=== PATIENT | female | born 1945 | race Caucasian/White ===

== ENCOUNTER → 2017-04-22 10:20 | Outpatient (CLI) | payer MEDICARE, SELFPAY ==
--- NOTE | 2017-04-22 10:27 | RAD_ITS ---
STUDY: X-RAY - THORACIC SPINE REASON FOR EXAM: Female, 71 years old. Chronic back pain. TECHNIQUE: 3 view(s) of the thoracic spine were obtained. COMPARISON: None. FINDINGS: Normal kyphosis of the thoracic spine. Mild dextroscoliosis. There is demineralization of the thoracic spine with endplate spondylosis. There is multilevel disc space narrowing of the thoracic spine. The soft tissue structures are unremarkable. RAD/Thoracic Spine 3 Views IMPRESSION: Multilevel disc space narrowing and spondylosis. Mild dextroscoliosis. Electronically Signed: Ty Martinez MD at 13:18 EST Tel [phone], Service support ,
== END ==
PROVIDERS: Family Provider Family Medicine; PCP Family Medicine; Visit Provider Anesthesiology Pain Medicine
DX: M54.9 Dorsalgia, unspecified (principal)
CPT/HCPCS: 72072

== ENCOUNTER → 2017-05-28 08:56 | Outpatient (CLI) | payer MEDICARE, OTHER, SELFPAY ==
--- NOTE | 2017-05-28 09:40 | CT_ITS ---
STUDY: CT BRAIN WITHOUT CONTRAST REASON FOR EXAM: Female, 71 years old. Cephalgia RADIATION DOSAGE (If Supplied By Facility): CTDIvol = ( 44.99 ) mGy, DLP = ( 745.49 ) mGycm TECHNIQUE: Transaxial CT imaging of the brain was performed without administration of intravenous contrast material. Individualized dose optimization techniques were used for this CT. COMPARISON: None. FINDINGS: Normal soft tissue structures. Normal calvarium. There is asymmetry of the ventricles consistent with an anatomic variant. There are areas of decreased attenuation within the white matter tracts of the supratentorial brain, consistent with microvascular disease changes. Normal basal ganglia and thalami. Normal brainstem. Normal cerebellum. There is no intracranial hemorrhage. There are no findings of an acute ischemic infarction. Normal visualized paranasal sinuses. CT/Brain/Head without Contrast IMPRESSION: Chronic involutional changes of the brain. Electronically Signed: Slava Armendariz MD at 10:32 EDT Tel , Service support ,
== END ==
PROVIDERS: Family Provider Family Medicine; PCP Family Medicine; Visit Provider Family Medicine
DX: R51 Headache (principal); C80.1 Malignant (primary) neoplasm, unspecified
CPT/HCPCS: 70450

== ENCOUNTER 2017-06-18 17:38 | Inpatient (IN) | payer MEDICARE, OTHER, SELFPAY ==
[2017-06-18 17:45] VITALS: BP 142/81; PULSE 60; RESP 16; TEMP 36.6; O2SAT 98
[2017-06-18 17:46] VITALS: BMI 37.2
[2017-06-18 18:08] VITALS: PULSE 60
[2017-06-18 19:00] VITALS: PULSE 61
[2017-06-18] MEDS: 0.9% Normal Saline 1,000 ML 100 ML IV (19:04)
--- NOTE | 2017-06-18 19:26 | PCM.HP.STD ---
Problem List (1) Breast CA Status: Acute (2) Ischemic cerebrovascular accident (CVA) Status: Acute (3) HTN (hypertension) Status: Chronic (4) Chronic pain syndrome Status: Acute (5) GERD (gastroesophageal reflux disease) Status: Acute (6) Osteoarthritis Status: Acute (7) Obesity Status: Acute (8) Asthma Status: Acute (9) Gout Status: Acute (10) Hyperuricemia Status: Acute (11) Dehydration Status: Acute History of Present Illness Date of Admission: 06/18/17 Chief Complaint: left arm and leg numbness and weakness and L facial droop. The patient is a 71 year old F with a past medical history of hyperuricemia, gout, osteoarthritis, asthma, hypertension, enlarged heart with history of CHF, heart murmur, chronic pain syndrome, GERD, endometriosis (status post KENNETH/BSO), diverticulosis and left breast cancer diagnosed in the fall 2016 (treated with lumpectomy and radiation) who presented to [facility] 06[facility]18[facility]17 c/o left facial droop, slurred speech, numbness and weakness of the left upper extremity and left leg. A CT scan of the brain showed no acute findings. Lab was remarkable for an elevated BUN and creatinine. She was transferred to [facility] for a neurology consult and MRI. She did not receive aspirin in the emergency room and she did tell me that she has not been taking the 81 mg of ASA prescribed to her daily. She has no prior history of a stroke. She tells me that she was diagnosed many years ago with an enlarged heart and congestive heart failure however a stress test done at [facility] in 2014 showed an ejection fraction of 76% with no evidence of ischemia. EKG sent with her from the emergency room shows normal sinus rhythm with a right bundle branch block and possible remote inferior wall myocardial infarction with Q waves in 3 and aVF. There are no suspicious ST or T-wave changes. She was admitted to a monitored bed on PCU with diagnosis of acute ischemic CVA. He is not a candidate for TPA as the symptoms started early this morning. TIA/CVA protocol was initiated. Past Medical History Past Medical History (Chronic Problems): Chronic Problems HTN (hypertension) (Chronic) Allergies ibandronate sodium [From Boniva] Allergy (Verified 03/29/14 13:04) Rash levofloxacin [From Levaquin] Allergy (Verified 03/29/14 13:04) Swelling Penicillins Allergy (Verified 03/29/14 12:48) Rash mannitol [From Reclast] Adverse Reaction (Verified 03/29/14 13:12) Pain in joints water for injection,sterile [From Reclast] Adverse Reaction (Verified 03/29/14 13:12) Pain in joints zoledronic acid [From Reclast] Adverse Reaction (Verified 03/29/14 13:12) Pain in joints LAMBERTO Allergy (Uncoded 12/20/14 15:26) Other ALL LAMBERTO'S NOVACAINE, MARCAINE, BUPIVACAINE Home Medications: Ambulatory Orders Medication Instructions Recorded Carvedilol [Coreg (Beta Philippe)] 12.5 mg PO BID 10/18/13 Cyclobenzaprine [Flexeril] 10 mg PO TID PRN #10 tablet 10/18/13 Furosemide [Lasix] 80 mg PO BID 10/18/13 Gabapentin [Neurontin] 300 mg PO BID 10/18/13 Tramadol HCl 50 mg PO PRN PRN 10/18/13 Albuterol Inhaler [Ventolin Hfa] 1 - 2 puff INHALATION Q4H PRN PRN 03/29/14 Allopurinol [Zyloprim] 300 mg PO DAILY 03/29/14 Potassium Chloride [Klor-Con M10] 10 meq PO DAILY 03/29/14 Zolpidem Tartrate [Ambien] 10 mg PO PRN PRN 03/29/14 Mometasone Furoate [Asmanex 220 220 mcg INHALATION DAILY 12/20/14 mcg Twisthaler] Ranitidine HCl [Zantac 75] 75 mg PO DAILY 12/20/14 Aspirin 325 mg PO BIDCM #60 tablet 12/26/14 Hydrocodone Bitart/Apap 5-325 1 - 2 tablet PO Q4H PRN PRN #100 12/26/14 [[place] 5/325] tablet Surgical History: cholecystectomy, hysterectomy - KENNETH with BSO for endometriosis, total knee arthroplasty - Left [address] 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 Paternal History Items: - - Father had heart disease Sibling History Items: Cancer - She has a brother who is secondary to cancer but she does not know the primary. Review of Systems Constitutional: Denies: Chills, Fever, Weight Change Eyes: Denies: Blurred vision, Redness HEENT: Denies: Difficulty Hearing, Difficulty Swallowing, Head Aches, Sinus Congestion, Sinus Drainage Cardiovascular: Reports: Light Headedness - she gets lightheaded at times when she is standing.. Denies: Chest Pain, Palpitations Respiratory: Denies: Cough, Shortness of Breath, Sputum production Gastrointestinal: Denies: Abdominal Pain, Nausea, Vomiting Genitourinary: Denies: Dysuria Gynecological: Denies: Vaginal discharge Skin: Denies: Jaundice, Rash, Wounds Neurological: Reports: Slurred speech, Focal weakness - Left arm and leg, Numbness - Left arm and leg and left face with facial droop and slurred speech. Denies: Blurred vision, Confusion, Difficulty swallowing, Tremor, Seizures Psychiatric: Denies: Anxiety, Depression, Homicidal Ideations, Suicidal Ideations Endocrine: Denies: Change in Body Habitus Hematologic/ Lymphatic: Denies: Hx of blood clot VTE Information - Inpt Only VTE Present on Admission: No VTE Mechan Device Prophylaxis: SCD's VTE Pharm Prophylaxis ordered?: Yes Patient Problems: Active and Suspected Problems Breast CA (Acute) Ischemic cerebrovascular accident (CVA) (Acute) Chronic pain syndrome (Acute) GERD (gastroesophageal reflux disease) (Acute) Osteoarthritis (Acute) Obesity (Acute) Asthma (Acute) Gout (Acute) Hyperuricemia (Acute) Dehydration (Acute) - Physical Exam General: Alert, Oriented x3, Cooperative, No apparent distress, Well developed, Well nourished HEENT: Atraumatic, PERRLA, EOMI, Normocephalic, - - L facial droop Oral: No Gingival or Mucosal Lesions/ Ulcerations, Dry Mucosa Neck: Supple, No JVD, Negative Carotid Bruits, No Nodes, No Nuchal Rigidity, Trachea Midline Lungs: Clear to auscultation, Normal air movement, No rhonchi, No wheeze, No rales Cardiovascular: Regular rate, Regular Rhythm, Normal S1, Normal S2, Murmur - 1-2/6 at the second RICS with no radiation, No rub noted, No Gallop Abdomen: Bowel Sounds Present, Soft, Non Tender, Non-Distended, Obese Extremities: No clubbing, No cyanosis, No edema, No Calf Tenderness, Peripheral Pulses Normal Skin: No rashes, No breakdown, - - Superficial varicosities lower extremities Musculoskeletal: No Muscle Wasting Neurological: Motor Exam 5/5 strength throughout, - - L facial droop and mild slurred speech...has drift with the LLE. Was able to walk to the BR with a cane with no LOB Psych/Mental Status: Normal Affect, Appropriate Vital Signs Temp Pulse Resp BP Pulse Ox 97.8 F 60 16 142/81 H 98 06/18/17 17:45 06/18/17 18:08 06/18/17 17:45 06/18/17 17:45 06/18/17 17:45 Oxygen Flow Rate (L/min) 2 Oxygen Delivery Method Nasal Cannula Weight: 197 lb 1.492 oz Body Mass Index (BMI) 37.2 Intake and Output for Last 24 Hours 06/16/17 06/17/17 06/18/17 23:59 23:59 23:59 Intake Total 273 / 273 Balance 273 / 273 Assessment/Plan Active and Suspected Problems Breast CA (Acute) Ischemic cerebrovascular accident (CVA) (Acute) Chronic pain syndrome (Acute) GERD (gastroesophageal reflux disease) (Acute) Osteoarthritis (Acute) Obesity (Acute) Asthma (Acute) Gout (Acute) Hyperuricemia (Acute) Dehydration (Acute) Impressions 1. ischemic CVA with LUE and LLE numbness and weakness and with Left facial droop and slurred speech/dysarthria. She was admitted to a monitored bed on PCU and the TIA/CVA protocol was initiated. Echocardiogram has been ordered for the a.m. She has an allergy to contrast dye and gets crushing chest pain. MRI without contrast and MRA of the head and neck without contrast have been ordered. Neurology consult with Dr. Gayle. Aspirin 81 mg p.o. daily. Lipid panel in the a.m. 2. Hypertension 3. Breast cancer with history of left side lumpectomy and radiation in the fall 2017 4. GERD 5. Asthma 6. Obesity 7. Right bundle branch block 8. Hyperuricemia with history of gout 9. Osteoarthritis 10. History of endometriosis-status post KENNETH/BSO 11. History of diverticulosis 12. dehydration with an increased BUN/CREAT ratio and very dry MM Bolus with 500 cc's normal saline and start 100 cc/hr after the bolus. Hold diuretics. PT/ST/OT consults. Passed the bedside swallowing eval so will start a cardiac diet. Permissive HTN - will continue the Coreg to prevent reflex tachycardia Lipid panel in the AM and start Atorvastatin tonight Code Visit Inpatient E&M: 49996 Init Hosp L3
--- NOTE | 2017-06-18 19:32 | HP.PCM_ITS ---
Problem List (1) Breast CA Status: Acute (2) Ischemic cerebrovascular accident (CVA) Status: Acute (3) HTN (hypertension) Status: Chronic (4) Chronic pain syndrome Status: Acute (5) GERD (gastroesophageal reflux disease) Status: Acute (6) Osteoarthritis Status: Acute (7) Obesity Status: Acute (8) Asthma Status: Acute (9) Gout Status: Acute (10) Hyperuricemia Status: Acute (11) Dehydration Status: Acute History of Present Illness Date of Admission: 06/18/17 Chief Complaint: left arm and leg numbness and weakness and L facial droop. The patient is a 71 year old F with a past medical history of hyperuricemia, gout, osteoarthritis, asthma, hypertension, enlarged heart with history of CHF, heart murmur, chronic pain syndrome, GERD, endometriosis (status post KENNETH/BSO), diverticulosis and left breast cancer diagnosed in the fall 2016 (treated with lumpectomy and radiation) who presented to [facility] on 06/18/17 c/o left facial droop, slurred speech, numbness and weakness of the left upper extremity and left leg. A CT scan of the brain showed no acute findings. Lab was remarkable for an elevated BUN and creatinine. She was transferred to [facility] for a neurology consult and MRI. She did not receive aspirin in the emergency room and she did tell me that she has not been taking the 81 mg of ASA prescribed to her daily. She has no prior history of a stroke. She tells me that she was diagnosed many years ago with an enlarged heart and congestive heart failure however a stress test done at [facility] in 2014 showed an ejection fraction of 76% with no evidence of ischemia. EKG sent with her from the emergency room shows normal sinus rhythm with a right bundle branch block and possible remote inferior wall myocardial infarction with Q waves in 3 and aVF. There are no suspicious ST or T-wave changes. She was admitted to a monitored bed on PCU with diagnosis of acute ischemic CVA. He is not a candidate for TPA as the symptoms started early this morning. TIA/CVA protocol was initiated. Past Medical History Past Medical History (Chronic Problems): Chronic Problems HTN (hypertension) (Chronic) Allergies ibandronate sodium [From Boniva] Allergy (Verified 03/29/14 13:04) Rash levofloxacin [From Levaquin] Allergy (Verified 03/29/14 13:04) Swelling Penicillins Allergy (Verified 03/29/14 12:48) Rash mannitol [From Reclast] Adverse Reaction (Verified 03/29/14 13:12) Pain in joints water for injection,sterile [From Reclast] Adverse Reaction (Verified 03/29/14 13:12) Pain in joints zoledronic acid [From Reclast] Adverse Reaction (Verified 03/29/14 13:12) Pain in joints LAMBERTO Allergy (Uncoded 12/20/14 15:26) Other ALL LAMBERTO'S NOVACAINE, MARCAINE, BUPIVACAINE Home Medications: Ambulatory Orders Medication Instructions Recorded Carvedilol [Coreg (Beta Philippe)] 12.5 mg PO BID 10/18/13 Cyclobenzaprine [Flexeril] 10 mg PO TID PRN #10 tablet 10/18/13 Furosemide [Lasix] 80 mg PO BID 10/18/13 Gabapentin [Neurontin] 300 mg PO BID 10/18/13 Tramadol HCl 50 mg PO PRN PRN 10/18/13 Albuterol Inhaler [Ventolin Hfa] 1 - 2 puff INHALATION Q4H PRN PRN 03/29/14 Allopurinol [Zyloprim] 300 mg PO DAILY 03/29/14 Potassium Chloride [Klor-Con M10] 10 meq PO DAILY 03/29/14 Zolpidem Tartrate [Ambien] 10 mg PO PRN PRN 03/29/14 Mometasone Furoate [Asmanex 220 220 mcg INHALATION DAILY 12/20/14 mcg Twisthaler] Ranitidine HCl [Zantac 75] 75 mg PO DAILY 12/20/14 Aspirin 325 mg PO BIDCM #60 tablet 12/26/14 Hydrocodone Bitart/Apap 5-325 1 - 2 tablet PO Q4H PRN PRN #100 12/26/14 [Sargent 5/325] tablet Surgical History: cholecystectomy, hysterectomy - KENNETH with BSO for endometriosis , total knee arthroplasty - Left [address] 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 Paternal History Items: - - Father had heart disease Sibling History Items: Cancer - She has a brother who is secondary to cancer but she does not know the primary. Review of Systems Constitutional: Denies: Chills, Fever, Weight Change Eyes: Denies: Blurred vision, Redness HEENT: Denies: Difficulty Hearing, Difficulty Swallowing, Head Aches, Sinus Congestion, Sinus Drainage Cardiovascular: Reports: Light Headedness - she gets lightheaded at times when she is standing.. Denies: Chest Pain, Palpitations Respiratory: Denies: Cough, Shortness of Breath, Sputum production Gastrointestinal: Denies: Abdominal Pain, Nausea, Vomiting Genitourinary: Denies: Dysuria Gynecological: Denies: Vaginal discharge Skin: Denies: Jaundice, Rash, Wounds Neurological: Reports: Slurred speech, Focal weakness - Left arm and leg, Numbness - Left arm and leg and left face with facial droop and slurred speech. Denies: Blurred vision, Confusion, Difficulty swallowing, Tremor, Seizures Psychiatric: Denies: Anxiety, Depression, Homicidal Ideations, Suicidal Ideations Endocrine: Denies: Change in Body Habitus Hematologic/ Lymphatic: Denies: Hx of blood clot VTE Information - Inpt Only VTE Present on Admission: No VTE Mechan Device Prophylaxis: SCD's VTE Pharm Prophylaxis ordered?: Yes Patient Problems: Active and Suspected Problems Breast CA (Acute) Ischemic cerebrovascular accident (CVA) (Acute) Chronic pain syndrome (Acute) GERD (gastroesophageal reflux disease) (Acute) Osteoarthritis (Acute) Obesity (Acute) Asthma (Acute) Gout (Acute) Hyperuricemia (Acute) Dehydration (Acute) - Physical Exam General: Alert, Oriented x3, Cooperative, No apparent distress, Well developed, Well nourished HEENT: Atraumatic, PERRLA, EOMI, Normocephalic, - - L facial droop Oral: No Gingival or Mucosal Lesions/ Ulcerations, Dry Mucosa Neck: Supple, No JVD, Negative Carotid Bruits, No Nodes, No Nuchal Rigidity, Trachea Midline Lungs: Clear to auscultation, Normal air movement, No rhonchi, No wheeze, No rales Cardiovascular: Regular rate, Regular Rhythm, Normal S1, Normal S2, Murmur - 1-2 /6 at the second RICS with no radiation, No rub noted, No Gallop Abdomen: Bowel Sounds Present, Soft, Non Tender, Non-Distended, Obese Extremities: No clubbing, No cyanosis, No edema, No Calf Tenderness, Peripheral Pulses Normal Skin: No rashes, No breakdown, - - Superficial varicosities lower extremities Musculoskeletal: No Muscle Wasting Neurological: Motor Exam 5/5 strength throughout, - - L facial droop and mild slurred speech...has drift with the LLE. Was able to walk to the BR with a cane with no LOB Psych/Mental Status: Normal Affect, Appropriate Vital Signs Temp Pulse Resp BP Pulse Ox 97.8 F 60 16 142/81 H 98 06/18/17 17:45 06/18/17 18:08 06/18/17 17:45 06/18/17 17:45 06/18/17 17:45 Oxygen Flow Rate (L/min) 2 Oxygen Delivery Method Nasal Cannula Weight: 197 lb 1.492 oz Body Mass Index (BMI) 37.2 Intake and Output for Last 24 Hours 06/16/17 06/17/17 06/18/17 23:59 23:59 23:59 Intake Total 273 / 273 Balance 273 / 273 Assessment/Plan Active and Suspected Problems Breast CA (Acute) Ischemic cerebrovascular accident (CVA) (Acute) Chronic pain syndrome (Acute) GERD (gastroesophageal reflux disease) (Acute) Osteoarthritis (Acute) Obesity (Acute) Asthma (Acute) Gout (Acute) Hyperuricemia (Acute) Dehydration (Acute) Impressions 1. ischemic CVA with LUE and LLE numbness and weakness and with Left facial droop and slurred speech/dysarthria. She was admitted to a monitored bed on PCU and the TIA/CVA protocol was initiated. Echocardiogram has been ordered for the a.m. She has an allergy to contrast dye and gets crushing chest pain. MRI without contrast and MRA of the head and neck without contrast have been ordered. Neurology consult with Dr. Gayle. Aspirin 81 mg p.o. daily. Lipid panel in the a.m. 2. Hypertension 3. Breast cancer with history of left side lumpectomy and radiation in the fall 2017 4. GERD 5. Asthma 6. Obesity 7. Right bundle branch block 8. Hyperuricemia with history of gout 9. Osteoarthritis 10. History of endometriosis-status post KENNETH/BSO 11. History of diverticulosis 12. dehydration with an increased BUN/CREAT ratio and very dry MM Bolus with 500 cc's normal saline and start 100 cc/hr after the bolus. Hold diuretics. PT/ST/OT consults. Passed the bedside swallowing eval so will start a cardiac diet. Permissive HTN - will continue the Coreg to prevent reflex tachycardia Lipid panel in the AM and start Atorvastatin tonight Code Visit Inpatient E&M: 32433 Init Hosp L3
--- NOTE | 2017-06-18 19:47 | NURSING ---
This nurse was unable to complete home medication reconciliation as patients roommate forgot to bring her medication list. Dr. Mullins aware. Patient's roommate will bring medication list on dump mot[employer]. YANNI Santiago aware.
--- NOTE | 2017-06-18 19:53 | ECHOD_ITS ---
Reason For Study: TIA/CVA Procedure This was a 2D Doppler, Color Flow transthoracic echocardiogram. Exam performed portable in patient room. Left Ventricle Normal LV size. Left ventricular systolic function is normal. The estimated ejection fraction is 60 %. Transmitral diastolic flow velocities suggest mild (stage 1) diastolic dysfunction (reversed pattern). No regional wall motion abnormalities noted. Right Ventricle Normal RV size. Normal systolic function. Atria Normal left atrium. Normal right atrium. Bubble contrast study negative for right to left interatrial shunt. Mitral Valve Normal mitral valve. Mild (1+) eccentric mitral valve insufficiency. Tricuspid Valve Normal tricuspid valve. Mild (1+) tricuspid valve insufficiency. Pulmonary artery systolic pressure is 32 mmHg. Aortic Valve Normal aortic valve. Mild (1+) eccentric aortic valve insufficiency. Pulmonic Valve Normal pulmonic valve. Great Vessels Normal aortic root. The pulmonary artery is normal size. Normal inferior vena cava. Pericardium/Pleural No pericardial effusion. Medication Performed a rapid injection of agitated mix of 9 cc saline and 1cc air to assess for atrial septal defect. MMode/2D Measurements & Calculations LVIDd: 4.0 cm IVSd: 1.1 cm Ao root diam: 3.4 cm LVIDs: 2.6 cm LVPWd: 1.2 cm LA dimension: 4.8 cm RVDd: 2.8 cm FS: 33.3 % LAV(MOD-bp): 47.9 ml LAV(MOD-bp) Indexed: 25.5 ml/m2 LA A4 area: 14.8 cm2 RA A4 area: 14.0 cm2 LAV(MOD-sp2): 60.2 ml LAV(MOD-sp4): 36.3 ml Doppler Measurements & Calculations MV E max alonso: 74.1 cm/sec Lat Peak E' Alonso: 6.0 cm/sec Med Peak E' Alonso: 2.9 cm/sec MV A max alonso: 127.9 cm/sec E/E' lat: 12.3 E/E' med: 25.5 MV E/A: 0.58 Ao V2 max: 164.4 cm/sec AI max alonso: 383.5 cm/sec LV V1 max: 123.7 cm/sec Ao max P.8 mmHg AI max P.8 mmHg LV V1 max P.1 mmHg Ao V2 mean: 112.8 cm/sec AI dec slope: 224.4 cm/sec2 Ao mean P.6 mmHg AI P1/2t: 500.6 msec Ao V2 VTI: 37.1 cm PA V2 max: 92.3 cm/sec TR max alonso: 267.1 cm/sec TR max P.6 mmHg Interpretation Summary Normal LV size. Left ventricular systolic function is normal. The estimated ejection fraction is 60 %. Transmitral diastolic flow velocities suggest mild (stage 1) diastolic dysfunction (reversed pattern). Mild (1+) eccentric mitral valve insufficiency. Mild (1+) tricuspid valve insufficiency. Mild (1+) eccentric aortic valve insufficiency. Ordering Physician: Kaylene Mullins Referring Physician: Mirlande Khoury Performed By: Dolores Serrano, WILLIAN, RVT
--- NOTE | 2017-06-18 19:53 | EKG12_ITS ---
Test Reason : ADMIT EKG Blood Pressure : / mmHG Vent. Rate : 061 BPM Atrial Rate : 061 BPM P-R Int : 210 ms QRS Dur : 134 ms QT Int : 460 ms P-R-T Axes : 038 035 019 degrees QTc Int : 463 ms Sinus rhythm with 1st degree A-V block Right bundle branch block Abnormal ECG When compared with ECG of 18-OCT-2013 17:48, Right bundle branch block is now Present Confirmed by ALISON PAULA ([id number]), editor index KAVYA HERRERA ([id number]) on 06/24/2017 3:00:04 PM Referred By: Rede Cummings Confirmed By:ALISON PAULA
--- NOTE | 2017-06-18 20:07 | RAD_ITS ---
STUDY: X-RAY CHEST REASON FOR EXAM: Female, 71 years old. CHF and cough TECHNIQUE: PA and lateral COMPARISON: March 29, 2014 FINDINGS: The lungs are clear and expanded. There is no demonstrated pleural abnormality. Normal size heart. Normal mediastinum and nicole. Normal visualized pulmonary arteries. Normal visualized aortic arch and descending thoracic aorta. Dorsal spine demonstrates scoliosis and degenerative changes.. Normal visualized ribs, clavicles, and shoulders. There is no demonstrated abnormality of the visualized soft tissue structures of the upper abdomen. No significant change since prior study RAD/Chest PA and Lateral IMPRESSION: No acute cardiopulmonary pathology Electronically Signed: Daniel Pedraza MD at 20:54 EDT , Service support ,
[2017-06-18 20:35] VITALS: O2SAT 95
[2017-06-18 21:08] LABS: AST(SGOT) 15 U/L (15-37); Alanine Aminotransfer ALT/SGPT 17 U/L (13-56); Albumin, Serum 3.3 g/dL (3.2-5.0); Alkaline Phosphatase 150 U/L (45-117); Bilirubin, Direct 0.17 mg/dL (0.00-0.30); Globulin 3.4 g/dL (2.2-4.2); Magnesium 2.6 mg/dL (1.6-2.6); Protein, Total 6.7 g/dL (6.4-8.2); Thyroid Stim Hormone (TSH) 1.36 uIU/mL (0.358-3.74)
[2017-06-18] MEDS: Enoxaparin 30 MG/0.3 ML Syringe SC (21:37)
[2017-06-18] MEDS: Carvedilol 12.5 MG Tablet PO (21:38)
[2017-06-18] MEDS: Pantoprazole Sodium 20 MG Tablet PO (21:38)
[2017-06-18] MEDS: Gabapentin 300 MG Capsule PO (21:38)
[2017-06-18] MEDS: Atorvastatin Calcium 80 MG Tablet PO (21:38)
[2017-06-18 21:45] VITALS: BP 144/81; PULSE 64; RESP 16; TEMP 37.1; O2SAT 95
[2017-06-18 23:00] VITALS: PULSE 64
[2017-06-19] VITALS (15 sets, daily range): BP systolic 125–199; BP diastolic 67–96; PULSE 50–80; RESP 16–21; TEMP 36.6–37.1; O2SAT 94–97; BMI 37.2
[2017-06-19] MEDS: 0.9% Normal Saline 1,000 ML 100 ML IV ×2 (01:35→14:13)
[2017-06-19 05:45] LABS: Hemoglobin 12.2 g/dl (12.0-15.0); Mean Corp Hgb Conc 32.1 g/gl (32-36); Mean Corpuscular Hgb 29.7 pg (27.0-32.0); Mean Corpuscular Volume 92.5 fL (81-99); Mean Platelet Vol. 12.2 fl (6.2-12.0); Platelet Count 148 K/mm3 (150-450); RBC Distribution Width CV 14.5 % (11.6-14.6); RBC Distribution Width SD 47.9 fl (35.1-43.9); Red Blood Count 4.11 M/mm3 (4.2-5.4); White Blood Count 8.9 K/mm3 (4.4-11.0)
[2017-06-19 05:52] LABS: Scan Indicated on CBC? Y/N NO
[2017-06-19] MEDS: Budesonide Respules 0.5 MG/2 ML AMPUL.NEB. INHALATION ×2 (07:21→18:50)
[2017-06-19 09:31] LABS: ALB/GLOB Ratio 0.9 RATIO (0.9-2.4); AST(SGOT) 14 U/L (15-37); Alanine Aminotransfer ALT/SGPT 14 U/L (13-56); Albumin, Serum 2.9 g/dL (3.2-5.0); Alkaline Phosphatase 129 U/L (45-117); Anion Gap 8 (5-15); BUN 32 mg/dL (7-18); BUN/Creat Ratio 26.9 RATIO (10-20); Calcium,Total 8.7 mg/dL (8.5-10.1); Chloride 109 mmol/L (98-107); Cholesterol 175 mg/dL (200); Creatinine, Serum 1.19 mg/dL (0.55-1.02); EST Glomerular Filtration Rate 47 mL/min (>60); Est Glom Filt Rate - Afr Amer 57 mL/min (>60); Estimated Creatinine Clearance 31.77 ml/min; Globulin 3.2 g/dL (2.2-4.2); Glucose 109 mg/dL (74-106); High Density Lipoprotein 68 mg/dL; Magnesium 2.6 mg/dL (1.6-2.6); Phosphorus 3.4 mg/dL (2.5-4.9); Potassium 3.5 mmol/L (3.5-5.1); Protein, Total 6.1 g/dL (6.4-8.2); Sodium Level 144 mmol/L (136-145); Triglycerides 94 mg/dL; Very Low Density Lipoprotein 19 mg/dL (5-40)
[2017-06-19] MEDS: Aspirin 81 MG TAB.CHEW PO (11:13)
[2017-06-19] MEDS: Atorvastatin Calcium 80 MG Tablet PO (11:13)
[2017-06-19] MEDS: Pantoprazole Sodium 20 MG Tablet PO ×2 (11:13→21:52)
[2017-06-19] MEDS: Enoxaparin 30 MG/0.3 ML Syringe SC (11:13)
[2017-06-19] MEDS: Carvedilol 12.5 MG Tablet PO ×2 (11:14→21:52)
[2017-06-19] MEDS: Gabapentin 100 MG Capsule PO ×2 (11:14→16:46)
--- NOTE | 2017-06-19 13:44 | CON.PCM_ITS ---
Reason for Consult Date of Consultation: 06/19/17 Reason for Consultation: cva History of Present Illness: The patient is a 71 year old F yesterday am noted dizzyness, left arm weakness and slurred speech. much improved today. not baseline. reportedly mri showed stroke. dosent take asa daily. nonsmoker for many years. reports bp elevated at home lately, associated with significant stress. reports sbp around 148-168. no snoring or eds. The patient is a 71 year old F with a past medical history of hyperuricemia, gout, osteoarthritis, asthma, hypertension, enlarged heart with history of CHF, heart murmur, chronic pain syndrome, GERD, endometriosis (status post KENNETH/BSO), diverticulosis and left breast cancer diagnosed in the fall 2016 (treated with lumpectomy and radiation) who presented to [facility] on 06/18/17 c/o left facial droop, slurred speech, numbness and weakness of the left upper extremity and left leg. A CT scan of the brain showed no acute findings. Lab was remarkable for an elevated BUN and creatinine. She was transferred to [facility] for a neurology consult and MRI. She did not receive aspirin in the emergency room and she did tell me that she has not been taking the 81 mg of ASA prescribed to her daily. She has no prior history of a stroke. She tells me that she was diagnosed many years ago with an enlarged heart and congestive heart failure however a stress test done at [facility] in 2014 showed an ejection fraction of 76% with no evidence of ischemia. EKG sent with her from the emergency room shows normal sinus rhythm with a right bundle branch block and possible remote inferior wall myocardial infarction with Q waves in 3 and aVF. There are no suspicious ST or T-wave changes. She was admitted to a monitored bed on PCU with diagnosis of acute ischemic CVA. He is not a candidate for TPA as the symptoms started early this morning. TIA/CVA protocol was initiated. Past Medical History Past Medical History (Chronic Problems): Chronic Problems HTN (hypertension) (Chronic) Allergies Gadolinium-MRI Contrast Medium [MRI] Allergy (Verified 06/18/17 23:02) Chest tightness ibandronate sodium [From Boniva] Allergy (Verified 03/29/14 13:04) Rash levofloxacin [From Levaquin] Allergy (Verified 03/29/14 13:04) Swelling Penicillins Allergy (Verified 03/29/14 12:48) Rash mannitol [From Reclast] Adverse Reaction (Verified 03/29/14 13:12) Pain in joints water for injection,sterile [From Reclast] Adverse Reaction (Verified 03/29/14 13:12) Pain in joints zoledronic acid [From Reclast] Adverse Reaction (Verified 03/29/14 13:12) Pain in joints LAMBERTO Allergy (Uncoded 12/20/14 15:26) Other ALL LAMBERTO'S NOVACAINE, MARCAINE, BUPIVACAINE Home Medications: Ambulatory Orders Medication Instructions Recorded Carvedilol [Coreg (Beta Philippe)] 12.5 mg PO BID 10/18/13 Furosemide [Lasix] 80 mg PO DAILY 10/18/13 Gabapentin [Neurontin] 300 mg PO QHS 10/18/13 Tramadol HCl 50 mg PO TID PRN PRN 10/18/13 Allopurinol [Zyloprim] 100 mg PO DAILY 03/29/14 Potassium Chloride [Klor-Con M10] 10 meq PO DAILY 03/29/14 Mometasone Furoate [Asmanex 220 2 puff INHALATION DAILY 12/20/14 mcg Twisthaler] Ranitidine HCl [Zantac 75] 75 mg PO DAILY 12/20/14 Acetaminophen 650 mg PO Q4H PRN PRN 06/18/17 Aspirin 81 mg PO DAILY 06/18/17 Cyanocobalamin (Vitamin B-12) 100 mcg PO DAILY 06/18/17 Fluticasone 110 Mcg [Flovent (SP)] 1 puff INHALATION BID 06/18/17 Gabapentin [Neurontin] 100 mg PO BID 06/18/17 Hydrocortisone 2.5% Crm [Hytone] 1 applicatio TOPICAL DAILY PRN 06/18/17 Losartan Potassium 25 mg PO DAILY 06/18/17 Meloxicam 7.5 mg PO BID 06/18/17 Multivitamins,Ther W-Minerals 1 tablet PO DAILY 06/18/17 [Multivitamin With Minerals] Surgical History: cholecystectomy, hysterectomy - KENNETH with BSO for endometriosis , total knee arthroplasty - Left [address] 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 Paternal History Items: - - Father had heart disease Sibling History Items: Cancer - She has a brother who is secondary to cancer but she does not know the primary. Review of Systems Constitutional: Denies: Chills, Fever, Weight Change HEENT: Denies: Head Aches, Sinus Congestion, Sinus Drainage Cardiovascular: Denies: Chest Pain, Palpitations Respiratory: Denies: Cough, Shortness of breath at rest, Sputum production Gastrointestinal: Denies: Abdominal Pain, Nausea, Vomiting Genitourinary: Denies: Dysuria Musculoskeletal: Denies: Joint Pain, Joint Tenderness Skin: Denies: Rash, Wounds Neurological: Denies: Numbness, Tingling, Focal weakness Psychiatric: Denies: Anxiety, Depression, Homicidal Ideations, Suicidal Ideations Hematologic/ Lymphatic: Denies: Easy Bruising, Easy Bleeding Patient Problems: Active and Suspected Problems Breast CA (Acute) Ischemic cerebrovascular accident (CVA) (Acute) Chronic pain syndrome (Acute) GERD (gastroesophageal reflux disease) (Acute) Osteoarthritis (Acute) Obesity (Acute) Asthma (Acute) Gout (Acute) Hyperuricemia (Acute) Dehydration (Acute) - Physical Exam General: Alert, Oriented x3, Cooperative HEENT: Atraumatic, PERRLA, EOMI, Normocephalic Neck: Supple, No JVD, Negative Carotid Bruits Lungs: Clear to auscultation, Normal air movement Cardiovascular: Regular rate, No murmurs Abdomen: Bowel Sounds Present, Soft, Non Tender Extremities: No edema, Capillary Refill Less than 3 Seconds Skin: No rashes, No breakdown Musculoskeletal: No Tenderness to Palpation of Joints or Extremities Neurological: Cranial nerves II-XII grossly intact, - - mild left discoord and left [place]. Psych/Mental Status: Normal Affect, Appropriate Vital Signs Temp Pulse Resp BP Pulse Ox 36.8 C 60 18 137/67 H 94 06/19/17 12:37 06/19/17 12:37 06/19/17 12:37 06/19/17 12:37 06/19/17 12:37 Oxygen Flow Rate (L/min) 2 Oxygen Delivery Method Room Air Weight: 89.4 kg Body Mass Index (BMI) 37.2 Intake and Output for Last 24 Hours 06/17/17 06/18/17 06/19/17 23:59 23:59 23:59 Intake Total 273 / 273 2352 / 2352 Balance 273 / 273 2352 / 2352 Laboratory Tests Past 24 Hrs 06/18/17 06/19/17 06/19/17 20:27 01:00 05:28 WBC 8.9 RBC 4.11 L Hgb 12.2 Hct 38.0 MCV 92.5 MCH 29.7 MCHC 32.1 RDW 14.5 RDW Differential 47.9 H Plt Count 148 L MPV 12.2 H Sodium Potassium Chloride Carbon Dioxide Anion Gap BUN Creatinine Estim Creat Clear Calc Est GFR (MDRD) Af Amer Est GFR (MDRD) Non-Af BUN/Creatinine Ratio Glucose Calcium Phosphorus Magnesium 2.6 Total Bilirubin 0.60 Direct Bilirubin 0.17 AST 15 ALT 17 Alkaline Phosphatase 150 H Troponin I < 0.02 < 0.02 Total Protein 6.7 Albumin 3.3 Globulin 3.4 Albumin/Globulin Ratio Triglycerides Cholesterol LDL Cholesterol VLDL Cholesterol HDL Cholesterol TSH 1.36 06/19/17 06/19/17 06/19/17 05:28 05:28 10:53 WBC RBC Hgb Hct MCV MCH MCHC RDW RDW Differential Plt Count MPV Sodium 144 Potassium 3.5 Chloride 109 H Carbon Dioxide 27.0 Anion Gap 8 BUN 32 H Creatinine 1.19 H Estim Creat Clear Calc 31.77 Est GFR (MDRD) Af Amer 57 L Est GFR (MDRD) Non-Af 47 L BUN/Creatinine Ratio 26.9 H Glucose 109 H Calcium 8.7 Phosphorus 3.4 Magnesium 2.6 Total Bilirubin 0.40 Direct Bilirubin AST 14 L ALT 14 Alkaline Phosphatase 129 H Troponin I < 0.02 < 0.02 Total Protein 6.1 L Albumin 2.9 L Globulin 3.2 Albumin/Globulin Ratio 0.9 Triglycerides 94 Cholesterol 175 LDL Cholesterol 88 VLDL Cholesterol 19 HDL Cholesterol 68 TSH Current Home Med List Medication Instructions Recorded Confirmed Type Carvedilol [Coreg (Beta Philippe)] 12.5 mg PO BID 10/18/13 12/20/14 History Furosemide [Lasix] 80 mg PO DAILY 10/18/13 12/20/14 History Gabapentin [Neurontin] 300 mg PO QHS 10/18/13 12/25/14 History Tramadol HCl 50 mg PO TID PRN PRN 10/18/13 12/20/14 History Allopurinol [Zyloprim] 100 mg PO DAILY 03/29/14 12/20/14 History Potassium Chloride [Klor-Con M10] 10 meq PO DAILY 03/29/14 12/20/14 History Mometasone Furoate [Asmanex 220 2 puff INHALATION DAILY 12/20/14 12/20/14 History mcg Twisthaler] Ranitidine HCl [Zantac 75] 75 mg PO DAILY 12/20/14 12/20/14 History Acetaminophen 650 mg PO Q4H PRN PRN 06/18/17 06/18/17 History Aspirin 81 mg PO DAILY 06/18/17 06/18/17 History Cyanocobalamin (Vitamin B-12) 100 mcg PO DAILY 06/18/17 06/18/17 History Fluticasone 110 Mcg [Flovent (SP)] 1 puff INHALATION BID 06/18/17 06/18/17 History Gabapentin [Neurontin] 100 mg PO BID 06/18/17 06/18/17 History Hydrocortisone 2.5% Crm [Hytone] 1 applicatio TOPICAL DAILY PRN 06/18/17 History Losartan Potassium 25 mg PO DAILY 06/18/17 06/18/17 History Meloxicam 7.5 mg PO BID 06/18/17 06/18/17 History Multivitamins,Ther W-Minerals 1 tablet PO DAILY 06/18/17 06/18/17 History [Multivitamin With Minerals] Current Medications Generic Name Dose Route Start Last Admin Trade Name Freq PRN Reason Stop Dose Admin Acetaminophen 650 mg 06/18/17 19:53 Tylenol PO Q4H PRN PRN pain/fever Allopurinol 100 mg 06/19/17 11:15 Zyloprim PO DAILY ALEXANDER Atorvastatin Calcium 80 mg 06/18/17 22:00 06/19/17 11:13 Lipitor PO 80 mg DAILY ALEXANDER Administration Budesonide 0.5 mg 06/18/17 20:30 06/19/17 07:21 Pulmicort Aerosol INHALATION 0.5 mg Q12H.RT ALEXANDER Administration Carvedilol 12.5 mg 06/18/17 22:00 06/19/17 11:14 Coreg PO 12.5 mg BID ALEXANDER Administration Clopidogrel Bisulfate 75 mg 06/20/17 10:00 Plavix PO DAILY ALEXANDER Cyclobenzaprine HCl 10 mg 06/18/17 19:53 Flexeril PO TID PRN MUSCLE SPASM Enoxaparin Sodium 30 mg 06/19/17 10:00 06/19/17 11:13 Lovenox SC 30 mg DAILY@1000 ALEXANDER Administration Gabapentin 300 mg 06/18/17 22:00 06/18/17 21:38 Neurontin PO 300 mg QHS ALEXANDER Administration Gabapentin 100 mg 06/19/17 08:00 06/19/17 11:14 Neurontin PO 100 mg BIDCM ALEXANDER Administration Sodium Chloride 1,000 mls @ 100 mls/hr 06/18/17 19:12 06/19/17 01:35 IV 100 mls/hr .Q10H ALEXANDER Administration Magnesium Hydroxide 30 ml 06/18/17 19:53 Milk Of Magnesia PO DAILY PRN Constipation Pantoprazole Sodium 20 mg 06/18/17 22:00 06/19/17 11:13 Protonix PO 20 mg BID ALEXANDER Administration Potassium Chloride 10 meq 06/19/17 10:00 06/19/17 11:13 K-Dur PO 10 meq DAILY ALEXANDER Administration Sodium Chloride 5 - 30 ml 06/18/17 19:00 IV UD PRN SALINE FLUSH Tramadol HCl 50 mg 06/18/17 19:53 Ultram PO TID PRN PRN PAIN mri reviewed, acute small right mca distribution infarct in temporal lobe mra no significant stenosis, left affiliate marketing manager stenosis incidental Assessment/Plan Active and Suspected Problems Breast CA (Acute) Ischemic cerebrovascular accident (CVA) (Acute) Chronic pain syndrome (Acute) GERD (gastroesophageal reflux disease) (Acute) Osteoarthritis (Acute) Obesity (Acute) Asthma (Acute) Gout (Acute) Hyperuricemia (Acute) Dehydration (Acute) acute right mca distribution infarct, small, improved sx. affiliate marketing manager stenosis incidental bp control statin echo: nl tele pt/ot/sp dc when ambulating safely with op followup
[2017-06-19] MEDS: Allopurinol 100 MG Tablet PO (16:46)
--- NOTE | 2017-06-19 18:21 | PCM.PROGNOTE ---
Subjective: Patient was seen and examined today, her MRI of the brain revealed a right superior frontal lobe cortical based acute infarction. Neurology saw the patient today and felt the patient was stable for discharge as long as she could walk. Unfortunately physical therapy was not able to fully evaluate the patient today and the patient lives with a friend who will not be at her home this evening to supervise the patient. I feel the patient should be more ambulatory before she is discharged, I placed the patient on Plavix today as she was taken a baby aspirin per day prior to coming into the hospital. - Physical Exam General: Alert, Oriented x3, Cooperative, No apparent distress, Well developed, Well nourished HEENT: Atraumatic, PERRLA, EOMI, Normocephalic Oral: Moist Mucosa Neck: Supple, No JVD, No Nuchal Rigidity, Trachea Midline, Thyroid Normal Size and Texture Lungs: Clear to auscultation, Normal air movement, No rhonchi, No wheeze, No rales Cardiovascular: Regular rate, No murmurs Abdomen: Bowel Sounds Present, Soft, Non Tender, Non-Distended, No hernias noted Extremities: No clubbing, No cyanosis, No edema, Capillary Refill Less than 3 Seconds Skin: No rashes, No breakdown Musculoskeletal: No Muscle Wasting Neurological: Cranial nerves II-XII grossly intact, Neuro grossly intact, Slurred Speech, - - There is left-sided weakness noted on examination Psych/Mental Status: Normal Affect, Appropriate, Alert and oriented to time, place, person, mood and affect Vital Signs Temp Pulse Resp BP Pulse Ox 98.2 F 58 L 18 148/68 H 96 06/19/17 16:30 06/19/17 16:30 06/19/17 16:30 06/19/17 16:30 06/19/17 16:30 Oxygen Flow Rate (L/min) 2 Oxygen Delivery Method Room Air Weight: 89.4 kg Body Mass Index (BMI) 37.2 Intake and Output for Last 24 Hours 06/17/17 06/18/17 06/19/17 23:59 23:59 23:59 Intake Total 273 / 273 2352 / 2352 Balance 273 / 273 2352 / 2352 Laboratory Tests Past 24 Hrs 06/18/17 06/19/17 06/19/17 20:27 01:00 05:28 WBC 8.9 RBC 4.11 L Hgb 12.2 Hct 38.0 MCV 92.5 MCH 29.7 MCHC 32.1 RDW 14.5 RDW Differential 47.9 H Plt Count 148 L MPV 12.2 H Sodium Potassium Chloride Carbon Dioxide Anion Gap BUN Creatinine Estim Creat Clear Calc Est GFR (MDRD) Af Amer Est GFR (MDRD) Non-Af BUN/Creatinine Ratio Glucose Calcium Phosphorus Magnesium 2.6 Total Bilirubin 0.60 Direct Bilirubin 0.17 AST 15 ALT 17 Alkaline Phosphatase 150 H Troponin I < 0.02 < 0.02 Total Protein 6.7 Albumin 3.3 Globulin 3.4 Albumin/Globulin Ratio Triglycerides Cholesterol LDL Cholesterol VLDL Cholesterol HDL Cholesterol TSH 1.36 06/19/17 06/19/17 06/19/17 05:28 05:28 10:53 WBC RBC Hgb Hct MCV MCH MCHC RDW RDW Differential Plt Count MPV Sodium 144 Potassium 3.5 Chloride 109 H Carbon Dioxide 27.0 Anion Gap 8 BUN 32 H Creatinine 1.19 H Estim Creat Clear Calc 31.77 Est GFR (MDRD) Af Amer 57 L Est GFR (MDRD) Non-Af 47 L BUN/Creatinine Ratio 26.9 H Glucose 109 H Calcium 8.7 Phosphorus 3.4 Magnesium 2.6 Total Bilirubin 0.40 Direct Bilirubin AST 14 L ALT 14 Alkaline Phosphatase 129 H Troponin I < 0.02 < 0.02 Total Protein 6.1 L Albumin 2.9 L Globulin 3.2 Albumin/Globulin Ratio 0.9 Triglycerides 94 Cholesterol 175 LDL Cholesterol 88 VLDL Cholesterol 19 HDL Cholesterol 68 TSH Medical Necessity - Tobacco Use Smoking Status: Never smoker Tobacco Use: Non-smoker Assessment/Plan #1 acute right frontal lobe ischemic stroke - patient was placed on Plavix, she will be maintained on a statin, continue PT and OT #2 hypertension continue present medications #3 osteoarthritis Code Visit Inpatient E&M: 16498 Subs Hosp L2
--- NOTE | 2017-06-19 19:53 | MRI_ITS ---
STUDY: MRI BRAIN WITHOUT CONTRAST REASON FOR EXAM: Female, 71 years old. Left-sided facial droop and left-sided and numbness TECHNIQUE: Standardized multiplanar fat and water weighted pulse sequences were obtained. COMPARISON: May 28, 2017 CT examination of the head FINDINGS: Acute cortical-based infarct in the right superior frontal lobe noted. No significant shift of midline structures. No associated hemorrhage. Bilateral basal ganglia mineralization. The basal cisterns are patent. The ventricular system appears unremarkable. Mild cerebral fine loss within closure changes. Chronic bilateral cerebellar small infarcts also noted. Few scattered foci T2/FLAIR hyperintense signal likely related with mild chronic small vessel disease in the periventricular and subcortical white matter IMPRESSION:Acute cortical-based infarct in the right superior frontal lobe noted. No significant shift of midline structures. No associated hemorrhage. Small bilateral cerebellar chronic infarcts. N.B. : The above information has been verbally conveyed by Jacobo Darby to Reed Sim , Referring Physician, on 06/19/2017 11:45:17 (ET). Electronically Signed: Jacobo Darby, at 11:12 EDT Tel , Service support , N.B. : The above information has been verbally conveyed by Jacobo Darby to Reed Sim , Referring Physician, on 06/19/2017 11:45:17 (ET). MRI/Brain without Contrast
--- NOTE | 2017-06-19 19:53 | MRI_ITS ---
STUDY: MRA OF THE HEAD WITHOUT CONTRAST REASON FOR EXAM: Female, 71 years old. Left facial droop and left hand numbness. Symptoms started yesterday morning. TECHNIQUE: 3-D [id number] (TOF) imaging was performed with MIPs. The study was performed unenhanced. COMPARISON: None. FINDINGS: Normal bilateral petrous carotid arteries. Normal right cavernous carotid artery with a normal supraclinoid bifurcation. Normal left cavernous carotid artery with a normal supraclinoid bifurcation. Normal right A1 segments of the anterior cerebral artery. Normal left A1 segments of the anterior cerebral artery. Normal intact anterior communicating artery (ACOM). Normal bilateral A2 segments of the anterior cerebral arteries. Normal right M1 and M2 segments of the middle cerebral arteries, with a normal M1 bifurcation. Normal left M1 and M2 segments of the middle cerebral arteries, with a normal M1 bifurcation. Normal right posterior communicating artery (PCOM). Normal left posterior communicating artery (PCOM). Normal bilateral vertebral arteries. Normal basilar artery with a normal basilar bifurcation. The visualized bilateral superior cerebellar (SCA) arteries are normal. Appears to be focal area of stenosis involving the right P1 segment. This appears to be hemodynamically significant. The left P1 segment is within normal limits. There are fewer visible left-sided P2 segments than they are on the right suggesting potential hemodynamically significant stenoses. The right-sided P2 segments are within normal limits. There is no demonstrated aneurysm of the [place] of [place]. There are mild involutional changes of the brain consistent with patient's age. MRI/MRA Head ONLY without Contrast IMPRESSION: 1. Focal area of stenosis involving the right P1 segment. 2. Apparent decreased flow within the left P2 segments possibly also related to stenosis and vasculopathy. Electronically Signed: Olga Baugh MD at 10:25 EDT , Service support ,
--- NOTE | 2017-06-19 19:53 | MRI_ITS ---
STUDY: MRA NECK WITHOUT CONTRAST REASON FOR EXAM: Female, 71 years old. Left-sided facial droop and left hand numbness with slurred speech TECHNIQUE: Source images were obtained, MIPs were performed. The study was performed unenhanced. COMPARISON: None. FINDINGS: RIGHT CAROTID ARTERIES: The origin of the great vessels are not well assessed on this exam. The visualized segments of the common carotid arteries are patent. Internal carotid arteries are not well assessed on this examination with extensive motion and lack of intravenous contrast. The visualized segments of the vertebral arteries are patent. The origin of the vertebral arteries are not included on this exam. IMPRESSION: Limited MR angiogram of the neck. Please consider MR angiogram with IV contrast or CT angiogram of the neck for better assessment Electronically Signed: Jacobo Daryb, at 12:37 EDT Tel , Service support , MRI/MRA Neck without Contrast
[2017-06-19] MEDS: Gabapentin 300 MG Capsule PO (21:52)
[2017-06-19] MEDS: traMADol 50 MG Tablet PO (21:52)
[2017-06-20] VITALS (10 sets, daily range): BP systolic 156–184; BP diastolic 86–97; PULSE 50–75; RESP 16–18; TEMP 36.4–36.6; O2SAT 95–97; BMI 37.2
[2017-06-20] MEDS: 0.9% Normal Saline 1,000 ML 100 ML IV (00:16)
[2017-06-20] MEDS: Budesonide Respules 0.5 MG/2 ML AMPUL.NEB. INHALATION (07:32)
[2017-06-20] MEDS: Clopidogrel Bisulfate 75 MG Tablet PO (08:23)
[2017-06-20] MEDS: Allopurinol 100 MG Tablet PO (08:23)
[2017-06-20] MEDS: Atorvastatin Calcium 80 MG Tablet PO (08:23)
[2017-06-20] MEDS: Gabapentin 100 MG Capsule PO (08:23)
[2017-06-20] MEDS: Carvedilol 12.5 MG Tablet PO (08:23)
[2017-06-20] MEDS: Pantoprazole Sodium 20 MG Tablet PO (08:23)
[2017-06-20] MEDS: Enoxaparin 30 MG/0.3 ML Syringe SC (08:24)
--- NOTE | 2017-06-20 11:51 | PCM.DC ---
- Discharge Diagnoses Current Active Problems: Current Active and Chronic Problems Breast CA (Acute) Ischemic cerebrovascular accident (CVA) (Acute) HTN (hypertension) (Chronic) Chronic pain syndrome (Acute) GERD (gastroesophageal reflux disease) (Acute) Osteoarthritis (Acute) Obesity (Acute) Asthma (Acute) Gout (Acute) Hyperuricemia (Acute) Dehydration (Acute) You will use the following diet at home:: No restrictions Your food should be the consistency of: Regular Your liquids should be the consistency of: Regular/Thin Discharge Activity: Return to Normal Activity Weight Bearing Status: Weight bearing as tolerated Allergies/Adverse Reactions: Allergies Gadolinium-MRI Contrast Medium [MRI] Allergy (Verified 06/18/17 23:02) Chest tightness ibandronate sodium [From Boniva] Allergy (Verified 03/29/14 13:04) Rash levofloxacin [From Levaquin] Allergy (Verified 03/29/14 13:04) Swelling Penicillins Allergy (Verified 03/29/14 12:48) Rash mannitol [From Reclast] Adverse Reaction (Verified 03/29/14 13:12) Pain in joints water for injection,sterile [From Reclast] Adverse Reaction (Verified 03/29/14 13:12) Pain in joints zoledronic acid [From Reclast] Adverse Reaction (Verified 03/29/14 13:12) Pain in joints LAMBERTO Allergy (Uncoded 12/20/14 15:26) Other ALL LAMBERTO'S NOVACAINE, MARCAINE, BUPIVACAINE Medications to take at Discharge Carvedilol [Coreg (Beta Philippe)] 12.5 mg PO BID 10/18/13 Gabapentin [Neurontin] 300 mg PO QHS 10/18/13 Tramadol HCl 50 mg PO TID PRN PRN 10/18/13 Allopurinol [Zyloprim] 100 mg PO DAILY 03/29/14 Potassium Chloride [Klor-Con M10] 10 meq PO DAILY 03/29/14 Mometasone Furoate [Asmanex 220 mcg Twisthaler] 2 puff INHALATION DAILY 12/20/14 Ranitidine HCl [Zantac 75] 75 mg PO DAILY 12/20/14 Acetaminophen 650 mg PO Q4H PRN PRN 06/18/17 Cyanocobalamin (Vitamin B-12) 100 mcg PO DAILY 06/18/17 Gabapentin [Neurontin] 100 mg PO BID 06/18/17 Hydrocortisone 2.5% Crm [Hytone] 1 applicatio TOPICAL DAILY PRN 06/18/17 Multivitamins,Ther W-Minerals [Multivitamin With Minerals] 1 tablet PO DAILY 06/18/17 Atorvastatin Calcium [Lipitor] 80 mg PO DAILY #30 tablet 06/20/17 Clopidogrel Bisulfate [Plavix] 75 mg PO DAILY #30 tablet 06/20/17 Valsartan/Hydrochlorothiazide [Diovan Hct 160-12.5 mg Tab] 1 each PO DAILY #30 tablet 06/20/17 The following prescriptions were given: Atorvastatin Calcium [Lipitor] 80 mg PO DAILY #30 tablet Clopidogrel Bisulfate [Plavix] 75 mg PO DAILY #30 tablet Valsartan/Hydrochlorothiazide [Diovan Hct 160-12.5 mg Tab] 1 each PO DAILY #30 tablet Primary Care Physician: Mirlande Khoury MD [Primary Care Provider] - Please follow up with your Primary Care Physician in: this week-call office to set up physical therapy and speech therapy Please Follow Up With: Greg Gayle MD When: in 3 weeks [phone]
--- NOTE | 2017-06-20 11:55 | DCINST_ITS ---
- Discharge Diagnoses Current Active Problems: Current Active and Chronic Problems Breast CA (Acute) Ischemic cerebrovascular accident (CVA) (Acute) HTN (hypertension) (Chronic) Chronic pain syndrome (Acute) GERD (gastroesophageal reflux disease) (Acute) Osteoarthritis (Acute) Obesity (Acute) Asthma (Acute) Gout (Acute) Hyperuricemia (Acute) Dehydration (Acute) You will use the following diet at home:: No restrictions Your food should be the consistency of: Regular Your liquids should be the consistency of: Regular/Thin Discharge Activity: Return to Normal Activity Weight Bearing Status: Weight bearing as tolerated Allergies/Adverse Reactions: Allergies Gadolinium-MRI Contrast Medium [MRI] Allergy (Verified 06/18/17 23:02) Chest tightness ibandronate sodium [From Boniva] Allergy (Verified 03/29/14 13:04) Rash levofloxacin [From Levaquin] Allergy (Verified 03/29/14 13:04) Swelling Penicillins Allergy (Verified 03/29/14 12:48) Rash mannitol [From Reclast] Adverse Reaction (Verified 03/29/14 13:12) Pain in joints water for injection,sterile [From Reclast] Adverse Reaction (Verified 03/29/14 13:12) Pain in joints zoledronic acid [From Reclast] Adverse Reaction (Verified 03/29/14 13:12) Pain in joints LAMBERTO Allergy (Uncoded 12/20/14 15:26) Other ALL LAMBERTO'S NOVACAINE, MARCAINE, BUPIVACAINE Medications to take at Discharge Carvedilol [Coreg (Beta Philippe)] 12.5 mg PO BID 10/18/13 Gabapentin [Neurontin] 300 mg PO QHS 10/18/13 Tramadol HCl 50 mg PO TID PRN PRN 10/18/13 Allopurinol [Zyloprim] 100 mg PO DAILY 03/29/14 Potassium Chloride [Klor-Con M10] 10 meq PO DAILY 03/29/14 Mometasone Furoate [Asmanex 220 mcg Twisthaler] 2 puff INHALATION DAILY Ranitidine HCl [Zantac 75] 75 mg PO DAILY 12/20/14 Acetaminophen 650 mg PO Q4H PRN PRN 06/18/17 Cyanocobalamin (Vitamin B-12) 100 mcg PO DAILY 06/18/17 Gabapentin [Neurontin] 100 mg PO BID 06/18/17 Hydrocortisone 2.5% Crm [Hytone] 1 applicatio TOPICAL DAILY PRN 06/18/17 Multivitamins,Ther W-Minerals [Multivitamin With Minerals] 1 tablet PO DAILY Atorvastatin Calcium [Lipitor] 80 mg PO DAILY #30 tablet 06/20/17 Clopidogrel Bisulfate [Plavix] 75 mg PO DAILY #30 tablet 06/20/17 Valsartan/Hydrochlorothiazide [Diovan Hct 160-12.5 mg Tab] 1 each PO DAILY #30 tablet 06/20/17 The following prescriptions were given: Atorvastatin Calcium [Lipitor] 80 mg PO DAILY #30 tablet Clopidogrel Bisulfate [Plavix] 75 mg PO DAILY #30 tablet Valsartan/Hydrochlorothiazide [Diovan Hct 160-12.5 mg Tab] 1 each PO DAILY #30 tablet Primary Care Physician: Mirlande Khoury MD [Primary Care Provider] - Please follow up with your Primary Care Physician in: this week-call office to set up physical therapy and speech therapy Please Follow Up With: Greg Gayle MD When: in 3 weeks [phone]
[2017-06-20] MEDS: hydroCHLOROthiazide 25 MG Tablet 12.5 MG PO (12:01)
--- NOTE | 2017-06-20 21:11 | PCM.DC.SUM ---
Discharge Date and Diagnosis Date of Admission: 06/18/17 Date of Discharge: 06/20/17 - Primary Discharge Diagnosis #1 acute ischemic right frontal lobe stroke-right MCA distribution #2 hypertension #3 osteoarthritis - Secondary Discharge Diagnosis Chronic Problems HTN (hypertension) (Chronic) Hospital Course and Treatment Operations: None Procedures: 2-D Echocardiogram Summary of Care Provided: The patient is a 71 year old F was directly admitted to [facility] on PCU due to complaints of left-sided weakness and slurred speech, she was evaluated at the emergency room at [facility] that day with these complaints and CAT scan did not show any evidence of acute stroke. Patient was directly admitted to PCU, she was maintained on aspirin, statin, and diagnostic testing was performed and she was evaluated by PT OT and neurology. MRI of the brain showed an acute right frontal lobe ischemic stroke in the right MCA distribution, patient was also seen by speech therapy due to dysarthria. Patient did well during her hospital stay, she was able to be discharged home without the need for long-term placement. Patient's blood pressure meds were adjusted at the time of discharge, she was to follow-up with her PCP to arrange for speech and physical therapy and follow-up with neurology as an outpatient. On 06/20/17, patient was seen and examined and felt to be in stable condition for discharge home Discharge Activity: Return to Normal Activity Weight Bearing Status: Weight bearing as tolerated Home Medications: Medications to take at Discharge Carvedilol [Coreg (Beta Philippe)] 12.5 mg PO BID 10/18/13 Gabapentin [Neurontin] 300 mg PO QHS 10/18/13 Tramadol HCl 50 mg PO TID PRN PRN 10/18/13 Allopurinol [Zyloprim] 100 mg PO DAILY 03/29/14 Potassium Chloride [Klor-Con M10] 10 meq PO DAILY 03/29/14 Mometasone Furoate [Asmanex 220 mcg Twisthaler] 2 puff INHALATION DAILY 12/20/14 Ranitidine HCl [Zantac 75] 75 mg PO DAILY 12/20/14 Acetaminophen 650 mg PO Q4H PRN PRN 06/18/17 Cyanocobalamin (Vitamin B-12) 100 mcg PO DAILY 06/18/17 Gabapentin [Neurontin] 100 mg PO BID 06/18/17 Hydrocortisone 2.5% Crm [Hytone] 1 applicatio TOPICAL DAILY PRN 06/18/17 Multivitamins,Ther W-Minerals [Multivitamin With Minerals] 1 tablet PO DAILY 06/18/17 Atorvastatin Calcium [Lipitor] 80 mg PO DAILY #30 tab 06/20/17 Clopidogrel Bisulfate [Plavix] 75 mg PO DAILY #30 tab 06/20/17 Valsartan/Hydrochlorothiazide [Diovan Hct 160-12.5 mg Tab] 1 ea PO DAILY #30 tab 06/20/17 Following Prescrptions Were Given to Patient: Atorvastatin Calcium [Lipitor] 80 mg PO DAILY #30 tab Clopidogrel Bisulfate [Plavix] 75 mg PO DAILY #30 tab Valsartan/Hydrochlorothiazide [Diovan Hct 160-12.5 mg Tab] 1 ea PO DAILY #30 tab Primary Care Physician: Mirlande Khoury MD [Primary Care Provider] - Please follow up with your Primary Care Physician in: this week-call office to set up physical therapy and speech therapy Please Follow Up With: Greg Gayel MD When: in 3 weeks [phone] Disposition: Home Minutes spent on discharge:: 35 Patient Condition:: Stable Medical Necessity - Tobacco Use Smoking Status: Never smoker Tobacco Use: Non-smoker Meaningful Use Info Meaningful Use Diagnoses (Choose all that apply): Ischemic CVA - CVA Therapy Assessed for PT,OT and/or ST?: Yes - Ischemic Stroke Antithrombotic order at d/c?: Yes Dx of Atrial fib/flutter?: No Anticoagulant at discharge?: No Reason anticoagulant not ordered: Treatment not Indicated Statins at discharge?: Yes Primary Dx Acute Ischemic CVA?: Yes IV tPA ordered during stay?: No Reason IV t-PA not ordered: Treatment not Indicated Code Visit Inpatient E&M: 55017 Disch Hosp
--- NOTE | 2017-06-20 21:16 | DS.PCM_ITS ---
Discharge Date and Diagnosis Date of Admission: 06/18/17 Date of Discharge: 06/20/17 - Primary Discharge Diagnosis #1 acute ischemic right frontal lobe stroke-right MCA distribution #2 hypertension #3 osteoarthritis - Secondary Discharge Diagnosis Chronic Problems HTN (hypertension) (Chronic) Hospital Course and Treatment Operations: None Procedures: 2-D Echocardiogram Summary of Care Provided: The patient is a 71 year old F was directly admitted to [facility] on PCU due to complaints of left-sided weakness and slurred speech, she was evaluated at the emergency room at [facility] that day with these complaints and CAT scan did not show any evidence of acute stroke. Patient was directly admitted to PCU, she was maintained on aspirin, statin, and diagnostic testing was performed and she was evaluated by PT OT and neurology. MRI of the brain showed an acute right frontal lobe ischemic stroke in the right MCA distribution, patient was also seen by speech therapy due to dysarthria. Patient did well during her hospital stay, she was able to be discharged home without the need for fci placement. Patient's blood pressure meds were adjusted at the time of discharge, she was to follow-up with her PCP to arrange for speech and physical therapy and follow-up with neurology as an outpatient. On 06/20/17, patient was seen and examined and felt to be in stable condition for discharge home Discharge Activity: Return to Normal Activity Weight Bearing Status: Weight bearing as tolerated Home Medications: Medications to take at Discharge Carvedilol [Coreg (Beta Philippe)] 12.5 mg PO BID 10/18/13 Gabapentin [Neurontin] 300 mg PO QHS 10/18/13 Tramadol HCl 50 mg PO TID PRN PRN 10/18/13 Allopurinol [Zyloprim] 100 mg PO DAILY 03/29/14 Potassium Chloride [Klor-Con M10] 10 meq PO DAILY 03/29/14 Mometasone Furoate [Asmanex 220 mcg Twisthaler] 2 puff INHALATION DAILY Ranitidine HCl [Zantac 75] 75 mg PO DAILY 12/20/14 Acetaminophen 650 mg PO Q4H PRN PRN 06/18/17 Cyanocobalamin (Vitamin B-12) 100 mcg PO DAILY 06/18/17 Gabapentin [Neurontin] 100 mg PO BID 06/18/17 Hydrocortisone 2.5% Crm [Hytone] 1 applicatio TOPICAL DAILY PRN 06/18/17 Multivitamins,Ther W-Minerals [Multivitamin With Minerals] 1 tablet PO DAILY Atorvastatin Calcium [Lipitor] 80 mg PO DAILY #30 tab 06/20/17 Clopidogrel Bisulfate [Plavix] 75 mg PO DAILY #30 tab 06/20/17 Valsartan/Hydrochlorothiazide [Diovan Hct 160-12.5 mg Tab] 1 ea PO DAILY #30 tab 06/20/17 Following Prescrptions Were Given to Patient: Atorvastatin Calcium [Lipitor] 80 mg PO DAILY #30 tab Clopidogrel Bisulfate [Plavix] 75 mg PO DAILY #30 tab Valsartan/Hydrochlorothiazide [Diovan Hct 160-12.5 mg Tab] 1 ea PO DAILY #30 tab Primary Care Physician: Mirlande Khoury MD [Primary Care Provider] - Please follow up with your Primary Care Physician in: this week-call office to set up physical therapy and speech therapy Please Follow Up With: Greg Gayle MD When: in 3 weeks [phone] Disposition: Home Minutes spent on discharge:: 35 Patient Condition:: Stable Medical Necessity - Tobacco Use Smoking Status: Never smoker Tobacco Use: Non-smoker Meaningful Use Info Meaningful Use Diagnoses (Choose all that apply): Ischemic CVA - CVA Therapy Assessed for PT,OT and/or ST?: Yes - Ischemic Stroke Antithrombotic order at d/c?: Yes Dx of Atrial fib/flutter?: No Anticoagulant at discharge?: No Reason anticoagulant not ordered: Treatment not Indicated Statins at discharge?: Yes Primary Dx Acute Ischemic CVA?: Yes IV tPA ordered during stay?: No Reason IV t-PA not ordered: Treatment not Indicated Code Visit Inpatient E&M: 46373 Disch Hosp
== END 2017-06-20 14:36 | disposition home or self-care (01) | DRG 65 ==
PROVIDERS: Internal Medicine; Admitting Provider Internal Medicine; Family Provider Family Medicine; PCP Family Medicine; Visit Provider Internal Medicine
DX: I63.511 Cerebral infarction due to unspecified occlusion or stenosis of right middle cerebral artery (principal); G81.94 Hemiplegia, unspecified affecting left nondominant side; R47.81 Slurred speech; I11.0 Hypertensive heart disease with heart failure; I50.9 Heart failure, unspecified; M19.90 Unspecified osteoarthritis, unspecified site; R47.1 Dysarthria and anarthria; M10.9 Gout, unspecified; K21.9 Gastro-esophageal reflux disease without esophagitis; J45.909 Unspecified asthma, uncomplicated; G89.4 Chronic pain syndrome; Z85.3 Personal history of malignant neoplasm of breast; Z92.3 Personal history of irradiation; R29.810 Facial weakness; E66.9 Obesity, unspecified; Z68.37 Body mass index [BMI] 37.0-37.9, adult; Z71.3 Dietary counseling and surveillance; Z87.891 Personal history of nicotine dependence; E86.0 Dehydration; M51.16 Intervertebral disc disorders with radiculopathy, lumbar region
CPT/HCPCS: 36415; 70544; 70547; 70551; 71046; 80053; 80061; 80076; 83735; 84100; 84443; 84484; 85027; 92507; 92523; 93005; 93306; 94640; 97113; 97161; 97166; J7030; J7040; A4216

== ENCOUNTER 2017-06-28 10:00 | Outpatient (RCR) | payer MEDICARE, OTHER, SELFPAY ==
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
--- NOTE | 2017-06-28 13:13 | HP.PTDCSUM_ITS ---
HP - PT D/C Summary It has been my pleasure to treat CIARA HODGES under orders from Daniel Guzman MD, for the diagnosis of LUMBAR DDD for a total of 5 visit(s). Discharge Date: Please see the following information for a summary of their discharge status. - Subjective Subjective: PATIENT ARRIVED LATE. PATIENT REPORTS SHE DID HAVE A STROKE AND IS IN THE PROCESS OF GETTING PT AND SPEECH THERAPY SET UP FOR THAT. SHE REPORTS THE WATER PT WAS REALLY HEALPING HER BACK BEFORE SHE HAD THE STROKE AND IT IS STILL BETTER. STATES SHE KNOWS HER POOL ROUTINE AND PLANS TO START IT ON HER OWN SOON POSSIBLE. SHE IS PLANNING TO GET A MEMBERSHIP HERE AT [id number]. PATIENT REPORTS HER BACK AND RIGHT LE SX'S COME AND GO AND THE RIGHT LE SX'S ARE MORE LOCALIZED TO THE RIGHT KNEE NOW NOT THE WHOLE LEG. - Pain Lower back Pain Intensity (Out of 10): 0 - Overall Improvement % Improvement: 75 - Objective Objective/Function: INDEP GAIT INTO PT WITH CANE. SHE DOES ADMIT THAT SHE DOESN 'T USE THE CANE ALL THE TIME. PATIENT HAS DECREASED CADANCE, AND FAIR DYNAMIC BALANCE WITH THE CANE. POOR DYNAMIC BALANCE WITHOUT CANE. HER STATIC STANDING BALANCE IS FAIR MINUS. SHE IS UNABLE TO SLS ON EITHER LEG WITHOUT UE ASSIST AND APPEARS TO STILL BE A FALL RISK. RECOMMENDED USE OF CANE AT ALL TIMES FOR SAFETY AGAIN. Motor deficit: AUGUSTO LE WEAKNESS: LE STRENGTH IS GROSSLY TO 4- TO 4/5 WITH MMT'ING TODAY. SHE REPORTS THE STROKE DID NOT EFFECT HER LEGS (BUT IT DID EFFECT HER LUE AND SPEECH). Sensory deficit: A SMALL AREA LEFT DISTAL KNEE. ROM deficit: WFL. Dural Signs: NEGATIVE AUGUSTO LE'S. Lumbar mvmt loss: flex - NIL. ext - MOD. R SG - MIN. L SG - MOD. Core strength: POOR BUT PATIENT IS TOLERATING PRE IN THE POOL AND IS INDEP WITH A POOL PROGRAM. LUMBAR OSWESTRY HAS IMPROVED FROM 28 TO 18. - Goals Goal 1:: DECREASE C/O BACK AND AUGUSTO LE SX'S. Goal Progress: Goal Met Goal 2:: IMPROVE PERSONAL CARE, LIFITNG, WALKING, SITTING, STANDING, SLEEP, SOCIAL LIFE, TRAVEL AND HOMEMAKING FUNCTION Goal Progress: Goal Met Goal 3:: INSTRUCT IN PROPHYLAXIS Goal Progress: Goal Met Goal 4:: INDEP AND SAFE GAIT ON ALL SURFACES WITH LEAST ASSISTIVE DEVICE - Plan Plan: D/C TO [facility] POOL PROGRAM. PATIENT IS AGREEABLE. - D/C Information If there are questions or concerns regarding this patient's physical therapy, please feel free to call me at [phone]. Thank you for the referral of this patient. Sincerely, Pooja Yoon
== END 2017-06-28 19:00 | disposition home or self-care (01) ==
LOC: PT 10:00
PROVIDERS: Family Provider Family Medicine; PCP Family Medicine; Visit Provider Anesthesiology Pain Medicine
DX: M51.36 Other intervertebral disc degeneration, lumbar region (principal); M54.16 Radiculopathy, lumbar region
CPT/HCPCS: 97113; 97162; 97530; G8978

== ENCOUNTER 2017-09-03 10:30 | Outpatient (RCR) | payer MEDICARE, OTHER, SELFPAY ==
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
--- NOTE | 2017-07-19 15:18 | HP.SP.AD_ITS ---
History - History Date of Eval: 07/19/17 Medical Diagnosis (from RX): CVA Previous speech therapy: Yes Results: Inpatient x1 session. 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 Right Hearing Abillity: Normal Left Hearing Abillity: Normal Patients Living Arrangements: Friend Patient Allergies - Allergies Allergies Gadolinium-MRI Contrast Medium [MRI] Allergy (Verified 06/18/17 23:02) Chest tightness ibandronate sodium [From Boniva] Allergy (Verified 03/29/14 13:04) Rash levofloxacin [From Levaquin] Allergy (Verified 03/29/14 13:04) Swelling Penicillins Allergy (Verified 03/29/14 12:48) Rash mannitol [From Reclast] Adverse Reaction (Verified 03/29/14 13:12) Pain in joints water for injection,sterile [From Reclast] Adverse Reaction (Verified 03/29/14 13:12) Pain in joints zoledronic acid [From Reclast] Adverse Reaction (Verified 03/29/14 13:12) Pain in joints LAMBERTO Allergy (Uncoded 12/20/14 15:26) Other ALL LAMBERTO'S NOVACAINE, MARCAINE, BUPIVACAINE Subjective Oral Motor - Subjective Patient Reports: Slurred Speech Dentures ill fitting: No - Comments Comments: Patient stated that it is more difficult in the am to be understood. Objective Oral Motor - Oral Status Dentition: Upper Dentures - Labial Impairment: Mild Observation at Rest: Left Droop Closure: WNL Pucker: WNL Retraction: Mild Involuntary Movement noted: No - Lingual Impairment: WNL Protrusion: WNL Retraction: WNL Lateralization: WNL Involuntary Movement: No - Jaw Impairment: WNL Opening: WNL Closing: WNL - Respiratory Status Respiratory Status: Room Air CLQT - CLQT CLQT Administered: Yes CLQT: Cognitive Linguistic Quick Test (CLQT) is a criterion - referenced assessment designed for adults between the ages of 18 and 89 with known or suspected neurological dysfuntions. The CLQT is to assess strength and weaknesses in five cognitive domains. Severity ratings are within normal limits , mild, moderate, severe deficits. The subtests are as follows: Date: 07/19/17 - Memory Memory: WNL - CLQT Comments Comments Patient reported that she has not missed any appointments or medications. She reported that she feels her memory is age related as she noted some mild deficits prior to CVA. Scoring was within normal limits. Objective Dysarthira/Motor - Speech Intelligibility Phonemes: WNL Single Words: WNL Phrases: WNL Sentences: WNL Conversation: WFL - Volume Volume: WNL - Consistency w/Multiple Repetitions Phrases: WNL - Observation Observation of Apraxia of Speech: No Oral Groping for Placement: No Inconsistent Errors: No - Awareness/Strategy Use Uses strategies effectively and consistently to improve intelligibility or listener's understanding of message: Yes Plan - Plan Plan: No therapy necessary at this time. - Recommendations Treatment Warranted: No Education - Patient has Indicated that the Following Identified Educational Needs: None The Patient has indicated that they have no educational or learning abilities that may effect their care.: Yes - Patient Instruction Patient Education: Diagnosis, Home Exercise Program Person Taught: Patient Response to teaching: Verbalize understanding
--- NOTE | 2017-09-03 11:29 | HP.PTREVAL ---
Mirlande Khoury, It has been my pleasure to treat CIARA HODGES over the last 18 visits for ISCHEMIC STROKE OF FRONTAL LOBE, SLURRED SPEECH AND CHF.. Please see the progress note below for an update on the physical therapy plan of care! Subjective: PATIENT REPORTS HER BALANCE IS GETTING MUCH BETTER. REPORTS SHE IS ONLY USING THE CANE 10 TO 20% OF THE TIME NOW. SHE REPORTS THAT OVER THE PAST MONTH HER PAIN HAS CONTINUED TO IMPROVE IN HER FOOT AND LOWER BACK. PATIENT REPORTS THE CANE HELPS HER KNEE AND FOOT PAIN AND HELPS HER WHEN SHE IS WOBBLY LIKE IN THE MORNINGS BUT SHE DOESN'T USE IT MORE BECAUSE SHE DOESN'T WANT TO DEPEND ON IT. PATIENT REPORTS HER GOAL IS TO CONTINUE WATER EX INDEP'LY HERE AT [facility] WHEN WE RECOMMEND IT. EXCITED TO REPORT THAT SHE CAN NOW WALK ACROSS THE POOL WITHOUT HANGING ON TO THE SIDE. Objective/Function: PATIENT HAS PATIENT IS MAKING SLOW PROGRESS IN TERMS OF BECOMING MORE INDEP WITH PROPER POSTURE CONTROL WITH EX IN THE WATER. NO SIGNIFICANT CHANGE IN LUMBAR OSWESTRY SCORE SINCE LAST RE-CHECK. SHE IS STILL TOLERATING PRE IN THE WATER. UPON EXAM TODAY: PATIENT AMBULATES INDEP'LY INTO PT WITH SLOW CADANCE WITHOUT ANY ASSISTIVE DEVICES AND NO LOSS OF BALANCE. DECREASED CADANCE, AND FAIR DYNAMIC BALANCE WITHOUT AD. NO SOB NOTED AFTER GAIT X APPROX 300 FEET IN TO PT TODAY. HER STATIC STANDING BALANCE IS FAIR PLUS. SHE IS UNABLE TO SLS ON EITHER LEG WITHOUT UE ASSIST FOR MORE THAN A FEW SECONDS AND WEIGHT BEARING ON RIGHT LE DID NOT INCREASE FOOT PAIN TODAY. Motor deficit: AUGUSTO LE STRENGTH HAS IMPROVED: LEFT HIP 4/5, KNEE EXT 5/5, KNEE FLEX 5/5, ANKLE DORSIFLEXION 5/5. RIGHT HIP 4-/5, KNEE EXT 4/5, KNEE FLEX 4/4, ANKLE DORSIFLEX 5/5. Sensory deficit: AUGUSTO LE LIGHT TOUCH SENSATION IS INTACT AND SYMMETRICAL WITH TESTING TODAY. ROM deficit: WFL. Dural Signs: NEGATIVE AUGUSTO LE'S. TRANSFER SIT TO STAND: INDEP WITHOUT UE ASSIST BUT STILL DIFFICULT AND NO LOSS OF BALANCE. Lumbar mvmt loss: flex - NIL. ext - MOD. R SG - MIN. L SG - MOD. PATIENT DENIES INCREASED PAIN WITH LUMBAR ROM TESTING TODAY. *RECOMMENDED USE OF CANE AT ALL TIMES TO PATIENT AGAIN FOR SAFETY* Plan Plan: TREATMENT WILL CONTINUE/PLAN OF CARE TO CONTINUE THIS TREATMENT IS MEDICALLY NECESSARY BECAUSE PATIENT HAS LBP, DECREASED LUMBAR ROM, DECREASED CORE STRENGTH, AND DECREASED BALANCE THAT IS CONTINUING TO IMPROVE WITH PHYSICAL THERAPY. SHE ALSO STILL HAS DECREASED STANDING AND WALKING FUNCTION BUT SHE IS MAKING SLOW PROGRESS TOWARD ALL PT GOALS. RECOMMEND CONTINUED AQUATIC THERAPY DECREASING TO ONCE A WEEK WHILE PATIENT STARTS INDEP EX 2X'S A MONTH WITH MEMBERSHIP TO CONTINUE TO CUE FOR POSTURE CORRECTION AND PROGRSS THER EX TOLERATED. PATIENT IS AGREEABLE WITH THIS POC. Goals Goal 1:: INDEP AND SAFE GAIT ON ALL SURFACES WITH LEAST ASSISTIVE DEVICE Goal Time Frame: 4-6 Weeks Goal Progress: Progressing Goal 2:: DECREASE C/O LOW BACK AND RIGHT LE SX'S. Goal Time Frame: 4-6 Weeks Goal Progress: Progressing Goal 3:: RETURN TO PRIOR LEVEL OF FUNCTION BEFORE THE STROKE Goal Time Frame: 4-6 Weeks Goal 4:: INDEP WATER EX PROGRAM. Goal Time Frame: 4-6 Weeks Goal Progress: Progressing Anticipated Interventions Patient/Client Instruction: Educate patient on: Condition, Plan of Care, Risk Factors, Benefits of Fitness Program For the Purpose of:: To improve self management Therapeutic Exercise to Include: Strength training, Endurance training, Balance training, Body mechanics, Postural training, Flexibilty training, Gait and locomotor training, In an aquatic setting, Dynamic Lumbar Stabilization For the Purpose of:: To improve ability of physical actions for home/community/work/leisure, To improve gait and locomotor functions Please do not hesitate to contact me at [phone] by phone or if you have questions or concerns regarding this new plan of care! Sincerely, Pooja Yoon
--- NOTE | 2017-12-02 13:20 | HP.PTDCNRP_ITS ---
HP - Discharge Summary (1) - Patient Information CIARA HODGES was seen in my office for initial evaluation on 07/08/17. The following Plan of Care was established for this patient: Initial Frequency: 2-3x /Week Initial Duration: 4-6 Weeks - Anticipated Interventions Patient/Client Instruction: Educate patient on: Condition, Plan of Care, Risk Factors, Benefits of Fitness Program For the Purpose of:: To improve self management Therapeutic Exercise to Include: Strength training, Endurance training, Balance training, Body mechanics, Postural training, Flexibilty training, Gait and l ocomotor training, In an aquatic setting, Dynamic Lumbar Stabilization For the Purpose of:: To improve ability of physical actions for home/community/work/leisure, To improve gait and locomotor functions This patient was last seen in our office 09/03/17. Pertinent comments regarding their Physical therapy will appear below: This patient has not returned to Physical Therapy and is appropriate to return to MD for further follow-up as needed. At this point I will be discontinuing this patient from physical therapy. I would be happy to see this patient again in the future if found appropriate by the physician. Thank you! Pooja Yoon
== END 2017-09-03 19:00 | disposition home or self-care (01) ==
LOC: PT 10:30
PROVIDERS: Family Provider Family Medicine; PCP Family Medicine; Visit Provider Family Medicine
DX: I50.9 Heart failure, unspecified (principal); R29.898 Other symptoms and signs involving the musculoskeletal system; R47.81 Slurred speech; Z86.73 Personal history of transient ischemic attack (TIA), and cerebral infarction without residual deficits
CPT/HCPCS: 92522; 97113; 97162; 97164

== ENCOUNTER → 2018-01-18 11:27 | Outpatient (CLI) | payer MEDICARE, OTHER, SELFPAY ==
[2018-01-18 13:11] LABS: BNP,B-Type NATRIURETIC PEPTIDE 63.6 pg/mL (0-100)
[2018-01-18 13:19] LABS: AST(SGOT) 22 U/L (15-37); Alanine Aminotransfer ALT/SGPT 24 U/L (13-56); Alkaline Phosphatase 190 U/L (45-117); Anion Gap 8 (5-15); BUN 16 mg/dL (7-18); BUN/Creat Ratio 19.3 RATIO (10-20); Bilirubin, Direct 0.13 mg/dL (0.00-0.30); Calcium,Total 9.2 mg/dL (8.5-10.1); Chloride 107 mmol/L (98-107); Cholesterol 108 mg/dL (200); Creatinine, Serum 0.83 mg/dL (0.55-1.02); EST Glomerular Filtration Rate 71 mL/min (>60); Est Glom Filt Rate - Afr Amer 86 mL/min (>60); Globulin 3.6 g/dL (2.2-4.2); Glucose 92 mg/dL (74-106); High Density Lipoprotein 55 mg/dL; Potassium 4.1 mmol/L (3.5-5.1); Protein, Total 6.6 g/dL (6.4-8.2); Sodium Level 142 mmol/L (136-145); Triglycerides 87 mg/dL; Very Low Density Lipoprotein 17 mg/dL (5-40)
== END ==
PROVIDERS: Family Provider Family Medicine; PCP Family Medicine; Referring Provider Nurse Practitioner Family; Visit Provider Nurse Practitioner Family
DX: I11.0 Hypertensive heart disease with heart failure (principal); I50.32 Chronic diastolic (congestive) heart failure; R06.09 Other forms of dyspnea; E78.00 Pure hypercholesterolemia, unspecified; R07.9 Chest pain, unspecified
CPT/HCPCS: 36415; 80048; 80061; 80076; 83880

== ENCOUNTER → 2018-01-31 06:38 | Outpatient (CLI) | payer MEDICARE, OTHER, SELFPAY ==
--- NOTE | 2018-01-31 14:54 | STRESSREP_ITS ---
Stress Test Report Pharmacologic myocardial perfusion stress test. 72-year-old lady with a history of heart failure and right bundle branch block. Stress protocol: Resting EKG demonstrates normal sinus rhythm with rate of 58 bpm right bundle branch block is noted resting blood pressure 130/82 mmHg. 0.4 mg of regadenoson was infused per usual protocol followed by rapid intravenous saline flush injection continuous EKG monitoring was performed. The maximum heart rate attained was 80 bpm which was 54% of maximum predicted heart rate. At rest there were no ST or T wave changes noted suggest abnormal flow reserve at peak infusion no ST or T wave changes were noted to suggest abnormal flow reserve. The resting blood pressure 130/82 with a final blood pressure 118/64. Myocardial perfusion protocol. 11.9 mCi of technetium 99m sestamibi was injected at rest. 0.4 mg of regadenoson was infused per usual protocol. At peak infusion 34.6 mCi of techn etium 99m sestamibi was injected stress images were obtained stress and rest images were reconstructed and compared in the short axis vertical long and horizontal long axis. Gated images were also obtained. Perfusion SPECT analysis: Review of the stress images demonstrate normal uptake of tracer noted in all areas of the myocardium. The resting images similarly demonstrate normal uptake of tracer noted in all areas of the myocardium. No reversibility is noted to suggest ischemia. Gated SPECT analysis: The gated ejection fraction is noted to be 76%. Conclusion: Normal pharmacologic myocardial perfusion stress test.
== END ==
PROVIDERS: Family Provider Family Medicine; PCP Family Medicine; Referring Provider Nurse Practitioner Family; Visit Provider Nurse Practitioner Family
DX: R06.09 Other forms of dyspnea (principal); I11.0 Hypertensive heart disease with heart failure; I50.32 Chronic diastolic (congestive) heart failure; E78.00 Pure hypercholesterolemia, unspecified; R07.9 Chest pain, unspecified
CPT/HCPCS: 78452; 93017; A9500; A4216; J2785

== ENCOUNTER 2018-03-07 07:25 | Observation (INO) | payer MEDICARE, OTHER, SELFPAY ==
[2018-01-18 10:31] VITALS: BMI 36.2
[2018-02-22 11:19] VITALS: PULSE 60; RESP 16; TEMP 36.7; O2SAT 96; BMI 35.3
--- NOTE | 2018-02-22 11:51 | SDCEKG_ITS ---
Test Reason : Blood Pressure : / mmHG Vent. Rate : 055 BPM Atrial Rate : 055 BPM P-R Int : 232 ms QRS Dur : 128 ms QT Int : 458 ms P-R-T Axes : 047 037 016 degrees QTc Int : 438 ms Sinus bradycardia with 1st degree A-V block Right bundle branch block Abnormal ECG Confirmed by ENA MORRISON, CHRIS ([id number]), clinical editor KAVYA HERRERA ([id number]) on 02/25/2018 1:40:15 PM Referred By: Bryce Pierson Confirmed By:CHRIS SUTHERLAND MD
[2018-02-22 13:08] LABS: Absolute Lymphocyte Count 1.28 X10^3/ul (0.83-4.51); Absolute Neutrophil Count 3.7 X10^3/uL (2.0-7.7); Basophil# 0.05 X10^3/uL; Basophil% 0.8 % (0-1); Eosinophil# 0.71 X10^3/uL; Eosinophils% 11.2 % (0-5); Hematocrit 40.8 % (37-47); Hemoglobin 13.1 g/dl (12.0-15.0); Lymphocyte # 1.28 X10^3/ul (4.0); Lymphocyte % 20.2 % (19-41); Mean Corp Hgb Conc 32.1 g/gl (32-36); Mean Corpuscular Hgb 29.5 pg (27.0-32.0); Mean Corpuscular Volume 91.9 fL (81-99); Mean Platelet Vol. 12.5 fl (6.2-12.0); Monocyte# 0.63 X10^3/uL; Neutrophil # 3.65 X10^3/uL (2.7-7.7); Neutrophil % 57.6 % (47-70); POSITIVE COUNT NO; POSITIVE DIFFERENTIAL NO; POSITIVE MORPHOLOGY NO; Platelet Count 191 K/mm3 (150-450); RBC Distribution Width CV 14.2 % (11.6-14.6); RBC Distribution Width SD 46.3 fl (35.1-43.9); Red Blood Count 4.44 M/mm3 (4.2-5.4); White Blood Count 6.3 K/mm3 (4.4-11.0)
[2018-02-22 13:46] LABS: Anion Gap 8 (5-15); BUN 17 mg/dL (7-18); BUN/Creat Ratio 18.1 RATIO (10-20); Calcium,Total 9.5 mg/dL (8.5-10.1); Chloride 105 mmol/L (98-107); Creatinine, Serum 0.94 mg/dL (0.55-1.02); EST Glomerular Filtration Rate 62 mL/min (>60); Est Glom Filt Rate - Afr Amer 75 mL/min (>60); Estimated Creatinine Clearance 41.53 ml/min; Glucose 85 mg/dL (74-106); Potassium 3.6 mmol/L (3.5-5.1); Sodium Level 144 mmol/L (136-145)
--- NOTE | 2018-03-04 13:43 | CASEMGMT ---
Attempted to contact patient to discuss discharge needs after upcoming surgery, no answer on cell phone. Voicemail left with call back information. Zaida Miller LPN Clinical Support
[2018-03-07] VITALS (12 sets, daily range): BP systolic 97–154; BP diastolic 61–80; PULSE 54–66; RESP 16–18; TEMP 35.9–36.7; O2SAT 86–99; BMI 35.3
[2018-03-07] MEDS: oxyCODONE HCl Cr 10 MG Tablet PO (06:05)
[2018-03-07] MEDS: Acetaminophen 500 MG Tablet 1000 MG PO ×3 (06:05→23:13)
[2018-03-07] MEDS: Lactated Ringers 1,000 ML 999 ML IV (06:41)
--- NOTE | 2018-03-07 07:15 | KNEE_PTH ---
PATIENT: CIARA HODGES I LOC: MS3 U#:[id number] AGE/SX: 72/F ROOM: MS305 RE03/07/[address]: Dr. Bryce Pierson DO : 1945 BED: 1 DIS: 03/08/2018 SPEC #: [id number] RECD: 03/07/18 10:30 STATUS: REZA RELynn #: [id number] ABELARDO: 03/07/18 07:[address]: Bryce Pierson DEPT: SURGICAL PATHOLOGY RECD BY: Joseluis Blanco ENTERED: 03/07/18 11:57 SP TYPE: TOTAL KNEE OTHR DR: Zaida Berger, CALIBRATION TESTER-C Tissues: Knee, NOS Procedures: Decalcification bone/plaque Surgery Specimen Level IV HEADER OPERATION: Total knee replacement PRE-OP DIAGNOSIS: Osteoarthritis right knee TISSUE SUBMITTED: Right knee bone and tissue MICROSCOPIC DIAGNOSIS Bone and soft tissue, right knee, total knee replacement: Pieces of bone with degenerative osteoarthritic changes. Fragments of fibroadipose and fibroconnective tissue. JACKELYN:damaris 03/11/18 MICROSCOPIC DESCRIPTION Slides are reviewed. GROSS DESCRIPTION Received is one container designated right knee bone and tissue. The specimen consists of multiple fragments of reese-yellow bone measuring in aggregate 16 x 11 x 1.5 cm. Also in the specimen container are multiple fragments of yellow-white soft tissue measuring in aggregate 2 x 1.5 x 0.6 cm. A number of bony fragments contain articular surfaces consistent with tibial plateau and femoral condyle and displaying prominent osteophyte formation, eburnation, and bone erosion. Burring Wheel Operator sections are submitted in two cassettes as follows: 1 - soft tissue, 2 - bone after decalcification. / AM:damaris 03/07/18 TC:5 [facility]: [id number], [id number]
--- NOTE | 2018-03-07 08:29 | PCM.IMDPSTOP ---
Immediate Post-Op Note Date of Procedure: 03/07/18 Primary Surgeon/Physician: Bryce Pierson DO retail coverage merchandiser: Arnie Tolentino Pre-Operative Diagnosis: OA right knee Post-Operative Diagnosis: same Surgery/Procedure Performed:: Right TKR Description of Surgical Findings:: see op note Estimated Blood Loss: 50 cc Specimen's removed: bone ASA Class: ASA2 Mod Systematic Disease - Admit VTE Documentation VTE Present on Admission: No VTE Mechan Device Prophylaxis: SCD's, Thigh High CORY Hose VTE Pharm Prophylaxis ordered?: Yes
--- NOTE | 2018-03-07 08:32 | OP.PN_ITS ---
Immediate Post-Op Note Date of Procedure: 03/07/18 Primary Surgeon/Physician: Bryce Pierson DO freight handler: Arnie Tolentino Pre-Operative Diagnosis: OA right knee Post-Operative Diagnosis: same Surgery/Procedure Performed:: Right TKR Description of Surgical Findings:: see op note Estimated Blood Loss: 50 cc Specimen's removed: bone ASA Class: ASA2 Mod Systematic Disease - Admit VTE Documentation VTE Present on Admission: No VTE Mechan Device Prophylaxis: SCD's, Thigh High CORY Hose VTE Pharm Prophylaxis ordered?: Yes
--- NOTE | 2018-03-07 08:47 | PCM.OP.BLANK ---
Operative Report Date of Procedure: 03/07/18 Primary Surgeon/Physician: Bryce Pierson rn outpatient surgery: Hitesh Tolentino PA-C rn outpatient surgery: Pre-Operative Diagnosis: OA right knee Post-Operative Diagnosis: same Surgery/Procedure Performed: Right TKR Specimen's Removed: bone Type of Anesthesia: general after failed spinal ASA Class: 2 Implants: [Js Triathlon size 4 PS femur, size 4 tibia, 11 mm polyethylene, 32 mm patella (all components cemented) ] Indications: Patient has severe end-stage osteoarthritis diagnosed via x-rays in the knee. They have failed all forms of conservative measures including activity modification, injections, anti-inflammatories, use of assistive device. The patient has pain that affects on a daily basis and prevents him from doing things that they enjoyed. They have elected to undergo the above procedure. The risks of the procedure were discussed at length and their questions were answered. Procedure Description: The patient was greeted in the preoperative area. The [right knee ] knee was then marked with a surgical marker. Patient was then taken to or Suite 2. They were administered a dose of antibiotics as well as tranexamic acid. Once adequate anesthesia was obtained and airway was secured to placed in supine position on the operating room table. A well-padded tourniquet was placed on the affected extremity. Leg was then prepped and draped in the usual sterile fashion from the knee down. Ioban was used on the skin. Surgical timeout was then performed and confirmed with all present. Six-inch Esmarch was used to examine the limb and tourniquet was then inflated to 250 mmHg. A longitudinal incision was then planned and carried out in the anterior aspect of the knee. The dissection was then carried the length of the incision the extensor mechanism was identified. Standard medial parapatellar arthrotomy was then performed revealing severe eburnation of bone and periarticular osteophytes. There is complete loss of cartilage especially in the medial compartment with varus alignment. Anterior fat pad was removed for visualization purposes and the anterior medial aspect of the tibia was skeletonized for exposure to the knee. The knee was then flexed the patella was inverted. Opening reamer was then used in the femur approximately 1 cm anterior to the attachment of the PCL. The intramedullary valgus wand was then placed in the femur set at 5? of valgus. The distal femoral cutting jig was then applied to the femur with anticipated resection of approximately 8 mm. This was then made with a oscillating saw. The sizing guide was then placed referencing off the posterior condyles and also reference off the epicondylar axis. This was measured and the appropriate size 4-in-1 cutting jig was then applied to the distal femur. Anterior posterior cuts were made followed by the anterior and posterior chamfer cuts. These bony pieces and fragments were removed and placed on the back table. Posterior retractor was then utilized and the tibia was subluxed anteriorly. Intramedullary tibial alignment jig was then applied to the tibia referencing off the medial one third of the tibial tubercle the anterior tibial spine the middle aspect of the tibiotalar joint. Also reference off patient's soboba slope. The tibial cutting jig was then pinned with anticipated resection of 2 mm off of the deficient medial tibial condyle. This cut was made with the oscillating saw. Once this was complete a laminar library circulation clerk was utilized in both medial lateral meniscus were removed and a posterior capsular osteophytes were also removed. Posterior capsule release was performed in the posterior capsule as well as the geniculate arteries are treated with the aqua Angelina. The tibia was incised and the appropriate sized tibial tray was then pinned. The femoral box cutting jig was then applied to the femur and the box was prepared removing a portion of the intercondylar notch. The femoral trial was then placed and the knee was trialed. Full flexion-extension were easily achieved. The knee seemed to balance quite nicely. Any remaining osteophytes were removed at this time. Once this was complete the patella was everted and the Mily patella reaming device was then utilized the patella was then placed in the appropriate jig and reamer was then used to remove approximately 9 mm of the undersurface of the patella. A soft tissue remaining was in the way was removed and patella trial was then placed listed maintain excellent tracking using the no thumbs technique. The tibial tray at this point was punched to accommodate the fins of the final implant. At this point cement was mixed on the back table. The trial components were removed and the knee was copiously irrigated. Did use a cocktail of injection for postoperative pain control. The final components were then cemented in the standard fashion and excess cement was removed with cement removal tools and patellar clamp is placed in the patella. As the cement had cured in full extension tourniquet was deflated and hemostasis was perfect with Bovie cautery as well as the aqua Manus. Needle is once again trialed with different size polyethylenes to ensure the full range of motion was achieved as well as excellent balancing ligamentously was achieved. At this point the knee was copiously irrigated. Final implant was then inserted locking mechanism was engaged and confirmed to be locked. The arthrotomy was then closed with #1 Vicryl aggravate type fashion interrupted. Subcutaneous tissue was closed with 0 Vicryl and surgical stella were placed in the skin. A occlusive silver impregnated dressing was then applied followed by well-padded sterile dressing secured with an Rj wrap. The patient was taken to the PACU in stable condition. No complications known at this time. Postoperatively we will maintain standard total knee postoperative protocol. The use of the physician funeral assistant was integral during this procedure. They assisted with positioning placement of the tourniquet retracting closure and placement of the dressing. The procedure would have been much more difficult without their expertise and assistance
--- NOTE | 2018-03-07 08:50 | OP.PCM_ITS ---
Operative Report Date of Procedure: 03/07/18 Primary Surgeon/Physician: Bryce Pierson lightning rod erector: Hitesh Tolentino PA-C lightning rod erector: Pre-Operative Diagnosis: OA right knee Post-Operative Diagnosis: same Surgery/Procedure Performed: Right TKR Specimen's Removed: bone Type of Anesthesia: general after failed spinal ASA Class: 2 Implants: [Js Triathlon size 4 PS femur, size 4 tibia, 11 mm polyethylene, 32 mm patella (all components cemented) ] Indications: Patient has severe end-stage osteoarthritis diagnosed via x-rays in the knee. They have failed all forms of conservative measures including activity modification, injections, anti-inflammatories, use of assistive device. The patient has pain that affects on a daily basis and prevents him from doing things that they enjoyed. They have elected to undergo the above procedure. The risks of the procedure were discussed at length and their questions were answered. Procedure Description: The patient was greeted in the preoperative area. The [right knee ] knee was then marked with a surgical marker. Patient was then taken to or Suite 2. They were administered a dose of antibiotics as well as tranexamic acid. Once adequate anesthesia was obtained and airway was secured to placed in supine position on the operating room table. A well-padded tourniquet was placed on the affected extremity. Leg was then prepped and draped in the usual sterile fashion from the knee down. Ioban was used on the skin. Surgical timeout was then performed and confirmed with all present. Six- inch Esmarch was used to examine the limb and tourniquet was then inflated to 250 mmHg. A longitudinal incision was then planned and carried out in the anterior aspect of the knee. The dissection was then carried the length of the incision the extensor mechanism was identified. Standard medial parapatellar arthrotomy was then performed revealing severe eburnation of bone and periarticular osteophytes. There is complete loss of cartilage especially in the medial compartment with varus alignment. Anterior fat pad was removed for visualization purposes and the anterior medial aspect of the tibia was skeletonized for exposure to the knee. The knee was then flexed the patella was inverted. Opening reamer was then used in the femur approximately 1 cm anterior to the attachment of the PCL. The intramedullary valgus wand was then placed in the femur set at 5? of valgus. The distal femoral cutting jig was then applied to the femur with anticipated resection of approximately 8 mm. This was then made with a oscillating saw. The sizing guide was then placed referencing off the posterior condyles and also reference off the epicondylar axis. This was measured and the appropriate size 4-in-1 cutting jig was then applied to the distal femur. Anterior posterior cuts were made followed by the anterior and posterior chamfer cuts. These bony pieces and fragments were removed and placed on the back table. Posterior retractor was then utilized and the tibia was subluxed anteriorly. Intramedullary tibial alignment jig was then applied to the tibia referencing off the medial one third of the tibial tubercle the anterior tibial spine the middle aspect of the tibiotalar joint. Also reference off patient's lumbee slope. The tibial cutting jig was then pinned with anticipated resection of 2 mm off of the deficient medial tibial condyle. This cut was made with the oscillating saw. Once this was complete a laminar car carder was utilized in both medial lateral meniscus were removed and a posterior capsular osteophytes were also removed. Posterior capsule release was performed in the posterior capsule as well as the geniculate arteries are treated with the aqua Angelina. The tibia was incised and the appropriate sized tibial tray was then pinned. The femoral box cutting jig was then applied to the femur and the box was prepared removing a portion of the intercondylar notch. The femoral trial was then placed and the knee was trialed. Full flexion-extension were easily achieved. The knee seemed to balance quite nicely. Any remaining osteophytes were removed at this time. Once this was complete the patella was everted and the Mily patella reaming device was then utilized the patella was then placed in the appropriate jig and reamer was then used to remove approximately 9 mm of the undersurface of the patella. A soft tissue remaining was in the way was removed and patella trial was then placed listed maintain excellent tracking using the no thumbs technique. The tibial tray at this point was punched to accommodate the fins of the final implant. At this point cement was mixed on the back table. The trial components were removed and the knee was copiously irrigated. Did use a cocktail of injection for postoperative pain control. The final components were then cemented in the standard fashion and excess cement was removed with cement removal tools and patellar clamp is placed in the patella. As the cement had cured in full extension tourniquet was deflated and hemostasis was perfect with Bovie cautery as well as the aqua Manus. Needle is once again trialed with different size polyethylenes to ensure the full range of motion was achieved as well as excellent balancing ligamentously was achieved. At this point the knee was copiously irrigated. Final implant was then inserted locking mechanism was engaged and confirmed to be locked. The arthrotomy was then closed with #1 Vicryl aggravate type fashion interrupted. Subcutaneous tissue was closed with 0 Vicryl and surgical stella were placed in the skin. A occlusive silver impregnated dressing was then applied followed by well-padded sterile dressing secured with an Rj wrap. The patient was taken to the PACU in stable condition. No complications known at this time. Postoperatively we will maintain standard total knee postoperative protocol. The use of the physician sales support assistant was integral during this procedure. They assisted with positioning placement of the tourniquet retracting closure and placement of the dressing. The procedure would have been much more difficult without their expertise and assistance
[2018-03-07] MEDS: Ondansetron 4 MG/2 ML Vial IV (13:11)
[2018-03-07] MEDS: Lactated Ringers 1,000 ML 125 ML IV ×2 (13:15→22:45)
[2018-03-07] MEDS: traMADol 50 MG Tablet PO (14:22)
[2018-03-07] MEDS: Gabapentin 100 MG Capsule PO (16:34)
[2018-03-07] MEDS: oxyCODONE 5 MG Tablet PO ×2 (16:36→21:42)
[2018-03-07] MEDS: Budesonide Respules 0.5 MG/2 ML AMPUL.NEB. INHALATION (21:00)
[2018-03-07] MEDS: Losartan Potassium 50 MG Tablet PO (23:14)
[2018-03-07] MEDS: Atorvastatin Calcium 80 MG Tablet PO (23:14)
[2018-03-07] MEDS: Carvedilol 12.5 MG Tablet PO (23:14)
[2018-03-07] MEDS: Senna/Docusate Sodium 1 Tablet 2 TABLET PO (23:15)
[2018-03-07] MEDS: Gabapentin 300 MG Capsule PO (23:18)
[2018-03-08 04:46] VITALS: BP 128/70; PULSE 64; RESP 16; TEMP 37.3; O2SAT 93
[2018-03-08] MEDS: 0.9% NaCl Peripheral Flush Adult/Peds IV (04:51)
[2018-03-08] MEDS: Acetaminophen 500 MG Tablet 1000 MG PO ×2 (05:08→15:10)
[2018-03-08 05:29] LABS: Hematocrit 32.7 % (37-47); Hemoglobin 10.5 g/dl (12.0-15.0); Mean Corp Hgb Conc 32.1 g/gl (32-36); Mean Corpuscular Hgb 30.2 pg (27.0-32.0); Mean Platelet Vol. 12.2 fl (6.2-12.0); Platelet Count 147 K/mm3 (150-450); RBC Distribution Width CV 14.4 % (11.6-14.6); RBC Distribution Width SD 46.8 fl (35.1-43.9); Red Blood Count 3.48 M/mm3 (4.2-5.4)
[2018-03-08] MEDS: oxyCODONE 5 MG Tablet PO ×2 (06:10→12:50)
[2018-03-08 06:27] LABS: Anion Gap 7 (5-15); BUN 17 mg/dL (7-18); BUN/Creat Ratio 19.3 RATIO (10-20); Calcium,Total 9.1 mg/dL (8.5-10.1); Chloride 105 mmol/L (98-107); Creatinine, Serum 0.88 mg/dL (0.55-1.02); EST Glomerular Filtration Rate 66 mL/min (>60); Est Glom Filt Rate - Afr Amer 80 mL/min (>60); Estimated Creatinine Clearance 44.36 ml/min; Glucose 89 mg/dL (74-106); Potassium 4.3 mmol/L (3.5-5.1); Sodium Level 143 mmol/L (136-145)
[2018-03-08 07:00] LABS: Scan Indicated on CBC? Y/N NO
[2018-03-08 07:08] VITALS: PULSE 67; RESP 16; O2SAT 92
[2018-03-08] MEDS: Budesonide Respules 0.5 MG/2 ML AMPUL.NEB. INHALATION (07:08)
[2018-03-08 07:18] VITALS: BP 100/54; PULSE 64; RESP 16; TEMP 37.3; O2SAT 92
[2018-03-08] MEDS: Allopurinol 100 MG Tablet PO (07:37)
[2018-03-08] MEDS: Gabapentin 100 MG Capsule PO (07:37)
[2018-03-08] MEDS: Aspirin 81 MG TAB.CHEW PO (07:37)
[2018-03-08] MEDS: Anastrozole 1 MG Tablet PO (10:32)
[2018-03-08] MEDS: Carvedilol 12.5 MG Tablet PO (10:32)
[2018-03-08] MEDS: Furosemide 40 MG Tablet PO (10:33)
[2018-03-08] MEDS: Clopidogrel Bisulfate 75 MG Tablet PO (10:33)
[2018-03-08] MEDS: Senna/Docusate Sodium 1 Tablet 2 TABLET PO (10:33)
--- NOTE | 2018-03-08 12:09 | PN.ORTHO_ITS ---
Subjective: Patient sitting up in bed. States pain is well managed. Denies chest pain, shortness breath, calf pain, nausea vomiting. No other complaints. Ready for discharge home. Objective: Dressings clean dry intact. Negative signs and symptoms of DVT. Patient's labs and vitals are within normal limits. Patient is afebrile neurovascular is otherwise intact. Patient has no obvious respiratory distress, speaking in full sentences. - Physical Exam General: Alert, Oriented x3, Cooperative HEENT: PERRLA Oral: Moist Mucosa Neurological: Cranial nerves II-XII grossly intact Psych/Mental Status: Normal Affect, Alert and oriented to time, place, person, mood and affect Vital Signs Temp Pulse Resp BP Pulse Ox 99.1 F 64 16 100/54 L 92 03/08/18 07:18 03/08/18 07:18 03/08/18 07:18 03/08/18 07:18 03/08/18 07:18 Oxygen Flow Rate (L/min) 2 Oxygen Delivery Method Room Air Weight: 87.543 kg Body Mass Index (BMI) 35.3 Intake and Output for Last 24 Hours 03/06/18 03/07/18 03/08/18 23:59 23:59 23:59 Intake Total 2953 / 2953 1734 / 1734 Output Total 200 / 200 Balance 2953 / 2953 1534 / 1534 Laboratory Tests Past 24 Hrs 03/08/18 03/08/18 04:55 04:55 WBC 7.0 RBC 3.48 L Hgb 10.5 L Hct 32.7 L MCV 94.0 MCH 30.2 MCHC 32.1 RDW 14.4 RDW Differential 46.8 H Plt Count 147 L MPV 12.2 H Sodium 143 Potassium 4.3 Chloride 105 Carbon Dioxide 31.0 Anion Gap 7 BUN 17 Creatinine 0.88 Estim Creat Clear Calc 44.36 Est GFR (MDRD) Af Amer 80 Est GFR (MDRD) Non-Af 66 BUN/Creatinine Ratio 19.3 Glucose 89 Calcium 9.1 Medical Necessity - Tobacco Use Smoking Status: Former smoker Assessment/Plan All Active Problems (Last Updated 01/18/18 @ 09:54 by LETICIA MorganC) Abnormal electrocardiogram (Acute) Ischemic cerebrovascular accident (CVA) (Acute 06/18/17) Status post right total knee Plan 1. Continue all pain medications as prescribed 2. Continue physical therapy weight-bear as tolerated with walker. 3. Patient will continue with outpatient therapy at [facility] [place] 4. Patient will restart her Plavix as prescribed, aspirin 81 mg 1 p.o. daily for postop DVT prophylaxis 5. Follow-up as scheduled, see pink sheet 6. Discharge home today after p.m. therapy
--- NOTE | 2018-03-08 12:18 | DCINST_ITS ---
Discharge Diet: No Restrictions Discharge Activity: May Not Drive, May Shower, Use Walker May shower in (days): 3 Ice area for (Minutes): 20 - each hour while awake. Weight Bearing Status: Weight bearing as tolerated Elevate: Operative Extremity Additional Activity Instructions:: Wear elastic stockings for 2 weeks after your surgery. Call your doctor if your incision/area has: Continuous Slow Oozing, Sudden Increased Bleeding, Increased Pain/ Swelling, Increased Redness, Foul Smelling Discharge Call your doctor if you observe: Fever of 101 or Higher, Coldness, Increased Pain - in extremity, Numbness or Tingling, Change in Color, Calf discomfort, Uncontrolled pain Change Dressing in (Days):: 0 - and daily as needed. Remove Dressing in (days):: 8 Cleanse incision/area with: Soap & Water Allergies/Adverse Reactions: Allergies Gadolinium-MRI Contrast Medium [MRI] Allergy (Verified 02/22/18 11:08) Chest tightness ibandronate sodium [From Boniva] Allergy (Verified 02/22/18 11:08) Rash levofloxacin [From Levaquin] Allergy (Verified 02/22/18 11:08) Swelling Penicillins Allergy (Verified 02/22/18 11:08) Rash mannitol [From Reclast] Adverse Reaction (Verified 02/22/18 11:08) Pain in joints water for injection,sterile [From Reclast] Adverse Reaction (Verified 02/22/18 11:08) Pain in joints zoledronic acid [From Reclast] Adverse Reaction (Verified 02/22/18 11:08) Pain in joints LAMBERTO Allergy (Uncoded 07/21/17 11:04) Other ALL LAMBERTO'S NOVACAINE, MARCAINE, BUPIVACAINE Medications to take at Discharge Gabapentin [Neurontin] 300 mg PO QHS 10/18/13 Allopurinol [Zyloprim] 100 mg PO DAILY 03/29/14 Mometasone Furoate [Asmanex 220 mcg Twisthaler] 2 puff INHALATION DAILY 12/20/14 Cyanocobalamin (Vitamin B-12) 100 mcg PO DAILY 06/18/17 Gabapentin [Neurontin] 100 mg PO BID 06/18/17 Hydrocortisone 2.5% Crm [Hytone] 1 applicatio TOPICAL DAILY PRN 06/18/17 albuterol sulfate HFA 90 mcg/actuation aerosol inhaler 2 puff INHALATION Q6H PRN 07/21/17 potassium chloride ER 10 mEq tablet,extended release(part/cryst) 10 meq PO DAILY #10 tab 07/22/17 anastrozole 1 mg tablet 1 mg PO DAILY 01/18/18 carvedilol 12.5 mg tablet 12.5 mg PO BID 01/18/18 cholecalciferol (vitamin D3) 2,000 unit tablet 2,000 unit PO DAILY 01/18/18 ranitidine 75 mg tablet 75 mg PO PRN PRN 01/18/18 Atorvastatin Calcium [Lipitor] 80 mg PO DAILY 02/22/18 Clopidogrel Bisulfate [Plavix] 75 mg PO DAILY 02/22/18 Furosemide 40 mg PO QDAY 02/22/18 Losartan Potassium [Cozaar] 50 mg PO QHS 02/22/18 Acetaminophen [Tylenol] 1,000 mg PO Q8 #90 tab 03/08/18 Aspirin [Aspirin, Baby] 81 mg PO DAILY@0800 #30 tab.chew 03/08/18 Oxycodone [Oxyir] 5 - 10 mg PO Q4H PRN PRN 7 Days #90 tab 03/08/18 The following prescriptions were given: Oxycodone [Oxyir] 5 - 10 mg PO Q4H PRN PRN 7 Days #90 tab PRN Reason: Mod-Severe Pain (4-10) Acetaminophen [Tylenol] 1,000 mg PO Q8 #90 tab Aspirin [Aspirin, Baby] 81 mg PO DAILY@0800 #30 tab.chew Primary Care Physician: Zaida Berger NP-C [Primary Care Provider] - Test Results: Test results from this visit will be discussed in further detail at your follow- up appointment, if applicable. Please Follow Up With: Bryce Pierson, When: as scheduled (see pink sheet)
[2018-03-08 14:57] VITALS: BP 120/68; PULSE 63; RESP 16; TEMP 37.1; O2SAT 96
== END 2018-03-08 15:20 | disposition home or self-care (01) ==
LOC: MS3 08:25
PROVIDERS: Admitting Provider Orthopaedic Surgery; Family Provider Nurse Practitioner Primary Care; PCP Nurse Practitioner Primary Care; Referring Provider Orthopaedic Surgery; Visit Provider Orthopaedic Surgery
PROC: (CPT 27447; principal; 2018-03-07 06:50)
DX: M17.11 Unilateral primary osteoarthritis, right knee (principal); Z87.891 Personal history of nicotine dependence; R94.31 Abnormal electrocardiogram [ECG] [EKG]; E78.00 Pure hypercholesterolemia, unspecified; K21.9 Gastro-esophageal reflux disease without esophagitis; Z85.3 Personal history of malignant neoplasm of breast; Z79.899 Other long term (current) drug therapy; I11.0 Hypertensive heart disease with heart failure; I50.9 Heart failure, unspecified; J45.909 Unspecified asthma, uncomplicated; Z86.73 Personal history of transient ischemic attack (TIA), and cerebral infarction without residual deficits
CPT/HCPCS: 27447; 64447; 36415; 80048; 85025; 85027; 87081; 88305; 88311; 93005; 94640; 96361; 96365; 96366; 96375; 97110; 97116; 97162; 97165; 97530; 97535; 99218; C1776; J7120; A4216; G0378; G0379; J2405

== ENCOUNTER → 2018-03-23 15:10 | Outpatient (CLI) | payer MEDICARE, OTHER, SELFPAY ==
--- NOTE | 2018-03-23 15:16 | VDLE_ITS ---
Reason For Study: RLE Pain RIGHT LEFT GSV is normal. CFV is compressible, spontaneous, phasic, CFV is compressible, spontaneous, phasic, competent, and demonstrates normal competent and demonstrates normal augmentation. augmentation. FV is compressible, spontaneous, phasic, competent and demonstrates normal augmentation. POP V is compressible, spontaneous, phasic, competent and demonstrates normal augmentation. T/P Trunk is compressible. PTV is compressible. RT PerV is compressible. Procedure Exam performed in department. A preliminary report was called and/or faxed to [facility]. Interpretation Summary Deep veins of the right lower extremity are patent and compressible segmentally. There is no evidence of right lower extremity deep vein thrombosis. Valvular competence appears intact within the proximal deep venous system on the right . The right greater saphenous vein appears patent and compressible segmentally. Ordering Physician: Bryce Pierson Referring Physician: Zaida Berger Performed By: Jeanette Griffin RVT and Student
--- OUTSIDE RECORDS SUMMARY | 2018-05-28 14:29 | XMS RPT_ITS ---
:1945 Author Organization [place] Support Name Relationship Address Phone R Unavailable Unavailable Unavailable SWIHART, BECKI Unavailable [address] + [place] [address] R Unavailable Unavailable Unavailable SWIHART, BECKI Unavailable [address] + [place] [address] R Unavailable Unavailable Unavailable SWIHART, BECKI Unavailable [address] + [place] [address] R Unavailable Unavailable Unavailable SWIHART, BECKI Unavailable [address] + [place] [address] R Unavailable Unavailable Unavailable SWIHART, BECKI Unavailable [address] + [place] [address] R Unavailable Unavailable Unavailable SWIHART, BECKI Unavailable [address] + [place] [address] R Unavailable Unavailable Unavailable SWIHART, BECKI Unavailable [address] + [place] [address] SWIHART, WILL Unavailable Unavailable + SWIHART, WILL Unavailable Unavailable + SWIHART, WILL Unavailable Unavailable + R Unavailable Unavailable Unavailable SWIHART, BECKI Unavailable [address] + [place] [address] SWIHART, WILL Unavailable Unavailable + R Unavailable Unavailable Unavailable SWIHART, BECKI Unavailable [address] + [place] [address] R Unavailable Unavailable Unavailable SWIHART, BECKI Unavailable [address] + [place] [address] R Unavailable Unavailable Unavailable SWIHART, BECKI Unavailable [address] + [place] [address] R Unavailable Unavailable Unavailable SWIHART, BECKI Unavailable [address] + [place] [address] R Unavailable Unavailable Unavailable SWIHART, BECKI Unavailable [address] + [place] [address] R Unavailable Unavailable Unavailable SWIHART, BECKI Unavailable [address] + [place] [address] R Unavailable Unavailable Unavailable SWIHART, BECKI Unavailable [address] + [place] [address] R Unavailable Unavailable Unavailable SWIHART, BECKI Unavailable [address] + [place] [address] R Unavailable Unavailable Unavailable SWIHART, BECKI Unavailable [address] + [place] [address] SWIHART, WILL Unavailable Unavailable + R Unavailable Unavailable Unavailable SWIHART, BECKI Unavailable [address] + [place] [address] SWIHART, WILL Unavailable Unavailable + SWIHART, WILL Unavailable Unavailable + [employer] Unavailable [address], [address] +[place] [address] SWIHART, BECKI Unavailable [address] + [place] [address] Care Team Providers Name Role Phone LISA COOK, DR. ОЛЬГА Knight Attending Unavailable ADAN, MIRLANDE Primary Care Unavailable ADAN, MIRLANDE Attending Unavailable ADAN, MIRLANDE Primary Care Unavailable SAHRA OROZCO CNP Attending Unavailable ADAN, MIRLANDE Primary Care Unavailable DR. ALBINO KINNEY DO Attending Unavailable ADAN, MIRLANDE Primary Care Unavailable SAHRA OROZCO CNP Attending Unavailable ADAN, MIRLANDE Primary Care Unavailable MEG CHILDRESS, MS. ZAIDA Noe Attending Unavailable ADAN, MIRLANDE Primary Care Unavailable LISA COOK, DR. ОЛЬГА Knight Attending Unavailable ADAN, MIRLANDE Primary Care Unavailable SAHRA OROZCO (MANAGER FILM) Referring Unavailable SAHRA OROZCO (MANAGER FILM) Attending Unavailable SAHRA OROZCO (MANAGER FILM) Referring Unavailable PAM, SAHRA (MANAGER FILM) Attending Unavailable SAHRA OROZCO (MANAGER FILM) Referring Unavailable OROZCO, SAHRA (MANAGER FILM) Attending Unavailable OROZCO, SAHRA (MANAGER FILM) Referring Unavailable PAM, SAHRA (MANAGER FILM) Attending Unavailable SAHRA OROZCO (MANAGER FILM) Referring Unavailable DomenicoicBryce Admitting Unavailable Otiliaapestefani, Bryce Attending Unavailable OtiliaapicBryce Referring Unavailable Zaida Berger DENTAL SURGEON-C Primary Care Unavailable Josr Gomez Attending Unavailable Nilson Serrano Referring Unavailable Josr Gomez Attending Unavailable Bryce Pierson Referring Unavailable Kenna, Bryce Attending Unavailable Zaida Berger DENTAL SURGEON-C Primary Care Unavailable Daniel Guzman Attending Unavailable Daniel Guzman Referring Unavailable Adan, Mirlande Primary Care Unavailable Adan, Mirlande Attending Unavailable Adan, Mirlande Primary Care Unavailable Daniel Guzman Attending Unavailable Daniel Guzman Referring Unavailable Adan, Mirlande Primary Care Unavailable Reed Cummings Admitting Unavailable TereletsReed celestin Attending Unavailable TereletskyReed Referring Unavailable Adan, Mirlande Primary Care Unavailable Greg Gayle Consulting Unavailable TereletskyReed Admitting Unavailable SemenKaylene mckeon Attending Unavailable Tereletsky Reed Referring Unavailable Adan, Mirlande Primary Care Unavailable Kaylene Mullins Consulting Unavailable Kalieletsky, Reed Admitting Unavailable TereletskyReed Attending Unavailable Tereletsky, Reed Referring Unavailable Adan, Mirlande Primary Care Unavailable Greg Gayle Consulting Unavailable TereletskyReed Consulting Unavailable Tereletsky, Reed Admitting Unavailable TereletskyReed Attending Unavailable Tereletsky Reed Referring Unavailable Adan, Mirlande Primary Care Unavailable Greg Gayle Consulting Unavailable TereletskyReed Consulting Unavailable Adan, Mirlande Attending Unavailable Adan, Mirlande Referring Unavailable Adan, Mirlande Primary Care Unavailable Josr Gomez Attending Unavailable Cori Zacarias Attending Unavailable JasonJosr Attending Unavailable Adan, Mirlande Referring Unavailable Adan, Mirlande Primary Care Unavailable Augusto Paula Attending Unavailable TereletskyReed Referring Unavailable Nilson Serrano H Attending Unavailable Nilson Serrano Attending Unavailable Nilson Serrano Referring Unavailable Adan, Mirlande Primary Care Unavailable Nilson Serrano Attending Unavailable Nilson Serrano Referring Unavailable Adan, Mirlande Primary Care Unavailable PROBLEMS PROBLEMS DATE TYPE CONDITION / CODE ATTENDING STATUS SOURCE Unknown G89.18 - Other acute Knapic, Active [place] 9 postprocedural pain / [facility] G89.18(ICD-10) Hospital Repository Unknown R94.31 - Abnormal Jason, Josr Active [place] 9 electrocardiogram [ECG] Community [EKG] / R94.31(ICD-10) Hospital Repository Unknown R00.1 - Bradycardia, Jason, Josr Active [place] 9 unspecified / Community R00.1(ICD-10) Hospital Repository Unknown I45.10 - Unspecified Jason, [place] Active [place] 9 right bundle-branch block Community / I45.10(ICD-10) Hospital Repository Unknown R07.9 - Chest pain, Jason, [place] Active [place] 8 unspecified / Community R07.9(ICD-10) Hospital Repository Unknown I50.32 - Chronic Nilson Serrano Active [place] 8 diastolic (congestive) Community heart failure / Hospital I50.32(ICD-10) Repository Unknown I10 - Essential (primary) Nilson Serrano Active [place] 8 hypertension / Community I10(ICD-10) Hospital Repository Unknown E78.00 - Pure Nilson Serrano Active [place] 8 hypercholesterolemia, Community unspecified / Hospital E78.00(ICD-10) Repository Unknown R06.09 - Other forms of Nilson Serrano Active [place] 8 dyspnea / R06.09(ICD-10) Community Hospital Repository Unknown I50.9 - Heart failure, Adan, Active [place] unspecified / [place] Community I50.9(ICD-10) Hospital Repository Unknown E78.0 - Pure Jason, Josr Active [place] 8 hypercholesterolemia / Community E78.0(ICD-10) Hospital Repository Unknown M51.36 - Other Thomas, Active [place] 8 intervertebral disc [facility] degeneration, lumbar Hospital region / M51.36(ICD-10) Repository Unknown 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, 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 / I63.511(ICD-10) Active Asymptomatic menopausal NA Active [place] 8 state / Z78.0(ICD-10) [facility] [place] Repository Admitting Hyperlipidemia, ADAN, Active [employer] 8 Diagnosis unspecified / M[facility]DE [facility] E78.5(ICD-10) Repository Admitting Essential (primary) ADAN, Active [employer] 8 Diagnosis hypertension / [place] I10(ICD-10) Repository Admitting Chronic gout, ADAN, Active [employer] 8 Diagnosis unspecified, without [place]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[facility] tophus (tophi) / Repository M1A.9XX0(ICD-10) Admitting Vitamin D deficiency, ADAN, Active [employer] 8 Diagnosis unspecified / [facility]DE [facility] E55.9(ICD-10) Repository PROCEDURES PROCEDURES No Procedure Records FoundRESULTS RESULTS VENOUS DUPLEX LOWER Observed: 03/23/2018 Status: F Source: [place] EXTREMITY 4:19 PM [facility] RE[facility] Cardiovascular Services [address] [place] [address] Venous Duplex US, Unilateral 03/23/18 1519 MR#: [id number] Acct: [id number] Name: CIARA SAWYER I Rep #: [id number] : 1945 72 From: Rancho Gil MD Attending Dr: Bryce Pierson DO Status: REG CLI Ordering Dr: Bryce Pierson DO Date: 03/23/18 Location: CVS Sex: F C Admitted: Reason For Study: RLE Pain RIGHT LEFT GSV is normal. CFV is compressible, spontaneous, phasic, CFV is compressible, spontaneous, phasic, competent, and demonstrates normal competent and demonstrates normal augmentation. augmentation. FV is compressible, spontaneous, phasic, competent and demonstrates normal augmentation. POP V is compressible, spontaneous, phasic, competent and demonstrates normal augmentation. T/P Trunk is compressible. PTV is compressible. RT PerV is compressible. Procedure Exam performed in department. A preliminary report was called and/or faxed to [facility]. Interpretation Summary Deep veins of the right lower extremity are patent and compressible segmentally. There is no evidence of right lower extremity deep vein thrombosis. Valvular competence appears intact within the proximal deep venous system on the right . The right greater saphenous vein appears patent and compressible segmentally. Ordering Physician: Bryce Pierson Referring Physician: Zaida Berger Performed By: Jeanette Griffin RVT and Student 03/23/18 1618 Date Rancho Gil MD CC: Zaida RUCKER; Bryce Pierson DO Date Dictated: 03/23/18 1519 Date Transcribed: 03/23/181617 Cell Inspector: Signed DISCHARGE INSTRUCTION Observed: 03/08/2018 Status: F Source: [place] 12:18 PM [facility] Medical Records Department [address] [place] [address] Instructions for Home/Discharge Instructions 03/08/18 1217 MR#: [id number] Acct: [id number] Name: CIARA SAWYER I Rep #: [id number] : 1945 72 From: Arnie Tolentino PA-C PCP: Zaida Almaguer Status: ADM SELENA Discharge Diet: No Restrictions Discharge Activity: May Not Drive, May Shower, Use Walker May shower in (days): 3 Ice area for (Minutes): 20 - each hour while awake. Weight Bearing Status: Weight bearing as tolerated Elevate: Operative Extremity Additional Activity Instructions:: Wear elastic stockings for 2 weeks after your surgery. Call your doctor if your incision/area has: Continuous Slow Oozing, Sudden Increased Bleeding, Increased Pain/ Swelling, Increased Redness, Foul Smelling Discharge Call your doctor if you observe: Fever of 101 or Higher, Coldness, Increased Pain - in extremity, Numbness or Tingling, Change in Color, Calf discomfort, Uncontrolled pain Change Dressing in (Days):: 0 - and daily as needed. Remove Dressing in (days):: 8 Cleanse incision/area with: Soap AND Water Allergies/Adverse Reactions: Allergies Gadolinium-MRI Contrast Medium [MRI] Allergy (Verified 02/22/18 11:08) Chest tightness ibandronate sodium [From Boniva] Allergy (Verified 02/22/18 11:08) Rash levofloxacin [From Levaquin] Allergy (Verified 02/22/18 11:08) Swelling Penicillins Allergy (Verified 02/22/18 11:08) Rash mannitol [From Reclast] Adverse Reaction (Verified 02/22/18 11:08) Pain in joints water for injection,sterile [From Reclast] Adverse Reaction (Verified 02/22/18 11:08) Pain in joints zoledronic acid [From Reclast] Adverse Reaction (Verified 02/22/18 11:08) Pain in joints LAMBERTO Allergy (Uncoded 07/21/17 11:04) Other ALL LAMBERTO'S NOVACAINE, MARCAINE, BUPIVACAINE Medications to take at Discharge Gabapentin [Neurontin] 300 mg PO QHS 10/18/13 Allopurinol [Zyloprim] 100 mg PO DAILY 03/29/14 Mometasone Furoate [Asmanex 220 mcg Twisthaler] 2 puff INHALATION DAILY 12/20/14 Cyanocobalamin (Vitamin B-12) 100 mcg PO DAILY 06/18/17 Gabapentin [Neurontin] 100 mg PO BID 06/18/17 Hydrocortisone 2.5% Crm [Hytone] 1 applicatio TOPICAL DAILY PRN 06/18/17 albuterol sulfate HFA 90 mcg/actuation aerosol inhaler 2 puff INHALATION Q6H PRN 07/21/17 potassium chloride ER 10 mEq tablet,extended release(part/cryst) 10 meq PO DAILY #10 tab 07/22/17 anastrozole 1 mg tablet 1 mg PO DAILY 01/18/18 carvedilol 12.5 mg tablet 12.5 mg PO BID 01/18/18 cholecalciferol (vitamin D3) 2,000 unit tablet 2,000 unit PO DAILY 01/18/18 ranitidine 75 mg tablet 75 mg PO PRN PRN 01/18/18 Atorvastatin Calcium [Lipitor] 80 mg PO DAILY 02/22/18 Clopidogrel Bisulfate [Plavix] 75 mg PO DAILY 02/22/18 Furosemide 40 mg PO QDAY 02/22/18 Losartan Potassium [Cozaar] 50 mg PO QHS 02/22/18 Acetaminophen [Tylenol] 1,000 mg PO Q8 #90 tab 03/08/18 Aspirin [Aspirin, Baby] 81 mg PO DAILY@0800 #30 tab.chew 03/08/18 Oxycodone [Oxyir] 5 - 10 mg PO Q4H PRN PRN 7 Days #90 tab 03/08/18 The following prescriptions were given: Oxycodone [Oxyir] 5 - 10 mg PO Q4H PRN PRN 7 Days #90 tab PRN Reason: Mod-Severe Pain (-12/15) Acetaminophen [Tylenol] 1,000 mg PO Q8 #90 tab Aspirin [Aspirin, Baby] 81 mg PO DAILY@0800 #30 tab.chew Primary Care Physician: Zaida Berger NP-C [Primary Care Provider] - Test Results: Test results from this visit will be discussed in further detail at your follow-up appointment, if applicable. Please Follow Up With: Bryce Pierson DO When: as scheduled (see pink sheet) 03/08/18 1218 <Electronically signed by Arnie Tolentino PA-C> Date Arnie Tolentino PA-C CC: Zaida RUCKER Signed BASIC METABOLIC Collected: 03/08/2018 Status: F Source: [place] PROFILE (BMP) 4:55 AM [facility] REPOSIT[facility] TYPE CODE TESTS RESULT OUT OF RANGE REFERENCE UNITS LAB L501.0100 74-106 mg/dL Normal GLU 89 Result Comment: Please note revised GLUCOSE reference range effective 2017. LAB L501.1000 7-18 mg/dL Normal BUN 17 LAB L501.1100 0.55-1.02 mg/dL Normal CREAT,SERUM 0.88 Result Comment: The validity of the calculated GFR AND GFRAA in patients over 70 years has not been determined. Clinical correlation is essential. LAB L501.1110 >60 mL/min Normal EST GFR 66 Result Comment: Non- GFR Calc LAB L501.1115 >60 mL/min Normal EST GFR - AA 80 Result Comment: GFR Calc LAB L501.1255 ml/min Normal Estimated CRCL 44.36 LAB L501.1300 10-20 RATIO Normal BUN/CRE 19.3 LAB L501.2200 8.5-10 mg/dL Normal .1 CA 9.1 LAB L501.5300 136-14 mmol/L Normal 5 NA 143 LAB L501.5600 3.5-5. mmol/L Normal 1 K 4.3 LAB L501.5900 98-107 mmol/L Normal CL 105 LAB L501.6100 21.0-3 mmol/L Normal 2.0 CO2 31.0 LAB L501.6200 5-15 Normal GAP 7 Performed By: #### L500.2500 #### [facility] [address] [place], [address] CBC-COMPLETE BLOOD CNT Collected: 03/08/2018 Status: F Source: [place] NO DIFF 4:55 AM [facility] TYPE CODE TESTS RESULT OUT OF RANGE REFERENCE UNITS LAB L100.1000 4.4-11.0 K/mm3 Normal WBC 7.0 LAB L100.1200 4.2-5.4 M/mm3 Low RBC 3.48 LAB L100.1300 12.0-15.0 g/dl Low HGB 10.5 LAB L100.1400 37-47 % Low HCT 32.7 LAB L100.1500 81-99 fL Normal MCV 94.0 LAB L100.1600 27.0-32.0 pg Normal MCH 30.2 LAB L100.1700 32-36 g/gl Normal MCHC 32.1 LAB L100.1810 11.6-14.6 % Normal RDW CV 14.4 LAB L100.1820 35.1-43.9 fl High RDW SD 46.8 LAB L100.1900 150-450 K/mm3 Low PLT 147 LAB L100.2000 6.2-12.0 fl High MPV 12.2 Performed By: #### L100.0500 #### [facility] [address] [place], [address] OPERATIVE REPORT Observed: 03/07/2018 Status: F Source: [place] 8:50 AM [facility] Medical Records Department [address] [place] [address] Operative Report 03/07/18 0847 MR#: [id number] Acct: [id number] Name: CIARA SAWYER I Rep #: [id number] : 1945 72 From: Bryce Pierson DO PCP: Zaida Almaguer Status: ADM SELENA Y Location: [place] [address] Operative Report Date of Procedure: 03/07/18 Primary Surgeon/Physician: Bryce Pierson car blocker: Hitesh Tolentino PA-C car blocker: Pre-Operative Diagnosis: OA right knee Post-Operative Diagnosis: same Surgery/Procedure Performed: Right TKR Specimen's Removed: bone Type of Anesthesia: general after failed spinal ASA Class: 2 Implants: [Towner Triathlon size 4 PS femur, size 4 tibia, 11 mm polyethylene, 32 mm patella (all components cemented) ] Indications: Patient has severe end-stage osteoarthritis diagnosed via x-rays in the knee. They have failed all forms of conservative measures including activity modification, injections, anti-inflammatories, use of assistive device. The patient has pain that affects on a daily basis and prevents him from doing things that they enjoyed. They have elected to undergo the above procedure. The risks of the procedure were discussed at length and their questions were answered. Procedure Description: The patient was greeted in the preoperative area. The [right knee ] knee was then marked with a surgical marker. Patient was then taken to or [address]. They were administered a dose of antibiotics as well as tranexamic acid. Once adequate anesthesia was obtained and airway was secured to placed in supine position on the operating room table. A well-padded tourniquet was placed on the affected extremity. Leg was then prepped and draped in the usual sterile fashion from the knee down. Ioban was used on the skin. Surgical timeout was then performed and confirmed with all present. Six-inch Esmarch was used to examine the limb and tourniquet was then inflated to 250 mmHg. A longitudinal incision was then planned and carried out in the anterior aspect of the knee. The dissection was then carried the length of the incision the extensor mechanism was identified. Standard medial parapatellar arthrotomy was then performed revealing severe eburnation of bone and periarticular osteophytes. There is complete loss of cartilage especially in the medial compartment with varus alignment. Anterior fat pad was removed for visualization purposes and the anterior medial aspect of the tibia was skeletonized for exposure to the knee. The knee was then flexed the patella was inverted. Opening reamer was then used in the femur approximately 1 cm anterior to the attachment of the PCL. The intramedullary valgus wand was then placed in the femur set at 5 of valgus. The distal femoral cutting jig was then applied to the femur with anticipated resection of approximately 8 mm. This was then made with a oscillating saw. The sizing guide was then placed referencing off the posterior condyles and also reference off the epicondylar axis. This was measured and the appropriate size 4-in-1 cutting jig was then applied to the distal femur. Anterior posterior cuts were made followed by the anterior and posterior chamfer cuts. These bony pieces and fragments were removed and placed on the back table. Posterior retractor was then utilized and the tibia was subluxed anteriorly. Intramedullary tibial alignment jig was then applied to the tibia referencing off the medial one third of the tibial tubercle the anterior tibial spine the middle aspect of the tibiotalar joint. Also reference off patient's [place] slope. The tibial cutting jig was then pinned with anticipated resection of 2 mm off of the deficient medial tibial condyle. This cut was made with the oscillating saw. Once this was complete a laminar economist research assistant was utilized in both medial lateral meniscus were removed and a posterior capsular osteophytes were also removed. Posterior capsule release was performed in the posterior capsule as well as the geniculate arteries are treated with the aqua Angelina. The tibia was incised and the appropriate sized tibial tray was then pinned. The femoral box cutting jig was then applied to the femur and the box was prepared removing a portion of the intercondylar notch. The femoral trial was then placed and the knee was trialed. Full flexion-extension were easily achieved. The knee seemed to balance quite nicely. Any remaining osteophytes were removed at this time. Once this was complete the patella was everted and the Mily patella reaming device was then utilized the patella was then placed in the appropriate jig and reamer was then used to remove approximately 9 mm of the undersurface of the patella. A soft tissue remaining was in the way was removed and patella trial was then placed listed maintain excellent tracking using the no thumbs technique. The tibial tray at this point was punched to accommodate the fins of the final implant. At this point cement was mixed on the back table. The trial components were removed and the knee was copiously irrigated. Did use a cocktail of injection for postoperative pain control. The final components were then cemented in the standard fashion and excess cement was removed with cement removal tools and patellar clamp is placed in the patella. As the cement had cured in full extension tourniquet was deflated and hemostasis was perfect with Bovie cautery as well as the aqua Manus. Needle is once again trialed with different size polyethylenes to ensure the full range of motion was achieved as well as excellent balancing ligamentously was achieved. At this point the knee was copiously irrigated. Final implant was then inserted locking mechanism was engaged and confirmed to be locked. The arthrotomy was then closed with #1 Vicryl aggravate type fashion interrupted. Subcutaneous tissue was closed with 0 Vicryl and surgical stella were placed in the skin. A occlusive silver impregnated dressing was then applied followed by well-padded sterile dressing secured with an Rj wrap. The patient was taken to the PACU in stable condition. No complications known at this time. Postoperatively we will maintain standard total knee postoperative protocol. The use of the physician insurance claims assistant was integral during this procedure. They assisted with positioning placement of the tourniquet retracting closure and placement of the dressing. The procedure would have been much more difficult without their expertise and assistance 03/07/18 0850 <Electronically signed by Bryce Pierson DO> Date Bryce Pierson DO CC: Zaida RUCKER; Bryce Pierson DO Signed TOTAL KNEE REPLACEMENT Observed: 03/07/2018 Status: F Source: [place] 7:15 AM [facility] Patient: CIARA SAWYER I : 1945 (72/F) Acct Num: [id number] Phys: Bryce Pierson DO Unit Num: [id number] Loc: MS3 [id number] Specimen: [id number] Received: 03/07/18 - 1030 Spec Type: TOTAL KNEE TISSUES 1 TISSUES: Knee, NOS GROSS DESCRIPTION Received is one container designated right knee bone and tissue. The specimen consists of multiple fragments of reese-yellow bone measuring in aggregate 16 x 11 x 1.5 cm. Also in the specimen container are multiple fragments of yellow-white soft tissue measuring in aggregate 2 x 1.5 x 0.6 cm. A number of bony fragments contain articular surfaces consistent with tibial plateau and femoral condyle and displaying prominent osteophyte formation, eburnation, and bone erosion. Fitness Coach sections are submitted in two cassettes as follows: 1 - soft tissue, 2 - bone after decalcification. / AM:damaris 03/07/18 TC:5 CPT: 10378, 05016 HEADER OPERATION: Total knee replacement PRE-OP DIAGNOSIS: Osteoarthritis right knee TISSUE SUBMITTED: Right knee bone and tissue MICROSCOPIC DESCRIPTION Slides are reviewed. MICROSCOPIC DIAGNOSIS Bone and soft tissue, right knee, total knee replacement: Pieces of bone with degenerative osteoarthritic changes. Fragments of fibroadipose and fibroconnective tissue. SJ:damaris 03/11/18 Signed Kt Stovall MD 03/11/18 <signature on file> Performed By: #### PKNEE #### [facility] [address] [place], [address] 12 LEAD ELECTROCARDIOGRAM Observed: 02/25/2018 Status: F Source: [place] 1:40 PM [facility] [facility] [place] [facility] Cardiovascular Services [address] [place] [address] EK - [facility] [place] 02/22/18 1141 MR#: [id number] Acct: [id number] Name: CIARA SAWYER I Rep #: [id number] : 1945 72 From: Josr Gomez MD Attending Dr: Bryce Pierson DO Status: PRE IN Ordering Dr: Bryce Pierson DO Date: 02/22/18 Location: [facility] [place] Sex: F C Admitted: Test Reason : Blood Pressure : / mmHG Vent. Rate : 055 BPM Atrial Rate : 055 BPM P-R Int : 232 ms QRS Dur : 128 ms QT Int : 458 ms P-R-T Axes : 047 037 016 degrees QTc Int : 438 ms Sinus bradycardia with 1st degree A-V block Right bundle branch block Abnormal ECG Confirmed by JOSR GOMEZ MD ([id number]), medical transcription editor KAVYA HERRERA ([id number]) on 02/25/2018 1:40:15 PM Referred By: Bryce Pierson Confirmed By:JOSR GOMEZ MD 02/25/18 1340 Date Josr Gomez MD CC: Zaida Berger DENTAL SURGEON-C; Bryce Pierson DO Date Dictated: 02/22/18 1141 Date Transcribed: 02/22/18 1141 Cell Inspector: Signed CBC W/DIFF, AUTOMATED Collected: 02/22/2018 Status: F Source: [place] 11:50 AM [facility] [place] RE[facility] TYPE CODE TESTS RESULT OUT OF RANGE REFERENCE UNITS LAB L100.1000 4.4-11.0 K/mm3 Normal WBC 6.3 LAB L100.1200 4.2-5.4 M/mm3 Normal RBC 4.44 LAB L100.1300 12.0-15.0 g/dl Normal HGB 13.1 LAB L100.1400 37-47 % Normal HCT 40.8 LAB L100.1500 81-99 fL Normal MCV 91.9 LAB L100.1600 27.0-32.0 pg Normal MCH 29.5 LAB L100.1700 32-36 g/gl Normal MCHC 32.1 LAB L100.1810 11.6-14.6 % Normal RDW CV 14.2 LAB L100.1820 35.1-43.9 fl High RDW SD 46.3 LAB L100.1900 150-450 K/mm3 Normal PLT 191 LAB L100.2000 6.2-12.0 fl High MPV 12.5 LAB L100.2100 47-70 % Normal NEUT% 57.6 LAB L100.2200 19-41 % Normal LY% 20.2 LAB L100.2300 0-10 % Normal MONO% 10.0 LAB L100.2400 0-5 % High EO% 11.2 LAB L100.2500 0-1 % Normal BASO% 0.8 LAB L100.2550 0.0-0.9 % Normal IM GRAN % 0.200 Result Comment: IG% - Immature Granulocytes (promyelocytes, myelocytes and metamyelocytes) > 1% indicates that a LEFT SHIFT is Present. LAB L100.2620 2.0-7.7 X10 3/uL Normal Absolute Neut 3.7 LAB L100.2720 0.83-4.51 X10 3/ul Normal Absolute Lymph 1.28 Performed By: #### L100.0100 #### [facility] Laboratory [address] [place], [address] BASIC METABOLIC Collected: 02/22/2018 Status: F Source: [place] PROFILE (BMP) 11:50 AM [facility] [place] [facility] TYPE CODE TESTS RESULT OUT OF RANGE REFERENCE UNITS LAB L501.0100 74-106 mg/dL Normal GLU 85 Result Comment: Please note revised GLUCOSE reference range effective 2017. LAB L501.1000 7-18 mg/dL Normal BUN 17 LAB L501.1100 0.55-1.02 mg/dL Normal CREAT,SERUM 0.94 Result Comment: The validity of the calculated GFR AND GFRAA in patients over 70 years has not been determined. Clinical correlation is essential. LAB L501.1110 >60 mL/min Normal EST GFR 62 Result Comment: Non- GFR Calc LAB L501.1115 >60 mL/min Normal EST GFR - AA 75 Result Comment: GFR Calc LAB L501.1255 ml/min Normal Estimated CRCL 41.53 LAB L501.1300 10-20 RATIO Normal BUN/CRE 18.1 LAB L501.2200 8.5-10 mg/dL Normal .1 CA 9.5 LAB L501.5300 136-14 mmol/L Normal 5 NA 144 LAB L501.5600 3.5-5. mmol/L Normal 1 K 3.6 LAB L501.5900 98-107 mmol/L Normal CL 105 LAB L501.6100 21.0-3 mmol/L Normal 2.0 CO2 31.0 LAB L501.6200 5-15 Normal GAP 8 Performed By: #### L500.2500 #### [facility] [address] [place], [address] Observed: 02/22/2018 Status: F Source: [place] MRSA/SAID SCREEN 11:50 AM [facility] [place] RE[facility] MRSA/SAID SCRN S. AUREUS S. aureus Negative MRSA MRSA Negative Performed By: #### M100.651 #### [facility] [address] [place], [address] PROGRESS Observed: 02/10/2018 Status: COMPLETED Source: [place] 11:34 AM [facility] REPOSITORY HNO ID: [id number] Author: Sahra Orozco Service: (none) Author Type: Nurse Practitioner Type: Progress Notes Filed: 02/10/2018 12:14 PM Note Text: Chief Complaint Patient presents with: Established Patient HPI: Ciara Sawyer is a 72 year old female who presents here today for follow up breast cancer. Per Dr. Reyes's previous note: H/o HTN and CHF (?etiology) who was found to have an abnormality in the left breast on recent screening mammogram. ?? Patient underwent a bilateral digital screening mammogram in October 2016. There was a 6 mm irregular density noted in the left breast appearing to be indeterminate. ?? Patient underwent a subsequent ultrasound study on 10/20/2016. There was a 6 mm oval mass with an indistinct margin observed in the left breast at 2:00 anterior depth. It was hypoechoic. It correlated with the mammogram findings. ?? The patient was referred to Dr. lara who performed a core needle biopsy on 11/04/2016. ?? The pathology demonstrated an invasive well-differentiated ductal carcinoma. ER/PA were both positive at 90% and 80% respectively. HER-2 was quantified at 2+. ?? Underwent a left-sided lumpectomy with left axillary sentinel lymph node dissection on 12/03/2016. The final pathology demonstrated that within the lumpectomy specimen there was an 8 mm invasive ductal carcinoma. It was grade 1. DCIS was absent. There was a unifocal tumor. Margins were free of carcinoma. All were greater than 1 cm. 3 lymph nodes were retrieved. All were negative for disease. ? ? RADIATION:01/26/17 to 02/16/17 ? ? Current therapy:arimidex Began 2017. ? ? Pt. had a stroke on June 18. ?I have to really think about what I'm thinking before I say it. I have to be careful when I drink liquids. No other effects from stroke. ? Appetite:not great. Energy level:poor-since her stroke in June Denies fevers or recent illness. Resp:denies cough or sob at rest, occ. simons with steps h/o asthma per pt. Cardiac:denies chest pain/palpitations GI:denies abd pain, n/v, moving bowels regularly :denies dysuria/hematuria Extrem:chronic back/R knee/R foot-followed by CPM. Pt. is scheduled to have R total knee on . Endo:denies hot flashes Neuro:denies symptoms of neuropathy Skin:denies rashes/lesions Heme:denies bleeding The ROS is otherwise negative. Past medical history, appointments, medications, allergies reviewed. No changes. EXAM: BP 117/70 Pulse (!) 53 Temp 36.7 ?C (98.1 ?F) (Oral) Wt 88 kg (194 lb) BMI 36.36 kg/m? APPEARANCE Well appearing, alert, in no acute distress, well-hydrated, well nourished. HEART RRR with normal S1 and S2, no murmurs LUNG clear to auscultation BREAST FEMALE no mass/nodule, L scar upper/outer LYMPH NODES No cervical lymphadenopathy, No supraclavicular lymphadenopathy and No axillary lymphadenopathy. ABDOMEN bowel sounds normoactive, soft, non-tender, non-distended, without organomegaly or palpable masses EXTREMITIES No edema NEURO Awake, alert and oriented x 3, Normal gait and No involuntary motions. SKIN Skin color, texture, turgor normal, no suspicious rashes or lesions ASSESSMENT/PLAN: 1. Malignant neoplasm of central portion of left breast in female, estrogen receptor positive (HCC) - ICD9: 174.1, V86.0, ICD10: C50.112, Z17.0 pT1b pN0sln MX ER/PA positive, HER2 negative by FISH invasive ductal carcinoma of the left breast. - No concerning findings on exam. - ?Tolerating arimidex well. Continue. Rx done. - Reviewed L Dx mammogram done in Nov. - B/l dx mammogram due in August. Pt. has this done at [facility]. - ?Follow up in 6 months. - ?Pt. aware to call office with any questions/concerns. ? The patient indicates understanding of these issues and agrees with the plan. Sahra Orozco APRN.CNP CNOVSP Observed: 02/10/2018 Status: COMPLETED Source: [place] 11:00 AM [facility] REPOSITORY Visit (SP) Office (REZA) MANUELEVANCIARA VAZQUEZ I ([id number]) 1945 F Date Time Provider Department 02/10/18 11:00 AM SAHRA OROZCO During your visit today, we recorded the following information about you: Temperature Pulse Blood pressure Weight 98.1 degrees 53/minute 117/70 88 kg Sahra Orozco APRN.CNP 02/10/2018 12:14 PM Signed Chief Complaint Patient presents with: Established Patient HPI: Ciara Jacinto Manueljaye is a 72 year old female who presents here today for follow up breast cancer. Per Dr. Reyes's previous note: H/o HTN and CHF (?etiology) who was found to have an abnormality in the left breast on recent screening mammogram. ?? Patient underwent a bilateral digital screening mammogram in October 2016. There was a 6 mm irregular density noted in the left breast appearing to be indeterminate. ?? Patient underwent a subsequent ultrasound study on 10/20/2016. There was a 6 mm oval mass with an indistinct margin observed in the left breast at 2:00 anterior depth. It was hypoechoic. It correlated with the mammogram findings. ?? The patient was referred to Dr. bort who performed a core needle biopsy on 11/04/2016. ?? The pathology demonstrated an invasive well-differentiated ductal carcinoma. ER/PA were both positive at 90% and 80% respectively. HER- 2 was quantified at 2+. ?? Underwent a left-sided lumpectomy with left axillary sentinel lymph node dissection on 12/03/2016. The final pathology demonstrated that within the lumpectomy specimen there was an 8 mm invasive ductal carcinoma. It was grade 1. DCIS was absent. There was a unifocal tumor. Margins were free of carcinoma. All were greater than 1 cm. 3 lymph nodes were retrieved. All were negative for disease. ? ? RADIATION:01/26/17 to 02/16/17 ? ? Current therapy:arimidex Began 2017. ? ? Pt. had a stroke on June 18. ?I have to really think about what I'm thinking before I say it. I have to be careful when I drink liquids. No other effects from stroke. ? Appetite:not great. Energy level:poor-since her stroke in June Denies fevers or recent illness. Resp:denies cough or sob at rest, occ. simons with steps h/o asthma per pt. Cardiac:denies chest pain/palpitations GI:denies abd pain, n/v, moving bowels regularly :denies dysuria/hematuria Extrem:chronic back/R knee/R foot-followed by CPM. Pt. is scheduled to have R total knee on . Endo:denies hot flashes Neuro:denies symptoms of neuropathy Skin:denies rashes/lesions Heme:denies bleeding The ROS is otherwise negative. Past medical history, appointments, medications, allergies reviewed. No changes. EXAM: BP 117/70 Pulse (!) 53 Temp 36.7 ?C (98.1 ?F) (Oral) Wt 88 kg (194 lb) BMI 36.36 kg/m? APPEARANCE Well appearing, alert, in no acute distress, well- hydrated, well nourished. HEART RRR with normal S1 and S2, no murmurs LUNG clear to auscultation BREAST FEMALE no mass/nodule, L scar upper/outer LYMPH NODES No cervical lymphadenopathy, No supraclavicular lymphadenopathy and No axillary lymphadenopathy. ABDOMEN bowel sounds normoactive, soft, non-tender, non-distended, without organomegaly or palpable masses EXTREMITIES No edema NEURO Awake, alert and oriented x 3, Normal gait and No involuntary motions. SKIN Skin color, texture, turgor normal, no suspicious rashes or lesions ASSESSMENT/PLAN: 1. Malignant neoplasm of central portion of left breast in female, estrogen receptor positive (HCC) - ICD9: 174.1, V86.0, ICD10: C50.112, Z17.0 pT1b pN0sln MX ER/PA positive, HER2 negative by FISH invasive ductal carcinoma of the left breast. - No concerning findings on exam. - ?Tolerating arimidex well. Continue. Rx done. - Reviewed L Dx mammogram done in Nov. - B/l dx mammogram due in August. Pt. has this done at [facility]. - ?Follow up in 6 months. - ?Pt. aware to call office with any questions/concerns. ? The patient indicates understanding of these issues and agrees with the plan. Sahra Orozco APRN.MANAGER FILM Enedina Thornton LPN 02/10/2018 11:41 AM Signed Est patient. Three month office visit. Enedina Thornton LPN Referring Provider: SAHRA OROZCO [[id number]] Allergies As of Date: 02/10/2018 Noted Allergy Reaction BONIVA (IBANDRONATE) 11/25/2016 2 - Rash LAMBERTO-1 05/19/2012 2 - Rash 12 - Shortness of Breath 14 - Other: See Comments Comments: tightness in chest IV CONTRAST DYE (IODINE) 11/25/2016 14 - Other: See Comments Comments: Chest pain LEVAQUIN (LEVOFLOXACIN) 11/25/2016 7 - Swelling PENICILLINS 05/19/2012 2 - Rash RECLAST (ZOLEDRONIC ACID-MANNITOL*11/25/2016 14 - Other: See Comments Comments: Muscle aches Date Reviewed: 02/10/2018 Reviewed by: Sahra Orozco - Fully Assessed Reason for Visit: Established Patient [175] Primary Visit Diagnosis:Malignant neoplasm of central portion of left breast in female, estrogen receptor positive (HCC) [C50.112, Z17.0] Other Visit Diagnosis:Encounter for screening mammogram for high-risk patient [Z12.31] Order(s):anastrozole (ARIMIDEX) 1 mg tabletTake 1 tablet by mouth once daily.Disp: 90 tabletRfl: 3 LOCO DIAGNOSTIC BILAT [6461612] Order #: [id number] FUTURE Follow-up and Disposition History Recorded Prescriptions as of 02/10/2018 Sig: LOSARTAN 50 MG TABLET Take 50 mg by mouth once olga* ANASTROZOLE 1 MG TABLET Take 1 tablet by mouth once d* ATORVASTATIN 80 MG TABLET RANITIDINE 75 MG TABLET DAILY TRAMADOL 50 MG TABLET GABAPENTIN 100 MG CAPSULE Take 100 mg by mouth once mary* CLOPIDOGREL 75 MG TABLET Take 75 mg by mouth once olga* ASMANEX HFA 100 MCG/ACTUATION* Inhale 2 Puffs as instructed * CHOLECALCIFEROL (VITAMIN D3) * Take 1,000 Units by mouth onc* CYANOCOBALAMIN (VIT B-12) 100* Take 100 mcg by mouth once da* HYDROCORTISONE VALERATE 0.2 %* Apply 1 application to affect* ILFNDNQ-CYBNQPLCM-CQIT TABLET Take 1 tablet by mouth once d* GABAPENTIN 300 MG CAPSULE Take 300 mg by mouth daily at* ALLOPURINOL 300 MG TABLET Take 300 mg by mouth once mary* CARVEDILOL 12.5 MG TABLET Take 1 tablet by mouth twice * FUROSEMIDE 40 MG TABLET Take 40 mg by mouth once olga* POTASSIUM CHLORIDE ER 10 MEQ * Take 10 mEq by mouth once mary* NITROGLYCERIN 0.4 MG SUBLINGU* Dissolve 1 tablet under the t* Medication notes this encounter ATORVASTATIN 80 MG TABLET >> Enedina Thornton LPN 02/10/2018 11:32 AM >> ENEDINA THORNTON LPN [facility] Feb 10, 2018 11:32 AM Once a day RANITIDINE 75 MG TABLET >> Enedina Thornton LPN 02/10/2018 11:34 AM >> ENEDINA THORNTON LPN [facility] Feb 10, 2018 11:34 AM As needed TRAMADOL 50 MG TABLET >> Enedina Thornton LPN 02/10/2018 11:34 AM >> ENEDINA THORNTON LPN [facility] Feb 10, 2018 11:34 AM Taking twice a day GABAPENTIN 100 MG CAPSULE >> Enedina Thornton LPN 02/10/2018 11:34 AM >> ENEDINA THORNTON LPN [facility] Feb 10, 2018 11:34 AM Taking twice a day VALSARTAN 160 MG-HYDROCHLOROTHIAZIDE 12.5 MG TABLET >> Enedina Thornton LPN 02/10/2018 11:35 AM >> ENEDINA THORNTON LPN [facility] Feb 10, 2018 11:35 AM discontinued FLOVENT HFA 110 MCG/ACTUATION AEROSOL INHALER >> Enedina Thornton LANNY 02/10/2018 11:33 AM >> ENEDINA THORNTON LPN [facility] Feb 10, 2018 11:33 AM Not taking Problem List As Of Date 02/10/2018 Noted Resolved Edema [R60.9] INVALID FOR* Hypertension [I10] INVALID FOR* Shortness of breath [R06.02] INVALID FOR* Chest pain [R07.9] INVALID FOR* Malignant neoplasm of central portion of left b*INVALID FOR* Visit Notes: >> Enedina Thornton 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 Three month office visit. Enedina Ramona [place] Encounter Status:Closed by SAHRA OROZCO CNP on 02/10/18 STRESS REPORT Observed: 01/31/2018 Status: F Source: [place] 2:54 PM [facility] [place] RE[place] Cardiovascular Services [address] [place] [address] MR#: [id number] Acct: [id number] Name: CIARA SAWYER I Rep #: [id number] : 1945 72 From: Josr Gomez MD Primary Care: Mirlande Arellano MD Status: REG CLI Ordering Dr: Sex: F C Stress Test Report Pharmacologic myocardial perfusion stress test. 72-year-old lady with a history of heart failure and right bundle branch block. Stress protocol: Resting EKG demonstrates normal sinus rhythm with rate of 58 bpm right bundle branch block is noted resting blood pressure 130/82 mmHg. 0.4 mg of regadenoson was infused per usual protocol followed by rapid intravenous saline flush injection continuous EKG monitoring was performed. The maximum heart rate attained was 80 bpm which was 54% of maximum predicted heart rate. At rest there were no ST or T wave changes noted suggest abnormal flow reserve at peak infusion no ST or T wave changes were noted to suggest abnormal flow reserve. The resting blood pressure 130/82 with a final blood pressure 118/64. Myocardial perfusion protocol. 11.9 mCi of technetium 99m sestamibi was injected at rest. 0.4 mg of regadenoson was infused per usual protocol. At peak infusion 34.6 mCi of technetium 99m sestamibi was injected stress images were obtained stress and rest images were reconstructed and compared in the short axis vertical long and horizontal long axis. Gated images were also obtained. Perfusion SPECT analysis: Review of the stress images demonstrate normal uptake of tracer noted in all areas of the myocardium. The resting images similarly demonstrate normal uptake of tracer noted in all areas of the myocardium. No reversibility is noted to suggest ischemia. Gated SPECT analysis: The gated ejection fraction is noted to be 76%. Conclusion: Normal pharmacologic myocardial perfusion stress test. 01/31/181453 <Electronically signed by Josr Gomez MD> Date Josr Gomez MD CC: MAGALIS Serrano; Mirlande Arellano MD Date Dictated: 01/31/181450 Date Transcribed: 01/31/181450 Cell Inspector: CO Signed BNP,B-TYPE NATRIURETIC Collected: 01/18/2018 Status: F Source: [place] 11:32 AM [facility] [place] RE[place] TYPE CODE TESTS RESULT OUT OF RANGE REFERENCE UNITS LAB L503.6620 0-100 pg/mL Normal B-TYPE 63.6 PADMINI PEP Performed By: #### L503.6620 #### [facility] [address] [place], [address] BASIC METABOLIC Collected: 01/18/2018 Status: F Source: [place] PROFILE (BMP) 11:32 AM [facility] [place] RE[facility] TYPE CODE TESTS RESULT OUT OF RANGE REFERENCE UNITS LAB L501.0100 74-106 mg/dL Normal GLU 92 Result Comment: Please note revised GLUCOSE reference range effective 2017. LAB L501.1000 7-18 mg/dL Normal BUN 16 LAB L501.1100 0.55-1.02 mg/dL Normal CREAT,SERUM 0.83 Result Comment: The validity of the calculated GFR AND GFRAA in patients over 70 years has not been determined. Clinical correlation is essential. LAB L501.1110 >60 mL/min Normal EST GFR 71 Result Comment: Non- GFR Calc LAB L501.1115 >60 mL/min Normal EST GFR - AA 86 Result Comment: GFR Calc LAB L501.1300 10-20 RATIO Normal BUN/CRE 19.3 LAB L501.2200 8.5-10.1 mg/dL CA Normal 9.2 LAB L501.5300 136-145 mmol/L NA Normal 142 LAB L501.5600 3.5-5.1 mmol/L K Normal 4.1 LAB L501.5900 98-107 mmol/L CL Normal 107 LAB L501.6100 21.0-32.0 mmol/L Normal CO2 27.0 LAB L501.6200 5-15 Normal GAP 8 Performed By: #### L500.2500, L500.3400, L500.4100 #### [facility] [address] [facility] [place], [place], [id number] LIVER PROFILE Collected: 01/18/2018 Status: F Source: [place] 11:32 AM [facility] [place] RE[facility] TYPE CODE TESTS RESULT OUT OF RANGE REFERENCE UNITS LAB L501.1500 6.4-8.2 g/dL Normal T PROT 6.6 LAB L501.1800 3.2-5.0 g/dL Low ALB 3.0 LAB L501.1950 2.2-4.2 g/dL Normal GLOB 3.6 LAB L501.4100 15-37 U/L Normal AST 22 LAB L501.4305 45-117 U/L High ALK P 190 LAB L501.4405 13-56 U/L Normal ALT 24 LAB L501.4600 0.20-1.00 mg/dL Normal T BILI 0.50 LAB L501.4700 0.00-0.30 mg/dL Normal D BILI 0.13 Performed By: #### L500.2500, L500.3400, L500.4100 #### [facility] [address] [facility] [place], [place], [address] LIPID PROFILE Collected: 01/18/2018 Status: F Source: [place] 11:32 AM [facility] [place] RE[facility] TYPE CODE TESTS RESULT OUT OF RANGE REFERENCE UNITS LAB L501.4900 200 mg/dL Normal CHOL 108 Result Comment: <200 mg/dL Desirable 200-240 mg/dL Borderline >240 mg/dL High Risk LAB L501.5000 mg/dL Normal TRIG 87 Result Comment: The drugs N-Acetylcysteine and Metamizole may falsely depress this assay. Serum Triglycerides Reference Interval Normal <150 mg/dL Borderline high 150 - 199 mg/dL High 200 - 499 mg/dL Very High > or = 500 mg/dL LAB L501.6400 mg/dL Normal HDL 55 Result Comment: The drugs N-Acetylcysteine and Metamizole may falsely depress this assay. Reference Range HDL <40 mg/dL Low HDL Cholesterol HDL >or= 60 mg/dL High HDL Cholesterol LAB L501.6500 0-130 mg/dL Normal LDL 36 LAB L501.6600 5-40 mg/dL Normal VLDL 17 Performed By: #### L500.2500, L500.3400, L500.4100 #### [facility] [address] [place], [place], [id number] FINAL SURGICAL Observed: 12/09/2017 Status: F Source: [facility] PATHOLOGY REPORT 1:50 PM [facility] REPOSITORY . Pathology Reports Accession: Collected Date/Time: Received Date/Time: Pathologist: [id number] 12/09/2017 13:50 EDT 12/10/2017 07:33 EDT MD AUGUSTO ROBLES Final Surgical Pathology Report DIAGNOSIS: TRANSVERSE COLON, POLYPECTOMY -- TUBULAR ADENOMA. COMMENT: [facility] - D# [id number] CLINICAL INFORMATION: Procedure: COLONOSCOPY WITH BIOPSY Preoperative diagnosis: SCREENING Postoperative diagnosis: SCREENING SPECIMEN: A POLYP, COLORECT - BIOPSY POLYP TRANSVERSE COLON GROSS DESCRIPTION: Received in formalin labeled transverse colon polyp biopsy is a 0.5 cm reese glistening soft tissue. TS -1 Dictated by Davina BROOKS ([facility]) MICROSCOPIC DESCRIPTION: Slides reviewed. Electronically Signed by Pathology Report verified by [facility] Electronically signed by AUGUSTO ROBLES MD Sign out Date: 12/13/2017 15:55 Performing Lab: [address] Performed By: #### SPFR #### [place] [address] BD BONE DENSITY DEXA Observed: 11/19/2017 Status: F Source: [facility] AXIAL SKELETON 10:30 AM FOUNDATION REPOSITORY ORIGINAL BONE DENSITOMETRY CLINICAL STATEMENT: OSTEOPENIA COMPARISON: 09/03/2015 T Score Left Femoral Neck: -2.4 BMD (g/cm2) Left Femoral Neck: 0.586 T Score Left Hip: -1.7 BMD (g/cm2) Left Hip: 0.729 T Score Lumbar Spine L1-L4: -1.0 BMD (g/cm2) Lumbar Spine L1-L4: 0.933 CONCLUSION: The patient is considered osteopenic based on the left femoral neck which has a T score of -2.4. BMD Change from previous Hip: 8.2 % BMD Change from previous Lumbar Spine: 14.5 % *By the World Health Organization standards: Osteopenia is present when the bone mineral density is greater than 1 standard deviation (SD) but less than 2.5 SDs below a young normal sex matched populati on. Osteoporosis is present when the bone mineral density is equal to or greater than 2.5 SDs below a young normal sex matched population. Interpreted By: Leladn Clark MD Preliminary Report By: Leland Clark MD Electronically Signed By: Leland Clark MD Dictated Date: 11/19/2017 12:37:09 PM Prelim Date: 11/19/2017 12:37:09 PM Sign Date: 11/19/2017 12:38:32 PM US BREAST LEFT Observed: 11/16/2017 Status: F Source: [facility] [employer] 2:00 PM FOUNDATION REPOSITORY ORIGINAL FROM: [place] [address] PROCEDURE FOR: CIARA SAWYER [address] [place] [address] Home: PID#: [id number] Exam#: [id number] : 1945 Age: 72 TO: SAHRA OROZCO [facility] [address] [place] [address] #[id number] ULTRASOUND OF LEFT BREAST: 11/16/2017 CLINICAL: PALPABLE LUMP LEFT BREAST. Comparison is made to exams dated: 08/19/2017 mammogram and 11/16/2017 mammogram - [facility]. Color flow and real-time ultrasound of the left breast were performed. A postoperative chronic seroma/fat necrosis is seen in the area of palpable abnormality at 1 o'clock. No abnormality is seen at the second site of palpable abnormality at 3'oclock. No significant masses are identified. IMPRESSION: NEGATIVE There is no sonographic evidence of malignancy. Clinical follow up is advised. Return to annual mammogram screening schedule is recommended. I have personally reviewed the images of the examination and agree with the findings and interpretation. DELIA MOLINA M.D., cm,da/:11/16/2017 17:46:49 copy to: MIRLANDE ARELLANO MD, ph: [phone] copy to: ОЛЬГА GONZALEZ MD, [facility], ph: [phone], fax: [phone] Operating Systems Specialist: LIYAH PRADO [facility], [facility] letter sent: Normal BI-RADS 1&2 Ultrasound BI-RADS: 1 Negative MA MAMMOGRAM Observed: 11/16/2017 Status: F Source: [facility] LEFT W/RENATO 1:30 PM FOUNDATION REPOSITORY ORIGINAL FROM: [facility] [address] [place] [address] PROCEDURE FOR: CIARA SAWYER [address] [place] [address] Home: PID#: [id number] Exam#: [id number] : 1945 Age: 72 TO: SAHRA OROZCO [facility] [address] [place] [address] #[id number] LEFT DIGITAL DIAGNOSTIC MAMMOGRAM 3D/2D WITH CAD WITH MEDIOLATERAL MEDIOLATERAL OBLIQUE CRANIOCAUDAL: 11/16/2017 CLINICAL: Pt feeling lumps in left breast x 2-3 weeks, tender when laying on stomach. Comparison is made to exams dated: 08/19/2017 mammogram, 12/03/2016 specimen, 12/03/2016 localization, and 11/04/2016 ultrasound biopsy - [facility]. The tissue of the left breast is predominately fatty. Current study was also evaluated with a Computer Aided Detection (CAD) system. Scattered calcifications are present in the left breast. There is evidence of post surgical and radiation changes associated with the left breast. No significant masses, calcifications, or other findings are seen in the breast. IMPRESSION: INCOMPLETE: NEEDS ADDITIONAL IMAGING EVALUATION There is no mammographic abnormality seen in the left breast to correspond with the reported palpable abnormality; however, further workup with ultrasound is recommended. DELIA FARFAN MD [facility]/:11/16/2017 16:14:50 copy to: MIRLANDE ARELLANO MD, ph: [phone] copy to: ОЛЬГА GONZALEZ MD, [facility], ph: [phone], fax: [phone] Operating Systems Specialist: JOE CABALLERO RT(R), [facility] letter sent: Normal-Needs W/U BI-RADS 0 Mammogram BI-RADS: 0 Indeterminate PROGRESS Observed: 11/11/2017 Status: COMPLETED Source: [place] 10:08 AM [facility] REPOSITORY HNO ID: [id number] Author: Sahra Orozco Service: (none) Author Type: Nurse Practitioner Type: Progress Notes Filed: 11/11/2017 10:44 AM Note Text: Chief Complaint Patient presents with: Established Patient HPI: Ciara Sawyer is a 72 year old female who presents here today for follow up breast cancer. Per Dr. Reyes's previous note: H/o HTN and CHF (?etiology) who was found to have an abnormality in the left breast on recent screening mammogram. ?? Patient underwent a bilateral digital screening mammogram in October 2016. There was a 6 mm irregular density noted in the left breast appearing to be indeterminate. ?? Patient underwent a subsequent ultrasound study on 10/20/2016. There was a 6 mm oval mass with an indistinct margin observed in the left breast at 2:00 anterior depth. It was hypoechoic. It correlated with the mammogram findings. ?? The patient was referred to Dr. lara who performed a core needle biopsy on 11/04/2016. ?? The pathology demonstrated an invasive well-differentiated ductal carcinoma. ER/PA were both positive at 90% and 80% respectively. HER-2 was quantified at 2+. ?? Underwent a left-sided lumpectomy with left axillary sentinel lymph node dissection on 12/03/2016. The final pathology demonstrated that within the lumpectomy specimen there was an 8 mm invasive ductal carcinoma. It was grade 1. DCIS was absent. There was a unifocal tumor. Margins were free of carcinoma. All were greater than 1 cm. 3 lymph nodes were retrieved. All were negative for disease. ? ? RADIATION:01/26/17 to 02/16/17 ? ? Current therapy:arimidex Began 2017. ? ? Pt. had a stroke on June 18. ?I have to really think about what I'm thinking before I say it. I have to be careful when I drink liquids. No other effects from stroke. ? I felt a lump last week on my L side. Appetite:ok. Energy level:I'm still tired-I don't have the stamina that I had before. Denies fevers or recent illness. Resp:denies cough or sob at rest, occ. simons with steps h/o asthma per pt. Cardiac:denies chest pain/palpitations GI:denies abd pain, n/v, moving bowels regularly :denies dysuria/hematuria Extrem:chronic back/R knee/R foot-followed by CPM. Endo:+?hot flashes I just feel warm-at least a couple times per day they do not wake pt. at night. Neuro:denies symptoms of neuropathy Skin:denies rashes/lesions Heme:denies bleeding The ROS is otherwise negative. Past medical history, appointments, medications, allergies reviewed. No changes. EXAM: BP 137/77 Pulse (!) 56 Temp 36.5 ?C (97.7 ?F) (Oral) Wt 88.5 kg (195 lb) BMI 36.54 kg/m? APPEARANCE Well appearing, alert, in no acute distress, well-hydrated, well nourished. HEART RRR with normal S1 and S2, no murmurs LUNG clear to auscultation BREAST FEMALE R no mass/nodule, L scar to upper/outer, firm 2cm round mass under scar laterally LYMPH NODES No cervical lymphadenopathy, No supraclavicular lymphadenopathy and No axillary lymphadenopathy. ABDOMEN bowel sounds normoactive, no bruits, soft, non-tender, non-distended, without organomegaly or palpable masses EXTREMITIES No edema NEURO Awake, alert and oriented x 3, Normal gait and No involuntary motions. SKIN Skin color, texture, turgor normal, no suspicious rashes or lesions ASSESSMENT/PLAN: 1. Malignant neoplasm of central portion of left breast in female, estrogen receptor positive (HCC) - ICD9: 174.1, V86.0, ICD10: C50.112, Z17.0 pT1b pN0sln MX ER/PA positive, HER2 negative by FISH invasive ductal carcinoma of the left breast. - L breast mass near scar. - ?Tolerating arimidex well. Continue. - Reviewed B/l Dx mammogram done in August. - L Dx mammogram/US at [facility] in the next week or so. - ?Follow up in 3 months-pending L dx mammogram. - ?Pt. aware to call office with any questions/concerns. The patient indicates understanding of these issues and agrees with the plan. Sahra Orozco APRN.CNP CNOVSP Observed: 11/11/2017 Status: COMPLETED Source: [place] 10:00 AM [facility] REPOSITORY Visit (SP) Office (REZA) CIARA SAWYER I ([id number]) 1945 F Date Time Provider Department 11/11/17 10:00 AM SAHRA OROZCO (FIOR) REZA During your visit today, we recorded the following information about you: Temperature Pulse Blood pressure Weight 97.7 degrees 56/minute 137/77 88.5 kg Bernice Figueroa, RN, RN 11/11/2017 10:07 AM Signed Pt. reports fatigue since stroke in June 2017. Also reports finding lumps in left breast. Would like Sahra to examine. Sahra Orozco APRN.CNP 11/11/2017 10:44 AM Signed Chief Complaint Patient presents with: Established Patient HPI: Ciara Sawyer is a 72 year old female who presents here today for follow up breast cancer. Per Dr. Reyes's previous note: H/o HTN and CHF (?etiology) who was found to have an abnormality in the left breast on recent screening mammogram. ?? Patient underwent a bilateral digital screening mammogram in October 2016. There was a 6 mm irregular density noted in the left breast appearing to be indeterminate. ?? Patient underwent a subsequent ultrasound study on 10/20/2016. There was a 6 mm oval mass with an indistinct margin observed in the left breast at 2:00 anterior depth. It was hypoechoic. It correlated with the mammogram findings. ?? The patient was referred to Dr. lara who performed a core needle biopsy on 11/04/2016. ?? The pathology demonstrated an invasive well-differentiated ductal carcinoma. ER/PA were both positive at 90% and 80% respectively. HER- 2 was quantified at 2+. ?? Underwent a left-sided lumpectomy with left axillary sentinel lymph node dissection on 12/03/2016. The final pathology demonstrated that within the lumpectomy specimen there was an 8 mm invasive ductal carcinoma. It was grade 1. DCIS was absent. There was a unifocal tumor. Margins were free of carcinoma. All were greater than 1 cm. 3 lymph nodes were retrieved. All were negative for disease. ? ? RADIATION:01/26/17 to 02/16/17 ? ? Current therapy:arimidex Began 2017. ? ? Pt. had a stroke on June 18. ?I have to really think about what I'm thinking before I say it. I have to be careful when I drink liquids. No other effects from stroke. ? I felt a lump last week on my L side. Appetite:ok. Energy level:I'm still tired-I don't have the stamina that I had before. Denies fevers or recent illness. Resp:denies cough or sob at rest, occ. simons with steps h/o asthma per pt. Cardiac:denies chest pain/palpitations GI:denies abd pain, n/v, moving bowels regularly :denies dysuria/hematuria Extrem:chronic back/R knee/R foot-followed by CPM. Endo:+?hot flashes I just feel warm-at least a couple times per day they do not wake pt. at night. Neuro:denies symptoms of neuropathy Skin:denies rashes/lesions Heme:denies bleeding The ROS is otherwise negative. Past medical history, appointments, medications, allergies reviewed. No changes. EXAM: BP 137/77 Pulse (!) 56 Temp 36.5 ?C (97.7 ?F) (Oral) Wt 88.5 kg (195 lb) BMI 36.54 kg/m? APPEARANCE Well appearing, alert, in no acute distress, well- hydrated, well nourished. HEART RRR with normal S1 and S2, no murmurs LUNG clear to auscultation BREAST FEMALE R no mass/nodule, L scar to upper/outer, firm 2cm round mass under scar laterally LYMPH NODES No cervical lymphadenopathy, No supraclavicular lymphadenopathy and No axillary lymphadenopathy. ABDOMEN bowel sounds normoactive, no bruits, soft, non-tender, non-distended, without organomegaly or palpable masses EXTREMITIES No edema NEURO Awake, alert and oriented x 3, Normal gait and No involuntary motions. SKIN Skin color, texture, turgor normal, no suspicious rashes or lesions ASSESSMENT/PLAN: 1. Malignant neoplasm of central portion of left breast in female, estrogen receptor positive (HCC) - ICD9: 174.1, V86.0, ICD10: C50.112, Z17.0 pT1b pN0sln MX ER/PA positive, HER2 negative by FISH invasive ductal carcinoma of the left breast. - L breast mass near scar. - ?Tolerating arimidex well. Continue. - Reviewed B/l Dx mammogram done in August. - L Dx mammogram/US at [facility] in the next week or so. - ?Follow up in 3 months-pending L dx mammogram. - ?Pt. aware to call office with any questions/concerns. The patient indicates understanding of these issues and agrees with the plan. Sahra Orozco APRN.MANAGER FILM Referring Provider: SAHRA OROZCO ([facility]) [[id number]] Allergies As of Date: 11/11/2017 Noted Allergy Reaction BONIVA (IBANDRONATE) 11/25/2016 2 - Rash LAMBERTO-1 05/19/2012 2 - Rash 12 - Shortness of Breath 14 - Other: See Comments Comments: tightness in chest IV CONTRAST DYE (IODINE) 11/25/2016 14 - Other: See Comments Comments: Chest pain LEVAQUIN (LEVOFLOXACIN) 11/25/2016 7 - Swelling PENICILLINS 05/19/2012 2 - Rash RECLAST (ZOLEDRONIC ACID-MANNITOL*11/25/2016 14 - Other: See Comments Comments: Muscle aches Date Reviewed: 11/11/2017 Reviewed by: Sahra Win) Pam - Fully Assessed Reason for Visit: Established Patient [175] Primary Visit Diagnosis:Malignant neoplasm of central portion of left breast in female, estrogen receptor positive (HCC) [C50.112, Z17.0] Other Visit Diagnosis:Lump or mass in breast [N63.0] Order(s):[facility] [[id number]] Order #: [id number] FUTURE BREAST LTD LT [[id number]] Order #: [id number] FUTURE Follow-up and Disposition History Recorded Prescriptions as of 11/11/2017 Sig: ATORVASTATIN 80 MG TABLET RANITIDINE 75 MG TABLET DAILY TRAMADOL 50 MG TABLET VALSARTAN 160 MG-HYDROCHLOROT* DAILY GABAPENTIN 100 MG CAPSULE Take 100 mg by mouth once mary* CLOPIDOGREL 75 MG TABLET Take 75 mg by mouth once olga* FLOVENT HFA 110 MCG/ACTUATION* Inhale 1 Puff as instructed t* ASMANEX HFA 100 MCG/ACTUATION* Inhale 2 Puffs as instructed * CHOLECALCIFEROL (VITAMIN D3) * Take 1,000 Units by mouth onc* CYANOCOBALAMIN (VIT B-12) 100* Take 100 mcg by mouth once da* HYDROCORTISONE VALERATE 0.2 %* Apply 1 application to affect* [id number] TABLET Take 1 tablet by mouth once d* ANASTROZOLE 1 MG TABLET Take 1 tablet by mouth once d* GABAPENTIN 300 MG CAPSULE Take 300 mg by mouth daily at* ALLOPURINOL 300 MG TABLET Take 300 mg by mouth once mary* CARVEDILOL 12.5 MG TABLET Take 1 tablet by mouth twice * FUROSEMIDE 40 MG TABLET Take 40 mg by mouth once olga* POTASSIUM CHLORIDE ER 10 MEQ * Take 10 mEq by mouth once mary* NITROGLYCERIN 0.4 MG SUBLINGU* Dissolve 1 tablet under the t* Problem List As Of Date 11/11/2017 Noted Resolved Edema [R60.9] INVALID FOR* Hypertension [I10] INVALID FOR* Shortness of breath [R06.02] INVALID FOR* Chest pain [R07.9] INVALID FOR* Malignant neoplasm of central portion of left b*INVALID FOR* Visit Notes: >> Bernice Figueroa RN, RN Luzmaria Nov 11, 2017 10:06 AM Status: Signed Pt. reports fatigue since stroke in June 2017. Also reports finding lumps in left breast. Would like Sahra to examine. Encounter Status:Closed by SAHRA OROZCO CNP on 11/11/17 RE-EVALUATION - PT (1) Observed: 09/03/2017 Status: F Source: [place] 11:30 AM [facility] REPOSITORY [facility] [address] [place], [place] [address] Fax REEVALUATION / MEDICARE RECERTIFICATION PHYSICAL THERAPY MR#: [id number] Acct: [id number] Name: CIARA SAWYER I Rep #: [id number] : 1945 72 From: Pooja Yoon PT, Cert. MDT Referring Dr.: Mirlande Arellano MD Status: REG RCR Insurance: MEDICARE PART A B WPS FOR LIFE Mirlande Arellano, It has been my pleasure to treat CIARA SAWYER over the last 18 visits for ISCHEMIC STROKE OF FRONTAL LOBE, SLURRED SPEECH AND CHF.. Please see the progress note below for an update on the physical therapy plan of care! Subjective: PATIENT REPORTS HER BALANCE IS GETTING MUCH BETTER. REPORTS SHE IS ONLY USING THE CANE 10 TO 20% OF THE TIME NOW. SHE REPORTS THAT OVER THE PAST MONTH HER PAIN HAS CONTINUED TO IMPROVE IN HER FOOT AND LOWER BACK. PATIENT REPORTS THE CANE HELPS HER KNEE AND FOOT PAIN AND HELPS HER WHEN SHE IS WOBBLY LIKE IN THE MORNINGS BUT SHE DOESN'T USE IT MORE BECAUSE SHE DOESN'T WANT TO DEPEND ON IT. PATIENT REPORTS HER GOAL IS TO CONTINUE WATER EX INDEP'LY HERE AT [facility] WHEN WE RECOMMEND IT. EXCITED TO REPORT THAT SHE CAN NOW WALK ACROSS THE POOL WITHOUT HANGING ON TO THE SIDE. Objective/Function: PATIENT HAS PATIENT IS MAKING SLOW PROGRESS IN TERMS OF BECOMING MORE INDEP WITH PROPER POSTURE CONTROL WITH EX IN THE WATER. NO SIGNIFICANT CHANGE IN LUMBAR OSWESTRY SCORE SINCE LAST RE-CHECK. SHE IS STILL TOLERATING PRE IN THE WATER. UPON EXAM TODAY: PATIENT AMBULATES INDEP'LY INTO PT WITH SLOW CADANCE WITHOUT ANY ASSISTIVE DEVICES AND NO LOSS OF BALANCE. DECREASED CADANCE, AND FAIR DYNAMIC BALANCE WITHOUT AD. NO SOB NOTED AFTER GAIT X APPROX 300 FEET IN TO PT TODAY. HER STATIC STANDING BALANCE IS FAIR PLUS. SHE IS UNABLE TO SLS ON EITHER LEG WITHOUT UE ASSIST FOR MORE THAN A FEW SECONDS AND WEIGHT BEARING ON RIGHT LE DID NOT INCREASE FOOT PAIN TODAY. Motor deficit: AUGUSTO LE STRENGTH HAS IMPROVED: LEFT HIP 4/5, KNEE EXT 5/5, KNEE FLEX 5/5, ANKLE DORSIFLEXION 5/5. RIGHT HIP 4-/5, KNEE EXT 4/5, KNEE FLEX 4/4, ANKLE DORSIFLEX 5/5. Sensory deficit: AUGUSTO LE LIGHT TOUCH SENSATION IS INTACT AND SYMMETRICAL WITH TESTING TODAY. ROM deficit: WFL. Dural Signs: NEGATIVE AUGUSTO LE'S. TRANSFER SIT TO STAND: INDEP WITHOUT UE ASSIST BUT STILL DIFFICULT AND NO LOSS OF BALANCE. Lumbar mvmt loss: flex - NIL. ext - MOD. R SG - MIN. L SG - MOD. PATIENT DENIES INCREASED PAIN WITH LUMBAR ROM TESTING TODAY. *RECOMMENDED USE OF CANE AT ALL TIMES TO PATIENT AGAIN FOR SAFETY* Plan Plan: TREATMENT WILL CONTINUE/PLAN OF CARE TO CONTINUE THIS TREATMENT IS MEDICALLY NECESSARY BECAUSE PATIENT HAS LBP, DECREASED LUMBAR ROM, DECREASED CORE STRENGTH, AND DECREASED BALANCE THAT IS CONTINUING TO IMPROVE WITH PHYSICAL THERAPY. SHE ALSO STILL HAS DECREASED STANDING AND WALKING FUNCTION BUT SHE IS MAKING SLOW PROGRESS TOWARD ALL PT GOALS. RECOMMEND CONTINUED AQUATIC THERAPY DECREASING TO ONCE A WEEK WHILE PATIENT STARTS INDEP EX 2X'S A MONTH WITH MEMBERSHIP TO CONTINUE TO CUE FOR POSTURE CORRECTION AND PROGRSS THER EX TOLERATED. PATIENT IS AGREEABLE WITH THIS POC. Goals Goal 1:: INDEP AND SAFE GAIT ON ALL SURFACES WITH LEAST ASSISTIVE DEVICE Goal Time Frame: 4-6 Weeks Goal Progress: Progressing Goal 2:: DECREASE C/O LOW BACK AND RIGHT LE SX'S. Goal Time Frame: 4-6 Weeks Goal Progress: Progressing Goal 3:: RETURN TO PRIOR LEVEL OF FUNCTION BEFORE THE STROKE Goal Time Frame: 4-6 Weeks Goal 4:: INDEP WATER EX PROGRAM. Goal Time Frame: 4-6 Weeks Goal Progress: Progressing Anticipated Interventions Patient/Client Instruction: Educate patient on: Condition, Plan of Care, Risk Factors, Benefits of Fitness Program For the Purpose of:: To improve self management Therapeutic Exercise to Include: Strength training, Endurance training, Balance training, Body mechanics, Postural training, Flexibilty training, Gait and locomotor training, In an aquatic setting, Dynamic Lumbar Stabilization For the Purpose of:: To improve ability of physical actions for home/community/work/leisure, To improve gait and locomotor functions Please do not hesitate to contact me at [phone] by phone or if you have questions or concerns regarding this new plan of care! Sincerely, Pooja Yoon <Electronically signed by Pooja Yoon PT, Cert. T> 09/03/17 1130 CC: Mirlande Arellano MD KEV Signed For Medicare only, by signing this I certify the plan of care. Physicians Signature Date MA MAMMOGRAM Observed: 08/19/2017 Status: F Source: [facility]ATER[facility] 10:30 AM FOUNDATION REPOSITORY GALE ORIGINAL FROM: [facility] [address] [place] [id number] PROCEDURE FOR: CIARA SAWYER [address] [place] [address] Home: PID#: [id number] Exam#: [id number] : 1945 Age: 72 TO: SAHRA OROZCO [facility] [address] [place] [address] #[id number] DIGITAL DIAGNOSTIC MAMMOGRAM 3D/2D WITH CAD WITH TANGENTIAL MEDIOLATERAL OBLIQUE CRANIOCAUDAL: 08/19/2017 Comparison is made to exams dated: 10/14/2016 mammogram, 09/19/2013 mammogram, and 12/03/2016 localization - [facility]. The tissue of both breasts is predominately fatty. Current study was also evaluated with a Computer Aided Detection (CAD) system. Prior mass in the left breast has been removed. There are post operative changes and post radiation changes in the left breast. Examination indicates surgical clips in the left breast. No significant masses, calcifications, or other findings are seen in either breast. IMPRESSION: BENIGN There is no mammographic evidence of malignancy. A follow- up mammogram in 12 months is recommended. Arnie Divya Bull M.D. tbp/:08/19/2017 10:53:24 copy to: MIRLANDE ARELLANO MD, ph: [phone] copy to: ОЛЬГА GONZALEZ MD, [facility] SUR[facility]ERY, ph: [phone], fax: [phone] Operating Systems Specialist: JOE CABALLERO RT(R), [facility] letter sent: Normal BI-RADS 1&2 Mammogram BI-RADS: 2 Benign PROGRESS Observed: 08/11/2017 Status: COMPLETED Source: [place] 10:04 AM [facility] [place] REPOSITORY HNO ID: [id number] Author: Sahra Orozco Service: (none) Author Type: Nurse Practitioner Type: Progress Notes Filed: 08/12/2017 8:46 AM Note Text: Chief Complaint Patient presents with: Established Patient HPI: Ciara Sawyer is a 72 year old female who presents here today for follow up breast cancer. Per Dr. Reyes's previous note: H/o HTN and CHF (?etiology) who was found to have an abnormality in the left breast on recent screening mammogram. ?? Patient underwent a bilateral digital screening mammogram in October 2016. There was a 6 mm irregular density noted in the left breast appearing to be indeterminate. ?? Patient underwent a subsequent ultrasound study on 10/20/2016. There was a 6 mm oval mass with an indistinct margin observed in the left breast at 2:00 anterior depth. It was hypoechoic. It correlated with the mammogram findings. ?? The patient was referred to Dr. lara who performed a core needle biopsy on 11/04/2016. ?? The pathology demonstrated an invasive well-differentiated ductal carcinoma. ER/PA were both positive at 90% and 80% respectively. HER-2 was quantified at 2+. ?? Underwent a left-sided lumpectomy with left axillary sentinel lymph node dissection on 12/03/2016. The final pathology demonstrated that within the lumpectomy specimen there was an 8 mm invasive ductal carcinoma. It was grade 1. DCIS was absent. There was a unifocal tumor. Margins were free of carcinoma. All were greater than 1 cm. 3 lymph nodes were retrieved. All were negative for disease. ? ? RADIATION:01/26/17 to 02/16/17 ? ? Current therapy:arimidex Began 2017. ? I had a stroke on June 18. I have to really think about what I'm thinking before I say it. I have to be careful when I drink liquids. No other effects from stroke. ? Appetite:it's not great. Energy level:I'd say it's fair. Denies fevers or recent illness. Resp:denies cough or sob at rest, occ. simons with steps h/o asthma per pt. Cardiac:denies chest pain/palpitations GI:denies abd pain, n/v, I've had diarrhea for the past few days. It occurs at random times-not associated with meals. :denies dysuria/hematuria Extrem:chronic back/R knee/R foot-followed by CPM. Endo:+ hot flashes I will start to feel warm and then I sweat. occurs a couple times per week. Neuro:denies symptoms of neuropathy Skin:denies rashes/lesions Heme:denies bleeding The ROS is otherwise negative. Past medical history, appointments, medications, allergies reviewed. No changes. EXAM: BP 127/80 Pulse 71 Temp 36.2 ?C (97.1 ?F) (Temporal Artery) Wt 91.6 kg (202 lb) BMI 37.86 kg/m? APPEARANCE Well appearing, alert, in no acute distress, well-hydrated, well nourished. HEART RRR with normal S1 and S2, no murmurs LUNG clear to auscultation LYMPH NODES No cervical lymphadenopathy, No supraclavicular lymphadenopathy and No axillary lymphadenopathy. BREAST FEMALE R no mass/nodule, L mild radiation erythema, scar to L upper/outer-slight thickened area laterally-stable ABDOMEN bowel sounds normoactive, no bruits, soft, non-tender, non-distended, without organomegaly or palpable masses EXTREMITIES trace edema BLE NEURO Awake, alert and oriented x 3, Normal gait and No involuntary motions. SKIN Skin color, texture, turgor normal, no suspicious rashes or lesions ASSESSMENT/PLAN: 1. Malignant neoplasm of central portion of left breast in female, estrogen receptor positive (HCC) - ICD9: 174.1, V86.0, ICD10: C50.112, Z17.0 pT1b pN0sln MX ER/PA positive, HER2 negative by FISH invasive ductal carcinoma of the left breast. - No other concerning findings on exam. - Tolerating arimidex well. Continue. - Dx mamm was due in July-at [facility]. Pt. can not remember if she had this done. We have no record of it being done. Will call medical records at [facility]. - Follow up in 3 months-pending mammogram results. - Pt. aware to call office with any questions/concerns. The patient indicates understanding of these issues and agrees with the plan. Sahra Orozco APRN.CNP CNOVSP Observed: 08/11/2017 Status: COMPLETED Source: [place] 10:00 AM [facility] REPOSITORY Visit (SP) Office (REZA) SANDIEDYLANCIARA HERNANDEZ I ([id number]) 1945 F Date Time Provider Department 08/11/17 10:00 AM SAHRA OROZCO (FIOR) REZA During your visit today, we recorded the following information about you: Temperature Pulse Blood pressure Weight 97.1 degrees 71/minute 127/80 91.6 kg Sahra Orozco APRN.CNP 08/12/2017 8:46 AM Signed Chief Complaint Patient presents with: Established Patient HPI: Ciara Jacinto Sandiedylansugar is a 72 year old female who presents here today for follow up breast cancer. Per Dr. Reyes's previous note: H/o HTN and CHF (?etiology) who was found to have an abnormality in the left breast on recent screening mammogram. ?? Patient underwent a bilateral digital screening mammogram in October 2016. There was a 6 mm irregular density noted in the left breast appearing to be indeterminate. ?? Patient underwent a subsequent ultrasound study on 10/20/2016. There was a 6 mm oval mass with an indistinct margin observed in the left breast at 2:00 anterior depth. It was hypoechoic. It correlated with the mammogram findings. ?? The patient was referred to Dr. lara who performed a core needle biopsy on 11/04/2016. ?? The pathology demonstrated an invasive well-differentiated ductal carcinoma. ER/PA were both positive at 90% and 80% respectively. HER- 2 was quantified at 2+. ?? Underwent a left-sided lumpectomy with left axillary sentinel lymph node dissection on 12/03/2016. The final pathology demonstrated that within the lumpectomy specimen there was an 8 mm invasive ductal carcinoma. It was grade 1. DCIS was absent. There was a unifocal tumor. Margins were free of carcinoma. All were greater than 1 cm. 3 lymph nodes were retrieved. All were negative for disease. ? ? RADIATION:01/26/17 to 02/16/17 ? ? Current therapy:arimidex Began 2017. ? I had a stroke on June 18. I have to really think about what I'm thinking before I say it. I have to be careful when I drink liquids. No other effects from stroke. ? Appetite:it's not great. Energy level:I'd say it's fair. Denies fevers or recent illness. Resp:denies cough or sob at rest, occ. simons with steps h/o asthma per pt. Cardiac:denies chest pain/palpitations GI:denies abd pain, n/v, I've had diarrhea for the past few days. It occurs at random times-not associated with meals. :denies dysuria/hematuria Extrem:chronic back/R knee/R foot-followed by CPM. Endo:+ hot flashes I will start to feel warm and then I sweat. occurs a couple times per week. Neuro:denies symptoms of neuropathy Skin:denies rashes/lesions Heme:denies bleeding The ROS is otherwise negative. Past medical history, appointments, medications, allergies reviewed. No changes. EXAM: BP 127/80 Pulse 71 Temp 36.2 ?C (97.1 ?F) (Temporal Artery) Wt 91.6 kg (202 lb) BMI 37.86 kg/m? APPEARANCE Well appearing, alert, in no acute distress, well- hydrated, well nourished. HEART RRR with normal S1 and S2, no murmurs LUNG clear to auscultation LYMPH NODES No cervical lymphadenopathy, No supraclavicular lymphadenopathy and No axillary lymphadenopathy. BREAST FEMALE R no mass/nodule, L mild radiation erythema, scar to L upper/outer-slight thickened area laterally-stable ABDOMEN bowel sounds normoactive, no bruits, soft, non-tender, non-distended, without organomegaly or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 POOR BUT PATIENT IS TOLERATING PRE IN THE POOL AND IS INDEP WITH A POOL PROGRAM. LUMBAR OSWESTRY HAS IMPROVED FROM 28 TO 18. - Goals Goal 1:: DECREASE C/O BACK AND AUGUSTO LE SX'S. Goal Progress: Goal Met Goal 2:: IMPROVE PERSONAL CARE, LIFITNG, WALKING, SITTING, STANDING, SLEEP, SOCIAL LIFE, TRAVEL AND HOMEMAKING FUNCTION Goal Progress: Goal Met Goal 3:: INSTRUCT IN PROPHYLAXIS Goal Progress: Goal Met Goal 4:: INDEP AND SAFE GAIT ON ALL SURFACES WITH LEAST ASSISTIVE DEVICE - Plan Plan: D/C TO INDEP POOL PROGRAM. PATIENT IS AGREEABLE. - D/C Information If there are questions or concerns regarding this patient's physical therapy, please feel free to call me at [phone]. Thank you for the referral of this patient. Sincerely, Pooja Yoon <Electronically signed by Pooja Yoon PT, Cert. MDT> 06/28/17 1313 CC: Daniel Guzman; Mirlande Arellano MD KEV Signed 12 LEAD ELECTROCARDIOGRAM Observed: 06/27/2017 Status: F Source: [place] 8:57 PM [facility] Cardiovascular Services [address] [place] [address] 12 Lead EKG 06/18/17 2157 MR#: [id number] Acct: [id number] Name: CARROLLCIARA I Rep #: [id number] : 1945 71 From: Augusto Paula MD Attending Dr: Reed Cummings DO Status: DIS IN Ordering Dr: sAaf Mullins DO Date: 06/18/17 Location: [facility] Sex: F C Admitted: 06/18/17 Test Reason : ADMIT EKG Blood Pressure : / mmHG Vent. Rate : 061 BPM Atrial Rate : 061 BPM P-R Int : 210 ms QRS Dur : 134 ms QT Int : 460 ms P-R-T Axes : 038 035 019 degrees QTc Int : 463 ms Sinus rhythm with 1st degree A-V block Right bundle branch block Abnormal ECG When compared with ECG of 18-OCT-2013 17:48, Right bundle branch block is now Present Confirmed by AUGUSTO PAULA ([id number]), medical transcription editor KAVYA HERRERA ([id number]) on 06/24/2017 3:00:04 PM Referred By: Reed Cummings Confirmed By:AUGUSTO PAULA 06/24/17 1500 Date Augusto Paula MD CC: Kaylene Mullins; Reed Cummings DO; Mirlande Arellano MD Signed DISCHARGE SUMMARY Observed: 06/20/2017 Status: F Source: [place] 9:16 PM [facility] Medical Records Department [address] [place] [id number] Discharge Summary 06/20/17 211 MR#: [id number] Acct: [id number] Name: CIARA SAWYER I Rep #: [id number] : 1945 71 From: Reed Cummings DO PCP: Mirlande Arellano MD Status: DIS IN Y Location: [place] [address]-1 Discharge Date and Diagnosis Date of Admission: 06/18/17 Date of Discharge: 06/20/17 - Primary Discharge Diagnosis #1 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 Patient was directly admitted to PCU, she was maintained on aspirin, statin, and diagnostic testing was performed and she was evaluated by PT OT and neurology. MRI of the brain showed an acute right frontal lobe ischemic stroke in the right MCA distribution, patient was also seen by speech therapy due to dysarthria. Patient did well during her hospital stay, she was able to be discharged home without the need for chcf placement. Patient's blood pressure meds were adjusted at the time of discharge, she was to follow-up with her PCP to arrange for speech and physical therapy and follow- up with neurology as an outpatient. On 06/20/17, patient was seen and examined and felt to be in stable condition for discharge home Discharge Activity: Return to Normal Activity Weight Bearing Status: Weight bearing as tolerated Home Medications: Medications to take at Discharge Carvedilol [Coreg (Beta Philippe)] 12.5 mg PO BID 10/18/13 Gabapentin [Neurontin] 300 mg PO QHS 10/18/13 Tramadol HCl 50 mg PO TID PRN PRN 10/18/13 Allopurinol [Zyloprim] 100 mg PO DAILY 03/29/14 Potassium Chloride [Klor-Con M10] 10 meq PO DAILY 03/29/14 Mometasone Furoate [Asmanex 220 mcg Twisthaler] 2 puff INHALATION DAILY 12/20/14 Ranitidine HCl [Zantac 75] 75 mg PO DAILY 12/20/14 Acetaminophen 650 mg PO Q4H PRN PRN 06/18/17 Cyanocobalamin (Vitamin B-12) 100 mcg PO DAILY 06/18/17 Gabapentin [Neurontin] 100 mg PO BID 06/18/17 Hydrocortisone 2.5% Crm [Hytone] 1 applicatio TOPICAL DAILY PRN 06/18/17 Multivitamins,Ther W-Minerals [Multivitamin With Minerals] 1 tablet PO DAILY 06/18/17 Atorvastatin Calcium [Lipitor] 80 mg PO DAILY #30 tab 06/20/17 Clopidogrel Bisulfate [Plavix] 75 mg PO DAILY #30 tab 06/20/17 Valsartan/Hydrochlorothiazide [Diovan Hct 160-12.5 mg Tab] 1 ea PO DAILY #30 tab 06/20/17 Following Prescrptions Were Given to Patient: Atorvastatin Calcium [Lipitor] 80 mg PO DAILY #30 tab Clopidogrel Bisulfate [Plavix] 75 mg PO DAILY #30 tab Valsartan/Hydrochlorothiazide [Diovan Hct 160-12.5 mg Tab] 1 ea PO DAILY #30 tab Primary Care Physician: Mirlande Arellano MD [Primary Care Provider] - Please follow up with your Primary Care Physician in: this week-call office to set up physical therapy and speech therapy Please Follow Up With: Greg Gayle MD When: in 3 weeks [phone] Disposition: Home Minutes spent on discharge:: 35 Patient Condition:: Stable Medical Necessity - Tobacco Use Smoking Status: Never smoker Tobacco Use: Non-smoker Meaningful Use Info Meaningful Use Diagnoses (Choose all that apply): Ischemic CVA - CVA Therapy Assessed for PT,OT and/or ST?: Yes - Ischemic Stroke Antithrombotic order at d/c?: Yes Dx of Atrial fib/flutter?: No Anticoagulant at discharge?: No Reason anticoagulant not ordered: Treatment not Indicated Statins at discharge?: Yes Primary Dx Acute Ischemic CVA?: Yes IV tPA ordered during stay?: No Reason IV t-PA not ordered: Treatment not Indicated Code Visit Inpatient E AND M: 05844 Disch Hosp 06/20/172115 <Electronically signed by Reed Cummings DO> Date Reed Cummings DO Cosigner Signature (if applicable): Date CC: Reed Cummings DO; Mirlande Arellano MD Signed DISCHARGE INSTRUCTION Observed: 06/20/2017 Status: F Source: [place] 11:55 AM [facility] Medical Records Department [address] [place] [address] Instructions for Home/Discharge Instructions 06/20/17 1151 MR#: [id number] Acct: [id number] Name: CIARA SAWYER I Rep #: [id number] : 1945 71 From: Reed Cummings DO PCP: Mirlande Arellano MD Status: ADM IN - Discharge Diagnoses Current Active Problems: Current Active and Chronic Problems Breast CA (Acute) Ischemic cerebrovascular accident (CVA) (Acute) HTN (hypertension) (Chronic) Chronic pain syndrome (Acute) GERD (gastroesophageal reflux disease) (Acute) Osteoarthritis (Acute) Obesity (Acute) Asthma (Acute) Gout (Acute) Hyperuricemia (Acute) Dehydration (Acute) You will use the following diet at home:: No restrictions Your food should be the consistency of: Regular Your liquids should be the consistency of: Regular/Thin Discharge Activity: Return to Normal Activity Weight Bearing Status: Weight bearing as tolerated Allergies/Adverse Reactions: Allergies Gadolinium-MRI Contrast Medium [MRI] Allergy (Verified 06/18/17 23:02) Chest tightness ibandronate sodium [From Boniva] Allergy (Verified 03/29/14 13:04) Rash levofloxacin [From Levaquin] Allergy (Verified 03/29/14 13:04) Swelling Penicillins Allergy (Verified 03/29/14 12:48) Rash mannitol [From Reclast] Adverse Reaction (Verified 03/29/14 13:12) Pain in joints water for injection,sterile [From Reclast] Adverse Reaction (Verified 03/29/14 13:12) Pain in joints zoledronic acid [From Reclast] Adverse Reaction (Verified 03/29/14 13:12) Pain in joints LAMBERTO Allergy (Uncoded 12/20/14 15:26) Other ALL LAMBERTO'S NOVACAINE, MARCAINE, BUPIVACAINE Medications to take at Discharge Carvedilol [Coreg (Beta Philippe)] 12.5 mg PO BID 10/18/13 Gabapentin [Neurontin] 300 mg PO QHS 10/18/13 Tramadol HCl 50 mg PO TID PRN PRN 10/18/13 Allopurinol [Zyloprim] 100 mg PO DAILY 03/29/14 Potassium Chloride [Klor-Con M10] 10 meq PO DAILY 03/29/14 Mometasone Furoate [Asmanex 220 mcg Twisthaler] 2 puff INHALATION DAILY 12/20/14 Ranitidine HCl [Zantac 75] 75 mg PO DAILY 12/20/14 Acetaminophen 650 mg PO Q4H PRN PRN 06/18/17 Cyanocobalamin (Vitamin B-12) 100 mcg PO DAILY 06/18/17 Gabapentin [Neurontin] 100 mg PO BID 06/18/17 Hydrocortisone 2.5% Crm [Hytone] 1 applicatio TOPICAL DAILY PRN 06/18/17 Multivitamins,Ther W-Minerals [Multivitamin With Minerals] 1 tablet PO DAILY 06/18/17 Atorvastatin Calcium [Lipitor] 80 mg PO DAILY #30 tablet 06/20/17 Clopidogrel Bisulfate [Plavix] 75 mg PO DAILY #30 tablet 06/20/17 Valsartan/Hydrochlorothiazide [Diovan Hct 160-12.5 mg Tab] 1 each PO DAILY #30 tablet 06/20/17 The following prescriptions were given: Atorvastatin Calcium [Lipitor] 80 mg PO DAILY #30 tablet Clopidogrel Bisulfate [Plavix] 75 mg PO DAILY #30 tablet Valsartan/Hydrochlorothiazide [Diovan Hct 160-12.5 mg Tab] 1 each PO DAILY #30 tablet Primary Care Physician: Mirlande Arellano MD [Primary Care Provider] - Please follow up with your Primary Care Physician in: this week-call office to set up physical therapy and speech therapy Please Follow Up With: Greg Gayle MD When: in 3 weeks [phone] 06/20/17 9366 <Electronically signed by Reed Cummings DO> Date Reed Cummings DO CC: Greg Gayle MD; Mirlande Arellano MD CONSULTATION Observed: 06/19/2017 Status: F Source: [place] 2:22 PM [facility] Medical Records Department [address] [place] [address] Consultation 06/19/17 1334 MR#: [id number] Acct: [id number] Name: CIARA SAWYER I Rep #: [id number] : 1945 71 From: Greg Gayle MD PCP: Mirlande Arellano MD Status: ADM IN Location: [place] [id number] Reason for Consult Date of Consultation: 06/19/17 Reason for Consultation: cva History of Present Illness: The patient is a 71 year old F yesterday am noted dizzyness, left arm weakness and slurred speech. much improved today. not baseline. reportedly mri showed stroke. dosent take asa daily. nonsmoker for many years. reports bp elevated at home lately, associated with significant stress. reports sbp around 148-168. no snoring or eds. The patient is a 71 year old F with a past medical history of hyperuricemia, gout, osteoarthritis, asthma, hypertension, enlarged heart with history of CHF, heart murmur, chronic pain syndrome, GERD, endometriosis (status post KENNETH/BSO), diverticulosis and left breast cancer diagnosed in the fall 2016 (treated with lumpectomy and radiation) who presented to [facility] on 06/18/17 c/o left facial droop, slurred speech, numbness and weakness of the left upper extremity and left leg. A CT scan of the brain showed no acute findings. Lab was remarkable for an elevated BUN and creatinine. She was transferred to [facility] for a neurology consult and MRI. She did not receive aspirin in the emergency room and she did tell me that she has not been taking the 81 mg of ASA prescribed to her daily. She has no prior history of a stroke. She tells me that she was diagnosed many years ago with an enlarged heart and congestive heart failure however a stress test done at [facility] in 2014 showed an ejection fraction of 76% with no evidence of ischemia. EKG sent with her from the emergency room shows normal sinus rhythm with a right bundle branch block and possible remote inferior wall myocardial infarction with Q waves in 3 and aVF. There are no suspicious ST or T-wave changes. She was admitted to a monitored bed on PCU with diagnosis of acute ischemic CVA. He is not a candidate for TPA as the symptoms started early this morning. TIA/CVA protocol was initiated. Past Medical History Past Medical History (Chronic Problems): Chronic Problems HTN (hypertension) (Chronic) Allergies Gadolinium-MRI Contrast Medium [MRI] Allergy (Verified 06/18/17 23:02) Chest tightness ibandronate sodium [From Boniva] Allergy (Verified 03/29/14 13:04) Rash levofloxacin [From Levaquin] Allergy (Verified 03/29/14 13:04) Swelling Penicillins Allergy (Verified 03/29/14 12:48) Rash mannitol [From Reclast] Adverse Reaction (Verified 03/29/14 13:12) Pain in joints water for injection,sterile [From Reclast] Adverse Reaction (Verified 03/29/14 13:12) Pain in joints zoledronic acid [From Reclast] Adverse Reaction (Verified 03/29/14 13:12) Pain in joints LAMBERTO Allergy (Uncoded 12/20/14 15:26) Other ALL LAMBERTO'S NOVACAINE, MARCAINE, BUPIVACAINE Home Medications: Ambulatory Orders Medication Instructions Recorded Carvedilol [Coreg (Beta Philippe)] 12.5 mg PO BID 10/18/13 Furosemide [Lasix] 80 mg PO DAILY 10/18/13 Gabapentin [Neurontin] 300 mg PO QHS 10/18/13 Surgical History: cholecystectomy, hysterectomy - KENNETH with BSO for endometriosis, total knee arthroplasty - Left [address] Pierson, - - Lumpectomy left breast November 2016 Psychiatric History: No pertinent psych hx [employer] History: endometriosis Lives: Spouse/ Significant Other Smoking Status: Never smoker Tobacco Use: Non-smoker Alcohol: None Drugs: None - *Family History Maternal History Items: - - Her mother had cerebrovascular disease and cardiovascular disease. Paternal History Items: - - Father had heart disease Sibling History Items: Cancer - She has a brother who is secondary to cancer but she does not know the primary. Review of Systems Constitutional: Denies: Chills, Fever, Weight Change HEENT: Denies: Head Aches, Sinus Congestion, Sinus Drainage Cardiovascular: Denies: Chest Pain, Palpitations Respiratory: Denies: Cough, Shortness of breath at rest, Sputum production Gastrointestinal: Denies: Abdominal Pain, Nausea, Vomiting Genitourinary: Denies: Dysuria Musculoskeletal: Denies: Joint Pain, Joint Tenderness Skin: Denies: Rash, Wounds Neurological: Denies: Numbness, Tingling, Focal weakness Psychiatric: Denies: Anxiety, Depression, Homicidal Ideations, Suicidal Ideations Hematologic/ Lymphatic: Denies: Easy Bruising, Easy Bleeding Patient Problems: Active and Suspected Problems Breast CA (Acute) Ischemic cerebrovascular accident (CVA) (Acute) Chronic pain syndrome (Acute) GERD (gastroesophageal reflux disease) (Acute) Osteoarthritis (Acute) Obesity (Acute) Asthma (Acute) Gout (Acute) Hyperuricemia (Acute) Dehydration (Acute) - Physical Exam General: Alert, Oriented x3, Cooperative HEENT: Atraumatic, PERRLA, EOMI, Normocephalic Neck: Supple, No JVD, Negative Carotid Bruits Lungs: Clear to auscultation, Normal air movement Cardiovascular: Regular rate, No murmurs Abdomen: Bowel Sounds Present, Soft, Non Tender Extremities: No edema, Capillary Refill Less than 3 Seconds Skin: No rashes, No breakdown Musculoskeletal: No Tenderness to Palpation of Joints or Extremities Neurological: Cranial nerves II-XII grossly intact, - - mild left discoord and left central vii. Psych/Mental Status: Normal Affect, Appropriate Vital Signs Temp Pulse Resp BP Pulse Ox 36.8 C 60 18 137/67 H 94 06/19/17 12:37 06/19/17 12:37 06/19/17 12:37 06/19/17 12:37 06/19/17 12:37 Oxygen Flow Rate (L/min) 2 Oxygen Delivery Method Room Air Weight: 89.4 kg Body Mass Index (BMI) 37.2 Intake and Output for Last 24 Hours Intake Total 273 / 273 2352 / 2352 Balance 273 / 273 2352 / 2352 Laboratory Tests Past 24 Hrs WBC RBC Current Home Med List Medication Instructions Recorded Confirmed Type Carvedilol [Coreg (Beta Philippe)] 12.5 mg PO BID 10/18/13 12/20/14 History Current Medications Generic Name Dose Route Start Last Admin Trade Name Freq PRN Reason Stop Dose Admin Acetaminophen 650 mg 06/18/17 19:53 Tylenol PO mri reviewed, acute small right mca distribution infarct in temporal lobe mra no significant stenosis, left swatch folder stenosis incidental Assessment/Plan Active and Suspected Problems Breast CA (Acute) Ischemic cerebrovascular accident (CVA) (Acute) Chronic pain syndrome (Acute) GERD (gastroesophageal reflux disease) (Acute) Osteoarthritis (Acute) Obesity (Acute) Asthma (Acute) Gout (Acute) Hyperuricemia (Acute) Dehydration (Acute) acute right mca distribution infarct, small, improved sx. swatch folder stenosis incidental bp control statin echo: nl tele pt/ot/sp dc when ambulating safely with op followup 06/19/17 1422 <Electronically signed by Greg aGyle MD> Date Greg Gayle MD [facility]ign Signature (if applicable): Date CC: Reed Cummings DO; Greg Gayle MD; Mirlande Arellano MD Signed ECHOCARDIOGRAM COMPLETE Observed: 06/19/2017 Status: F Source: [place] 12:44 PM [facility] Cardiovascular Services [address] [place] [address] Echo Complete 06/19/17 1054 MR#: [id number] Acct: [id number] Name: CIARA SAWYER I Rep #: [id number] : 1945 71 From: Josr Gomez MD Attending Dr: Reed Cummings DO Status: ADM IN Ordering Dr: Asaf Mullins DO Date: 06/18/17 Location: [facility] Sex: F C Admitted: 06/18/17 Reason For Study: TIA/CVA Procedure This was a 2D Doppler, Color Flow transthoracic echocardiogram. Exam performed portable in patient room. Left Ventricle Normal LV size. Left ventricular systolic function is normal. The estimated ejection fraction is 60 %. Transmitral diastolic flow velocities suggest mild (stage 1) diastolic dysfunction (reversed pattern). No regional wall motion abnormalities noted. Right Ventricle Normal RV size. Normal systolic function. Atria Normal left atrium. Normal right atrium. Bubble contrast study negative for right to left interatrial shunt. Mitral Valve Normal mitral valve. Mild (1+) eccentric mitral valve insufficiency. Tricuspid Valve Normal tricuspid valve. Mild (1+) tricuspid valve insufficiency. Pulmonary artery systolic pressure is 32 mmHg. Aortic Valve Normal aortic valve. Mild (1+) eccentric aortic valve insufficiency. Pulmonic Valve Normal pulmonic valve. Great Vessels Normal aortic root. The pulmonary artery is normal size. Normal inferior vena cava. Pericardium/Pleural No pericardial effusion. Medication Performed a rapid injection of agitated mix of 9 cc saline and 1cc air to assess for atrial septal defect. MMode/2D Measurements AND Calculations LVIDd: 4.0 cm IVSd: 1.1 cm Ao root diam: 3.4 cm LVIDs: 2.6 cm LVPWd: 1.2 cm LA dimension: 4.8 cm RVDd: 2.8 cm FS: 33.3 % LAV(MOD-bp): 47.9 ml LAV(MOD-bp) Indexed: 25.5 ml/m2 LA A4 area: 14.8 cm2 RA A4 area: 14.0 cm2 LAV(MOD-sp2): 60.2 ml LAV(MOD-sp4): 36.3 ml Doppler Measurements AND Calculations MV E max ayanna: 74.1 cm/sec Lat Peak E' Ayanna: 6.0 cm/sec Med Peak E' Ayanna: 2.9 cm/sec MV A max ayanna: 127.9 cm/sec E/E' lat: 12.3 E/E' med: 25.5 MV E/A: 0.58 Ao V2 max: 164.4 cm/sec AI max ayanna: 383.5 cm/sec LV V1 max: 123.7 cm/sec Ao max P.8 mmHg AI max P.8 mmHg LV V1 max P.1 mmHg Ao V2 mean: 112.8 cm/sec AI dec slope: 224.4 cm/sec2 Ao mean P.6 mmHg AI P1/2t: 500.6 msec Ao V2 VTI: 37.1 cm PA V2 max: 92.3 cm/sec TR max ayanna: 267.1 cm/sec TR max P.6 mmHg Interpretation Summary Normal LV size. Left ventricular systolic function is normal. The estimated ejection fraction is 60 %. Transmitral diastolic flow velocities suggest mild (stage 1) diastolic dysfunction (reversed pattern). Mild (1+) eccentric mitral valve insufficiency. Mild (1+) tricuspid valve insufficiency. Mild (1+) eccentric aortic valve insufficiency. Ordering Physician: Kaylene Mullins Referring Physician: Mirlande Arellano Performed By: Dolores Serrano, WILLIAN, RVT 06/19/17 1244 Date Josr Gomez MD CC: Kaylene Mullins; Reed Cummings DO; Mirlande Arellano MD Date Dictated: 06/19/17 1054 Date Transcribed: 06/19/17 1244 Cell Inspector: Signed TROPONIN-I Collected: 06/19/2017 Status: F Source: [place] 10:53 AM [facility] Order Comment: 'TROP' Serial specimen #1, #2, #3, or #4: 4 TYPE CODE TESTS RESULT OUT OF RANGE REFERENCE UNITS LAB L501.4010 <0.06 ng/mL Normal < 0.02 TROPONIN-I Result Comment: TROPONIN-I EXPECTED VALUES <0.05 NEGATIVE 0.06 - 0.59 AT RISK OF MT > OR = 0.60 SUGGEST MT Performed By: #### L501.4010 #### [facility] [address] [place], [place], [address] CBC-COMPLETE BLOOD CNT Collected: 06/19/2017 Status: F Source: [place] NO DIFF 5:28 AM [facility] TYPE CODE TESTS RESULT OUT OF RANGE REFERENCE UNITS LAB L100.1000 4.4-11.0 K/mm3 Normal WBC 8.9 LAB L100.1200 4.2-5.4 M/mm3 Low RBC 4.11 LAB L100.1300 12.0-15.0 g/dl Normal HGB 12.2 LAB L100.1400 37-47 % Normal HCT 38.0 LAB L100.1500 81-99 fL Normal MCV 92.5 LAB L100.1600 27.0-32.0 pg Normal MCH 29.7 LAB L100.1700 32-36 g/gl Normal MCHC 32.1 LAB L100.1810 11.6-14.6 % Normal RDW CV 14.5 LAB L100.1820 35.1-43.9 fl High RDW SD 47.9 LAB L100.1900 150-450 K/mm3 Low PLT 148 LAB L100.2000 6.2-12.0 fl High MPV 12.2 Performed By: #### L100.0500 #### [facility] [address] [place], [place], [address] TROPONIN-I Collected: 06/19/2017 Status: F Source: [place] 5:28 AM [facility] REPOSITORY Order Comment: GAVE TO DAY PHLEB TO DRAW. 'TROP' Serial specimen #1, #2, #3, or #4: 3 TYPE CODE TESTS RESULT OUT OF RANGE REFERENCE UNITS LAB L501.4010 <0.06 ng/mL Normal < 0.02 TROPONIN-I Result Comment: TROPONIN-I EXPECTED VALUES <0.05 NEGATIVE 0.06 - 0.59 AT RISK OF MT > OR = 0.60 SUGGEST MT Performed By: #### L501.4010 #### [facility] [address] [place], [address] COMPREHENSIVE METABOLIC Collected: 06/19/2017 Status: F Source: [place] 5:28 AM [facility] REPOS[facility] Order Comment: GAVE TO DAY PHLEB TO DRAW. TYPE CODE TESTS RESULT OUT OF RANGE REFERENCE UNITS LAB L501.0100 74-106 mg/dL High GLU 109 Result Comment: Fasting Glucose result from 100 to 125 mg/dL suggests IMPAIRED HOMEOSTASIS per A.D.A. criteria. Please note revised GLUCOSE reference range effective 2017. LAB L501.1000 7-18 mg/dL High BUN 32 LAB L501.1100 0.55-1.02 mg/dL High CREAT,SERUM 1.19 Result Comment: The validity of the calculated GFR AND GFRAA in patients over 70 years has not been determined. Clinical correlation is essential. LAB L501.1110 >60 mL/min Low EST GFR 47 Result Comment: Non- GFR Calc LAB L501.1115 >60 mL/min Low EST GFR - AA 57 Result Comment: GFR Calc LAB L501.1255 ml/min Normal Estimated CRCL 31.77 LAB L501.1300 10-20 RATIO High BUN/CRE 26.9 LAB L501.1500 6.4-8. g/dL Low 2 T PROT 6.1 LAB L501.1800 3.2-5. g/dL Low 0 ALB 2.9 LAB L501.1950 2.2-4. g/dL Normal 2 GLOB 3.2 LAB L501.2000 0.9-2. RATIO Normal 4 A/G 0.9 LAB L501.2200 8.5-10 mg/dL Normal .1 CA 8.7 LAB L501.4100 15-37 U/L Low AST 14 LAB L501.4305 45-117 U/L High ALK P 129 LAB L501.4405 13-56 U/L Normal ALT 14 LAB L501.4600 0.20-1 mg/dL Normal .00 T BILI 0.40 LAB L501.5300 136-14 mmol/L Normal 5 NA 144 LAB L501.5600 3.5-5. mmol/L Normal 1 K 3.5 LAB L501.5900 98-107 mmol/L High CL 109 LAB L501.6100 21.0-3 mmol/L Normal 2.0 CO2 27.0 LAB L501.6200 5-15 Normal GAP 8 Performed By: #### L500.4050, L500.4100, L501.2300, L501.5200 #### [facility] [address] [place], [place], [address] LIPID PROFILE Collected: 06/19/2017 Status: F Source: [place] 5:28 AM [facility] REPOS[facility] Order Comment: GAVE TO DAY PHLEB TO DRAW. TYPE CODE TESTS RESULT OUT OF RANGE REFERENCE UNITS LAB L501.4900 200 mg/dL Normal CHOL 175 Result Comment: <200 mg/dL Desirable 200-240 mg/dL Borderline >240 mg/dL High Risk LAB L501.5000 mg/dL Normal TRIG 94 Result Comment: The drugs N-Acetylcysteine and Metamizole may falsely depress this assay. Serum Triglycerides Reference Interval Normal <150 mg/dL Borderline high 150 - 199 mg/dL High 200 - 499 mg/dL Very High > or = 500 mg/dL LAB L501.6400 mg/dL Normal HDL 68 Result Comment: The drugs N-Acetylcysteine and Metamizole may falsely depress this assay. Reference Range HDL <40 mg/dL Low HDL Cholesterol HDL >or= 60 mg/dL High HDL Cholesterol LAB L501.6500 0-130 mg/dL Normal LDL 88 LAB L501.6600 5-40 mg/dL Normal VLDL 19 Performed By: #### L500.4050, L500.4100, L501.2300, L501.5200 #### [facility] [address] [place], [place], [address] PHOSPHORUS Collected: 06/19/2017 Status: F Source: [place] 5:28 AM [facility] Order Comment: GAVE TO DAY PHLEB TO DRAW. TYPE CODE TESTS RESULT OUT OF RANGE REFERENCE UNITS LAB L501.2300 2.5-4.9 mg/dL Normal PHOS 3.4 Performed By: #### L500.4050, L500.4100, L501.2300, L501.5200 #### [facility] [address] [place], [address] MAGNESIUM Collected: 06/19/2017 Status: F Source: [place] 5:28 AM [facility] Order Comment: GAVE TO DAY PHLEB TO DRAW. TYPE CODE TESTS RESULT OUT OF RANGE REFERENCE UNITS LAB L501.5200 1.6-2.6 mg/dL Normal MG 2.6 Performed By: #### L500.4050, L500.4100, L501.2300, L501.5200 #### [facility] [address] [place], [address] TROPONIN-I Collected: 06/19/2017 Status: F Source: [place] 1:00 AM [facility] Order Comment: 'TROP' Serial specimen #1, #2, #3, or #4: 2 TYPE CODE TESTS RESULT OUT OF RANGE REFERENCE UNITS LAB L501.4010 <0.06 ng/mL Normal < 0.02 TROPONIN-I Result Comment: TROPONIN-I EXPECTED VALUES <0.05 NEGATIVE 0.06 - 0.59 AT RISK OF MT > OR = 0.60 SUGGEST MT Performed By: #### L501.4010 #### [facility] [address] [facility] [place], [address] HISTORY AND PHYSICAL Observed: 06/18/2017 Status: F Source: [place] EXAM 10:45 PM [facility] REPOSITORY [facility] Medical Records Department [address] [facility] [address] History and Physical 06/18/171925 MR#: [id number] Acct: [id number] Name: CIARA SAWYER I Rep #: [id number] : 1945 71 From: Asaf Mullins DO PCP: Mirlande Arellano MD Status: ADM IN Location: [place] [address] Problem List (1) Breast CA Status: Acute (2) Ischemic cerebrovascular accident (CVA) Status: Acute (3) HTN (hypertension) Status: Chronic (4) Chronic pain syndrome Status: Acute (5) GERD (gastroesophageal reflux disease) Status: Acute (6) Osteoarthritis Status: Acute (7) Obesity Status: Acute (8) Asthma Status: Acute (9) Gout Status: Acute (10) Hyperuricemia Status: Acute (11) Dehydration Status: Acute History of Present Illness Date of Admission: 06/18/17 Chief Complaint: left arm and leg numbness and weakness and L facial droop. The patient is a 71 year old F with a past medical history of hyperuricemia, gout, osteoarthritis, asthma, hypertension, enlarged heart with history of CHF, heart murmur, chronic pain syndrome, GERD, endometriosis (status post KENNETH/BSO), diverticulosis and left breast cancer diagnosed in the fall 2016 (treated with lumpectomy and radiation) who presented to [facility] on 06/18/17 c/o left facial droop, slurred speech, numbness and weakness of the left upper extremity and left leg. A CT scan of the brain showed no acute findings. Lab was remarkable for an elevated BUN and creatinine. She was transferred to [facility] for a neurology consult and MRI. She did not receive aspirin in the emergency room and she did tell me that she has not been taking the 81 mg of ASA prescribed to her daily. She has no prior history of a stroke. She tells me that she was diagnosed many years ago with an enlarged heart and congestive heart failure however a stress test done at [facility] in 2014 showed an ejection fraction of 76% with no evidence of ischemia. EKG sent with her from the emergency room shows normal sinus rhythm with a right bundle branch block and possible remote inferior wall myocardial infarction with Q waves in 3 and aVF. There are no suspicious ST or T-wave changes. She was admitted to a monitored bed on PCU with diagnosis of acute ischemic CVA. He is not a candidate for TPA as the symptoms started early this morning. TIA/CVA protocol was initiated. Past Medical History Past Medical History (Chronic Problems): Chronic Problems HTN (hypertension) (Chronic) Allergies ibandronate sodium [From Boniva] Allergy (Verified 03/29/14 13:04) Rash levofloxacin [From Levaquin] Allergy (Verified 03/29/14 13:04) Swelling Penicillins Allergy (Verified 03/29/14 12:48) Rash mannitol [From Reclast] Adverse Reaction (Verified 03/29/14 13:12) Pain in joints water for injection,sterile [From Reclast] Adverse Reaction (Verified 03/29/14 13:12) Pain in joints zoledronic acid [From Reclast] Adverse Reaction (Verified 03/29/14 13:12) Pain in joints LAMBERTO Allergy (Uncoded 12/20/14 15:26) Other ALL LAMBERTO'S NOVACAINE, MARCAINE, BUPIVACAINE Home Medications: Ambulatory Orders Medication Instructions Recorded Surgical History: cholecystectomy, hysterectomy - KENNETH with BSO for endometriosis, total knee arthroplasty - Left [address] 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 Paternal History Items: - - Father had heart disease Sibling History Items: Cancer - She has a brother who is secondary to cancer but she does not know the primary. Review of Systems Constitutional: Denies: Chills, Fever, Weight Change Eyes: Denies: Blurred vision, Redness HEENT: Denies: Difficulty Hearing, Difficulty Swallowing, Head Aches, Sinus Congestion, Sinus Drainage Cardiovascular: Reports: Light Headedness - she gets lightheaded at times when she is standing.. Denies: Chest Pain, Palpitations Respiratory: Denies: Cough, Shortness of Breath, Sputum production Gastrointestinal: Denies: Abdominal Pain, Nausea, Vomiting Genitourinary: Denies: Dysuria Gynecological: Denies: Vaginal discharge Skin: Denies: Jaundice, Rash, Wounds Neurological: Reports: Slurred speech, Focal weakness - Left arm and leg, Numbness - Left arm and leg and left face with facial droop and slurred speech. Denies: Blurred vision, Confusion, Difficulty swallowing, Tremor, Seizures Psychiatric: Denies: Anxiety, Depression, Homicidal Ideations, Suicidal Ideations Endocrine: Denies: Change in Body Habitus Hematologic/ Lymphatic: Denies: Hx of blood clot VTE Information - Inpt Only VTE Present on Admission: No VTE Mechan Device Prophylaxis: SCD's VTE Pharm Prophylaxis ordered?: Yes Patient Problems: Active and Suspected Problems Breast CA (Acute) Ischemic cerebrovascular accident (CVA) (Acute) Chronic pain syndrome (Acute) GERD (gastroesophageal reflux disease) (Acute) Osteoarthritis (Acute) Obesity (Acute) Asthma (Acute) Gout (Acute) Hyperuricemia (Acute) Dehydration (Acute) - Physical Exam General: Alert, Oriented x3, Cooperative, No apparent distress, Well developed, Well nourished HEENT: Atraumatic, PERRLA, EOMI, Normocephalic, - - L facial droop Oral: No Gingival or Mucosal Lesions/ Ulcerations, Dry Mucosa Neck: Supple, No JVD, Negative Carotid Bruits, No Nodes, No Nuchal Rigidity, Trachea Midline Lungs: Clear to auscultation, Normal air movement, No rhonchi, No wheeze, No rales Cardiovascular: Regular rate, Regular Rhythm, Normal S1, Normal S2, Murmur - 1-2/6 at the second RICS with no radiation, No rub noted, No Gallop Abdomen: Bowel Sounds Present, Soft, Non Tender, Non-Distended, Obese Extremities: No clubbing, No cyanosis, No edema, No Calf Tenderness, Peripheral Pulses Normal Skin: No rashes, No breakdown, - - Superficial varicosities lower extremities Musculoskeletal: No Muscle Wasting Neurological: Motor Exam 5/5 strength throughout, - - L facial droop and mild slurred speech...has drift with the LLE. Was able to walk to the BR with a cane with no LOB Psych/Mental Status: Normal Affect, Appropriate Vital Signs Temp Pulse Resp BP Pulse Ox 97.8 F 60 16 142/81 H 98 06/18/17 17:45 06/18/17 18:08 06/18/17 17:45 06/18/17 17:45 06/18/17 17:45 Oxygen Flow Rate (L/min) 2 Oxygen Delivery Method Nasal Cannula Weight: 197 lb 1.492 oz Body Mass Index (BMI) 37.2 Intake and Output for Last 24 Hours Intake Total 273 / 273 Balance 273 / 273 Assessment/Plan Active and Suspected Problems Breast CA (Acute) Ischemic cerebrovascular accident (CVA) (Acute) Chronic pain syndrome (Acute) GERD (gastroesophageal reflux disease) (Acute) Osteoarthritis (Acute) Obesity (Acute) Asthma (Acute) Gout (Acute) Hyperuricemia (Acute) Dehydration (Acute) Impressions 1. ischemic CVA with LUE and LLE numbness and weakness and with Left facial droop and slurred speech/dysarthria. She was admitted to a monitored bed on PCU and the TIA/CVA protocol was initiated. Echocardiogram has been ordered for the a.m. She has an allergy to contrast dye and gets crushing chest pain. MRI without contrast and MRA of the head and neck without contrast have been ordered. Neurology consult with Dr. Gayle. Aspirin 81 mg p.o. daily. Lipid panel in the a.m. 2. Hypertension 3. Breast cancer with history of left side lumpectomy and radiation in the fall 2016 4. GERD 5. Asthma 6. Obesity 7. Right bundle branch block 8. Hyperuricemia with history of gout 9. Osteoarthritis 10. History of endometriosis-status post KENNETH/BSO 11. History of diverticulosis 12. dehydration with an increased BUN/CREAT ratio and very dry MM Bolus with 500 cc's normal saline and start 100 cc/hr after the bolus. Hold diuretics. PT/ST/OT consults. Passed the bedside swallowing eval so will start a cardiac diet. Permissive HTN - will continue the Coreg to prevent reflex tachycardia Lipid panel in the AM and start Atorvastatin tonight Code Visit Inpatient E AND M: [id number] Init Hosp L3 06/18/17 9789 <Electronically signed by Asaf Mullins DO> Date M Nikolay Mullins DO Cosigner Signature: Date (if applicable) CC: Kaylene Mullins; Mirlande Arellano MD Signed LIVER PROFILE Collected: 06/18/2017 Status: F Source: [place] 8:27 PM [facility] Order Comment: 'TROP' Serial specimen #1, #2, #3, or #4: 1 TYPE CODE TESTS RESULT OUT OF RANGE REFERENCE UNITS LAB L501.1500 6.4-8.2 g/dL Normal T PROT 6.7 LAB L501.1800 3.2-5.0 g/dL Normal ALB 3.3 LAB L501.1950 2.2-4.2 g/dL Normal GLOB 3.4 LAB L501.4100 15-37 U/L Normal AST 15 LAB L501.4305 45-117 U/L High ALK P 150 LAB L501.4405 13-56 U/L Normal ALT 17 LAB L501.4600 0.20-1.00 mg/dL Normal T BILI 0.60 LAB L501.4700 0.00-0.30 mg/dL Normal D BILI 0.17 Performed By: #### L500.3400, L501.4010, L501.5200, L501.9520 #### [facility] [address] [place], [address] TROPONIN-I Collected: 06/18/2017 Status: F Source: [place] 8:27 PM [facility] Order Comment: 'TROP' Serial specimen #1, #2, #3, or #4: 1 TYPE CODE TESTS RESULT OUT OF RANGE REFERENCE UNITS LAB L501.4010 <0.06 ng/mL Normal < 0.02 TROPONIN-I Result Comment: TROPONIN-I EXPECTED VALUES <0.05 NEGATIVE 0.06 - 0.59 AT RISK OF MT > OR = 0.60 SUGGEST MT Performed By: #### L500.3400, L501.4010, L501.5200, L501.9520 #### [facility] [address] [place], [address] MAGNESIUM Collected: 06/18/2017 Status: F Source: [place] 8:27 PM [facility] Order Comment: 'TROP' Serial specimen #1, #2, #3, or #4: 1 TYPE CODE TESTS RESULT OUT OF RANGE REFERENCE UNITS LAB L501.5200 1.6-2.6 mg/dL Normal MG 2.6 Performed By: #### L500.3400, L501.4010, L501.5200, L501.9520 #### [facility] [address] [place], [address] THYROID STIM HORMONE Collected: 06/18/2017 Status: F Source: [place] (TSH) 8:27 PM [facility] Order Comment: 'TROP' Serial specimen #1, #2, #3, or #4: 1 TYPE CODE TESTS RESULT OUT OF RANGE REFERENCE UNITS LAB L501.9520 0.358-3.74 uIU/mL Normal TSH 1.36 Performed By: #### L500.3400, L501.4010, L501.5200, L501.9520 #### [facility] [address] [place], [place], [address] CHEST PA AND LATERAL Observed: 06/18/2017 Status: F Source: [place] 7:54 PM [facility] REPOSITORY [facility] Imaging Services [address] [place] [address] Chest PA and Lateral MR#: [id number] Acct: [id number] Name: CIARA SAWYER I Rep #: [id number] : 1945 F 71 From: Daniel Pedraza MD PCP: Mirlande Arellano MD Status: ADM IN Study: Chest PA and Lateral Date of Exam: 06/18/17 Exam# [id number] Ordering Dr: Asaf Mullins DO STUDY: X-RAY CHEST REASON FOR EXAM: Female, 71 years old. CHF and cough TECHNIQUE: PA and lateral COMPARISON: March 29, 2014 FINDINGS: The lungs are clear and expanded. There is no demonstrated pleural abnormality. Normal size heart. Normal mediastinum and nicole. Normal visualized pulmonary arteries. Normal visualized aortic arch and descending thoracic aorta. Dorsal spine demonstrates scoliosis and degenerative changes.. Normal visualized ribs, clavicles, and shoulders. There is no demonstrated abnormality of the visualized soft tissue structures of the upper abdomen. No significant change since prior study RAD/Chest PA and Lateral IMPRESSION: No acute cardiopulmonary pathology Electronically Signed: Daniel Pedraza MD at 20:54 EDT , Service support , CC: Kaylene Mullins; Mirlande Arellano MD Cell Inspector: Signed MRA HEAD ONLY WITHOUT Observed: 06/18/2017 Status: F Source: [place] CONTR[place] 7:54 PM [facility] REPOSITORY [facility] Imaging Services [address] [place] [address] MRA Head ONLY without Contrast MR#: [id number] Acct: [id number] Name: MANUELJAYECIARA I Rep #: [id number] : 1945 F 71 From: Olga Herrera MD PCP: Mirlande Arellano MD Status: ADM IN Study: MRA Head ONLY without Contrast Date of Exam: 06/19/17 Exam# [id number] Ordering Dr: Asaf Mullins DO STUDY: MRA OF THE HEAD WITHOUT CONTRAST REASON FOR EXAM: Female, 71 years old. Left facial droop and left hand numbness. Symptoms started yesterday morning. TECHNIQUE: 3-D [id number] (TOF) imaging was performed with MIPs. The study was performed unenhanced. COMPARISON: None. FINDINGS: Normal bilateral petrous carotid arteries. Normal right cavernous carotid artery with a normal supraclinoid bifurcation. Normal left cavernous carotid artery with a normal supraclinoid bifurcation. Normal right A1 segments of the anterior cerebral artery. Normal left A1 segments of the anterior cerebral artery. Normal intact anterior communicating artery (ACOM). Normal bilateral A2 segments of the anterior cerebral arteries. Normal right M1 and M2 segments of the middle cerebral arteries, with a normal M1 bifurcation. Normal left M1 and M2 segments of the middle cerebral arteries, with a normal M1 bifurcation. Normal right posterior communicating artery (PCOM). Normal left posterior communicating artery (PCOM). Normal bilateral vertebral arteries. Normal basilar artery with a normal basilar bifurcation. The visualized bilateral superior cerebellar (SCA) arteries are normal. Appears to be focal area of stenosis involving the right P1 segment. This appears to be hemodynamically significant. The left P1 segment is within normal limits. There are fewer visible left-sided P2 segments than they are on the right suggesting potential hemodynamically significant stenoses. The right-sided P2 segments are within normal limits. There is no demonstrated aneurysm of the [place]. There are mild involutional changes of the brain consistent with patient's age. MRI/MRA Head ONLY without Contrast IMPRESSION: 1. Focal area of stenosis involving the right P1 segment. 2. Apparent decreased flow within the left P2 segments possibly also related to stenosis and vasculopathy. Electronically Signed: Olga Herrera MD at 10:25 EDT , Service support , CC: Kaylene Mullins; Mirlande Arellano MD Cell Inspector: Signed BRAIN WITHOUT Observed: 06/18/2017 Status: F Source: [place] CONTRAST 7:54 PM [facility] REPOSITORY [facility] Imaging Services [address] [place] [address] Brain without Contrast MR#: [id number] Acct: [id number] Name: CIARA SAWYER I Rep #: [id number] : 1945 F 71 From: Jacobo Darby MD PCP: Mirlande Arellano MD Status: ADM IN Study: Brain without Contrast Date of Exam: 06/19/17 Exam# [id number] Ordering Dr: Asaf Mullins DO STUDY: MRI BRAIN WITHOUT CONTRAST REASON FOR EXAM: Female, 71 years old. Left-sided facial droop and left-sided and numbness TECHNIQUE: Standardized multiplanar fat and water weighted pulse sequences were obtained. COMPARISON: May 28, 2017 CT examination of the head FINDINGS: Acute cortical-based infarct in the right superior frontal lobe noted. No significant shift of midline structures. No associated hemorrhage. Bilateral basal ganglia mineralization. The basal cisterns are patent. The ventricular system appears unremarkable. Mild cerebral fine loss within closure changes. Chronic bilateral cerebellar small infarcts also noted. Few scattered foci T2/FLAIR hyperintense signal likely related with mild chronic small vessel disease in the periventricular and subcortical white matter IMPRESSION:Acute cortical-based infarct in the right superior frontal lobe noted. No significant shift of midline structures. No associated hemorrhage. Small bilateral cerebellar chronic infarcts. N.B. : The above information has been verbally conveyed by Jacobo Darby to Reed Sim , Referring Physician, on 06/19/2017 11:45:17 (ET). Electronically Signed: Jacobo Darby, at 11:12 EDT Tel , Service support , N.B. : The above information has been verbally conveyed by Jacobo Darby to Reed Sim , Referring Physician, on 06/19/2017 11:45:17 (ET). MRI/Brain without Contrast CC: Kaylene Mullins; Mirlande Arellano MD Cell Inspector: Signed MRA NECK WITHOUT Observed: 06/18/2017 Status: F Source: [place] CONTRAST 7:54 PM [facility] REPOSITORY [facility] Imaging Services [address] [place] [address] MRA Neck without Contrast MR#: [id number] Acct: [id number] Name: CIARA SAWYER I Rep #: [id number] : 1945 F 71 From: Jacobo Darby MD PCP: Mirlande Arellano MD Status: ADM IN Study: MRA Neck without Contrast Date of Exam: 06/19/17 Exam# [id number] Ordering Dr: Asaf Mullins DO STUDY: MRA NECK WITHOUT CONTRAST REASON FOR EXAM: Female, 71 years old. Left-sided facial droop and left hand numbness with slurred speech TECHNIQUE: Source images were obtained, MIPs were performed. The study was performed unenhanced. COMPARISON: None. FINDINGS: RIGHT CAROTID ARTERIES: The origin of the great vessels are not well assessed on this exam. The visualized segments of the common carotid arteries are patent. Internal carotid arteries are not well assessed on this examination with extensive motion and lack of intravenous contrast. The visualized segments of the vertebral arteries are patent. The origin of the vertebral arteries are not included on this exam. IMPRESSION: Limited MR angiogram of the neck. Please consider MR angiogram with IV contrast or CT angiogram of the neck for better assessment Electronically Signed: Jacobo Darby, at 12:37 EDT Tel , Service support , MRI/MRA Neck without Contrast CC: Kaylene Mullins; Mirlande Arellano MD Cell Inspector: Signed CT HEAD OR BRAIN W/O Observed: 06/18/2017 Status: F Source: [email or web address] CONTRAST 2:43 PM [facility] REPOSITORY ORIGINAL CT Head without contrast Clinical Statement: change in mental status/weakness/aphasia, facial droop Comparison: None This exam was performed according to our departmental dose optimization program, and includes the following measures where applicable: automated exposure control, adjustment of the mAs and/or kVp accord ing to patient size and/or exam, and an iterative reconstruction algorithm. Findings: No acute hemorrhage, infarct, or mass is seen. Mild atrophy and chronic white matter changes are noted. No hydrocephalus is noted. The visualized portions of the paranasal sinuses and mastoids are clear. The calvarium is intact. IMPRESSION: No acute intracranial process. Interpreted By: Devonte Orozco DO Preliminary Report By: Devonte Orozco DO Electronically Signed By: Devonte Orozco DO Dictated Date: 06/18/2017 2:54:25 PM Prelim Date: 06/18/2017 2:54:25 PM Sign Date: 06/18/2017 2:57:00 PM CBC Collected: 06/18/2017 Status: F Source: [place] 2:23 PM [facility] REPOSITORY TYPE CODE TESTS RESULT OUT OF REFERENCE UNITS RANGE LAB WBC(LOINC) 4.60-10.80 10 3/mcL High WBC 11.10 LAB RBCCT(LOINC 4.20-5.40 10 6/mcL ) RBC 4.75 LAB HGB(LOINC) 12.0-16.0 G/dL Hgb 14.1 LAB HCT(LOINC) 37.0-47.0 % Hct 42.5 LAB MCV(LOINC) 80.0-94.0 fL MCV 89.5 LAB MCH(LOINC) 27.0-31.2 pg MCH 29.7 LAB MCHC(LOINC) 33.0-37.0 G/dL MCHC 33.1 LAB RDW(LOINC) 11.5-14.5 % High RDW 15.2 LAB PLT(LOINC) 130-400 10 3/mcL Platelet 199 LAB MPV(LOINC) 7.4-10.4 fL High MPV 11.1 Performed By: #### CBC, ADIFF, ANEU, TROP, GFR, BMP #### [place] [address] [place], [place] [address] .AUTO DIFF Collected: 06/18/2017 Status: F Source: [place] [id number] [place] [address] REPOSITORY TYPE CODE TESTS RESULT OUT OF REFERENCE UNITS RANGE LAB AL(LOINC) 37.0-80.0 % Neutrophil % 78.7 LAB LYM(LOINC) 10.0-50.0 % Low Lymphocyte % 9.0 LAB MON(LOINC) 1.7-13.0 % Monocyte % 7.9 LAB EO(LOINC) 0.0-7.0 % Eosinophil % 3.8 LAB BAS(LOINC) 0.0-2.5 % Basophil % 0.6 LAB ABLYM(LOIN 0.77-3.85 10 3/mcL C) Lymphocyte, 1.00 Absolute LAB BORIS(LOINC 0.15-1.00 10 3/mcL ) Monocyte, 0.90 Absolute LAB AEOS(LOINC 0.00-0.40 10 3/mcL ) Eosinophil, 0.40 Absolute LAB ABAS(LOINC 0.00-0.19 10 3/mcL ) Basophil, 0.10 Absolute Performed By: #### CBC, ADIFF, ANEU, TROP, GFR, BMP #### [address] [address] .NEUABS Collected: 06/18/2017 Status: F Source: [address] REPOSITORY TYPE CODE TESTS RESULT OUT OF REFERENCE UNITS RANGE LAB ANEU(LOINC) 2.85-6.16 10 3/mcL High Neutrophil, 8.70 Absolute Performed By: #### CBC, ADIFF, ANEU, TROP, GFR, BMP #### [address] [address] TROP Collected: 06/18/2017 Status: F Source: [address] REPOSITORY TYPE CODE TESTS RESULT OUT OF REFERENCE UNITS RANGE LAB TROP(LOINC) 0.00-0.30 ng/mL Troponin <0.30 Result Comment: Below measuring range >=0.30 Consistent with cardiac damage, increased clinical risk and possibility of myocardial infarction. Serial measurements, clinical history, appropriate symptoms and/or ECG changes may help assess possibility of MT. *Other non-acute coronary syndrome conditions such as CHF, myocarditis, pulmonary emboli, sepsis and cardiac surgery could result in myocardial damage and increased troponin levels. Performed By: #### CBC, ADIFF, ANEU, TROP, GFR, BMP #### [place] [address] [place], [place] [address] .GFR Collected: 06/18/2017 Status: F Source: [facility] 2:23 PM [facility] REPOSITORY TYPE CODE TESTS RESULT OUT OF REFERENCE UNITS RANGE LAB GFRAA(LOINC ml/min/1.73 ) sqm GFR 50 Senegalese Result Comment: GFR Population mean for , Non- Americans Ages 20-29 = 116 mL/min/1.73 sq.m. Ages 30-39 = 107 mL/min/1.73 sq.m. Ages 40-49 = 99 mL/min/1.73 sq.m. Ages 50-59 = 93 mL/min/1.73 sq.m. Ages 60-69 = 85 mL/min/1.73 sq.m. Ages 70+ = 75 mL/min/1.73 sq.m. Chronic Kidney Disease: Less than 60 mL/min/1.73 square meters End Stage Renal Disease: Less than 15 mL/min/1.73 square meters LAB GFRNO(LOINC) ml/min/1.73sqm GFR Non- 41 Result Comment: GFR Population mean for , Non- Americans Ages 20-29 = 116 mL/min/1.73 sq.m. Ages 30-39 = 107 mL/min/1.73 sq.m. Ages 40-49 = 99 mL/min/1.73 sq.m. Ages 50-59 = 93 mL/min/1.73 sq.m. Ages 60-69 = 85 mL/min/1.73 sq.m. Ages 70+ = 75 mL/min/1.73 sq.m. Chronic Kidney Disease: Less than 60 mL/min/1.73 square meters End Stage Renal Disease: Less than 15 mL/min/1.73 square meters Performed By: #### CBC, ADIFF, ANEU, TROP, GFR, BMP #### Jossy [address] [address] BMP Collected: 06/18/2017 Status: F Source: [facility] 2:23 PM [facility] REPOSITORY TYPE CODE TESTS RESULT OUT OF REFERENCE UNITS RANGE LAB 1547-9 83-110 mg/dL GLUCOSE High 142 LAB NA(LOINC) 136-146 mEq/L Sodium Level 139 LAB K(LOINC) 3.5-5.1 mEq/L Potassium Level 3.9 LAB CL(LOINC) 98-107 mEq/L Chloride 98 LAB CO2(LOINC) 23-31 mEq/L CO2 30 LAB EBAL(LOINC mEq/L ) Electrolyte Balance 11.0 LAB BUN(LOINC) 7.0-18.0 mg/dL BUN High 26.4 LAB CRE(LOINC) 0.6-1.2 mg/dL Creatinine High Lvl (s) 1.3 LAB BC(LOINC) 7-27 ratio BUN/Creatinine 20 Ratio LAB CA(LOINC) 8.4-10.2 mg/dL Calcium Lvl 9.7 Performed By: #### CBC, ADIFF, ANEU, TROP, GFR, BMP #### Jossy [address] [address] PROGRESS Observed: 06/10/2017 Status: COMPLETED Source: [place] 10:37 AM [facility] REPOSITORY O ID: [id number] Author: Sahra Orozco Service: (none) Author Type: Nurse Practitioner Type: Progress Notes Filed: 06/10/2017 1:18 PM Note Text: Chief Complaint Patient presents with: Established Patient HPI: Ciara Swayer is a 71 year old female who presents here today for follow up breast cancer. Per Dr. Reyes's previous note: H/o HTN and CHF (?etiology) who was found to have an abnormality in the left breast on recent screening mammogram. ?? Patient underwent a bilateral digital screening mammogram in October 2016. There was a 6 mm irregular density noted in the left breast appearing to be indeterminate. ?? Patient underwent a subsequent ultrasound study on 10/20/2016. There was a 6 mm oval mass with an indistinct margin observed in the left breast at 2:00 anterior depth. It was hypoechoic. It correlated with the mammogram findings. ?? The patient was referred to Dr. lara who performed a core needle biopsy on 11/04/2016. ?? The pathology demonstrated an invasive well-differentiated ductal carcinoma. ER/PA were both positive at 90% and 80% respectively. HER-2 was quantified at 2+. ?? Underwent a left-sided lumpectomy with left axillary sentinel lymph node dissection on 12/03/2016. The final pathology demonstrated that within the lumpectomy specimen there was an 8 mm invasive ductal carcinoma.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 ding:SK6Psvl Repository : HA815Svw: 1 02/22/2018 [id number] Ambulatory BMSBuilding: [facility] Repository 02/10/2018/02/12/20 [id number] Ambulatory [address] Repository 01/31/2018 [id number] Ambulatory BMSBuilding: [facility] Repository 01/31/2018 [id number] Ambulatory [facility] ding:[facility]S Repository 01/18/2018 [id number] Ambulatory [facility] ding:LAB Repository 01/18/2018/01/19/20 [id number] Ambulatory BMSBuilding: [place] 18 BMS.[facility] Repository 12/09/2017/12/10/19 [id number] Ambulatory BBuilding:MT Jossy 18 [facility] Repository 11/19/2017/11/20/19 [id number] Ambulatory JOSSY Jossy [address] [place] [address] ding:RAD [facility] Repository 11/16/2017/11/17/19 [id number] Ambulatory JOSSY Jossy [address] [place] [address] ding:RAD [facility] Repository 11/11/2017/11/13/19 [id number] Ambulatory [address] Repository 09/03/2017/09/04/19 [id number] Ambulatory [address] ding:PT Repository 08/19/2017/08/20/19 [id number] Ambulatory JOSSY Jossy [address] [place] [address] ding:RAD [facility] Repository 08/11/2017/08/13/19 [id number] Ambulatory [address] Repository 07/21/2017/07/22/19 [id number] Ambulatory BMSBuilding: Mike 18 BMS.[facility] Repository 07/20/2017 [id number] Ambulatory BMSBuilding: [place] BMS.[facility] Repository 06/28/2017/06/29/19 [id number] Ambulatory [address] ding:PT Repository 06/18/2017/06/21/19 [id number] Lindensabi, Inpatient [place] ding:PCURoom Repository : DDC457Qul: 1 06/18/2017 [id number] Kalieletssabi, Ambulatory BMSBuilding: Mike Reed [facility] Repository 06/18/2017 [id number] Tereletsky, Ambulatory BMSBuilding: [place] Reed BMS.[facility] Repository 06/18/2017 [id number] Tereletsky, Ambulatory BMSBuilding: [place] Reed BMS.[facility] Repository 06/18/2017/06/21/19 [id number] Ambulatory BMSBuilding: [place] Repository 06/18/2017/06/21/19 [id number] Ambulatory BMSBuilding: [address] Repository 06/18/2017/06/19/19 [id number] Emergency BBuilding:ER [address] Repository 06/10/2017/06/12/19 [id number] Ambulatory [address] Repository 05/31/2017/06/01/19 [id number] Ambulatory [address] Repository 05/28/2017 [id number] Ambulatory [facility] ding:CT Repository 05/10/2017/05/15/19 [id number] Ambulatory [address] ding:[facility] Repository 05/05/2017 [id number] Ambulatory BBuilding:[facility] Repository 04/22/2017 [id number] Ambulatory [facility] ding:HPRAD Repository PAYERS PAYERS ENCOUNTER GUARANTOR PAYER SUBSCRIBER SOURCE 03/23/2018 CIARA I Primary CIARA I Mike [id number] Insurance:MEDICARE STINCHCOMBDOB: [facility] [id number] Number[place] Repository [address]Hdp: [phone] [id number] [phone] (HP) Date:2018-03-23 03/23/2018 Secondary CIARA I Mike Insurance:WPS STINCHCOMBDOB: [facility] [id number] Hospital Number: Repository [id number] Date:2046-66-04OS [address] [address]GI: 03/23/2018 Tertiary NOT GIVENUNK Mike Insurance:SELF PAY [facility] Number: Effective Repository Date:2018-03-23 03/07/2018 CIARA I Primary CIARA I [place] [id number] Insurance:MEDICARE STINCHCOMBDOB: [facility] [id number] Number: Repository [address]Ond: 330 [id number] [phone] () Date:2017-12-22 03/07/2018 Secondary CIARA I Mike Insurance:WPS STINCHCOMBDOB: [facility] [id number] Hospital Number: Repository [id number] Date:2430-47-27KD [address] [address]LJ: 03/07/2018 Tertiary NOT GIVENUNK Mike Insurance:SELF PAY [facility] Hospital Number: Effective Repository Date:2017-12-22 02/22/2018 CIARA I Primary CIARA I [place] [id number] Insurance:MEDICARE STINCHCOMBDOB: [facility] [id number] Number: Repository [address]Zpd: 330 [id number] [phone] (HP) Date:2017-12-22 02/22/2018 Secondary CIARA I [place] Insurance:WPS STINCHCOMBDOB: [facility] [id number] Hospital Number: Repository [id number] Date:8501-63-98OC [address] [address]GT: 02/22/2018 Tertiary NOT GIVENUNK [place] Insurance:SELF PAY [facility] Number: Effective Repository Date:2018-02-22 01/31/2018 CIARA I Primary CIARA I Mike [id number] Insurance:MEDICARE STINCHCOMBDOB: [facility] [id number] [place] Number: Repository [id number]: 330 [id number] [phone] () Date:2018-01-18 01/31/2018 Secondary CIARA I Mike Insurance:WPS STINCHCOMBDOB: [facility] [id number] Hospital Number: Repository [id number] Date:8610-94-89EB [address], [place] [address]RH: 01/31/2018 Tertiary NOT GIVENUNK [place] Insurance:SELF PAY [facility] Number: Effective Repository Date:2018-01-31 01/31/2018 CIARA I Primary CIARA I Mike [id number] Insurance:MEDICARE STINCHCOMBDOB: [facility] [id number] Number: Repository [address]Jhj: 330 [id number] [phone] () Date:2018-01-18 01/31/2018 Secondary CIARA I Mike Insurance:WPS STINCHCOMBDOB: [facility] [id number] Hospital Number: Repository [id number] Date:9729-51-36IB [address], [place] [address]OS: 01/31/2018 Tertiary NOT GIVENUNK [place] Insurance:SELF PAY [facility] Number: Effective Repository Date:2018-01-18 01/18/2018 CIARA I Primary CIARA I Mike [id number] Insurance:MEDICARE STINCHCOMBDOB: [facility] [id number] Number: Repository [address]Nhi: 330 [id number] [phone] () Date:2018-01-18 01/18/2018 Secondary CIARA I Mike Insurance:WPS STINCHCOMBDOB: [facility] [id number] Hospital Number: Repository [id number] Date:3126-71-37HK [address] [address]WZ: 01/18/2018 Tertiary NOT GIVENUNK Mike Insurance:SELF PAY [facility] Number: Effective Repository Date:2018-01-18 01/18/2018 CIARA I Primary CIARA I [place] [id number] Insurance:MEDICARE STINCHCOMBDOB: [facility] [id number] [place] Number: Repository [address]Fbj: (565) [id number] [phone] () Date:2018-01-03 01/18/2018 Secondary CIARA I Mike Insurance:WPS STINCHCOMBDOB: [facility] [id number] Hospital Number: Repository [id number] Date:8806-85-44XS [address], [place] [address]IV: 01/18/2018 Tertiary NOT GIVENUNK Mike Insurance:SELF PAY [facility] Number: Effective Repository Date:2018-01-12 12/09/2017 CIARA I Primary CIARA I [facility] STINCHCOMBDOB: Insurance:MEDICARE STINCHCOMBDOB: [facility] Number: [id number] Repository [place] [id number] [address] [place], [place] Date:2017-11-29 - [place], [place] [address]Pxe: [phone] 0522-14-08Pwtp 12[address]Rha: () Name:[facility] [phone] Administrators LLCPO ()Tel: 000) [address]Fklucxzvw, 000-0000 ([place]) [place] [address]QM: 12/09/2017 Secondary [facility] Insurance: FOR STINCHCOMBDOB: [facility] Number: [id number] Repository [id number] [address] [place] [address] Date:2017-11-29 - [place], [place] 8820-64-81Spoi [address]Kxp: (330) Name:[phone] [address]MDIANA shay (HP)Tel: [phone]: (WP) [phone] 11/19/2017 [facility] STINCHCOMBDOB: Insurance:MEDICARE STINCHCOMBDOB: [facility] PART BPolicy Number: [id number] [facility] [id number] Date:2017-11-15 [place], [place] [address]Krt: 330 6987-66-07Twgv 115[address]Wpt: (HP) Name:[facility] [phone] Administrators LLCPO (HP)Tel: 000) [address]Mxoiqxdso, 000-0000 (WP) [place] [address]ZA: 11/19/2017 Secondary [facility] Insurance: FOR STINCHCOMBDOB: [facility] Planoy Number: [id number] Repository [id number] [address] [place] [address] Date:2017-11-15 - [place] 3572-02-58Otli [address]Sjg: (330) Name:[phone] 78[address]MadiDIANA rowe (HP)Tel: [phone]: (WP) [phone] 11/16/2017 [facility] STINCHCOMBDOB: Insurance:MEDICARE STINCHCOMBDOB: [facility] PART BPolicy Number: [id number] Repository [place] [id number] [address] [place] [address] Date:2017-11-11 [place], [place] [address]Lzx: [phone] 797[address]Qsp: () Name:[facility] [id number] Administrators LLCPO (HP)Tel: 000) [address]Infovaqcs, 000-0000 ([place]) [place] [address]JI: 11/16/2017 Secondary CIARA I [facility] Insurance: FOR STINCHCOMBDOB: [facility] Number: [id number] Repository [id number] [address] [place] [address] Date:2017-11-11 - [place] 2126-94-80Ptjm [address]Jed: (161) Name:[facility] Angel [phone] [address], [place] ()Tel: [phone]: (WP) [phone] 09/03/2017 CIARA I Primary CIARA I Mike [id number] Insurance:MEDICARE STINCHCOMBDOB: [facility] [id number] Number: Repository [address]Tza: 330 [id number] [phone] () Date:2008-07-06 09/03/2017 Secondary CIARA I [place] Insurance:WPS STINCHCOMBDOB: [facility] [id number] Hospital Number: Repository [id number] Date:8315-93-87SV [address], [place] [address]VM: 09/03/2017 Tertiary NOT GIVENUNK [place] Insurance:SELF PAY [facility] Hospital Number: Effective Repository Date:2017-07-08 08/19/2017 CIARA I Primary CIARA I [facility] STINCHCOMBDOB: Insurance:MEDICARE STINCHCOMBDOB: [facility] PART olicy Number: [id number] Repository [place] [id number] [address] [place] [address] Date:2017-06-10 [place], [place] [address]Epy: [phone] [address]Kxr: Name:[facility] [phone] ()Tel: ([phone]) Kgxhuilscukfri LLCPO () (WP) [address]Syfrmxzwa, 000-0000 () [place] [address]QI: 08/19/2017 Secondary CIARA I [facility] Insurance: FOR STINCHCOMBDOB: [facility] Number: [id number] Repository [id number] [address] [place] [address] Date:2017-06-10 - [place] 3939-98-11Boqe [address]Pik: (889) Name:[facility] [phone] 7890MadiDIANA rowe ()Tel: [phone]: (WP) [phone] 07/21/2017 CIARA I Primary CIARA I [place] [id number] Insurance:MEDICARE STINCHCOMBDOB: [facility] [id number], [place] Number: Repository [address]Pem: 330 [id number] [phone] () Date:2017-07-01 07/21/2017 Secondary CIARA I [place] Insurance:[facility] STINCHCOMBDOB: [facility] [id number] Hospital Number: Repository [id number] Date:7936-58-07IH [address], [place] [address]TW: 07/21/2017 Tertiary NOT GIVENUNK Mike Insurance:SELF PAY [facility] Hospital Number: Effective Repository Date:2017-07-21 07/20/2017 CIARA I Primary CIARA I Mike [id number] Insurance:MEDICARE STINCHCOMBDOB: [facility] [id number], [place] Number: Repository [address]Mvo: 330 [id number] [phone] (HP) Date:2017-07-20 07/20/2017 Secondary CIARA I [place] Insurance:WPS STINCHCOMBDOB: [facility] [id number] Hospital Number: Repository [id number] Date:4093-49-51YI [address] [address]EO: 07/20/2017 Tertiary NOT GIVENUNK Mike Insurance:SELF PAY [facility] Number: Effective Repository Date:2017-07-20 06/28/2017 CIARA I Primary CIARA I [place] [id number] Insurance:MEDICARE STINCHCOMBDOB: [facility] [id number] [facility] [place] Number: Repository [id number]: 330 [id number] [phone] () Date:2008-07-06 06/28/2017 Secondary CIARA I Mike Insurance:WPS STINCHCOMBDOB: [facility] [id number] Hospital Number: Repository [id number] Date:6120-24-81HJ [address] [address]IC: 06/28/2017 Tertiary NOT GIVENUNK Mike Insurance:SELF PAY [facility] Number: Effective Repository Date:2017-06-03 06/18/2017 CIARA I Primary CIARA I [place] [id number] Insurance:MEDICARE STINCHCOMBDOB: [facility] [id number] [place] Number: Repository [address]Dar: 330 [id number] [phone] () Date:2017-06-18 06/18/2017 Secondary CIARA I [place] Insurance:WPS STINCHCOMBDOB: [facility] [id number] Hospital Number: Repository [id number] Date:5965-24-22DK [address], [place] [address]FI: 06/18/2017 Tertiary NOT GIVENUNK Mike Insurance:SELF PAY [facility] Hospital Number: Effective Repository Date:2017-06-18 06/18/2017 CIARA I Primary CIARA I Mike [id number] Insurance:MEDICARE STINCHCOMBDOB: [facility] [id number], [place] Number: Repository [address]Akn: 330 [id number] [phone] () Date:2017-06-18 06/18/2017 Secondary CIARA I [place] Insurance:WPS STINCHCOMBDOB: [facility] [id number] Hospital Number: Repository [id number] Date:6258-68-68VC [address] [address]FQ: 06/18/2017 Tertiary NOT GIVENUNK [place] Insurance:SELF PAY [facility] Hospital Number: Effective Repository Date:2017-06-18 06/18/2017 CIARA I Primary CIARA I Mike [id number] Insurance:MEDICARE STINCHCOMBDOB: [facility] [id number], [place] Number: Repository [address]Wrj: 330 [id number] [phone] () Date:2017-06-18 06/18/2017 Secondary CIARA I Mike Insurance:WPS STINCHCOMBDOB: [facility] [id number] Hospital Number: Repository [id number] Date:4484-25-29YP [address], [place] [address]JH: 06/18/2017 Tertiary NOT GIVENUNK Mike Insurance:SELF PAY [facility] Hospital Number: Effective Repository Date:2017-06-18 06/18/2017 CIARA I Primary CIARA I Mike [id number] Insurance:MEDICARE STINCHCOMBDOB: [facility] [id number] Regional Medical [facility] [place] Number: Repository [address]Ppq: 330 [id number] [phone] (HP) Date:2017-06-18 06/18/2017 Secondary CIARA I [place] Insurance:WPS STINCHCOMBDOB: [facility] [id number] Hospital Number: Repository [id number] Date:7326-65-31CD [address] [address]GP: 06/18/2017 Tertiary NOT GIVENUNK Mike Insurance:SELF PAY [facility] Number: Effective Repository Date:2017-06-18 06/18/2017 CIARA I Primary CIARA I Mike [id number] Insurance:MEDICARE STINCHCOMBDOB: [facility] [id number] Regional Medical [facility] [place] Number: Repository [address]Wgl: 330 [id number] [phone] (HP) Date:2017-06-18 06/18/2017 Secondary CIARA I Mike Insurance:WPS STINCHCOMBDOB: [facility] [id number] Hospital Number: Repository [id number] Date:2813-82-13GP [address] [address]HG: 06/18/2017 Tertiary NOT GIVENUNK [place] Insurance:SELF PAY [facility] Number: Effective Repository Date:2017-06-18 06/18/2017 CIARA I Primary CIARA I Mike [id number] Insurance:MEDICARE STINCHCOMBDOB: [facility] [id number], [place] Number: Repository [address]Dnf: 330 [id number] [phone] (HP) Date:2017-06-18 06/18/2017 Secondary CIARA I [place] Insurance:WPS STINCHCOMBDOB: [facility] [id number] Number: Repository [id number] Date:[id number] [address]HM: 06/18/2017 Tertiary NOT GIVENUNK [place] Insurance:SELF PAY [facility] Number: Effective Repository Date:2017-06-18 06/18/2017 CIARA I Primary [facility] STINCHCOMBDOB: Insurance:MEDICARE STINCHCOMBDOB: [facility] [place] PART olicy Number: [id number] Repository [place] [id number] [address] [place] [address] Date:2017-06-18 - [place], [place] [address]Zmf: [phone] [id number]: Name:[facility] [id number] ()Tel: ([phone] Administrators LLCPO () (WP) [address]Znllsqmjn, 000-0000 () [place] [address]UC: 06/18/2017 Secondary [facility] Insurance: FOR STINCHCOMBDOB: [facility] Number: [id number] Repository [id number] [address] [place] [address] Date:2017-06-18 - [place], [place] [id number] [phone]: ([phone] Name:[facility] [phone] [facility] [place] ()Tel: [phone]: [phone] 05/28/2017 CIARA I Primary CIRAA I [place] [id number] Insurance:MEDICARE STINCHCOMBDOB: [facility] [id number] Number: Repository [id number]: [phone] [id number] [phone] (HP) Date:2017-05-28 05/28/2017 Secondary CIARA I [place] Insurance:WPS STINCHCOMBDOB: [facility] [id number] Hospital Number: Repository [id number] Date:1058-05-08[address] [address]QZ: 05/28/2017 Tertiary NOT GIVENUNK [place] Insurance:SELF PAY [facility] Number: Effective Repository Date:2017-05-28 05/10/2017 [facility] STINCHCOMBDOB: Insurance:MEDICARE STINCHCOMBDOB: [facility] PART BPolicy Number: [id number] Repository [place] [id number] [address] [place], [place] Date:2017-05-10 - [place], [place] [address]Eyr: [phone] [phone]: Name:[facility] [id number] ()Tel: [phone]) Administrators LLCPO () (WP) [address] [address]Xzjwuacgi, 000-0000 (WP) [place] [address]HN: 05/10/2017 Secondary [facility] Insurance: FOR STINCHCOMBDOB: [facility] Number: [id number] Repository [id number] [address] [place] Date:2017-05-10 - [place], [place] [id number] [address]Cog: ([phone] Name:[facility] [phone] 78[address] ()Tel: [phone]: [phone] 05/05/2017 [facility] STINCHCOMBDOB: Insurance:MEDICARE STINCHCOMBDOB: [facility] PART BPolicy Number: [id number] Repository [place] [id number] [address] [place], [place] Date:2017-05-05 - [place], [place] [address]Eny: [phone]: Name:[facility] [phone] (HP)Tel: [phone]) Administrators LLCPO (HP) (WP) [address] [address]Bbceuwdjx, 000-0000 (WP) [place] [address]CD: 05/05/2017 Secondary CIARA I [facility] Insurance: FOR STINCHCOMBDOB: [facility] Number: [id number] Repository [id number] [address] [place] [address] Date:2017-05-05 - [place], [place] [id number] [phone]: ([phone]) Name:[facility] Box [phone] 7890[facility] hospitalDIANA rowe (HP)Tel: [phone]: [phone] 04/22/2017 Ciara Primary Ciara [place] [id number] Insurance:MEDICARE [place] IDOB: [facility] PART A [place]olic [id number] Number: Repository [id number]: [phone] [id number] [phone] () Date:2017-04-22 04/22/2017 Secondary NOT GIVENUNK Mike Insurance:SELF PAY [facility] Number: Effective Repository Date:2017-04-22
== END ==
PROVIDERS: Family Provider Nurse Practitioner Primary Care; PCP Nurse Practitioner Primary Care; Visit Provider Orthopaedic Surgery
DX: M79.661 Pain in right lower leg (principal)
CPT/HCPCS: 93971

== ENCOUNTER 2018-08-05 11:00 | Outpatient (RCR) | payer MEDICARE, OTHER, SELFPAY ==
--- NOTE | 2018-07-13 18:03 | HP.PTEVAL ---
Patient's Visit Information CIARA [place]ES is a 72 year old F referred to Physical Therapy by CHAIM Cotter with a diagnosis of LUMBAR DDD. Date of Evaluation: 07/13/18 Physical Therapist: Pooja Yoon PT, Cert MDT - Visit Plan Frequency: 2-3x /Week Duration: 2-4 Weeks Plan: AQUATIC THERAPY FOR PAIN RELEIF, POSTURE CORRECTION/STRENGTHENING, INSTRUCTION IN APPROPRIATE BODY MECHANICS AND ACTIVITY MODIFICATIONS. DLS STARTING WITH A NEUTRAL SPINE PROGRESSING ROM TOLERATED. AUGUSTO LE ROM, STRETCHING AND STRENGTHENING. HEP INSTRUCTION. - Subjective Findings: Work/Leisure: RETIRED. Present symptoms: I HAVE PAIN ALL OVER BUT MY LOWER BACK AND MY FEET ARE THE WORST. Present since: CHRONIC FOR YEARS. Pain Scale: WORST 8/10, LEAST 2/10. Currently: 05/15. Commenced as a result of: ARTHRITS. Symptoms at onset: BACK. Worse: BEING OFF MOBIC (TAKEN OFF BY SURGEON ASSISTANT SINCE STROKE ABOUT 2 YEARS AGO). WALKING, STANDING. STANDING IN KITCHEN TO COOK. Better: SITTING, HOT SHOWERS, LYING DOWN. Disturbed sleep: YES. Previous history/Previous treatment: AQUATIC THERAPY, RAY'S WITH LAST ONE BEING ABOUT 6 MONTHS AGO - LAST ONE DIDN'T HELP VERY MUCH. NO BACK SURGERY. NO CHIROPRACTOR. Coughing/sneezing/straining: NEGATIVE. Gait: VERY PAINFUL. SLOW. DISTANCE LIMITED. NORMALLY DOESN'T WALK OUTSIDE HOME WITHOUT CANE BUT FORGOT IT TODAY. ANKLES GIVE WAY RIGHT > LEFT. Difficulty initiating urinatin: NO. Accidents: NO. Unexplained weight loss: NO. Imaging: NONE RECENT. PMH: STROKE ABOUT 1 YEAR AGO. AUGUSTO TKR'S - RIGHT KNEE ABOUT 3 MONTHS AGO AND LEFT KNEE 2 YEARS AGO. PATIENT REPORTS HER BLOOD PRESSURE HAS BEEN UNDER CONTROL LATELY. - Objective Sitting/Standing Posture: POOR. AUGUSTO GENU VALGUS. MILD INCREASED TRUNK FLEXION. Lordosis: REDUCED. Lateral shift: NO. Relevant shift: N/A. Active Correction of posture: NE. Other Observations: INDEP GAIT INTO PT WITHOUT ASSISTIVE DEVICE. DECREASED CADANCE, DECREASED AUGUSTO STRIDE LENGTH AND LIMPING ON RIGHT LE. PATIENT LURCHES FROM SIDE TO SIDE AND HAS DIFFICULTY MAKING IT 300 FEET BACK TO A TREATMENT ROOM. SHE IS UNABLE TO SLS ON EITHER LEG FOR MORE THAN A SECOND OR TWO WITHOUT UE ASSIST. THIS PT RECOMMENDS USE OF AD AT ALL TIMES FOR SAFEY. Motor deficit: AUGUSTO LE WEAKNESS. AUGUSTO LE STRENGTH IS GROSSLY 4-/5 WITH MMT'ING. Sensory deficit: DECREASED LIGHT TOUCH RIGHT LATERAL KNEE. ROM deficit: WFL WITH FULL AUGUSTO KNEE EXT AND FLEX TO 122 DEG RIGHT AND 126 DEG LEFT. Reflexes: NT. Dural Signs: NEGATIVE AUGUSTO LE'S. Lumbar mvmt loss: flex - NIL. ext - MOD. R SG - MIN. L SG - MOD. Core strength: POOR. Palpation: MILD TENDERNESS WITH PALPATION OF LOWER LUMBAR SPINE. - Goals Goal 1:: DECREASE C/O BACK AND AUGUSTO LE SX'S. Goal Time Frame: 4-6 Weeks Goal 2:: IMPROVE STANDING, WALKING AND ADL FUNCTION Goal Time Frame: 4-6 Weeks Goal 3:: INDEP WATER EX PROGRAM Goal Time Frame: 4-6 Weeks - Rehabilitation Potential Rehabilitation Potential: Questionable - Anticipated Interventions Patient/Client Instruction: Educate patient on: Condition, Plan of Care, Risk Factors, Benefits of Fitness Program For the Purpose of:: To improve self management Therapeutic Exercise to Include: Strength training, Body mechanics, Postural training, Flexibilty training, In an aquatic setting, Dynamic Lumbar Stabilization For the Purpose of:: To decrease pain, To increase ROM, To improve muscle performance and motor function, To increase tolerance to activity/condition/position, To improve ability of physical actions for home/community/work/leisure, To improve gait and locomotor functions Thank you for the opportunity to evaluate your patient. For Medicare and Medicare HMO plans, please review the plan of care and approve it. It will need to be FAXED BACK to us at [phone] for Medicare purposes. For Medicare only, by signing this I certify the plan of care. Please let me know if there are questions or concerns regarding this plan of care. Physician Signature: Date:
--- NOTE | 2018-08-05 11:32 | HP.PTDCSUM_ITS ---
HP - PT D/C Summary It has been my pleasure to treat CIARA [place]ES under orders from Tammy Torres, MAGALIS-C, for the diagnosis of LUMBAR DDD for a total of 6 visit(s). Discharge Date: 08/05/18 Please see the following information for a summary of their discharge status. - Subjective Subjective: PATIENT REPORTS SHE IS GLAD SHE DID THE WATER THERAPY AGAIN. STILL INTENDS TO JOIN MEMBERSHIP TO CONTINUE THE WATER EX'S ON HER OWN. SHE REPORTS HER POSTURE IS STONGER NOW AND SHE CAN WALK BETTER WITHOUT HER CANE NOW. GERIATRIC CARE MANAGER IS THE MOST DIFFICULT. USING CANE WHEN SHE GOES OUT. SHE REPORTS THE CANE ACTUALLY HELPS HER BACK MORE THAN HER FEET AND LEGS AND HER BACK IS WHAT GIVES HER THE MOST TROUBLE. STATES BACK SURGERY HAS BEEN RECOMMENDED BUT SHE IS RELUCTANT. I DON'T FEEL ANY PAIN WHEN I AM IN THAT WATER. - Pain bilat lumbar Pain Intensity (Out of 10): 4 BLAT feet Pain Intensity (Out of 10): 3 - Overall Improvement % Improvement: 30 - Objective Objective/Function: PATIENT HAS RESPONDED WELL TO AQUATIC THERAPY AGAIN BUT UPON EXAM TODAY THERE ARE SIMILAR FINDINGS TO INITIAL EVAL. LUMBAR OSWESTRY IS ALSO SIMILAR TO EVAL. PATIENT IS A GOOD CANDIDATE TO CONTINUE INDEP WATER EX AT THIS POINT. SHE BROUGHT HER CANE TODAY AND DEFINATELY WALKS BETTER WITH HER CANE VS WITHOUT AND THIS PT STILL RECOMMENDS CANE AT ALL TIMES FOR SAFETY. PATIENT IS AGREEABLE. - Goals Goal 1:: DECREASE C/O BACK AND AUGUSTO LE SX'S. Goal Progress: Progressing Goal 2:: IMPROVE STANDING, WALKING AND ADL FUNCTION Goal Progress: Progressing Goal 3:: INDEP WATER EX PROGRAM Goal Progress: Progressing - Plan Plan: D/C TO INDEP WATER EX PROGRAM. - D/C Information If there are questions or concerns regarding this patient's physical therapy, please feel free to call me at [phone]. Thank you for the referral of this patient. Sincerely, Pooja Yoon, PT, Cert MDT
== END 2018-08-05 19:00 | disposition home or self-care (01) ==
LOC: PT 11:00
PROVIDERS: Family Provider Nurse Practitioner Primary Care; PCP Nurse Practitioner Primary Care; Referring Provider Nurse Practitioner Family; Visit Provider Nurse Practitioner Family
DX: M51.36 Other intervertebral disc degeneration, lumbar region (principal)
CPT/HCPCS: 97113; 97162; 97530

== ENCOUNTER → 2018-08-23 | Outpatient (CLI) | payer MEDICARE, OTHER, SELFPAY ==
[2018-08-23 13:01] VITALS: BMI 36.8
[2018-08-23 15:21] LABS: Hematocrit 39.8 % (37-47); Hemoglobin 12.6 g/dl (12.0-15.0); Mean Corp Hgb Conc 31.7 g/gl (32-36); Mean Corpuscular Hgb 29.6 pg (27.0-32.0); Mean Corpuscular Volume 93.4 fL (81-99); Mean Platelet Vol. 12.3 fl (6.2-12.0); Platelet Count 178 K/mm3 (150-450); RBC Distribution Width CV 14.3 % (11.6-14.6); RBC Distribution Width SD 48.3 fl (35.1-43.9); Red Blood Count 4.26 M/mm3 (4.2-5.4); White Blood Count 7.2 K/mm3 (4.4-11.0)
[2018-08-23 15:31] LABS: Scan Indicated on CBC? Y/N NO
[2018-08-23 15:49] LABS: Anion Gap 5 (5-15); BUN 19 mg/dL (7-18); Calcium,Total 9.6 mg/dL (8.5-10.1); Chloride 105 mmol/L (98-107); Creatinine, Serum 0.91 mg/dL (0.55-1.02); EST Glomerular Filtration Rate 64 mL/min (>60); Est Glom Filt Rate - Afr Amer 78 mL/min (>60); Glucose 85 mg/dL (74-106); Potassium 4.4 mmol/L (3.5-5.1); Sodium Level 143 mmol/L (136-145)
== END | disposition home or self-care (01) ==
LOC: LAB 15:03
PROVIDERS: Family Provider Nurse Practitioner Primary Care; PCP Nurse Practitioner Primary Care; Referring Provider Internal Medicine Cardiovascular Disease; Visit Provider Internal Medicine Cardiovascular Disease
DX: R06.02 Shortness of breath (principal)
CPT/HCPCS: 36415; 80048; 85027

== ENCOUNTER 2019-02-06 13:30 | Outpatient (RCR) | payer MEDICARE, OTHER, SELFPAY ==
[2018-08-23 13:01] VITALS: BMI 36.8
--- NOTE | 2018-12-05 15:17 | HP.PTEVAL ---
Patient's Visit Information CIARA [place]ES is a 73 year old F referred to Physical Therapy by CHAIM Cotter with a diagnosis of LUMBAR DDD AND RADICULOPATHY. Date of Evaluation: 12/05/18 Physical Therapist: Pooja Yoon PT, Cert MDT - Visit Plan Frequency: 2-3x /Week Duration: 4-6 Weeks Plan: AQUATIC THERAPY AND LAND THER EX FOR PAIN RELEIF, POSTURE CORRECTION/STRENGTHENING, INSTRUCTION IN APPROPRIATE BODY MECHANICS AND ACTIVITY MODIFICATIONS. DLS STARTING WITH A NEUTRAL SPINE PROGRESSING ROM TOLERATED. AUGUSTO LE ROM, STRETCHING AND STRENGTHENING. HEP INSTRUCTION. WILL NEED TO FOCUS ON HOME EX PROGRAM DUE TO THE FACT THAT PATIENT IS NOT GOING TO HAVE ACCESS TO A POOL POST THERAPY. - Subjective Findings: Work/Leisure: RETIRED. Present symptoms: I HAVE PAIN ALL OVER BUT MY LOWER BACK AND MY FEET ARE THE WORST. SHE REPORTS SHE HAS A LOT OF WEAKNESS IN HER LEGS TOO. Present since: CHRONIC FOR YEARS. Pain Scale: WORST 8/10, LEAST 2/10. Currently: 2/10. Commenced as a result of: ARTHRITS. Symptoms at onset: BACK. Worse: WALKING, STANDING. STANDING IN KITCHEN TO COOK. Better: SITTING, HOT SHOWERS, LYING DOWN. Disturbed sleep: YES. Previous history/Previous treatment: AQUATIC THERAPY, RAY'S WITH LAST ONE BEING ABOUT ONE MONTHS AGO - PATIENT REPORTS IT HELPED BUT IT IS ALREADY STARTING TO WEAR OFF. NO BACK SURGERY. NO CHIROPRACTOR. Coughing/sneezing/straining: NEGATIVE. Gait: VERY PAINFUL. SLOW. DISTANCE LIMITED. NORMALLY DOESN'T WALK OUTSIDE HOME WITHOUT CANE BUT FORGOT IT TODAY. ANKLES GIVE WAY RIGHT > LEFT. Difficulty initiating urinatin: NO. Accidents: NO. Unexplained weight loss: NO. Imaging: NONE RECENT. PMH: STROKE JUNE 2017. AUGUSTO TKR'S - RIGHT KNEE ABOUT 6 MONTHS AGO AND LEFT KNEE 2.5 YEARS AGO. PATIENT REPORTS HER BLOOD PRESSURE HAS BEEN UNDER CONTROL OFF AND ON - PRETTY MUCH UNDER CONTROL. OTHER: PATIENT REPORTS HER LEGS ARE REALLY WEAK AND SHE THINKS IT IS COMING FROM HER BACK AND CLAUDIA MILLER TOLD HER SHE NEEDS TO GET BACK TO THERAPY. PATIENT REPORTS SHE DOES NOT HAVE THE MONEY TO GET A MEMBERSHIP ANYWHERE TO CONTINUE ON HER OWN. - Objective Sitting/Standing Posture: POOR. AUGUSTO GENU VALGUS. MILD INCREASED TRUNK FLEXION. Lordosis: REDUCED. Lateral shift: NO. Relevant shift: N/A. Active Correction of posture: NE. Other Observations: INDEP GAIT INTO PT WITHOUT ASSISTIVE DEVICE. DECREASED CADANCE, DECREASED AUGUSTO STRIDE LENGTH AND LIMPING ON RIGHT LE. PATIENT LURCHES FROM SIDE TO SIDE AND HAS DIFFICULTY MAKING IT 300 FEET BACK TO A TREATMENT ROOM. SHE IS UNABLE TO SLS ON EITHER LEG FOR MORE THAN A SECOND OR TWO WITHOUT UE ASSIST. THIS PT RECOMMENDS USE OF AD AT ALL TIMES FOR SAFEY. Motor deficit: AUGUSTO LE WEAKNESS. AUGUSTO LE STRENGTH IS GROSSLY 4-/5 WITH MMT'ING. Sensory deficit: DECREASED LIGHT TOUCH AUGUSTO LATERAL KNEES. ROM deficit: WFL WITH FULL AUGUSTO KNEE EXT AND FLEX TO 124 DEG RIGHT AND 128 DEG LEFT. Reflexes: NT. Dural Signs: NEGATIVE AUGUSTO LE'S. Lumbar mvmt loss: flex - NIL. ext - MOD. R SG - MIN. L SG - MOD. Core strength: POOR. Palpation: MILD TENDERNESS WITH PALPATION OF LOWER LUMBAR SPINE. - Goals Goal 1:: DECREASE C/O BACK AND LEG SYMPTOMS Goal Time Frame: 4-6 Weeks Goal 2:: IMPROVE LIFTING, WALKING, SITTING, STANDING, SLEEP, SOCIAL LIFE, TRAVEL AND HOMEMAKING FUNCTION. Goal Time Frame: 4-6 Weeks Goal 3:: INSTRUCT IN PROPHYLAXIS Goal Time Frame: 4-6 Weeks - Rehabilitation Potential Rehabilitation Potential: Fair - Anticipated Interventions Patient/Client Instruction: Educate patient on: Condition, Plan of Care, Risk Factors, Benefits of Fitness Program For the Purpose of:: To improve self management Therapeutic Exercise to Include: Strength training, Body mechanics, Postural training, Flexibilty training, In an aquatic setting, Dynamic Lumbar Stabilization For the Purpose of:: To decrease pain, To increase ROM, To improve muscle performance and motor function, To increase tolerance to activity/condition/position, To improve ability of physical actions for home/community/work/leisure, To improve gait and locomotor functions Thank you for the opportunity to evaluate your patient. For Medicare and Medicare HMO plans, please review the plan of care and approve it. It will need to be FAXED BACK to us at [phone] for Medicare purposes. For Medicare only, by signing this I certify the plan of care. Please let me know if there are questions or concerns regarding this plan of care. Physician Signature: Date:
--- NOTE | 2019-01-06 13:30 | HP.PTDCSUM ---
HP - PT D/C Summary It has been my pleasure to treat CIARA [place]ES under orders from Tammy Torres, MAGALIS-C, for the diagnosis of LUMBAR DDD AND RADICULOPATHY for a total of 7 visit(s). Discharge Date: Please see the following information for a summary of their discharge status. - Subjective Subjective: PATIENT REPORTS HAVING BRONCHITIS WAS REALLY HARD ON HER THIS TIME. FOLLOW UP WITH PAIN MGMT R/S'D FOR Jan DUE TO ILLNESS. PATIENT REPORTS SHE TWISTED HER LEFT KNEE IN THE NIGHT 2 DAYS AGO AND IT IS STILL SORE ON THE OUTSIDE BUT MUCH BETTER THAN IT WAS. PATIENT REPORTS SHE WAS STARTING TO HAVE MORE STAMINA AND WAS ABLE TO STAY WITH THINGS LIKE WASHING DISHES AND COOKING UNTIL SHE GOT SICK WITH BRONCHITIS. - Pain LB Pain Intensity (Out of 10): 0 neck Pain Intensity (Out of 10): 2 bilat hips Pain Intensity (Out of 10): 0 - Overall Improvement % Improvement: 50 - Objective Objective/Function: INDEP GAIT INTO PT WITHOUT ASSISTIVE DEVICE. DECREASED CADANCE, DECREASED AUGUSTO STRIDE LENGTH AND LIMPING ON RIGHT LE. PATIENT LURCHES FROM SIDE TO SIDE AND HAS DIFFICULTY MAKING IT 300 FEET BACK TO A TREATMENT ROOM. SHE IS UNABLE TO SLS ON EITHER LEG FOR MORE THAN A SECOND OR TWO WITHOUT UE ASSIST. THIS PT RECOMMENDS USE OF AD AT ALL TIMES FOR SAFEY. Motor deficit: AUGUSTO LE WEAKNESS. AUGUSTO LE STRENGTH IS GROSSLY 4-/5 WITH MMT'ING. Sensory deficit: DECREASED LIGHT TOUCH AUGUSTO LATERAL KNEES. ROM deficit: WFL WITH FULL AUGUSTO KNEE EXT AND FLEX TO 124 DEG RIGHT AND 128 DEG LEFT. Reflexes: NT. Dural Signs: NEGATIVE AUGUSTO LE'S. Lumbar mvmt loss: flex - NIL. ext - MOD. R SG - MIN. L SG - MOD. Core strength: POOR. Palpation: MILD TENDERNESS WITH PALPATION OF LOWER LUMBAR SPINE. - Goals Goal 1:: DECREASE C/O BACK AND LEG SYMPTOMS Goal Progress: Progressing Goal 2:: IMPROVE LIFTING, WALKING, SITTING, STANDING, SLEEP, SOCIAL LIFE, TRAVEL AND HOMEMAKING FUNCTION. Goal Progress: Progressing Goal 3:: INSTRUCT IN PROPHYLAXIS Goal Progress: Progressing - Plan Plan: CONTINUE AQUATIC THERAPY AND LAND THER EX FOR PAIN RELEIF, POSTURE CORRECTION/STRENGTHENING, INSTRUCTION IN APPROPRIATE BODY MECHANICS AND ACTIVITY MODIFICATIONS. DLS. AUGUSTO LE ROM, STRETCHING AND STRENGTHENING. HEP INSTRUCTION. CONTINUE TO FOCUS ON HOME EX PROGRAM DUE TO THE FACT THAT PATIENT IS NOT GOING TO HAVE ACCESS TO A POOL POST THERAPY - D/C Information If there are questions or concerns regarding this patient's physical therapy, please feel free to call me at [phone]. Thank you for the referral of this patient. Sincerely, Pooja Yoon, PT, Cert MDT
--- NOTE | 2019-02-06 14:00 | HP.PTDCSUM ---
HP - PT D/C Summary It has been my pleasure to treat CIARA [place]GES under orders from Tammy Torres, MAGALIS-C, for the diagnosis of LUMBAR DDD AND RADICULOPATHY for a total of 16 visit(s). Discharge Date: 02/06/19 Please see the following information for a summary of their discharge status. - Subjective Subjective: PATIENT REPORTS SHE IS DOING HER HEP AND SHE LIKES IT. STATES SHE USES HER WRITTEN INSTRUCTIONS AND THE EX'S ARE HELPFUL. STATES SHE DOENS'T REALLY USE THE CANE MUCH IN THE HOUSE ANYMORE BUT SHE TAKES WHEN SHE LEAVES THE HOUSE JUST A PRECAUTION. PATIENT REPORTS SHE WOULD LIKE TO TRY TO JUST CONTINUE WITH HER HEP AT THIS POINT BUT SHE LOVES THE WATER. - Pain LB Pain Intensity (Out of 10): 4 neck Pain Intensity (Out of 10): 0 bilat hips Pain Intensity (Out of 10): 0 R ankle Pain Intensity (Out of 10): 2 - Overall Improvement % Improvement: 75 - Objective Objective/Function: INDEP GAIT INTO PT WITH STRAIGHT CANE. DECREASED CADANCE, DECREASED AUGUSTO STRIDE LENGTH. PATIENT LURCHES FROM SIDE TO SIDE BUT ABLE TO MAKE IT APPROX 300 FEET BACK TO THE TREATMENT ROOM WITHOUT DIFFICULTY TODAY. SHE IS STILL UNABLE TO SLS ON EITHER LEG FOR MORE THAN A SECOND OR TWO WITHOUT UE ASSIST. THIS PT RECOMMENDS USE OF AD AT ALL TIMES FOR SAFEY. Motor deficit: AUGUSTO LE WEAKNESS. AUGUSTO LE STRENGTH HAS IMPROVED THOUGH AND GROSSLY 4/5 WITH MMT'ING. Sensory deficit: AUGUSTO LE LIGHT TOUCH IS INTACT AND SYMMETRICAL WITH TESTING TODAY. THE NUMBNESS NEAR HER KNEES IS GONE. Reflexes: NT. Dural Signs: NEGATIVE AUGUSTO LE'S. Lumbar mvmt loss: flex - NIL. ext - MOD. R SG - MIN. L SG - MOD. Core strength: POOR. Palpation: LOW BACK IS NOT TENDER TODAY. - Goals Goal 1:: DECREASE C/O BACK AND LEG SYMPTOMS Goal Progress: Goal Met Goal 2:: IMPROVE LIFTING, WALKING, SITTING, STANDING, SLEEP, SOCIAL LIFE, TRAVEL AND HOMEMAKING FUNCTION. Goal Progress: Goal Met Goal 3:: INSTRUCT IN PROPHYLAXIS Goal Progress: Goal Met - Plan Plan: D/C TO HEP. PATIENT IS AGREEABLE. - D/C Information If there are questions or concerns regarding this patient's physical therapy, please feel free to call me at [phone]. Thank you for the referral of this patient. Sincerely, Pooja Yoon PT, Cert MDT
== END 2019-02-06 19:00 | disposition home or self-care (01) ==
LOC: PT 13:30
PROVIDERS: Family Provider Nurse Practitioner Primary Care; PCP Nurse Practitioner Primary Care; Referring Provider Nurse Practitioner Family; Visit Provider Nurse Practitioner Family
DX: M51.37 Other intervertebral disc degeneration, lumbosacral region (principal)
CPT/HCPCS: 97110; 97113; 97162; 97530

== ENCOUNTER → 2020-05-08 14:02 | Outpatient (CLI) | payer MEDICARE, OTHER, SELFPAY ==
[2020-05-08 13:05] VITALS: BMI 40.0
--- NOTE | 2020-05-08 14:15 | RAD_ITS ---
STUDY: X-RAY CHEST REASON FOR EXAM: Female, 74 years old. CADET TECHNIQUE: PA and lateral views of the chest. COMPARISON: 06/18/17. FINDINGS: Cardiac silhouette unremarkable. Pulmonary vascularity unremarkable. Aorta unremarkable. No focal airspace opacities. No pleural effusions. 2 small left upper lobe granulomas. Upper abdomen unremarkable. Osseous structures intact. No pneumothorax. Left axillary clips. RAD/Chest PA and Lateral IMPRESSION: No acute cardiopulmonary process identified. Electronically Signed: Zaire Han MD at 17:15 EST Tel , Service support ,
[2020-05-08 15:37] LABS: Absolute Lymphocyte Count 1.76 X10^3/uL (0.83-4.51); Absolute Neutrophil Count 4.9 X10^3/uL (2.0-7.7); Basophil# 0.05 X10^3/uL; Basophil% 0.7 % (0-1); Eosinophil# 0.28 X10^3/uL; Eosinophils% 3.7 % (0-5); Hematocrit 40.5 % (37-47); Lymphocyte # 1.76 X10^3/ul (4.0); Lymphocyte % 23.1 % (19-41); Mean Corp Hgb Conc 32.1 g/dL (32-36); Mean Corpuscular Hgb 29.7 pg (27.0-32.0); Mean Corpuscular Volume 92.5 fL (81-99); Monocyte# 0.65 X10^3/uL; Monocyte% 8.5 % (0-10); NRBC Flagged by Analyzer 0 % (0-5); Neutrophil # 4.85 X10^3/uL (2.7-7.7); Neutrophil % 63.7 % (47-70); Platelet Count 171 K/mm3 (150-450); RBC Distribution Width CV 12.8 % (11.6-14.6); RBC Distribution Width SD 43.5 fl (35.1-43.9); Red Blood Count 4.38 M/mm3 (4.2-5.4); White Blood Count 7.6 K/mm3 (4.4-11.0)
[2020-05-08 16:06] LABS: ALB/GLOB Ratio 0.9 RATIO (0.9-2.4); AST(SGOT) 14 U/L (15-37); Alanine Aminotransfer ALT/SGPT 15 U/L (13-56); Albumin, Serum 3.3 g/dL (3.2-5.0); Alkaline Phosphatase 149 U/L (45-117); Anion Gap 5 (5-15); BUN 21 mg/dL (7-18); BUN/Creat Ratio 19.3 RATIO (10-20); Calcium,Total 9.2 mg/dL (8.5-10.1); Chloride 107 mmol/L (98-107); Creatinine, Serum 1.09 mg/dL (0.55-1.02); EST Glomerular Filtration Rate 52 mL/min (>60); Est Glom Filt Rate - Afr Amer 63 mL/min (>60); Globulin 3.5 g/dL (2.2-4.2); Glucose 94 mg/dL (74-106); Protein, Total 6.8 g/dL (6.4-8.2); Sodium Level 141 mmol/L (136-145); Thyroid Stim Hormone (TSH) 2.24 uIU/mL (0.358-3.74)
== END ==
PROVIDERS: PCP Student in an Organized Health Care Education/Training Program; Referring Provider Physician Assistant Medical; Visit Provider Physician Assistant Medical
DX: I11.0 Hypertensive heart disease with heart failure (principal); I50.32 Chronic diastolic (congestive) heart failure; E78.00 Pure hypercholesterolemia, unspecified; R06.00 Dyspnea, unspecified
CPT/HCPCS: 36415; 71046; 80053; 83880; 84443; 85025

== ENCOUNTER → 2020-05-17 06:28 | Outpatient (CLI) | payer MEDICARE, OTHER, SELFPAY ==
[2020-05-08 13:05] VITALS: BMI 40.0
--- NOTE | 2020-05-17 06:31 | ECHOD_ITS ---
Reason For Study: DYSPNEA/SOB Procedure This was a 2D Doppler, Color Flow transthoracic echocardiogram. Exam performed in department. Left Ventricle Normal LV size. Mid cavitary false tendon noted. Left ventricular systolic function is normal. The estimated ejection fraction is 65 %. Stage 1 diastolic dysfunction. No regional wall motion abnormalities noted. Right Ventricle Normal RV size. Normal systolic function. Atria Normal left atrium. Normal right atrium. Mitral Valve Normal mitral valve. Tricuspid Valve Normal tricuspid valve. Mild (1+) tricuspid valve insufficiency. Pulmonary artery systolic pressure is 34 mmHg. Aortic Valve Normal aortic valve. Trisinus/trileaflet aortic valve. Pulmonic Valve Normal pulmonic valve. Great Vessels Normal aortic root. The pulmonary artery is normal size. Normal inferior vena cava. Pericardium/Pleural No pericardial effusion. MMode/2D Measurements & Calculations LVIDd: 4.2 cm IVSd: 1.0 cm LVOT diam: 2.0 cm LVIDs: 3.0 cm LVPWd: 1.0 cm LVOT area: 3.0 cm2 RVDd: 3.2 cm FS: 28.9 % Ao root diam: 3.1 cm LAV(MOD-bp): 50.7 ml LA A4 area: 16.8 cm2 LAV(MOD-bp) Indexed: 26.2 ml/m2 LAV(MOD-sp2): 61.2 ml LAV(MOD-sp4): 41.9 ml LA dimension(2D): 3.6 cm RA A4 area: 12.6 cm2 Time Measurements MV dec time: 0.34 sec Doppler Measurements & Calculations MV E max alonso: 115.0 cm/sec Lat Peak E' Alonso: 5.9 cm/sec Med Peak E' Alonso: 7.0 cm/sec MV A max alonso: 151.1 cm/sec E/E' lat: 19.6 E/E' med: 16.5 MV E/A: 0.76 Ao V2 max: 206.0 cm/sec LV V1 max: 147.1 cm/sec SV(LVOT): 101.9 ml Ao max P.0 mmHg LV V1 max P.7 mmHg Ao V2 mean: 137.1 cm/sec LV V1 mean P.4 mmHg Ao mean P.4 mmHg LV V1 mean: 98.6 cm/sec Ao V2 VTI: 47.0 cm LV V1 VTI: 33.6 cm DAVID(I,D): 2.2 cm2 DAVID(V,D): 2.2 cm2 PA V2 max: 92.7 cm/sec TR max alonso: 275.3 cm/sec TR max P.3 mmHg Interpretation Summary Normal LV size. Left ventricular systolic function is normal. The estimated ejection fraction is 65 %. Stage 1 diastolic dysfunction. Structurally normal valves. Ordering Physician: Dian Jones Referring Physician: Frank Moore Performed By: Claudia Carlin, WILLIAN, RVT
--- NOTE | 2020-05-17 11:38 | STRESSREP ---
Stress Test Report Pharmacologic myocardial perfusion stress test. 74-year-old lady with a history of chest pain. Stress protocol: Resting KG demonstrates sinus bradycardia with a right bundle branch block and a rate of 56 bpm is noted. Resting blood pressure is 118/68 mmHg. 0.4 mg of regadenoson was infused per usual protocol followed by rapid intravenous saline flush injection continuous EKG monitoring was performed. At rest there were no ST or T wave changes noted to suggest abnormal flow reserve at peak infusion nonspecific ST-T wave changes were noted with no meet the criteria for ischemia. The resting blood pressure is 118/68 with a final blood pressure 114/64. Myocardial perfusion protocol. 14.1 mCi of technetium 99m sestamibi was injected at rest. 0.4 mg of regadenoson was infused per usual protocol peak infusion 44.4 mCi of technetium 99m sestamibi was injected stress images were obtained stress and rest images were reconstructed and compared in the short axis vertical and horizontal long axis. Gated images were also obtained Perfusion SPECT analysis: Review of the stress images demonstrate normal uptake of tracer noted in all areas of myocardium the resting images similar demonstrate normal uptake of tracer noted in all areas of the myocardium. No reversibility is noted suggest ischemia no previous infarct is noted. Gated SPECT analysis: The gated ejection fraction is 88%. Conclusion: Normal pharmacologic myocardial perfusion stress test. Preserved ejection fraction.
== END ==
PROVIDERS: PCP Student in an Organized Health Care Education/Training Program; Referring Provider Physician Assistant Medical; Visit Provider Physician Assistant Medical
DX: I50.32 Chronic diastolic (congestive) heart failure (principal); R06.00 Dyspnea, unspecified
CPT/HCPCS: 78452; 93017; 93306; A9500; A4216; J2785

== ENCOUNTER 2020-10-29 12:00 | Outpatient (RCR) | payer MEDICARE, OTHER, SELFPAY ==
[2020-05-08 13:05] VITALS: BMI 40.0
--- NOTE | 2020-09-13 11:28 | HP.PTEVAL ---
Patient's Visit Information CIARA HODGES is a 75 year old F referred to Physical Therapy by Dr. Hunter Morales DO with a diagnosis of LEG WEAKNESS. Date of Evaluation: 09/13/20 Physical Therapist: Pooja Yoon PT, Cert MDT - Visit Plan Frequency: 2-3x /Week Duration: 4-6 Weeks Plan: AQUATIC THERAPY FOR PAIN RELEIF, POSTURE CORRECTION/STRENGTHENING, INSTRUCTION IN APPROPRIATE BODY MECHANICS AND ACTIVITY MODIFICATIONS. DLS STARTING WITH A NEUTRAL SPINE PROGRESSING ROM TOLERATED. AUGUSTO LE ROM, STRETCHING AND STRENGTHENING. HEP INSTRUCTION. - Subjective Work/Leisure: RETIRED. Present symptoms: LOW BACK PAIN AND AUGUSTO LEG PAIN. PATIENT REPORTS HER BACK GIVES HER FITS. STATES SHE IS ON [facility] MEDIC[facility] AND HER FOOT PAIN IS BETTER. SHE REPORTS SHE HAS A LOT OF WEAKNESS IN HER LEGS. Present since: CHRONIC FOR YEARS. PATIENT REPORTS INCREASED AUGUSTO LE WEAKNESS. STATES SHE WAS VERY SEDENTARY DURING THE PANDEMIC AND DIDN'T EVEN GO TO THE GROCERY STORE. ONLY OCCASSIONALLY GOES TO THE STORE NOW STATING SHE GETS SO TIRED SHE CAN BARELY GET THROUGH. Pain Scale: WORST 6/10, LEAST 2/10. Currently: 3/10. Commenced as a result of: ARTHRITS. Symptoms at onset: BACK. Worse: WALKING, STANDING. STANDING IN KITCHEN TO COOK, GROCERY SHOPPING, ANY ACTIVITY. VERY HARD TO PREPARE FOOD BECAUSE CAUSES A LOT OF BACK PAIN. Better: SITTING, HOT SHOWERS, LYING DOWN, TRAMADOL. Disturbed sleep: YES. Previous history/Previous treatment: AQUATIC THERAPY, RAY'S WITH LAST ONE BEING OVER A YEAR AGO. HAVING ANOTHER RAY THIS MONTH WITH DR. CHEEMA. NO BACK SURGERY. NO CHIROPRACTOR. Coughing/sneezing/straining: NEGATIVE. Gait: VERY PAINFUL. SLOW. DISTANCE LIMITED. NORMALLY DOESN'T WALK OUTSIDE HOME WITHOUT CANE AND USES HER CANE ALMOST CONSTANTLY IN THE HOUSE NOW TOO. ONE STEP INTO HOUSE AND THAT STEP IS A CHALLENGE. PATIENT REPORTS SHE HAS NOT BEEN HAVING EPISODES OF HER ANKLES GIVING AWAY LIKE BEFORE. Difficulty initiating urinatin: NO. Accidents: NO. Unexplained weight loss: NO. Imaging: NONE RECENT. PMH: STROKE JUNE 2017. [place] TKR'S - RIGHT KNEE ABOUT 6 MONTHS AGO AND LEFT KNEE 2.5 YEARS AGO. PATIENT C/O INCREASED L KNEE PAIN RECENTLY AND SWELLING. STATES SHE TWISTED HER KNEE IN THE SHOWER AND FELT SOMETHING POP SEVERAL MONTHS AGO AND ALEJANDRA'T PENDING WITH DR. GUSTAFSON. PATIENT REPORTS HER BLOOD PRESSURE HAS BEEN UNDER CONTROL FOR A COUPLE WEEKS NOW. OTHER: PATIENT REPORTS HER LEGS ARE REALLY WEAK AND SHE THINKS IT IS COMING FROM HER BACK AND HER DR. HUNTER MORALES TOLD HER SHE NEEDS TO GET BACK TO THERAPY. PATIENT REPORTS SHE THINKS THERE IS A POSSABILITY SHE WILL BE ABLE TO GET A MEMBERSHIP TO CONTINUE WATER EX POST THERAPY. PATIENT REPORTS THAT SHE ENJOYED DOING SOME GARDENING LAST YEAR BUT THIS YEAR SHE DOESN'T HAVE THE STRENGTH TO HELP WITH IT. - Objective Sitting/Standing Posture: POOR. AUGUSTO GENU VALGUS. MILD INCREASED TRUNK FLEXION. Active Correction of posture: WORSE. Other Observations: INDEP GAIT INTO PT WITH STRAIGHT CANE. DECREASED CADANCE, DECREASED AUGUSTO STRIDE LENGTH AND LIMPING ON RIGHT LE. PATIENT LURCHES FROM SIDE TO SIDE AND HAS DIFFICULTY MAKING IT 300 FEET BACK TO A TREATMENT ROOM. PATIENT IS VERY UE DEPENDENT TO TRANSFER FROM SIT TO STAND AND REVERSE. SHE IS UNABLE TO SLS ON EITHER LEG FOR MORE THAN A SECOND OR TWO WITHOUT UE ASSIST. THIS PT RECOMMENDS USE OF AD AT ALL TIMES FOR SAFEY. Motor deficit: AUGUSTO LE WEAKNESS. AUGUSTO LE STRENGTH IS GROSSLY 4-/5 WITH MMT'ING. Sensory deficit: DECREASED LIGHT TOUCH AUGUSTO LATERAL KNEES. ROM deficit: WFL WITH FULL AUGUSTO KNEE EXT AND FLEX TO 120 DEG RIGHT AND 116 DEG LEFT. Reflexes: NT. Dural Signs: NEGATIVE AUGUSTO LE'S. Lumbar mvmt loss: flex - NIL. ext - MOD. R SG - MOD. L SG - BRENDA. Core strength: POOR. Palpation: MILD TENDERNESS WITH PALPATION OF LOWER LUMBAR SPINE. - Goals Goal 1:: DECREASE C/O LOW BACK AND LEG PAIN Goal Time Frame: 4-6 Weeks Goal 2:: IMPROVE STANDING AND WALKING FUNCTION Goal Time Frame: 4-6 Weeks Goal 3:: INSTRUCT IN PROPHYLAXIS Goal Time Frame: 4-6 Weeks - Anticipated Interventions Patient/Client Instruction: Educate patient on: Condition, Plan of Care, Risk Factors For the Purpose of:: To improve self management Therapeutic Exercise to Include: Strength training, Body mechanics, Postural training, Flexibilty training, Gait and locomotor training, Neuromotor development, In an aquatic setting, Dynamic Lumbar Stabilization For the Purpose of:: To decrease pain, To improve muscle performance and motor function, To increase tolerance to activity/condition/position, To improve ability of physical actions for home/community/work/leisure, To improve gait and locomotor functions Thank you for the opportunity to evaluate your patient. For Medicare and Medicare HMO plans, please review the plan of care and approve it. It will need to be FAXED BACK to us at [phone] for Medicare purposes. For Medicare only, by signing this I certify the plan of care. Please let me know if there are questions or concerns regarding this plan of care. Physician Signature: Date:
--- NOTE | 2020-10-29 12:33 | HP.PTDCSUM_ITS ---
It has been my pleasure to treat CIARA HODGES referred by Dr. Frank Moore DO, with the diagnosis of LEG WEAKNESS for a total of 10 visit(s). Discharge Date: 10/29/20 Please see the following information for a summary of their discharge status. Subjective: PATIENT REPORTS SHE FEELS STRONGER. STATES SHE AND HER HAVE BEEN WORKING ON THE HOUSE - CUTTING ON CONCRETE BOARD AND PUTTING [place] UP - HELPS . PATIENT REPORTS SHE WALKS WITHOUT HER CANE MOST OF THE TIME NOW. PATIENT REPORTS SHE TALKED TO HER SON ABOUT EITHER GETTING A MEMBERSHIP HERE OR AT THE [facility] TO CONTINUE INDEP WATER EX. Lumbar Spine Pain Intensity (Out of 10): 2 % Improvement: 50 Objective/Function: PATIENT WAS SEEN TODAY FOR RE-ASSESSMENT OF PROGRESS TOWARD THE SET PT GOALS AND THE NEED FOR FURTHER PHYSICAL THERAPY VS READINESS FOR DISCHARGE. PATIENT REPORTS FEELING STRONGER AND ENJOYS AQUATI THERAPY BUT STILL HAS GREAT weakness and DIFFICULTY WITH ABILITY to recruit abdominals. Often over-correcting into excessive LB ext instead of neutral spine. Poor awareness. Often arrives late or exactly on time with an unwillingness to arrive early to warm-up/complete several tasks I before/after Rx, despite encouragement. UPON EXAM TODAY: PATIENT DESIREE'S IMPROVED BALANCE AND CADANCE WITH GAIT AND NOT CANE DEPENDENT NOW. ABLE TO EASILY MAKE IT BACK TO TREATMENT ROOM X 300 FEET TODAY WITHOUT COMPLAINT. SHE IS ALSO NOW ABLE TO TRANSFER FROM SIT TO STAND WITHOUT UE ASSIT. SHE IS STILL ONLY ABLE TO SLS ON EA LE X 2-3 SEC AND HER CORE STRENGTH IS POOR. AUGUSTO LE STRENGTH IS GROSSLY 4/5 EXCEPT HIPS 4-/5. EDUCATED PATIENT ABOUT CONTINUED FALL RISK AND NEED FOR CANE AT ALL TIMES. Goal 1:: DECREASE C/O LOW BACK AND LEG PAIN Goal 2:: IMPROVE STANDING AND WALKING FUNCTION Goal 3:: INSTRUCT IN PROPHYLAXIS Plan: D/C TO INDEP EX PATIENT IS WILLING/ABLE. PATIENT AGREEABLE. If there are questions or concerns regarding this patient's physical therapy, please feel free to call me at [phone]. Thank you for the referral of this patient. Sincerely, Pooja Yoon, PT, Cert MDT Balance/Gait/Functional tests - Balance/Special Test Scores Lower Extremity Functional Score: 50
== END 2020-10-29 14:19 | disposition home or self-care (01) ==
LOC: PT 12:00
PROVIDERS: PCP Student in an Organized Health Care Education/Training Program; Referring Provider Student in an Organized Health Care Education/Training Program; Visit Provider Student in an Organized Health Care Education/Training Program
DX: R29.898 Other symptoms and signs involving the musculoskeletal system (principal)
CPT/HCPCS: 97112; 97113; 97162; 97164

== ENCOUNTER 2021-09-17 10:30 | Outpatient (RCR) | payer MEDICARE, OTHER, SELFPAY ==
--- NOTE | 2021-08-19 13:05 | HP.PTEVAL ---
Patient's Visit Information CIARA HODGES is a 76 year old F referred to Physical Therapy by Dr. Frank Moore DO with a diagnosis of LE weakness. Date of Evaluation: 08/19/21 Physical Therapist: Leobardo Hadley, PT, ATC - Visit Plan Frequency: 2x /Week Duration: 4-6 Weeks Plan: B LE strengthening, balance, core strengthening, nustep, and HEP. - Subjective Pt reports she has noticed her LE's becoming progressively weaker over the past year. Pt reports she has not fallen yet, but notes her legs feel so weak at times that it feels like they might give out. Pt reports she has B TKA performed in 2014 and 2018, which may be some of the cause. Pt reports good sensation in her feet, and no tingling or numbness in her legs. Pt reports she only has one step into her house, but notes she has difficulty with negotiating that secondary to weakness. Pt reports she has used a cane for the last 3 years secondary to weakness and unsteadiness. Pt reports she would like to be able to get off the floor Independently. Pt reports she likes to go on short walks but is limited secondary to LE weakness. Pt reports she is not in any pain at this time. - Objective Neuro: B LE sensation is WNL to light touch. B patellar reflex= 1/3. ROM: B LE's are WFL when compared bilaterally. MMT: B LE's are grossly 4-/5 throughout. Gait: Pt is able to ambulate 440 feet with CGAx1 until needing to sit secondary to weakness. Transfers: Pt is I with sit to stand but requires multiple attempts while performing that task. stairs: Pt is able to negotiate 10 stairs with 2 handrails reciprocally - Balance/Special Test Scores Lower Extremity Functional Score: 39 - Goals Goal 1:: Increase B LE strength x 1 grade to aid with stair negotiation Goal Time Frame: 4-6 Weeks Goal 2:: Pt will be able to ambulate greater than 600 feet to aid with community ambulation Goal Time Frame: 4-6 Weeks Goal 3:: I with HEP Goal Time Frame: 4-6 Weeks - Rehabilitation Potential Physical Therapy Diagnosis: Pt has B LE weakness, difficulty with stair negotiation, and difficulty with prolonged ambulation secondary to debilitation Rehabilitation Potential: Good - Anticipated Interventions Patient/Client Instruction: Educate patient on: Condition, Plan of Care For the Purpose of:: To improve self management Therapeutic Exercise to Include: Strength training, Endurance training, Balance training, Flexibilty training, Gait and locomotor training, Dynamic Lumbar Stabilization For the Purpose of:: To increase ROM, To improve muscle performance and motor function Thank you for the opportunity to evaluate your patient. For Medicare and Medicare HMO plans, please review the plan of care and approve it. It will need to be FAXED BACK to us at [phone] for Medicare purposes. For Medicare only, by signing this I certify the plan of care. Please let me know if there are questions or concerns regarding this plan of care. Physician Signature: Date:
--- NOTE | 2021-09-17 12:02 | HP.PTDCSUM ---
It has been my pleasure to treat CIARA HODGES referred by Dr. Frank Moore DO, with the diagnosis of LE weakness for a total of 8 visit(s). Discharge Date: Please see the following information for a summary of their discharge status. Subjective: Pt reports she feels much improved. No pain today % Improvement: 80 Objective/Function: R LE strength is 5/5 throughout. L LE strength is 4+/5 throughout. Pt is I with HEP. Pt is able to ambulate 340 feet must stop secondary to knee pain. Pt has made significant gains at this time and is I enogh to continue at home Goal 1:: Increase B LE strength x 1 grade to aid with stair negotiation Goal Progress: Goal Met Goal 2:: Pt will be able to ambulate greater than 600 feet to aid with community ambulation Goal 3:: I with HEP Goal Progress: Goal Met Plan: Discharge to [facility] If there are questions or concerns regarding this patient's physical therapy, please feel free to call me at [phone]. Thank you for the referral of this patient. Sincerely, Leobardo Hadley, PT, ATC Balance/Gait/Functional tests - Balance/Special Test Scores Lower Extremity Functional Score: 39
== END 2021-09-17 12:08 | disposition home or self-care (01) ==
LOC: PT 10:30
PROVIDERS: PCP Student in an Organized Health Care Education/Training Program; Referring Provider Student in an Organized Health Care Education/Training Program; Visit Provider Student in an Organized Health Care Education/Training Program
DX: M62.81 Muscle weakness (generalized) (principal)
CPT/HCPCS: 97110; 97161; 97164

== ENCOUNTER → 2022-04-06 | Outpatient (CLI) | payer MEDICARE, OTHER, SELFPAY | END | disposition home or self-care (01) | PROVIDERS: PCP Student in an Organized Health Care Education/Training Program; Referring Provider Otolaryngology; Visit Provider Otolaryngology | DX: B37.9 Candidiasis, unspecified (principal) | CPT/HCPCS: 87070 ==

== ENCOUNTER → 2022-06-22 | Outpatient (CLI) | payer MEDICARE, OTHER, SELFPAY | END | disposition home or self-care (01) | LOC: PSN 12:29 | PROVIDERS: PCP Student in an Organized Health Care Education/Training Program; Referring Provider Physician Assistant Medical; Visit Provider Physician Assistant Medical | DX: R00.2 Palpitations (principal) | CPT/HCPCS: 93225; 93226 ==

== ENCOUNTER 2022-07-26 18:11 | Observation (INO) | payer MEDICARE, OTHER, SELFPAY ==
[2022-07-26] VITALS (9 sets, daily range): BP systolic 140–162; BP diastolic 60–73; PULSE 60–68; RESP 14–22; TEMP 36.4–36.6; O2SAT 94–98; BMI 38.0; BMI 37.5
--- NOTE | 2022-07-26 18:20 | ED.RN ---
DISCUSSED W/ DR RAO, NO STROKE ACTIVATION.
--- NOTE | 2022-07-26 18:44 | CT_ITS ---
We are attempting to reach an attending provider to discuss findings. An addendum with communication details will be sent when the communication is complete. STUDY: CTA HEAD AND NECK WITH CONTRAST REASON FOR EXAM: Female, 77 years old. Neuro deficit, acute, stroke suspected RADIATION DOSAGE (If Supplied By Facility): CTDIvol = ( 32.77 ) mGy, DLP = ( 1585.95 ) mGycm TECHNIQUE: CT angiography was performed with a multi-detector CT scanner. Data acquisition was obtained from the skull base through the vertex following intravenous administration of IV 100mL Isovue-370. MIP images were reconstructed from the axial data set. Post-processing of the angiographic images was performed, with multiplanar reformation and 3D reconstruction. Individualized dose optimization techniques were used for this CT. COMPARISON: No relevant priors. FINDINGS: Normal bilateral petrous carotid arteries. There is calcified plaque formation of the right cavernous carotid artery, with a mild stenosis (less than 50%). There is calcified plaque formation of the left cavernous carotid artery, with a mild stenosis (less than 50%). Normal right A1 segments of the anterior cerebral artery. Normal left A1 segments of the anterior cerebral artery. Normal intact anterior communicating artery (ACOM). Normal bilateral A2 segments of the anterior cerebral arteries. Normal right M1 and M2 segments of the middle cerebral arteries, with a normal M1 bifurcation. Normal left M1 and M2 segments of the middle cerebral arteries, with a normal M1 bifurcation. Normal right posterior communicating artery (PCOM). Normal left posterior communicating artery (PCOM). Normal bilateral vertebral arteries. Normal basilar artery with a normal basilar bifurcation. The visualized bilateral superior cerebellar (SCA) arteries are normal. Normal bilateral P1, P2 and visualized P3 segments of the posterior cerebral arteries. There is no demonstrated aneurysm of the [place] of [place]. There is no demonstrated acute abnormality of the visualized brain. AORTIC ARCH: Normal visualized aortic arch. Normal origins of the brachiocephalic, left common carotid, and left subclavian arteries. RIGHT CAROTID ARTERIES: There is marked atherosclerotic tortuous elongation of the right common carotid artery. Normal right common carotid bulb. Normal origin of the right internal carotid (ICA) artery without a hemodynamically significant stenosis. There is marked atherosclerotic tortuous elongation of the cervical portion of the right internal carotid artery. Normal origin of the right external carotid artery (ECA). LEFT CAROTID ARTERIES: There is marked atherosclerotic tortuous elongation of the left common carotid artery. Normal left common carotid bulb. Normal origin of the left internal carotid (ICA) artery without a hemodynamically significant stenosis. There is marked atherosclerotic tortuous elongation of the cervical portion of the left internal carotid artery. Normal origin of the left external carotid artery (ECA). VERTEBRAL ARTERIES: Normal bilateral vertebral arteries. CT/STROKE CTA Head AND Neck W/Con IMPRESSION: No acute abnormalities. Calcified plaque in both cavernous carotid arteries with mild bilateral stenosis. Markedly tortuous carotid arteries with no focal stenoses. No large vessel occlusions. Electronically Signed: Tino Mcclellan MD at 19:38 EDT ,
--- NOTE | 2022-07-26 18:44 | EKG12_ITS ---
Test Reason : DYSRHYTHMIA Blood Pressure : / mmHG Vent. Rate : 063 BPM Atrial Rate : 063 BPM P-R Int : 252 ms QRS Dur : 132 ms QT Int : 460 ms P-R-T Axes : 045 040 009 degrees QTc Int : 470 ms Sinus rhythm with 1st degree A-V block Right bundle branch block Abnormal ECG Confirmed by ENA MORRISON, CHRIS ([id number]), desk editor JESÚS GUIDRY ([id number]) on 07/27/2022 10:19:17 AM Referred By: ELEANOR Confirmed By:CHRIS SUTHERLAND MD
--- NOTE | 2022-07-26 18:47 | EDS_ITS ---
HPI <CHAIM Stauffer - Last Filed: 07/26/22 20:18> History of Present Illness Chief Complaint: Neuro S/Sx Narrative Narrative: Patient is a 77-year-old female with history of hypertension, history of CVA in June 23, hypertension, who presents to the emergency department for numbness and tingling to the left side of her mouth, possible facial droop, per her she had difficulty getting words out today that started around 4 PM today. Patient was then anxious, came to the emergency department. Second however she still has some numbness and tingling to the left side of her mouth. Patient states she does have some residual left-sided weakness from her stroke in 2018. She has not had any recent stroke or TIA since June 2017. She denies any nausea or vomiting. She denies any other symptoms at this time. Patient is also complaining of bilateral leg swelling for the last 5 days. PFS <CHAIM Stauffer - Last Filed: 07/26/22 20:18> [facility] Medical History Abnormal electrocardiogram Asthma Breast cancer (2017) Chronic diastolic (congestive) heart failure Chronic pain syndrome Diverticulosis Essential (primary) hypertension GERD (gastroesophageal reflux disease) Gout Ischemic cerebrovascular accident (CVA) (06/18/17) Obesity Osteoarthritis Pure hypercholesterolemia Right bundle branch block Home Medications gabapentin 300 mg capsule 300 mg PO QHS pain manangement 10/18/13 [History Last Taken 03/07/18 04:00] hydrocortisone 2.5 % topical cream 1 applicatio topical DAILY PRN Itching 06/18/17 [History Last Taken Unknown] albuterol sulfate 90 mcg/actuation aerosol inhaler (Ventolin HFA) 2 puff inhalation Q6H PRN Asthma 07/21/17 [History Last Taken Unknown] anastrozole 1 mg tablet 1 mg PO DAILY BREAST CA 01/18/18 [History Last Taken 03/07/18 04:00] carvedilol 12.5 mg tablet 12.5 mg PO BID BP 01/18/18 [History Last Taken 03/07/18 04:00] allopurinol 300 mg tablet 300 mg PO DAILY gout 08/23/18 [History Last Taken Unknown] gabapentin 100 mg capsule 100 mg PO DAILY pain management 08/23/18 [History Last Taken Unknown] amlodipine 5 mg tablet 5 mg PO DAILY #90 tabs 02/29/20 [Rx Last Taken Unknown] cholecalciferol (vitamin D3) 25 mcg (1,000 unit) tablet 1,000 unit PO DAILY 05/08/20 [History Last Taken Unknown] cyanocobalamin (vitamin B-12) 100 mcg tablet (Vitamin B-12) 100 mcg PO DAILY 05/08/20 [History Last Taken Unknown] diclofenac sodium 1 % topical gel 2 g topical 4X/DAY PRN 05/08/20 [History Last Taken Unknown] mometasone 100 mcg/actuation HFA aerosol inhaler (Asmanex HFA) 2 puff inhalation DAILY 05/08/20 [History Last Taken Unknown] tramadol 50 mg tablet 50 mg PO Q8H PRN 05/08/20 [History Last Taken Unknown] furosemide 40 mg tablet 40 mg PO QDAY DIURETIC #90 tabs 09/17/20 [Rx Last Taken Unknown] nitroglycerin 0.4 mg sublingual tablet 0.4 mg sublingual Q5-15M PRN chest pain #25 tabs 03/28/21 [Rx Last Taken Unknown] losartan 100 mg tablet 100 mg PO DAILY #90 tabs 11/14/21 [Rx Last Taken Unknown] omeprazole 40 mg capsule,delayed release 40 mg PO DAILY 11/14/21 [History Last Taken Unknown] oxybutynin chloride 5 mg tablet tablet PO 11/14/21 [History Last Taken Unknown] Allergy/AdvReac Type Severity Reaction Status Date / Time bupivacaine Allergy NEEDS Verified 07/26/22 18:14 FOLLOW-UP Gadolinium-MRI Contrast Allergy Chest Verified 07/26/22 18:14 Medium tightness [MRI] ibandronate sodium Allergy Rash Verified 07/26/22 18:14 [From Boniva] levofloxacin [From Levaquin] Allergy Swelling Verified 07/26/22 18:14 lidocaine Allergy NEEDS Verified 07/26/22 18:14 FOLLOW-UP Penicillins Allergy Rash Verified 07/26/22 18:14 procaine [From Novocain] Allergy NEEDS Verified 07/26/22 18:14 FOLLOW-UP mannitol [From Reclast] AdvReac Pain in Verified 07/26/22 18:14 joints water for injection,sterile AdvReac Pain in Verified 07/26/22 18:14 [From Reclast] joints zoledronic acid AdvReac Pain in Verified 07/26/22 18:14 [From Reclast] joints Family History Mother CVA (cerebral vascular accident) Heart disease Father Heart disease Brother Cancer Other Breast cancer Surgical History History of arthroplasty of left knee History of lumpectomy of left breast (11/2016) History of total abdominal hysterectomy History of total right knee replacement Hx of cholecystectomy Social History Smoking Status: Never smoker how long ago did patient quit smokin years ago second hand exposure: Yes alcohol intake: never substance use type: does not use caffeine: Yes Type: coffee Number of servings: 3 ROS <CHAIM Stauffer - Last Filed: 07/26/22 20:18> ROS ED ROS Narrative Constitutional: Negative for fever, chills, weight loss, weakness Eyes: Negative for vision loss, vision change, double vision ENT: Negative for any sore throat, ear pain, congestion Cardiovascular: Negative for any chest pain, tightness, palpitations Respiratory: Negative for any cough, sputum production, hemoptysis, dyspnea, dyspnea on exertion, orthopnea Gastrointestinal: Negative for any abdominal pain, nausea, vomiting, diarrhea, constipation, blood in stool, blood in vomit : Negative for any urinary frequency, dysuria, retention, blood in urine Muscle skeletal: Negative for any muscle joint pain, stiffness, myalgias, arthralgias, neck pain, back pain Neurological: Negative for any headache, syncope, dizziness. Positive for numbness and tingling in the left side of the mouth, positive for difficulty speaking Skin: Negative for any rashes, lumps, itching, abrasions, lacerations Psychiatric: Negative for any depression, anxiety, stress, suicidal ideation, homicidal ideation Hematologic: Negative for any easy bruising, excessive bruising, easy bleeding Allergies: Negative for any eczema, hives, rash EXAM <CHAIM Stauffer - Last Filed: 07/26/22 20:18> Physical Exam Narrative Exam Narrative: Vital signs reviewed. Patient is alert and orient x4. Patient is in no distress. Patient is having no difficulty walking, patient speaking complete and clear sentences. HEET: Head normocephalic atraumatic, TMs clear bilaterally. Posterior pharynx is clear, moist mucous membranes. Nares clear bilaterally. Patient has no faci al droop. Slight numbness and tingling Neck: Supple with no lymphadenopathy or tenderness. No signs of meningismus, negative jolt sign. Cardiac: Regular rate and rhythm no murmurs gallops or rubs, equal peripheral pulses bilaterally. Respiratory: Lungs clear to auscultation bilaterally. No chest tenderness. Abdomen: Soft, nontender, nondistended. No abdominal bruit or pulsatile masses. No hepatosplenomegaly Extremities: No peripheral edema, no signs of gross trauma or deformity. Active full range of motion of all extremities. Neuro: Cranial nerves II through XII intact, no focal neurological deficits. Patient's NIH stroke scale was 1 for the sensation difference to the left side of her mouth. There is no facial droop. Patient has no expressive aphasia. Patient is acting appropriate states she does feel better than what she did at 4 PM. Patient does have slight weakness to her left leg however this is chronic secondary to her previous stroke in 2018. Skin: Clean dry and intact with no rash, purpura, petechiae, vesicles or pustules. Backs/flank: No CVA tenderness, no midline spinal tenderness, no deformity. Psych: Normal mood and affect. No SI, HI or acute psychosis. Const Vital Signs: 07/26/22 18:14 07/26/22 18:53 07/26/22 18:44 Temperature 97.5 F L Temperature Source Temporal Pulse Rate 68 68 Respiratory Rate 14 14 Blood Pressure 162/73 H Blood Pressure Mean 102 Pulse Ox 97 94 95 Oxygen Delivery Method Room Air Room Air Room Air 07/26/22 19:14 07/26/22 19:29 07/26/22 20:00 Temperature Temperature Source Pulse Rate 68 66 66 Respiratory Rate 16 16 16 Blood Pressure 144/64 H 143/62 H 140/60 H Blood Pressure Mean 90 89 86 Pulse Ox 97 98 98 Oxygen Delivery Method Room Air Room Air Room Air 07/26/22 20:18 Temperature 97.7 F L Temperature Source Oral Pulse Rate 63 Respiratory Rate 22 H Blood Pressure 141/69 H Blood Pressure Mean 93 Pulse Ox 98 Oxygen Delivery Method Room Air <Dr. Michael Mosqueda DO - Last Filed: 07/26/22 21:28> Physical Exam Const Vital Signs: 07/26/22 18:14 07/26/22 18:53 07/26/22 18:44 Temperature 97.5 F L Temperature Source Temporal Pulse Rate 68 68 Respiratory Rate 14 14 Blood Pressure 162/73 H Blood Pressure Mean 102 Pulse Ox 97 94 95 Oxygen Delivery Method Room Air Room Air Room Air 07/26/22 19:14 07/26/22 19:29 07/26/22 20:00 Temperature Temperature Source Pulse Rate 68 66 66 Respiratory Rate 16 16 16 Blood Pressure 144/64 H 143/62 H 140/60 H Blood Pressure Mean 90 89 86 Pulse Ox 97 98 98 Oxygen Delivery Method Room Air Room Air Room Air 07/26/22 20:18 Temperature 97.7 F L Temperature Source Oral Pulse Rate 63 Respiratory Rate 22 H Blood Pressure 141/69 H Blood Pressure Mean 93 Pulse Ox 98 Oxygen Delivery Method Room Air MDM <CHAIM Stauffer - Last Filed: 07/26/22 20:18> [facility] Lab Data Labs: Laboratory Results - last 24 hr 07/26/22 07/26/22 07/26/22 18:47 18:47 18:47 WBC 7.4 RBC 4.02 L Hgb 12.1 Hct 37.8 MCV 94.0 MCH 30.1 MCHC 32.0 RDW Std Deviation 47.2 H RDW Coeff of [place] 13.7 Plt Count 179 MPV 12.6 H Immature Gran % (Auto) 0.300 Neut % (Auto) 61.8 Lymph % (Auto) 25.1 [place] % (Auto) 7.6 Eos % (Auto) 4.3 Baso % (Auto) 0.9 Absolute Neuts (auto) 4.6 Absolute Lymphs (auto) 1.86 Nucleated RBC % 0 PT 12.1 INR 0.9 APTT 28.3 Sodium 144 Potassium 3.6 Chloride 109 H Carbon Dioxide 30.0 Anion Gap 5 BUN 14 Creatinine 0.88 Estim Creat Clear Calc 41.00 Est GFR (MDRD) Af Amer 79 Est GFR (MDRD) Non-Af 65 BUN/Creatinine Ratio 15.8 Glucose 125 H Calcium 8.9 Magnesium Troponin I High Sens 10 B-Natriuretic Peptide 07/26/22 07/26/22 18:47 18:47 WBC RBC Hgb Hct MCV MCH MCHC RDW Std Deviation RDW Coeff of [place] Plt Count MPV Immature Gran % (Auto) Neut % (Auto) Lymph % (Auto) [place] % (Auto) Eos % (Auto) Baso % (Auto) Absolute Neuts (auto) Absolute Lymphs (auto) Nucleated RBC % PT INR APTT Sodium Potassium Chloride Carbon Dioxide Anion Gap BUN Creatinine Estim Creat Clear Calc Est GFR (MDRD) Af Amer Est GFR (MDRD) Non-Af BUN/Creatinine Ratio Glucose Calcium Magnesium 2.1 Troponin I High Sens B-Natriuretic Peptide 221.3 H Radiography Diagnostic Testing: Clinical Impression(s) from Imaging Studies Head/Neck CTA 07/26/22 18:44 IMPRESSION: No acute abnormalities. Calcified plaque in both cavernous carotid arteries with mild bilateral stenosis. Markedly tortuous carotid arteries with no focal stenoses. No large vessel occlusions. Electronically Signed: Tino Mcclellan MD at 19:38 EDT Reading Location ID and State: [facility] / [place] , Service support , ADDENDUM: 07/26/221946 IMPRESSION: No acute abnormalities. Calcified plaque in both cavernous carotid arteries with mild bilateral stenosis. Markedly tortuous carotid arteries with no focal stenoses. No large vessel occlusions. N.B. : The above Results were Read Back by Tino Mcclellan MD to MD Panda, and understanding confirmed on 07/26/2022 19:40:53 (ET). Electronically Signed: Tino Mcclellan MD at 19:38 EDT Reading Location ID and State: [facility] / [place] , Service support , Chest X-Ray 07/26/22 19:15 IMPRESSION: Normal x-ray examination of the chest. Electronically Signed: Tino Mcclellan MD at 19:52 EDT Reading Location ID and State: [facility] / [place] , Service support , Treatment and Re-Evaluation :: Patient appears well, patient appears nontoxic, vital signs are stable. Patient presents to the emergency department for left-sided facial numbness as well as difficulty speaking that started at 4 PM today. Upon arrival, patient had less numbness and tingling, however her speech fully resolved. Patient NIH score was 1. Patient did receive a stroke work-up, patient is not a tPA candidate. Patient's laboratory studies show a normal CBC, chemistries were unremarkable. Patient's proBNP was elevated at 221.3, patient could have some fluid overload causing her legs to be edematous, there is no pitting edema. Patient is also on Norvasc which is a possibility of bilateral lower extremity swelling. Patient received a CTA of the head and neck concerning for any new stroke. Patient CTA of the head and neck shows no acute abnormalities, calcified plaque in both her venous carotid arteries with mild bilateral stenosis. Markedly tortuous carotid arteries with no focal stenosis. No large vessel occlusion. Patient's chest x- ray showed no acute process. Secondary to the patient's history of CVA in 2018, symptoms that not 100% resolved, the history of the slurred speech that has re solved, patient be diagnosed with a CVA/TIA work-up patient will need to be admitted to hospital for further work-up. <Dr. Michael oMsqueda, DO - Last Filed: 07/26/22 21:28> [facility] Narrative Medical decision making narrative: Patient appears well, patient appears nontoxic, vital signs are stable. Patient presents to the emergency department for left-sided facial numbness as well as difficulty speaking that started at 4 PM today. Upon arrival, patient had less numbness and tingling, however her speech fully resolved. Patient NIH score was 1. Patient did receive a stroke work-up, patient is not a tPA candidate. Patient's laboratory studies show a normal CBC, chemistries were unremarkable. Patient's proBNP was elevated at 221.3, patient could have some fluid overload causing her legs to be edematous, there is no pitting edema. Patient is also on Norvasc which is a possibility of bilateral lower extremity swelling. Patient received a CTA of the head and neck concerning for any new stroke. Patient CTA of the head and neck shows no acute abnormalities, calcified plaque in both her venous carotid arteries with mild bilateral stenosis. Markedly tortuous carotid arteries with no focal stenosis. No large vessel occlusion. Patient's chest x- ray showed no acute process. Secondary to the patient's history of CVA in 2018, symptoms that not 100% resolved, the history of the slurred speech that has resolved, patient be diagnosed with a CVA/TIA work-up patient will need to be admitted to hospital for further work-up. This patient was seen with a PA/[employer]IST Individually assessed they patient including history and physical. I have reviewed everything on the chart that is available and agree with the documentation provided by the PA/FORE[employer] BIOLOGY SPECIALIST including discussion about the assessment, treatment plan, discussion, and return precautions. Patient presenting with symptoms of TIA. She tells me that her symptoms are completely resolved at this point. Stroke work-up ultimately negative in the ER. Patient discussed with hospitalist for admission. Lab Data Labs: Laboratory Results - last 24 hr 07/26/22 07/26/22 07/26/22 18:47 18:47 18:47 WBC 7.4 RBC 4.02 L Hgb 12.1 Hct 37.8 MCV 94.0 MCH 30.1 MCHC 32.0 RDW Std Deviation 47.2 H RDW Coeff of [place] 13.7 Plt Count 179 MPV 12.6 H Immature Gran % (Auto) 0.300 Neut % (Auto) 61.8 Lymph % (Auto) 25.1 [place] % (Auto) 7.6 Eos % (Auto) 4.3 Baso % (Auto) 0.9 Absolute Neuts (auto) 4.6 Absolute Lymphs (auto) 1.86 Nucleated RBC % 0 PT 12.1 INR 0.9 APTT 28.3 Sodium 144 Potassium 3.6 Chloride 109 H Carbon Dioxide 30.0 Anion Gap 5 BUN 14 Creatinine 0.88 Estim Creat Clear Calc 41.00 Est GFR (MDRD) Af Amer 79 Est GFR (MDRD) Non-Af 65 BUN/Creatinine Ratio 15.8 Glucose 125 H Calcium 8.9 Magnesium Troponin I High Sens 10 B-Natriuretic Peptide 07/26/22 07/26/22 18:47 18:47 WBC RBC Hgb Hct MCV MCH MCHC RDW Std Deviation RDW Coeff of [place] Plt Count MPV Immature Gran % (Auto) Neut % (Auto) Lymph % (Auto) [place] % (Auto) Eos % (Auto) Baso % (Auto) Absolute Neuts (auto) Absolute Lymphs (auto) Nucleated RBC % PT INR APTT Sodium Potassium Chloride Carbon Dioxide Anion Gap BUN Creatinine Estim Creat Clear Calc Est GFR (MDRD) Af Amer Est GFR (MDRD) Non-Af BUN/Creatinine Ratio Glucose Calcium Magnesium 2.1 Troponin I High Sens B-Natriuretic Peptide 221.3 H Radiography Diagnostic Testing: Clinical Impression(s) from Imaging Studies Head/Neck CTA 07/26/22 18:44 IMPRESSION: No acute abnormalities. Calcified plaque in both cavernous carotid arteries with mild bilateral stenosis. Markedly tortuous carotid arteries with no focal stenoses. No large vessel occlusions. Electronically Signed: Tino Mcclellan MD at 19:38 EDT Reading Location ID and State: [facility] / [place] , Service support , ADDENDUM: 07/26/22 194 IMPRESSION: No acute abnormalities. Calcified plaque in both cavernous carotid arteries with mild bilateral stenosis. Markedly tortuous carotid arteries with no focal stenoses. No large vessel occlusions. N.B. : The above Results were Read Back by Tino Mcclellan MD to MD Panda, and understanding confirmed on 07/26/2022 19:40:53 (ET). Electronically Signed: Tino Mcclellan MD at 19:38 EDT , Chest X-Ray 07/26/22 19:15 IMPRESSION: Normal x-ray examination of the chest. Electronically Signed: Tino Mcclellan MD at 19:52 EDT , Discharge Plan Dx/Rx/DC Orders Clinical Impression: Brain TIA, History of stroke with current residual effects Disposition Disposition: Acute Care Hospital [facility] Discharge Date/Time: 07/26/22 21:20
[2022-07-26 19:06] LABS: Absolute Lymphocyte Count 1.86 X10^3/uL (0.83-4.51); Absolute Neutrophil Count 4.6 X10^3/uL (2.0-7.7); Basophil# 0.07 X10^3/uL; Basophil% 0.9 % (0-1); Eosinophil# 0.32 X10^3/uL; Eosinophils% 4.3 % (0-5); Hematocrit 37.8 % (37-47); Hemoglobin 12.1 g/dL (12.0-15.0); Lymphocyte # 1.86 X10^3/ul (0.83-4.51); Lymphocyte % 25.1 % (19-41); Mean Corpuscular Hgb 30.1 pg (27.0-32.0); Mean Platelet Vol. 12.6 fl (6.2-12.0); Monocyte# 0.56 X10^3/uL; Monocyte% 7.6 % (0-10); NRBC Flagged by Analyzer 0 % (0-5); Neutrophil # 4.57 X10^3/uL (2.7-7.7); Neutrophil % 61.8 % (47-70); Platelet Count 179 K/mm3 (150-450); RBC Distribution Width CV 13.7 % (11.6-14.6); RBC Distribution Width SD 47.2 fl (35.1-43.9); Red Blood Count 4.02 M/mm3 (4.2-5.4); White Blood Count 7.4 K/mm3 (4.4-11.0)
[2022-07-26 19:13] LABS: International Normalized Ratio 0.9; Partial Thromboplast Time 28.3 Seconds (24.1-36.2); Prothrombin Time (Protime)PT. 12.1 SECONDS (11.7-14.9)
--- NOTE | 2022-07-26 19:15 | RAD_ITS ---
STUDY: X-RAY CHEST REASON FOR EXAM: Female, 77 years old. Neuro deficit, acute, stroke suspected TECHNIQUE: Single AP portable view of the chest. COMPARISON: 05/08/2020. FINDINGS: The lungs are clear and expanded. There is no demonstrated pleural abnormality. Normal size heart. Normal mediastinum and nicole. Normal visualized pulmonary arteries. There is atherosclerotic tortuosity of the aortic arch and descending thoracic aorta. Normal visualized thoracic spine. Normal visualized ribs, clavicles, and shoulders. There is no demonstrated abnormality of the visualized soft tissue structures of the upper abdomen. RAD/Chest 1 View IMPRESSION: Normal x-ray examination of the chest. Electronically Signed: Tino Mcclellan MD at 19:52 EDT ,
[2022-07-26 19:21] LABS: Anion Gap 5 (5-15); BUN 14 mg/dL (7-18); BUN/Creat Ratio 15.8 RATIO (10-20); Calcium,Total 8.9 mg/dL (8.5-10.1); Chloride 109 mmol/L (98-107); Creatinine, Serum 0.88 mg/dL (0.55-1.02); EST Glomerular Filtration Rate 65 mL/min (>60); Est Glom Filt Rate - Afr Amer 79 mL/min (>60); Glucose 125 mg/dL (74-106); Potassium 3.6 mmol/L (3.5-5.1); Sodium Level 144 mmol/L (136-145); Troponin-I HS 10 pg/mL (3.0-54.0)
[2022-07-26 19:33] LABS: BNP,B-Type NATRIURETIC PEPTIDE 221.3 pg/mL (0-100)
--- NOTE | 2022-07-26 20:01 | PCM.HP.STD ---
HPI - General General Date of Admission: 07/26/22 Date of Service: 07/26/22 Chief Complaint: L sided facial paresthesias, ? droop, possible expressive aphasia. HPI Narrative The patient is a 77 y/o F w/ PMHx: Asthma, Hx Breast CA (unclear type), Chronic Diastolic CHF, HTN, HLD, Chronic pain syndrome, GERD, Obesity, Gout, Hx CVA recently 06/2017 (Chronic L sided deficits), Cardiac tachyarrhythmia of unclear type status post RFA but patient is unable to give any further details who presents to the [facility] ED on 07/26/22 with history of onset paresthesias to the left side of the mouth as well as possible facial droop and reportedly per difficulty getting her words out starting approximately 4 PM on day of presentation causing her to become very anxious and present to the ED for evaluation with ongoing mild paresthesias to the left side of the mouth and residual left-sided weakness which is from her prior stroke unchanged in addition to a vague complaint of lower extremity mild swelling over the last 5 days. In the ED NIHSS 1 for facial paresthesias otherwise sxs improved/resolved and upon hospitalist evaluation she notes complete resolution of paresthesias to the face. Work-up in the ED included T97.5, heart rate 68, BP initially 162/73 with most recent repeat 143/62, respiratory rate 14, 97% on room air, CBC with WC 7.4, hemoglobin 12.1, platelet 179 without marked shift, unremarkable coags, BMP with chloride 109, glucose 125, troponin 10, BNP 221.3, chest x-ray with no acute cardiopulmonary findings, CTA head and neck with no acute abnormalities with calcified plaque in both Carotid arteries and mild bilateral stenosis, markedly tortuous carotid arteries with no focal stenosis or any large vessel occlusions, EKG SR with 1AVB without acute evidence of ischemia. [facility] Medical History Abnormal electrocardiogram Asthma Breast cancer (2017) Chronic diastolic (congestive) heart failure Chronic pain syndrome Diverticulosis Essential (primary) hypertension GERD (gastroesophageal reflux disease) Gout Ischemic cerebrovascular accident (CVA) (06/18/17) Obesity Osteoarthritis Pure hypercholesterolemia Right bundle branch block Home Medications gabapentin 300 mg capsule 300 mg PO QHS pain manangement 10/18/13 [History Last Taken 03/07/18 04:00] hydrocortisone 2.5 % topical cream 1 applicatio topical DAILY PRN Itching 06/18/17 [History Last Taken Unknown] albuterol sulfate 90 mcg/actuation aerosol inhaler (Ventolin HFA) 2 puff inhalation Q6H PRN Asthma 07/21/17 [History Last Taken Unknown] carvedilol 12.5 mg tablet 12.5 mg PO BID BP 01/18/18 [History Last Taken 03/07/18 04:00] allopurinol 300 mg tablet 300 mg PO DAILY gout 08/23/18 [History Last Taken Unknown] gabapentin 100 mg capsule 100 mg PO DAILY pain management 08/23/18 [History Last Taken Unknown] amlodipine 5 mg tablet 5 mg PO DAILY #90 tabs 02/29/20 [Rx Last Taken Unknown] cholecalciferol (vitamin D3) 25 mcg (1,000 unit) tablet 1,000 unit PO DAILY 05/08/20 [History Last Taken Unknown] cyanocobalamin (vitamin B-12) 100 mcg tablet (Vitamin B-12) 100 mcg PO DAILY 05/08/20 [History Last Taken Unknown] diclofenac sodium 1 % topical gel 2 g topical 4X/DAY PRN LE pain 05/08/20 [History Last Taken Unknown] mometasone 100 mcg/actuation HFA aerosol inhaler (Asmanex HFA) 2 puff inhalation DAILY PRN SOB 05/08/20 [History Last Taken Unknown] tramadol 50 mg tablet 50 mg PO Q8H PRN chronic pain 05/08/20 [History Last Taken Unknown] furosemide 40 mg tablet 40 mg PO QDAY DIURETIC #90 tabs 09/17/20 [Rx Last Taken Unknown] nitroglycerin 0.4 mg sublingual tablet 0.4 mg sublingual Q5-15M PRN chest pain #25 tabs 03/28/21 [Rx Last Taken Unknown] losartan 100 mg tablet 100 mg PO DAILY #90 tabs 11/14/21 [Rx Last Taken Unknown] omeprazole 40 mg capsule,delayed release 40 mg PO DAILY gerd 11/14/21 [History Last Taken Unknown] oxybutynin chloride 5 mg tablet 1 - 2 tablet PO DAILY bladder spasms 11/14/21 [History Last Taken Unknown] melatonin 10 mg tablet 10 mg PO QHS 07/26/22 [History Last Taken Unknown] Allergy/AdvReac Type Severity Reaction Status Date / Time bupivacaine Allergy NEEDS Verified 07/26/22 18:14 FOLLOW-UP Gadolinium-MRI Contrast Allergy Chest Verified 07/26/22 18:14 Medium tightness [MRI] ibandronate sodium Allergy Rash Verified 07/26/22 18:14 [From Boniva] levofloxacin [From Levaquin] Allergy Swelling Verified 07/26/22 18:14 lidocaine Allergy NEEDS Verified 07/26/22 18:14 FOLLOW-UP Penicillins Allergy Rash Verified 07/26/22 18:14 procaine [From Novocain] Allergy NEEDS Verified 07/26/22 18:14 FOLLOW-UP mannitol [From Reclast] AdvReac Pain in Verified 07/26/22 18:14 joints water for injection,sterile AdvReac Pain in Verified 07/26/22 18:14 [From Reclast] joints zoledronic acid AdvReac Pain in Verified 07/26/22 18:14 [From Reclast] joints Family History Mother CVA (cerebral vascular accident) Heart disease Father Heart disease Brother Cancer Other Breast cancer Surgical History History of arthroplasty of left knee History of lumpectomy of left breast (11/2016) History of total abdominal hysterectomy History of total right knee replacement Hx of cholecystectomy Social History Smoking Status: Never smoker how long ago did patient quit smokin years ago second hand exposure: Yes alcohol intake: never substance use type: does not use caffeine: Yes Type: coffee Number of servings: 3 ROS ROS Narrative Admission Review of Systems: CONSTITUTIONAL: No weight loss, fever, chills, + weakness or fatigue. HEENT: Eyes: No visual loss, blurred vision, double vision or yellow sclerae. Ears, Nose, Throat: No hearing loss, sneezing, congestion, runny nose or sore throat. SKIN: No rash or itching, lesions, wounds. CARDIOVASCULAR: No chest pain, chest pressure or chest discomfort, palpitations, edema, orthopnea, syncopal events. RESPIRATORY: No shortness of breath, cough or sputum, wheezing, hemoptysis. GASTROINTESTINAL: No anorexia, nausea, vomiting or diarrhea, abdominal pain, melena, BRBPR. GENITOURINARY: No dysuria, frequency, urgency or retention. NEUROLOGICAL: + Chronic mild left-sided weakness, new onset transient expressive aphasia as well as left-sided facial paresthesias. No headache, dizziness, syncope, paralysis, ataxia, change in bowel or bladder control, seizure. MUSCULOSKELETAL: + muscle, back pain, joint pain or stiffness. HEMATOLOGIC: No anemia, bleeding or bruising. LYMPHATICS: No enlarged nodes. No history of splenectomy. PSYCHIATRIC: No history of depression or anxiety. ENDOCRINOLOGIC: No reports of sweating, cold or heat intolerance. No polyuria or polydipsia. ALLERGIES: + history of asthma, rhinitis. Vital Signs Vital Signs Vital Signs: 07/26/22 18:14 07/26/22 18:53 07/26/22 18:44 Temperature 97.5 F L Temperature Source Temporal Pulse Rate 68 68 Respiratory Rate 14 14 Blood Pressure 162/73 H Blood Pressure Mean 102 Pulse Ox 97 94 95 Oxygen Delivery Method Room Air Room Air Room Air 07/26/22 19:14 07/26/22 19:29 Temperature Temperature Source Pulse Rate 68 66 Respiratory Rate 16 16 Blood Pressure 144/64 H 143/62 H Blood Pressure Mean 90 89 Pulse Ox 97 98 Oxygen Delivery Method Room Air Room Air Weight Weight: 207 lb 11.195 oz Body Mass Index (BMI) 38.0 Physical Exam Narrative Physical Examination: General: Awake, alert, oriented x 3 and cooperative, seated upright in the ED bed, fatigued, denies any further neurological symptoms, completely resolved and back to baseline. Skin: Normal color, normal turgor, no icterus, no cyanosis. HEENT: AT/NC, EOMI, PERRLA, mildly dry MM, no carotid bruits or JVD noted. Lungs: Mildly diminished, good bases, appropriate effort, no rales, ronchi or wheezing. Heart: Currently regular rate and rhythm; no gallop, rub audible. Abdomen: Soft, obese, NTTP, ND, mildly hyperactive BS, no HSM. Extremities: No cyanosis, no clubbing, peripheral ankle nonpitting edema present which she notes is chronic. Neurological: Patient awake, alert, oriented as noted, cognitive function intact; pupils equally reactive to light and accommodation, cranial nerves grossly normal, sensation is returned to normal, moving all 4 extremities, patient with chronic very mild left-sided weakness which is unchanged, otherwise finger-nose/ynll-sa-rsta unremarkable, Babinski equivocal, strength at baseline with mild left-sided weakness which is stable. Psychiatric: Affect appears mildly fatigued otherwise normal, no acute evidence of depressive or anxiety feelings. Results Lab / Micro Data Result Diagrams: 07/26/22 18:47 07/26/22 18:47 Labs: Laboratory Results - last 24 hr 07/26/22 18:47: WBC 7.4, RBC 4.02 L, Hgb 12.1, Hct 37.8, MCV 94.0, MCH 30.1, MCHC 32.0, RDW Std Deviation 47.2 H, RDW Coeff of [place] 13.7, Plt Count 179, MPV 12.6 H, Immature Gran % (Auto) 0.300, Neut % (Auto) 61.8, Lymph % (Auto) 25.1, [place] % (Auto) 7.6, Eos % (Auto) 4.3, Baso % (Auto) 0.9, Absolute Neuts (auto) 4.6, Absolute Lymphs (auto) 1.86, Nucleated RBC % 0 07/26/22 18:47: PT 12.1, INR 0.9, APTT 28.3 07/26/22 18:47: Sodium 144, Potassium 3.6, Chloride 109 H, Carbon Dioxide 30.0, Anion Gap 5, BUN 14, Creatinine 0.88, Estim Creat Clear Calc 41.00, Est GFR (MDRD) Af Amer 79, Est GFR (MDRD) Non-Af 65, BUN/Creatinine Ratio 15.8, Glucose 125 H, Calcium 8.9, Troponin I High Sens 10 07/26/22 18:47: B-Natriuretic Peptide 221.3 H Radiology Impression Head/Neck CTA 07/26/22 18:44 IMPRESSION: No acute abnormalities. Calcified plaque in both cavernous carotid arteries with mild bilateral stenosis. Markedly tortuous carotid arteries with no focal stenoses. No large vessel occlusions. Electronically Signed: Tino Mcclellan MD at 19:38 EDT , ADDENDUM: 07/26/221946 IMPRESSION: No acute abnormalities. Calcified plaque in both cavernous carotid arteries with mild bilateral stenosis. Markedly tortuous carotid arteries with no focal stenoses. No large vessel occlusions. N.B. : The above Results were Read Back by Tino Mcclellan MD to MD Panda, and understanding confirmed on 07/26/2022 19:40:53 (ET). Electronically Signed: Tino Mcclellan MD at 19:38 EDT , Chest X-Ray 07/26/22 19:15 IMPRESSION: Normal x-ray examination of the chest. Electronically Signed: Tino Mcclellan MD at 19:52 EDT , Assessment & Plan Assessment/Plan (1) Brain TIA: PLAN: Plan The patient is a 77 y/o F w/ PMHx: Asthma, Hx Breast CA (unclear type), Chronic Diastolic CHF, HTN, HLD, Chronic pain syndrome, GERD, Obesity, Gout, Hx CVA recently 06/2017 (Chronic L sided deficits), Cardiac tachyarrhythmia of unclear type status post RFA but patient is unable to give any further details who presents to the [facility] ED on 07/26/22 with history of onset paresthesias to the left side of the mouth as well as possible facial droop and reportedly per difficulty getting her words out starting approximately 4 PM on day of presentation causing her to become very anxious and present to the ED for evaluation with ongoing mild paresthesias to the left side of the mouth and residual left-sided weakness which is from her prior stroke unchanged in addition to a vague complaint of lower extremity mild swelling over the last 5 days. #1. Left-sided facial paresthesias and questionable expressive aphasia, transient concerning for TIA/CVA complicated by prior stroke with mild left-sided weakness which is stable: Will admit to PCU, will obtain MRI Brain, although patient has had ECHO unclear if assessment PFO thus will request the patient's had this recently if not may need to perform, PT/OT/Speech/Nutrition evaluation per protocol. Will allow permissive HTN with parent agents per stroke protocol, maintain on asa and add plavix especially given prior CVA to be cautious, at least moderate dose statin w/ AM FLP, fall precautions. Mag, TSH, FLP, HgbA1c requested. Maintain on fall and aspiration precautions. Once work-up obtained low threshold to obtain Neurology consultation. #2. Chronic diastolic CHF: 05/17/2020 echocardiogram with LV systolic function normal, normal LV size, EF 65%, stage I diastolic dysfunction noted, structurally normal valves and no obvious evidence that it was performed with agitation or contrast, will maintain on aspirin, adding moderate dose statin as noted, temporally holding hypertensive regimen for permissive hypertension, judicious hydration if necessary given history. #3. Hypertension: Given presentation as noted #1 we will maintain permissive hypertension with parent agents per stroke protocol. #4. Hyperlipidemia: Per most recent list patient is not on statin therapy, no specific allergy listed, will maintain on moderate dose, FLP in AM. #5. History of breast cancer, left-sided, unclear type: Status post left-sided lumpectomy, previously was on anastrozole but is no longer taking, encourage continued outpatient follow-up with oncology, considered in remission. #6. Chronic asthma: We will temporarily hold home inhalers and transition to ATC budesonide therapy, PRN albuterol, HOB, IS parameters. #7. Chronic pain syndrome, neuropathy: We will continue patient home gabapentin regimen, maintain on fall precautions, PT/OT as well as case management consulted as noted above. #8. Obesity: Weight loss and lifestyle changes encouraged. #9. Gout: We will continue patient on allopurinol regimen. #10. Former tobacco usage: Encourage continued tobacco cessation #11. Cardiac tachyarrhythmia, unclear specific type: Patient does report status post RFA previously and reports it was because her heart rate was elevated but cannot give any other information aside this and denies having been anticoagulated. #12. GERD: We will continue patient on PPI. #13. DVT prophylaxis: Lovenox. #14. CODE status: Patient HCPOA and living will or not in place. Patient does note that her significant would be her decision-maker if she is unable. Discussed CODE status at length including difference between FULL code, DNR-CCA and DNR-CC status. Following discussions about the differences in these status, requested Full Code status. Advanced Care Planning Face to Face Time: 16 minutes. Admission Evaluation Time spent evaluating chart, patient history, patient evaluation, care planning and discussion with specialists: 75 minutes. Charges/Coding Visit Charges Inpatient E&M: 25298 Init Hosp L3 Procedures Hospitalists Procedures: 45204 Advncd Care Plan 30 Min
[2022-07-26 21:17] LABS: Magnesium 2.1 mg/dL (1.6-2.6)
--- NOTE | 2022-07-26 21:35 | ECHOD_ITS ---
Version 2 Reason For Study: TIA/CVA Procedure This was a 2D Doppler, Color Flow transthoracic echocardiogram. Myocardial strain analysis was performed in this exam to aid in the assessment of cardiac function. Exam performed portable in patient room. Left Ventricle Normal LV size. Left ventricular systolic function is normal. The estimated ejection fraction is 60 %. Stage 1 diastolic dysfunction. No regional wall motion abnormalities noted. Right Ventricle Normal RV size. The right ventricle is normal in size, function, and thickness. Atria Normal left atrium. Normal right atrium. Hypermobile atrial septum. Mitral Valve Normal mitral valve. Mild (1+) eccentric mitral valve insufficiency. Tricuspid Valve Normal tricuspid valve. Mild tricuspid valve insufficiency. Pulmonary artery systolic pressure is 36 mmHg. Aortic Valve Trisinus/trileaflet aortic valve. Mild (1+) aortic valve insufficiency. Pulmonic Valve Normal pulmonic valve. Trivial pulmonic valve insufficiency. Great Vessels Normal aortic root. The pulmonary artery is normal size. Normal inferior vena cava. Pericardium/Pleural No pericardial effusion. MMode/2D Measurements & Calculations LVIDd: 4.5 cm IVSd: 1.1 cm Ao root diam: 3.5 cm LVIDs: 3.1 cm LVPWd: 0.76 cm RVDd: 2.9 cm FS: 31.8 % LAV(MOD-bp): 42.4 ml LVAd ap4: 21.3 cm2 SV(MOD-sp4): 34.9 ml LAV(MOD-bp) Indexed: 21.9 ml/m2 LVLd ap4: 7.2 cm LAV(MOD-sp2): 48.4 ml EDV(MOD-sp4): 52.2 ml LAV(MOD-sp4): 37.7 ml EDV(sp4-el): 53.5 ml LVAs ap4: 10.8 cm2 LVLs ap4: 5.8 cm ESV(MOD-sp4): 17.2 ml ESV(sp4-el): 17.1 ml EF(MOD-sp4): 67.0 % EF(sp4-el): 68.1 % SV(sp4-el): 36.4 ml LA A4 area: 16.5 cm2 LA dimension(2D): 4.0 cm RA A4 area: 13.3 cm2 Time Measurements MV dec time: 0.34 sec Doppler Measurements & Calculations MV E max alonso: 123.6 cm/sec Lat Peak E' Alonso: 7.9 cm/sec Med Peak E' Alonso: 5.7 cm/sec MV A max alonso: 145.6 cm/sec E/E' lat: 15.7 E/E' med: 21.7 MV E/A: 0.85 MV V2 max: 158.0 cm/sec Ao V2 max: 174.6 cm/sec MV max P.0 mmHg MV dec slope: 365.2 cm/sec2 Ao max P.2 mmHg MV V2 mean: 94.3 cm/sec Ao V2 mean: 111.6 cm/sec MV mean P.0 mmHg Ao mean P.9 mmHg MV V2 VTI: 54.0 cm Ao V2 VTI: 42.6 cm AV (velocity ratio): 0.84 LV V1 max: 149.4 cm/sec PA V2 max: 86.7 cm/sec TR max alonso: 284.6 cm/sec LV V1 max P.9 mmHg TR max P.4 mmHg LV V1 mean P.5 mmHg LV V1 mean: 97.9 cm/sec LV V1 VTI: 35.8 cm ECHO/Echo Complete Interpretation Summary Normal LV size. Left ventricular systolic function is normal. The estimated ejection fraction is 60 %. Stage 1 diastolic dysfunction. Pulmonary artery systolic pressure is 36 mmHg. Hypermobile atrial septum. The global longitudinal strain is normal. The global longitudinal strain = -21. 5 % (normal). Ordering Physician: Elaine Wakefield Referring Physician: Frank Moore Performed By: Dolores Serrano, WILLIAN, RVT
[2022-07-26] MEDS: 0.9% Normal Saline 1,000 ML 75 ML IV (22:30)
[2022-07-26] MEDS: Gabapentin 300 MG Capsule PO (22:30)
[2022-07-26] MEDS: Atorvastatin Calcium 20 MG Tablet PO (22:30)
[2022-07-26] MEDS: MELATONIN 10 MG TABLET PO (22:35)
[2022-07-27 01:02] VITALS: BP 119/59; PULSE 61; RESP 18; TEMP 36.6; O2SAT 95
[2022-07-27] MEDS: Acetaminophen 325 MG Tablet 650 MG PO (01:24)
[2022-07-27 05:01] VITALS: BP 123/55; PULSE 63; RESP 18; TEMP 36.4; O2SAT 95
[2022-07-27 06:24] LABS: Absolute Lymphocyte Count 2.06 X10^3/uL (0.83-4.51); Absolute Neutrophil Count 3.6 X10^3/uL (2.0-7.7); Basophil# 0.03 X10^3/uL; Basophil% 0.5 % (0-1); Eosinophil# 0.32 X10^3/uL; Eosinophils% 4.9 % (0-5); Hematocrit 33.3 % (37-47); Hemoglobin 10.9 g/dL (12.0-15.0); Lymphocyte # 2.06 X10^3/ul (0.83-4.51); Lymphocyte % 31.5 % (19-41); Mean Corp Hgb Conc 32.7 g/dL (32-36); Mean Corpuscular Hgb 30.9 pg (27.0-32.0); Mean Corpuscular Volume 94.3 fL (81-99); Mean Platelet Vol. 12.3 fl (6.2-12.0); Monocyte% 7.6 % (0-10); NRBC Flagged by Analyzer 0 % (0-5); Neutrophil # 3.62 X10^3/uL (2.7-7.7); Neutrophil % 55.2 % (47-70); Platelet Count 153 K/mm3 (150-450); RBC Distribution Width CV 13.9 % (11.6-14.6); RBC Distribution Width SD 47.2 fl (35.1-43.9); Red Blood Count 3.53 M/mm3 (4.2-5.4); White Blood Count 6.6 K/mm3 (4.4-11.0)
[2022-07-27 06:51] VITALS: BMI 37.8
[2022-07-27 07:09] LABS: ALB/GLOB Ratio 0.9 RATIO (0.9-2.4); AST(SGOT) 17 U/L (15-37); Alanine Aminotransfer ALT/SGPT 11 U/L (13-56); Albumin, Serum 2.5 g/dL (3.2-5.0); Alkaline Phosphatase 85 U/L (45-117); Anion Gap 5 (5-15); BUN 11 mg/dL (7-18); BUN/Creat Ratio 16.6 RATIO (10-20); Calcium,Total 8.1 mg/dL (8.5-10.1); Chloride 111 mmol/L (98-107); Cholesterol 139 mg/dL (200); Creatinine, Serum 0.66 mg/dL (0.55-1.02); EST Glomerular Filtration Rate 91 mL/min (>60); Est Glom Filt Rate - Afr Amer 110 mL/min (>60); Estimated Creatinine Clearance 36.08 ml/min; Globulin 2.7 g/dL (2.2-4.2); Glucose 99 mg/dL (74-106); High Density Lipoprotein 48 mg/dL; Potassium 3.1 mmol/L (3.5-5.1); Protein, Total 5.2 g/dL (6.4-8.2); Sodium Level 145 mmol/L (136-145); Thyroid Stim Hormone (TSH) 3.73 uIU/mL (0.358-3.74); Triglycerides 81 mg/dL; Very Low Density Lipoprotein 16 mg/dL (5-40)
[2022-07-27] MEDS: Budesonide Respules 0.5 MG/2 ML AMPUL.NEB. INHALATION (07:25)
[2022-07-27 07:29] VITALS: PULSE 51; RESP 16; O2SAT 97
--- NOTE | 2022-07-27 07:41 | PN.HOSP_ITS ---
Reason for Visit Reason for Visit: Diagnoses Transient cerebral ischemic attack, unspecified (07/26/22) Subjective Subjective Feeling better. No further expressive aphasia. Objective Data Objective Data Vital Signs: Vital Signs Temp Pulse Resp BP Pulse Ox O2 Del Method 36.4 C L 51 L 16 123/55 H 97 Room Air 07/27/22 05:01 07/27/22 07:29 07/27/22 07:29 07/27/22 05:01 07/27/22 07:29 07/27/22 07:29 Oxygen Delivery Method Room Air Weight: 93.8 kg Body Mass Index (BMI) 37.8 Intake & Output: Intake and Output for Last 24 Hours 07/25/22 07/26/22 07/27/22 23:59 23:59 23:59 Intake Total 240 / 240 Balance 240 / 240 Lab / Micro Data Result Diagrams: 07/27/22 05:50 07/27/22 05:50 Labs: Laboratory Results - last 24 hr 07/26/22 18:47: WBC 7.4, RBC 4.02 L, Hgb 12.1, Hct 37.8, MCV 94.0, MCH 30.1, MCHC 32.0, RDW Std Deviation 47.2 H, RDW Coeff of [place] 13.7, Plt Count 179, MPV 12.6 H, Immature Gran % (Auto) 0.300, Neut % (Auto) 61.8, Lymph % (Auto) 25.1, [place] % (Auto) 7.6, Eos % (Auto) 4.3, Baso % (Auto) 0.9, Absolute Neuts (auto) 4.6, Absolute Lymphs (auto) 1.86, Nucleated RBC % 0 07/26/22 18:47: PT 12.1, INR 0.9, APTT 28.3 07/26/22 18:47: Sodium 144, Potassium 3.6, Chloride 109 H, Carbon Dioxide 30.0, Anion Gap 5, BUN 14, Creatinine 0.88, Estim Creat Clear Calc 41.00, Est GFR (MDRD) Af Amer 79, Est GFR (MDRD) Non-Af 65, BUN/Creatinine Ratio 15.8, Glucose 125 H, Calcium 8.9, Troponin I High Sens 10 07/26/22 18:47: B-Natriuretic Peptide 221.3 H 07/26/22 18:47: Magnesium 2.1 07/27/22 05:50: WBC 6.6, RBC 3.53 L, Hgb 10.9 L, Hct 33.3 L, MCV 94.3, MCH 30.9, MCHC 32.7, RDW Std Deviation 47.2 H, RDW Coeff of [place] 13.9, Plt Count 153, MPV 12.3 H, Immature Gran % (Auto) 0.300, Neut % (Auto) 55.2, Lymph % (Auto) 31.5, [place] % (Auto) 7.6, Eos % (Auto) 4.9, Baso % (Auto) 0.5, Absolute Neuts (auto) 3.6, Absolute Lymphs (auto) 2.06, Nucleated RBC % 0 07/27/22 05:50: Sodium 145, Potassium 3.1 L, Chloride 111 H, Carbon Dioxide 29.0, Anion Gap 5, BUN 11, Creatinine 0.66, Estim Creat Clear Calc 36.08, Est GF R (MDRD) Af Amer 110, Est GFR (MDRD) Non-Af 91, BUN/Creatinine Ratio 16.6, Glucose 99, Calcium 8.1 L, Total Bilirubin 0.40, AST 17, ALT 11 L, Alkaline Corey sphatase 85, Total Protein 5.2 L, Albumin 2.5 L, Globulin 2.7, Albumin/Globulin Ratio 0.9, Triglycerides 81, Cholesterol 139, LDL Cholesterol 75, VLDL Cho lesterol 16, HDL Cholesterol 48, TSH 3.73 Radiography Diagnostic Testing: Radiology Impression Head/Neck CTA 07/26/22 18:44 IMPRESSION: No acute abnormalities. Calcified plaque in both cavernous carotid arteries with mild bilateral stenosis. Markedly tortuous carotid arteries with no focal stenoses. No large vessel occlusions. Electronically Signed: Tino Mcclellan MD at 19:38 EDT , ADDENDUM: 07/26/221946 IMPRESSION: No acute abnormalities. Calcified plaque in both cavernous carotid arteries with mild bilateral stenosis. Markedly tortuous carotid arteries with no focal stenoses. No large vessel occlusions. N.B. : The above Results were Read Back by Tino Mcclellan MD to MD Panda, and understanding confirmed on 07/26/2022 19:40:53 (ET). Electronically Signed: Tino Mcclellan MD at 19:38 EDT , Chest X-Ray 07/26/22 19:15 IMPRESSION: Normal x-ray examination of the chest. Electronically Signed: Tino Mcclellan MD at 19:52 EDT , Physical Exam Const alert and no apparent distress HEENT head/scalp atraumatic Resp normal respiratory effort, no retractions, no use of accessory muscles and clear to auscultation bilaterally Cardio regular rate, regular rhythm, S1 normal heart sound and S2 normal heart sound GI normal to inspection, nondistended, normoactive bowel sounds, soft to palpation, non-tender and non-distended Extremity normal to inspection Assessment & Plan Assessment/Plan (1) Brain TIA: PLAN: Left-sided facial paresthesias and questionable expressive aphasia, transient concerning for TIA/CVA complicated by prior stroke with mild left- sided weakness which is stable: This could be anxiety or panic attack. Patient states that things have been stressful at home for the past few months but she stated that when this episode happened she was in a state where she was not feeling anxious. CTA head and neck negative. MRI of the brain was negative Consult SOC teleneurology. Continue asa and add plavix PLAN: Plan Chronic conditions: * Chronic diastolic CHF: 05/17/2020 echocardiogram with LV systolic function normal, normal LV size, EF 65%, stage I diastolic dysfunction noted, structurally normal valves and no obvious evidence that it was performed with agitation or contrast, will maintain on aspirin, adding moderate dose statin as noted, temporally holding hypertensive regimen for permissive hypertension, judicious hydration if necessary given history. * Hypertension: Given presentation as noted #1 we will maintain permissive hypertension with parent agents per stroke protocol. * Hyperlipidemia: Per most recent list patient is not on statin therapy, no specific allergy listed, will maintain on moderate dose, FLP in AM. * History of breast cancer, left-sided, unclear type: Status post left-sided lumpectomy, previously was on anastrozole but is no longer taking, encourage continued outpatient follow-up with oncology, considered in remission. * Chronic asthma: We will temporarily hold home inhalers and transition to ATC budesonide therapy, PRN albuterol, HOB, IS parameters. * Chronic pain syndrome, neuropathy: We will continue patient home gabapentin regimen, maintain on fall precautions, PT/OT as well as case management consulted as noted above. * Obesity: Weight loss and lifestyle changes encouraged. * Gout: We will continue patient on allopurinol regimen. * Former tobacco usage: Encourage continued tobacco cessation * Cardiac tachyarrhythmia, unclear specific type: Patient does report status post RFA previously and reports it was because her heart rate was elevated but cannot give any other information aside this and denies having been anticoagulated. * GERD: We will continue patient on PPI. DVT prophylaxis: Lovenox. CODE status: full Charges/Coding Visit Charges Inpatient E&M: 08335 Subs Hosp L2
[2022-07-27] MEDS: Aspirin 81 MG TAB.CHEW PO (08:23)
[2022-07-27 08:49] LABS: Hemoglobin A1c 5.4 % (3.8-5.6)
--- NOTE | 2022-07-27 09:00 | MRI_ITS ---
HISTORY: CVA. TECHNIQUE: Multiplanar and multisequence MR images of the brain were obtained without contrast. 284 images. COMPARISON: CT prior day. MR 06/19/2017 FINDINGS: BRAIN PARENCHYMA: Mild periventricular white matter changes.. No abnormal focus of restricted diffusion. No acute intracranial hemorrhage identified. CSF SPACES: Generalized volume loss. No significant midline shift or other mass effect.No extra-axial fluid collection. VASCULAR SYSTEM: Major intracranial flow voids are maintained. PARANASAL SINUSES AND MASTOID AIR CELLS: No significant air fluid levels. ORBITS: Bilateral lens resections. MRI/Brain without Contrast IMPRESSION: No evidence for acute infarct. Mild chronic involutional and white matter changes. Electronically Signed: Kaylene Yost MD at 11:32 EDT ,
[2022-07-27 10:00] VITALS: BP 106/41; PULSE 58; RESP 16; TEMP 36.9; O2SAT 97
[2022-07-27] MEDS: Oxybutynin 5 MG Tablet PO (10:14)
[2022-07-27] MEDS: Pantoprazole Sodium 40 MG Tablet PO (10:14)
[2022-07-27] MEDS: Clopidogrel Bisulfate 75 MG Tablet PO (10:14)
[2022-07-27] MEDS: Enoxaparin 40 MG/0.4 ML Syringe SC (10:14)
--- NOTE | 2022-07-27 11:29 | CASEMGMT ---
Social Work Pt completed PHQ-9 w/SW as she may have had a stroke, just had MRI. Pt scored a 1 for feeling more tired recently. Pt explains that her home was just renovated, though it is done now. She states her fiance's sister and her disabled son are staying w/them at present, and this is causing some stress. Pt states she has 3 disabled children herself, but it's just a lot to have them there. She explains the son just talks non stop and it's a lot. She explains her other sister in law is looking for a place for them to stay, so it is a temporary situation. SW offered support to pt. Pt denies any depressive symptoms at this time. SW remains available should pt need additional support or for any other social service needs. GILL Cruz
[2022-07-27] MEDS: Gabapentin 100 MG Capsule PO (11:34)
[2022-07-27 15:00] VITALS: BP 137/75; PULSE 58; RESP 18; TEMP 36.7; O2SAT 97
--- NOTE | 2022-07-27 16:14 | CASEMGMT ---
RN TORIN NOTE: Intro role of CM to patient and MALONEY form explained re: Observation status for treatment of TIA.? Explained hospitalization will be paid per her insurance policy for Outpatient billing?and condition will continue to be evaluated for Inpt necessity. Also let pt know that [facility] sends paper in the billing packet with their phone number if questions arise. Discussed Pharmacy section of MALNOEY form and self administered medication guideline.? Pt verbalizes understanding and does not have further questions. ?Form signed, copy made and placed in chart, and original given to pt. Lauro NELSON RN CM
[2022-07-27 16:19] VITALS: BMI 37.8
--- NOTE | 2022-07-27 16:36 | PCM.DC ---
Discharge Instructions Diet Discharge Diet: Low fat / Low cholesterol Activity Discharge Activity: Return to Normal Activity Dressing / Incision Call your doctor if you observe: - (difficulty speaking. unilateral weakness. ) Follow Up Care Test Results: Test results from this visit will be discussed in further detail at your follow-up appointment, if applicable. Discharge Plan Admission Admit Date/Time: 07/26/22 20:50 Primary Reason for Your Visit: TIA Attending Provider: Keven Willingham Primary Care Provider: Frank Moore Consulting Providers: Elaine Wakefield Instructions Additional Instructions / Restrictions: You had what is described as a transient ischemic attack (also known as a mini stroke). We will continue with aspirin and Plavix for 3 weeks and then after 3 weeks to continue with Plavix. He also be on cholesterol medication, atorvastatin. He should also follow-up with neurology. Discharge Orders/Prescriptions Prescriptions: New atorvastatin 20 mg Tablet 20 mg PO QHS Qty: 30 0RF aspirin 81 mg Tablet,Chewable 81 mg PO BREAKFAST Qty: 21 0RF clopidogrel 75 mg Tablet 75 mg PO DAILY Qty: 30 0RF Continued albuterol sulfate [Ventolin HFA] 90 mcg/actuation HFA aerosol inhaler 2 puff INHALATION Q6H PRN (Reason: Asthma) carvedilol 12.5 mg tablet 12.5 mg PO BID diclofenac sodium 1 % gel 2 g TOPICAL 4X/DAY PRN (Reason: LE pain) tramadol 50 mg tablet 50 mg PO Q8H PRN (Reason: chronic pain) furosemide 40 mg tablet 40 mg PO QDAY Qty: 90 3RF Asmanex HFA 100 mcg/actuation HFA aerosol inhaler 2 puff INHALATION DAILY PRN (Reason: SOB) cyanocobalamin (vitamin B-12) [Vitamin B-12] 100 mcg tablet 100 mcg PO DAILY cholecalciferol (vitamin D3) 25 mcg (1,000 unit) tablet 1,000 unit PO DAILY omeprazole 40 mg capsule,delayed release(DR/EC) 40 mg PO DAILY oxybutynin chloride 5 mg tablet 1 - 2 tablet PO DAILY losartan 100 mg tablet 100 mg PO DAILY Qty: 90 3RF gabapentin 300 MG capsule 300 mg PO QHS Label Comments: nerve pain allopurinol 300 mg tablet 300 mg PO DAILY Label Comments: gout hydrocortisone 1 APPLIC cream 1 applicatio TOPICAL DAILY PRN (Reason: Itching) gabapentin 100 mg capsule 100 mg PO DAILY melatonin 10 mg Tablet 10 mg PO QHS amlodipine 5 mg tablet 5 mg PO DAILY Qty: 90 3RF nitroglycerin 0.4 mg tablet, sublingual 0.4 mg SUBLINGUAL Q5-15M PRN (Reason: chest pain) Qty: 25 3RF Rx Instructions: do not exceed 3 doses per episode Referrals / Follow Up: [facility] [Provider Group] - Within 1 Month Frank Moore DO [Primary Care Provider] - Within 2 Weeks Disposition Disposition (needs filled in before D/C Order can be placed): Home, Self Care
--- NOTE | 2022-07-27 16:42 | PCM.DC.SUM ---
Providers Date of Admission: 07/26/22 Primary Care Physician: Dr. Frank Moore DO Reason For Visit: TIA, Diagnosis Discharge Diagnosis (1) Brain TIA: Status: Acute Code(s): G45.9 - Transient cerebral ischemic attack, unspecified Plan: Left-sided facial paresthesias and questionable expressive aphasia, transient concerning for TIA/CVA complicated by prior stroke with mild left-sided weakness which is stable: This could be anxiety or panic attack. Patient states that things have been stressful at home for the past few months but she stated that when this episode happened she was in a state where she was not feeling anxious. CTA head and neck negative. MRI of the brain was negative Consult [facility] teleneurology. Discussed with SOC, recommends 3 weeks of aspirin and clopidogrel and then to drop the aspirin and continue with clopidogrel. Continue with atorvastatin. Continue asa and add plavix Plan Chronic conditions: Chronic diastolic CHF: 05/17/2020 echocardiogram with LV systolic function normal, normal LV size, EF 65%, stage I diastolic dysfunction noted, structurally normal valves and no obvious evidence that it was performed with agitation or contrast, will maintain on aspirin, adding moderate dose statin as noted, temporally holding hypertensive regimen for permissive hypertension, judicious hydration if necessary given history. Hypertension: Given presentation as noted #1 we will maintain permissive hypertension with parent agents per stroke protocol. Hyperlipidemia: Per most recent list patient is not on statin therapy, no specific allergy listed, will maintain on moderate dose, FLP in AM. History of breast cancer, left-sided, unclear type: Status post left-sided lumpectomy, previously was on anastrozole but is no longer taking, encourage continued outpatient follow-up with oncology, considered in remission. Chronic asthma: We will temporarily hold home inhalers and transition to ATC budesonide therapy, PRN albuterol, HOB, IS parameters. Chronic pain syndrome, neuropathy: We will continue patient home gabapentin regimen, maintain on fall precautions, PT/OT as well as case management consulted as noted above. Obesity: Weight loss and lifestyle changes encouraged. Gout: We will continue patient on allopurinol regimen. Former tobacco usage: Encourage continued tobacco cessation Cardiac tachyarrhythmia, unclear specific type: Patient does report status post RFA previously and reports it was because her heart rate was elevated but cannot give any other information aside this and denies having been anticoagulated. GERD: We will continue patient on PPI. DVT prophylaxis: Lovenox. CODE status: full Medications at Discharge Home Medications gabapentin 300 mg capsule 300 mg PO QHS pain manangement 10/18/13 hydrocortisone 2.5 % topical cream 1 applicatio topical DAILY PRN Itching 06/18/17 albuterol sulfate 90 mcg/actuation aerosol inhaler (Ventolin HFA) 2 puff inhalation Q6H PRN Asthma 07/21/17 carvedilol 12.5 mg tablet 12.5 mg PO BID BP 01/18/18 allopurinol 300 mg tablet 300 mg PO DAILY gout 08/23/18 gabapentin 100 mg capsule 100 mg PO DAILY pain management 08/23/18 amlodipine 5 mg tablet 5 mg PO DAILY #90 tabs 02/29/20 cholecalciferol (vitamin D3) 25 mcg (1,000 unit) tablet 1,000 unit PO DAILY 05/08/20 cyanocobalamin (vitamin B-12) 100 mcg tablet (Vitamin B-12) 100 mcg PO DAILY 05/08/20 diclofenac sodium 1 % topical gel 2 g topical 4X/DAY PRN LE pain 05/08/20 mometasone 100 mcg/actuation HFA aerosol inhaler (Asmanex HFA) 2 puff inhalation DAILY PRN SOB 05/08/20 tramadol 50 mg tablet 50 mg PO Q8H PRN chronic pain 05/08/20 furosemide 40 mg tablet 40 mg PO QDAY DIURETIC #90 tabs 09/17/20 nitroglycerin 0.4 mg sublingual tablet 0.4 mg sublingual Q5-15M PRN chest pain #25 tabs 03/28/21 losartan 100 mg tablet 100 mg PO DAILY #90 tabs 11/14/21 omeprazole 40 mg capsule,delayed release 40 mg PO DAILY gerd 11/14/21 oxybutynin chloride 5 mg tablet 1 - 2 tablet PO DAILY bladder spasms 11/14/21 melatonin 10 mg tablet 10 mg PO QHS 07/26/22 aspirin 81 mg chewable tablet 81 mg PO BREAKFAST #21 tabs 07/27/22 atorvastatin 20 mg tablet 20 mg PO QHS #30 tabs 07/27/22 clopidogrel 75 mg tablet 75 mg PO DAILY #30 tabs 07/27/22 Hospital Course Operations None Procedures 2-D Echocardiogram Summary of Care Provided Minutes Spent on Discharge: 32 Weight / BMI Weight Weight: 93.8 kg Body Mass Index (BMI) 37.8 ABG / Lab / Microbiology Data Result Diagrams: 07/27/22 05:50 07/27/22 05:50 Laboratory: Laboratory Results - last 24 hr 07/26/22 18:47: WBC 7.4, RBC 4.02 L, Hgb 12.1, Hct 37.8, MCV 94.0, MCH 30.1, MCHC 32.0, RDW Std Deviation 47.2 H, RDW Coeff of [place] 13.7, Plt Count 179, MPV 12.6 H, Immature Gran % (Auto) 0.300, Neut % (Auto) 61.8, Lymph % (Auto) 25.1, Toombs % (Auto) 7.6, Eos % (Auto) 4.3, Baso % (Auto) 0.9, Absolute Neuts (auto) 4.6, Absolute Lymphs (auto) 1.86, Nucleated RBC % 0 07/26/22 18:47: PT 12.1, INR 0.9, APTT 28.3 07/26/22 18:47: Sodium 144, Potassium 3.6, Chloride 109 H, Carbon Dioxide 30.0, Anion Gap 5, BUN 14, Creatinine 0.88, Estim Creat Clear Calc 41.00, Est GFR (MDRD) Af Amer 79, Est GFR (MDRD) Non-Af 65, BUN/Creatinine Ratio 15.8, Glucose 125 H, Calcium 8.9, Troponin I High Sens 10 07/26/22 18:47: B-Natriuretic Peptide 221.3 H 07/26/22 18:47: Magnesium 2.1 07/27/22 05:50: WBC 6.6, RBC 3.53 L, Hgb 10.9 L, Hct 33.3 L, MCV 94.3, MCH 30.9, MCHC 32.7, RDW Std Deviation 47.2 H, RDW Coeff of [place] 13.9, Plt Count 153, MPV 12.3 H, Immature Gran % (Auto) 0.300, Neut % (Auto) 55.2, Lymph % (Auto) 31.5, Toombs % (Auto) 7.6, Eos % (Auto) 4.9, Baso % (Auto) 0.5, Absolute Neuts (auto) 3.6, Absolute Lymphs (auto) 2.06, Nucleated RBC % 0 07/27/22 05:50: Sodium 145, Potassium 3.1 L, Chloride 111 H, Carbon Dioxide 29.0, Anion Gap 5, BUN 11, Creatinine 0.66, Estim Creat Clear Calc 36.08, Est GFR (MDRD) Af Amer 110, Est GFR (MDRD) Non-Af 91, BUN/Creatinine Ratio 16.6, Glucose 99, Calcium 8.1 L, Total Bilirubin 0.40, AST 17, ALT 11 L, Alkaline Phosphatase 85, Total Protein 5.2 L, Albumin 2.5 L, Globulin 2.7, Albumin/Globulin Ratio 0.9, Triglycerides 81, Cholesterol 139, LDL Cholesterol 75, VLDL Cholesterol 16, HDL Cholesterol 48, TSH 3.73 07/27/22 05:50: Hemoglobin A1c 5.4 Radiography Diagnostic Testing: Radiology Impression Head/Neck CTA 07/26/22 18:44 IMPRESSION: No acute abnormalities. Calcified plaque in both cavernous carotid arteries with mild bilateral stenosis. Markedly tortuous carotid arteries with no focal stenoses. No large vessel occlusions. Electronically Signed: Tino Mcclellan MD at 19:38 EDT Reading Location ID and State: [facility] / [place] , Service support , ADDENDUM: 07/26/221946 IMPRESSION: No acute abnormalities. Calcified plaque in both cavernous carotid arteries with mild bilateral stenosis. Markedly tortuous carotid arteries with no focal stenoses. No large vessel occlusions. N.B. : The above Results were Read Back by Tino Mcclellan MD to MD Panda, and understanding confirmed on 07/26/2022 19:40:53 (ET). Electronically Signed: Tino Mcclellan MD at 19:38 EDT Reading Location ID and State: [facility] / [place] , Service support , Chest X-Ray 07/26/22 19:15 IMPRESSION: Normal x-ray examination of the chest. Electronically Signed: Tino Mcclellan MD at 19:52 EDT Reading Location ID and State: [facility] / [place] , Service support , Echocardiogram 07/26/22 21:35 Interpretation Summary Normal LV size. Left ventricular systolic function is normal. The estimated ejection fraction is 60 %. Stage 1 diastolic dysfunction. Pulmonary artery systolic pressure is 36 mmHg. Hypermobile atrial septum. The global longitudinal strain is normal. The global longitudinal strain = -21.5 % (normal). Ordering Physician: Elaine Wakefield Referring Physician: Frank Moore Performed By: Dolores Serrano, RDCS, RVT Brain MRI 07/27/22 09:00 IMPRESSION: No evidence for acute infarct. Mild chronic involutional and white matter changes. Electronically Signed: Kaylene Yost MD at 11:32 EDT Reading Location ID and State: [facility] / [place] Tel , Service support , D/C Instructions Discharge Diet: Low fat / Low cholesterol Call your doctor if you observe: - (difficulty speaking. unilateral weakness. ) Meaningful Use Info Meaningful Use Diagnoses (Choose all that apply): Ischemic CVA CVA Therapy Assessed for PT,OT and/or ST?: Yes Ischemic Stroke Antithrombotic order at d/c?: Yes Dx of Atrial fib/flutter?: No Statins at discharge?: Yes Primary Dx Acute Ischemic CVA?: Yes Discharge Plan Admission Admit Date/Time: 07/26/22 20:50 Primary Reason for Your Visit: TIA Attending Provider: Keven Willingham Primary Care Provider: Frank Moore Consulting Providers: Elaine Wakefield Instructions Additional Instructions / Restrictions: You had what is described as a transient ischemic attack (also known as a mini stroke). We will continue with aspirin and Plavix for 3 weeks and then after 3 weeks to continue with Plavix. He also be on cholesterol medication, atorvastatin. He should also follow-up with neurology. Discharge Orders/Prescriptions Prescriptions: New atorvastatin 20 mg Tablet 20 mg PO QHS Qty: 30 0RF aspirin 81 mg Tablet,Chewable 81 mg PO BREAKFAST Qty: 21 0RF clopidogrel 75 mg Tablet 75 mg PO DAILY Qty: 30 0RF Continued albuterol sulfate [Ventolin HFA] 90 mcg/actuation HFA aerosol inhaler 2 puff INHALATION Q6H PRN (Reason: Asthma) carvedilol 12.5 mg tablet 12.5 mg PO BID diclofenac sodium 1 % gel 2 g TOPICAL 4X/DAY PRN (Reason: LE pain) tramadol 50 mg tablet 50 mg PO Q8H PRN (Reason: chronic pain) furosemide 40 mg tablet 40 mg PO QDAY Qty: 90 3RF Asmanex HFA 100 mcg/actuation HFA aerosol inhaler 2 puff INHALATION DAILY PRN (Reason: SOB) cyanocobalamin (vitamin B-12) [Vitamin B-12] 100 mcg tablet 100 mcg PO DAILY cholecalciferol (vitamin D3) 25 mcg (1,000 unit) tablet 1,000 unit PO DAILY omeprazole 40 mg capsule,delayed release(DR/EC) 40 mg PO DAILY oxybutynin chloride 5 mg tablet 1 - 2 tablet PO DAILY losartan 100 mg tablet 100 mg PO DAILY Qty: 90 3RF gabapentin 300 MG capsule 300 mg PO QHS Label Comments: nerve pain allopurinol 300 mg tablet 300 mg PO DAILY Label Comments: gout hydrocortisone 1 APPLIC cream 1 applicatio TOPICAL DAILY PRN (Reason: Itching) gabapentin 100 mg capsule 100 mg PO DAILY melatonin 10 mg Tablet 10 mg PO QHS amlodipine 5 mg tablet 5 mg PO DAILY Qty: 90 3RF nitroglycerin 0.4 mg tablet, sublingual 0.4 mg SUBLINGUAL Q5-15M PRN (Reason: chest pain) Qty: 25 3RF Rx Instructions: do not exceed 3 doses per episode Referrals / Follow Up: [facility] [Provider Group] - Within 1 Month Frank Moore DO [Primary Care Provider] - Within 2 Weeks Disposition Disposition (needs filled in before D/C Order can be placed): Home, Self Care Charges/Coding Visit Charges Inpatient E&M: 67301 Disch Hosp >30min
== END 2022-07-27 16:41 | disposition home or self-care (01) ==
LOC: ED 20:18 → PCU 21:07
PROVIDERS: Nurse Practitioner; Admitting Provider Family Medicine; Emergency Provider Student in an Organized Health Care Education/Training Program; PCP Student in an Organized Health Care Education/Training Program
DX: G45.9 Transient cerebral ischemic attack, unspecified (principal); I69.354 Hemiplegia and hemiparesis following cerebral infarction affecting left non-dominant side; J44.9 Chronic obstructive pulmonary disease, unspecified; I11.0 Hypertensive heart disease with heart failure; I50.32 Chronic diastolic (congestive) heart failure; Z79.51 Long term (current) use of inhaled steroids; G89.4 Chronic pain syndrome; R47.9 Unspecified speech disturbances; Z79.899 Other long term (current) drug therapy; E78.00 Pure hypercholesterolemia, unspecified; M10.9 Gout, unspecified; K21.9 Gastro-esophageal reflux disease without esophagitis; R20.2 Paresthesia of skin
CPT/HCPCS: 36415; 70496; 70498; 70551; 71045; 80048; 80053; 80061; 83036; 83735; 83880; 84443; 84484; 85025; 85610; 85730; 93005; 93306; 94640; 94668; 94762; 96360; 96361; 96372; 97161; 97166; 97802; 99221; 99285; J7030; Q9967; A4216; G0378

== ENCOUNTER 2023-11-01 13:30 | Outpatient (RCR) | payer MEDICARE, OTHER, SELFPAY ==
--- NOTE | 2023-10-01 13:01 | HP.PTEVAL_ITS ---
Patient's Visit Information Visit Information Visit Information: CIARA HODGES is a 78 year old F referred to Physical Therapy by Dr. Frank Moore DO with a diagnosis of WEAKNESS. Date of Evaluation: 10/01/23 Physical Therapist: Carlos Benito PT, Cert MDT, OCS Visit Plan Frequency: 2x /Week Duration: 4 Weeks Plan: PT INTERVENTIONS PROGRESSIVE BALANCE TRAINING ,STRENGTHENING BLE QUADS/HAMS/HIP ,FUNCTIONAL STRENGTHENING AND ENDURANCE PROGRAM Subjective Subjective: This 78 y/o female presents to physical therapy with weakness. Patient has been developed weakness past year. Patient had TIA last year July 2023. Patient seen DR sully CAMPOS . Patient has more weakness left side > right thus uses cane outside. Patient has no recent falls. Patient has lumbar pain. Medication tramadol pain. Patient lives with friend. Patient lives in 1 story home with 1 step. Walk-in shower bars. Patient I with dressing and bathing. Patient is able to cook and cleaning. Patient condition affects QOL and function. Patient goals to get stronger . SOCIAL: single VOCATION: retired Pain Bilateral Back: Pain Intensity (Out of 10): 3 Pain Intensity Range: 10 Objective Objective: POSTURE: mild forward posture ,hips/knees flexed ,trunk flexed GAIT: reciprocal pattern 2 point gait with forward posture NEURO: denies paresthesia/tingling BALANCE: fair + with cane MMT: ( peak force) quads right 24.1,left 20.9 ,hamstrings right 17.9 ,right 14.1. hip flexion right 24.1 .leeft 20.1 STAIRS: one step at time with rails Balance/Special Test Scores Functional Gait Assessment Score: 15 % Disability: 50.0000 CATSIB Score (Max score 120 seconds): 70 Lower Extremity Functional Score: 30 Goals Goal 1:: Patient to be I with HEP Goal Time Frame: 4-6 Weeks Goal 2:: Patient to improve LFES score by 5-10 points to improve gait Goal Time Frame: 4-6 Weeks Goal 3:: Patient to improve peak force quads/hams/hip by 5-10# to improve funct ion and gait Goal Time Frame: 4-6 Weeks Goal 4:: Patient to improve CATSIBE by 5-10 points to improve balance Goal Time Frame: 4-6 Weeks Goal 5:: Patient to improve functional gait assessment score by 5 points to improve gait and decrease risk of falls Goal Time Frame: 4-6 Weeks Goal 6:: Patient to demonstrate 50% improvement with increase function and gait Goal Time Frame: 4-6 Weeks Rehabilitation Potential Physical Therapy Diagnosis: This patient has generalized weakness with decrease gait ,balance deficits thus benefit from skilled PT to address these impairments Rehabilitation Potential: Good Anticipated Interventions Patient/Client Instruction: Educate patient on: Condition and Plan of Care For the Purpose of:: To decrease pain, To improve muscle performance and motor function, To improve ability to perform ADL's, To increase tolerance to activity/condition/position, To improve ability of physical actions for home/community/work/leisure, To improve gait and locomotor functions, To decrease soft tissue restriction, To improve endurance and To improve balance Therapeutic Exercise to Include: Strength training, Endurance training, Balance training and Gait and locomotor training Comment: BLE For the Purpose of:: To improve muscle performance and motor function, To improve ability to perform ADL's, To increase tolerance to activity/condition/position, To improve ability of physical actions for home/community/work/leisure, To improve gait and locomotor functions, To increase flexibility/ROM, To improve endurance and To improve balance Text: Thank you for the opportunity to evaluate your patient. For Medicare and Medicare HMO plans, please review the plan of care and approve it. It will need to be FAXED BACK to us at [phone] for Medicare purposes. For Medicare only, by signing this I certify the plan of care. Please let me know if there are questions or concerns regarding this plan of care. Physician Miley moss: Date:
--- NOTE | 2023-11-01 13:45 | HP.PTDCSUM ---
Discharge Summary D/C summary: It has been my pleasure to treat CIARA HODGES referred by Dr. Frank Moore DO, with the diagnosis of WEAKNESS for a total of 10 visit(s). Discharge Date: Please see the following information for a summary of their discharge status. Subjective Subjective: Patient will try to do own Patient reports balance is better Strength has improved but uses cane Plan to see pain management Pain Bilateral Back: Pain Intensity (Out of 10): 2 L foot: Pain Intensity (Out of 10): 3 Overall Improvement % Improvement: 25 Objective Objective/Function: POSTURE: mild forward posture ,hips/knees flexed ,trunk flexed GAIT: reciprocal pattern 2 point gait with forward posture NEURO: denies paresthesia/tingling BALANCE: good- with cane MMT: ( peak force) quads right 24.1,left 20.9 ,hamstrings right 17.9 ,right 14.1. hip flexion right 24.1 .left 20.1 STAIRS: one step at time with rails Goals Goal 1:: Patient to be I with HEP Goal Progress: Goal Met Goal 2:: Patient to improve LFES score by 5-10 points to improve gait Goal Progress: Progressing Goal 3:: Patient to improve peak force quads/hams/hip by 5-10# to improve function and gait Goal Progress: Progressing Goal 4:: Patient to improve CATSIBE by 5-10 points to improve balance Goal Progress: Goal Met Goal 5:: Patient to improve functional gait assessment score by 5 points to improve gait and decrease risk of falls Goal Progress: Goal Met Goal 6:: Patient to demonstrate 50% improvement with increase function and gait Goal Progress: Progressing Plan Plan: PT INTERVENTIONS PROGRESSIVE BALANCE TRAINING ,STRENGTHENING BLE QUADS/HAMS/HIP ,FUNCTIONAL STRENGTHENING AND ENDURANCE PROGRAM D/C Information d/c sentence: If there are questions or concerns regarding this patient's physical therapy, please feel free to call me at [phone]. Thank you for the referral of this patient. Sincerely, Carlos Benito, PT, Cert MDT, OCS Balance/Gait/Functional tests Balance/Special Test Scores Functional Gait Assessment Score: 21 % Disability: 30.0000 CATSIB Score (Max score 120 seconds): 90 Lower Extremity Functional Score: 41 Improvement % Improvement: 25
== END 2023-11-01 19:00 | disposition home or self-care (01) ==
LOC: PT 13:30
PROVIDERS: PCP Student in an Organized Health Care Education/Training Program; Referring Provider Student in an Organized Health Care Education/Training Program; Visit Provider Student in an Organized Health Care Education/Training Program
DX: R53.1 Weakness (principal)
CPT/HCPCS: 97110; 97162; 97530

== ENCOUNTER → 2023-12-06 | Outpatient (CLI) | payer MEDICARE, OTHER, SELFPAY ==
[2023-12-06 11:24] LABS: EXAGEN MAILED SPECIMEN
[2023-12-06 12:14] LABS: Absolute Lymphocyte Count 1.81 X10^3/uL (0.83-4.51); Absolute Neutrophil Count 5.2 X10^3/uL (2.0-7.7); Basophil# 0.05 X10^3/uL; Basophil% 0.6 % (0-1); Eosinophil# 0.31 X10^3/uL; Eosinophils% 3.9 % (0-5); Hematocrit 41.6 % (37-47); Hemoglobin 13.3 g/dL (12.0-15.0); Lymphocyte # 1.81 X10^3/ul (0.83-4.51); Lymphocyte % 22.6 % (19-41); Mean Corpuscular Hgb 29.6 pg (27.0-32.0); Mean Corpuscular Volume 92.7 fL (81-99); Mean Platelet Vol. 12.6 fl (6.2-12.0); Monocyte# 0.61 X10^3/uL; Monocyte% 7.6 % (0-10); NRBC Flagged by Analyzer 0 % (0-5); Neutrophil # 5.21 X10^3/uL (2.7-7.7); Neutrophil % 65.1 % (47-70); Platelet Count 184 K/mm3 (150-450); Red Blood Count 4.49 M/mm3 (4.2-5.4)
[2023-12-06 12:18] LABS: Erythrocyte Sedimentation Rate 15 mm/hr (0-30)
[2023-12-06 12:52] LABS: Color, Urine Yellow (Yellow); Glucose, Dipstick Normal (Normal); Ketone-Dipstick Negative (Negative); Leukocyte Esterase-Dipstick 25 /ul (Negative); Nitrite-Dipstick Negative (Negative); Occult Blood-Urine Negative /ul (Negative); Protein-Dipstick 15 mg/dl (Negative); Urine Bilirubin Dipstick Negative (Negative); Urine Clarity Clear (Clear); Urine Urobilinogen 1 mg/dl (Normal)
[2023-12-06 13:06] LABS: ALB/GLOB Ratio 0.8 RATIO (0.9-2.4); AST(SGOT) 15 U/L (15-37); Alanine Aminotransfer ALT/SGPT 14 U/L (13-56); Albumin, Serum 3.1 g/dL (3.2-5.0); Alkaline Phosphatase 111 U/L (45-117); Anion Gap 4 (5-15); BUN 13 mg/dL (7-18); BUN/Creat Ratio 14.4 RATIO (10-20); CRP 7.35 mg/L (0.0-3.0); Calcium,Total 9.2 mg/dL (8.5-10.1); Chloride 104 mmol/L (98-107); EST Glomerular Filtration Rate 64 mL/min (>60); Est Glom Filt Rate - Afr Amer 77 mL/min (>60); Globulin 3.7 g/dL (2.2-4.2); Glucose 115 mg/dL (74-106); Potassium 3.4 mmol/L (3.5-5.1); Protein, Total 6.8 g/dL (6.4-8.2); Sodium Level 140 mmol/L (136-145); Uric Acid 3.6 mg/dL (2.6-6.0)
[2023-12-06 13:17] LABS: Protein:Creat Ratio 73 mg/g CRE (0-200)
[2023-12-06 13:27] LABS: Hepatitis B Surface Antibody Non-Reactive; Hepatitis B Surface Antigen Non-Reactive (Nonreactive); Hepatitis C Antibody Non-Reactive (Nonreactive)
== END | disposition home or self-care (01) ==
PROVIDERS: PCP Student in an Organized Health Care Education/Training Program; Referring Provider Internal Medicine Rheumatology; Visit Provider Internal Medicine Rheumatology
DX: M06.4 Inflammatory polyarthropathy (principal); R76.8 Other specified abnormal immunological findings in serum; M79.7 Fibromyalgia; M19.041 Primary osteoarthritis, right hand; M47.897 Other spondylosis, lumbosacral region; M17.0 Bilateral primary osteoarthritis of knee
CPT/HCPCS: 36415; 80053; 81002; 82570; 84156; 84550; 85025; 85652; 86140; 86706; 86803; 87340

== ENCOUNTER → 2024-02-08 | Outpatient (CLI) | payer MEDICARE, OTHER, SELFPAY ==
[2024-02-08 15:31] LABS: Absolute Lymphocyte Count 2.33 X10^3/uL (0.83-4.51); Basophil# 0.05 X10^3/uL; Basophil% 0.3 % (0-1); Eosinophil# 0.07 X10^3/uL; Eosinophils% 0.4 % (0-5); Hemoglobin 13.3 g/dL (12.0-15.0); Lymphocyte # 2.33 X10^3/ul (0.83-4.51); Mean Corp Hgb Conc 32.4 g/dL (32-36); Mean Corpuscular Volume 92.6 fL (81-99); Mean Platelet Vol. 12.9 fl (6.2-12.0); Monocyte# 1.05 X10^3/uL; Monocyte% 6.7 % (0-10); NRBC Flagged by Analyzer 0 % (0-5); Neutrophil # 11.99 X10^3/uL (2.7-7.7); Platelet Count 213 K/mm3 (150-450); RBC Distribution Width CV 14.3 % (11.6-14.6); Red Blood Count 4.43 M/mm3 (4.2-5.4); White Blood Count 15.6 K/mm3 (4.4-11.0)
[2024-02-08 16:00] LABS: ALB/GLOB Ratio 0.9 RATIO (0.9-2.4); AST(SGOT) 13 U/L (15-37); Alanine Aminotransfer ALT/SGPT 18 U/L (13-56); Alkaline Phosphatase 119 U/L (45-117); Anion Gap 7 (5-15); BUN 16 mg/dL (7-18); BUN/Creat Ratio 19.7 RATIO (10-20); Calcium,Total 9.2 mg/dL (8.5-10.1); Chloride 104 mmol/L (98-107); Creatinine, Serum 0.81 mg/dL (0.55-1.02); EST Glomerular Filtration Rate 72 mL/min (>60); Est Glom Filt Rate - Afr Amer 87 mL/min (>60); Globulin 3.5 g/dL (2.2-4.2); Glucose 67 mg/dL (74-106); Potassium 3.5 mmol/L (3.5-5.1); Protein, Total 6.5 g/dL (6.4-8.2); Sodium Level 139 mmol/L (136-145); Thyroid Stim Hormone (TSH) 0.087 uIU/mL (0.358-3.740)
== END | disposition home or self-care (01) ==
LOC: MTLAB 13:22
PROVIDERS: PCP Student in an Organized Health Care Education/Training Program; Referring Provider Internal Medicine Rheumatology; Visit Provider Internal Medicine Rheumatology
DX: M06.4 Inflammatory polyarthropathy (principal); R76.8 Other specified abnormal immunological findings in serum; M79.7 Fibromyalgia; Z87.39 Personal history of other diseases of the musculoskeletal system and connective tissue; Z79.899 Other long term (current) drug therapy
CPT/HCPCS: 36415; 80053; 84443; 85025

== ENCOUNTER 2024-02-23 10:30 | Outpatient (RCR) | payer MEDICARE, OTHER, SELFPAY ==
--- NOTE | 2024-01-26 11:40 | HP.PTEVAL_ITS ---
Patient's Visit Information Visit Information Visit Information: CIARA HODGES is a 78 year old F referred to Physical Therapy by Dr. Frank Moore DO with a diagnosis of Leg weakness. Date of Evaluation: 01/26/24 Physical Therapist: Keven Antunez, ALEJANDROT, OCS, CSCS Visit Plan Frequency: 2x /Week Duration: 4-6 Weeks Plan: 2x/week for 4-6 weeks: reviewed squats and hip abduction standing the first day and recommend progress to 3 sets Please teach core strength mat to I, then HS and gastroc stretch to HEP, then standing LE, core, back and postural strength to HEP. Ensure challenge and I. Subjective Subjective: Normal f/u with doctor and told her about stumbling and sent for balance. Has OA everywhere and painful all over, uses some creams voltarin and started to see Manuel who put her on an M medication that she will start today. She stumbled 2 weeks ago going out front door where there is one step. Uses cane to get around just lost her balance and twisted L knee but did not fall to the ground. No other incidence like that. No falls lately in over a year. Feels like balance is OK. Uses fecane due to weakness sin legs. Used to work out at to get stronger for a month or two with a friend. Hasn't felt like doing that lately but did feel stronger. Does not need cane in the house. Has walker that she does not use. sleep is OK lalit w[place]ell. Employed: none Lives with friend: one story house with one step with hold. Basic aDLs dress self , bathroom self, shower with walk in shower with chair that she does not use. Spends day cleaning cooking. Watches TV. Pain Back and body: Pain Intensity (Out of 10): 0 Pain Intensity Range: 0 and 5 Objective Objective: Walks back to PT with cane in R UE mod I but slow and labored trasntiions and unstable pelvis. Sit to stand with UE I, stand to sit , I, bed I. LB AROM mod deficits all directions with pain with ext and flexion. LE AROM is WFL b ut hip extension 5 degrees B and weak. knees and ankles WFL. Has tightness in gastroc and HS at -30 90/90 test. Quads also tight at 90 flexion with hips in neutral. strength core 3, hip abd and ext and flexion 3/5, knee flex and ext 3+, and ankles 4-. reflexes 2/3 patella and achilles Sensation LE WNL to gross light touch B coordination to reciprocal toe adn heel tap is poor. balance is fair but hard time moving due to weakness and pain in joints and LB. Uses back and gluts to exit chair vs quads. Balance/Special Test Scores Functional Gait Assessment Score: 20 % Disability: 33.3400 CATSIB Score (Max score 120 seconds): 120 Lower Extremity Functional Score: 30 TUG Test Time Seconds: 13 30 Second Chair Rise Test Seconds: 10 Goals Goal 1:: I appropriate HEP for LE flex, core and postural adn LE strength via HEP Goal Time Frame: 4-6 Weeks Goal 2:: 12 on 30 SSTS and 22 on FGa to limit fall r isk Goal Time Frame: 4-6 Weeks Goal 3:: Pt feel 50% better in overall pain and mobility Goal Time Frame: 4-6 Weeks Goal 4:: LEFS score 45 Goal Time Frame: 4-6 Weeks Rehabilitation Potential Physical Therapy Diagnosis: leg weakness and tightness effecting safe function Rehabilitation Potential: Fair Anticipated Interventions Patient/Client Instruction: Educate patient on: Condition and Plan of Care For the Purpose of:: To decrease pain, To increase ROM, To improve nutrient delivery to tissue, To improve muscle performance and motor function and To increase tolerance to activity/condition/position Therapeutic Exercise to Include: Strength training, Balance training, Flexibilty training, Gait and locomotor training and Active ROM For the Purpose of:: To decrease pain, To increase ROM, To improve nutrient delivery to tissue, To improve muscle performance and motor function, To increase tolerance to activity/condition/position, To improve ability of physical actions for home/community/work/leisure, To improve gait and locomotor functions and To improve safety Text: Thank you for the opportunity to evaluate your patient. For Medicare and Medicare HMO plans, please review the plan of care and approve it. It will need to be FAXED BACK to us at [phone] for Medicare purposes. For Medicare only, by signing this I certify the plan of care. Please let me know if there are questions or concerns regarding this plan of care. Physician Signature: Dat e:
--- NOTE | 2024-02-23 11:15 | HP.PTDCSUM ---
Discharge Summary D/C summary: It has been my pleasure to treat CIARA HODGES referred by Dr. Frank Moore DO, with the diagnosis of Leg weakness for a total of 6 visit(s). Discharge Date: 02/23/24 Please see the following information for a summary of their discharge status. Subjective Subjective: Pain much better. Can get around house without cane at times. Legs slowly getting stronger. Doing exercises at home and they challenge her alittle bit. To doctor in March. Pain Back and body: Pain Intensity (Out of 10): 3 Overall Improvement % Improvement: 75 Objective Objective/Function: +2 on 30 SSTS +3 FGA +12 LEFS Walking without aD in clinic I, steps with either one rail. Walking slow but steady . Goals Goal 1:: I appropriate HEP for LE flex, core and postural adn LE strength via HEP Goal Progress: Goal Met Goal 2:: 12 on 30 SSTS and 22 on FGa to limit fall r isk Goal Progress: Goal Met Goal 3:: Pt feel 50% better in overall pain and mobility Goal Progress: 75% Goal 4:: LEFS score 45 Goal Progress: Progressing Plan Plan: d/c to HEP D/C Information d/c sentence: If there are questions or concerns regarding this patient's physical therapy, please feel free to call me at [phone]. Thank you for the referral of this patient. Sincerely, Keven Antunez, DPT, OCS, CSCS Balance/Gait/Functional tests Balance/Special Test Scores Functional Gait Assessment Score: 23 % Disability: 23.3400 CATSIB Score (Max score 120 seconds): 120 Lower Extremity Functional Score: 42 TUG Test Time Seconds: 13 Tug Test: <20 sec.=mostly independent 30 Second Chair Rise Test Seconds: 12 Improvement % Improvement: 75
== END 2024-02-23 19:00 | disposition home or self-care (01) ==
LOC: PT 10:30
PROVIDERS: PCP Student in an Organized Health Care Education/Training Program; Visit Provider Student in an Organized Health Care Education/Training Program
DX: R29.898 Other symptoms and signs involving the musculoskeletal system (principal); Z91.81 History of falling
CPT/HCPCS: 97110; 97161

== ENCOUNTER → 2024-04-14 | Outpatient (CLI) | payer MEDICARE, OTHER, SELFPAY ==
[2024-04-14 17:55] LABS: Absolute Lymphocyte Count 1.88 X10^3/uL (0.83-4.51); Absolute Neutrophil Count 5.3 X10^3/uL (2.0-7.7); Basophil# 0.07 X10^3/uL; Basophil% 0.9 % (0-1); Eosinophil# 0.39 X10^3/uL; Eosinophils% 4.8 % (0-5); Hematocrit 38.9 % (37-47); Hemoglobin 12.7 g/dL (12.0-15.0); Lymphocyte # 1.88 X10^3/ul (0.83-4.51); Lymphocyte % 23.3 % (19-41); Mean Corp Hgb Conc 32.6 g/dL (32-36); Mean Corpuscular Volume 94.9 fL (81-99); Mean Platelet Vol. 13.2 fl (6.2-12.0); Monocyte# 0.39 X10^3/uL; Monocyte% 4.8 % (0-10); NRBC Flagged by Analyzer 0 % (0-5); Neutrophil % 65.8 % (47-70); Platelet Count 165 K/mm3 (150-450); RBC Distribution Width CV 14.5 % (11.6-14.6); RBC Distribution Width SD 50.1 fl (35.1-43.9); White Blood Count 8.1 K/mm3 (4.4-11.0)
[2024-04-14 18:12] LABS: ALB/GLOB Ratio 0.9 RATIO (0.9-2.4); AST(SGOT) 20 U/L (15-37); Alanine Aminotransfer ALT/SGPT 17 U/L (13-56); Alkaline Phosphatase 106 U/L (45-117); Anion Gap 7 (5-15); BUN 14 mg/dL (7-18); BUN/Creat Ratio 19.7 RATIO (10-20); Calcium,Total 8.8 mg/dL (8.5-10.1); Chloride 103 mmol/L (98-107); Creatinine, Serum 0.71 mg/dL (0.55-1.02); EST Glomerular Filtration Rate 84 mL/min (>60); Est Glom Filt Rate - Afr Amer 101 mL/min (>60); Globulin 3.5 g/dL (2.2-4.2); Glucose 95 mg/dL (74-106); Potassium 3.2 mmol/L (3.5-5.1); Protein, Total 6.5 g/dL (6.4-8.2); Sodium Level 140 mmol/L (136-145)
== END | disposition home or self-care (01) ==
LOC: MTLAB 15:39
PROVIDERS: PCP Student in an Organized Health Care Education/Training Program; Referring Provider Internal Medicine Rheumatology; Visit Provider Internal Medicine Rheumatology
DX: M06.4 Inflammatory polyarthropathy (principal); R76.8 Other specified abnormal immunological findings in serum; M79.7 Fibromyalgia; M19.041 Primary osteoarthritis, right hand; Z79.899 Other long term (current) drug therapy
CPT/HCPCS: 36415; 80053; 85025

== ENCOUNTER → 2024-06-06 | Outpatient (CLI) | payer MEDICARE, OTHER, SELFPAY ==
[2024-06-06 12:23] LABS: Absolute Lymphocyte Count 1.73 X10^3/uL (0.83-4.51); Absolute Neutrophil Count 6.6 X10^3/uL (2.0-7.7); Basophil# 0.09 X10^3/uL; Basophil% 0.9 % (0-1); Eosinophils% 5.1 % (0-5); Lymphocyte # 1.73 X10^3/ul (0.83-4.51); Lymphocyte % 17.5 % (19-41); Mean Corp Hgb Conc 33.3 g/dL (32-36); Mean Corpuscular Hgb 31.9 pg (27.0-32.0); Mean Corpuscular Volume 95.8 fL (81-99); Mean Platelet Vol. 12.2 fl (6.2-12.0); Monocyte# 0.89 X10^3/uL; NRBC Flagged by Analyzer 0 % (0-5); Neutrophil # 6.64 X10^3/uL (2.7-7.7); Neutrophil % 67.2 % (47-70); Platelet Count 213 K/mm3 (150-450); RBC Distribution Width CV 14.1 % (11.6-14.6); Red Blood Count 4.07 M/mm3 (4.2-5.4); White Blood Count 9.9 K/mm3 (4.4-11.0)
[2024-06-06 13:01] LABS: ALB/GLOB Ratio 1.4 RATIO (0.9-2.4); AST(SGOT) 15 U/L (<=31); Alanine Aminotransfer ALT/SGPT 9 U/L (<=34); Albumin, Serum 3.6 g/dL (3.4-4.8); Alkaline Phosphatase 98 U/L (35-104); Anion Gap 12 (5-15); BUN 16 mg/dL (4-19); BUN/Creat Ratio 17.9 RATIO (10-20); Carbon Dioxide 25.6 mmol/L (21.0-32.0); Chloride 102 mmol/L (98-108); Creatinine, Serum 0.92 mg/dL (0.70-1.20); EST Glomerular Filtration Rate 63 (>60); Globulin 2.5 g/dL (2.2-4.2); Glucose 111 mg/dL (70-99); Potassium 4.2 mmol/L (3.3-5.1); Protein, Total 6.1 g/dL (5.9-8.4); Sodium Level 140 mmol/L (133-145); Total Bilirubin 0.62 mg/dL (0.00-1.30)
== END | disposition home or self-care (01) ==
LOC: MTLAB 10:21
PROVIDERS: PCP Student in an Organized Health Care Education/Training Program; Referring Provider Internal Medicine Rheumatology; Visit Provider Internal Medicine Rheumatology
DX: M06.4 Inflammatory polyarthropathy (principal); R76.8 Other specified abnormal immunological findings in serum; M79.7 Fibromyalgia; M19.041 Primary osteoarthritis, right hand; Z79.899 Other long term (current) drug therapy
CPT/HCPCS: 36415; 80053; 85025

== ENCOUNTER 2024-07-04 16:17 | Emergency (ER) | payer MEDICARE, OTHER, SELFPAY ==
--- NOTE | 2024-07-04 16:18 | RAD_ITS ---
PROCEDURE: CHEST 1 VIEW (PORTABLE) 07/04/2024 REASON FOR EXAM: CHEST PAIN TECHNIQUE: Frontal view of the chest. COMPARISON: 07/26/2022 FINDINGS: Hardware: Status post left axillary lymph node dissection. Heart: The heart size is normal. Lungs: The lungs are clear. Bones: The bones are unremarkable. Other: Tortuous ectatic aorta. RAD/Chest 1 View (Portable) IMPRESSION: No Acute Findings. Reading Location: [id number]
--- NOTE | 2024-07-04 16:18 | EKG12_ITS ---
Test Reason : CP Blood Pressure : */* mmHG Vent. Rate : 52 BPM Atrial Rate : 52 BPM P-R Int : 270 ms QRS Dur : 132 ms QT Int : 488 ms P-R-T Axes : 59 40 34 degrees QTcB Int : 453 ms Sinus bradycardia with 1st degree A-V block Right bundle branch block Abnormal ECG Confirmed by ENA MORRISON, CHRIS ([id number]), newspaper or periodical editor JESÚS GUIDRY ([id number]) on 07/05/2024 1:33:23 PM Referred By: Confirmed By: CHRIS SUTHERLAND MD
[2024-07-04 16:19] VITALS: BP 179/90; PULSE 57; RESP 18; TEMP 36.8; O2SAT 95
[2024-07-04 16:41] LABS: Absolute Lymphocyte Count 1.41 X10^3/uL (0.83-4.51); Absolute Neutrophil Count 2.9 X10^3/uL (2.0-7.7); Basophil# 0.05 X10^3/uL; Basophil% 0.9 % (0-1); Eosinophil# 0.27 X10^3/uL; Eosinophils% 4.9 % (0-5); Hematocrit 34.7 % (37-47); Hemoglobin 11.7 g/dL (12.0-15.0); Lymphocyte # 1.41 X10^3/ul (0.83-4.51); Lymphocyte % 25.6 % (19-41); Mean Corp Hgb Conc 33.7 g/dL (32-36); Mean Corpuscular Hgb 31.9 pg (27.0-32.0); Mean Corpuscular Volume 94.6 fL (81-99); Mean Platelet Vol. 11.5 fl (6.2-12.0); Monocyte# 0.82 X10^3/uL; Monocyte% 14.9 % (0-10); NRBC Flagged by Analyzer 0 % (0-5); Neutrophil # 2.94 X10^3/uL (2.7-7.7); Neutrophil % 53.3 % (47-70); Platelet Count 164 K/mm3 (150-450); RBC Distribution Width CV 14.1 % (11.6-14.6); RBC Distribution Width SD 47.5 fl (35.1-43.9); Red Blood Count 3.67 M/mm3 (4.2-5.4); White Blood Count 5.5 K/mm3 (4.4-11.0)
[2024-07-04 16:48] LABS: International Normalized Ratio 0.9; Prothrombin Time (Protime)PT. 12.4 SECONDS (11.7-14.9)
[2024-07-04 17:04] LABS: Anion Gap 9 (5-15); BUN 15 mg/dL (4-19); BUN/Creat Ratio 16.8 RATIO (10-20); Calcium,Total 9.2 mg/dL (7.6-11.0); Carbon Dioxide 27.6 mmol/L (21.0-32.0); Chloride 103 mmol/L (98-108); Creatinine, Serum 0.88 mg/dL (0.70-1.20); EST Glomerular Filtration Rate 66 (>60); Glucose 104 mg/dL (70-99); Potassium 3.4 mmol/L (3.3-5.1); Sodium Level 140 mmol/L (133-145); Troponin T High Sensitivity 19 ng/L (<=14)
--- NOTE | 2024-07-04 17:16 | ED.VIS.CHEST ---
HPI History of Present Illness Chief Complaint: Chest Pain Informant: patient Onset/Context/Timing Onset: Days (5) Activity at onset: sudden and - (Fall) Timing: Continuous Quality: Positive for Dull Location: Substernal Worsened By: Movement of Arm Relieved By: Nothing Associated Symptoms: Positive for Dyspnea and Cough; Negative for Nausea, Vomiting, Diaphoresis, Fever, Lightheadedness, Acid Reflux or Palpitations Narrative Narrative: Patient presents with chest pain that began after a fall 5 days ago. Patient states her pain is constant. Patient states it is dull. Patient states it is over the substernal area. Patient states it is worse when she moves her arms. Patient denies any nausea or vomiting. Patient admits to some shortness of breath and cough. Patient denies any sputum production. Patient denies any fevers or chills. Patient denies any nausea or vomiting. Patient denies any lightheadedness or dizziness. Patient denies any head injury or loss of consciousness when she fell. CVD Risk Factors: Positive for Hypertension and Hypercholesterolemia; Negative for Diabetes, Family History 1' </=55 or Smoking PE Risk Factors: Positive for Cancer; Negative for Recent Travel/Surgery, Recent Immobilization, Prior DVT or PE or OCP + Smoking + >/=35 PFSH PFSH Medical History History of stroke with current residual effects Brain TIA Essential (primary) hypertension Obesity Pure hypercholesterolemia Chronic diastolic (congestive) heart failure Diverticulosis Abnormal electrocardiogram Right bundle branch block Gout Asthma Osteoarthritis GERD (gastroesophageal reflux disease) Chronic pain syndrome Breast cancer (2017) Ischemic cerebrovascular accident (CVA) (06/18/17) Home Medications ?Medication ?Instructions ?Recorded ?Last Taken ?Type gabapentin 300 mg capsule 300 mg PO QHS pain manangement 10/18/13 03/07/18 04:00 History hydrocortisone 2.5 % topical cream 1 applicatio topical DAILY PRN 06/18/17 Unknown History Itching albuterol sulfate 90 mcg/actuation 2 puff inhalation Q6H PRN Asthma 07/21/17 Unknown History aerosol inhaler (Ventolin HFA) carvedilol 12.5 mg tablet 12.5 mg PO BID BP 01/18/18 03/07/18 04:00 History allopurinol 300 mg tablet 300 mg PO DAILY gout 08/23/18 Unknown History gabapentin 100 mg capsule 100 mg PO DAILY pain management 08/23/18 Unknown History amlodipine 5 mg tablet 5 mg PO DAILY #90 tabs 02/29/20 Unknown Rx cholecalciferol (vitamin D3) 25 1,000 unit PO DAILY 05/08/20 Unknown History mcg (1,000 unit) tablet cyanocobalamin (vitamin B-12) 100 100 mcg PO DAILY 05/08/20 Unknown History mcg tablet (Vitamin B-12) diclofenac sodium 1 % topical gel 2 g topical 4X/DAY PRN LE pain 05/08/20 Unknown History mometasone 100 mcg/actuation HFA 2 puff inhalation DAILY PRN SOB 05/08/20 Unknown History aerosol inhaler (Asmanex HFA) furosemide 40 mg tablet 40 mg PO QDAY DIURETIC #90 tabs 09/17/20 Unknown Rx nitroglycerin 0.4 mg sublingual 0.4 mg sublingual Q5-15M PRN chest 03/28/21 Unknown Rx tablet pain #25 tabs losartan 100 mg tablet 100 mg PO DAILY #90 tabs 11/14/21 Unknown Rx omeprazole 40 mg capsule,delayed 40 mg PO DAILY gerd 11/14/21 Unknown History release oxybutynin chloride 5 mg tablet 1 - 2 tablet PO DAILY bladder 11/14/21 Unknown History spasms atorvastatin 20 mg tablet 20 mg PO QHS #30 tabs 07/27/22 Unknown Rx melatonin 10 mg tablet 5 mg PO QHS 12/01/22 Unknown History sertraline 25 mg tablet 25 mg PO DAILY 12/01/22 Unknown History clopidogrel 75 mg tablet 75 mg PO DAILY #90 tabs 06/14/23 Unknown Rx tramadol 50 mg tablet 50 mg PO Q8H PRN chronic pain #12 07/04/24 Unknown Rx tabs Allergy/AdvReac Type Severity Reaction Status Date / Time bupivacaine Allergy NEEDS Verified 07/04/24 16:21 FOLLOW-UP Gadolinium-MRI Contrast Allergy Chest Verified 07/04/24 16:21 Medium (MRI) tightness ibandronate sodium (From Allergy Rash Verified 07/04/24 16:21 Boniva) levofloxacin (From Levaquin) Allergy Swelling Verified 07/04/24 16:21 lidocaine Allergy NEEDS Verified 07/04/24 16:21 FOLLOW-UP Penicillins Allergy Rash Verified 07/04/24 16:21 procaine (From Novocain) Allergy NEEDS Verified 07/04/24 16:21 FOLLOW-UP mannitol (From Reclast) AdvReac Pain in Verified 07/04/24 16:21 joints water for injection,sterile AdvReac Pain in Verified 07/04/24 16:21 (From Reclast) joints zoledronic acid (From AdvReac Pain in Verified 07/04/24 16:21 Reclast) joints Family History Mother CVA (cerebral vascular accident) Heart disease Father Heart disease Brother Cancer Other Breast cancer Surgical History History of total right knee replacement History of arthroplasty of left knee Hx of cholecystectomy History of lumpectomy of left breast (11/2016) History of total abdominal hysterectomy Social History Smoking Status: Never smoker how long ago did patient quit smokin years ago second hand exposure: Yes alcohol intake: never substance use type: does not use caffeine: Yes Type: coffee Number of servings: 3 ROS ROS ED Constitutional Constitutional ED: Reports sweats; Denies chills or fever(s) Eyes Eyes: Denies blurry vision or change in vision ENT ENT ED: Reports sore throat; Denies rhinorrhea Cardiovascular Cardiovascular: Reports chest pain; Denies palpitations Respiratory/Chest Respiratory/Chest: Reports cough; Denies dyspnea Gastrointestinal Gastrointestinal: Denies nausea or vomiting Genitourinary Genitourinary ED: Denies dysuria or hematuria Musculoskeletal Musculoskeletal: Reports back pain; Denies neck pain Integumentary Denies abscess or rash Neurologic Neurologic: Denies headache(s) or weakness Allergic/Immunologic Allergic/Immunologic ED: Denies mouth swelling or urticaria EXAM Physical Exam Const Vital Signs: 07/04/24 16:19 07/04/24 17:14 Temperature 98.2 F Temperature Source Oral Pulse Rate 57 L Respiratory Rate 18 Blood Pressure 179/90 H Blood Pressure Mean 119 Pulse Ox 95 Oxygen Delivery Method Room Air Room Air Positive well nourished and well developed Constitutional Narrative: BMI is 37.0 General Appearance ED: well developed and NAD HEENT Reports moist mucous membranes normocephalic and atraumatic Neck supple and no JVD Chest Wall Chest: tenderness sternum Resp normal respiratory effort and clear to auscultation bilaterally Cardio regular rate and regular rhythm GI soft to palpation, non-tender and non-distended Extremity normal to inspection General Extremety ED: Yes edema; Negative for tenderness General Extremity: edema Neuro oriented x3, CN's II-XII intact bilaterally and no sensory deficits noted Sensorium / Orientation: awake and alert Motor Exam: strength 5/5 throughout Psych mental status grossly normal Heart Score History: Slightly/Non-Suspicious ECG: Normal Age: >/= 65 years Risk Factors: 1 or 2 Risk Factors Troponin: >1 - <3 Normal Limit Score: 4 MDM MDM MDM Narrative Medical decision making narrative: Differential diagnosis includes chest contusion, pneumonia, pneumothorax, cardiac dysrhythmia, cardiac ischemia, and electrolyte abnormality. EKG will be obtained to assess for cardiac dysrhythmia and cardiac ischemia. Chest x-ray will be obtained to assess for pneumonia and pneumothorax. CBC will be obtained to assess for leukocytosis and anemia. Basic metabolic profile will be obtained to assess for electrolyte abnormality and renal function. PT with INR will be obtained to assess for coagulopathy. High-sensitivity troponin will be obtained to assess for cardiac ischemia. 2-hour repeat high-sensitivity troponin will be obtained to assess for ongoing cardiac ischemia. Lab Data Attestation: I reviewed the patient's lab results. Lab results narrative: CBC was reviewed. There is a mild anemia with a hemoglobin of 11.7 and hematocrit 34.7. PT with INR was reviewed and was within normal limits. Basic metabolic profile was reviewed and was within normal limits. Initial high-sensitivity troponin was slightly elevated at 19. 2-hour repeat high-sensitivity troponin was 15. Labs: Laboratory Results - last 24 hr 07/04/24 16:27 WBC 5.5 RBC 3.67 L Hgb 11.7 L Hct 34.7 L MCV 94.6 MCH 31.9 MCHC 33.7 RDW Std Deviation 47.5 H RDW Coeff of [place] 14.1 Plt Count 164 MPV 11.5 Immature Gran % (Auto) 0.400 Neut % (Auto) 53.3 Lymph % (Auto) 25.6 [place] % (Auto) 14.9 H Eos % (Auto) 4.9 Baso % (Auto) 0.9 Absolute Neuts (auto) 2.9 Absolute Lymphs (auto) 1.41 Nucleated RBC % 0 PT 12.4 INR 0.9 Sodium 140 Potassium 3.4 Chloride 103 Carbon Dioxide 27.6 Anion Gap 9 BUN 15 Creatinine 0.88 Est GFR (MDRD) Non-Af 66 BUN/Creatinine Ratio 16.8 Glucose 104 H Calcium 9.2 Troponin T High Sens 19 H Radiography Chest X-Ray - ED: 1 View, Read by ED Physician, Read by Radiologist and No Acute Disease EKG Initial EKG: Attestation: I personally reviewed and interpreted this EKG as follows: Interpretation: No Acute Injury Pattern, Sinus Bradycardia (52), RBBB and AV Block (First-degree) Comments: EKG was obtained. On my independent interpretation, shows sinus bradycardia with a first-degree AV block with a rate of 52. NC interval was 270 ms. QRS interval is 132 ms. QTc interval is 453 ms. [place] was normal at 40. There are no acute ST or T wave changes. There is a right bundle branch block pattern noted. Prior EKG tracings: available for review Prior: Unchanged (07/26/2022) Treatment and Re-Evaluation :: Patient was given aspirin. Patient was advised of the findings. Patient was advised that this is most likely musculoskeletal pain. Patient was given prescription for tramadol. Patient was given a dose here. Patient was instructed to use ice to her chest. Patient was instructed to follow-up with her primary care physician in 5 to 7 days. Patient understood and was agreeable with the plan. All questions were answered. Discharge Plan Triage Chief Complaint: Chest Pain ED Provider: Keven Orourke Dx/Rx/DC Orders Clinical Impression: Chest pain, Essential (primary) hypertension Instructions: ED Chest Pain, Uncertain Cause, ED Chest Wall Contusion Prescriptions: Continued tramadol 50 mg tablet 50 mg PO Q8H PRN (Reason: chronic pain) Qty: 12 0RF No Action albuterol sulfate [Ventolin HFA] 90 mcg/actuation HFA aerosol inhaler 2 puff INHALATION Q6H PRN (Reason: Asthma) carvedilol 12.5 mg tablet 12.5 mg PO BID diclofenac sodium 1 % gel 2 g TOPICAL 4X/DAY PRN (Reason: LE pain) furosemide 40 mg tablet 40 mg PO QDAY Qty: 90 3RF Asmanex HFA 100 mcg/actuation HFA aerosol inhaler 2 puff INHALATION DAILY PRN (Reason: SOB) cyanocobalamin (vitamin B-12) [Vitamin B-12] 100 mcg tablet 100 mcg PO DAILY cholecalciferol (vitamin D3) 25 mcg (1,000 unit) tablet 1,000 unit PO DAILY omeprazole 40 mg capsule,delayed release(DR/EC) 40 mg PO DAILY oxybutynin chloride 5 mg tablet 1 - 2 tablet PO DAILY losartan 100 mg tablet 100 mg PO DAILY Qty: 90 3RF sertraline 25 mg tablet 25 mg PO DAILY gabapentin 300 MG capsule 300 mg PO QHS Patient Comments: nerve pain allopurinol 300 mg tablet 300 mg PO DAILY Patient Comments: gout hydrocortisone 1 APPLIC cream 1 applicatio TOPICAL DAILY PRN (Reason: Itching) gabapentin 100 mg capsule 100 mg PO DAILY atorvastatin 20 mg Tablet 20 mg PO QHS Qty: 30 0RF melatonin 10 mg tablet 5 mg PO QHS amlodipine 5 mg tablet 5 mg PO DAILY Qty: 90 3RF nitroglycerin 0.4 mg tablet, sublingual 0.4 mg SUBLINGUAL Q5-15M PRN (Reason: chest pain) Qty: 25 3RF Rx Instructions: do not exceed 3 doses per episode clopidogrel 75 mg tablet 75 mg PO DAILY Qty: 90 3RF Primary Care Provider: Frank Moore Referrals: Frank Moore DO [Primary Care Provider] - 5-7 Days Print Language: Icelandic Disposition Disposition: Home, Self Care
[2024-07-04 17:17] VITALS: BP 173/69; PULSE 58; RESP 14; O2SAT 94
[2024-07-04 17:20] VITALS: BMI 36.9
[2024-07-04 18:00] VITALS: BP 180/67; PULSE 60; RESP 16; O2SAT 98
[2024-07-04 19:00] VITALS: BP 174/75; PULSE 60; RESP 17; O2SAT 94
[2024-07-04 19:23] LABS: Troponin T High Sens 2 HR 15 ng/L (<=14)
[2024-07-04 20:00] VITALS: BP 166/72; PULSE 61; RESP 15; O2SAT 92
[2024-07-04] MEDS: traMADol 50 MG Tablet PO (20:49)
[2024-07-04] MEDS: Aspirin 81 MG TAB.CHEW 324 MG PO (20:49)
[2024-07-04 20:56] VITALS: BP 166/72; PULSE 61; RESP 15; TEMP 36.8; O2SAT 92
== END 2024-07-04 20:56 | disposition home or self-care (01) ==
PROVIDERS: Emergency Provider Emergency Medicine; PCP Student in an Organized Health Care Education/Training Program; Visit Provider Emergency Medicine
DX: R07.9 Chest pain, unspecified (principal); I11.0 Hypertensive heart disease with heart failure; I50.32 Chronic diastolic (congestive) heart failure; E78.00 Pure hypercholesterolemia, unspecified; G89.4 Chronic pain syndrome; Z79.02 Long term (current) use of antithrombotics/antiplatelets; Z79.899 Other long term (current) drug therapy; Z86.73 Personal history of transient ischemic attack (TIA), and cerebral infarction without residual deficits
CPT/HCPCS: 71045; 80048; 84484; 85025; 85610; 93005; 99283; A4216

== ENCOUNTER → 2024-09-05 | Outpatient (CLI) | payer MEDICARE, OTHER, SELFPAY ==
[2024-09-05 11:05] LABS: AST(SGOT) 40 U/L (<=31); Alanine Aminotransfer ALT/SGPT 42 U/L (<=34); Albumin, Serum 3.4 g/dL (3.4-4.8); Alkaline Phosphatase 89 U/L (35-104); Anion Gap 9 (5-15); BUN 12 mg/dL (4-19); BUN/Creat Ratio 14.0 RATIO (10-20); Calcium,Total 8.9 mg/dL (7.6-11.0); Carbon Dioxide 24.9 mmol/L (21.0-32.0); Chloride 105 mmol/L (98-108); Globulin 2.4 g/dL (2.2-4.2); Glucose 152 mg/dL (70-99); Potassium 3.8 mmol/L (3.3-5.1)
[2024-09-05 11:12] LABS: Hematocrit 35.1 % (37-47); Hemoglobin 11.6 g/dL (12.0-15.0); Immature Granulocytes Count 0.020 X10^3/uL (0.0-0.0); Mean Corp Hgb Conc 33.0 g/dL (32-36); Mean Corpuscular Volume 96.4 fL (81-99); Mean Platelet Vol. 12.6 fl (6.2-12.0); NRBC Flagged by Analyzer 0 % (0-5); Platelet Count 194 K/mm3 (150-450); RBC Distribution Width CV 13.5 % (11.6-14.6); RBC Distribution Width SD 47.1 fl (35.1-43.9); Red Blood Count 3.64 M/mm3 (4.2-5.4); White Blood Count 6.1 K/mm3 (4.4-11.0)
== END | disposition home or self-care (01) ==
LOC: MTLAB 09:01
PROVIDERS: PCP Student in an Organized Health Care Education/Training Program; Referring Provider Internal Medicine Rheumatology; Visit Provider Internal Medicine Rheumatology
DX: M06.4 Inflammatory polyarthropathy (principal); R76.8 Other specified abnormal immunological findings in serum; N18.9 Chronic kidney disease, unspecified; Z87.39 Personal history of other diseases of the musculoskeletal system and connective tissue; Z79.899 Other long term (current) drug therapy
CPT/HCPCS: 36415; 80053; 85025

== ENCOUNTER → 2024-09-14 | Outpatient (CLI) | payer MEDICARE, OTHER, SELFPAY ==
--- NOTE | 2024-09-14 10:49 | US_ITS ---
PROCEDURE: ABDOMEN LIMITED 09/14/2024 REASON FOR EXAM: ELEVATED LIVER ENZYMES COMPARISON: None FINDINGS: Liver: Diffusely echogenic suggesting fatty infiltration. The liver is not enlarged. It measures 13.7 cm. Gallbladder: Surgically absent. Common bile duct: Dilated measuring up to 9 mm . Pancreas: Normal Other: Visualized portions of the right kidney are unremarkable. No right upper quadrant ascites. US/Abdomen Limited IMPRESSION: Fatty infiltration of the liver. Status post cholecystectomy. Reading Location: [place] [id number]
== END | disposition home or self-care (01) ==
LOC: US 10:48
PROVIDERS: PCP Student in an Organized Health Care Education/Training Program; Referring Provider Internal Medicine Rheumatology; Visit Provider Internal Medicine Rheumatology
DX: R74.8 Abnormal levels of other serum enzymes (principal); M06.4 Inflammatory polyarthropathy; R76.8 Other specified abnormal immunological findings in serum; M79.7 Fibromyalgia; M19.041 Primary osteoarthritis, right hand; Z79.899 Other long term (current) drug therapy
CPT/HCPCS: 76705

== ENCOUNTER → 2024-10-13 | Outpatient (CLI) | payer MEDICARE, OTHER, SELFPAY ==
--- OUTSIDE RECORDS SUMMARY | 2024-10-13 16:41 | XMS RPT_ITS | CCD ---
Author Organization [facility] ion Partnership [facility] Care Team Providers Care Core Sucker Name Role Phone CARMEN PATINO, DR MARIE Primary Care Physician [phone] Cody MORRISON MD, [place] Unavailable [phone] Frank Morales DO Primary Care Provider [phone] Cody MORRISON MD, Daesung Unavailable [phone] Frank Morales DO Primary Care Provider [phone] Cody MORRISON, Daesung Unavailable CARMEN PATINO, DR MARIE Attending Unavailable ROMAR DO, DR MARIE Primary Care Unavailable ROMAR DO, DR MARIE Attending Unavailable ROMAR DO, DR MARIE Primary Care Unavailable ROMAR DO, DR MARIE Attending Unavailable ROMAR DO, DR MARIE Primary Care Unavailable ROMAR DO, DR MARIE Attending Unavailable ROMAR DO, DR MARIE Primary Care Unavailable ROMAR DO, DR MARIE Attending Unavailable ROMAR DO, DR MARIE Primary Care Unavailable ROMAR DO, DR MARIE Attending Unavailable ROMAR DO, DR MARIE Primary Care Unavailable ROMAR DO, DR MARIE Attending Unavailable ROMAR DO, DR MARIE Primary Care Unavailable [facility] Attending Unavailabl e ROMAR DO, DR MARIE Primary Care Unavailable ROMAR DO, DR MARIE Attending Unavailable ROMAR DO, DR MARIE Primary Care Unavailable ROMAR DO, DR MARIE Attending Unavailable ROMAR DO, DR MARIE Primary Care Unavailable ROMAR DO, DR MARIE Attending Unavailable ROMAR DO, DR MARIE Primary Care Unavailable Romar DO, Dr. Marie Primary Care Provider [phone] Carmen PATINO, Dr. Marie Attending Provider [phone] Manuel MORRISON, Dr. Wolf Attending Provider Manuel MORRISON, Dr. Wolf Referring Provider Romar DO, Frank Primary Care Provider [phone] SAHRA OROZCO Attending Unavailable OROZCO, SAHRA Referring Unavailable ROMAR, FRANK Primary Care Unavailable OROZCO, SAHRA Referring Unavailable ROMAR, FRANK Primary Care Unavailable Romar DO, Dr. Marie Primary Care Provider [phone] Manuel MORRISON, Dr. Wolf Attending Provider Manuel MORRISON, Dr. Wolf Referring Provider Haven PATINO, Dr. Baca Attending Provider Haven PATINO, Dr. Baca Emergency Provider Jason MORRISON, Dr. Ovalles Attending Provider Josr Gomez Attending Unavailable Romar, Frank Primary Care Unavailable Vellanki, Maryann Attending Unavailable Romar, Frank Primary Care Unavailable Vellanki, Maryann Referring Unavailable Romar, Frank Primary Care Unavailable Vellanki, Maryann Attending Unavailable Vellanki, Maryann Referring Unavailable Vellanki, Maryann Referring Unavailable Romar, Frank Primary Care Unavailable Vellanki, Maryann Attending Unavailable Romar, Frank Primary Care Unavailable Romar, Frank Attending Unavailable Romar, Frank Referring Unavailable Romar, Frank Primary Care Unavailable Vellanki, Maryann Attending Unavailable Vellanki, Maryann Referring Unavailable Vellanki, Maryann Referring Unavailable Vellanki, Maryann Attending Unavailable Romar, Frank Primary Care Unavailable Romar, Frank Primary Care Unavailable Romar, Frank Attending Unavailable Romar, Frank Primary Care Unavailable SchwigerKeven Attending Unavailable Vellanki, Maryann Attending Unavailable Romar, Frank Primary Care Unavailable Vellanki, Maryann Referring Unavailable ROMAR DO, DR MARIE Attending Unavailable ROMAR DO, DR MARIE Primary Care Unavailable ROMAR DO, DR MARIE Primary Care Unavailable ROMAR DO, DR MARIE Attending Unavailable ROMAR DO, DR MARIE Primary Care Unavailable ROMAR DO, DR MARIE Attending Unavailable ROMAR DO, DR MARIE Primary Care Unavailable ROMAR DO, DR MARIE Attending Unavailable ROMAR DO, DR MARIE Primary Care Unavailable ROMAR DO, DR MARIE Attending Unavailable ROMAR DO, DR MARIE Primary Care Unavailable TINO DO, BIBI Attending Unavailable ROMAR DO, DR MARIE Primary Care Unavailable ROMAR DO, DR MARIE Attending Unavailable ROMAR DO, DR MARIE Attending Unavailable ROMAR DO, DR MARIE Primary Care Unavailable ROMAR DO, DR MARIE Primary Care Unavailable ROMAR DO, DR MARIE Attending Unavailable Allergies Allergy Classification Reported Allergen(s) Allergy Type Date of Onset Reaction(s) Facility (20 sources) Bupivacaine; Translations: [bupivacaine] Drug Allergy 3 NEEDS FOLLOW-UP [facility] Comment on above: rash (20 sources) Ibandronate; Translations: [ibandronate] Drug Allergy 7 [facility] Comment on above: flushed (20 sources) levoFLOXacin; Translations: [levofloxacin] Drug Allergy 7 Swelling [facility] Comment on above: edema (20 sources) Lidocaine; Translations: [lidocaine] Drug Allergy 3 Pruritic disorders (disorder) [facility] (20 sources) Penicillin; Translations: [penicillin] Drug Allergy [facility] Comment on above: rash (20 sources) zoledronic acid; Translations: [zoledronic acid] Drug Allergy 1 Pain in joints [facility] (15 sources) Contrast dye 6; Translations: [iodinated radiocontrast agents] Drug allergy [facility] Comment on above: chest pain (4 sources) Contrast dye 4; Translations: [iodinated radiocontrast agents] Drug allergy [facility] Comment on above: chest pain (20 sources) Ibandronate Drug Allergy 7 Rash [facility] (6 sources) Mannitol Drug Allergy [address] [facility] (20 sources) Penicillins; Translations: [PENICILLINS] Allergy to substance 3 Rash [facility] (7 sources) Gadolinium-MRI Contrast Medium; Translations: [Gadolinium-MRI Contrast Medium] Allergy to substance [address] [facility] (7 sources) water for injection,sterile ; Translations: [water for injection,sterile ] Propensity to adverse reactions [address] [facility] (2 sources) TIBURCIO Allergy to substance [address] [facility] (15 sources) Iodine; Translations: [IODINE] Drug Allergy 7 Other: See Comments [facility] (15 sources) zoledronic acid; Translations: [ZOLEDRONIC TOHZ-[id number]-DLF ER] Drug Allergy 7 Other: See Comments [facility] (15 sources) Tiburcio-1; Translations: [TIBURCIO-1] Drug Allergy 3 Rash, Shortness of Breath, Other: See Comments [facility] (4 sources) Procaine Drug Allergy [address]UP [facility] (1 source) Contrast dye 3; Translations: [iodinated radiocontrast agents] Drug allergy [facility] Comment on above: chest pain (1 source) Bupivacaine Drug Allergy 5 [facility] Repository (1 source) Ibadronate Drug Allergy 5 [facility] Repository (1 source) levoFLOXacin Drug Allergy 5 [facility] Repository (1 source) Lidocaine Drug Allergy 5 [facility] Repository (1 source) Mannitol Drug Allergy [address] [facility] Repository (1 source) Procaine Drug Allergy [address] [facility] Repository (1 source) zoledronic acid Drug Allergy 5 [facility] Repository Medications Current Medications Medication Drug Class(es) Dates Sig (Normalized) Sig (Original) allopurinol 300 mg oral tablet (20 sources) Xanthine Oxidase Inhibitor Start: 10-28-2016 End: 02-03-2025 allopurinol 300 mg oral tablet Dose : 300 mg = 1 tab(s), Oral, qPM, Take with food, # 100 tab(s), 1 Refill(s), Pharmacy: [facility], Gout, 158.2, cm, 07/18/24 12:44:00 EDT, Height, kg, 07/18/24 12:44:00 EDT, Dosing Weight Start Date: 07/18/24 Stop Date: 02/03/25 Status: Ordered Medication Dispense Status: Completed Quantity: 100.0 Unit: tab(s) Total Allowed Fills: 2 Fills Dispensed: 0 Indications: Gout, unspecified; Start: 03-29-2014 End: 08-23-2018 Allopurinol 300 MG tablet Discontinued 100 mg PO DAILY March 29, 2014 1:00am August 23, 2018 2:34pm gout Start: 03-29-2014 End: 08-23-2018 take 100 mg by mouth once daily Allopurinol Discontinued 100 MG PO DAILY March 29, 2014 1:00am August 23, 2018 2:34pm Comment on above: Take 300 mg by mouth once daily. amLODIPine 5 mg oral tablet (17 sources) Dihydropyridine Calcium Channel Philippe Start: 02-29-20 End: 05-23-19 take 1 tablet by mouth once daily Amlodipine 5 mg tablet Active 5 mg PO DAILY 90 February 29, 2020 1:00am atorvastatin 20 mg oral tablet (20 sources) HMG-CoA Reductase Inhibitor Start: 07-28-19 End: 04-16-19 atorvastatin 20 mg oral tablet Dose : 20 mg = 1 tab(s), Oral, qPM, # 100 tab(s), 1 Refill(s), Pharmacy: [facility], Hyperlipidemia, 158.2, cm, 09/28/24 10:31:00 EDT, Height, kg, 09/28/24 10:31:00 EDT, Dosing Weight Start Date: 09/28/24 Stop Date: 04/16/25 Status: Ordered Medication Dispense Status: Completed Quantity: 100.0 Unit: tab(s) Total Allowed Fills: 2 Fills Dispensed: 0 Indications: Hyperlipidemia, unspecified; Start: 06-20-2017 End: 05-08-2020 take 1 tablet by mouth once daily Atorvastatin 80 mg tablet Discontinued 80 mg PO DAILY 90 June 28, 2018 8:41am May 08, 2020 2:18pm CHOLESTEROL azelastine hydrochloride 0.206 mg/actuat metered dose nasal spray (3 sources) Histamine-1 Receptor Antagonist Start: 09-21-2023 End: 03-19-2024 azelastine 205.5 mcg/inh (0.15%) nasal spray 411 mcg Dose = 2 spray(s), Nasal, qDay, PRN as needed for allergy symptoms, # 1 EA, 5 Refill(s), Pharmacy: [facility], 158.5, cm, 09/21/23 11:04:00 EDT, Height, kg, 09/21/23 11:04:00 EDT, Dosing Weight Start Date: 09/21/23 Stop Date: 03/19/24 Status: Ordered Azithromycin 5 Day Dose Pack 250 mg oral tablet (1 source) Start: 01-16-2021 End: 01-21-2021 Azithromycin 5 Day Dose Pack 250 mg oral tablet Take two (2) tablets day 1-then one (1) tablet, Oral, Daily, as directed on package labeling, X 5 day(s), # 6 tab(s), 0 Refill(s), 01/21/21 12:12:00 EST, Pharmacy: [facility], 157.5, cm, 01/16/21 11:28:00 EST, Height, 94.3, kg, ... Start Date: 01/16/21 Stop Date: 01/21/21 Status: Ordered benzonatate 100 mg oral capsule (4 sources) Non-narcotic Antitussive Start: 03-20-2021 take 1 capsule by mouth three times daily as needed benzonatate 100 mg oral capsule TAKE 1 CAPSULE BY MOUTH THREE TIMES DAILY NEEDED do not crush or chew Start Date: 03/20/21 Status: Ordered Start: 01-16-2021 End: 01-23-2021 Tessalon Perles 100 mg oral capsule Dose : 100 mg = 1 cap(s), Oral, TID, PRN Cough, do not crush or chew, X 7 day(s), # 21 cap(s), 0 Refill(s), 01/23/21 12:14:00 EST, Pharmacy: [facility], 157.5, cm, 01/16/21 11:28:00 EST, Height, kg, 01/16/21 11:28:00 EST, Dosing Weight Start Date: 01/16/21 Stop Date: 01/23/21 Status: Ordered calcium carbonate 1500 mg or al tablet (12 sources) Start: 09-21-2023 End: 04-08-2024 calcium (as carbonate) 600 m g oral tablet Dose : 1,200 mg = 2 tab(s), Oral, BID, # 400 tab(s), 1 Refill(s), Pharmacy: [facility], 158.5, cm, 09/21/23 11:04:00 EDT, Height, kg, 09/21/23 11:04:00 EDT, Dosing Weight Start Date: 09/21/23 Stop Date: 04/08/24 Status: Ordered Start: 01-16-2022 End: 04-16-2022 calcium (as carbonate) 600 m g oral tablet Dose : 1,200 mg = 2 tab(s), Oral, BID, # 360 tab(s), 0 Refill(s), Pharmacy: [facility], 157.5, cm, 01/16/22 9:49:00 EST, Height Start Date: 01/16/22 Stop Date: 04/16/22 Status: Ordered Calcium, Magnesium and Zinc oral tablet (5 sources) Start: 08-27-2020 take 1 tablet by mouth once daily Calcium, Magnesium and Zinc oral tablet Dose = 1 tab(s), Oral, qDay Start Date: 08/27/20 Status: Ordered carvedilol 6.25 mg oral tablet (20 sources) alpha-Adrenergic Philippe, beta-Adrenergic Philippe Start: 09-28-2024 End: 12-27-2024 carvedilol 6.25 mg oral tablet Dose : 6.25 mg = 1 tab(s), Oral, BID, # 180 tab(s), 0 Refill(s), Pharmacy: [facility], 158.2, cm, 09/28/24 10:31:00 EDT, Height, kg, 09/28/24 10:31:00 EDT, Dosing Weight Start Date: 09/28/24 Stop Date: 12/27/24 Status: Ordered Medication Dispense Status: Completed Quantity: 180.0 Unit: tab(s) Total Allowed Fills: 1 Fills Dispensed: 0 Start: 10-18-2013 End: 07-21-2017 take 2 tablets by mouth twice daily Carvedilol 6.25 MG tablet Discontinued 12.5 mg PO TWICE A DAY October 18, 2013 12:00am July 21, 2017 11:40am blood pressure Start: 10-18-2013 End: 07-21-2017 take 12.5 mg by mouth twice daily Carvedilol Discontinued 12.5 MG PO TWICE A DAY October 18, 2013 12:00am July 21, 2017 11:40am Start: 06-21-2012 End: 10-16-2024 take 1 tablet by mouth twice daily Carvedilol 12.5 mg tablet Active 12.5 mg PO TWICE A DAY January 18, 2018 1:00am BP Comment on above: Take 1 tablet by karla th twice daily with meals. cholecalciferol 0.025 mg oral tablet (20 sources) Vitamin D Start: 05-09-19 take 1 tablet by mouth once daily Cholecalciferol (Vitamin D3) 25 mcg (1,000 unit) tablet Active 1000 U PO DAILY May 08, 2020 1:00am Start: 01-18-2018 End: 05-08-2020 take 1 tablet by mouth once daily Cholecalciferol (Vitamin D3) 2,000 unit tablet Discontinued 2000 U PO DAILY January 18, 2018 1:00am May 08, 2020 2:21pm SUPPLEMENT Comment on above: Take 1,000 Units by mouth once daily. ciclopirox 80 mg/ml topical solution (3 sources) Start: 10-09-2021 End: 04-24-2024 ciclopirox 8% topical solution Apply 1 lux, Topical, Daily, apply to affected toenails and surrounding area once daily, remove with alcohol every 7 days prior to reapplication, Apply to: toenails, X 48 week(s), # 6.6 mL, 1 Refill(s), Pharmacy: [facility] - [id number], 15... Start Date: 06/22/22 Stop Date: 04/24/24 Status: Ordered clopidogrel 75 mg oral tablet (20 sources) [id number] Platelet Inhibitor Start: 07-27-2022 End: 01-14-2025 clopidogrel 75 mg oral tablet Dose : 75 mg = 1 tab(s), Oral, qDay, # 90 tab(s), 1 Refill(s), Pharmacy: [facility], CVA (cerebrovascular accident), 158.2, cm, 07/18/24 12:44:00 EDT, Height, kg, 07/18/24 12:44:00 EDT, Dosing Weight Start Date: 07/18/24 Stop Date: 01/14/25 Status: Ordered Medication Dispense Status: Completed Quantity: 90.0 Unit: tab(s) Total Allowed Fills: 2 Fills Dispensed: 0 Indications: Cerebral infarction, unspecified; Start: 06-20-2017 End: 06-01-2022 take 1 tablet by mouth once daily Clopidogrel 75 mg tablet Discontinued 75 mg PO DAILY 90 3 June 28, 2018 8:40am May 08, 2020 2:45pm BLOOD THINNER Comment on above: Take 75 mg by mouth once daily. diclofenac sodium 0.01 mg/mg topical gel (20 sources) Nonsteroidal Anti-inflammatory Drug Start: apply 2 g topically four times daily as needed for pain Diclofenac Sodium 1 % gel Active 2 g TOPICAL 4 TIMES DAILY as needed for LE pain May 08, 2020 2:18pm Start: 05-08-2020 apply 2 g topically four times daily Diclofenac Sodium Active 2 GM TOPICAL 4 TIMES DAILY May 08, 2020 2:18pm Start: 02-09-2019 apply 2 doses topica lly once daily diclofenac 1% topical gel 2 = gram(s), Topical, Daily, # 100 gram(s), 0 Refill(s), Gel Start Date: 02/09/19 Status: Ordered Medication Dispense Status: Completed Quantity: 100.0 Unit: g Total Allowed Fills: 1 Fills Dispensed: 0 Start: 02-09-2019 diclofenac 1% topical gel 2 = gram(s), Topical, Daily, # 100 gram(s), 0 Refill(s), Gel Start Date: 02/09/19 Status: Ordered Start: 08-23-2018 End: 05-08-2020 apply 2 g topically once Diclofenac Sodium 1 % gel Discontinued 2 g TOPICAL ONCE August 23, 2018 12:00am May 08, 2020 2:23pm Start: 08-23-2018 End: 05-08-2020 apply 2 g topically once Diclofenac Sodium Discontinu ed 2 GM TOPICAL ONCE August 23, 2018 12:00am May 08, 2020 2:23pm Comment on above: Apply 2 g to affecte d area four times daily as needed. DME [facility] (8 sources) Start: 06-09-2024 DME [facility] See Instructions, Incentive spirometer, Dx: J44.9, B33.8, # 1 EA, 0 Refill(s), Chronic obstructive pulmonary disease (COPD) RSV infection, 89.5 Start Date: 06/09/24 Status: Ordered Medication Dispense Status: Completed Quantity: 1.0 Unit: EA Total Allowed Fills: 1 Fills Dispensed: 0 Indications: Other specified viral diseases; Chronic obstructive pulmonary disease, unspecified; Start: 06-09-2024 DME MISCellane ous See Instructions, Incentive spirometer, Dx: J44.9, B33.8, # 1 EA, 0 Refill(s), Chronic obstructive pulmonary disease (COPD) RSV infection, 89.5 Start Date: 06/09/24 Status: Ordered Quantity: 1.0 Unit: EA Repeat number: 1 Indications: Other specified viral diseases; Chronic obstructive pulmonary disease, unspecified; Start: 06-09-2024 DME MISCellane ous See Instructions, Spacer chamber, Dx: J44.9, # 1 EA, 0 Refill(s), Chronic obstructive lung disease, 89.5 Start Date: 06/09/24 Status: Ordered Medication Dispense Status: Completed Quantity: 1.0 Unit: EA Total Allowed Fills: 1 Fills Dispensed: 0 Indications: Chronic obstructive pulmonary disease, unspecified; Start: 06-09-2024 DME MISCellane ous See Instructions, Spacer chamber, Dx: J44.9, # 1 EA, 0 Refill(s), Chronic obstructive lung disease, 89.5 Start Date: 06/09/24 Status: Ordered Quantity: 1.0 Unit: EA Repeat number: 1 Indications: Chronic obstructive pulmonary disease, unspecified; Start: 07-10-2021 DME [facility]IS[facility]ane ous See Instructions, Bilateral knee high compression hose medium 20-30 Dx: R60.9, # 1 EA, 0 Refill(s), Pharmacy: [facility], Peripheral edema, 157.5, cm, 07/10/21 13:42:00 EDT, Height, 93.7 Start Date: 07/10/21 Status: Ordered fluticasone propionate 0.05 mg/actuat metered dose nasal spray (20 sources) Corticosteroid Start: 07-18-2024 take 1 dose nasal route twice daily as needed for congestion fluticasone 50 mcg/inh NASAL spray Dose = 1 spray(s), Nostril, each, BID, PRN Nasal congestion, in each nostril, # 1 EA, 5 Refill(s), Pharmacy: [facility], Seasonal allergies, 158.2, cm, 07/18/24 12:44:00 EDT, Height, kg, 07/18/24 12:44:00 EDT, Dosing Weight Start Date: 07/18/24 Status: Ordered Medication Dispense Status: Completed Quantity: 1.0 Unit: EA Total Allowed Fills: 6 Fills Dispensed: 0 Indications: Other seasonal allergic rhinitis; Start: 06-22-2022 take 1 dose nasal ro [place] twice daily as needed for congestion fluticasone 50 mcg/inh NASAL spray Dose = 1 spray(s), Nostril, each, BID, PRN Nasal congestion, in each nostril, # 1 EA, 5 Refill(s), Pharmacy: [facility] [id number], 158, cm, 06/12/22 10:35:00 EDT, Height, kg, 06/12/22 10:35:00 EDT, Dosing Weight Start Date: 06/22/22 Status: Ordered Start: 10-09-2021 take 1 dose nasal ro [place] twice daily as needed for congestion fluticasone 50 mcg/inh NASAL spray Dose = 1 spray(s), Nostril, each, BID, PRN Nasal congestion, in each nostril, # 1 EA, 5 Refill(s), Pharmacy: [facility], 157.5, cm, 10/09/21 13:32:00 EDT, Height, kg, 10/09/21 13:32:00 EDT, Dosing Weight Start Date: 10/09/21 Status: Ordered Start: 10-22-2020 take 1 dose nasal ro [place] twice daily as needed for congestion fluticasone 50 mcg/inh NASAL spray Dose = 1 spray(s), Nostril, each, BID, PRN Nasal congestion, in each nostril, # 1 EA, 1 Refill(s), Pharmacy: [facility], 158, cm, 10/22/20 11:25:00 EDT, Height, kg, 10/22/20 11:25:00 EDT, Dosing Weight Start Date: 10/22/20 Status: Ordered Start: 06-18-2017 End: 06-20-2017 Fluticasone Propionate (Flov ent (Sp)) 1 INHALER inhaler Discontinued 1 NMA INHALATION TWICE A DAY June 18, 2017 12:00am June 20, 2017 11:45am asthma management Start: 06-18-2017 End: 06-20-2017 Fluticasone Propionate (Flov ent (Sp)) 1 INHALER inhaler Discontinued 1 PUFF INHALATION TWICE A DAY June 18, 2017 12:00am June 20, 2017 11:45am fluticasone 50 mcg/inh NASAL spray (3 sources) Start: 10-22-2020 take 1 dose nasal route twice daily as needed for congestion fluticasone 50 mcg/inh NASAL spray Dose = 1 spray(s), Nostril, each, BID, PRN Nasal congestion, in each nostril, # 1 EA, 1 Refill(s), Pharmacy: [facility], 158, cm, 10/22/20 11:25:00 EDT, Height, kg, 10/22/20 11:25:00 EDT, Dosing Weight Start Date: 10/22/20 Status: Ordered folic acid 1 mg oral tablet (5 sources) Start: 01-18-2024 folic acid 1 m g oral tablet Dose : 2 mg = 2 tab(s), Oral, qDay, # 30 tab(s), 0 Refill(s) Start Date: 01/18/24 Status: Ordered Medication Dispense Status: Completed Quantity: 30.0 Unit: tab(s) Total Allowed Fills: 1 Fills Dispensed: 0 furosemide 40 mg oral tablet (20 sources) Loop Diuretic Start: 07-21-2017 End: 03-27-2025 furosemide 40 mg oral tablet Dose : 40 mg = 1 tab(s), Oral, qDay, # 90 tab(s), 1 Refill(s), Pharmacy: [facility], Congestive heart failure (CHF), 158.2, cm, 09/28/24 10:31:00 EDT, Height, kg, 09/28/24 10:31:00 EDT, Dosing Weight Start Date: 09/28/24 Stop Date: 03/27/25 Status: Ordered Medication Dispense Status: Completed Quantity: 90.0 Unit: tab(s) Total Allowed Fills: 2 Fills Dispensed: 0 Indications: Heart failure, unspecified; Start: 10-18-2013 End: 06-20-2017 take 1 tablet by mouth once daily Furosemide 40 MG tablet Discontinued 80 mg PO DAILY October 18, 2013 12:00am June 20, 2017 11:46am water pill Start: 10-18-2013 End: 06-20-2017 take 2 tablets by mouth once daily Furosemide 40 MG tablet Discontinued 80 mg PO DAILY October 18, 2013 12:00am June 20, 2017 11:46am Start: 10-18-2013 End: 06-20-2017 take 80 mg by mouth once daily Furosemide Discontinued 80 MG PO DAILY October 18, 2013 12:00am June 20, 2017 11:46am furosemide 40 mg tablet Take 20 mg by mouth once daily. Active Comment on above: Take 20 mg by mouth once daily. guaiFENesin 1200 mg oral tablet (1 source) Start: End: take 1 tablet by mouth once daily guaiFENesin 1200 mg oral tablet, extended release Dose : 1,200 mg = 1 tab(s), Oral, q12h, PRN Cough and congestion, not to exceed 2.4 grams/day. Take with plenty of water. Do not take any other mucinex or guaifenesin containing products while on this medication., X 14 day(s), # 28 tab(s), 0 Refill(s)... Start Date: 01/16/21 Stop Date: 01/30/21 Status: Ordered hydrocortisone 25 mg/ml topical cream (20 sources) Corticosteroid Start: 018 Hydrocortisone 1 APPLIC cream Active 1 APPLICATIO TOPICAL DAILY as needed for Itching June 18, 2017 12:00am Start: 06-18-2017 Hydrocortisone Active 1 APPLICATIO TOPICAL DAILY June 18, 2017 12:00am hydrocortisone v alerate (WESTCORT) 0.2 % cream Apply 1 application to affected area once daily as needed. Active Comment on above: Apply 1 application to affected area once daily as needed. losartan potassium 25 mg oral tablet (20 sources) Angiotensin 2 Receptor Philippe Start: 07-18-2024 End: 02-03-2025 losartan 25 mg oral tablet Dose : 25 mg = 1 tab(s), Oral, qPM, # 100 tab(s), 1 Refill(s), Pharmacy: [facility], Hypertension, 158.2, cm, 07/18/24 12:44:00 EDT, Height, kg, 07/18/24 12:44:00 EDT, Dosing Weight Start Date: 07/18/24 Stop Date: 02/03/25 Status: Ordered Medication Dispense Status: Completed Quantity: 100.0 Unit: tab(s) Total Allowed Fills: 2 Fills Dispensed: 0 Indications: Essential (primary) hypertension; Start: 09-21-2023 End: 04-08-2024 losartan 25 mg oral tablet D ose : 25 mg = 1 tab(s), Oral, qPM, # 100 tab(s), 1 Refill(s), Pharmacy: [facility], 158.5, cm, 09/21/23 11:04:00 EDT, Height, kg, 09/21/23 11:04:00 EDT, Dosing Weight Start Date: 09/21/23 Stop Date: 04/08/24 Status: Ordered Start: 08-14-2022 End: 05-23-2023 losartan 25 mg oral tablet D ose : 25 mg = 1 tab(s), Oral, qPM, # 90 tab(s), 1 Refill(s), Pharmacy: [facility], 158.5, cm, 11/24/22 10:15:00 EDT, Height, kg, 11/24/22 10:15:00 EDT, Dosing Weight Start Date: 11/24/22 Stop Date: 05/23/23 Status: Ordered Start: 03-06-2021 End: 09-02-2021 losartan 25 mg oral tablet D ose : 25 mg = 1 tab(s), Oral, qDay, # 90 tab(s), 1 Refill(s), Pharmacy: [facility], 157.8, cm, 03/06/21 13:03:00 EST, Height, kg, 03/06/21 13:03:00 EST, Dosing Weight Start Date: 03/06/21 Stop Date: 09/02/21 Status: Ordered Start: 09-19-2019 End: 11-14-2021 take 1 tablet by mouth once daily Losartan 100 mg tablet Discontinued 100 mg PO DAILY 90 3 March 06, 2020 10:53am November 14, 2021 11:54am Start: 09-27-2017 End: 10-23-2019 take 1 tablet by mouth at bedtime Losartan 50 mg tablet Discontinued 50 mg PO AT BEDTIME 90 August 24, 2019 8:02am September 19, 2019 1:17pm BP Start: 06-18-2017 End: 06-20-2017 take 1 tablet by mouth once daily Losartan 25 MG tablet Discontinued 25 mg PO DAILY June 18, 2017 12:00am June 20, 2017 11:46am blood pressure Comment on above: Take 100 mg by mouth once daily. melatonin 3 mg oral tablet (20 sources) Start: 06-09-2024 End: 12-26-2024 melatonin 3 mg oral tablet Dose : 3 mg = 1 tab(s), Oral, qHS, PRN as needed for insomnia, take 1 hour prior to desired bedtime, # 100 tab(s), 1 Refill(s), Pharmacy: [facility], 158.2, cm, 06/09/24 11:14:00 EDT, Height, kg, 06/09/24 11:14:00 EDT, Dosing Weight Start Date: 06/09/24 Stop Date: 12/26/24 Status: Ordered Medication Dispense Status: Completed Quantity: 100.0 Unit: tab(s) Total Allowed Fills: 2 Fills Dispensed: 0 Start: 12-01-2022 take 5 mg by mouth at bedtime Melatonin 10 mg tablet Active 5 mg PO AT BEDTIME December 01, 2022 3:28pm Start: 07-26-2022 End: 12-01-2022 take 1 tablet by mouth at bedtime Melatonin 10 mg Tablet Discontinued 10 mg PO AT BEDTIME July 26, 2022 12:00am December 01, 2022 3:28pm Start: 03-06-2021 End: 04-08-2024 take 1 tablet by mouth once daily at bedtime melatonin 3 mg tablet Take 3 mg by mouth daily at bedtime. 03/06/2021 Active Start: 08-27-2020 End: 11-25-2020 melatonin 3 mg oral tablet D ose : 3 mg = 1 tab(s), Oral, qHS, PRN as needed for insomnia, take 1 hour prior to desired bedtime, # 90 tab(s), 0 Refill(s), Pharmacy: [facility], 150.7, cm, 08/27/20 11:15:00 EDT, Height, kg, 08/27/20 11:15:00 EDT, Dosing Weight Start Date: 08/27/20 Stop Date: 11/25/20 Status: Ordered Comment on above: 3 mg daily at bedtim e. Take 3 mg by mouth d aily at bedtime. methotrexate 2.5 mg oral tablet (5 sources) Folate Analog Metabolic Inhibitor Start: take 7 tablets by mouth every week methotrexate 2.5 mg oral tablet Take 7 Tablet(s) Oral once a week Start Date: 04/18/24 Status: Ordered Medication Dispense Status: Completed Total Allowed Fills: 1 Fills Dispensed: 0 Start: 01-18-2024 methotrexate 2 .5 mg oral tablet Dose : 10 mg = 4 tab(s), Oral, qWeek, rheum, # 24 tab(s), 0 Refill(s) Start Date: 01/18/24 Status: Ordered 120 actuat mometasone furoate 0.1 mg/actuat metered dose inhaler (20 sources) Corticosteroid Start: 05-08-2020 Mometasone (As manex Hfa) 100 mcg/actuation HFA aerosol inhaler Active 2 NMA INHALATION DAILY as needed for SOB May 08, 2020 1:00am Start: 05-08-2020 take 1 puff(s) by in halation once daily Mometasone (Asmanex Hfa) 100 mcg/actuation HFA aerosol inhaler Active 2 PUFF INHALATION DAILY May 08, 2020 1:00am Start: 05-30-2017 End: 06-25-2023 take 2 puff(s) by inhalation once daily ASMANEX HFA 100 mcg/actuation HFAA Inhale 2 Puffs as instructed once daily. 0 05/30/2017 06/25/2023 Discontinued Start: 12-20-2014 End: 09-19-2019 Mometasone 220 MCG inhaler Discontinued 2 NMA INHALATION DAILY December 20, 2014 12:00am September 19, 2019 1:18pm asthma Start: 12-20-2014 End: 09-19-2019 take 1 puff(s) by inhalation once daily Mometasone Discontinued 2 PUFF INHALATION DAILY December 20, 2014 12:00am September 19, 2019 1:18pm Comment on above: Inhale 2 Puffs as in structed once daily. Multivitamin preparation (3 sources) Start: take 1 tablet by mouth once daily Multivitamin Dose = 1 tab(s), Oral, Daily, 0 Refill(s) Start Date: 06/09/24 Status: Ordered Medication Dispense Status: Completed Total Allowed Fills: 1 Fills Dispensed: 0 Start: 06-09-2024 take 1 tablet by karla th once daily Multivitamin Dose = 1 tab(s), Oral, Daily, 0 Refill(s) Start Date: 06/09/24 Status: Ordered Repeat number: 1 mupirocin 0.02 mg/mg topical ointment (4 sources) RNA Synthetase Inhibitor Antibacterial Start: 02-17-2021 End: 02-17-2022 mupirocin 2% topical ointment Apply 1 lux, Topical, TID, # 22 gram(s), 0 Refill(s), Pharmacy: [facility], Ointment, 158.7, cm, 02/17/21 10:49:00 EST, Height, 95.5, kg, 02/17/21 10:49:00 EST, Dosing Weight Start Date: 02/17/21 Stop Date: 02/17/22 Status: Ordered Start: 02-17-2021 End: 02-17-2022 mupirocin 2% topical ointmen t Apply 1 lux, Topical, TID, # 22 gram(s), 0 Refill(s), Pharmacy: [facility], Ointment, 158.7, cm, 02/17/21 10:49:00 EST, Height, 95.5, kg, 02/17/21 10:49:00 EST, Dosing Weight Start Date: 02/17/21 Stop Date: 02/17/22 Status: Ordered nitroglycerin 0.4 mg sublingual tablet (20 sources) Nitrate Vasodilator Start: 08-14-2022 nitroglyce rin 0.4 mg sublingual tablet 0.4 mg Dose = 1 tab(s), Sublingual, q5min, PRN as needed for chest pain, not to exceed 3 doses/15 min--if pain persists, seek medical attention, # 25 tab(s), 0 Refill(s) Start Date: 08/14/22 Status: Ordered Medication Dispense Status: Completed Quantity: 25.0 Unit: tab(s) Total Allowed Fills: 1 Fills Dispensed: 0 Start: 05-08-2020 End: 03-28-2021 Nitroglycerin 0.4 mg tablet, sublingual Active 0.4 mg SL every 5 to 15 minutes as needed for chest pain 30 05March 28, 2021 4:16pm do not exceed 3 doses per episode Start: 05-08-2020 End: 03-28-2021 Nitroglycerin Active 0.4 MG SL every 5 to 15 minutes March 28, 2021 4:16pm do not exceed 3 doses per episode Start: 05-19-2012 nitroglycerin sublingual 0.4 mg SL tablet Dissolve 1 tablet under the tongue as needed. FOR CHEST PAIN. IF NO RELIEF CALL 911 1 Bottle of 25 0 05/19/2012 Active Comment on above: Dissolve 1 tablet un thea the tongue as needed. FOR CHEST PAIN. IF NO RELIEF CALL 911 nitroglycerin 0.4 mg sublingual tablet (2 sources) Start: 05-08-19 nitroglycerin 0.4 mg sublingual tablet 0.4 mg Dose = 1 tab(s), Sublingual, q5min, PRN as needed for chest pain, # 100 tab(s), 0 Refill(s) Start Date: 05/07/20 Status: Ordered nystatin 100,000 units/g topical powder (3 sources) Start: 08-28-19 nystatin 100,000 units/g topical powder Apply 1 lux, Topical, TID, apply to the affected area 2 to 3 times daily until healing is complete., # 60 gram(s), 0 Refill(s), Powder, 96.5 Start Date: 08/27/20 Status: Ordered omeprazole 40 mg delayed release oral capsule (20 sources) Proton Pump Inhibitor Start: 10-10-19 End: 05-23-19 take 1 capsule by mouth once daily Omeprazole 40 mg capsule,delayed release(DR/EC) Active 40 mg PO DAILY November 14, 2021 12:00am gerd Comment on above: 40 mg once daily. Take 40 mg by mouth once daily. oxybutynin chloride 5 mg oral tablet (20 sources) Cholinergic Muscarinic Antagonist Start: 07-19-19 End: 01-15-20 oxybutynin 5 mg oral tablet Dose : 5 mg = 1 tab(s), Oral, qDay, # 90 tab(s), 1 Refill(s), Pharmacy: [facility], Urge incontinence of urine Stress incontinence, 158.2, cm, 07/18/24 12:44:00 EDT, Height, kg, 07/18/24 12:44:00 EDT, Dosing Weight Start Date: 07/18/24 Stop Date: 01/14/25 Status: Ordered Medication Dispense Status: Completed Quantity: 90.0 Unit: tab(s) Total Allowed Fills: 2 Fills Dispensed: 0 Indications: Urge incontinence; Stress incontinence (female) (male); Start: 11-14-2021 Oxybutynin Chl oride 5 mg tablet Active 1 - 2 NMA PO DAILY November 14, 2021 12:00am bladder spasms Start: 11-14-2021 Oxybutynin Chl oride Active TAB PO November 14, 2021 12:00am Start: 11-14-2021 Oxybutynin Chl oride Active TAB PO November 13, 2021 11:00pm Start: 12-11-2020 End: 07-16-2024 take 1 tablet by mouth twice daily oxybutynin (DITROPAN) 5 mg tablet Take 5 mg by mouth twice daily. 12/11/2020 Active Comment on above: Take 5 mg by mouth t wice daily. pantoprazole 40 mg delayed release oral tablet (6 sources) Proton Pump Inhibitor Start: 07-18-2024 End: 10-26-2024 pantoprazole 40 mg oral enteric coated tablet Dose : 40 mg = 1 tab(s), Oral, qDayAC, # 100 tab(s), 0 Refill(s), Pharmacy: [facility], GERD (gastroesophageal reflux disease), 158.2, cm, 07/18/24 12:44:00 EDT, Height, kg, 07/18/24 12:44:00 EDT, Dosing Weight Start Date: 07/18/24 Stop Date: 10/26/24 Status: Ordered Medication Dispense Status: Completed Quantity: 100.0 Unit: tab(s) Total Allowed Fills: 1 Fills Dispensed: 0 Indications: Gastro-esophageal reflux disease without esophagitis; Start: 09-22-2023 End: 04-09-2024 pantoprazole 40 mg oral ente joceline coated tablet Dose : 40 mg = 1 tab(s), Oral, qDayAC, # 100 tab(s), 1 Refill(s), Pharmacy: [facility], 158.5, cm, 09/21/23 11:04:00 EDT, Height, kg, 09/21/23 11:04:00 EDT, Dosing Weight Start Date: 09/22/23 Stop Date: 04/09/24 Status: Ordered predniSONE 10 mg oral tablet (8 sources) Start: 01-18-2024 predniSONE 10 mg oral tablet Dose : 10 mg = 1 tab(s), Oral, qDay, # 10 tab(s), 0 Refill(s) Start Date: 01/18/24 Status: Ordered Medication Dispense Status: Completed Quantity: 10.0 Unit: tab(s) Total Allowed Fills: 1 Fills Dispensed: 0 Start: 07-10-2021 End: 07-18-2021 prednisone 10mg tab (TAPER) Taper 40-30-20-10 x 2 days each dose, Oral, qDay, Take with food/meal. Do not take any NSAIDs while on this medication., # 20 tab(s), 0 Refill(s), Pharmacy: [facility], 157.5, cm, 07/10/21 13:42:00 EDT, Height Start Date: 07/10/21 Stop Date: 07/18/21 Status: Ordered Start: 01-16-2021 End: 01-24-2021 prednisone 10mg tab (TAPER) Taper 40-30-20-10 x 2 days each dose, Oral, qDay, Take with food/meal. Do not take NSAIDs while on this medication., # 20 tab(s), 0 Refill(s), Pharmacy: [facility], 157.5, cm, 01/16/21 11:28:00 EST, Height, kg, 01/16/21 11:28:00 EST, D... Start Date: 01/16/21 Stop Date: 01/24/21 Status: Ordered Start: 01-16-2021 take 1 tablet by karla th once daily predniSONE 50 mg oral tablet Take 1 tablet by mouth once daily for 5 days. Start Date: 01/16/21 Status: Ordered sertraline 50 mg oral tablet (17 sources) Serotonin Reuptake Inhibitor Start: 07-18-2024 End: 04-16-2025 sertraline 50 mg oral tablet Dose : 50 mg = 1 tab(s), Oral, qDay, # 100 tab(s), 1 Refill(s), Pharmacy: [facility], Anxiety, 158.2, cm, 09/28/24 10:31:00 EDT, Height, kg, 09/28/24 10:31:00 EDT, Dosing Weight Start Date: 09/28/24 Stop Date: 04/16/25 Status: Ordered Medication Dispense Status: Completed Quantity: 100.0 Unit: tab(s) Total Allowed Fills: 2 Fills Dispensed: 0 Indications: Anxiety disorder, unspecified; Start: 09-21-2023 End: 04-08-2024 sertraline 50 mg oral tablet Dose : 50 mg = 1 tab(s), Oral, qDay, # 100 tab(s), 1 Refill(s), Pharmacy: [facility], 158.5, cm, 09/21/23 11:04:00 EDT, Height, kg, 09/21/23 11:04:00 EDT, Dosing Weight Start Date: 09/21/23 Stop Date: 04/08/24 Status: Ordered Start: 04-23-2023 End: 07-22-2023 sertraline 50 mg oral tablet Dose : 50 mg = 1 tab(s), Oral, qDay, # 90 tab(s), 0 Refill(s), Pharmacy: [facility], 158.5, cm, 04/23/23 11:46:00 EST, Height, kg, 04/23/23 11:46:00 EST, Dosing Weight Start Date: 04/23/23 Stop Date: 07/22/23 Status: Ordered Start: 11-24-2022 End: 05-23-2023 take 1 tablet by mouth once daily Sertraline 25 mg tablet Active 25 mg PO DAILY December 01, 2022 12:00am Start: 08-14-2022 End: 10-13-2022 sertraline 25 mg oral tablet Dose : 25 mg = 1 tab(s), Oral, qDay, # 60 tab(s), 0 Refill(s), Pharmacy: [facility], 157.5, cm, 08/14/22 10:37:00 EDT, Height Start Date: 08/14/22 Stop Date: 10/13/22 Status: Ordered sulfamethoxazole 800 mg / trimethoprim 160 mg oral tablet (2 sources) Dihydrofolate Reductase Inhibitor Antibacterial, Sulfonamide Antimicrobial Start: 01-11-2023 End: 01-18-2023 take 1 tablet by mouth twice daily Bactrim DS 800 mg-160 mg oral tablet Dose = 1 tab(s), Oral, BID, X 7 day(s), # 14 tab(s), 0 Refill(s), Pharmacy: [facility], 158.5, cm, 01/11/23 14:07:00 EST, Height, 92.9, kg, 01/11/23 14:07:00 EST, Dosing Weight Start Date: 01/11/23 Stop Date: 01/18/23 Status: Ordered Start: 04-29-2021 End: 05-09-2021 take 1 tablet by mouth every twelve hours sulfamethoxazole-trimethoprim 800 mg-160 mg oral tablet Dose = 1 tab(s), Oral, q12h, drink plenty of fluids, X 10 day(s), # 20 tab(s), 0 Refill(s), Pharmacy: [facility], 157.5, cm, 04/29/21 14:39:00 EST, Height, 93.8, kg, 04/29/21 14:39:00 EST, Dosing Weight Start Date: 04/29/21 Stop Date: 05/09/21 Status: Ordered traMADol hydrochloride 50 mg oral tablet (20 sources) Opioid Agonist Start: 05-08-2020 End: 07-04-2024 take 1 tablet by mouth every eight hours as needed for pain Tramadol 50 mg tablet Active 50 mg PO Q8H as needed for chronic pain 12 0 July 04, 2024 8:21pm Start: 12-29-2018 take 1 tablet by karla th three times daily as needed for pain traMADol 50 mg oral tablet TAKE 1 TABLET BY MOUTH THREE TIMES DAILY NEEDED FOR PAIN Start Date: 12/29/18 Status: Ordered Start: 08-23-2018 End: 05-08-2020 take 1 tablet by mouth twice daily as needed for pain traMADol 50 mg oral tablet TAKE 1 TABLET BY MOUTH TWICE DAILY NEEDED FOR PAIN Start Date: 12/29/18 Status: Ordered Medication Dispense Status: Completed Total Allowed Fills: 1 Fills Dispensed: 0 Start: 08-23-2018 End: 01-31-2019 Tramadol 50 mg tablet Discon tinued PO 75 0 August 23, 2018 12:00am January 31, 2019 3:40pm Start: 10-05-2017 End: 01-31-2019 take 1 tablet by mouth every eight hours as needed traMADol (ULTRAM) 50 mg tablet Take 50 mg by mouth every 8 hours as needed. 0 10/05/2017 Active Start: 10-18-2013 End: 03-08-2018 take 1 tablet by mouth three times daily as needed for pain Tramadol 50 MG tablet Discontinued 50 mg PO 3 TIMES DAILY NEEDED as needed for Pain October 18, 2013 12:00am March 08, 2018 1:13pm Comment on above: Take 50 mg by mouth every 8 hours as needed. triamcinolone acetonide 1 mg/ml topical cream (2 sources) Corticosteroid Start: 07-10-2021 triamcinolone 0.1% topical cream Apply 1 lux, Topical, BID, # 80 gram(s), 0 Refill(s), Cream, 95.1 Start Date: 07/10/21 Status: Ordered vitamin B12 (20 sources) Vitamin B12 Start: 08-14-2022 Vitamin B12 0 Refill(s) Start Date: 08/14/22 Status: Ordered Medication Dispense Status: Completed Total Allowed Fills: 1 Fills Dispensed: 0 Start: 08-14-2022 Vitamin B12 0 Refill(s) Start Date: 08/14/22 Status: Ordered Repeat number: 1 Start: 08-14-2022 Vitamin B12 0 Refill(s) Start Date: 08/14/22 Status: Ordered Start: 05-08-2020 take 1 tablet by karla th once daily Cyanocobalamin (Vitamin B-12) (Vitamin B-12) 100 mcg tablet Active 100 ug PO DAILY May 08, 2020 1:00am Start: 12-29-2018 Vitamin B12 0 Refill(s) Start Date: 12/29/18 Status: Ordered Start: 06-18-2017 End: 05-08-2020 take 1 tablet by mouth once daily Cyanocobalamin (Vitamin B-12) 100 MCG tablet Discontinued 100 ug PO DAILY June 18, 2017 12:00am May 08, 2020 2:21pm supplement Start: 06-18-2017 End: 05-08-2020 take 1 tablet by mouth once daily Cyanocobalamin (Vitamin B-12) 100 MCG tablet Discontinued 100 ug PO DAILY June 18, 2017 12:00am May 08, 2020 2:21pm Start: 06-18-2017 End: 05-08-2020 take 100 ug by mouth once daily Cyanocobalamin (Vitamin B-12) Discontinued 100 MCG PO DAILY June 17, 2017 11:00pm May 08, 2020 1:21pm Start: 06-18-2017 End: 05-08-2020 take 100 ug by mouth once daily Cyanocobalamin (Vitamin B-12) Discontinued 100 MCG PO DAILY June 18, 2017 12:00am May 08, 2020 2:21pm Comment on above: Take 100 mcg by mout h once daily. Vitamin D3 125 mcg (5000 intl units) oral capsule (19 sources) Start: 07-18-2024 End: 02-03-2025 take 1 capsule by mouth once, then take 1 capsule by mouth once daily at mealtime Vitamin D3 125 mcg (5000 intl units) oral capsule Dose : 125 mcg = 1 cap(s), Oral, qDay, with food, # 100 cap(s), 1 Refill(s), Pharmacy: [facility], Vitamin D deficiency, 158.2, cm, 07/18/24 12:44:00 EDT, Height, kg, 07/18/24 12:44:00 EDT, Dosing Weight Start Date: 07/18/24 Stop Date: 02/03/25 Status: Ordered Medication Dispense Status: Completed Quantity: 100.0 Unit: cap(s) Total Allowed Fills: 2 Fills Dispensed: 0 Indications: Vitamin D deficiency, unspecified; Start: 07-18-2024 End: 02-03-2025 take 1 capsule by mouth once, then take 1 capsule by mouth once daily at mealtime Vitamin D3 125 mcg (5000 intl units) oral capsule Dose : 125 mcg = 1 cap(s), Oral, qDay, with food, # 100 cap(s), 1 Refill(s), Pharmacy: [facility], Vitamin D deficiency, 158.2, cm, 07/18/24 12:44:00 EDT, Height, kg, 07/18/24 12:44:00 EDT, Dosing Weight Start Date: 07/18/24 Stop Date: 02/03/25 Status: Ordered Quantity: 100.0 Unit: cap(s) Repeat number: 2 Indications: Vitamin D deficiency, unspecified; Start: 01-18-2024 End: 08-05-2024 Vitamin D3 125 mcg (5000 int l units) oral capsule Dose : 125 mcg = 1 cap(s), Oral, qDay, with food, # 100 cap(s), 1 Refill(s), Pharmacy: [facility], 158.5, cm, 01/18/24 13:21:00 EST, Height, kg, 01/18/24 13:13:00 EST, Dosing Weight Start Date: 01/18/24 Stop Date: 08/05/24 Status: Ordered Start: 09-21-2023 End: 04-08-2024 Vitamin D3 125 mcg (5000 int l units) oral capsule Dose : 125 mcg = 1 cap(s), Oral, qDay, with food, # 100 cap(s), 1 Refill(s), Pharmacy: [facility], 158.5, cm, 09/21/23 11:04:00 EDT, Height, kg, 09/21/23 11:04:00 EDT, Dosing Weight Start Date: 09/21/23 Stop Date: 04/08/24 Status: Ordered Start: 11-24-2022 End: 05-23-2023 Vitamin D3 125 mcg (5000 int l units) oral capsule Dose : 125 mcg = 1 cap(s), Oral, qDay, with food, # 90 cap(s), 1 Refill(s), Pharmacy: [facility], 158.5, cm, 11/24/22 10:15:00 EDT, Height, kg, 11/24/22 10:15:00 EDT, Dosing Weight Start Date: 11/24/22 Stop Date: 05/23/23 Status: Ordered Start: 06-15-2022 End: 12-12-2022 Vitamin D3 125 mcg (5000 int l units) oral capsule Dose : 125 mcg = 1 cap(s), Oral, qDay, with food, # 90 cap(s), 1 Refill(s), Pharmacy: [place] [facility] [address], 158, cm, 06/12/22 10:35:00 EDT, Height, kg, 06/12/22 10:35:00 EDT, Dosing Weight Start Date: 06/15/22 Stop Date: 12/12/22 Status: Ordered Start: 12-25-2021 End: 06-23-2022 Vitamin D3 125 mcg (5000 int l units) oral capsule Dose : 125 mcg = 1 cap(s), Oral, qDay, with food, # 90 cap(s), 1 Refill(s), Pharmacy: [facility], 157.5, cm, 10/09/21 13:32:00 EDT, Height, kg, 10/09/21 13:32:00 EDT, Dosing Weight Start Date: 12/25/21 Stop Date: 06/23/22 Status: Ordered Start: 07-10-2021 End: 01-06-2022 Vitamin D3 125 mcg (5000 int l units) oral capsule Dose : 125 mcg = 1 cap(s), Oral, qDay, with food, # 90 cap(s), 1 Refill(s), Pharmacy: [facility], 157.5, cm, 07/10/21 13:42:00 EDT, Height, kg, 07/10/21 13:42:00 EDT, Dosing Weight Start Date: 07/10/21 Stop Date: 01/06/22 Status: Ordered Start: 03-06-2021 End: 09-02-2021 Vitamin D3 125 mcg (5000 int l units) oral capsule Dose : 125 mcg = 1 cap(s), Oral, qDay, with food, # 90 cap(s), 1 Refill(s), Pharmacy: [facility], 157.8, cm, 03/06/21 13:03:00 EST, Height, kg, 03/06/21 13:03:00 EST, Dosing Weight Start Date: 03/06/21 Stop Date: 09/02/21 Status: Ordered Start: 10-22-2020 End: 01-20-2021 Vitamin D3 125 mcg (5000 int l units) oral capsule Dose : 125 mcg = 1 cap(s), Oral, qDay, with food, # 90 cap(s), 0 Refill(s), Pharmacy: [facility], 158, cm, 10/22/20 11:25:00 EDT, Height, kg, 10/22/20 11:25:00 EDT, Dosing Weight Start Date: 10/22/20 Stop Date: 01/20/21 Status: Ordered Completed/Discontinued Medications Medication Drug Class(es) Dates Sig (Normalized) Sig (Original) acetaminophen 500 mg oral tablet (12 sources) Start: 03-08-2018 End: 11-14-2021 take 2 tablets by mouth every eight hours Acetaminophen 500 MG tablet Discontinued 1000 mg PO EVERY 8 HOURS 90 0 March 08, 2018 1:00am November 14, 2021 11:50am Start: 03-08-2018 End: 11-14-2021 take 1000 mg by mouth every eight hours Acetaminophen Discontinued 1000 MG PO EVERY 8 HOURS 90 March 08, 2018 1:00am November 14, 2021 11:50am Start: 06-18-2017 End: 03-08-2018 take 2 tablets by mouth every four hours as needed for pain Acetaminophen 325 MG tablet Discontinued 650 mg PO EVERY 4 HOURS NEEDED as needed for Pain June 18, 2017 12:00am March 08, 2018 1:13pm Start: 06-18-2017 End: 03-08-2018 take 650 mg by mouth every four hours as needed Acetaminophen Discontinued 650 MG PO EVERY 4 HOURS NEEDED June 18, 2017 12:00am March 08, 2018 1:13pm Albuterol (20 sources) beta2-Adrenergic Agonist Start: 11-24-2022 End: 05-23-2023 take 2 puff(s) by inhalation every four hours as needed for wheezing Ventolin HFA MDI (90 mcg/inh) inhalation aerosol 2 puff(s), Inhalation, q4h, PRN Shortness of breath or wheezing, use with spacer chamber, # 1 EA, 5 Refill(s), Pharmacy: [facility], Asthma Bronchitis, 158.5, cm, 11/24/22 10:15:00 EDT, Height, kg, 11/24/22 10:15:00 EDT, Dosing Weight Start Date: 11/24/22 Stop Date: 05/23/23 Status: Ordered Medication Dispense Status: Completed Quantity: 1.0 Unit: EA Total Allowed Fills: 6 Fills Dispensed: 0 Indications: Unspecified asthma, uncomplicated; Bronchitis, not specified as acute or chronic; Start: 11-24-2022 End: 05-23-2023 take 2 puff(s) by inhalation every four hours as needed for wheezing Ventolin HFA MDI (90 mcg/inh) inhalation aerosol 2 puff(s), Inhalation, q4h, PRN Shortness of breath or wheezing, use with spacer chamber, # 1 EA, 5 Refill(s), Pharmacy: [facility], Asthma Bronchitis, 158.5, cm, 11/24/22 10:15:00 EDT, Height, kg, 11/24/22 10:15:00 EDT, Dosing Weight Start Date: 11/24/22 Stop Date: 05/23/23 Status: Ordered Quantity: 1.0 Unit: EA Repeat number: 6 Indications: Unspecified asthma, uncomplicated; Bronchitis, not specified as acute or chronic; Start: 11-24-2022 End: 05-23-2023 take 2 puff(s) by inhalation every four hours as needed for wheezing Ventolin HFA MDI (90 mcg/inh) inhalation aerosol 2 puff(s), Inhalation, q4h, PRN Shortness of breath or wheezing, use with spacer chamber, # 1 EA, 5 Refill(s), Pharmacy: [facility], Asthma Bronchitis, 158.5, cm, 11/24/22 10:15:00 EDT, Height, kg, 11/24/22 10:15:00 EDT, Dosing Weight Start Date: 11/24/22 Stop Date: 05/23/23 Status: Ordered Start: 06-22-2022 End: 12-19-2022 take 2 puff(s) by inhalation every four hours as needed for wheezing Ventolin HFA MDI (90 mcg/inh) inhalation aerosol 2 puff(s), Inhalation, q4h, PRN PRN Shortness of breath or wheezing, use with spacer chamber, # 1 EA, 5 Refill(s), Pharmacy: [place] [id number], Asthma Bronchitis, 158, cm, 06/12/22 10:35:00 EDT, Height, kg, 06/12/22 10:35:00 EDT, Do... Start Date: 06/22/22 Stop Date: 12/19/22 Status: Ordered Start: 01-11-2021 take 2-4 puff(s) by inhalation every two hours as needed for wheezing albuterol HFA (PROVENTIL HFA, VENTOLIN HFA) 90 mcg/actuation inhaler Inhale 2-4 Puffs as instructed every 2 hours as needed for wheezing/shortness of breath. 8 g 01/11/2021 Active Start: 12-29-2018 take 2 puff(s) by in halation four times daily as needed for wheezing Ventolin HFA MDI (90 mcg/inh) inhalation aerosol 2 puff(s), Inhalation, QID, PRN as needed for wheezing, # 8 gram(s), 0 Refill(s), Pharmacy: [facility], Asthma Bronchitis Start Date: 12/29/18 Status: Ordered Start: 07-21-2017 Albuterol Sulf ate (Ventolin Hfa) 90 mcg/actuation HFA aerosol inhaler Active 2 NMA INHALATION EVERY 6 HOURS as needed for Asthma July 21, 2017 12:00am Start: 07-21-2017 take 1 puff(s) by in halation every six hours Albuterol Sulfate (Ventolin Hfa) 90 mcg/actuation HFA aerosol inhaler Active 2 PUFF INHALATION EVERY 6 HOURS July 21, 2017 12:00am End: 11-26-2021 take 2 puff(s) by inhalation every six hours as needed albuterol HFA (PROVENTIL HFA, VENTOLIN HFA) 90 mcg/actuation inhaler Inhale 2 Puffs as instructed every 6 hours as needed. 0 11/26/2021 Discontinued Comment on above: Inhale 2-4 Puffs as instructed every 2 hours as needed for wheezing/shortness of breath. Inhale 2 Puffs as in structed every 6 hours as needed. anastrozole 1 mg oral tablet (15 sources) Aromatase Inhibitor Start: 018 End: take 1 tablet by mouth once daily anastrozole (ARIMIDEX) 1 mg tablet Take 1 tablet by mouth once daily. 90 tablet 3 04/21/2021 06/01/2022 Discontinued Comment on above: Take 1 tablet by karla th once daily. aspirin 81 mg chewable tablet (19 sources) Platelet Aggregation Inhibitor, Nonsteroidal Anti-inflammatory Drug Start: End: take 1 tablet by mouth at breakfast Aspirin 81 mg Tablet,Chewable Discontinued 81 mg PO WITH BREAKFAST July 27, 2022 12:00am August 16, 2022 12:00am August 17, 2022 12:04am Start: 03-08-2018 End: 08-23-2018 take 1 tablet by mouth once daily Aspirin 81 MG tablet,chewable Discontinued 81 mg PO DAILY@0800 30 0 March 08, 2018 1:00am August 23, 2018 2:33pm Start: 06-18-2017 End: 06-20-2017 take 1 tablet by mouth once daily Aspirin 81 MG Tab.Chew Discontinued 81 mg PO DAILY June 18, 2017 12:00am June 20, 2017 11:44am [email or web address] End: 06-25-2023 take 1 tablet by mouth once daily aspirin, enteric coated (ASPIRIN, ENTERIC COATED) 81 mg EC tablet Take 81 mg by mouth once daily. 0 06/25/2023 Discontinued Comment on above: Take 81 mg by mouth once daily. Calcium-Magnesium- Zinc tab (7 sources) End: 06-01-2022 take 1 tablet by mouth once daily Ktvvcbl-Ivkmwauep-Gdpf tab Take 1 tablet by mouth once daily. 0 06/01/2022 Discontinued take 1 tablet by mouth once olga y Ceohpkc-Isvkynapv-Rvgx tab Take 1 tablet by mouth once daily. 0 Active Comment on above: Take 1 tablet by karla th once daily. 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 Start Date: 08/09/24 Stop Date: 08/04/25 Status: Ordered Medication Dispense Status: Completed Quantity: 1.0 Unit: mL Total Allowed Fills: 2 Fills Dispensed: 0 Indications: Age-related osteoporosis without current pathological fracture; Start: 01-16-2022 Prolia 60 mg/m L subcutaneous solution Dose : 60 mg = 1 mL, Subcutaneous, q6mo, # 1 mL, 1 Refill(s) Start Date: 01/16/22 Status: Ordered gabapentin 300 mg oral capsule (20 sources) Anti-epileptic Agent Start: 08-23-2018 gabapenti n 100 mg oral capsule Dose : 100 mg = 1 cap(s), Oral, qAM, 0 Refill(s) Start Date: 12/29/18 Status: Ordered Medication Dispense Status: Completed Total Allowed Fills: 1 Fills Dispensed: 0 Start: 06-18-2017 End: 08-23-2018 take 1 capsule by mouth twice daily Gabapentin 100 MG capsule Discontinued 100 mg PO TWICE A DAY June 18, 2017 12:00am August 23, 2018 2:34pm pain management Start: 10-18-2013 gabapentin 300 mg oral capsule Dose : 300 mg = 1 cap(s), Oral, qHS, 0 Refill(s), 97.9 Start Date: 03/20/21 Status: Ordered Medication Dispense Status: Completed Total Allowed Fills: 1 Fills Dispensed: 0 Comment on above: Take 300 mg by mouth daily at bedtime. Take 100 mg by mouth once daily. hydroCHLOROthiazide 12.5 mg / valsartan 160 mg oral tablet (6 sources) Thiazide Diuretic, Angiotensin 2 Receptor Philippe Start: 06-20-2017 End: 07-21-2017 Valsartan-Hydrochlorot hiazide 1 EACH tablet Discontinued 1 NMA PO DAILY 30 0 June 20, 2017 12:00am July 21, 2017 11:41am Start: 06-20-2017 End: 07-21-2017 Valsartan-Hydrochlorothiazid e Discontinued 1 EACH PO DAILY June 20, 2017 12:00am July 21, 2017 11:41am meloxicam 7.5 mg oral tablet (18 sources) Nonsteroidal Anti-inflammatory Drug Start: 01-31-2019 End: 09-19-2019 take 1 tablet by mouth twice daily Meloxicam (Mobic) 7.5 mg tablet Discontinued 7.5 mg PO TWICE A DAY January 31, 2019 1:00am September 19, 2019 1:18pm Start: 06-18-2017 End: 06-20-2017 take 1 tablet by mouth twice daily Meloxicam 7.5 MG tablet Discontinued 7.5 mg PO TWICE A DAY June 18, 2017 12:00am June 20, 2017 11:46am arthritis Start: 10-18-2013 End: 12-26-2014 take 1 tablet by mouth twice daily Meloxicam 7.5 MG tablet Discontinued 7.5 mg PO TWICE A DAY October 18, 2013 12:00am December 26, 2014 12:28pm Multivitamin,Ga-Shhg-Hlsttrd s (3 sources) Start: 06-18-2017 End: 01-18-2018 take 1 tablet by mouth once daily Multivitamin,Sj-Xkdo-Sujeulva Discontinued 1 TABLET PO DAILY June 17, 2017 11:00pm January 18, 2018 10:46am Start: 06-18-2017 End: 01-18-2018 take 1 tablet by mouth once daily Multivitamin,La-Jmll-Xnxgikup Discontinu ed 1 TABLET PO DAILY June 18, 2017 12:00am January 18, 2018 11:46am Multivitamin,Qu-Rxsv-Bcxjxvv s 1 TABLET tablet (3 sources) Start: 06-18-2017 End: 01-18-2018 take 1 tablet by mouth once daily Multivitamin,Ff-Zxva-Fjncmxeo 1 TABLET tablet Discontinued 1 {tbl} PO DAILY June 18, 2017 12:00am January 18, 2018 11:46am supplement Start: 06-18-2017 End: 01-18-2018 take 1 tablet by mouth once daily Multivitamin,Mv-Jvld-Alqijpjl 1 TABLET t ablet Discontinued 1 {tbl} PO DAILY June 18, 2017 12:00am January 18, 2018 11:46am nystatin 100 unt/mg topical powder (16 sources) Polyene Antifungal Start: 07-18-2024 End: 09-16-2024 nystatin 100,000 units/g topical powder Apply 1 lux, Topical, TID, PRN Rash, apply to the affected area 2 to 3 times daily until healing is complete., # 60 gram(s), 1 Refill(s), Pharmacy: [id number], Powder, 158.2, cm, 07/18/24 12:44:00 EDT, Height, 93.7, kg, 07/18/24 12:44:00 EDT, Dosing Weight Start Date: 07/18/24 Stop Date: 09/16/24 Status: Ordered Medication Dispense Status: Completed Quantity: 60.0 Unit: g Total Allowed Fills: 2 Fills Dispensed: 0 Start: 06-12-2022 End: 08-11-2022 nystatin 100,000 units/g top ical powder Apply 1 lux, Topical, TID, PRN Rash, apply to the affected area 2 to 3 times daily until healing is complete., # 60 gram(s), 1 Refill(s), Pharmacy: [id number], Powder, 158, cm, 06/12/22 10:35:00 EDT, Height, 93.2, kg, 06/12/22 10:35:00 EDT, Dosing Weight Start Date: 06/12/22 Stop Date: 08/11/22 Status: Ordered Start: 08-27-2020 nystatin 100,0 00 units/g topical powder Apply 1 lux, Topical, TID, apply to the affected area 2 to 3 times daily until healing is complete., # 60 gram(s), 0 Refill(s), Powder, 96.5 Start Date: 08/27/20 Status: Ordered oxyCODONE hydrochloride 5 mg oral tablet (6 sources) Opioid Agonist Start: 03-08-2018 End: 03-15-2018 take 5-10 mg by mouth every four hours as needed for pain Oxycodone 5 MG tablet Discontinued 5 - 10 mg PO EVERY 4 HOURS NEEDED as needed for Mod-Severe Pain (4-10/10) 90 7 0 March 08, 2018 1:00am March 14, 2018 1:00am March 15, 2018 1:12am Acute postoperative pain of right knee Other acute postprocedural pain microencapsulated potassium chloride 10 meq extended release oral tablet (12 sources) Start: 07-22-2017 End: 05-08-2020 take 1 tablet by mouth once daily Potassium Chloride 10 mEq tablet,ER particles/crystals Discontinued 10 meq PO DAILY 10 July 22, 2017 4:29pm May 08, 2020 2:22pm supplement Pt awaiting mail order rx, she is out of pills Start: 03-29-2014 End: 07-22-2017 take 1 tablet by mouth once daily Potassium Chloride 10 MEQ tablet,ER particles/crystals Discontinued 10 meq PO DAILY March 29, 2014 1:00am July 22, 2017 4:30pm supplement raNITIdine 75 mg oral tablet (12 sources) Histamine-2 Receptor Antagonist Start: 12-20-2014 End: 01-31-2019 Ranitidine Hcl 75 mg tablet Discontinued 75 mg PO NEEDED as needed for stomach acid January 18, 2018 11:45am January 31, 2019 3:44pm 60 actuat tiotropium 0.0025 mg/actuat inhalation spray (9 sources) Anticholinergic Start: 06-23-2024 End: 09-21-2024 take 2 puff(s) by inhalation once daily Spiriva Respimat 60 ACT 2.5 mcg/inh inhalation aerosol 2 puff(s), Inhalation, qDay, # 1 EA, 2 Refill(s), Pharmacy: [facility], 158.2, cm, 06/09/24 11:14:00 EDT, Height, kg, 06/09/24 11:14:00 EDT, Dosing Weight Start Date: 06/23/24 Stop Date: 09/21/24 Status: Ordered Medication Dispense Status: Completed Quantity: 1.0 Unit: EA Total Allowed Fills: 3 Fills Dispensed: 0 Start: 03-12-2023 End: 06-10-2023 take 2 puff(s) by inhalation once daily Spiriva Respimat 60 ACT 2.5 mcg/inh inhalation aerosol 2 puff(s), Inhalation, qDay, # 1 EA, 2 Refill(s), Pharmacy: [facility], 158.5, cm, 03/12/23 11:12:00 EST, Height, kg, 03/12/23 11:04:00 EST, Dosing Weight Start Date: 03/12/23 Stop Date: 06/10/23 Status: Ordered valsartan 160 mg oral tablet (18 sources) Angiotensin 2 Receptor Philippe Start: 07-21-2017 End: 09-27-2017 Valsartan 160 mg tablet Discontinued 160 mg PO daily 30 11 September 27, 2017 12:10pm September 27, 2017 2:17pm Pt changed to plain Valsartan when Lasix added in July 2017 Problems Active Problems Problem Classification Problem Date Documented Da te Episodic/Chronic Abdominal pain (20 sources) Suprapubic pain 11-21-2020 Episodic Acquired foot deformities (5 sources) Hammer toe 01-19-2024 Chronic Acute cerebrovascular disease (20 sources) Cerebrovascular accident; Translations: [Ischemic stroke] Onset: 8 03-14-2019 Chronic Comment on above: Right MCA Anxiety disorders (15 sources) Anxiety; Translations: [Anxiety disorder, unspecified] Onset: 3 11-25-2022 Chronic Asthma (6 sources) Asthma; Translations: [Unspecified asthma, uncomplicated] 03-07-2018 Chronic Cancer of breast (20 sources) Infiltrating duct carcinoma of breast; Translations: [Malignant tumor of breast ] Onset: 7 03-14-2019 Chronic Cancer of breast (4 sources) History of malignant neoplasm of breast; Translations: [Personal history of malignant neoplasm of breast] Onset: 5 06-25-2023 Episodic Cardiac dysrhythmias (2 sources) Bradycardia, unspecified; Translations: [Bradycardia, unspecified] Onset: 5 Episodic Chronic kidney disease (20 sources) Chronic kidney disease stage 3A 04-27-2019 Chronic Chronic kidney disease (2 sources) Chronic kidney disease; Translations: [Chronic kidney disease, stage 3a] Onset: 5 Chronic obstructive pulmonary disease and bronchiectasis (9 sources) Mild chronic obstructive pulmonary disease 03-15-2023 Chronic Conditions associated with dizziness or vertigo (16 sources) Dizziness 10-09-2021 Episodic Conduction disorders (20 sources) First degree atrioventricular block; Translations: [Right bundle branch block] 01-19-2019 Chronic Congestive heart failure; nonhypertensive (20 sources) Congestive heart failure; Translations: [Diastolic dysfunction] 03-14-2019 Chronic Comment on above: Stage I per cardiolo gy records Deficiency and other anemia (2 sources) Anemia; Translations: [Anemia, unspecified] Episodic Deficiency and other anemia (4 sources) Anemia, unspecified; Translations: [Anemia, unspecified] Onset: 3 Episodic Diabetes mellitus without complication (2 sources) Hyperglycemia, unspecified; Translations: [Hyperglycemia, unspecified] Onset: 5 Episodic Diseases of mouth; excluding dental (15 sources) Black hairy tongue 03-13-2022 Episodic Disorders of lipid metabolism (20 sources) Mixed hyperlipidemia; Translations: [Pure hypercholesterolemia] Onset: 3 10-22-2020 Chronic Comment on above: 08/26 ascvd risk 27.0 % ascvd adjusted risk 18.1% 01/24 E Codes: Fall (9 sources) Fall in home 04-23-2023 Esophageal disorders (20 sources) Gastroesophageal reflux disease; Translations: [Gastro-esophageal reflux disease without esophagitis] Onset: 3 11-30-2016 Chronic Essential hypertension (20 sources) Hypertensive disorder; Translations: [Essential hypertension] Onset: 3 04-11-2019 Chronic Fluid and electrolyte disorders (9 sources) Dehydration; Translations: [Dehydration] Onset: 3 03-07-2018 Episodic Genitourinary symptoms and ill-defined conditions (20 sources) Female stress incontinence 04-27-2019 Chronic Genitourinary symptoms and ill-defined conditions (18 sources) Urgent desire to urinate 03-23-2021 Episodic Gout and other crystal arthropathies (20 sources) Gout; Translations: [Gout, unspecified] Onset: 5 04-27-2019 Chronic Heart valve disorders (20 sources) Aortic valve regurgitation; Translations: [Mitral valve regurgitation] 02-01-2019 Chronic Comment on above: Mild per 06/23 echoca rdiogram Immunizations and screening for infectious disease (15 sources) Anti-nuclear factor positive; Translations: [Other specified abnormal immunological findings in serum] Onset: 3 11-25-2022 Episodic Inflammation; infection of eye (except that caused by tuberculosis or sexually transmitteddisease) (19 sources) Hordeolum 02-19-2021 Episodic Late effects of cerebrovascular disease (3 sources) Sequela of cerebrovascular accident; Translations: [Unspecified sequelae of cerebral infarction] 08-04-2022 Chronic Lymphadenitis (3 sources) Cervical lymphadenopathy 06-09-2024 Episodic Malaise and fatigue (20 sources) Fatigue; Translations: [Asthenia] Onset: 4 08-27-2020 Episodic Mycoses (20 sources) Candidiasis; Translations: [Tinea corporis] 08-27-2020 Episodic Nonmalignant breast conditions (3 sources) Breast lump; Translations: [Unspecified lump in unspecified breast] Episodic Nonspecific chest pain (20 sources) Chest pain; Translations: [Chest pain, unspecified] Onset: 3 03-20-2019 Episodic Nutritional deficiencies (20 sources) Vitamin D deficiency; Translations: [Vitamin D deficiency, unspecified] Onset: 5 04-27-2019 Chronic Occlusion or stenosis of precerebral arteries (14 sources) Bilateral stenosis of carotid arteries; Translations: [Occlusion and stenosis of unspecified carotid artery] Onset: 3 12-23-2022 Chronic Osteoarthritis (20 sources) Osteoarthritis; Translations: [Unspecified osteoarthritis, unspecified site] 11-30-2016 Chronic Osteoporosis (20 sources) Osteoporosis 01-26-2022 Chronic Other aftercare (1 source) Encounter for follow-up examination after completed treatment for malignant neoplasm; Translations: [Encounter for follow-up surveillance of breast cancer] Onset: 5 Episodic Other and unspecified benign neoplasm (20 sources) Benign neoplasm of transverse colon 01-20-2019 Episodic Other and unspecified benign neoplasm (17 sources) Melanocytic nevus 05-19-2021 Episodic Other bone disease and musculoskeletal deformities (4 sources) Osteopenia 01-12-2019 Episodic Other circulatory disease (20 sources) Wheeze - rhonchi 01-16-2021 Episodic Other connective tissue disease (20 sources) Muscle weakness of limb 08-27-2020 Episodic Other connective tissue disease (5 sources) Calcaneal spur 01-19-2024 Episodic Other diseases of kidney and ureters (20 sources) Cyst of kidney 04-27-2019 Episodic Other ear and sense organ disorders (17 sources) Impacted cerumen 05-07-2020 Episodic Other endocrine disorders (19 sources) Hyperparathyroidism; Translations: [Hyperparathyroidism, unspecified] 03-10-2021 Chronic Other endocrine disorders (2 sources) Endocrine disorder, unspecified; Translations: [Endocrine disorder, unspecified] Onset: 5 Episodic Other gastrointestinal disorders (20 sources) Abdominal mass 11-21-2020 Episodic Other hereditary and degenerative nervous system conditions (20 sources) Restless legs 06-18-2017 Chronic Other inflammatory condition of skin (15 sources) Intertrigo 06-15-2022 Episodic Other liver diseases (2 sources) Steatosis of liver 09-28-2024 Chronic Other liver diseases (1 source) Abnormal levels of other serum enzymes; Translations: [Abnormal levels of other serum enzymes] Onset: Episodic Other lower respiratory disease (20 sources) Dyspnea on exertion 05-07-2020 Episodic Other lower respiratory disease (13 sources) Chronic cough 11-24-2022 Episodic Other nervous system disorders (6 sources) Chronic pain syndrome; Translations: [Chronic pain syndrome] 03-07-2018 Chronic Other non-traumatic joint disorders (20 sources) Knee pain 08-27-2020 Episodic Other nutritional; endocrine; and metabolic disorders (20 sources) Hypoalbuminemia 10-22-2020 Chronic Other nutritional; endocrine; and metabolic disorders (18 sources) Hyperphosphatemia 03-07-2021 Chronic Other nutritional; endocrine; and metabolic disorders (1 source) Other disorders of phosphorus metabolism; Translations: [Other disorders of phosphorus metabolism] Chronic Other nutritional; endocrine; and metabolic disorders (6 sources) Hyperuricemia; Translations: [Hyperuricemia without signs of inflammatory arthritis and tophaceous disease] 03-07-2018 Episodic Other screening for suspected conditions (not mental disorders or infectious disease) (20 sources) ECG: sinus bradycardia; Translations: [Electrocardiogram abnormal] Onset: 5 01-19-2019 Episodic Other skin disorders (20 sources) Foot callus 05-07-2020 Episodic Other skin disorders (20 sources) Skin lesion 08-10-2019 Episodic Other skin disorders (7 sources) Mass of upper limb 09-21-2023 Episodic Other skin disorders (6 sources) Lesion of skin of face 01-18-2024 Episodic Other upper respiratory disease (20 sources) Lesion of nose 10-22-2020 Episodic Other upper respiratory disease (20 sources) Nasal congestion 02-09-2019 Episodic Other upper respiratory disease (2 sources) Nasal sinus problem 10-22-2020 Episodic Other upper respiratory infections (20 sources) Posterior rhinorrhea 05-07-2020 Episodic Peripheral and visceral atherosclerosis (20 sources) Arteriosclerotic vascular disease; Translations: [Peripheral vascular disease] 01-12-2019 Chronic Residual codes; unclassified (20 sources) Difficulty sleeping 08-27-2020 Episodic Residual codes; unclassified (20 sources) Insomnia 01-12-2019 Episodic Residual codes; unclassified (20 sources) Memory impairment 01-12-2019 Episodic Residual codes; unclassified (20 sources) Peripheral edema 03-14-2019 Episodic Residual codes; unclassified (20 sources) Postmenopausal state 05-07-2020 Episodic Residual codes; unclassified (19 sources) Noncompliance with treatment 03-06-2021 Episodic Residual codes; unclassified (15 sources) Noncompliance with medication regimen 03-16-2022 Episodic Residual codes; unclassified (7 sources) Not for resuscitation 09-21-2023 Episodic Rheumatoid arthritis and related disease (1 source) Inflammatory polyarthropathy; Translations: [Inflammatory polyarthropathy] Onset: 5 Chronic Skin and subcutaneous tissue infections (1 source) Abscess of abdominal wall 04-29-2021 Episodic Spondylosis; intervertebral disc disorders; other back problems (20 sources) Chronic low back pain 01-12-2019 Episodic Transient cerebral ischemia (20 sources) Transient cerebral ischemia; Translations: [Transient cerebral ischemic attack, unspecified] Onset: 3 Chronic Unclassified (20 sources) Seborrheic keratosis 08-10-2019 Unclassified (1 source) Cough, unspecified; Translations: [Cough, unspecified] Onset: 5 Viral infection (20 sources) Herpes labialis 04-11-2019 Episodic Past or Other Problems Problem Classification Problem Date Documented Da te Episodic/Chronic Other lower respiratory disease (14 sources) Dyspnea; Translations: [Shortness of breath] Onset: 05-19-2012 05-19-2012 Episodic Other non-traumatic joint disorders (2 sources) Pain in unspecified joint; Translations: [Pain in unspecified joint] Onset: 11-24-2022 Episodic Residual codes; unclassified (15 sources) Edema; Translations: [Edema, unspecified] Onset: 05-19-2012 05-19-2012 Episodic Unclassified (1 source) Cough, unspecified; Translations: [Cough, unspecified] Onset: 05-20-2024 Urinary tract infections (2 sources) Urinary tract infection, site not specified; Translations: [Urinary tract infection, site not specified] Onset: 01-11-2023 Episodic Results Test Name Value Interpretation Reference Range Facility A1Con 10-06-2024 Glucose [Mass/Vol] 120 mg/dL Normal [facility] Comment on above: Result Comment: Patito mated Average Glucose calculated by equation ((28.7xA1C)-46.7) Estimated average glucose (eAG) is a calculated value from Hemoglobin A1C and is medical device sales representative of the average blood glucose level in the last 2-3 month period. Normal range: less than 114 mg/dL Performed By: #### U JOCELINE, VIDH, A1C, FERR, LIPID, FES #### [place] [address] #### B12, PTH, FOL #### [place] [address] HbA1c (Bld) [Mass fraction] 5.8 % Normal 4.3-6.4 [facility] Comment on above: Performed By: #### U JOCELINE, VIDH, A1C, FERR, LIPID, FES #### [place] [address] #### B12, PTH, FOL #### [place] [address] B12on 10-06-2024 Cobalamin (Vitamin B12) [Mass/Vol] 1191 pg/mL High 211-911 [facility] Comment on above: Performed By: #### U JOCELINE, VIDH, A1C, FERR, LIPID, FES ####[place] [address]#### B12, PTH, FOL ####[address] [address] [place] 10-06-2024 Ferritin [Mass/Vol] 144.0 ng/mL Normal 8.0-252.0 [facility] Comment on above: Performed By: #### U JOCELINE, VIDH, A1C, FERR, LIPID, FES #### [place] [address] #### B12, PTH, FOL #### [place] [address] FESon 10-06-2024 Iron [Mass/Vol] 52 ug/dL Normal 50-170 [facility] Comment on above: Performed By: #### U JOCELINE, VIDH, A1C, FERR, LIPID, FES #### [address] [address] #### B12, PTH, FOL #### [place] [address] Iron Sat 19 % Normal [facility] Comment on above: Performed By: #### U JOCELINE, VIDH, A1C, FERR, LIPID, FES #### [address] [address] #### B12, PTH, FOL #### [place] [address] TIBC 272 mcg/dL Normal 250-450 [facility] Comment on above: Performed By: #### U JOCELINE, VIDH, A1C, FERR, LIPID, FES #### [place] [address] #### B12, PTH, FOL #### [place] [address] FOLon 10-06-2024 Folate 12.10 ng/mL Normal 5.38-24.00 [facility] Comment on above: Performed By: #### U JOCELINE, VIDH, A1C, FERR, LIPID, FES #### [place] [address] #### B12, PTH, FOL #### [place] [address] LABORATORYOrdered By: SYSTEM SYSTEM on 10-06-2024 25-hydroxyvitamin D3 [Mass/Vol] 68.9 ng/mL Invalid Interpretation Code AO ADM SS Comment on above: Interpretive Data: I nterpretive Values Based on Total 25(OH) Vitamin D: Deficient <20 ng/mL Insufficient 20 - <30 ng/mL Sufficient 30-100 ng/mL Cobalamin (Vitamin B12) [Mass/Vol] 1191 pg/mL High 211 - 911 pg/mL AH ADM SS Ferritin [Mass/Vol] 144.0 ng/mL Normal 8.0 - 25 2.0 ng/mL AO ADM SS Folate [Mass/Vol] 12.10 ng/mL Normal 5.38 - 24. 00 ng/mL AH ADM SS Glucose [Mass/Vol] 120 mg/dL Invalid Interpretation Code AO Chemistry S Comment on above: Interpretive Data: E stimated average glucose (eAG) is a calculated value from Hemoglobin A1C and is medical device sales representative of the average blood glucose level in the last 2-3 month period. Normal range: less than 114 mg/dL HbA1c (Bld) [Mass fraction] 5.8 % Normal 4.3 - 6.4 % AO ADM SS Iron [Mass/Vol] 52 ug/dL Normal 50 - 170 mcg/dL AO ADM SS Iron binding capacity [Mass/Vol] 272 mcg/dL Normal 250 - 450 mcg/dL AO ADM SS Iron Sat 19 % Invalid Interpretation Code AO ADM SS Parathyrin.intact [Mass/Vol] 284.3 pg/mL High 18.5 - 88.0 pg/mL AH ADM SS Uric Acid Lvl 7.3 mg/dL High 2.6 - 6.2 mg/dL AO ADM SS LABORATORYOrdered By: Michael Jiménez on 10-06-2024 Cholesterol [Mass/Vol] 180 mg/dL Normal 0 - 200 mg/dL AO ADM Comment on above: Interpretive Data: C holesterol Reference Interval: Less than 200 Desirable 200-239 Borderline high risk 240 and above High risk Cholesterol in HDL [Mass/Vol] 64 mg/dL High 40 - 60 mg/dL AO ADM SS Cholesterol in LDL [Mass/Vol] 94 mg/dL Normal 0 - 130 mg/dL AO ADM SS Triglyceride [Mass/Vol] 108 mg/dL Normal 0 - 150 mg/dL AO ADM SS Comment on above: Interpretive Data: T riglyceride Reference Interval: Less than 150 Normal 150-199 Borderline high risk 200-499 High risk 500 or higher Very high risk LIPIDon 10-06-2024 Cholesterol [Mass/Vol] 180 mg/dL Normal 0-200 [facility] Comment on above: Result Comment: Chol esterol Reference Interval: Less than 200 Desirable 200-239 Borderline high risk 240 and above High risk Performed By: #### U JOCELINE, VIDH, A1C, FERR, LIPID, FES #### [facility] [address] [place] [address] #### B12, PTH, FOL #### [address] [address] Cholesterol in HDL [Mass/Vol] 64 mg/dL High 40-60 [facility] Comment on above: Performed By: #### U JOCELINE, VIDH, A1C, FERR, LIPID, FES #### [address] [address] #### B12, PTH, FOL #### [place] [address] Cholesterol in LDL [Mass/Vol] 94 mg/dL Normal 0-130 [facility] Comment on above: Performed By: #### U JOCELINE, VIDH, A1C, FERR, LIPID, FES #### [place] [address] #### B12, PTH, FOL #### [place] [address] Triglyceride [Mass/Vol] 108 mg/dL Normal 0-150 [facility] Comment on above: Result Comment: Trig lyceride Reference Interval: Less than 150 Normal 150-199 Borderline high risk 200-499 High risk 500 or higher Very high risk Performed By: #### U JOCELINE, VIDH, A1C, FERR, LIPID, FES #### [address] [address] #### B12, PTH, FOL #### [address] [address] PTHon 10-06-2024 PTH, Intact 284.3 pg/mL High 18.5-88.0 [facility] Comment on above: Performed By: #### U JOCELINE, VIDH, A1C, FERR, LIPID, FES #### [address] [address] #### B12, PTH, FOL #### [place] [address] URICon 10-06-2024 Uric Acid Lvl 7.3 mg/dL High 2.6-6.2 [facility] Comment on above: Performed By: #### U JOCELINE, VIDH, A1C, FERR, LIPID, FES #### [address] [place] [address] #### B12, PTH, FOL #### [place] [id number] VIDHon 10-06-2024 Vit. D 25-Hydroxy 68.9 ng/mL Normal [facility] Comment on above: Result Comment: Inte rpretive Values Based on Total 25(OH) Vitamin D: Deficient <20 ng/mL Insufficient 20 - <30 ng/mL Sufficient 30-100 ng/mL Performed By: #### U JOCELINE, VIDH, A1C, FERR, LIPID, FES #### [address] [address] #### B12, PTH, FOL #### [place] [address] LABORATORYOrdered By: Amelia Gillis on 09-28-2024 Albumin DL <= 20 mg/L (U) [Mass/Vol] 7.9 mg/L Invalid Interpretation Code AO ADM SS Albumin/Creatinine DL <= 20 mg/L (U) [Mass ratio] 4 mg/G Normal 0 - 30 mg/G AO Chemistry S Creatinine (U) [Mass/Vol] 201.9 mg/dL Invalid Interpretation Code AO ADM SS MALBRon 09-28-2024 U Creatinine 201.9 mg/dL Normal [facility] Comment on above: Performed By: #### M ALBR ####[facility] [place], [place] [address] U Microalb 7.9 mg/L Normal [facility] Comment on above: Performed By: #### M ALBR ####[address] [place], [place] [address] U Ratio Alb/Cre 4 mg/G Normal 0-30 [facility] Comment on above: Performed By: #### M ALBR ####[address] [place], [place] [address] Abdomen Limitedon 09-14-2024 Abdomen Limited [facility] [address] [place] [id number] Abdomen Limited MR#: [id number] Acct: [id number] Name: CIARA SAWYER #: [id number] : 1945 F 79 From: Ty velarde MD PCP: Dr. Frank Morales DO Status: REG CLI Study: Abdomen Limited Date of Exam: 09/14/24 Exam# [id number] Ordering Dr: Maryann Jackson MD PROCEDURE: ABDOMEN LIMITED 09/14/2024 REASON FOR EXAM: ELEVATED LIVER ENZYMES COMPARISON: None FINDINGS: Liver: Diffusely echogenic suggesting fatty infiltration. The liver is not enlarged. It measures 13.7 cm. Gallbladder: Surgically absent. Common bile duct: Dilated measuring up to 9 mm . Pancreas: Normal Other: Visualized portions of the right kidney are unremarkable. No right upper quadrant ascites. US/Abdomen Limited IMPRESSION: Fatty infiltration of the liver. Status post cholecystectomy. Reading Location: [place] [address] CC: Dr. Frank Morales DO; Dr. Maryann Jackson MD Supervisor Fabrication Department: Signed Normal [facility] Absolute lymphocyte countOrd ered By: Maryann Jackson on 09-05-2024 Lymphocytes Auto (Unsp spec) [#/Vol] 1.59 10*3/uL 0.83-4.51 [facility] Absolute neutrophil countOrd ered By: Maryann Jackson on 09-05-2024 Neutrophils (Bld) [#/Vol] 4.0 10*3/uL 2.0-7.7 [facility] Anion gap in Serum or Plasma Ordered By: Maryann Jackson on 09-05-2024 Anion gap [Moles/Vol] 9 mmol/L 5-15 [facility] Automated lymphocyte count a s percentage of total leukocytesOrdered By: Maryann Jackson on 09-05-2024 Lymphocytes/100 WBC Auto (Unsp spec) 26.2 % 19-41 [facility] BUN/creatinine ratioOrdered By: Maryann Jackson on 09-05-2024 Urea nitrogen/Creatinine [Mass ratio] 14.0 mg/mg 10-20 [facility] Basophil percentageOrdered B y: Maryann Jackson on 09-05-2024 Basophils/100 WBC (Bld) 0.7 % 0-1 [facility] Bilirubin, totalOrdered By: Maryann Jackson on 09-05-2024 Bilirubin [Mass/Vol] 0.73 mg/dL 0.00-1.30 [facility] CBC W/Diff, Automatedon - Absolute Lymph 1.59 X10 3/uL Normal 0.83-4.51 [facility] Comment on above: Performed By: #### L 100.0100, L500.4050 #### [facility] Laboratory [address] [place], [address] Absolute Neut 4.0 X10 3/uL Normal 2.0-7.7 [facility] Comment on above: Performed By: #### L 100.0100, L500.4050 #### [facility] [address] [place], [address] Basophils/100 WBC (Bld) 0.7 % Normal 0-1 [facility] Comment on above: Performed By: #### L 100.0100, L500.4050 #### [facility] [address] [place], [address] Eosinophils/100 WBC (Bld) 3.5 % Normal 0-5 [facility] Comment on above: Performed By: #### L 100.0100, L500.4050 #### [facility] [address] [place], [address] Erythrocyte distribution width (RBC) [Ratio] 13.5 % Normal 11.6-14.6 [facility] Comment on above: Performed By: #### L 100.0100, L500.4050 #### [facility] [address] [place], [address] Hematocrit (Bld) [Volume fraction] 35.1 % Low 37-47 [facility] Comment on above: Performed By: #### L 100.0100, L500.4050 #### [facility] [address] [place], [address] Hemoglobin (Bld) [Mass/Vol] 11.6 g/dL Low 12.0-15.0 [facility] Comment on above: Performed By: #### L 100.0100, L500.4050 #### [facility] [address] [place], [address] IG% 0.300 Normal 0.0-0.9 [facility] Comment on above: Result Comment: IG% - Immature Granulocytes (promyelocytes, myelocytes and metamyelocytes) > 1% indicates that a LEFT SHIFT is Present. Performed By: #### L 100.0100, L500.4050 #### [facility] [address] [place], [address] Lymphocytes/100 WBC (Bld) 26.2 % Normal 19-41 [facility] Comment on above: Performed By: #### L 100.0100, L500.4050 #### [facility] [address] [place], [address] MCH (RBC) [Entitic mass] 31.9 pg Normal 27.0-32.0 [facility] Comment on above: Performed By: #### L 100.0100, L500.4050 #### [facility] [address] [place], [address] MCHC (RBC) [Mass/Vol] 33.0 g/dL Normal 32-36 [facility] Comment on above: Performed By: #### L 100.0100, L500.4050 #### [facility] [address] [place], [address] MCV (RBC) [Entitic vol] 96.4 fL Normal 81-99 [facility] Comment on above: Performed By: #### L 100.0100, L500.4050 #### [facility] [address] [place], [address] Monocytes/100 WBC (Bld) 4.0 % Normal 0-10 [facility] Comment on above: Performed By: #### L 100.0100, L500.4050 #### [facility] [address] [place], [address] Neutrophils/100 WBC (Bld) 65.3 % Normal 47-70 [facility] Comment on above: Performed By: #### L 100.0100, L500.4050 #### [facility] [address] [place], [address] Nucleated RBC (Bld) [#/Vol] 0 10*3/uL Normal 0-5 [facility] Comment on above: Performed By: #### L 100.0100, L500.4050 #### [facility] [address] [place], [address] Platelet mean volume (Bld) [Entitic vol] 12.6 fL High 6.2-12.0 [facility] Comment on above: Performed By: #### L 100.0100, L500.4050 #### [facility] [address] [place], [address] Platelets (Bld) [#/Vol] 194 10*3/uL Normal 150-450 [facility] Comment on above: Performed By: #### L 100.0100, L500.4050 #### [facility] [address] [place], [address] RBC (Bld) [#/Vol] 3.64 10*6/uL Low 4.2-5.4 [facility] Comment on above: Performed By: #### L 100.0100, L500.4050 #### [facility] [address] [place], [address] RDW SD 47.1 fl High 35.1-43.9 [facility] Comment on above: Performed By: #### L 100.0100, L500.4050 #### [facility] [address] [place], [address] WBC (Bld) [#/Vol] 6.1 10*3/uL Normal 4.4-11.0 [facility] Comment on above: Performed By: #### L 100.0100, L500.4050 #### [facility] [address] [place], [address] Carbon dioxide, total [Moles /volume] in Central venous bloodOrdered By: Maryann Jackson on 09-05-2024 CO2 [Moles/Vol] 24.9 mmol/L 21.0-32.0 [facility] Chloride assayOrdered By: Ant Jackson on 09-05-2024 Chloride [Moles/Vol] 105 mmol/L 98-108 [facility] Comprehensive Metabolic Prof ilon 09-05-2024 Albumin [Mass/Vol] 3.4 g/dL Normal 3.4-4.8 [facility] Comment on above: Performed By: #### L 100.0100, L500.4050 #### [facility] [address] [place], [address] Albumin/Globulin [Mass ratio] 1.4 {ratio} Normal 0.9-2.4 [facility] Comment on above: Performed By: #### L 100.0100, L500.4050 #### [facility] [address] [place], [address] ALK PHOS 89 U/L Normal 35-104 [facility] Comment on above: Performed By: #### L 100.0100, L500.4050 #### [facility] [address] [place], [address] ALT [Catalytic activity/Vol] 42 U/L High <=34 [facility] Comment on above: Performed By: #### L 100.0100, L500.4050 #### [facility] [address] [place], [address] AST [Catalytic activity/Vol] 40 U/L High <=31 [facility] Comment on above: Performed By: #### L 100.0100, L500.4050 #### [facility] [address] [place], [address] Bilirubin [Mass/Vol] 0.73 mg/dL Normal 0.00-1.30 [facility] Comment on above: Performed By: #### L 100.0100, L500.4050 #### [facility] [address] [place], [address] BUN/CRE 14.0 RATIO Normal 10-20 [facility] Comment on above: Performed By: #### L 100.0100, L500.4050 #### [facility] [address] [place], [address] Calcium [Mass/Vol] 8.9 mg/dL Normal 7.6-11.0 [facility] Comment on above: Performed By: #### L 100.0100, L500.4050 #### [facility] [address] [place], [address] Chloride [Moles/Vol] 105 mmol/L Normal 98-108 [facility] Comment on above: Performed By: #### L 100.0100, L500.4050 #### [facility] [address] [place], [address] CO2 [Moles/Vol] 24.9 mmol/L Normal 21.0-32.0 [facility] Comment on above: Performed By: #### L 100.0100, L500.4050 #### [facility] [address] [place], [address] Creatinine [Mass/Vol] 0.85 mg/dL Normal 0.70-1.20 [facility] Comment on above: Performed By: #### L 100.0100, L500.4050 #### [facility] [address] [place], [address] GAP 9 Normal 5-15 [facility] Comment on above: Performed By: #### L 100.0100, L500.4050 #### [facility] [address] [place], [address] GFR/1.73 sq M.predicted among non-blacks MDRD (S/P/Bld) [Vol rate/Area] 69 mL/min/{1.73_m2} Normal >60 [facility] Comment on above: Result Comment: mL/m in/1.73m2 CKD-EPI Creatinine Equation (2020) Performed By: #### L 100.0100, L500.4050 #### [facility] [address] [place], [address] Globulin (S) [Mass/Vol] 2.4 g/dL Normal 2.2-4.2 [facility] Comment on above: Performed By: #### L 100.0100, L500.4050 #### [facility] [address] [place], [address] Glucose [Mass/Vol] 152 mg/dL High 70-99 [facility] Comment on above: Performed By: #### L 100.0100, L500.4050 #### [facility] [address] [place], [address] Potassium [Moles/Vol] 3.8 mmol/L Normal 3.3-5.1 [facility] Comment on above: Performed By: #### L 100.0100, L500.4050 #### [facility] [address] [place], [address] Sodium [Moles/Vol] 139 mmol/L Normal 133-145 [facility] Comment on above: Performed By: #### L 100.0100, L500.4050 #### [facility] [address] [place], [address] T PROT 5.8 g/dL Low 5.9-8.4 [facility] Comment on above: Performed By: #### L 100.0100, L500.4050 #### [facility] [address] [place], [address] Urea nitrogen [Mass/Vol] 12 mg/dL Normal 4-19 [facility] Comment on above: Performed By: #### L 100.0100, L500.4050 #### [facility] [address] [place], [address] Eosinophil percentageOrdered By: Maryann Jackson on 09-05-2024 Eosinophils/100 WBC (Bld) 3.5 % 0-5 [facility] Erythrocyte distribution wid th ratioOrdered By: Maryann Jackson on 09-05-2024 Erythrocyte distribution width (RBC) [Ratio] 13.5 % 11.6-14.6 [facility] Erythrocyte distribution wid th standard deviationOrdered By: Maryann Jackson on 09-05-2024 Erythrocyte distribution width (RBC) [Ratio] 47.1 fl High 35.1-43.9 [facility] Glomerular filtration rate ( GFR) estimation/1.73 sq m using serum, plasma, or whole bOrdered By: Maryann Jackson on 09-05-2024 GFR/1.73 sq M.predicted among non-blacks MDRD (S/P/Bld) [Vol rate/Area] 69 mL/min/{1.73_m2} >60 [facility] Comment on above: mL/min/1.73m2 CKD-EP I Creatinine Equation (2020) Hematocrit Auto (Bld) [Volum e fraction]Ordered By: Maryann Jackson on 09-05-2024 Hematocrit (Bld) [Volume fraction] 35.1 % Low 37-47 [facility] Hemoglobin measurementOrdere d By: Maryann Jackson on 09-05-2024 Hemoglobin (Bld) [Mass/Vol] 11.6 g/dL Low 12.0-15.0 [facility] Immature granulocytes/100 WB C Auto (Bld)Ordered By: Maryann Jackson on 09-05-2024 Immature granulocytes/100 WBC (Bld) 0.300 % 0.0-0.9 [facility] Comment on above: IG% - Immature Granu locytes (promyelocytes, myelocytes and metamyelocytes) > 1% indicates that a LEFT SHIFT is Present. Laboratory - Chemistry and C hemistry - challengeOrdered By: Maryann Jackson on 09-05-2024 AST [Catalytic activity/Vol] 40 U/L High <32 [facility] MCV (mean corpuscular volume ) determinationOrdered By: Maryann Jackson on 09-05-2024 MCV (RBC) [Entitic vol] 96.4 fL 81-99 [facility] Mean corpuscular hemoglobin (MCH) determinationOrdered By: Maryann Jackson on 09-05-2024 MCH (RBC) [Entitic mass] 31.9 pg 27.0-32.0 [facility] Mean corpuscular hemoglobin concentration (MCHC) determinationOrdered By: Maryann Jackson on 09-05-2024 MCHC (RBC) [Mass/Vol] 33.0 g/dL 32-36 [facility] Mean platelet volume determi nationOrdered By: Maryann Jackson on 09-05-2024 Platelet mean volume (Bld) [Entitic vol] 12.6 fL High 6.2-12.0 [facility] Monocyte percentageOrdered B y: Maryann Jackson on 09-05-2024 Monocytes/100 WBC (Bld) 4.0 % 0-10 [facility] Neutrophil percentageOrdered By: Maryann Jackson on 09-05-2024 Neutrophils/100 WBC (Bld) 65.3 % 47-70 [facility] Nucleated red blood cell per centageOrdered By: Maryann Jackson on 09-05-2024 Nucleated RBC/100 WBC (Bld) [Ratio] 0 % 0-5 [facility] Platelet countOrdered By: Ant Jackson on 09-05-2024 Platelets (Bld) [#/Vol] 194 10*3/uL 150-450 [facility] Potassium measurement (mass/ volume)Ordered By: Maryann Jackson on 09-05-2024 Potassium (Unsp spec) [Mass/Vol] 3.8 mmol/L 3.3-5.1 [facility] RBC Auto (Bld) [#/Vol]Ordere d By: Maryann Jackson on 09-05-2024 RBC (Bld) [#/Vol] 3.64 10*6/uL Low 4.2-5.4 [facility] Serum creatinine measurement (mass/volume)Ordered By: Maryann Jackson on 09-05-2024 Creatinine [Mass/Vol] 0.85 mg/dL 0.70-1.20 [facility] Serum globulin measurementOr dered By: Maryann Jackson on 09-05-2024 Globulin (S) [Mass/Vol] 2.4 g/dL 2.2-4.2 [facility] Serum glucose measurement (m ass/volume)Ordered By: Maryann Jackson on 09-05-2024 Glucose [Mass/Vol] 152 mg/dL High 70-99 [facility] Serum or plasma alanine chandler otransferase (ALT) measurementOrdered By: Maryann Jackson on 09-05-2024 ALT [Catalytic activity/Vol] 42 U/L High <35 [facility] Serum or plasma albumin kezia urement (mass/volume)Ordered By: Maryann Jackson on 09-05-2024 Albumin [Mass/Vol] 3.4 g/dL 3.4-4.8 [facility] Serum or plasma albumin/glob ulin mass ratioOrdered By: Maryann Jackson on 09-05-2024 Albumin/Globulin [Mass ratio] 1.4 {ratio} 0.9-2.4 [facility] Serum or plasma alkaline cory sphatase measurementOrdered By: Maryann Jackson on 09-05-2024 ALP [Catalytic activity/Vol] 89 U/L 35-104 [facility] Serum or plasma calcium kezia urement (mass/volume)Ordered By: Maryann Jackson on 09-05-2024 Calcium [Mass/Vol] 8.9 mg/dL 7.6-11.0 [facility] Serum or plasma urea nitroge n measurement (mass/volume)Ordered By: Maryann Jackson on 09-05-2024 Urea nitrogen [Mass/Vol] 12 mg/dL 4-19 [facility] Sodium levelOrdered By: Leilani livingston Manuel on 09-05-2024 Sodium [Moles/Vol] 139 mmol/L 133-145 [facility] Total proteinOrdered By: Pratima dickens Manuel on 09-05-2024 Protein [Mass/Vol] 5.8 g/dL Low 5.9-8.4 [facility] White blood cell (WBC) count Ordered By: Maryann Manuel on 09-05-2024 WBC (Bld) [#/Vol] 6.1 10*3/uL 4.4-11.0 [facility] Thoracic Spine Min 4 Viewson 07-27-2024 Thoracic Spine Min 4 Views [facility] [address] [place], [place] [id number] Thoracic Spine Min 4 Views MR#: [id number] Acct: [id number] Name: CIARA SAWYER I Rep #: [id number] : 1945 F 79 From: Bibi Jeong MD PCP: Dr. Frank Morales DO Status: DEP AMB Study: Thoracic Spine Min 4 Views Date of Exam: 07/27 Exam# [id number] Ordering Dr: Daniel Guzman MD PROCEDURE: THORACIC SPINE MIN 4 VIEWS 07/27/2024 REASON FOR EXAM: CHRONIC PAIN, NKI TECHNIQUE: Five views of the thoracic spine, AP, bilateral oblique, lateral and swimmer's COMPARISON: None available FINDINGS: 12 rib-bearing thoracic vertebral body types identified. Mild S shaped thoracolumbar scoliosis. No evidence of fracture or malalignment. Multilevel thoracic spondylosis/discogenic change. Note of C5-6 and C6-7 spondylosis/discogenic change. L1-2 and L2-3 spondylosis/discogenic changes. RAD/Thoracic Spine Min 4 Views IMPRESSION: No fracture or malalignment identified. Scoliosis and multilevel spondylosis/discogenic change as above. Reading Location: [id number] CC: Dr. Daniel Guzman MD; Dr. Frank Morales DO Supervisor Fabrication Department: Signed [facility] CNOVSPon 07-25-2024 CNOVSP Visit (SP) Office (ERZA) CIARA SAWYER I ([id number]) 1945 F Date Time Provider Department 07/25/24 11:00 AM SAHRA OROZCO During your visit today, we recorded the following information about you: Temperature Pulse Blood pressure Weight 97.6 degrees 65/minute 154/75 90.1 kg Sahra Orozco APRN.[employer] 07/26/2024 10:22 AM Signed Chief Complaint Patient presents with: Established Patient HPI: Ciara Sawyer is a 79 year old female who presents here today for follow up breast cancer. Per Dr. Reyes's previous note: H/o HTN and CHF (?etiology) who was found to have an abnormality in the left breast on recent screening mammogram. Patient underwent a bilateral digital screening mammogram in October 2016. There was a 6 mm irregular density noted in the left breast appearing to be indeterminate. Patient underwent a subsequent ultrasound study on 10/20/2016. There was a 6 mm oval mass with an indistinct margin observed in the left breast at 2:00 anterior depth. It was hypoechoic. It correlated with the mammogram findings. The patient was referred to Dr. Farrar who performed a core needle biopsy on 11/04/2016. The pathology demonstrated an invasive well-differentiated ductal carcinoma. ER/CO were both positive at 90% and 80% respectively. HER-2 was quantified at 2+. Underwent a left-sided lumpectomy with left axillary sentinel lymph node dissection on 12/03/2016. The final pathology demonstrated that within the lumpectomy specimen there was an 8 mm invasive ductal carcinoma. It was grade 1. DCIS was absent. There was a unifocal tumor. Margins were free of carcinoma. All were greater than 1 cm. 3 lymph nodes were retrieved. All were negative for disease. RADIATION:01/26/17 to 02/16/17 Current therapy:arimidex Began 2017. Pt. had a stroke on June 18. I have to really think about what I'm thinking before I say it. I have to be careful when I drink liquids. No other effects from stroke. Pt. fell in the back yard a few weeks ago. She was seen in the ED. She is still having pain from the fall. She was also seen by PCP last week for f/u fall. Appetite:It's off and on. Wt. down 6# over past year. Energy level:Fair. Denies fevers. Had RSV this past winter. Resp:denies cough or sob at rest, occ. simons with steps/long distances h/o asthma, h/o seasonal allergies Cardiac:denies chest pain/palpitations-foll owed by cardiology GI:denies abd pain, n/v, moving bowels regularly :denies dysuria/hematuria Extrem:chronic low back pain/L knee/feet followed by CPM, body aches s/p fall Endo:denies hot flashes Neuro:neuropathy to feet Skin:denies rashes/lesions Heme:denies bleeding The ROS is otherwise negative. Past medical history, appointments, medications, allergies reviewed. No changes. EXAM: BP 154/75 Pulse 65 Temp 36.4 ?C (97.6 ?F) (Oral) Wt 90.1 kg (198 lb 10.2 oz) SpO2 94% BMI 37.23 kg/m? APPEARANCE Well appearing, alert, in no acute distress, well-hydrated, well nourished. HEART RRR with normal S1 and S2, no murmurs LUNG clear to auscultation BREAST FEMALE no mass/nodule b/l, scar to L upper/outer/radiation changes LYMPH NODES No cervical lymphadenopathy, No supraclavicular lymphadenopathy, and No axillary lymphadenopathy. ABDOMEN bowel sounds normoactive, soft, non-tender EXTREMITIES No edema NEURO Awake, alert and oriented x 3, Normal gait, and No involuntary motions. SKIN Skin color, texture, turgor normal, no suspicious rashes or lesions RADIOLOGY: Mammogram 07/14/24: IMPRESSION: There is no mammographic evidence of malignancy. Routine screening mammogram is recommended. Annual mammogram will be due in 1 year. BI-RADS Category 2: Benign ASSESSMENT/PLAN: 1. Encounter for follow-up surveillance of breast cancer - ICD9: V67.9, V10.3, ICD10: Z08, Z85.3 pT1b pN0sln MX ER/CO positive, HER2 negative by FISH invasive ductal carcinoma of the left breast. - No concerning findings on exam. - Tolerated arimidex well. - Reviewed mammogram with pt. - Pt. completed 5 years of AI therapy. - Continue follow up with PCP for routine care. - Mammogram due July 2025. - Follow up after above. - Pt. aware to call office with any questions/concerns. The patient indicates understanding of these issues and agrees with the plan. All documentation from previous visit of 06/25/23-Dr. Reyes/myself was copied and pasted, documentation has been reviewed and edited as necessary for today's visit. Sahra Orozco APRN.TOBACCO FARMWORKER Referring Provider: SAHRA OROZCO [[id number]] Allergies As of Date: 07/25/2024 Noted Allergy Reaction BONIVA (IBANDRONATE) 11/25/2016 2 - Rash TIBURCIO-1 05/19/2012 2 - Rash 12 - Shortness of Breath 14 - Other: See Comments Comments: tightness in chest IV CONTRAST DYE (IODINE) 11/25/2016 14 - Other: See Comments Comments (more content not included)... Normal [facility] LOCO SCREENING W TOMOon 07-14 LOCO SCREENING W RENATO * * *Final Report* * * DATE OF EXAM: Jul 14 2024 10:09AM [facility] 0582 - LOCO SCREENING W RENATO / PROCEDURE REASON: multiple diagnoses * * * * Physician Interpretation * * * * RESULT: [facility] [place] [address] [place] [id number] #[id number] - LOCO SCREENING W RENATO HISTORY: 79 year-old patient seen for screening. Patient is asymptomatic. The patient has the following personal history of breast cancer: breast cancer in the left breast at age 71. The patient has a family history of breast cancer. COMPARISON STUDIES: The present examination has been compared to prior imaging studies dated 04/14/2021 (mammogram), 12/24/2021 (mammogram), 05/28/2022 (mammogram) and 06/23/2023 (mammogram). MAMMOGRAM TECHNIQUE: The study was acquired using full field digital technology and interpreted from soft copy. Digital Breast Tomosynthesis (DBT) images were obtained and used to assist in the interpretation of this examination. MAMMOGRAM FINDINGS: There are scattered areas of fibroglandular density. There are no significant interval changes. The patient is status post left lumpectomy with post operative changes. No suspicious masses, calcifications or other abnormalities are seen in either breast. IMPRESSION: There is no mammographic evidence of malignancy. Routine screening mammogram is recommended. Annual mammogram will be due in 1 year. BI-RADS Category 2: Benign RISK: Due to the reported patient's history, the patient's estimated lifetime risk of developing breast cancer cannot be assessed at this time. We encourage all patients to talk with their providers about their risk assessment, further recommendations for managing breast health, and appropriate supplemental screening options if the patient has dense breast tissue. Interpreting Radiologist: Manisha Eason M.D. Electronically signed on: 07/16/2024 Supervisor Fabrication Department: BONNIE Transcribe Date/Time: Jul 14 2024 9:53A Dictated by: MANISHA EASON MD This examination was interpreted and the report reviewed and electronically signed by: MANISHA EASON MD on Jul 16 2024 4:22PM EST [id number] Normal [facility] 12 Lead EKGon 07-04-2024 12 Lead EKG [facility] [address] [place] [address] 12 Lead EKG 07/04/24 1634 MR#: [id number] Acct: [id number] Name: CIARA SAWYER I Rep #: [id number] : 1945 78 From: Josr oGmez MD Attending Dr: Status: DEP ER Ordering Dr: Keven Orourke DO Date: 07/04/24 Location: ED Sex: F C Admitted: Test Reason : CP Blood Pressure : */* mmHG Vent. Rate : 52 BPM Atrial Rate : 52 BPM P-R Int : 270 ms QRS Dur : 132 ms QT Int : 488 ms P-R-T Axes : 59 40 34 degrees QTcB Int : 453 ms Sinus bradycardia with 1st degree A-V block Right bundle branch block Abnormal ECG Confirmed by JOSR GOMEZ MD ([id number]), makeup editor JESÚS GUIDRY ([id number]) on 07/05/2024 1:33:23 PM Referred By: Confirmed By: JOSR GOMEZ MD 07/05/24 1333 Date Josr Gomez MD CC: Dr. Keven Orourke, DO; Dr. Frank Morales DO Signed Normal [facility] Absolute lymphocyte countOrd ered By: ED PROVIDER on 07-04-2024 Lymphocytes Auto (Unsp spec) [#/Vol] 1.41 10*3/uL 0.83-4.51 [facility] Absolute neutrophil countOrd ered By: ED PROVIDER on 07-04-2024 Neutrophils (Bld) [#/Vol] 2.9 10*3/uL 2.0-7.7 [facility] Anion gap in Serum or Plasma Ordered By: ED PROVIDER on 07-04-2024 Anion gap [Moles/Vol] 9 mmol/L 5-15 [facility] Automated lymphocyte count a s percentage of total leukocytesOrdered By: ED PROVIDER on 07-04-2024 Lymphocytes/100 WBC Auto (Unsp spec) 25.6 % - [facility] BUN/creatinine ratioOrdered By: ED PROVIDER on 07-04-2024 Urea nitrogen/Creatinine [Mass ratio] 16.8 mg/mg - [facility] Basic Metabolic Profile (BMP )on 07-04-2024 BUN/CRE 16.8 RATIO Normal 12-25 [facility] Comment on above: Performed By: #### L 100.0100, L300.3900, L501.4021, L500.2500 #### [facility] Laboratory [address] [place], [place], [id number] Calcium [Mass/Vol] 9.2 mg/dL Normal 7.6-11.0 [facility] Comment on above: Performed By: #### L 100.0100, L300.3900, L501.4021, L500.2500 #### [facility] [address] [place], [address] Chloride [Moles/Vol] 103 mmol/L Normal 98-108 [facility] Comment on above: Performed By: #### L 100.0100, L300.3900, L501.4021, L500.2500 #### [facility] [address] [place], [address] CO2 [Moles/Vol] 27.6 mmol/L Normal 21.0-32.0 [facility] Comment on above: Performed By: #### L 100.0100, L300.3900, L501.4021, L500.2500 #### [facility] [address] [place], [address] Creatinine [Mass/Vol] 0.88 mg/dL Normal 0.70-1.20 [facility] Comment on above: Performed By: #### L 100.0100, L300.3900, L501.4021, L500.2500 #### [facility] [address] [place], [address] GAP 9 Normal 5-15 [facility] Comment on above: Performed By: #### L 100.0100, L300.3900, L501.4021, L500.2500 #### [facility] [address] [place], [address] GFR/1.73 sq M.predicted among non-blacks MDRD (S/P/Bld) [Vol rate/Area] 66 mL/min/{1.73_m2} Normal >60 [facility] Comment on above: Result Comment: mL/m in/1.73m2 CKD-EPI Creatinine Equation (2020) Performed By: #### L 100.0100, L300.3900, L501.4021, L500.2500 #### [facility] [address] [place], [address] Glucose [Mass/Vol] 104 mg/dL High 70-99 [facility] Comment on above: Performed By: #### L 100.0100, L300.3900, L501.4021, L500.2500 #### [facility] [address] [place], [address] Potassium [Moles/Vol] 3.4 mmol/L Normal 3.3-5.1 [facility] Comment on above: Performed By: #### L 100.0100, L300.3900, L501.4021, L500.2500 #### [facility] [address] [place], [address] Sodium [Moles/Vol] 140 mmol/L Normal 133-145 [facility] Comment on above: Performed By: #### L 100.0100, L300.3900, L501.4021, L500.2500 #### [facility] [address] [place], [address] Urea nitrogen [Mass/Vol] 15 mg/dL Normal 4-19 [facility] Comment on above: Performed By: #### L 100.0100, L300.3900, L501.4021, L500.2500 #### [facility] [address] [place], [address] Basophil percentageOrdered B y: ED PROVIDER on 07-04-2024 Basophils/100 WBC (Bld) 0.9 % 0-1 [facility] CBC W/Diff, Automatedon 06-07 Absolute Lymph 1.41 X10 3/uL Normal 0.83-4.51 [facility] Comment on above: Performed By: #### L 100.0100, L300.3900, L501.4021, L500.2500 #### [facility] [address] [place], [address] Absolute Neut 2.9 X10 3/uL Normal 2.0-7.7 [facility] Comment on above: Performed By: #### L 100.0100, L300.3900, L501.4021, L500.2500 #### [facility] [address] [place], [address] Basophils/100 WBC (Bld) 0.9 % Normal 0-1 [facility] Comment on above: Performed By: #### L 100.0100, L300.3900, L501.4021, L500.2500 #### [facility] [address] [place], [address] Eosinophils/100 WBC (Bld) 4.9 % Normal 0-5 [facility] Comment on above: Performed By: #### L 100.0100, L300.3900, L501.4021, L500.2500 #### [facility] [address] [place], [address] Erythrocyte distribution width (RBC) [Ratio] 14.1 % Normal 11.6-14.6 [facility] Comment on above: Performed By: #### L 100.0100, L300.3900, L501.4021, L500.2500 #### [facility] [address] [place], [address] Hematocrit (Bld) [Volume fraction] 34.7 % Low 37-47 [facility] Comment on above: Performed By: #### L 100.0100, L300.3900, L501.4021, L500.2500 #### [facility] [address] [place], [address] Hemoglobin (Bld) [Mass/Vol] 11.7 g/dL Low 12.0-15.0 [facility] Comment on above: Performed By: #### L 100.0100, L300.3900, L501.4021, L500.2500 #### [facility] [address] [place], [address] IG% 0.400 Normal 0.0-0.9 [facility] Comment on above: Result Comment: IG% - Immature Granulocytes (promyelocytes, myelocytes and metamyelocytes) > 1% indicates that a LEFT SHIFT is Present. Performed By: #### L 100.0100, L300.3900, L501.4021, L500.2500 #### [facility] [address] [place], [address] Lymphocytes/100 WBC (Bld) 25.6 % Normal 19-41 [facility] Comment on above: Performed By: #### L 100.0100, L300.3900, L501.4021, L500.2500 #### [facility] [address] [place], [address] MCH (RBC) [Entitic mass] 31.9 pg Normal 27.0-32.0 [facility] Comment on above: Performed By: #### L 100.0100, L300.3900, L501.4021, L500.2500 #### [facility] [address] [place], [address] MCHC (RBC) [Mass/Vol] 33.7 g/dL Normal 32-36 [facility] Comment on above: Performed By: #### L 100.0100, L300.3900, L501.4021, L500.2500 #### [facility] [address] [place], [address] MCV (RBC) [Entitic vol] 94.6 fL Normal 81-99 [facility] Comment on above: Performed By: #### L 100.0100, L300.3900, L501.4021, L500.2500 #### [facility] [address] [place], [address] Monocytes/100 WBC (Bld) 14.9 % High 0-10 [facility] Comment on above: Performed By: #### L 100.0100, L300.3900, L501.4021, L500.2500 #### [facility] [address] [place], [address] Neutrophils/100 WBC (Bld) 53.3 % Normal 47-70 [facility] Comment on above: Performed By: #### L 100.0100, L300.3900, L501.4021, L500.2500 #### [facility] [address] [place], [address] Nucleated RBC (Bld) [#/Vol] 0 10*3/uL Normal 0-5 [facility] Comment on above: Performed By: #### L 100.0100, L300.3900, L501.4021, L500.2500 #### [facility] [address] [place], [address] Platelet mean volume (Bld) [Entitic vol] 11.5 fL Normal 6.2-12.0 [facility] Comment on above: Performed By: #### L 100.0100, L300.3900, L501.4021, L500.2500 #### [facility] [address] [place], [address] Platelets (Bld) [#/Vol] 164 10*3/uL Normal 150-450 [facility] Comment on above: Performed By: #### L 100.0100, L300.3900, L501.4021, L500.2500 #### [facility] [address] [place], [address] RBC (Bld) [#/Vol] 3.67 10*6/uL Low 4.2-5.4 [facility] Comment on above: Performed By: #### L 100.0100, L300.3900, L501.4021, L500.2500 #### [facility] [address] [place], [address] RDW SD 47.5 fl High 35.1-43.9 [facility] Comment on above: Performed By: #### L 100.0100, L300.3900, L501.4021, L500.2500 #### [facility] [address] [place], [address] WBC (Bld) [#/Vol] 5.5 10*3/uL Normal 4.4-11.0 [facility] Comment on above: Performed By: #### L 100.0100, L300.3900, L501.4021, L500.2500 #### [facility] [address] [place], [address] Carbon dioxide, total [Moles /volume] in Central venous bloodOrdered By: ED PROVIDER on 07-04-2024 CO2 [Moles/Vol] 27.6 mmol/L 21.0-32.0 [facility] Chest 1 View (Portable)on Chest 1 View (Portable) [facility] Imaging Services [address] [place] [address] Chest 1 View (Portable) MR#: [id number] Acct: [id number] Name: CIARA SAWYER I Rep #: [id number] : 1945 F 78 From: Joseluis Buckner MD PCP: Dr. Frank Morales DO Status: REG ER Study: Chest 1 View (Portable) Date of Exam: 07/04/24 Exam# [id number] Ordering Dr: Keven Orourke DO PROCEDURE: CHEST 1 VIEW (PORTABLE) 07/04/2024 REASON FOR EXAM: CHEST PAIN TECHNIQUE: Frontal view of the chest. COMPARISON: 07/26/2022 FINDINGS: Hardware: Status post left axillary lymph node dissection. Heart: The heart size is normal. Lungs: The lungs are clear. Bones: The bones are unremarkable. Other: Tortuous ectatic aorta. RAD/Chest 1 View (Portable) IMPRESSION: No Acute Findings. Reading Location: [id number] CC: Dr. Keven Orourke DO; Dr. Frank Morales DO Supervisor Fabrication Department: Signed Normal [facility] Chloride assayOrdered By: ED PROVIDER on 07-04-2024 Chloride [Moles/Vol] 103 mmol/L 98-108 [facility] Emergency Department Summary on 07-04-2024 Emergency Department Summary [facility] Medical Records Department [address] [place] [address] Emergency Department Summary 07/04/24 MR#: [id number] Acct: [id number] Name: CIARA SAWYER I Rep #: [id number] : 1945 78 From: Keven Orourke DO PCP: Dr. Frank Morales DO Status:DEP ER Location: ED HPI History of Present Illness Chief Complaint: Chest Pain Informant: patient Onset/Context/Timing Onset: Days (5) Activity at onset: sudden and - (Fall) Timing: Continuous Quality: Positive for Dull Location: Substernal Worsened By: Movement of Arm Relieved By: Nothing Associated Symptoms: Positive for Dyspnea and Cough; Negative for Nausea, Vomiting, Diaphoresis, Fever, Lightheadedness, Acid Reflux or Palpitations Narrative Narrative: Patient presents with chest pain that began after a fall 5 days ago. Patient states her pain is constant. Patient states it is dull. Patient states it is over the substernal area. Patient states it is worse when she moves her arms. Patient denies any nausea or vomiting. Patient admits to some shortness of breath and cough. Patient denies any sputum production. Patient denies any fevers or chills. Patient denies any nausea or vomiting. Patient denies any lightheadedness or dizziness. Patient denies any head injury or loss of consciousness when she fell. CVD Risk Factors: Positive for Hypertension and Hypercholesterolemia; Negative for Diabetes, Family History 1' PE Risk Factors: Positive for Cancer; Negative for Recent Travel/Surgery, Recent Immobilization, Prior DVT or PE or OCP + Smoking + >/=35 PFSH PFSH Medical History History of stroke with current residual effects Brain TIA Essential (primary) hypertension Obesity Pure hypercholesterolemia Chronic diastolic (congestive) heart failure Diverticulosis Abnormal electrocardiogram Right bundle branch block Gout Asthma Osteoarthritis GERD (gastroesophageal reflux disease) Chronic pain syndrome Breast cancer (2017) Ischemic cerebrovascular accident (CVA) (06/18/17) Home Medications ???Medication ???Instructions ???Recorded ???Last Taken ???Type gabapentin 300 mg capsule 300 mg PO QHS pain manangement 03/07/18 04:00 History hydrocortisone 2.5 % topical cream 1 applicatio topical DAILY PRN 0 06/18/17 Unknown History Itching albuterol sulfate 90 mcg/actuation 2 puff inhalation Q6H PRN Asthma 07/21/17 Unknown History aerosol inhaler (Ventolin HFA) carvedilol 12.5 mg tablet 12.5 mg PO BID BP 01/18/18 8 04:00 History allopurinol 300 mg tablet 300 mg PO DAILY gout 08/23/18 Unkn own History gabapentin 100 mg capsule 100 mg PO DAILY pain management Unknown History amlodipine 5 mg tablet 5 mg PO DAILY #90 tabs 02/29/20 Un known Rx cholecalciferol (vitamin D3) 25 1,000 unit PO DAILY 05/08/20 Unkno wn History mcg (1,000 unit) tablet cyanocobalamin (vitamin B-12) 100 100 mcg PO DAILY 05/08/20 Unknown History mcg tablet (Vitamin B-12) diclofenac sodium 1 % topical gel 2 g topical 4X/DAY PRN LE pain Unknown History mometasone 100 mcg/actuation HFA 2 puff inhalation DAILY PRN SOB Unknown History aerosol inhaler (Asmanex HFA) furosemide 40 mg tablet 40 mg PO QDAY DIURETIC #90 tabs Unknown Rx nitroglycerin 0.4 mg sublingual 0.4 mg sublingual Q5-15M PRN chest 03/28/21 Unknown Rx tablet pain #25 tabs losartan 100 mg tablet 100 mg PO DAILY #90 tabs 11/14/21 Unknown Rx omeprazole 40 mg capsule,delayed 40 mg PO DAILY gerd 11/14/21 Unkno wn History release oxybutynin chloride 5 mg tablet 1 - 2 tablet PO DAILY bladder 11/27 Unknown History spasms atorvastatin 20 mg tablet 20 mg PO QHS #30 tabs 07/27/22 Unk nown Rx melatonin 10 mg tablet 5 mg PO QHS 12/01/22 Unknown Histo ry sertraline 25 mg tablet 25 mg PO DAILY 12/01/22 Unknown Hi story clopidogrel 75 mg tablet 75 mg PO DAILY #90 tabs 06/14/23 U nknown Rx tramadol 50 mg tablet 50 mg PO Q8H PRN chronic pain #12 07/04/24 Unknown Rx tabs Allergy/AdvReac Type Severity Reaction Status Date / Time bupivacaine Allergy NEEDS Verified 07/04/24 16:21 FOLLOW-UP Gadolinium-MRI Contrast Allergy Chest Verified 07/04/24 16:21 Medium (MRI) tightness ibandronate sodium (From Allergy Rash Verified 07/04/24 16:21 Boniva) levofloxacin (From Levaquin) Allergy Swelling Verified 07/04/24 16:21 lidocaine Allergy NEEDS Verified 07/04/24 16:21 FOLLOW-UP Penicillins Allergy Rash Verified 07/04/24 16:21 procaine (From Novocain) Allergy NEEDS Verified 07/04/24 16:21 FOLLOW-UP mannitol (From Reclast) AdvReac Pain in Verified 07/04/24 16:21 joints water for injection,sterile AdvReac Pain in Verified 07/04/24 16:21 (From Reclast) joints zo (more content not included)... Normal [facility] Eosinophil percentageOrdered By: ED PROVIDER on 07-04-2024 Eosinophils/100 WBC (Bld) 4.9 % 0-5 [facility] Erythrocyte distribution wid th ratioOrdered By: ED PROVIDER on 07-04-2024 Erythrocyte distribution width (RBC) [Ratio] 14.1 % 11.6-14.6 [facility] Erythrocyte distribution wid th standard deviationOrdered By: ED PROVIDER on 07-04-2024 Erythrocyte distribution width (RBC) [Ratio] 47.5 fl High 35.1-43.9 [facility] Glomerular filtration rate ( GFR) estimation/1.73 sq m using serum, plasma, or whole bOrdered By: ED PROVIDER on 07-04-2024 GFR/1.73 sq M.predicted among non-blacks MDRD (S/P/Bld) [Vol rate/Area] 66 mL/min/{1.73_m2} >60 [facility] Comment on above: mL/min/1.73m2 CKD-EP I Creatinine Equation (2020) Hematocrit Auto (Bld) [Volum e fraction]Ordered By: ED PROVIDER on 07-04-2024 Hematocrit (Bld) [Volume fraction] 34.7 % Low 37-47 [facility] Hemoglobin measurementOrdere d By: ED PROVIDER on 07-04-2024 Hemoglobin (Bld) [Mass/Vol] 11.7 g/dL Low 12.0-15.0 [facility] Immature granulocytes/100 WB C Auto (Bld)Ordered By: ED PROVIDER on 07-04-2024 Immature granulocytes/100 WBC (Bld) 0.400 % 0.0-0.9 [facility] Comment on above: IG% - Immature Granu locytes (promyelocytes, myelocytes and metamyelocytes) > 1% indicates that a LEFT SHIFT is Present. International normalized rat io (INR) calculationOrdered By: ED PROVIDER on 07-04-2024 INR Coag (Bld) [Relative time] 0.9 {INR} [facility] L499.0042on 07-04-2024 Trop T High Sen 15 ng/L High <=14 [facility] Comment on above: Performed By: #### L 499.0042 #### [facility] [address] [place], [address] L499.0043on 07-04-2024 Trop T High Sen Normal <=14 [facility] Comment on above: Result Comment: PT D ISCHARGED Performed By: #### L 499.0043 #### [facility] [address] [place], [address] L501.4021on 07-04-2024 Trop T High Sen 19 ng/L High <=14 [facility] Comment on above: Performed By: #### L 100.0100, L300.3900, L501.4021, L500.2500 #### [facility] [address] [place], [address] MCV (mean corpuscular volume ) determinationOrdered By: ED PROVIDER on 07-04-2024 MCV (RBC) [Entitic vol] 94.6 fL 81-99 [facility] Mean corpuscular hemoglobin (MCH) determinationOrdered By: ED PROVIDER on 07-04-2024 MCH (RBC) [Entitic mass] 31.9 pg 27.0-32.0 [facility] Mean corpuscular hemoglobin concentration (MCHC) determinationOrdered By: ED PROVIDER on 07-04-2024 MCHC (RBC) [Mass/Vol] 33.7 g/dL 32-36 [facility] Mean platelet volume determi nationOrdered By: ED PROVIDER on 07-04-2024 Platelet mean volume (Bld) [Entitic vol] 11.5 fL 6.2-12.0 [facility] Monocyte percentageOrdered B y: ED PROVIDER on 07-04-2024 Monocytes/100 WBC (Bld) 14.9 % High 0-10 [facility] Neutrophil percentageOrdered By: ED PROVIDER on 07-04-2024 Neutrophils/100 WBC (Bld) 53.3 % 47-70 [facility] Nucleated red blood cell per centageOrdered By: ED PROVIDER on 07-04-2024 Nucleated RBC/100 WBC (Bld) [Ratio] 0 % 0-5 [facility] Platelet countOrdered By: ED PROVIDER on 07-04-2024 Platelets (Bld) [#/Vol] 164 10*3/uL 150-450 [facility] Potassium measurement (mass/ volume)Ordered By: ED PROVIDER on 07-04-2024 Potassium (Unsp spec) [Mass/Vol] 3.4 mmol/L 3.3-5.1 [facility] Prothrombin Time w/INRon INR Coag (PPP) [Relative time] 0.9 {INR} Normal [facility] Comment on above: Performed By: #### L 100.0100, L300.3900, L501.4021, L500.2500 #### [facility] [address] [place], [place], [id number] PT Coag (PPP) [Time] 12.4 s Normal 11.7-14.9 [facility] Comment on above: Performed By: #### L 100.0100, L300.3900, L501.4021, L500.2500 #### [facility] [address] [place], [address] Prothrombin timeOrdered By: ED PROVIDER on 07-04-2024 PT Coag (PPP) [Time] 12.4 s 11.7-14.9 [facility] RBC Auto (Bld) [#/Vol]Ordere d By: ED PROVIDER on 07-04-2024 RBC (Bld) [#/Vol] 3.67 10*6/uL Low 4.2-5.4 [facility] Serum creatinine measurement (mass/volume)Ordered By: ED PROVIDER on 07-04-2024 Creatinine [Mass/Vol] 0.88 mg/dL 0.70-1.20 [facility] Serum glucose measurement (m ass/volume)Ordered By: ED PROVIDER on 07-04-2024 Glucose [Mass/Vol] 104 mg/dL High 70-99 [facility] Serum or plasma calcium kezia urement (mass/volume)Ordered By: ED PROVIDER on 07-04-2024 Calcium [Mass/Vol] 9.2 mg/dL 7.6-11.0 [facility] Serum or plasma urea nitroge n measurement (mass/volume)Ordered By: ED PROVIDER on 07-04-2024 Urea nitrogen [Mass/Vol] 15 mg/dL 4-19 [facility] Sodium levelOrdered By: MAC NGO on 07-04-2024 Sodium [Moles/Vol] 140 mmol/L 133-145 [facility] Troponin T.cardiac [Mass/vol ume] in Serum or Plasma by High sensitivity methodOrdered By: Keven Orourke on 07-04-2024 Troponin T.cardiac High sensitivity method [Mass/Vol] 15 ng/L High <14 [facility] Troponin T.cardiac [Mass/vol ume] in Serum or Plasma by High sensitivity methodOrdered By: ED PROVIDER on 07-04-2024 Troponin T.cardiac High sensitivity method [Mass/Vol] 19 ng/L High <14 [facility] White blood cell (WBC) count Ordered By: ED PROVIDER on 07-04-2024 WBC (Bld) [#/Vol] 5.5 10*3/uL 4.4-11.0 [facility] Absolute lymphocyte countOrd ered By: Maryann Jackson on 06-06-2024 Lymphocytes Auto (Unsp spec) [#/Vol] 1.73 10*3/uL 0.83-4.51 [facility] Absolute neutrophil countOrd ered By: Maryann Jackson on 06-06-2024 Neutrophils (Bld) [#/Vol] 6.6 10*3/uL 2.0-7.7 [facility] Anion gap in Serum or Plasma Ordered By: Maryann Jackson on 06-06-2024 Anion gap [Moles/Vol] 12 mmol/L 5-15 [facility] Automated lymphocyte count a s percentage of total leukocytesOrdered By: Maryannmaninder Jackson on 06-06-2024 Lymphocytes/100 WBC Auto (Unsp spec) 17.5 % Low 19-41 [facility] BUN/creatinine ratioOrdered By: [facility] Manuel on 06-06-2024 Urea nitrogen/Creatinine [Mass ratio] 17.9 mg/mg 10-20 [facility] Basophil percentageOrdered B y: Maryann Jackson on 06-06-2024 Basophils/100 WBC (Bld) 0.9 % 0-1 [facility] Bilirubin, totalOrdered By: Maryannmaninder Jackson on 06-06-2024 Bilirubin [Mass/Vol] 0.62 mg/dL 0.00-1.30 [facility] CBC W/Diff, Automatedon - Absolute Lymph 1.73 X10 3/uL Normal 0.83-4.51 [facility] Comment on above: Performed By: #### L 100.0100, L300.3900, L501.4021, L500.2500 #### [facility] Laboratory [address] [place], [address] Absolute Neut 6.6 X10 3/uL Normal 2.0-7.7 [facility] Comment on above: Performed By: #### L 100.0100, L300.3900, L501.4021, L500.2500 #### [facility] [address] [place], [address] Basophils/100 WBC (Bld) 0.9 % Normal 0-1 [facility] Comment on above: Performed By: #### L 100.0100, L300.3900, L501.4021, L500.2500 #### [facility] [address] [place], [address] Eosinophils/100 WBC (Bld) 5.1 % High 0-5 [facility] Comment on above: Performed By: #### L 100.0100, L300.3900, L501.4021, L500.2500 #### [facility] [address] [place], [address] Erythrocyte distribution width (RBC) [Ratio] 14.1 % Normal 11.6-14.6 [facility] Comment on above: Performed By: #### L 100.0100, L300.3900, L501.4021, L500.2500 #### [facility] [address] [place], [address] Hematocrit (Bld) [Volume fraction] 39.0 % Normal 37-47 [facility] Comment on above: Performed By: #### L 100.0100, L300.3900, L501.4021, L500.2500 #### [facility] [address] [place], [address] Hemoglobin (Bld) [Mass/Vol] 13.0 g/dL Normal 12.0-15.0 [facility] Comment on above: Performed By: #### L 100.0100, L300.3900, L501.4021, L500.2500 #### [facility] [address] [place], [address] IG% 0.300 Normal 0.0-0.9 [facility] Comment on above: Result Comment: IG% - Immature Granulocytes (promyelocytes, myelocytes and metamyelocytes) > 1% indicates that a LEFT SHIFT is Present. Performed By: #### L 100.0100, L300.3900, L501.4021, L500.2500 #### [facility] [address] [place], [address] Lymphocytes/100 WBC (Bld) 17.5 % Low 19-41 [facility] Comment on above: Performed By: #### L 100.0100, L300.3900, L501.4021, L500.2500 #### [facility] [address] [place], [address] MCH (RBC) [Entitic mass] 31.9 pg Normal 27.0-32.0 [facility] Comment on above: Performed By: #### L 100.0100, L300.3900, L501.4021, L500.2500 #### [facility] [address] [place], [address] MCHC (RBC) [Mass/Vol] 33.3 g/dL Normal 32-36 [facility] Comment on above: Performed By: #### L 100.0100, L300.3900, L501.4021, L500.2500 #### [facility] [address] [place], [address] MCV (RBC) [Entitic vol] 95.8 fL Normal 81-99 [facility] Comment on above: Performed By: #### L 100.0100, L300.3900, L501.4021, L500.2500 #### [facility] [address] [place], [address] Monocytes/100 WBC (Bld) 9.0 % Normal 0-10 [facility] Comment on above: Performed By: #### L 100.0100, L300.3900, L501.4021, L500.2500 #### [facility] [address] [place], [address] Neutrophils/100 WBC (Bld) 67.2 % Normal 47-70 [facility] Comment on above: Performed By: #### L 100.0100, L300.3900, L501.4021, L500.2500 #### [facility] [address] [place], [address] Nucleated RBC (Bld) [#/Vol] 0 10*3/uL Normal 0-5 [facility] Comment on above: Performed By: #### L 100.0100, L300.3900, L501.4021, L500.2500 #### [facility] [address] [place], [address] Platelet mean volume (Bld) [Entitic vol] 12.2 fL High 6.2-12.0 [facility] Comment on above: Performed By: #### L 100.0100, L300.3900, L501.4021, L500.2500 #### [facility] [address] [place], [address] Platelets (Bld) [#/Vol] 213 10*3/uL Normal 150-450 [facility] Comment on above: Performed By: #### L 100.0100, L300.3900, L501.4021, L500.2500 #### [facility] [address] [place], [address] RBC (Bld) [#/Vol] 4.07 10*6/uL Low 4.2-5.4 [facility] Comment on above: Performed By: #### L 100.0100, L300.3900, L501.4021, L500.2500 #### [facility] [address] [place], [address] RDW SD 48.0 fl High 35.1-43.9 [facility] Comment on above: Performed By: #### L 100.0100, L300.3900, L501.4021, L500.2500 #### [facility] [address] [place], [address] WBC (Bld) [#/Vol] 9.9 10*3/uL Normal 4.4-11.0 [facility] Comment on above: Performed By: #### L 100.0100, L300.3900, L501.4021, L500.2500 #### [facility] [address] [place], [address] Carbon dioxide, total [Moles /volume] in Central venous bloodOrdered By: Maryann Jackson on 06-06-2024 CO2 [Moles/Vol] 25.6 mmol/L 21.0-32.0 [facility] Chloride assayOrdered By: Ant Jackson on 06-06-2024 Chloride [Moles/Vol] 102 mmol/L 98-108 [facility] Comprehensive Metabolic Prof ilon 06-06-2024 Albumin [Mass/Vol] 3.6 g/dL Normal 3.4-4.8 [facility] Comment on above: Performed By: #### L 100.0100, L300.3900, L501.4021, L500.2500 #### [facility] [address] [place], [address] Albumin/Globulin [Mass ratio] 1.4 {ratio} Normal 0.9-2.4 [facility] Comment on above: Performed By: #### L 100.0100, L300.3900, L501.4021, L500.2500 #### [facility] [address] [place], [address] ALK PHOS 98 U/L Normal 35-104 [facility] Comment on above: Performed By: #### L 100.0100, L300.3900, L501.4021, L500.2500 #### [facility] [address] [place], [address] ALT [Catalytic activity/Vol] 9 U/L Normal <=34 [facility] Comment on above: Performed By: #### L 100.0100, L300.3900, L501.4021, L500.2500 #### [facility] [address] [place], [address] AST [Catalytic activity/Vol] 15 U/L Normal <=31 [facility] Comment on above: Performed By: #### L 100.0100, L300.3900, L501.4021, L500.2500 #### [facility] [address] [place], [address] Bilirubin [Mass/Vol] 0.62 mg/dL Normal 0.00-1.30 [facility] Comment on above: Performed By: #### L 100.0100, L300.3900, L501.4021, L500.2500 #### [facility] [address] [place], [address] BUN/CRE 17.9 RATIO Normal 10-20 [facility] Comment on above: Performed By: #### L 100.0100, L300.3900, L501.4021, L500.2500 #### [facility] [address] [place], [address] Calcium [Mass/Vol] 9.0 mg/dL Normal 7.6-11.0 [facility] Comment on above: Performed By: #### L 100.0100, L300.3900, L501.4021, L500.2500 #### [facility] [address] [place], [address] Chloride [Moles/Vol] 102 mmol/L Normal 98-108 [facility] Comment on above: Performed By: #### L 100.0100, L300.3900, L501.4021, L500.2500 #### [facility] [address] [place], [address] CO2 [Moles/Vol] 25.6 mmol/L Normal 21.0-32.0 [facility] Comment on above: Performed By: #### L 100.0100, L300.3900, L501.4021, L500.2500 #### [facility] [address] [place], [address] Creatinine [Mass/Vol] 0.92 mg/dL Normal 0.70-1.20 [facility] Comment on above: Performed By: #### L 100.0100, L300.3900, L501.4021, L500.2500 #### [facility] [address] [place], [address] GAP 12 Normal 5-15 [facility] Comment on above: Performed By: #### L 100.0100, L300.3900, L501.4021, L500.2500 #### [facility] [address] [place], [address] GFR/1.73 sq M.predicted among non-blacks MDRD (S/P/Bld) [Vol rate/Area] 63 mL/min/{1.73_m2} Normal >60 [facility] Comment on above: Result Comment: mL/m in/1.73m2 CKD-EPI Creatinine Equation (2020) Performed By: #### L 100.0100, L300.3900, L501.4021, L500.2500 #### [facility] [address] [place], [address] Globulin (S) [Mass/Vol] 2.5 g/dL Normal 2.2-4.2 [facility] Comment on above: Performed By: #### L 100.0100, L300.3900, L501.4021, L500.2500 #### [facility] [address] [place], [address] Glucose [Mass/Vol] 111 mg/dL High 70-99 [facility] Comment on above: Performed By: #### L 100.0100, L300.3900, L501.4021, L500.2500 #### [facility] [address] [place], [address] Potassium [Moles/Vol] 4.2 mmol/L Normal 3.3-5.1 [facility] Comment on above: Performed By: #### L 100.0100, L300.3900, L501.4021, L500.2500 #### [facility] [address] [place], [address] Sodium [Moles/Vol] 140 mmol/L Normal 133-145 [facility] Comment on above: Performed By: #### L 100.0100, L300.3900, L501.4021, L500.2500 #### [facility] [address] [place], [address] T PROT 6.1 g/dL Normal 5.9-8.4 [facility] Comment on above: Performed By: #### L 100.0100, L300.3900, L501.4021, L500.2500 #### [facility] [address] [place], [address] Urea nitrogen [Mass/Vol] 16 mg/dL Normal 4-19 [facility] Comment on above: Performed By: #### L 100.0100, L300.3900, L501.4021, L500.2500 #### [facility] [address] [place], [address] Eosinophil percentageOrdered By: Maryann Jackson on 06-06-2024 Eosinophils/100 WBC (Bld) 5.1 % High 0-5 [facility] Erythrocyte distribution wid th (RBC) [Ratio]Ordered By: Maryann Jackson on 06-06-2024 Erythrocyte distribution width (RBC) [Entitic vol] 48.0 fL High 35.1-43.9 [facility] Erythrocyte distribution wid th ratioOrdered By: Maryann Jackson on 06-06-2024 Erythrocyte distribution width (RBC) [Ratio] 14.1 % 11.6-14.6 [facility] Erythrocyte distribution wid th standard deviationOrdered By: Maryann Jackson on 06-06-2024 Erythrocyte distribution width (RBC) [Ratio] 48.0 fl High 35.1-43.9 [facility] GFR/1.73 sq M.predicted ricky g non-blacks MDRD (S/P/Bld) [Vol rate/Area]Ordered By: Maryann Jackson on 06-06-2024 Estimated GFR (MDRD) Non-Af Amer [address] [facility] Comment on above: mL/min/1.73m2 CKD-EP I Creatinine Equation (2020) Glomerular filtration rate ( GFR) estimation/1.73 sq m using serum, plasma, or whole bOrdered By: Maryann Jackson on 06-06-2024 GFR/1.73 sq M.predicted among non-blacks MDRD (S/P/Bld) [Vol rate/Area] 63 mL/min/{1.73_m2} >60 [facility] Comment on above: mL/min/1.73m2 CKD-EP I Creatinine Equation (2020) Hematocrit Auto (Bld) [Volum e fraction]Ordered By: Maryann Jackson on 06-06-2024 Hematocrit (Bld) [Volume fraction] 39.0 % 37-47 [facility] Hemoglobin measurementOrdere d By: Maryann Jackson on 06-06-2024 Hemoglobin (Bld) [Mass/Vol] 13.0 g/dL 12.0-15.0 [facility] Immature granulocytes/100 WB C Auto (Bld)Ordered By: Maryann Jackson on 06-06-2024 Immature granulocytes/100 WBC (Bld) 0.300 % 0.0-0.9 [facility] Comment on above: IG% - Immature Granu locytes (promyelocytes, myelocytes and metamyelocytes) > 1% indicates that a LEFT SHIFT is Present. Laboratory - Chemistry and C hemistry - challengeOrdered By: Maryann Jackson on 06-06-2024 AST [Catalytic activity/Vol] 15 U/L <32 [facility] Lymphocytes Auto (Unsp spec) [#/Vol]Ordered By: Maryann Jackson on 06-06-2024 Lymphocytes (Bld) [#/Vol] 1.73 10*3/uL 0.83-4.51 [facility] Lymphocytes/100 WBC Auto (Un sp spec)Ordered By: Maryann Jackson on 06-06-2024 Lymphocytes/100 WBC (Bld) 17.5 % Low 19-41 [facility] MCV (mean corpuscular volume ) determinationOrdered By: Maryann Jackson on 06-06-2024 MCV (RBC) [Entitic vol] 95.8 fL 81-99 [facility] Mean corpuscular hemoglobin (MCH) determinationOrdered By: Maryann Jackson on 06-06-2024 MCH (RBC) [Entitic mass] 31.9 pg 27.0-32.0 [facility] Mean corpuscular hemoglobin concentration (MCHC) determinationOrdered By: Maryann Jackson on 06-06-2024 MCHC (RBC) [Mass/Vol] 33.3 g/dL 32-36 [facility] Mean platelet volume determi nationOrdered By: Maryann Jackson on 06-06-2024 Platelet mean volume (Bld) [Entitic vol] 12.2 fL High 6.2-12.0 [facility] Monocyte percentageOrdered B y: Maryann Jackson on 06-06-2024 Monocytes/100 WBC (Bld) 9.0 % 0-10 [facility] Neutrophil percentageOrdered By: Maryann Jackson on 06-06-2024 Neutrophils/100 WBC (Bld) 67.2 % 47-70 [facility] Nucleated red blood cell per centageOrdered By: Maryann Jackson on 06-06-2024 Nucleated RBC/100 WBC (Bld) [Ratio] 0 % 0-5 [facility] Platelet countOrdered By: Ant Jackson on 06-06-2024 Platelets (Bld) [#/Vol] 213 10*3/uL 150-450 [facility] Potassium (Unsp spec) [Mass/ Vol]Ordered By: Maryann Jackson on 06-06-2024 Potassium [Moles/Vol] 4.2 mmol/L 3.3-5.1 [facility] Potassium measurement (mass/ volume)Ordered By: Maryann Jackson on 06-06-2024 Potassium (Unsp spec) [Mass/Vol] 4.2 mmol/L 3.3-5.1 [facility] RBC Auto (Bld) [#/Vol]Ordere d By: Maryann Jackson on 06-06-2024 RBC (Bld) [#/Vol] 4.07 10*6/uL Low 4.2-5.4 [facility] Serum creatinine measurement (mass/volume)Ordered By: Maryann Jackson on 06-06-2024 Creatinine [Mass/Vol] 0.92 mg/dL 0.70-1.20 [facility] Serum globulin measurementOr dered By: Maryann Jackson on 06-06-2024 Globulin (S) [Mass/Vol] 2.5 g/dL 2.2-4.2 [facility] Serum glucose measurement (m ass/volume)Ordered By: Maryann Jackson on 06-06-2024 Glucose [Mass/Vol] 111 mg/dL High 70-99 [facility] Serum or plasma alanine chandler otransferase (ALT) measurementOrdered By: Maryann Jackson on 06-06-2024 ALT [Catalytic activity/Vol] 9 U/L <35 [facility] Serum or plasma albumin kezia urement (mass/volume)Ordered By: Maryann Jackson on 06-06-2024 Albumin [Mass/Vol] 3.6 g/dL 3.4-4.8 [facility] Serum or plasma albumin/glob ulin mass ratioOrdered By: Maryann Jackson on 06-06-2024 Albumin/Globulin [Mass ratio] 1.4 {ratio} 0.9-2.4 [facility] Serum or plasma alkaline cory sphatase measurementOrdered By: Maryann Jackson on 06-06-2024 ALP [Catalytic activity/Vol] 98 U/L 35-104 [facility] Serum or plasma calcium kezia urement (mass/volume)Ordered By: Maryann Jackson on 06-06-2024 Calcium [Mass/Vol] 9.0 mg/dL 7.6-11.0 [facility] Serum or plasma urea nitroge n measurement (mass/volume)Ordered By: Maryann Jackson on 06-06-2024 Urea nitrogen [Mass/Vol] 16 mg/dL 4-19 [facility] Sodium levelOrdered By: Leilani Jackson on 06-06-2024 Sodium [Moles/Vol] 140 mmol/L 133-145 [facility] Total proteinOrdered By: Pratima Jackson on 06-06-2024 Protein [Mass/Vol] 6.1 g/dL 5.9-8.4 [facility] White blood cell (WBC) count Ordered By: Maryann Jackson on 06-06-2024 WBC (Bld) [#/Vol] 9.9 10*3/uL 4.4-11.0 [facility] CVFLURVon 05-20-2024 FLU A PCR Negative Normal Negative [facility] Comment on above: Performed By: #### C VFLURV ####[place] [address] [place] [address] FLU B PCR Negative Normal Negative [facility] Comment on above: Performed By: #### C VFLURV ####[place] [address] [place] [address] RSV PCR Positive Abnormal Negative [facility] Comment on above: Performed By: #### C VFLURV ####[place] [address] [place] [address] SARS-CoV-2 (COVID-19) RNA HARPER+probe Ql (Unsp spec) Negative Normal Negative [facility] Comment on above: Result Comment: Resu lts from the Xpert Xpress CoV-2/Flu/RSV plus test should be correlated with the clinical history, epidemiological data, and other data available to the clinical evaluating the patient. Performance of the Xpert Xpress CoV-2/Flu/RSV plus test has only been established in nasopharyngeal swab specimen. Erroneous test results might occur from improper specimen collection, failure to follow the recommended sample collection, handling and storage procedures, technical error, or sample mix-up. False negative results may occur if a virus is present at a level below the analytical limit of detection. Viral nucleic acid may persist in vivo, independent of virus viability. Detection of analyte target(s) does not imply that the corresponding virus(es) are infectious or are the causative agents for clinical symptoms. Recent patient exposure to FluMist or other live attenuated influenza vaccines may cause inaccurate positive results. Performed By: #### C VFLURV ####[facility] [place], [place] [address] .GFRon 04-21-2024 Estimated Glomerular Filtration Rate 77 ml/min/1.73sqm Normal [facility] Comment on above: Result Comment: Stages of Chronic Kidney Disease (CKD) Stage Description eGFR(ml/min/1.73 sq.m.) CKD 1 Normal kidney function or >=90 normal kindney function with possible kidney damage (ex. Proteinuria) CKD 2 Kidney damage with mild loss 60-89 of kidney function CKD 3a Mild to moderate loss of kidney 45-59 function CKD 3b Moderate to severe loss of 30-44 of kindey function CKD 4 Severe loss of kidney function 15-29 CKD 5 Kidney failure <15 Note: (go live 2024) the eGFR calculation was updated to the 2020 CKD-EPI creatinine equation without a race factor to calculate the eGFR results. Performed By: #### Massimo BALBUENA, BMP ####[address] [place], [place] [address] BMPon 04-21-2024 BUN/Creatinine Ratio 19 ratio Normal 7-27 [facility] Comment on above: Performed By: #### Massimo BALBUENA, BMP ####[address] [place], [place] [address] Calcium [Mass/Vol] 9.2 mg/dL Normal 8.4-10.2 [facility] Comment on above: Performed By: #### Massimo BALBUENA, BMP ####[address] [place], [place] [address] Chloride [Moles/Vol] 105 mmol/L Normal 98-107 [facility] Comment on above: Performed By: #### G , BMP ####[address] [place], [place] [address] CO2 [Moles/Vol] 33 mmol/L High 23-31 [facility] Comment on above: Performed By: #### Massimo BALBUENA, BMP ####[address] [place], [place] [address] Creatinine [Mass/Vol] 0.78 mg/dL Normal 0.55-1.02 [facility] Comment on above: Result Comment: Test ing performed on Siemens Dimension EXL analyzer using a modified kinetic Nikos technique. Performed By: #### G , BMP ####[address] [place], [place] [address] Electrolyte Balance 4.0 mEq/L Normal 4.0-15.0 [facility] Comment on above: Performed By: #### G , BMP ####[address] [place], [place] [address] Glucose [Mass/Vol] 102 mg/dL Normal 83-110 [facility] Comment on above: Performed By: #### G , BMP ####[address] [place], [place] [address] Potassium [Moles/Vol] 4.0 mmol/L Normal 3.5-5.1 [facility] Comment on above: Performed By: #### Massimo BALBUENA, BMP ####[id number] [place], [place] [address] Sodium [Moles/Vol] 142 mmol/L Normal 136-145 [facility] Comment on above: Performed By: #### Massmio BALBUENA, BMP ####[address] [place], [place] [address] Urea nitrogen [Mass/Vol] 15 mg/dL Normal 7-18 [facility] Comment on above: Performed By: #### Massimo BALBUENA, BMP ####[address] [place], [place] [address] LABORATORYOrdered By: SYSTEM SYSTEM on 04-21-2024 Calcium [Mass/Vol] 9.2 mg/dL Normal 8.4 - 10. 2 mg/dL AO ADM SS Chloride [Moles/Vol] 105 mmol/L Normal 98 - 10 7 mmol/L AO ADM SS CO2 [Moles/Vol] 33 mmol/L High 23 - 31 mmol/L AO ADM SS Creatinine [Mass/Vol] 0.78 mg/dL Normal 0.55 - 1.02 mg/dL AO ADM SS Comment on above: Interpretive Data: T esting performed on Siemens Dimension EXL analyzer using a modified kinetic Nikos technique. Electrolyte Balance 4.0 mEq/L Normal 4.0 - 15 .0 mEq/L AO ADM SS Estimated Glomerular Filtration Rate 77 ml/min/1.73sqm Invalid Interpretation Code AO Chemistry S Comment on above: Interpretive Data: Stages of Chronic Kidney Disease (CKD) Stage Description eGFR(ml/min/1.73 sq.m.) CKD 1 Normal kidney function or >=90 normal kindney function with possible kidney damage (ex. Proteinuria) CKD 2 Kidney damage with mild loss 60-89 of kidney function CKD 3a Mild to moderate loss of kidney 45-59 function CKD 3b Moderate to severe loss of 30-44 of kindey function CKD 4 Severe loss of kidney function 15-29 CKD 5 Kidney failure <15 Note: (go live 2024) the eGFR calculation was updated to the 2020 CKD-EPI creatinine equation without a race factor to calculate the eGFR results. Glucose [Mass/Vol] 102 mg/dL Normal 83 - 110 mg/dL AO ADM SS Potassium [Moles/Vol] 4.0 mmol/L Normal 3.5 - 5.1 mmol/L AO ADM SS Sodium [Moles/Vol] 142 mmol/L Normal 136 - 145 mmol/L AO ADM SS Urea nitrogen [Mass/Vol] 15 mg/dL Normal 7 - 18 mg/dL AO ADM SS Urea nitrogen/Creatinine [Mass ratio] 19 ratio Normal 7 - 27 ratio AO ADM SS Absolute neutrophil countOrd ered By: Maryann Jackson on 04-14-2024 Neutrophils (Bld) [#/Vol] 5.3 10*3/uL 2.0-7.7 [facility] Albumin to globulin ratioOrd ered By: Maryann Jackson on 04-14-2024 Albumin/Globulin [Mass ratio] 0.9 {ratio} 0.9-2.4 [facility] Basophil percentageOrdered B y: Maryann Jackson on 04-14-2024 Basophils/100 WBC (Bld) 0.9 % 0-1 [facility] Bilirubin, totalOrdered By: Maryann Jackson on 04-14-2024 Bilirubin [Mass/Vol] 0.50 mg/dL 0.20-1.00 [facility] Comment on above: For patients on eltr ombopag therapy, use of Dimension [place] TBIL is not recommended. Blood urea nitrogen (BUN)/cr eatinine ratioOrdered By: Maryann Jackson on 04-14-2024 Urea nitrogen/Creatinine [Mass ratio] 19.7 mg/mg 10-20 [facility] CBC W/Diff, Automatedon 02-0 Absolute Lymph 1.88 X10 3/uL Normal 0.83-4.51 [facility] Comment on above: Performed By: #### L 100.0100, L500.4050 #### [facility] [address] [place], [address] Absolute Neut 5.3 X10 3/uL Normal 2.0-7.7 [facility] Comment on above: Performed By: #### L 100.0100, L500.4050 #### [facility] [address] [place], [address] Basophils/100 WBC (Bld) 0.9 % Normal 0-1 [facility] Comment on above: Performed By: #### L 100.0100, L500.4050 #### [facility] [address] [place], [address] Eosinophils/100 WBC (Bld) 4.8 % Normal 0-5 [facility] Comment on above: Performed By: #### L 100.0100, L500.4050 #### [facility] [address] [place], [address] Erythrocyte distribution width (RBC) [Ratio] 14.5 % Normal 11.6-14.6 [facility] Comment on above: Performed By: #### L 100.0100, L500.4050 #### [facility] [address] [place], [address] Hematocrit (Bld) [Volume fraction] 38.9 % Normal 37-47 [facility] Comment on above: Performed By: #### L 100.0100, L500.4050 #### [facility] [address] [place], [address] Hemoglobin (Bld) [Mass/Vol] 12.7 g/dL Normal 12.0-15.0 [facility] Comment on above: Performed By: #### L 100.0100, L500.4050 #### [facility] [address] [place], [address] IG% 0.400 Normal 0.0-0.9 [facility] Comment on above: Result Comment: IG% - Immature Granulocytes (promyelocytes, myelocytes and metamyelocytes) > 1% indicates that a LEFT SHIFT is Present. Performed By: #### L 100.0100, L500.4050 #### [facility] [address] [place], [address] Lymphocytes/100 WBC (Bld) 23.3 % Normal 19-41 [facility] Comment on above: Performed By: #### L 100.0100, L500.4050 #### [facility] [address] [place], [address] MCH (RBC) [Entitic mass] 31.0 pg Normal 27.0-32.0 [facility] Comment on above: Performed By: #### L 100.0100, L500.4050 #### [facility] [address] [place], [address] MCHC (RBC) [Mass/Vol] 32.6 g/dL Normal 32-36 [facility] Comment on above: Performed By: #### L 100.0100, L500.4050 #### [facility] [address] [place], [address] MCV (RBC) [Entitic vol] 94.9 fL Normal 81-99 [facility] Comment on above: Performed By: #### L 100.0100, L500.4050 #### [facility] [address] [place], [address] Monocytes/100 WBC (Bld) 4.8 % Normal 0-10 [facility] Comment on above: Performed By: #### L 100.0100, L500.4050 #### [facility] [address] [place], [address] Neutrophils/100 WBC (Bld) 65.8 % Normal 47-70 [facility] Comment on above: Performed By: #### L 100.0100, L500.4050 #### [facility] [address] [place], [address] Nucleated RBC (Bld) [#/Vol] 0 10*3/uL Normal 0-5 [facility] Comment on above: Performed By: #### L 100.0100, L500.4050 #### [facility] [address] [place], [address] Platelet mean volume (Bld) [Entitic vol] 13.2 fL High 6.2-12.0 [facility] Comment on above: Performed By: #### L 100.0100, L500.4050 #### [facility] [address] [place], [address] Platelets (Bld) [#/Vol] 165 10*3/uL Normal 150-450 [facility] Comment on above: Performed By: #### L 100.0100, L500.4050 #### [facility] [address] [place], [address] RBC (Bld) [#/Vol] 4.10 10*6/uL Low 4.2-5.4 [facility] Comment on above: Performed By: #### L 100.0100, L500.4050 #### [facility] [address] [place], [address] RDW SD 50.1 fl High 35.1-43.9 [facility] Comment on above: Performed By: #### L 100.0100, L500.4050 #### [facility] [address] [place], [address] WBC (Bld) [#/Vol] 8.1 10*3/uL Normal 4.4-11.0 [facility] Comment on above: Performed By: #### L 100.0100, L500.4050 #### [facility] [address] [place], [address] Carbon dioxide measurementOr dered By: Maryann Jackson on 04-14-2024 CO2 [Moles/Vol] 29.0 mmol/L 21.0-32.0 [facility] Chloride measurementOrdered By: Maryann Jackson on 04-14-2024 Chloride [Moles/Vol] 103 mmol/L 98-107 [facility] Comprehensive Metabolic Prof ilon 04-14-2024 Albumin [Mass/Vol] 3.0 g/dL Low 3.2-5.0 [facility] Comment on above: Performed By: #### L 100.0100, L500.4050 #### [facility] [address] [place], [address] Albumin/Globulin [Mass ratio] 0.9 {ratio} Normal 0.9-2.4 [facility] Comment on above: Performed By: #### L 100.0100, L500.4050 #### [facility] [address] [place], [address] ALK P 106 U/L Normal 45-117 [facility] Comment on above: Performed By: #### L 100.0100, L500.4050 #### [facility] [address] [place], [address] ALT [Catalytic activity/Vol] 17 U/L Normal 13-56 [facility] Comment on above: Performed By: #### L 100.0100, L500.4050 #### [facility] [address] [place], [address] AST [Catalytic activity/Vol] 20 U/L Normal 15-37 [facility] Comment on above: Performed By: #### L 100.0100, L500.4050 #### [facility] [address] [place], [address] Bilirubin [Mass/Vol] 0.50 mg/dL Normal 0.20-1.00 [facility] Comment on above: Result Comment: For patients on eltrombopag therapy, use of Dimension [place] TBIL is not recommended. Performed By: #### L 100.0100, L500.4050 #### [facility] [address] [place], [address] BUN/CRE 19.7 RATIO Normal 10-20 [facility] Comment on above: Performed By: #### L 100.0100, L500.4050 #### [facility] [address] [place], [address] CA,Total 8.8 mg/dL Normal 8.5-10.1 [facility] Comment on above: Performed By: #### L 100.0100, L500.4050 #### [facility] [address] [place], [address] Chloride [Moles/Vol] 103 mmol/L Normal 98-107 [facility] Comment on above: Performed By: #### L 100.0100, L500.4050 #### [facility] [address] [place], [address] CO2 [Moles/Vol] 29.0 mmol/L Normal 21.0-32.0 [facility] Comment on above: Performed By: #### L 100.0100, L500.4050 #### [facility] [address] [place], [address] Creatinine [Mass/Vol] 0.71 mg/dL Normal 0.55-1.02 [facility] Comment on above: Result Comment: The validity of the calculated GFR GFRAA in patients over 70 years has not been determined. Clinical correlation is essential. Performed By: #### L 100.0100, L500.4050 #### [facility] [address] [place], [address] EST GFR - AA 101 mL/min Normal >60 [facility] Comment on above: Result Comment: Afri can Nigerian GFR Calc Performed By: #### L 100.0100, L500.4050 #### [facility] [address] [place], [address] GAP 7 Normal 5-15 [facility] Comment on above: Performed By: #### L 100.0100, L500.4050 #### [facility] [address] [place], [address] GFR/1.73 sq M.predicted among non-blacks MDRD (S/P/Bld) [Vol rate/Area] 84 mL/min/{1.73_m2} Normal >60 [facility] Comment on above: Result Comment: Non- GFR Calc Performed By: #### L 100.0100, L500.4050 #### [facility] [address] [place], [address] Globulin (S) [Mass/Vol] 3.5 g/dL Normal 2.2-4.2 [facility] Comment on above: Performed By: #### L 100.0100, L500.4050 #### [facility] [address] [place], [address] Glucose [Mass/Vol] 95 mg/dL Normal 74-106 [facility] Comment on above: Performed By: #### L 100.0100, L500.4050 #### [facility] [address] [place], [address] Potassium [Moles/Vol] 3.2 mmol/L Low 3.5-5.1 [facility] Comment on above: Performed By: #### L 100.0100, L500.4050 #### [facility] [address] [place], [address] Sodium [Moles/Vol] 140 mmol/L Normal 136-145 [facility] Comment on above: Performed By: #### L 100.0100, L500.4050 #### [facility] [address] [place], [address] T PROT 6.5 g/dL Normal 6.4-8.2 [facility] Comment on above: Performed By: #### L 100.0100, L500.4050 #### [facility] [address] [place], [address] Urea nitrogen [Mass/Vol] 14 mg/dL Normal 7-18 [facility] Comment on above: Performed By: #### L 100.0100, L500.4050 #### [facility] [address] [place], [address] Eosinophil percentageOrdered By: Maryann Jackson on 04-14-2024 Eosinophils/100 WBC (Bld) 4.8 % 0-5 [facility] Erythrocyte distribution wid th (RBC) [Ratio]Ordered By: Maryann Jackson on 04-14-2024 Erythrocyte distribution width (RBC) [Entitic vol] 50.1 fL High 35.1-43.9 [facility] Erythrocyte distribution wid th ratioOrdered By: Maryann Jackson on 04-14-2024 Erythrocyte distribution width (RBC) [Ratio] 14.5 % 11.6-14.6 [facility] Estimated glomerular filtrat ion rate (GFR) AmericanOrdered By: Maryann Jackson on 04-14-2024 Estimated GFR (MDRD) Amer 101 mL/min >60 [facility] Comment on above: GFR Calc Glomerular filtration rate ( GFR) estimationOrdered By: Maryann Jackson on 04-14-2024 Estimated GFR (MDRD) Non-Af Amer 84 mL/min >60 [facility] Comment on above: Non- GFR Calc Glucose measurementOrdered B y: Maryann Jackson on 04-14-2024 Glucose [Mass/Vol] 95 mg/dL 74-106 [facility] Hematocrit Auto (Bld) [Volum e fraction]Ordered By: Maryann Jackson on 04-14-2024 Hematocrit (Bld) [Volume fraction] 38.9 % 37-47 [facility] Hemoglobin measurementOrdere d By: Maryann Jackson on 04-14-2024 Hemoglobin (Bld) [Mass/Vol] 12.7 g/dL 12.0-15.0 [facility] Immature granulocytes/100 WB C Auto (Bld)Ordered By: Maryann Jackson on 04-14-2024 Immature granulocytes/100 WBC (Bld) 0.400 % 0.0-0.9 [facility] Comment on above: IG% - Immature Granu locytes (promyelocytes, myelocytes and metamyelocytes) > 1% indicates that a LEFT SHIFT is Present. Laboratory - Chemistry and C hemistry - challengeOrdered By: Maryann Jackson on 04-14-2024 AST [Catalytic activity/Vol] 20 U/L 15-37 [facility] Lymphocytes Auto (Unsp spec) [#/Vol]Ordered By: Maryann Jackson on 04-14-2024 Lymphocytes (Bld) [#/Vol] 1.88 10*3/uL 0.83-4.51 [facility] Lymphocytes/100 WBC Auto (Un sp spec)Ordered By: Maryann Jackson on 04-14-2024 Lymphocytes/100 WBC (Bld) 23.3 % 19-41 [facility] MCV (mean corpuscular volume ) determinationOrdered By: Maryann Jackson on 04-14-2024 MCV (RBC) [Entitic vol] 94.9 fL 81-99 [facility] Mean corpuscular hemoglobin (MCH) determinationOrdered By: Maryann Jackson on 04-14-2024 MCH (RBC) [Entitic mass] 31.0 pg 27.0-32.0 [facility] Mean corpuscular hemoglobin concentration (MCHC) determinationOrdered By: Maryann Jackson on 04-14-2024 MCHC (RBC) [Mass/Vol] 32.6 g/dL 32-36 [facility] Mean platelet volume determi nationOrdered By: Maryann Jackson on 04-14-2024 Platelet mean volume (Bld) [Entitic vol] 13.2 fL High 6.2-12.0 [facility] Monocyte percentageOrdered B y: Maryann Jackson on 04-14-2024 Monocytes/100 WBC (Bld) 4.8 % 0-10 [facility] Neutrophil percentageOrdered By: Maryann Jackson on 04-14-2024 Neutrophils/100 WBC (Bld) 65.8 % 47-70 [facility] Nucleated red blood cell per centageOrdered By: Maryann Jackson on 04-14-2024 Nucleated RBC/100 WBC (Bld) [Ratio] 0 % 0-5 [facility] Platelet countOrdered By: Ant Jackson on 04-14-2024 Platelets (Bld) [#/Vol] 165 10*3/uL 150-450 [facility] Potassium measurementOrdered By: Maryann Jackson on 04-14-2024 Potassium [Moles/Vol] 3.2 mmol/L Low 3.5-5.1 [facility] RBC Auto (Bld) [#/Vol]Ordere d By: Maryann Jackson on 04-14-2024 RBC (Bld) [#/Vol] 4.10 10*6/uL Low 4.2-5.4 [facility] Serum anion gap measurementO rdered By: Maryann Jackson on 04-14-2024 Anion gap [Moles/Vol] 7 mmol/L 5-15 [facility] Serum globulin measurementOr dered By: Maryann Jackson on 04-14-2024 Globulin (S) [Mass/Vol] 3.5 g/dL 2.2-4.2 [facility] Serum or plasma alanine chandler otransferase (ALT) measurementOrdered By: Maryann Jackson on 04-14-2024 ALT [Catalytic activity/Vol] 17 U/L 13-56 [facility] Serum or plasma albumin kezia urement (mass/volume)Ordered By: Maryann Jackson on 04-14-2024 Albumin [Mass/Vol] 3.0 g/dL Low 3.2-5.0 [facility] Serum or plasma alkaline cory sphatase measurementOrdered By: Maryann Jackson on 04-14-2024 ALP [Catalytic activity/Vol] 106 U/L 45-117 [facility] Serum or plasma calcium kezia urement (mass/volume)Ordered By: Maryann Jackson on 04-14-2024 Calcium [Mass/Vol] 8.8 mg/dL 8.5-10.1 [facility] Serum or plasma creatinine m easurement (mass/volume)Ordered By: Maryann Jackson on 04-14-2024 Creatinine [Mass/Vol] 0.71 mg/dL 0.55-1.02 [facility] Comment on above: The validity of the calculated GFR & GFRAA in patients over 70 years has not been determined. Clinical correlation is essential. Serum or plasma urea nitroge n measurement (mass/volume)Ordered By: Maryann Jackson on 04-14-2024 Urea nitrogen [Mass/Vol] 14 mg/dL 7-18 [facility] Sodium levelOrdered By: Leilani Jackson on 04-14-2024 Sodium [Moles/Vol] 140 mmol/L 136-145 [facility] Total proteinOrdered By: Pratima Jackson on 04-14-2024 Protein [Mass/Vol] 6.5 g/dL 6.4-8.2 [facility] White blood cell (WBC) count Ordered By: Maryann Jackson on 04-14-2024 WBC (Bld) [#/Vol] 8.1 10*3/uL 4.4-11.0 [facility] PT D/C Summary (1)on 02-22- 024 PT D/C Summary (1) [facility] Physical Therapy [address] [place] [address] / REHABILITATION SERVICES DISCHARGE SUMMARY MR#: [id number] Acct: [id number] Name: CIARA SAWYER I Rep #: [id number] : 1945 78 From: Keven Antunez DPT, OCS, CSCS Referring Dr.: Dr. Frank Morales, DO Status: REG R CR Insurance: MEDICARE PART A B [employer] LIFE Discharge Summary D/C summary: It has been my pleasure to treat CIARA SAWYER referred by Dr. Frank Morales DO, with the diagnosis of Leg weakness for a total of 6 visit(s). Discharge Date: 02/23/24 Please see the following information for a summary of their discharge status. Subjective Subjective: Pain much better. Can get around house without cane at times. Legs slowly getting stronger. Doing exercises at home and they challenge her alittle bit. To doctor in March. Pain Back and body: Pain Intensity (Out of 10): 3 Overall Improvement % Improvement: 75 Objective Objective/Function: +2 on 30 SSTS +3 FGA +12 LEFS Walking without aD in clinic I, steps with either one rail. Walking slow but steady . Goals Goal 1:: I appropriate HEP for LE flex, core and postural adn LE strength via HEP Goal Progress: Goal Met Goal 2:: 12 on 30 SSTS and 22 on FGa to limit fall r isk Goal Progress: Goal Met Goal 3:: Pt feel 50% better in overall pain and mobility Goal Progress: 75% Goal 4:: LEFS score 45 Goal Progress: Progressing Plan Plan: d/c to HEP D/C Information d/c sentence: If there are questions or concerns regarding this patient's physical therapy, please feel free to call me at [phone]. Thank you for the referral of this patient. Sincerely, Keven Antunez, DPT, OCS, CSCS Balance/Gait/Functiona l tests Balance/Special Test Scores Functional Gait Assessment Score: 23 % Disability: 23.3400 CATSIB Score (Max score 120 seconds): 120 Lower Extremity Functional Score: 42 TUG Test Time Seconds: 13 Tug Test: <20 sec.=mostly independent 30 Second Chair Rise Test Seconds: 12 Improvement % Improvement: 75 02/23/24 1115 CC: Dr. Frank Morales DO EBG Signed Normal [facility] CBC W/Diff, Automatedon 12-0 Absolute Lymph 2.33 X10 3/uL Normal 0.83-4.51 [facility] Comment on above: Performed By: #### L 100.0100, L300.3900, L501.4021, L500.2500 #### [facility] [address] [place], [address] Absolute Neut 12.0 X10 3/uL High 2.0-7.7 [facility] Comment on above: Performed By: #### L 100.0100, L300.3900, L501.4021, L500.2500 #### [facility] [address] [place], [address] Basophils/100 WBC (Bld) 0.3 % Normal 0-1 [facility] Comment on above: Performed By: #### L 100.0100, L300.3900, L501.4021, L500.2500 #### [facility] [address] [place], [address] Eosinophils/100 WBC (Bld) 0.4 % Normal 0-5 [facility] Comment on above: Performed By: #### L 100.0100, L300.3900, L501.4021, L500.2500 #### [facility] [address] [place], [address] Erythrocyte distribution width (RBC) [Ratio] 14.3 % Normal 11.6-14.6 [facility] Comment on above: Performed By: #### L 100.0100, L300.3900, L501.4021, L500.2500 #### [facility] [address] [place], [address] Hematocrit (Bld) [Volume fraction] 41.0 % Normal 37-47 [facility] Comment on above: Performed By: #### L 100.0100, L300.3900, L501.4021, L500.2500 #### [facility] [address] [place], [address] Hemoglobin (Bld) [Mass/Vol] 13.3 g/dL Normal 12.0-15.0 [facility] Comment on above: Performed By: #### L 100.0100, L300.3900, L501.4021, L500.2500 #### [facility] [address] [place], [address] IG% 0.600 Normal 0.0-0.9 [facility] Comment on above: Result Comment: IG% - Immature Granulocytes (promyelocytes, myelocytes and metamyelocytes) > 1% indicates that a LEFT SHIFT is Present. Performed By: #### L 100.0100, L300.3900, L501.4021, L500.2500 #### [facility] [address] [place], [address] Lymphocytes/100 WBC (Bld) 15.0 % Low 19-41 [facility] Comment on above: Performed By: #### L 100.0100, L300.3900, L501.4021, L500.2500 #### [facility] [address] [place], [address] MCH (RBC) [Entitic mass] 30.0 pg Normal 27.0-32.0 [facility] Comment on above: Performed By: #### L 100.0100, L300.3900, L501.4021, L500.2500 #### [facility] [address] [place], [address] MCHC (RBC) [Mass/Vol] 32.4 g/dL Normal 32-36 [facility] Comment on above: Performed By: #### L 100.0100, L300.3900, L501.4021, L500.2500 #### [facility] [address] [place], [address] MCV (RBC) [Entitic vol] 92.6 fL Normal 81-99 [facility] Comment on above: Performed By: #### L 100.0100, L300.3900, L501.4021, L500.2500 #### [facility] [address] [place], [address] Monocytes/100 WBC (Bld) 6.7 % Normal 0-10 [facility] Comment on above: Performed By: #### L 100.0100, L300.3900, L501.4021, L500.2500 #### [facility] [address] [place], [address] Neutrophils/100 WBC (Bld) 77.0 % High 47-70 [facility] Comment on above: Performed By: #### L 100.0100, L300.3900, L501.4021, L500.2500 #### [facility] [address] [place], [address] Nucleated RBC (Bld) [#/Vol] 0 10*3/uL Normal 0-5 [facility] Comment on above: Performed By: #### L 100.0100, L300.3900, L501.4021, L500.2500 #### [facility] [address] [place], [address] Platelet mean volume (Bld) [Entitic vol] 12.9 fL High 6.2-12.0 [facility] Comment on above: Performed By: #### L 100.0100, L300.3900, L501.4021, L500.2500 #### [facility] [address] [place], [address] Platelets (Bld) [#/Vol] 213 10*3/uL Normal 150-450 [facility] Comment on above: Performed By: #### L 100.0100, L300.3900, L501.4021, L500.2500 #### [facility] [address] [place], [address] RBC (Bld) [#/Vol] 4.43 10*6/uL Normal 4.2-5.4 [facility] Comment on above: Performed By: #### L 100.0100, L300.3900, L501.4021, L500.2500 #### [facility] [address] [place], [address] RDW SD 48.0 fl High 35.1-43.9 [facility] Comment on above: Performed By: #### L 100.0100, L300.3900, L501.4021, L500.2500 #### [facility] [address] [place], [address] WBC (Bld) [#/Vol] 15.6 10*3/uL High 4.4-11.0 [facility] Comment on above: Performed By: #### L 100.0100, L300.3900, L501.4021, L500.2500 #### [facility] [address] [place], [address] Comprehensive Metabolic Prof ilon 02-08-2024 Albumin [Mass/Vol] 3.0 g/dL Low 3.2-5.0 [facility] Comment on above: Performed By: #### L 100.0100, L300.3900, L501.4021, L500.2500 #### [facility] [address] [place], [address] Albumin/Globulin [Mass ratio] 0.9 {ratio} Normal 0.9-2.4 [facility] Comment on above: Performed By: #### L 100.0100, L300.3900, L501.4021, L500.2500 #### [facility] [address] [place], [address] ALK P 119 U/L High 45-117 [facility] Comment on above: Performed By: #### L 100.0100, L300.3900, L501.4021, L500.2500 #### [facility] [address] [place], [address] ALT [Catalytic activity/Vol] 18 U/L Normal 13-56 [facility] Comment on above: Performed By: #### L 100.0100, L300.3900, L501.4021, L500.2500 #### [facility] [address] [place], [address] AST [Catalytic activity/Vol] 13 U/L Low 15-37 [facility] Comment on above: Performed By: #### L 100.0100, L300.3900, L501.4021, L500.2500 #### [facility] [address] [place], [address] Bilirubin [Mass/Vol] 0.60 mg/dL Normal 0.20-1.00 [facility] Comment on above: Result Comment: For patients on eltrombopag therapy, use of Dimension [place] TBIL is not recommended. Performed By: #### L 100.0100, L300.3900, L501.4021, L500.2500 #### [facility] [address] [place], [address] BUN/CRE 19.7 RATIO Normal 10-20 [facility] Comment on above: Performed By: #### L 100.0100, L300.3900, L501.4021, L500.2500 #### [facility] [address] [place], [address] CA,Total 9.2 mg/dL Normal 8.5-10.1 [facility] Comment on above: Performed By: #### L 100.0100, L300.3900, L501.4021, L500.2500 #### [facility] [address] [place], [address] Chloride [Moles/Vol] 104 mmol/L Normal 98-107 [facility] Comment on above: Performed By: #### L 100.0100, L300.3900, L501.4021, L500.2500 #### [facility] [address] [place], [address] CO2 [Moles/Vol] 28.0 mmol/L Normal 21.0-32.0 [facility] Comment on above: Performed By: #### L 100.0100, L300.3900, L501.4021, L500.2500 #### [facility] [address] [place], [address] Creatinine [Mass/Vol] 0.81 mg/dL Normal 0.55-1.02 [facility] Comment on above: Result Comment: The validity of the calculated GFR GFRAA in patients over 70 years has not been determined. Clinical correlation is essential. Performed By: #### L 100.0100, L300.3900, L501.4021, L500.2500 #### [facility] [address] [place], [address] EST GFR - AA 87 mL/min Normal >60 [facility] Comment on above: Result Comment: Afri can Nigerian GFR Calc Performed By: #### L 100.0100, L300.3900, L501.4021, L500.2500 #### [facility] [address] [place], [address] GAP 7 Normal 5-15 [facility] Comment on above: Performed By: #### L 100.0100, L300.3900, L501.4021, L500.2500 #### [facility] [address] [place], [address] GFR/1.73 sq M.predicted among non-blacks MDRD (S/P/Bld) [Vol rate/Area] 72 mL/min/{1.73_m2} Normal >60 [facility] Comment on above: Result Comment: Non- GFR Calc Performed By: #### L 100.0100, L300.3900, L501.4021, L500.2500 #### [facility] [address] [place], [address] Globulin (S) [Mass/Vol] 3.5 g/dL Normal 2.2-4.2 [facility] Comment on above: Performed By: #### L 100.0100, L300.3900, L501.4021, L500.2500 #### [facility] [address] [place], [address] Glucose [Mass/Vol] 67 mg/dL Low 74-106 [facility] Comment on above: Performed By: #### L 100.0100, L300.3900, L501.4021, L500.2500 #### [facility] [address] [place], [address] Potassium [Moles/Vol] 3.5 mmol/L Normal 3.5-5.1 [facility] Comment on above: Performed By: #### L 100.0100, L300.3900, L501.4021, L500.2500 #### [facility] [address] [place], [address] Sodium [Moles/Vol] 139 mmol/L Normal 136-145 [facility] Comment on above: Performed By: #### L 100.0100, L300.3900, L501.4021, L500.2500 #### [facility] [address] [place], [address] T PROT 6.5 g/dL Normal 6.4-8.2 [facility] Comment on above: Performed By: #### L 100.0100, L300.3900, L501.4021, L500.2500 #### [facility] [address] [place], [address] Urea nitrogen [Mass/Vol] 16 mg/dL Normal 7-18 [facility] Comment on above: Performed By: #### L 100.0100, L300.3900, L501.4021, L500.2500 #### [facility] [address] [place], [address] Thyroid Stim Hormone (TSH)on 02-08-2024 TSH 0.087 uIU/mL Low 0.358-3.740 [facility] Comment on above: Performed By: #### L 100.0100, L300.3900, L501.4021, L500.2500 #### [facility] [address] [place], [place], [address] Inital Evaluation (1) - PTon 01-26-2024 Inital Evaluation (1) - PT [facility] [address] [place] [address] / REHABILITATION SERVICES INITIAL EVALUATION MR#: [id number] Acct: [id number] Name: CIARA SAWYER I Rep #: [id number] : 1945 78 From: Keven Antunez DPT, OCS, CSCS Referring Dr.: Dr. Frank Morales DO Status: REG R CR Insurance: MEDICARE PART A B WPS FOR LIFE Patient's Visit Information Visit Information Visit Information: CIARA SAWYER is a 78 year old F referred to Physical Therapy by Dr. Frank Morales DO with a diagnosis of Leg weakness. Date of Evaluation: 01/26/24 Physical Therapist: Keven Antunez DPT, OCS, CSCS Visit Plan Frequency: 2x /Week Duration: 4-6 Weeks Plan: 2x/week for 4-6 weeks: reviewed squats and hip abduction standing the first day and recommend progress to 3 sets Please teach core strength mat to I, then HS and gastroc stretch to HEP, then standing LE, core, back and postural strength to HEP. Ensure challenge and I. Subjective Subjective: Normal f/u with doctor and told her about stumbling and sent for balance. Has OA everywhere and painful all over, uses some creams voltarin and started to see Manuel who put her on an M medication that she will start today. She stumbled 2 weeks ago going out front door where there is one step. Uses cane to get around just lost her balance and twisted L knee but did not fall to the ground. No other incidence like that. No falls lately in over a year. Feels like balance is OK. Uses fecane due to weakness sin legs. Used to work out at to get stronger for a month or two with a friend. Hasn't felt like doing that lately but did feel stronger. Does not need cane in the house. Has walker that she does not use. sleep is OK iwth nadira. Employed: none Lives with friend: one story house with one step with hold. Basic aDLs dress self , bathroom self, shower with walk in shower with chair that she does not use. Spends day cleaning cooking. Watches TV. Pain Back and body: Pain Intensity (Out of 10): 0 Pain Intensity Range: 0 and 5 Objective Objective: Walks back to PT with cane in R UE mod I but slow and labored trasntiions and unstable pelvis. Sit to stand with UE I, stand to sit , I, bed I. LB AROM mod deficits all directions with pain with ext and flexion. LE AROM is WFL b ut hip extension 5 degrees B and weak. knees and ankles WFL. Has tightness in gastroc and HS at -30 90/90 test. Quads also tight at 90 flexion with hips in neutral. strength core 3, hip abd and ext and flexion 3/5, knee flex and ext 3+, and ankles 4-. reflexes 2/3 patella and achilles Sensation LE WNL to gross light touch B coordination to reciprocal toe adn heel tap is poor. balance is fair but hard time moving due to weakness and pain in joints and LB. Uses back and gluts to exit chair vs quads. Balance/Special Test Scores Functional Gait Assessment Score: 20 % Disability: 33.3400 CATSIB Score (Max score 120 seconds): 120 Lower Extremity Functional Score: 30 TUG Test Time Seconds: 13 30 Second Chair Rise Test Seconds: 10 Goals Goal 1:: I appropriate HEP for LE flex, core and postural adn LE strength via HEP Goal Time Frame: 4-6 Weeks Goal 2:: 12 on 30 SSTS and 22 on FGa to limit fall r isk Goal Time Frame: 4-6 Weeks Goal 3:: Pt feel 50% better in overall pain and mobility Goal Time Frame: 4-6 Weeks Goal 4:: LEFS score 45 Goal Time Frame: 4-6 Weeks Rehabilitation Potential Physical Therapy Diagnosis: leg weakness and tightness effecting safe function Rehabilitation Potential: Fair Anticipated Interventions Patient/Client Instruction: Educate patient on: Condition and Plan of Care For the Purpose of:: To decrease pain, To increase ROM, To improve nutrient delivery to tissue, To improve muscle performance and motor function and To increase tolerance to activity/condition/pos ition Therapeutic Exercise to Include: Strength training, Balance training, Flexibilty training, Gait and locomotor training and Active ROM For the Purpose of:: To decrease pain, To increase ROM, To improve nutrient delivery to tissue, To improve muscle performance and motor function, To increase tolerance to activity/condition/pos ition, To improve ability of physical actions for home/community/work/le isure, To improve gait and locomotor functions and To improve safety Text: Thank you for the opportunity to evaluate your patient. For Medicare and Medicare HMO plans, please review the plan of care and approve it. It will need to be FAXED BACK to us at [phone] for Medicare purposes. For Medicare only, by signing this I certify the plan of care. Please let me know if there are questions or concerns regarding this plan of care. Physician Signature: Date:__ 01/26/24 1140 (more content not included)... Normal [facility] XR FOOT MINIMUM 3 VIEWS [facility] 01-19-2024 XR FOOT MINIMUM 3 VIEWS RIGHT ORIGINAL EXAMINATION: THREE XRAY VIEWS OF THE RIGHT FOOT 01/18/2024 2:56 pm COMPARISON: None. HISTORY: ORDERING SYSTEM PROVIDED HISTORY: Reason for Exam: right foot pain after fall FINDINGS: There is no acute fracture or dislocation. There is hammertoe deformity of the 2nd through 5th digit, small with resulting osseous overlap limiting evaluation of the middle and distal phalanges. Alignment is anatomic. There is mild 1st metatarsophalangeal joint space narrowing. bones are diffusely demineralized there is a moderately sized calcaneal spur.. No focal soft tissue abnormality. IMPRESSION: 1. No acute fracture or dislocation. 2. Osteopenia. Interpreted by: Shanae Wall Preliminary Report By: Shanae Wall Electronically signed By Shanae Wall Dictated Date: 01/19/2024 6:56:17 AM Prelim Date: 01/19/2024 6:58:01 AM Sign Date: 01/19/2024 6:58:01 AM Ordering Provider: FRANK Salazar [facility] XR KNEE THREE VIEWS RIGHTon 01-19-2024 XR KNEE THREE VIEWS RIGHT ORIGINAL EXAMINATION: THREE XRAY VIEWS OF THE RIGHT KNEE 01/18/2024 2:54 pm COMPARISON: March 12, 2023 HISTORY: ORDERING SYSTEM PROVIDED HISTORY: Reason for Exam: right knee pain after fall FINDINGS: Patient is status post cemented right total knee arthroplasty. Alignment is unchanged. There is no acute periprosthetic fracture. No periprosthetic lucency to suggest hardware loosening or micro motion. Bones are well mineralized. IMPRESSION: 1. Status post right total knee arthroplasty, with maintained alignment. 2. No acute periprosthetic fracture. Interpreted by: Shanae Wall Preliminary Report By: Shanae Wall Electronically signed By Shanae Wall Dictated Date: 01/19/2024 6:54:04 AM Prelim Date: 01/19/2024 6:55:01 AM Sign Date: 01/19/2024 6:55:01 AM Ordering Provider: FRANK Salazar [facility] CBC W/Diff, Automatedon 09-3 0-2023 Absolute Lymph 1.81 X10 3/uL Normal 0.83-4.51 [facility] Comment on above: Performed By: #### L 100.0100, L300.3900, L501.4021, L500.2500 #### [facility] [address] [place], [address] Absolute Neut 5.2 X10 3/uL Normal 2.0-7.7 [facility] Comment on above: Performed By: #### L 100.0100, L300.3900, L501.4021, L500.2500 #### [facility] [address] [place], [address] Basophils/100 WBC (Bld) 0.6 % Normal 0-1 [facility] Comment on above: Performed By: #### L 100.0100, L300.3900, L501.4021, L500.2500 #### [facility] [address] [place], [address] Eosinophils/100 WBC (Bld) 3.9 % Normal 0-5 [facility] Comment on above: Performed By: #### L 100.0100, L300.3900, L501.4021, L500.2500 #### [facility] [address] [place], [address] Erythrocyte distribution width (RBC) [Ratio] 13.0 % Normal 11.6-14.6 [facility] Comment on above: Performed By: #### L 100.0100, L300.3900, L501.4021, L500.2500 #### [facility] [address] [place], [address] Hematocrit (Bld) [Volume fraction] 41.6 % Normal 37-47 [facility] Comment on above: Performed By: #### L 100.0100, L300.3900, L501.4021, L500.2500 #### [facility] [address] [place], [address] Hemoglobin (Bld) [Mass/Vol] 13.3 g/dL Normal 12.0-15.0 [facility] Comment on above: Performed By: #### L 100.0100, L300.3900, L501.4021, L500.2500 #### [facility] [address] [place], [address] IG% 0.200 Normal 0.0-0.9 [facility] Comment on above: Result Comment: IG% - Immature Granulocytes (promyelocytes, myelocytes and metamyelocytes) > 1% indicates that a LEFT SHIFT is Present. Performed By: #### L 100.0100, L300.3900, L501.4021, L500.2500 #### [facility] [address] [place], [address] Lymphocytes/100 WBC (Bld) 22.6 % Normal 19-41 [facility] Comment on above: Performed By: #### L 100.0100, L300.3900, L501.4021, L500.2500 #### [facility] [address] [place], [address] MCH (RBC) [Entitic mass] 29.6 pg Normal 27.0-32.0 [facility] Comment on above: Performed By: #### L 100.0100, L300.3900, L501.4021, L500.2500 #### [facility] [address] [place], [address] MCHC (RBC) [Mass/Vol] 32.0 g/dL Normal 32-36 [facility] Comment on above: Performed By: #### L 100.0100, L300.3900, L501.4021, L500.2500 #### [facility] [address] [place], [address] MCV (RBC) [Entitic vol] 92.7 fL Normal 81-99 [facility] Comment on above: Performed By: #### L 100.0100, L300.3900, L501.4021, L500.2500 #### [facility] [address] [place], [address] Monocytes/100 WBC (Bld) 7.6 % Normal 0-10 [facility] Comment on above: Performed By: #### L 100.0100, L300.3900, L501.4021, L500.2500 #### [facility] [address] [place], [address] Neutrophils/100 WBC (Bld) 65.1 % Normal 47-70 [facility] Comment on above: Performed By: #### L 100.0100, L300.3900, L501.4021, L500.2500 #### [facility] [address] [place], [address] Nucleated RBC (Bld) [#/Vol] 0 10*3/uL Normal 0-5 [facility] Comment on above: Performed By: #### L 100.0100, L300.3900, L501.4021, L500.2500 #### [facility] [address] [place], [address] Platelet mean volume (Bld) [Entitic vol] 12.6 fL High 6.2-12.0 [facility] Comment on above: Performed By: #### L 100.0100, L300.3900, L501.4021, L500.2500 #### [facility] [address] [place], [address] Platelets (Bld) [#/Vol] 184 10*3/uL Normal 150-450 [facility] Comment on above: Performed By: #### L 100.0100, L300.3900, L501.4021, L500.2500 #### [facility] [address] [place], [address] RBC (Bld) [#/Vol] 4.49 10*6/uL Normal 4.2-5.4 [facility] Comment on above: Performed By: #### L 100.0100, L300.3900, L501.4021, L500.2500 #### [facility] [address] [place], [address] RDW SD 44.0 fl High 35.1-43.9 [facility] Comment on above: Performed By: #### L 100.0100, L300.3900, L501.4021, L500.2500 #### [facility] [address] [place], [address] WBC (Bld) [#/Vol] 8.0 10*3/uL Normal 4.4-11.0 [facility] Comment on above: Performed By: #### L 100.0100, L300.3900, L501.4021, L500.2500 #### [facility] [address] [place], [address] CRPon 12-06-2023 C-REACTIVE PROT 7.35 mg/L High 0.0-3.0 [facility] Comment on above: Result Comment: C-Re active Protein (CRP) provides useful information for the diagnosis, therapy and monitoring of inflammatory processes and associated diseases. For the evaluation of Relative Risk for Cardiovascular Disease, a High Sensitivity CRP (HSCRP) should be ordered. Performed By: #### L 100.0100, L300.3900, L501.4021, L500.2500 #### [facility] [address] [place], [address] Comprehensive Metabolic Prof ilon 12-06-2023 Albumin [Mass/Vol] 3.1 g/dL Low 3.2-5.0 [facility] Comment on above: Performed By: #### L 100.0100, L300.3900, L501.4021, L500.2500 #### [facility] [address] [place], [address] Albumin/Globulin [Mass ratio] 0.8 {ratio} Low 0.9-2.4 [facility] Comment on above: Performed By: #### L 100.0100, L300.3900, L501.4021, L500.2500 #### [facility] [address] [place], [address] ALK P 111 U/L Normal 45-117 [facility] Comment on above: Performed By: #### L 100.0100, L300.3900, L501.4021, L500.2500 #### [facility] [address] [place], [address] ALT [Catalytic activity/Vol] 14 U/L Normal 13-56 [facility] Comment on above: Performed By: #### L 100.0100, L300.3900, L501.4021, L500.2500 #### [facility] [address] [place], [address] AST [Catalytic activity/Vol] 15 U/L Normal 15-37 [facility] Comment on above: Performed By: #### L 100.0100, L300.3900, L501.4021, L500.2500 #### [facility] [address] [place], [address] Bilirubin [Mass/Vol] 0.50 mg/dL Normal 0.20-1.00 [facility] Comment on above: Result Comment: For patients on eltrombopag therapy, use of Dimension [place] TBIL is not recommended. Performed By: #### L 100.0100, L300.3900, L501.4021, L500.2500 #### [facility] [address] [place], [address] BUN/CRE 14.4 RATIO Normal 10-20 [facility] Comment on above: Performed By: #### L 100.0100, L300.3900, L501.4021, L500.2500 #### [facility] [address] [place], [address] CA,Total 9.2 mg/dL Normal 8.5-10.1 [facility] Comment on above: Performed By: #### L 100.0100, L300.3900, L501.4021, L500.2500 #### [facility] [address] [place], [address] Chloride [Moles/Vol] 104 mmol/L Normal 98-107 [facility] Comment on above: Performed By: #### L 100.0100, L300.3900, L501.4021, L500.2500 #### [facility] [address] [place], [address] CO2 [Moles/Vol] 31.0 mmol/L Normal 21.0-32.0 [facility] Comment on above: Performed By: #### L 100.0100, L300.3900, L501.4021, L500.2500 #### [facility] [address] [place], [address] Creatinine [Mass/Vol] 0.90 mg/dL Normal 0.55-1.02 [facility] Comment on above: Result Comment: The validity of the calculated GFR GFRAA in patients over 70 years has not been determined. Clinical correlation is essential. Performed By: #### L 100.0100, L300.3900, L501.4021, L500.2500 #### [facility] [address] [place], [address] EST GFR - AA 77 mL/min Normal >60 [facility] Comment on above: Result Comment: Afri can Nigerian GFR Calc Performed By: #### L 100.0100, L300.3900, L501.4021, L500.2500 #### [facility] [address] [place], [address] GAP 4 Low 5-15 [facility] Comment on above: Performed By: #### L 100.0100, L300.3900, L501.4021, L500.2500 #### [facility] [address] [place], [address] GFR/1.73 sq M.predicted among non-blacks MDRD (S/P/Bld) [Vol rate/Area] 64 mL/min/{1.73_m2} Normal >60 [facility] Comment on above: Result Comment: Non- GFR Calc Performed By: #### L 100.0100, L300.3900, L501.4021, L500.2500 #### [facility] [address] [place], [address] Globulin (S) [Mass/Vol] 3.7 g/dL Normal 2.2-4.2 [facility] Comment on above: Performed By: #### L 100.0100, L300.3900, L501.4021, L500.2500 #### [facility] [address] [place], [address] Glucose [Mass/Vol] 115 mg/dL High 74-106 [facility] Comment on above: Result Comment: Fast ing Glucose result from 100 to 125 mg/dL suggests IMPAIRED HOMEOSTASIS per A.D.A. criteria. Performed By: #### L 100.0100, L300.3900, L501.4021, L500.2500 #### [facility] [address] [place], [address] Potassium [Moles/Vol] 3.4 mmol/L Low 3.5-5.1 [facility] Comment on above: Performed By: #### L 100.0100, L300.3900, L501.4021, L500.2500 #### [facility] [address] [place], [address] Sodium [Moles/Vol] 140 mmol/L Normal 136-145 [facility] Comment on above: Performed By: #### L 100.0100, L300.3900, L501.4021, L500.2500 #### [facility] [address] [place], [address] T PROT 6.8 g/dL Normal 6.4-8.2 [facility] Comment on above: Performed By: #### L 100.0100, L300.3900, L501.4021, L500.2500 #### [facility] [address] [place], [address] Urea nitrogen [Mass/Vol] 13 mg/dL Normal 7-18 [facility] Comment on above: Performed By: #### L 100.0100, L300.3900, L501.4021, L500.2500 #### [facility] [address] [place], [address] EXAGENon 12-06-2023 EXAGEN MAILED SPECIMEN Normal [facility] Comment on above: Performed By: #### L 100.0100, L300.3900, L501.4021, L500.2500 #### [facility] [address] [place], [address] Erythrocyte Sed Rateon 12-05 SED RATE 15 mm/hr Normal 0-30 [facility] Comment on above: Performed By: #### L 100.0100, L300.3900, L501.4021, L500.2500 #### [facility] [address] [facility] [address] Hepatitis B Surface Antibody on 12-06-2023 HEP B Surf Ab Non-Reactive Normal [facility] Comment on above: Result Comment: Non Reactive: Inconsistent with immunity less than <10 mIU/mL Reactive: Consistent with immunity greater than or equal to 10 mIU/mL Performed By: #### L 100.0100, L300.3900, L501.4021, L500.2500 #### [facility] [address] [facility] [address] Hepatitis B Surface Antigeno n 12-06-2023 HEP B Surf Ag Non-Reactive Normal Nonreactive [facility] Comment on above: Performed By: #### L 100.0100, L300.3900, L501.4021, L500.2500 #### [facility] [address] [place], [address] Hepatitis C Antibodyon 12-05 Hepatitis C AB Non-Reactive Normal Nonreactive [facility] Comment on above: Result Comment: Non Reactive: < 0.8 Equivocal: >/= 0.8 to < 1.0 Reactive: >/= 1.0 The [facility] requires that a reactive/equivocal HCV antibody result be sent out for confirmation. HCV Quant by PCR testing. Performed By: #### L 100.0100, L300.3900, L501.4021, L500.2500 #### [facility] [address] [place], [address] Protein+Creatinine Ratio,Uri neon 12-06-2023 PROT:CRE RATIO 73 mg/g CRE Normal 0-200 [facility] Comment on above: Performed By: #### L 100.0100, L300.3900, L501.4021, L500.2500 #### [facility] [address] [place], [address] Protein (U) [Mass/Vol] 15.0 mg/dL High <11.9 [facility] Comment on above: Performed By: #### L 100.0100, L300.3900, L501.4021, L500.2500 #### [facility] [address] [place], [address] UR CREAT 206.00 mg/dL Normal NO RANGE EST. [facility] Comment on above: Performed By: #### L 100.0100, L300.3900, L501.4021, L500.2500 #### [facility] [address] [place], [address] Uric Acidon 12-06-2023 URIC 3.6 mg/dL Normal 2.6-6.0 [facility] Comment on above: Result Comment: The drugs N-Acetylcysteine and Metamizole may falsely depress this assay. Performed By: #### L 100.0100, L300.3900, L501.4021, L500.2500 #### [facility] [address] [place], [address] Urinalysis, Routine (Dipstic k)on 12-06-2023 BILIRUBIN URINE Negative Normal Negative [facility] Comment on above: Order Comment: CLEAN CATCH Performed By: #### L 100.0100, L300.3900, L501.4021, L500.2500 #### [facility] [address] [place], [address] Clarity (U) Clear Normal Clear [facility] Comment on above: Order Comment: CLEAN CATCH Performed By: #### L 100.0100, L300.3900, L501.4021, L500.2500 #### [facility] [address] [place], [address] Color (U) Yellow Normal Yellow [facility] Comment on above: Order Comment: CLEAN CATCH Performed By: #### L 100.0100, L300.3900, L501.4021, L500.2500 #### [facility] [address] [place], [address] GLUCOSE, UR Normal Normal Normal [facility] Comment on above: Order Comment: CLEAN CATCH Performed By: #### L 100.0100, L300.3900, L501.4021, L500.2500 #### [facility] [address] [place], [address] KETONE UR Negative Normal Negative [facility] Comment on above: Order Comment: CLEAN CATCH Performed By: #### L 100.0100, L300.3900, L501.4021, L500.2500 #### [facility] [address] [place], [address] LEUK ESTERASE 25 /ul Abnormal Negative [facility] Comment on above: Order Comment: CLEAN CATCH Performed By: #### L 100.0100, L300.3900, L501.4021, L500.2500 #### [facility] [address] [place], [address] Nitrite Ql (U) Negative Normal Negative [facility] Comment on above: Order Comment: CLEAN CATCH Performed By: #### L 100.0100, L300.3900, L501.4021, L500.2500 #### [facility] [address] [place], [address] OCCULT BLOOD-UR Negative Normal Negative [facility] Comment on above: Order Comment: CLEAN CATCH Performed By: #### L 100.0100, L300.3900, L501.4021, L500.2500 #### [facility] [address] [place], [address] pH UR 5.0 Normal 5.0 - 8.0 [facility] Comment on above: Order Comment: CLEAN CATCH Performed By: #### L 100.0100, L300.3900, L501.4021, L500.2500 #### [facility] [address] [place], [address] PROT DIPSTX 15 mg/dl Abnormal Negative [facility] Comment on above: Order Comment: CLEAN CATCH Performed By: #### L 100.0100, L300.3900, L501.4021, L500.2500 #### [facility] [address] [place], [address] SP.GR. DIPSTX 1.020 Normal 1.002-1.030 [facility] Comment on above: Order Comment: CLEAN CATCH Performed By: #### L 100.0100, L300.3900, L501.4021, L500.2500 #### [facility] [address] [place], [address] UROBILI 1 mg/dl Abnormal Normal [facility] Comment on above: Order Comment: CLEAN CATCH Performed By: #### L 100.0100, L300.3900, L501.4021, L500.2500 #### [facility] [address] [place], [address] PT D/C Summary (1)on 024 PT D/C Summary (1) [facility] Physical Therapy [address] [place] [address] / REHABILITATION SERVICES DISCHARGE SUMMARY MR#: [id number] Acct: [id number] Name: CIARA SAWYER I Rep #: [id number] : 1945 78 From: Carlos Benito PT, Cert. MD Hassan, OCS Referring Dr.: Dr. Frank Morales DO Status: REG R CR Insurance: MEDICARE PART A B WPS FOR LIFE Discharge Summary D/C summary: It has been my pleasure to treat CIARA SAWYER referred by Dr. Frank Morales DO, with the diagnosis of WEAKNESS for a total of 10 visit(s). Discharge Date: Please see the following information for a summary of their discharge status. Subjective Subjective: Patient will try to do own Patient reports balance is better Strength has improved but uses cane Plan to see pain management Pain Bilateral Back: Pain Intensity (Out of 10): 2 L foot: Pain Intensity (Out of 10): 3 Overall Improvement % Improvement: 25 Objective Objective/Function: POSTURE: mild forward posture ,hips/knees flexed ,trunk flexed GAIT: reciprocal pattern 2 point gait with forward posture NEURO: denies paresthesia/tingling BALANCE: good- with cane MMT: ( peak force) quads right 24.1,left 20.9 ,hamstrings right 17.9 ,right 14.1. hip flexion right 24.1 .left 20.1 STAIRS: one step at time with rails Goals Goal 1:: Patient to be I with HEP Goal Progress: Goal Met Goal 2:: Patient to improve LFES score by 5-10 points to improve gait Goal Progress: Progressing Goal 3:: Patient to improve peak force quads/hams/hip by 5-10# to improve function and gait Goal Progress: Progressing Goal 4:: Patient to improve CATSIBE by 5-10 points to improve balance Goal Progress: Goal Met Goal 5:: Patient to improve functional gait assessment score by 5 points to improve gait and decrease risk of falls Goal Progress: Goal Met Goal 6:: Patient to demonstrate 50% improvement with increase function and gait Goal Progress: Progressing Plan Plan: PT INTERVENTIONS PROGRESSIVE BALANCE TRAINING ,STRENGTHENING BLE QUADS/HAMS/HIP ,FUNCTIONAL STRENGTHENING AND ENDURANCE PROGRAM D/C Information d/c sentence: If there are questions or concerns regarding this patient's physical therapy, please feel free to call me at [phone]. Thank you for the referral of this patient. Sincerely, Carlos Benito, PT, Cert MDT, OCS Balance/Gait/Functiona l tests Balance/Special Test Scores Functional Gait Assessment Score: 21 % Disability: 30.0000 CATSIB Score (Max score 120 seconds): 90 Lower Extremity Functional Score: 41 Improvement % Improvement: 25 11/01/23 1347 CC: Dr. Frank Morales DO JLA Signed Normal [facility] BD BONE DENSITY DEXA AXIAL S [place] 10-29-2023 BD BONE DENSITY DEXA AXIAL [place] ORIGINAL EXAMINATION: BONE DENSITOMETRY 10/29/2023 1:41 pm TECHNIQUE: A bone density dual x-ray absorptiometry (DEXA) scan was performed of the axial (e.g. hips, spine) and/or appendicular (e.g. radius) skeleton as appropriate. COMPARISON: 10/28/2021. HISTORY: ORDERING SYSTEM PROVIDED HISTORY: Reason for Exam: Osteoporosis Screening FINDINGS: T Score Left Femoral Neck: -3.0 Left Femoral Neck: 0.518 (g/cm2) T Score Left Hip: -2.0 Left Hip: 0.698 (g/cm2) T Score Lumbar Spine: -1.3 Lumbar Spine: 0.906 (g/cmd2) BMD Change from previous Hip: 8.2% BMD Change from previous Lumbar Spine: 8.6% IMPRESSION: Osteoporosis by WHO criteria. World Health Organization criteria: (Comparing with young normal sex matched population) - Normal: T-score at or above -1 SD (standard deviation) - Osteopenia: T-score between -1 and -2.5 SD - Osteoporosis: T-score at or below -2.5 SD The NOF recommends that FDA-approved medical therapies be considered in post-menopausal women and men age >/= 50 years with a: * Hip or vertebral fracture, or * T-score of /= 20% for major osteoporotic fractures or * >/= 3% for hip fractures All treatment decisions require clinical judgement and consideration of individual patient factors, including patient preferences, comorbidities, previous drug use, risk factors not captured in the FRAX registered model (e.g., frailty, falls, vitamin D deficiency, increased bone turnover, interval significant decline in bone density) and possible under- or over-estimation of fracture risk by FRAX. Interpreted by: Umair Phan DO Preliminary Report By: Umair Phan DO Electronically signed By Umair Phan DO Dictated Date: 10/29/2023 2:29:14 PM Prelim Date: 10/29/2023 2:30:05 PM Sign Date: 10/29/2023 2:30:05 PM Ordering Provider: FRANK Salazar [facility] ([place]) US SOFT TISSUE MASS OF RT AR M OR [place] 10-07-2023 US SOFT TISSUE MASS OF RT ARM OR [place] ORIGINAL EXAMINATION: SOFT TISSUE ULTRASOUND OF THE RIGHT EXTREMITY 10/07/2023 3:07 pm COMPARISON: None. HISTORY: ORDERING SYSTEM PROVIDED HISTORY: Reason for Exam: right upper lateral arm mid firm soft tissue mass Firm upper lateral arm mass, reported decrease in size IMPRESSION: Please note the interpreting diagnostic radiologist was not present at time of scanning. Diagnostic ultrasound evaluation of the right upper lateral arm demonstrates an isoechoic/slightly echogenic subcutaneous mass measuring 1.7 x 0.9 x 1.0 cm. There is no significant vascularity on Doppler interrogation. Findings are most favored to reflect a lipomatous lesion. Interpreted by: Carlota Hernández Preliminary Report By: Carlota Hernández Electronically signed By Carlota Hernández Dictated Date: 10/07/2023 3:13:44 PM Prelim Date: 10/07/2023 3:15:29 PM Sign Date: 10/07/2023 3:15:29 PM Ordering Provider: FRANK Salazar [facility] ([place]) Inital Evaluation (1) - PTon 10-01-2023 Inital Evaluation (1) - PT [facility] Physical Therapy [facility] [place] [address] / REHABILITATION SERVICES INITIAL EVALUATION MR#: [id number] Acct: [id number] Name: CIARA SAWYER I Rep #: [id number] : 1945 78 From: Carlos Benito PT, Cert. T, OCS Referring Dr.: Dr. Frank Morales DO Status: REG R CR Insurance: MEDICARE PART A B WPS FOR LIFE Patient's Visit Information Visit Information Visit Information: CIARA SAWYER is a 78 year old F referred to Physical Therapy by Dr. Frank Morales DO with a diagnosis of WEAKNESS. Date of Evaluation: 10/01/23 Physical Therapist: Carlos Benito PT, Cert MDT, OCS Visit Plan Frequency: 2x /Week Duration: 4 Weeks Plan: PT INTERVENTIONS PROGRESSIVE BALANCE TRAINING ,STRENGTHENING BLE QUADS/HAMS/HIP ,FUNCTIONAL STRENGTHENING AND ENDURANCE PROGRAM Subjective Subjective: This 78 y/o female presents to physical therapy with weakness. Patient has been developed weakness past year. Patient had TIA last year July 2023. Patient seen DR sully CAMPOS . Patient has more weakness left side > right thus uses cane outside. Patient has no recent falls. Patient has lumbar pain. Medication tramadol pain. Patient lives with friend. Patient lives in 1 story home with 1 step. Walk-in shower bars. Patient I with dressing and bathing. Patient is able to cook and cleaning. Patient condition affects QOL and function. Patient goals to get stronger . SOCIAL: single VOCATION: retired Pain Bilateral Back: Pain Intensity (Out of 10): 3 Pain Intensity Range: 10 Objective Objective: POSTURE: mild forward posture ,hips/knees flexed ,trunk flexed GAIT: reciprocal pattern 2 point gait with forward posture NEURO: denies paresthesia/tingling BALANCE: fair + with cane MMT: ( peak force) quads right 24.1,left 20.9 ,hamstrings right 17.9 ,right 14.1. hip flexion right 24.1 .leeft 20.1 STAIRS: one step at time with rails Balance/Special Test Scores Functional Gait Assessment Score: 15 % Disability: 50.0000 CATSIB Score (Max score 120 seconds): 70 Lower Extremity Functional Score: 30 Goals Goal 1:: Patient to be I with HEP Goal Time Frame: 4-6 Weeks Goal 2:: Patient to improve LFES score by 5-10 points to improve gait Goal Time Frame: 4-6 Weeks Goal 3:: Patient to improve peak force quads/hams/hip by 5-10# to improve function and gait Goal Time Frame: 4-6 Weeks Goal 4:: Patient to improve CATSIBE by 5-10 points to improve balance Goal Time Frame: 4-6 Weeks Goal 5:: Patient to improve functional gait assessment score by 5 points to improve gait and decrease risk of falls Goal Time Frame: 4-6 Weeks Goal 6:: Patient to demonstrate 50% improvement with increase function and gait Goal Time Frame: 4-6 Weeks Rehabilitation Potential Physical Therapy Diagnosis: This patient has generalized weakness with decrease gait ,balance deficits thus benefit from skilled PT to address these impairments Rehabilitation Potential: Good Anticipated Interventions Patient/Client Instruction: Educate patient on: Condition and Plan of Care For the Purpose of:: To decrease pain, To improve muscle performance and motor function, To improve ability to perform ADL's, To increase tolerance to activity/condition/pos ition, To improve ability of physical actions for home/community/work/le isure, To improve gait and locomotor functions, To decrease soft tissue restriction, To improve endurance and To improve balance Therapeutic Exercise to Include: Strength training, Endurance training, Balance training and Gait and locomotor training Comment: BLE For the Purpose of:: To improve muscle performance and motor function, To improve ability to perform ADL's, To increase tolerance to activity/condition/pos ition, To improve ability of physical actions for home/community/work/le isure, To improve gait and locomotor functions, To increase flexibility/ROM, To improve endurance and To improve balance Text: Thank you for the opportunity to evaluate your patient. For Medicare and Medicare HMO plans, please review the plan of care and approve it. It will need to be FAXED BACK to us at [phone] for Medicare purposes. For Medicare only, by signing this I certify the plan of care. Please let me know if there are questions or concerns regarding this plan of care. Physician Signature: Date:__ 10/01/23 1404 CC: Dr. Frank Morales DO MOISES Signed Normal [facility] .Auto Diffon 04-23-2023 Basophil, Absolute 0.0 10 3/mcL Normal 0.0-0.2 [facility] ([place]) Comment on above: Performed By: #### V IDH, ANEU, CBC, URIC, ADIFF, CMP, GFR #### [address] [address] #### PTH #### [address] [address] Basophils/100 WBC (Bld) 0.6 % Normal 0.0-2.5 [facility] ([place]) Comment on above: Performed By: #### V IDH, ANEU, CBC, URIC, ADIFF, CMP, GFR #### [address] [address] #### PTH #### [address] [address] Eosinophil, Absolute 0.2 10 3/mcL Normal 0.0-0.4 [facility] ([place]) Comment on above: Performed By: #### V IDH, ANEU, CBC, URIC, ADIFF, CMP, GFR #### [address] [address] #### PTH #### [address] [address] Eosinophils/100 WBC (Bld) 2.9 % Normal 0.0-7.0 [facility] ([place]) Comment on above: Performed By: #### V IDH, ANEU, CBC, URIC, ADIFF, CMP, GFR #### [address] [address] #### PTH #### [address] [address] Lymphocyte, Absolute 1.8 10 3/mcL Normal 0.8-3.9 [facility] ([place]) Comment on above: Performed By: #### V IDH, ANEU, CBC, URIC, ADIFF, CMP, GFR #### [address] [address] #### PTH #### [address] [address] Lymphocytes/100 WBC (Bld) 24.2 % Normal 10.0-50.0 [facility] ([place]) Comment on above: Performed By: #### V IDH, ANEU, CBC, URIC, ADIFF, CMP, GFR #### [address] [address] #### PTH #### [address] [address] Monocyte, Absolute 0.5 10 3/mcL Normal 0.2-1.0 [facility] ([place]) Comment on above: Performed By: #### V IDH, ANEU, CBC, URIC, ADIFF, CMP, GFR #### [address] [address] #### PTH #### [address] [address] Monocytes/100 WBC (Bld) 6.3 % Normal 1.7-13.0 [facility] ([place]) Comment on above: Performed By: #### V IDH, ANEU, CBC, URIC, ADIFF, CMP, GFR #### [address] [address] #### PTH #### [address] [address] Neutrophils/100 WBC (Bld) 66.0 % Normal 37.0-80.0 [facility] ([place]) Comment on above: Performed By: #### V IDH, ANEU, CBC, URIC, ADIFF, CMP, GFR #### [address] [address] #### PTH #### [address] [address] .GFRon 04-23-2023 GFR 80 ml/min/1.73sqm Normal [facility] ([place]) Comment on above: Result Comment: GFR Population mean for , [...] 15 mL/min/1.73 square meters Performed By: #### V IDH, ANEU, CBC, URIC, ADIFF, CMP, GFR ####[address] [address]#### PTH ####[place] [id number] [place] [address] GFR Non- 66 ml/min/1.73sqm Normal [facility] ([place]) Comment on above: Result Comment: GFR Population mean for , [...] 15 mL/min/1.73 square meters Performed By: #### V IDH, ANEU, CBC, URIC, ADIFF, CMP, GFR ####[address] [address]#### PTH ####[address] [address] .NEUABSon 04-23-2023 Neutrophil, Absolute 4.9 10 3/mcL Normal 2.9-6.2 [facility] ([place]) Comment on above: Performed By: #### V IDH, ANEU, CBC, URIC, ADIFF, CMP, GFR #### [address] [address] #### PTH #### [place] [id number] [place] [address] CBCon 04-23-2023 Erythrocyte distribution width (RBC) [Ratio] 13.7 % Normal 11.5-14.5 [facility] ([place]) Comment on above: Performed By: #### V IDH, ANEU, CBC, URIC, ADIFF, CMP, GFR #### [place] [address] #### PTH #### [place] [address] Hematocrit (Bld) [Volume fraction] 38.5 % Normal 37.0-47.0 [facility] ([place]) Comment on above: Performed By: #### V IDH, ANEU, CBC, URIC, ADIFF, CMP, GFR #### [place] [address] #### PTH #### [place] [address] Hgb 13.0 G/dL Normal 12.0-16.0 [facility] ([place]) Comment on above: Performed By: #### V IDH, ANEU, CBC, URIC, ADIFF, CMP, GFR #### [place] [address] #### PTH #### [place] [address] MCH (RBC) [Entitic mass] 30.8 pg Normal 27.0-31.2 [facility] ([place]) Comment on above: Performed By: #### V IDH, ANEU, CBC, URIC, ADIFF, CMP, GFR #### [place] [address] #### PTH #### [place] [address] MCHC 33.7 G/dL Normal 33.0-37.0 [facility] ([place]) Comment on above: Performed By: #### V IDH, ANEU, CBC, URIC, ADIFF, CMP, GFR #### [place] [address] #### PTH #### [place] [address] MCV (RBC) [Entitic vol] 91.3 fL Normal 80.0-94.0 [facility] ([place]) Comment on above: Performed By: #### V IDH, ANEU, CBC, URIC, ADIFF, CMP, GFR #### [place] [address] #### PTH #### [place] [address] Platelet 165 10 3/mcL Normal 130-400 [facility] ([place]) Comment on above: Performed By: #### V IDH, ANEU, CBC, URIC, ADIFF, CMP, GFR #### [place] [address] #### PTH #### [place] [address] Platelet mean volume (Bld) [Entitic vol] 10.9 fL High 7.4-10.4 [facility] ([place]) Comment on above: Performed By: #### V IDH, ANEU, CBC, URIC, ADIFF, CMP, GFR #### [place] [address] #### PTH #### [place] [address] RBC 4.21 10 6/mcL Normal 4.20-5.40 [facility] ([place]) Comment on above: Performed By: #### V IDH, ANEU, CBC, URIC, ADIFF, CMP, GFR #### [place] [address] #### PTH #### [place] [address] WBC 7.4 10 3/mcL Normal 4.6-10.8 [facility] ([place]) Comment on above: Performed By: #### V IDH, ANEU, CBC, URIC, ADIFF, CMP, GFR #### [place] [address] #### PTH #### [place] [address] CMPon 04-23-2023 Albumin Level 3.2 G/dL Low 3.4-4.8 [facility] ([place]) Comment on above: Performed By: #### V IDH, ANEU, CBC, URIC, ADIFF, CMP, GFR ####[place] [address]#### PTH ####[place] [address] Albumin/Globulin [Mass ratio] 1.0 {ratio} Low 1.1-2.5 [facility] ([place]) Comment on above: Performed By: #### V IDH, ANEU, CBC, URIC, ADIFF, CMP, GFR ####[place] [address]#### PTH ####[place] [address] ALP [Catalytic activity/Vol] 113 U/L Normal 40-135 [facility] ([place]) Comment on above: Performed By: #### V IDH, ANEU, CBC, URIC, ADIFF, CMP, GFR ####[place] [address]#### PTH ####[place] [address] ALT [Catalytic activity/Vol] 15 U/L Normal 14-59 [facility] ([place]) Comment on above: Performed By: #### V IDH, ANEU, CBC, URIC, ADIFF, CMP, GFR ####[place] [address]#### PTH ####[place] [address] AST [Catalytic activity/Vol] 10 U/L Normal 10-40 [facility] ([place]) Comment on above: Performed By: #### V IDH, ANEU, CBC, URIC, ADIFF, CMP, GFR ####[place] [address]#### PTH ####[place] [address] Bili Total 0.6 mg/dL Normal 0.2-1.0 [facility] ([place]) Comment on above: Result Comment: Use of this assay is not recommended for patients undergoing treatment with eltrombopag due to the potential for falsely elevated results. Performed By: #### V IDH, ANEU, CBC, URIC, ADIFF, CMP, GFR ####[place] [address]#### PTH ####[address] [address] BUN/Creatinine Ratio 13 ratio Normal 7-27 [facility] ([place]) Comment on above: Performed By: #### V IDH, ANEU, CBC, URIC, ADIFF, CMP, GFR ####[address] [address]#### PTH ####[place] [address] Calcium [Mass/Vol] 8.6 mg/dL Normal 8.4-10.2 [facility] ([place]) Comment on above: Performed By: #### V IDH, ANEU, CBC, URIC, ADIFF, CMP, GFR ####[place] [address]#### PTH ####[place] [address] Chloride [Moles/Vol] 106 mmol/L Normal 98-107 [facility] ([place]) Comment on above: Performed By: #### V IDH, ANEU, CBC, URIC, ADIFF, CMP, GFR ####[place] [address]#### PTH ####[place] [address] CO2 [Moles/Vol] 30 mmol/L Normal 23-31 [facility] ([place]) Comment on above: Performed By: #### V IDH, ANEU, CBC, URIC, ADIFF, CMP, GFR ####[place] [address]#### PTH ####[place] [address] Creatinine [Mass/Vol] 0.83 mg/dL Normal 0.55-1.02 [facility] ([place]) Comment on above: Performed By: #### V IDH, ANEU, CBC, URIC, ADIFF, CMP, GFR ####[place] [address]#### PTH ####[place] [address] Electrolyte Balance 6.0 mEq/L Normal 4.0-15.0 [facility] ([place]) Comment on above: Performed By: #### V IDH, ANEU, CBC, URIC, ADIFF, CMP, GFR ####[address] [address]#### PTH ####[address] [address] Globulin 3.1 G/dL Normal [facility] ([place]) Comment on above: Performed By: #### V IDH, ANEU, CBC, URIC, ADIFF, CMP, GFR ####[address] [address]#### PTH ####[address] [address] Glucose [Mass/Vol] 98 mg/dL Normal 83-110 [facility] ([place]) Comment on above: Performed By: #### V IDH, ANEU, CBC, URIC, ADIFF, CMP, GFR ####[place] [address]#### PTH ####[address] [address] Potassium [Moles/Vol] 4.2 mmol/L Normal 3.5-5.1 [facility] ([place]) Comment on above: Performed By: #### V IDH, ANEU, CBC, URIC, ADIFF, CMP, GFR ####[place] [address]#### PTH ####[address] [address] Sodium [Moles/Vol] 142 mmol/L Normal 136-145 [facility] ([place]) Comment on above: Performed By: #### V IDH, ANEU, CBC, URIC, ADIFF, CMP, GFR ####[address] [address]#### PTH ####[address] [address] Total Protein 6.3 G/dL Low 6.4-8.2 [facility] ([place]) Comment on above: Performed By: #### V IDH, ANEU, CBC, URIC, ADIFF, CMP, GFR ####[address] [place], [place] [address]#### PTH ####[address] [address] Urea nitrogen [Mass/Vol] 11 mg/dL Normal 7-18 [facility] ([place]) Comment on above: Performed By: #### V IDH, ANEU, CBC, URIC, ADIFF, CMP, GFR ####[address] [place], [place] [address]#### PTH ####[place] [address] LABORATORYOrdered By: SYSTEM SYSTEM on 04-23-2023 25-hydroxyvitamin D3 [Mass/Vol] 67.2 ng/mL Invalid Interpretation Code AO ADM SS Comment on above: Interpretive Data: I nterpretive Values Based on Total 25(OH) Vitamin D: Deficient <20 ng/mL Insufficient 20 - <30 ng/mL Sufficient 30-100 ng/mL Albumin BCP dye [Mass/Vol] 3.2 G/dL Low 3.4 - 4.8 G/dL AO ADM SS Albumin/Globulin [Mass ratio] 1.0 {ratio} Low 1.1 - 2.5 ratio AO ADM SS ALP [Catalytic activity/Vol] 113 U/L Normal 40 - 135 U/L AO ADM SS ALT With P-5'-P [Catalytic activity/Vol] 15 U/L Normal 14 - 59 U/L AO ADM SS AST With P-5'-P [Catalytic activity/Vol] 10 U/L Normal 10 - 40 U/L AO ADM SS Basophil, Absolute 0.0 103/mcL Normal 0.0 - 0.2 10^3/mcL AO Workflow SS Basophils/100 WBC (Bld) 0.6 % Normal 0.0 - 2.5 % AO Workflow SS Bilirubin [Mass/Vol] 0.6 mg/dL Normal 0.2 - 1 .0 mg/dL AO ADM SS Comment on above: Interpretive Data: U se of this assay is not recommended for patients undergoing treatment with eltrombopag due to the potential for falsely elevated results. Calcium [Mass/Vol] 8.6 mg/dL Normal 8.4 - 10. 2 mg/dL AO ADM SS Chloride [Moles/Vol] 106 mmol/L Normal 98 - 10 7 mmol/L AO ADM SS CO2 [Moles/Vol] 30 mmol/L Normal 23 - 31 mmol/L AO ADM SS Creatinine [Mass/Vol] 0.83 mg/dL Normal 0.55 - 1.02 mg/dL AO ADM SS Electrolyte Balance 6.0 mEq/L Normal 4.0 - 15 .0 mEq/L AO ADM SS Eosinophil, Absolute 0.2 103/mcL Normal 0.0 - 0 .4 10^3/mcL AO Workflow SS Eosinophils/100 WBC (Bld) 2.9 % Normal 0.0 - 7.0 % AO Workflow SS Erythrocyte distribution width (RBC) [Ratio] 13.7 % Normal 11.5 - 14.5 % AO Workflow SS GFR/1.73 sq M.predicted among blacks MDRD (S/P/Bld) [Vol rate/Area] 80 ml/min/1.73sqm Invalid Interpretation Code AO Chemistry S Comment on above: Interpretive Data: GFR Population mean for , Non- Americans Ages 20-29 = 116 mL/min/1.73 sq.m. Ages 30-39 = 107 mL/min/1.73 sq.m. Ages 40-49 = 99 mL/min/1.73 sq.m. Ages 50-59 = 93 mL/min/1.73 sq.m. Ages 60-69 = 85 mL/min/1.73 sq.m. Ages 70+ = 75 mL/min/1.73 sq.m. Chronic Kidney Disease: Less than 60 mL/min/1.73 square meters End Stage Renal Disease: Less than 15 mL/min/1.73 square meters GFR/1.73 sq M.predicted among non-blacks MDRD (S/P/Bld) [Vol rate/Area] 66 ml/min/1.73sqm Invalid Interpretation Code AO Chemistry S Comment on above: Interpretive Data: GFR Population mean for , Non- Americans Ages 20-29 = 116 mL/min/1.73 sq.m. Ages 30-39 = 107 mL/min/1.73 sq.m. Ages 40-49 = 99 mL/min/1.73 sq.m. Ages 50-59 = 93 mL/min/1.73 sq.m. Ages 60-69 = 85 mL/min/1.73 sq.m. Ages 70+ = 75 mL/min/1.73 sq.m. Chronic Kidney Disease: Less than 60 mL/min/1.73 square meters End Stage Renal Disease: Less than 15 mL/min/1.73 square meters Globulin 3.1 G/dL Invalid Interpretation Code AO ADM SS Glucose [Mass/Vol] 98 mg/dL Normal 83 - 110 mg/dL AO ADM SS Hematocrit (Bld) [Volume fraction] 38.5 % Normal 37.0 - 47.0 % AO Workflow SS Hemoglobin (Bld) [Mass/Vol] 13.0 G/dL Normal 12.0 - 16.0 G/dL AO Workflow SS Lymphocyte, Absolute 1.8 103/mcL Normal 0.8 - 3 .9 10^3/mcL AO Workflow SS Lymphocytes/100 WBC (Bld) 24.2 % Normal 10.0 - 50.0 % AO Workflow SS MCH (RBC) [Entitic mass] 30.8 pg Normal 27.0 - 31.2 pg AO Workflow SS MCHC 33.7 G/dL Normal 33.0 - 37.0 G/dL AO Workflow SS MCV (RBC) [Entitic vol] 91.3 fL Normal 80.0 - 94.0 fL AO Workflow SS Monocyte, Absolute 0.5 103/mcL Normal 0.2 - 1.0 10^3/mcL AO Workflow SS Monocytes/100 WBC (Bld) 6.3 % Normal 1.7 - 13.0 % AO Workflow SS Neutrophil, Absolute 4.9 103/mcL Normal 2.9 - 6 .2 10^3/mcL AO Workflow SS Neutrophils/100 WBC (Bld) 66.0 % Normal 37.0 - 80.0 % AO Workflow SS Parathyrin.intact [Mass/Vol] 339.3 pg/mL High 18.5 - 88.0 pg/mL AH ADM SS Platelet mean volume (Bld) [Entitic vol] 10.9 fL High 7.4 - 10.4 fL AO Workflow SS Platelets (Bld) [#/Vol] 165 103/mcL Normal 130 - 400 10^3/mcL AO Workflow SS Potassium [Moles/Vol] 4.2 mmol/L Normal 3.5 - 5.1 mmol/L AO ADM SS Protein [Mass/Vol] 6.3 G/dL Low 6.4 - 8.2 G/dL AO ADM SS RBC (Bld) [#/Vol] 4.21 106/mcL Normal 4.20 - 5.4 0 10^6/mcL AO Workflow SS Sodium [Moles/Vol] 142 mmol/L Normal 136 - 145 mmol/L AO ADM SS Urea nitrogen [Mass/Vol] 11 mg/dL Normal 7 - 18 mg/dL AO ADM SS Urea nitrogen/Creatinine [Mass ratio] 13 ratio Normal 7 - 27 ratio AO ADM SS Uric Acid Lvl 4.1 mg/dL Normal 2.6 - 6.2 mg/dL AO ADM SS WBC (Bld) [#/Vol] 7.4 103/mcL Normal 4.6 - 10.8 10^3/mcL AO Workflow SS PTHon 04-23-2023 PTH, Intact 339.3 pg/mL High 18.5-88.0 [facility] ([place]) Comment on above: Performed By: #### V IDH, ANEU, CBC, URIC, ADIFF, CMP, GFR ####[place] [address]#### PTH ####[place] [address] URICon 04-23-2023 Uric Acid Lvl 4.1 mg/dL Normal 2.6-6.2 [facility] ([place]) Comment on above: Performed By: #### V IDH, ANEU, CBC, URIC, ADIFF, CMP, GFR ####[place] [address]#### PTH ####[place] [address] VIDHon 04-23-2023 Vit. D 25-Hydroxy 67.2 ng/mL Normal [facility] ([place]) Comment on above: Result Comment: Inte rpretive Values Based on Total 25(OH) Vitamin D: Deficient <20 ng/mL Insufficient 20 - <30 ng/mL Sufficient 30-100 ng/mL Performed By: #### V IDH, ANEU, CBC, URIC, ADIFF, CMP, GFR ####[place] [address]#### PTH ####[place] [id number] [place] [address] XR RIBS 2 VIEWS LEFTon 03-14 XR RIBS 2 VIEWS LEFT ORIGINAL EXAMINATION: XRAY VIEWS OF THE LEFT RIBS 03/12/2023 12:54 pm COMPARISON: None. HISTORY: ORDERING SYSTEM PROVIDED HISTORY: Reason for Exam: left anterolateral rib pain 7-10 after fall FINDINGS: No displaced left-sided rib fractures are identified. No focal areas of pleural thickening are seen. No pneumothorax is identified. IMPRESSION: 1. No displaced left-sided rib fracture or evidence of pneumothorax. Interpreted by: Oscar Topete MD Preliminary Report By: Oscar Topete MD Electronically signed By Oscar Topete MD Dictated Date: 03/14/2023 9:24:40 AM Prelim Date: 03/14/2023 9:25:37 AM Sign Date: 03/14/2023 9:25:37 AM Ordering Provider: FRANK Salazar [facility] ([place]) XR KNEE THREE VIEWS LEFTon 0 03-13-2023 XR KNEE THREE VIEWS LEFT ORIGINAL EXAMINATION: THREE XRAY VIEWS OF THE LEFT KNEE; THREE XRAY VIEWS OF THE RIGHT KNEE03/12/2023 12:54 pm KNEE 3 VIEWS LEFT; KNEE 3 VIEWS RIGHT XR COMPARISON: Left knee 03/06/2021 HISTORY: ORDERING SYSTEM PROVIDED HISTORY: Reason for Exam: right knee pain and ecchymosis after fall, s/p replacement, FINDINGS: No acute fracture, dislocation, lytic process or periosteal reaction is seen in the visualized bones and joints. No erosive type of arthritis. No periarticular soft tissue calcification. Right knee: There is a total knee prosthesis that shows satisfactory alignment with no suspicious periprosthetic lucency or fracture. No significant joint effusion. Left knee: There is a total knee prosthesis with satisfactory alignment. No suspicious periprosthetic lucency or fracture. No significant joint effusion. IMPRESSION: No acute skeletal abnormality is seen.. No periprosthetic fracture in either knee. Bilateral knee prostheses seem to be intact and uncomplicated. Interpreted by: Silvestre Parada MD Preliminary Report By: Silvestre Parada MD Electronically signed By Silvestre Parada MD Dictated Date: 03/13/2023 12:31:01 PM Prelim Date: 03/13/2023 12:32:58 PM Sign Date: 03/13/2023 12:32:58 PM Ordering Provider: FRANK Salazar [facility] ([place]) XR KNEE THREE VIEWS RIGHTon 03-13-2023 XR KNEE THREE VIEWS RIGHT ORIGINAL EXAMINATION: THREE XRAY VIEWS OF THE LEFT KNEE; THREE XRAY VIEWS OF THE RIGHT KNEE03/12/2023 12:54 pm KNEE 3 VIEWS LEFT; KNEE 3 VIEWS RIGHT XR COMPARISON: Left knee 03/06/2021 HISTORY: ORDERING SYSTEM PROVIDED HISTORY: Reason for Exam: right knee pain and ecchymosis after fall, s/p replacement, FINDINGS: No acute fracture, dislocation, lytic process or periosteal reaction is seen in the visualized bones and joints. No erosive type of arthritis. No periarticular soft tissue calcification. Right knee: There is a total knee prosthesis that shows satisfactory alignment with no suspicious periprosthetic lucency or fracture. No significant joint effusion. Left knee: There is a total knee prosthesis with satisfactory alignment. No suspicious periprosthetic lucency or fracture. No significant joint effusion. IMPRESSION: No acute skeletal abnormality is seen.. No periprosthetic fracture in either knee. Bilateral knee prostheses seem to be intact and uncomplicated. Interpreted by: Silvestre Parada MD Preliminary Report By: Silvestre Parada MD Electronically signed By Silvestre Parada MD Dictated Date: 03/13/2023 12:31:01 PM Prelim Date: 03/13/2023 12:32:58 PM Sign Date: 03/13/2023 12:32:58 PM Ordering Provider: FRANK Salazar [facility] ([place]) CIPROFLOXACIN:SUSC:PT:ISOLAT E:ORDQN:MICon 01-11-2023 Ciprofloxacin MOHINI [Susc] 50,000 - 100,000 cfu/ml Escherichia coli [facility] Work Phone: Ciprofloxacin MOHINI [Susc]on 03-13-2022 Escherichia coli Escherichia coli [facility] Work Phone: ANAIFSon 11-26-2022 Antinuclear Ab Screen Negative Normal Negative [facility] ([place]) Comment on above: Result Comment: Anti -nuclear antibody test is used as an aid in diagnosis of systemic autoimmune diseases. Where positive and clinically warranted, follow-up using disease-specific testing is recommended. Low positive titers are not uncommon with advanced age, certain chronic infections, and malignancies among others. Test methodology: Indirect fluorescence immunoassay (IFA) using HEp-2 cells. Performed By: [facility] [address] [place] [address] Time Piece Repairer: Chava Salinas III, M.D. CLIA#: [id number] Performed By: #### A NAIFS #### [address] [address] .GFRon 11-24-2022 GFR Non- 63 ml/min/1.73sqm Normal [facility] ([place]) Comment on above: Result Comment: GFR Population mean for , [...] 15 mL/min/1.73 square meters Performed By: #### G FR, CMP, LIPID, HFP #### [address] [address] GFR 76 ml/min/1.73sqm Normal [facility] ([place]) Comment on above: Result Comment: GFR Population mean for , [...] 15 mL/min/1.73 square meters Performed By: #### G FR, CMP, LIPID, HFP #### [address] [address] CMPon 11-24-2022 BUN/Creatinine Ratio 20 ratio Normal 7-27 [facility] ([place]) Comment on above: Performed By: #### G FR, CMP, LIPID, HFP #### [address] [address] Calcium [Mass/Vol] 8.9 mg/dL Normal 8.4-10.2 [facility] ([place]) Comment on above: Performed By: #### G FR, CMP, LIPID, HFP #### [place] [id number] Chloride [Moles/Vol] 104 mmol/L Normal 98-107 [facility] ([place]) Comment on above: Performed By: #### G FR, CMP, LIPID, HFP #### [address] [address] CO2 [Moles/Vol] 30 mmol/L Normal 23-31 [facility] ([place]) Comment on above: Performed By: #### G FR, CMP, LIPID, HFP #### [address] [address] Creatinine [Mass/Vol] 0.87 mg/dL Normal 0.55-1.02 [facility] ([place]) Comment on above: Performed By: #### G FR, CMP, LIPID, HFP #### [address] [address] Electrolyte Balance 10.0 mEq/L Normal 4.0-15.0 [facility] ([place]) Comment on above: Performed By: #### G FR, CMP, LIPID, HFP #### [address] [address] Glucose [Mass/Vol] 106 mg/dL Normal 83-110 [facility] ([place]) Comment on above: Performed By: #### G FR, CMP, LIPID, HFP #### [address] [address] Potassium [Moles/Vol] 4.4 mmol/L Normal 3.5-5.1 [facility] ([place]) Comment on above: Performed By: #### G FR, CMP, LIPID, HFP #### [address] [address] Sodium [Moles/Vol] 144 mmol/L Normal 136-145 [facility] ([place]) Comment on above: Performed By: #### G FR, CMP, LIPID, HFP #### [address] [address] Urea nitrogen [Mass/Vol] 17 mg/dL Normal 7-18 [facility] ([place]) Comment on above: Performed By: #### G FR, CMP, LIPID, HFP #### [address] [address] HFPon 11-24-2022 Bili Indirect 0.4 mg/dL Normal [facility] ([place]) Comment on above: Performed By: #### G FR, CMP, LIPID, HFP #### [address] [address] Albumin Level 3.3 G/dL Low 3.4-4.8 [facility] ([place]) Comment on above: Performed By: #### G FR, CMP, LIPID, HFP #### [address] [address] Albumin/Globulin [Mass ratio] 1.0 {ratio} Low 1.1-2.5 [facility] ([place]) Comment on above: Performed By: #### G FR, CMP, LIPID, HFP #### [address] [address] ALP [Catalytic activity/Vol] 109 U/L Normal 40-135 [facility] ([place]) Comment on above: Performed By: #### G FR, CMP, LIPID, HFP #### [address] [address] ALT [Catalytic activity/Vol] 18 U/L Normal 14-59 [facility] ([place]) Comment on above: Performed By: #### G FR, CMP, LIPID, HFP #### [address] [address] AST [Catalytic activity/Vol] 15 U/L Normal 10-40 [facility] ([place]) Comment on above: Performed By: #### G FR, CMP, LIPID, HFP #### [address] [address] Bili Direct 0.1 mg/dL Normal 0.0-0.2 [facility] ([place]) Comment on above: Result Comment: Use of this assay is not recommended for patients undergoing treatment with eltrombopag due to the potential for falsely elevated results. Performed By: #### G FR, CMP, LIPID, HFP #### [place] [address] Bili Total 0.5 mg/dL Normal 0.2-1.0 [facility] ([place]) Comment on above: Result Comment: Use of this assay is not recommended for patients undergoing treatment with eltrombopag due to the potential for falsely elevated results. Performed By: #### G FR, CMP, LIPID, HFP #### [address] [address] Globulin 3.2 G/dL Normal [facility] ([place]) Comment on above: Performed By: #### G FR, CMP, LIPID, HFP #### [place] [id number] Total Protein 6.5 G/dL Normal 6.4-8.2 [facility] ([place]) Comment on above: Performed By: #### G FR, CMP, LIPID, HFP #### [address] [address] LABORATORYOrdered By: SYSTEM SYSTEM on 11-24-2022 Bilirubin.direct [Mass/Vol] 0.1 mg/dL Invalid Interpretation Code 0.0 - 0.2 mg/dL AO ADM SS Comment on above: Interpretive Data: U se of this assay is not recommended for patients undergoing treatment with eltrombopag due to the potential for falsely elevated results. Bilirubin.direct [Mass/Vol] 0.4 mg/dL Invalid Interpretation Code AO Chemistry S Calcium [Mass/Vol] 8.9 mg/dL Invalid Interpretation Code 8.4 - 10.2 mg/dL AO ADM SS Chloride [Moles/Vol] 104 mmol/L Invalid Interpretation Code 98 - 107 mmol/L AO ADM SS CO2 [Moles/Vol] 30 mmol/L Invalid Interpretation Code 23 - 31 mmol/L AO ADM SS Creatinine [Mass/Vol] 0.87 mg/dL Invalid Interpretation Code 0.55 - 1.02 mg/dL AO ADM SS Electrolyte Balance 10.0 mEq/L Invalid Interpretation Code 4.0 - 15.0 mEq/L AO ADM SS GFR/1.73 sq M.predicted among blacks MDRD (S/P/Bld) [Vol rate/Area] 76 ml/min/1.73sqm Invalid Interpretation Code AO Chemistry S Comment on above: Interpretive Data: GFR Population mean for , Non- Americans Ages 20-29 = 116 mL/min/1.73 sq.m. Ages 30-39 = 107 mL/min/1.73 sq.m. Ages 40-49 = 99 mL/min/1.73 sq.m. Ages 50-59 = 93 mL/min/1.73 sq.m. Ages 60-69 = 85 mL/min/1.73 sq.m. Ages 70+ = 75 mL/min/1.73 sq.m. Chronic Kidney Disease: Less than 60 mL/min/1.73 square meters End Stage Renal Disease: Less than 15 mL/min/1.73 square meters GFR/1.73 sq M.predicted among non-blacks MDRD (S/P/Bld) [Vol rate/Area] 63 ml/min/1.73sqm Invalid Interpretation Code AO Chemistry S Comment on above: Interpretive Data: GFR Population mean for , Non- Americans Ages 20-29 = 116 mL/min/1.73 sq.m. Ages 30-39 = 107 mL/min/1.73 sq.m. Ages 40-49 = 99 mL/min/1.73 sq.m. Ages 50-59 = 93 mL/min/1.73 sq.m. Ages 60-69 = 85 mL/min/1.73 sq.m. Ages 70+ = 75 mL/min/1.73 sq.m. Chronic Kidney Disease: Less than 60 mL/min/1.73 square meters End Stage Renal Disease: Less than 15 mL/min/1.73 square meters Glucose [Mass/Vol] 106 mg/dL Invalid Interpretation Code 83 - 110 mg/dL AO ADM SS Potassium [Moles/Vol] 4.4 mmol/L Invalid Interpretation Code 3.5 - 5.1 mmol/L AO ADM SS Sodium [Moles/Vol] 144 mmol/L Invalid Interpretation Code 136 - 145 mmol/L AO ADM SS Urea nitrogen [Mass/Vol] 17 mg/dL Invalid Interpretation Code 7 - 18 mg/dL AO ADM SS Urea nitrogen/Creatinine [Mass ratio] 20 ratio Invalid Interpretation Code 7 - 27 ratio AO ADM SS LABORATORYOrdered By: Amelia Gillis on 11-24-2022 Cholesterol [Mass/Vol] 148 mg/dL Invalid Interpretation Code 0 - 200 mg/dL AO ADM SS Comment on above: Interpretive Data: C holesterol Reference Interval: Less than 200 Desirable 200-239 Borderline high risk 240 and above High risk Cholesterol in HDL [Mass/Vol] 59 mg/dL Invalid Interpretation Code 40 - 60 mg/dL AO ADM SS Cholesterol in LDL [Mass/Vol] 76 mg/dL Invalid Interpretation Code 0 - 130 mg/dL AO ADM SS Triglyceride [Mass/Vol] 66 mg/dL Invalid Interpretation Code 0 - 150 mg/dL AO ADM SS Comment on above: Interpretive Data: T riglyceride Reference Interval: Less than 150 Normal 150-199 Borderline high risk 200-499 High risk 500 or higher Very high risk LABORATORYOrdered By: RUBÉN FERNÁNDEZ CONTRIBUTOR_SYSTEM on 11-24-2022 Antinuclear Ab Screen Negative Invalid Interpretation Code Sendouts SS Comment on above: Result Comment: Anti -nuclear antibody test is used as an aid in diagnosis of systemic autoimmune diseases. Where positive and clinically warranted, follow-up using disease-specific testing is recommended. Low positive titers are not uncommon with advanced age, certain chronic infections, and malignancies among others. Test methodology: Indirect fluorescence immunoassay (IFA) using HEp-2 cells. Performed By: [facility] [address] [place] [address] Time Piece Repairer: Chava Salinas III, M.D. CLIA#: [id number] LIPIDon 11-24-2022 Cholesterol [Mass/Vol] 148 mg/dL Normal 0-200 [facility] ([place]) Comment on above: Result Comment: Chol esterol Reference Interval: Less than 200 Desirable 200-239 Borderline high risk 240 and above High risk Performed By: #### G FR, CMP, LIPID, HFP #### [place] [id number] [place], [place] [address] Cholesterol in HDL [Mass/Vol] 59 mg/dL Normal 40-60 [facility] ([place]) Comment on above: Performed By: #### G FR, CMP, LIPID, HFP #### [place] [address] [place], [place] [address] Cholesterol in LDL [Mass/Vol] 76 mg/dL Normal 0-130 [facility] ([place]) Comment on above: Performed By: #### G FR, CMP, LIPID, HFP #### [place] [address] [place], [place] [address] Triglyceride [Mass/Vol] 66 mg/dL Normal 0-150 [facility] ([place]) Comment on above: Result Comment: Trig lyceride Reference Interval: Less than 150 Normal 150-199 Borderline high risk 200-499 High risk 500 or higher Very high risk Performed By: #### G FR, CMP, LIPID, HFP #### [place] [address] [place], [place] [address] Laboratory - Chemistry and C hemistry - challengeOrdered By: SYSTEM SYSTEM on 11-24-2022 Albumin BCP dye [Mass/Vol] 3.3 G/dL Invalid Interpretation Code 3.4 - 4.8 G/dL AO ADM SS Albumin/Globulin [Mass ratio] 1.0 {ratio} Invalid Interpretation Code 1.1 - 2.5 ratio AO ADM SS ALP [Catalytic activity/Vol] 109 U/L Invalid Interpretation Code 40 - 135 U/L AO ADM SS ALT With P-5'-P [Catalytic activity/Vol] 18 U/L Invalid Interpretation Code 14 - 59 U/L AO ADM SS AST With P-5'-P [Catalytic activity/Vol] 15 U/L Invalid Interpretation Code 10 - 40 U/L AO ADM SS Bilirubin [Mass/Vol] 0.5 mg/dL Invalid Interpretation Code 0.2 - 1.0 mg/dL AO ADM SS Comment on above: Interpretive Data: U se of this assay is not recommended for patients undergoing treatment with eltrombopag due to the potential for falsely elevated results. Protein [Mass/Vol] 6.5 G/dL Invalid Interpretation Code 6.4 - 8.2 G/dL AO ADM SS No Panel InformationOrdered By: SYSTEM SYSTEM on 11-24-2022 Globulin 3.2 G/dL Invalid Interpretation Code AO ADM SS LABORATORYOrdered By: Janene Barrera on 08-17-2022 Calcium (U) [Mass/Vol] 8.8 mg/dL Invalid Interpretation Code Chemistry S LABORATORYOrdered By: SYSTEM SYSTEM on 08-17-2022 Creatinine (U) [Mass/Vol] 46.9 mg/dL Invalid Interpretation Code 28.0 - 117.0 mg/dL AO ADM SS LABORATORYOrdered By: SYSTEM SYSTEM on 08-14-2022 Potassium [Moles/Vol] 4.1 mmol/L Invalid Interpretation Code 3.5 - 5.1 mmol/L AO ADM SS LABORATORYOrdered By: Parminder Rendon on 08-14-2022 Basophil, Absolute 0.1 103/mcL Invalid Interpretation Code 0.0 - 0.2 10^3/mcL AO Workflow SS Basophils/100 WBC (Bld) 1.0 % Invalid Interpretation Code 0.0 - 2.5 % AO Workflow SS Eosinophil, Absolute 0.5 103/mcL Invalid Interpretation Code 0.0 - 0.4 10^3/mcL AO Workflow SS Eosinophils/100 WBC (Bld) 5.8 % Invalid Interpretation Code 0.0 - 7.0 % AO Workflow SS Erythrocyte distribution width (RBC) [Ratio] 14.3 % Invalid Interpretation Code 11.5 - 14.5 % AO Workflow SS Hematocrit (Bld) [Volume fraction] 39.8 % Invalid Interpretation Code 37.0 - 47.0 % AO Workflow SS Hemoglobin (Bld) [Mass/Vol] 12.9 G/dL Invalid Interpretation Code 12.0 - 16.0 G/dL AO Workflow SS Lymphocyte, Absolute 2.0 103/mcL Invalid Interpretation Code 0.8 - 3.9 10^3/mcL AO Workflow SS Lymphocytes/100 WBC (Bld) 23.1 % Invalid Interpretation Code 10.0 - 50.0 % AO Workflow SS MCH (RBC) [Entitic mass] 29.9 pg Invalid Interpretation Code 27.0 - 31.2 pg AO Workflow SS MCHC 32.4 G/dL Invalid Interpretation Code 33.0 - 37.0 G/dL AO Workflow SS MCV (RBC) [Entitic vol] 92.2 fL Invalid Interpretation Code 80.0 - 94.0 fL AO Workflow SS Monocyte, Absolute 0.5 103/mcL Invalid Interpretation Code 0.2 - 1.0 10^3/mcL AO Workflow SS Monocytes/100 WBC (Bld) 5.9 % Invalid Interpretation Code 1.7 - 13.0 % AO Workflow SS Neutrophil, Absolute 5.5 103/mcL Invalid Interpretation Code 2.9 - 6.2 10^3/mcL AO Workflow SS Neutrophils/100 WBC (Bld) 64.2 % Invalid Interpretation Code 37.0 - 80.0 % AO Workflow SS Platelet mean volume (Bld) [Entitic vol] 11.1 fL Invalid Interpretation Code 7.4 - 10.4 fL AO Workflow SS Platelets (Bld) [#/Vol] 186 103/mcL Invalid Interpretation Code 130 - 400 10^3/mcL AO Workflow SS RBC (Bld) [#/Vol] 4.31 106/mcL Invalid Interpretation Code 4.20 - 5.40 10^6/mcL AO Workflow SS WBC (Bld) [#/Vol] 8.5 103/mcL Invalid Interpretation Code 4.6 - 10.8 10^3/mcL AO Workflow SS LOCO SCREENINGon 05-28-2022 [facility] Throat specimen bacteria rolf ntification by cultureOrdered By: Dr. Riojas on 04-13-2022 Bacteria identified Cx Nom (Throat) [facility] LABORATORYOrdered By: Cheikh Hammonds on 01-27-2022 Albumin BCP dye [Mass/Vol] 3.2 G/dL Invalid Interpretation Code 3.4 - 4.8 G/dL AO ADM SS Albumin/Globulin [Mass ratio] 1.1 {ratio} Invalid Interpretation Code 1.1 - 2.5 ratio AO ADM SS ALP [Catalytic activity/Vol] 148 U/L Invalid Interpretation Code 40 - 135 U/L AO ADM SS ALT With P-5'-P [Catalytic activity/Vol] 15 U/L Invalid Interpretation Code 14 - 59 U/L AO ADM SS AST With P-5'-P [Catalytic activity/Vol] 17 U/L Invalid Interpretation Code 10 - 40 U/L AO ADM SS Bilirubin [Mass/Vol] 0.6 mg/dL Invalid Interpretation Code 0.2 - 1.0 mg/dL AO ADM SS Calcium [Mass/Vol] 9.4 mg/dL Invalid Interpretation Code 8.4 - 10.2 mg/dL AO ADM SS Chloride [Moles/Vol] 105 mmol/L Invalid Interpretation Code 98 - 107 mmol/L AO ADM SS Cholesterol [Mass/Vol] 200 mg/dL Invalid Interpretation Code 0 - 200 mg/dL AO ADM SS Cholesterol in HDL [Mass/Vol] 57 mg/dL Invalid Interpretation Code 40 - 60 mg/dL AO ADM SS Cholesterol in LDL [Mass/Vol] 117 mg/dL Invalid Interpretation Code 0 - 130 mg/dL AO ADM SS CO2 [Moles/Vol] 34 mmol/L Invalid Interpretation Code 23 - 31 mmol/L AO ADM SS Creatinine [Mass/Vol] 0.93 mg/dL Invalid Interpretation Code 0.55 - 1.02 mg/dL AO ADM SS CRP [Mass/Vol] 0.6 mg/dL Invalid Interpretation Code 0.0 - 0.9 mg/dL AO ADM SS Electrolyte Balance 6.0 mEq/L Invalid Interpretation Code 4.0 - 15.0 mEq/L AO ADM SS Globulin 2.9 G/dL Invalid Interpretation Code AO ADM SS Glucose [Mass/Vol] 105 mg/dL Invalid Interpretation Code 83 - 110 mg/dL AO ADM SS Natriuretic peptide.B prohormone N-Terminal [Mass/Vol] 578 pg/mL Invalid Interpretation Code 0 - 450 pg/mL AO ADM SS Phosphate [Mass/Vol] 3.7 mg/dL Invalid Interpretation Code 2.3 - 4.1 mg/dL AO ADM SS Potassium [Moles/Vol] 4.0 mmol/L Invalid Interpretation Code 3.5 - 5.1 mmol/L AO ADM SS Protein [Mass/Vol] 6.1 G/dL Invalid Interpretation Code 6.4 - 8.2 G/dL AO ADM SS Sodium [Moles/Vol] 145 mmol/L Invalid Interpretation Code 136 - 145 mmol/L AO ADM SS Triglyceride [Mass/Vol] 132 mg/dL Invalid Interpretation Code 0 - 150 mg/dL AO ADM SS Urea nitrogen [Mass/Vol] 13 mg/dL Invalid Interpretation Code 7 - 18 mg/dL AO ADM SS Urea nitrogen/Creatinine [Mass ratio] 14 ratio Invalid Interpretation Code 7 - 27 ratio AO ADM SS Uric Acid Lvl 4.0 mg/dL Invalid Interpretation Code 2.6 - 6.2 mg/dL AO ADM SS Vit. D 25-Hydroxy 49.9 ng/mL Invalid Interpretation Code AO ADM SS LABORATORYOrdered By: Yolanda Nascimento on 01-27-2022 Basophil, Absolute 0.1 103/mcL Invalid Interpretation Code 0.0 - 0.2 10^3/mcL AO Workflow SS Basophils/100 WBC (Bld) 1.0 % Invalid Interpretation Code 0.0 - 2.5 % AO Workflow SS Eosinophil, Absolute 0.2 103/mcL Invalid Interpretation Code 0.0 - 0.4 10^3/mcL AO Workflow SS Eosinophils/100 WBC (Bld) 3.6 % Invalid Interpretation Code 0.0 - 7.0 % AO Workflow SS Erythrocyte distribution width (RBC) [Ratio] 14.4 % Invalid Interpretation Code 11.5 - 14.5 % AO Workflow SS ESR 15 minute reading (Bld) [Velocity] 24 mm/hr Invalid Interpretation Code 0 - 30 mm/hr AO Man Heme SS Hematocrit (Bld) [Volume fraction] 38.9 % Invalid Interpretation Code 37.0 - 47.0 % AO Workflow SS Hemoglobin (Bld) [Mass/Vol] 13.1 G/dL Invalid Interpretation Code 12.0 - 16.0 G/dL AO Workflow SS Lymphocyte, Absolute 1.5 103/mcL Invalid Interpretation Code 0.8 - 3.9 10^3/mcL AO Workflow SS Lymphocytes/100 WBC (Bld) 23.5 % Invalid Interpretation Code 10.0 - 50.0 % AO Workflow SS MCH (RBC) [Entitic mass] 30.1 pg Invalid Interpretation Code 27.0 - 31.2 pg AO Workflow SS MCHC 33.8 G/dL Invalid Interpretation Code 33.0 - 37.0 G/dL AO Workflow SS MCV (RBC) [Entitic vol] 89.2 fL Invalid Interpretation Code 80.0 - 94.0 fL AO Workflow SS Monocyte, Absolute 0.4 103/mcL Invalid Interpretation Code 0.2 - 1.0 10^3/mcL AO Workflow SS Monocytes/100 WBC (Bld) 7.0 % Invalid Interpretation Code 1.7 - 13.0 % AO Workflow SS Neutrophil, Absolute 4.2 103/mcL Invalid Interpretation Code 2.9 - 6.2 10^3/mcL AO Workflow SS Neutrophils/100 WBC (Bld) 64.9 % Invalid Interpretation Code 37.0 - 80.0 % AO Workflow SS Platelet mean volume (Bld) [Entitic vol] 10.4 fL Invalid Interpretation Code 7.4 - 10.4 fL AO Workflow SS Platelets (Bld) [#/Vol] 172 103/mcL Invalid Interpretation Code 130 - 400 10^3/mcL AO Workflow SS RBC (Bld) [#/Vol] 4.37 106/mcL Invalid Interpretation Code 4.20 - 5.40 10^6/mcL AO Workflow SS WBC (Bld) [#/Vol] 6.4 103/mcL Invalid Interpretation Code 4.6 - 10.8 10^3/mcL AO Workflow SS LABORATORYOrdered By: SYSTEM SYSTEM on 01-27-2022 GFR 71 ml/min/1.73sqm Invalid Interpretation Code AO Chemistry S GFR Non- 58 ml/min/1.73sqm Invalid Interpretation Code AO Chemistry S Parathyrin.intact [Mass/Vol] 120.0 pg/mL Invalid Interpretation Code 18.5 - 88.0 pg/mL AH ADM SS LOCO DIAG W RENATO LTon 022 [facility] US BREAST LTD LTon 2 [facility] No Panel Informationon 04-29 Culture Wound Aerobe Few normal skin bonilla ra present. Sensitivity testing not indicated. [facility] Work Phone: GS 2+ Polymorphonuclear cells 3+ Gram Negative Rods 2+ Gram Positive Cocci [facility] Work Phone: LABORATORYOrdered By: Blanca Colin on 03-06-2021 Albumin BCP dye [Mass/Vol] 3.4 G/dL Invalid Interpretation Code 3.4 - 4.8 G/dL AO ADM SS Albumin/Globulin [Mass ratio] 1.1 {ratio} Invalid Interpretation Code 1.1 - 2.5 ratio AO ADM SS ALP [Catalytic activity/Vol] 131 U/L Invalid Interpretation Code 40 - 135 U/L AO ADM SS ALT With P-5'-P [Catalytic activity/Vol] 20 U/L Invalid Interpretation Code 14 - 59 U/L AO ADM SS AST With P-5'-P [Catalytic activity/Vol] 19 U/L Invalid Interpretation Code 10 - 40 U/L AO ADM SS Bilirubin [Mass/Vol] 0.6 mg/dL Invalid Interpretation Code 0.2 - 1.0 mg/dL AO ADM SS Calcium [Mass/Vol] 9.2 mg/dL Invalid Interpretation Code 8.4 - 10.2 mg/dL AO ADM SS Chloride [Moles/Vol] 104 mmol/L Invalid Interpretation Code 98 - 107 mmol/L AO ADM SS CO2 [Moles/Vol] 28 mmol/L Invalid Interpretation Code 23 - 31 mmol/L AO ADM SS Creatinine [Mass/Vol] 0.83 mg/dL Invalid Interpretation Code 0.55 - 1.02 mg/dL AO ADM SS Electrolyte Balance 10.0 mEq/L Invalid Interpretation Code AO ADM SS Globulin 3.0 G/dL Invalid Interpretation Code AO ADM SS Glucose [Mass/Vol] 88 mg/dL Invalid Interpretation Code 83 - 110 mg/dL AO ADM SS Natriuretic peptide.B prohormone N-Terminal [Mass/Vol] 812 pg/mL Invalid Interpretation Code 0 - 450 pg/mL AO ADM SS Phosphate [Mass/Vol] 4.2 mg/dL Invalid Interpretation Code 2.3 - 4.1 mg/dL AO ADM SS Potassium [Moles/Vol] 4.6 mmol/L Invalid Interpretation Code 3.5 - 5.1 mmol/L AO ADM SS Protein [Mass/Vol] 6.4 G/dL Invalid Interpretation Code 6.4 - 8.2 G/dL AO ADM SS Sodium [Moles/Vol] 142 mmol/L Invalid Interpretation Code 136 - 145 mmol/L AO ADM SS Urea nitrogen [Mass/Vol] 14 mg/dL Invalid Interpretation Code 7 - 18 mg/dL AO ADM SS Urea nitrogen/Creatinine [Mass ratio] 17 ratio Invalid Interpretation Code 7 - 27 ratio AO ADM SS Vit. D 25-Hydroxy 38.5 ng/mL Invalid Interpretation Code AO ADM SS LABORATORYOrdered By: Shanae Block on 03-06-2021 Basophil, Absolute 0.10 103/mcL Invalid Interpretation Code 0.00 - 0.19 10^3/mcL AO Auto Heme SS Basophils/100 WBC (Bld) 1.2 % Invalid Interpretation Code 0.0 - 2.5 % AO Auto Heme SS Eosinophil, Absolute 0.30 103/mcL Invalid Interpretation Code 0.00 - 0.40 10^3/mcL AO Auto Heme SS Eosinophils/100 WBC (Bld) 4.2 % Invalid Interpretation Code 0.0 - 7.0 % AO Auto Heme SS Erythrocyte distribution width (RBC) [Ratio] 14.5 % Invalid Interpretation Code 11.5 - 14.5 % AO Auto Heme SS Hematocrit (Bld) [Volume fraction] 39.4 % Invalid Interpretation Code 37.0 - 47.0 % AO Auto Heme SS Hemoglobin (Bld) [Mass/Vol] 12.9 G/dL Invalid Interpretation Code 12.0 - 16.0 G/dL AO Auto Heme SS Lymphocyte, Absolute 1.60 103/mcL Invalid Interpretation Code 0.77 - 3.85 10^3/mcL AO Auto Heme SS Lymphocytes/100 WBC (Bld) 25.4 % Invalid Interpretation Code 10.0 - 50.0 % AO Auto Heme SS MCH (RBC) [Entitic mass] 29.5 pg Invalid Interpretation Code 27.0 - 31.2 pg AO Auto Heme SS MCHC (RBC) [Mass/Vol] 32.7 G/dL Invalid Interpretation Code 33.0 - 37.0 G/dL AO Auto Heme SS MCV (RBC) [Entitic vol] 90.1 fL Invalid Interpretation Code 80.0 - 94.0 fL AO Auto Heme SS Monocyte, Absolute 0.40 103/mcL Invalid Interpretation Code 0.15 - 1.00 10^3/mcL AO Auto Heme SS Monocytes/100 WBC (Bld) 7.1 % Invalid Interpretation Code 1.7 - 13.0 % AO Auto Heme SS Neutrophil, Absolute 3.90 103/mcL Invalid Interpretation Code 2.85 - 6.16 10^3/mcL AO Auto Heme SS Neutrophils/100 WBC (Bld) 62.1 % Invalid Interpretation Code 37.0 - 80.0 % AO Auto Heme SS Platelet mean volume (Bld) [Entitic vol] 11.3 fL Invalid Interpretation Code 7.4 - 10.4 fL AO Auto Heme SS Platelets (Bld) [#/Vol] 194 103/mcL Invalid Interpretation Code 130 - 400 10^3/mcL AO Auto Heme SS RBC (Bld) [#/Vol] 4.38 106/mcL Invalid Interpretation Code 4.20 - 5.40 10^6/mcL AO Auto Heme SS WBC (Bld) [#/Vol] 6.20 103/mcL Invalid Interpretation Code 4.60 - 10.80 10^3/mcL AO Auto Heme SS LABORATORYOrdered By: SYSTEM SYSTEM on 03-06-2021 GFR 81 ml/min/1.73sqm Invalid Interpretation Code AO Chemistry S GFR Non- 67 ml/min/1.73sqm Invalid Interpretation Code AO Chemistry S Vital Signs Date Time Vital Sign Value Performing Clinician Facility 07-04-2024 20:56-0400 Body temperature 98.2 [degF] Dr. Frank Morales DO Work Phone: [facility] 07-04-2024 20:56-0400 Diastolic blood pressure 72 mm[Hg] Dr. Frank Morales DO Work Phone: [facility] 07-04-2024 20:56-0400 Heart rate 61 /min Dr. Frank Morales DO Work Phone: [facility] 07-04-2024 20:56-0400 Respiratory rate 15 /min Dr. Frank Morales DO Work Phone: [facility] 07-04-2024 20:56-0400 SaO2% (BldA) [Mass fraction] 92 % Dr. Frank Morales DO Work Phone: [facility] 07-04-2024 20:56-0400 Systolic blood pressure 166 mm[Hg] Dr. Frank Morales DO Work Phone: [facility] 07-04-2024 17:20-0400 Body mass index (BMI) [Ratio] 36.9 kg/m2 Dr. Frank Morales DO Work Phone: [facility] 07-04-2024 17:20-0400 Body weight 91.[address] Frank Morales DO Work Phone: [facility] 07-04-2024 16:19-0400 Body height 157.[address] Frank Morales DO Work Phone: [facility] 02-21-2024 12:33-0500 Body temperature 97.52 [degF] DR FRANK MORALES DO [facility] 02-21-2024 12:33-0500 Diastolic Blood Pressure Non-Invasive 96 mm[Hg] DR FRANK MORALES DO [facility] 02-21-2024 12:33-0500 Heart rate 54 /min DR FRANK MORALES DO [facility] 02-21-2024 12:33-0500 Respiratory rate 16 /min DR FRANK MORALES DO [facility] 02-21-2024 12:33-0500 Systolic Blood Pressure Non-Invasive 169 mm[Hg] DR FRANK MORALES DO [facility] 08-19-2023 12:01-0400 Blood Pressure Cuff Size DR FRANK MORALES DO [facility] 08-19-2023 12:01-[address] FRANK MORALES DO [facility] 08-19-2023 12:01-[address] FRANK MORALES DO [facility] 08-19-2023 12:01-0400 Body temperature 97.7 [degF] DR FRANK MORALES DO [facility] 08-19-2023 12:01-0400 Heart rate 52 /min DR FRANK MORALES DO [facility] 08-19-2023 12:01-0400 Reason For Taking VItal Signs DR FRANK MORALES DO [facility] 06-25-2023 09:39-0400 Body temperature 97.39 [degF] Sahra Orozco [employer] Work Phone: [facility] 06-25-2023 09:39-0400 Body weight 93.35 kg Sahra Orozco SAFETY NET MAKER.[employer] Work Phone: [facility] 06-25-2023 09:39-0400 Diastolic blood pressure 74 mm[Hg] Sahra Orozco SAFETY NET MAKER.[employer] Work Phone: [facility] 06-25-2023 09:39-0400 Heart rate 56 /min Sahra Okeefeenter SAFETY NET MAKER.[employer]ARMWORKER Work Phone: [facility] 06-25-2023 09:39-0400 SaO2% (BldA) [Mass fraction] 96 % Sahra Okeefeenter SAFETY NET MAKER.[employer] F[employer]WORK[employer] Work Phone: [facility] 06-25-2023 09:39-0400 Systolic blood pressure 139 mm[Hg] Sahra Okeefeenter SAFETY NET MAKER.[employer]WORK[employer] Work Phone: [facility] 02-16-2023 10:54-[address] FRANK MORALES DO [facility] 02-16-2023 10:54-[address] FRANK MORALES DO [facility] 02-16-2023 10:54-0500 Body temperature 97.88 [degF] DR FRANK MORALES DO [facility] 02-16-2023 10:54-0500 Diastolic Blood Pressure Non-Invasive 90 mm[Hg] DR FRANK MORALES DO [facility] 02-16-2023 10:54-0500 Heart rate 69 /min DR FRANK MORALES DO [facility] 02-16-2023 10:54-0500 Reason For Taking VItal Signs DR FRANK MORALES DO [facility] 02-16-2023 10:54-0500 Respiratory rate 18 /min DR FRANK MORALES DO [facility] 02-16-2023 10:54-0500 Systolic Blood Pressure Non-Invasive 137 mm[Hg] DR FRANK MORALES DO [facility] 06-01-2022 13:46-0400 Body height 155.6 cm Sahra Okeefeenter SAFETY NET MAKER.[employer]WORK[employer] Work Phone: [facility] 06-01-2022 13:46-0400 Body temperature 97 [degF] Leonardo Orozco SAFETY NET MAKER.[employer]WORK[employer] Work Phone: [facility] 06-01-2022 13:46-0400 Body weight 94.58 kg Sahra Orozco SAFETY NET MAKER.[employer] Work Phone: [facility] 06-01-2022 13:46-0400 Diastolic blood pressure 62 mm[Hg] Leonardo Orozco SAFETY NET MAKER.[employer] Work Phone: [facility] 06-01-2022 13:46-0400 Heart rate 54 /min Sahra Orozco SAFETY NET MAKER.[employer] Work Phone: [facility] 06-01-2022 13:46-0400 Systolic blood pressure 100 mm[Hg] Sahra Orozco SAFETY NET MAKER.[employer]WORK[employer] Work Phone: [facility] 11-26-2021 10:57-0400 Body height 157.5 cm Leonardo Orozco SAFETY NET MAKER.[employer] F[employer]WORK[employer] Work Phone: [facility] 11-26-2021 10:57-0400 Body temperature 97.81 [degF] Sahra Orozco SAFETY NET MAKER.[employer] Work Phone: [facility] 11-26-2021 10:57-0400 Body weight 92.76 kg Sahra Orozco SAFETY NET MAKER.[employer] Work Phone: [facility] 11-26-2021 10:57-0400 Diastolic blood pressure 80 mm[Hg] Sahra Orozco SAFETY NET MAKER.[employer] Work Phone: [facility] 11-26-2021 10:57-0400 Heart rate 48 /min Sahra Orozco SAFETY NET MAKER.[employer] Work Phone: [facility] 11-26-2021 10:57-0400 SaO2% (BldA) [Mass fraction] 96 % Leonardo Orozco SAFETY NET MAKER.[employer] Work Phone: [facility] 11-26-2021 10:57-0400 Systolic blood pressure 172 mm[Hg] Leonardo Orozco SAFETY [employer] MAKER.[employer] Work Phone: [facility] Encounters Encounter Date Encounter Type Care Provider Facility Start: 10-09-[address] FRANK Mcfadden ty:[facility] Start: 10-06-2024 End: 10-10-[address] FRANK MORALES DO Facility:[facility] Start: 10-06-2024 End: 10-10-[address] FRANK MORALES DO [facility] Start: 09-29-[address] FRANK Mcfadden ty:[facility] Start: 09-28-2024 End: 10-02-[address] FRANK MORALES DO Facility:[facility] Start: 09-28-2024 End: 10-02-[address] FRANK MORALES DO [facility] Start: 09-14-2024 End: 09-14-[address] Frank Morales DO Work Phone: -Ultrasound [facility] Start: 09-14-2024 End: 09-14-[address] Maryann Jackson MD -Ultrasound [facility] Work Phone: Start: 09-14-2024 End: 09-14-20[facility] Start: 09-05-2024 End: 09-05-[address] Frank Morales DO Work Phone: -Laboratory [place] Start: 09-05-2024 End: 09-05-[address] Maryann Jackson MD -Labor[facility] [place] Work Phone: Start: 09-05-2024 End: 09-05-2024 [facility] Start: 08-23-2024 End: 08-23-[address] FRANK MORALES DO Facility:[facility] Start: 08-23-2024 End: 08-23-[address] FRANK MORALES DO [facility] Start: 07-27-2024 End: 07-27-[address] Josr Gomez MD -[facility] Start: 07-27-2024 End: 07-27-2024 ambulatory Josr Gomez Facility:[facility] Start: 07-25-2024 End: 07-25-2024 ambulatory SAHRAELIECER OKEEFEOROZCO Facility:[facility] Start: 07-19-2024 End: 07-21-2024 Follow-up encounter Sahra Orozco [employer] Work Phone: Hematology/Oncology Start: 07-14-2024 ambulatory SAHRA OROZCO Facilit y:[facility] Start: 07-14-2024 End: 07-14-2024 Subsequent hospital visit by physician [facility] Comment on above: Personal history of breast cancer [Z85.3] Start: 07-04-2024 End: 07-04-2024 Emergency department patient visit Dr. Keven Orourke DO -Emergency Department Work Phone: Start: 06-06-2024 End: 06-06-[address] Frank Morales DO Work Phone: [facility] Work Phone: Start: 06-06-2024 End: 06-06-[address] Maryann Jackson MD -Laboratory, [place] Work Phone: Start: 06-06-2024 End: 06-06-2024 ambulatory Frank Morales Facility:[facility] Start: 05-20-2024 End: 05-24-[address] FRANK MORALES DO Facility:[facility] Start: 04-21-2024 End: 04-21-[address] FRANK MOARLES DO Facility:[facility] Start: 04-21-2024 End: 04-21-[address] FRANK MORALES DO [facility] Start: 04-14-2024 End: 04-14-[address] Maryann Jackson MD -Laboratory, [place] Work Phone: Start: 04-14-2024 End: 04-14-2024 ambulatory Frank Morales Facility:[facility] Start: 02-23-2024 End: 02-23-2024 ambulatory Frank Morales Facility:[facility] Start: 02-23-2024 End: 02-23-[address] Frank Morales DO -Physical Therapy Work Phone: Start: 02-21-2024 End: 02-21-[address] FRANK MORALES DO Facility:[facility] Start: 02-21-2024 End: 02-21-[address] FRANK MORALES DO [facility] Start: 02-08-2024 End: 02-08-2024 [facility] Start: 01-18-2024 End: 01-18-[address] FRANK MORALES DO Facility:[facility] Start: 01-18-2024 End: 01-18-[address] FRANK MORALES DO [facility] Start: 12-06-2023 End: 12-06-2023 [facility] Start: 11-01-2023 End: 11-01-2023 ambulatory Frank Morales Facility:[facility] Start: 10-29-2023 End: 10-29-[address] FRANK MORALES DO Facility:[facility] Start: 10-29-2023 End: 10-29-[address] FRANK MORALES DO [facility] Start: 10-07-2023 End: 10-07-[address] FRANK MORALES DO Facility:[facility] Start: 08-19-2023 End: 08-19-[address] FRANK MORALES DO Facility:[facility] Start: 08-19-2023 End: 08-19-[address] FRANK MORALES DO [facility] Start: 06-25-2023 End: 06-25-2023 ambulatory Sahra Orozco APRN.[employer] Work Phone: Hematology/Oncology Comment on above: Personal history of breast cancer (Primary Dx); Encounter for screening mammogram for high-risk patient Start: 06-25-2023 End: 06-25-2023 Patient encounter procedure Sahra Orozco APRN.[employer]WORK[employer] Work Phone: [facility] Start: 06-24-2023 Documentation procedure Mammog rayna Coordinator [facility] Start: 06-24-2023 Letter encounter Mammography Coordinator [facility] Department Start: 06-24-2023 Telephone encounter Sahra gonzáles APRN.[employer]WORK[employer] Work Phone: Hematology/Oncology Start: 06-23-2023 End: 06-23-2023 Subsequent hospital visit by physician Screen Mammo [facility] Mammogram Comment on above: Malignant neoplasm o f central portion of left breast in female, estrogen receptor positive (HCC) [C50.112, Z17.0] Start: 04-27-2023 End: 05-18-[address] FRANK MORALES DO Facility:[facility] Start: 04-23-2023 End: 04-23-[address] FRANK MORALES DO Facility:[facility] Start: 04-23-2023 End: 04-23-[address] FRANK MORALES DO [facility] Start: 03-12-2023 End: 03-12-[address] FRANK MORALES DO Facility:[facility] Start: 03-12-2023 End: 03-12-[address] FRANK MORALES DO [facility] Start: 02-16-2023 End: 02-16-[address] FRANK MORALES DO Facility:[facility] Start: 02-16-2023 End: 02-16-[address] FRANK MORALES DO [facility] Start: 01-11-2023 End: 01-15-2023 [facility]-[employer] Facility:[facility] Start: 01-11-2023 End: 01-15-[address] [facility] SAFETY NET MAKER-[employer] FARMWORKER [facility] Start: 12-21-2022 End: 12-21-[address] FRANK MORALES DO Facility:[facility] Start: 11-24-2022 End: 11-28-[address] FRANK MORALES DO Facility:[facility] Start: 11-24-2022 End: 11-28-[address] FRANK MORALES DO [facility] Start: 08-17-2022 End: 08-21-2022 Outreach Lab MITCH VALERA MD [facility] Start: 08-14-2022 End: 08-14-[address] FRANK MORALES DO [facility] Start: 06-22-2022 End: 06-22-[address] [facility] Work Phone: Start: 06-22-2022 End: 06-22-[address] [facility]/Neurology Start: 06-01-2022 End: 06-01-2022 ambulatory Sahra Orozco SAFETY NET MAKER.[employer] Work Phone: Hematology/Oncology Comment on above: Malignant neoplasm o f central portion of left breast in female, estrogen receptor positive (HCC) (Primary Dx); Encounter for screening mammogram for high-risk patient Start: 06-01-2022 End: 06-01-2022 Patient encounter procedure Sahra Orozco APRN.[employer] Work Phone: [facility] Start: 05-29-2022 Documentation procedure Mammog rayna Coordinator [facility] Start: 05-29-2022 Letter encounter Mammography Coordinator [place] [facility] Department Start: 05-29-2022 Telephone encounter Sahra gonzáles SAFETY NET MAKER.TOBACCO FARMWORKER Work Phone: Hematology/Oncology Comment on above: Results Start: 05-28-2022 End: 05-28-2022 Subsequent hospital visit by physician Screen Mammo [facility]ly [facility] Wstr Mammogram Start: 04-06-2022 End: 04-06-[address] [facility] Work Phone: Start: 04-06-2022 End: 04-06-[address] [facility]-Laboratory, Specimen Start: 01-27-2022 End: 01-27-[address] FRANK MORALES DO [facility] Start: 01-27-2022 End: 01-27-2022 Well adult monitoring check done DR FRANK MORALES DO [facility] Start: 12-25-2021 Telephone encounter Sahra gonzáles SAFETY NET MAKER.TOBACCO FARMWORKER Work Phone: Hematology/Oncology Comment on above: Results Start: 12-24-2021 End: 12-24-2021 Subsequent hospital visit by physician Us [facility]ly [facility] Wstr Mob 1 Work Phone: Radiology Comment on above: Malignant neoplasm o f central portion of left breast in female, estrogen receptor positive (HCC) [C50.112, Z17.0] Start: 11-26-2021 End: 11-26-2021 ambulatory Sahra Orozco SAFETY NET MAKER.TOBACCO FARMWORKER Work Phone: Hematology/Oncology Comment on above: Malignant neoplasm o f central portion of left breast in female, estrogen receptor positive (HCC) (Primary Dx); Encounter for screening mammogram for high-risk patient; Breast nodule Start: 11-26-2021 End: 11-26-2021 Patient encounter procedure Sahra Orozco SAFETY NET MAKER.TOBACCO FARMWORKER Work Phone: [facility] Start: 09-17-2021 End: 09-17-[address] [facility]-Physical Therapy Start: 08-14-2021 End: 08-14-[address] FRANK MORALES DO [facility] Start: 04-29-2021 End: 05-03-[address] FRANK MORALES DO [facility] Start: 03-06-2021 End: 03-06-[address] FRANK MORALES DO [facility] Start: 01-17-2021 End: 01-17-[address] FRANK MORALES DO [facility] Procedures Date Procedure Procedure Detail Performing Clinician Start: 09-14-[address] Frank Morales DO Work Phone: Start: 07-27-2024 X-ray of thoracic sp ine, four or more views Dr. Frank Morales DO Work Phone: Start: 07-04-2024 Plain chest X-ray Dr. Jim Morales DO Work Phone: Start: 05-28-2022 Screening mammograph y bi 2-view breast inc cad Sahra Orozco SAFETY NET MAKER.TOBACCO FARMWORKER Work Phone: Start: 12-24-2021 Us breast uni real t tomas with image limited Sahra Orozco SAFETY NET MAKER.TOBACCO FARMWORKER Work Phone: Start: 12-24-2021 LOCO DIAG W RENATO LT Fritz Orozco SAFETY NET MAKER.TOBACCO FARMWORKER Work Phone: Start: 08-24-2019 Adult depression scr eening assessment Sahra Orozco SAFETY NET MAKER.TOBACCO FARMWORKER Work Phone: Start: 12-09-[address] FRANK WALTER DO Arthroplasty of knee DR FRANK MORALES DO Comment on above: Bilateral knee repla cement LEFT Bacteria identification test Biopsy of breast DR FRANK LINO DO Comment on above: left lumpectomy - maligna nt Cataract (morphologi c abnormality) DR FRANK MORALES DO Cholecystectomy DR FRANK Lockhart DO Colonoscopy DR FRANK MORALES D O Hysterectomy DR FRANK Benitez O Comment on above: at age 35, complete hyst d/t tumor the size of a grapefruit Plan of Treatment Date Care Activity Detail Author Start: 03-12-2033 Urine microalbumin profile DTaP,Tdap,Td Vaccine (2 - Td or Tdap) [facility] Start: 07-25-2024 End: 07-25-2024 ambulatory 07/25/2024 11:00 AM EDT Visit (SP) Office Hematology/Oncology [address] [place], [place] [id number] Sahra Orozco, SAFETY NET MAKER.TOBACCO FARMWORKER [address] [place], [place] [id number] OV/no show 07/21 ov* Hematology/Oncology Comment on above: OV/no show 07/21 ov* Start: 07-21-2024 End: 07-21-2024 ambulatory 07/21/2024 10:00 AM EDT Visit (SP) Office Hematology/Oncology [address] [place], [place] [id number] Sahra Orozco, MARIANA.TOBACCO FARMWORKER [address] [place], [place] [id number] OV/MAMM 07/14* Hematology/Oncology Comment on above: OV/MAMM 07/14* Start: 07-04-2024 [facility] Start: 07-04-2024 End: 07-04-2024 [facility] Start: 03-08-2024 Advance Directive Discussion Advance Directive Discussion [facility] Start: 11-07-2023 Covid-19 Vaccine ( season) Covid-19 Vaccine () [facility] Start: 06-02-2023 BP CONTROLLED (<130/80) BP CONTROLLE D (<130/80) [facility] Start: 03-08-2023 Advance Directive Discussion Advance Directive Discussion [facility] Start: 03-08-2023 Behavioral Health Screening Behavioral Health Screening [facility] Start: 11-06-2022 Covid-19 Vaccine () Covid-19 Vaccine () [facility] Start: 11-06-2022 Influenza vaccination Influenza Vacc ine (#1) [facility] Start: 03-08-2022 ADVANCE DIRECTIVE DISCUSSION ADVANCE DIRECTIVE DISCUSSION [facility] Start: 03-08-2022 DEPRESSION ASSESSMENT DEPRESSION ASS ESSMENT [facility] Start: 12-30-2021 COVID-19 VACCINE (5 - Booster for Pfizer series) COVID-19 VACCINE (5 - Booster for Pfizer series) [facility] Start: 11-06-2021 Influenza vaccination INFLUENZA (#1) [facility] Start: 06-20-2021 COVID-19 VACCINE (4 - Booster for Pfizer series) COVID-19 VACCINE (4 - Booster for Pfizer series) [facility] Start: 03-08-2021 ADVANCE DIRECTIVE DISCUSSION ADVANCE DIRECTIVE DISCUSSION [facility] Start: 03-08-2021 DEPRESSION ASSESSMENT DEPRESSION ASS ESSMENT [facility] Start: 08-23-2020 Adult depression screening assessment DEPRESSION SCREENING [facility] Start: 07-14-2018 RSV Vaccine (1 - 1-d ose 75+ series) RSV Vaccine (1 - 1-dose 75+ series) [facility] Start: 01-12-2011 DIABETES SCREEN [facility] SCREEN [facility] Start: 01-12-2011 Diabetes Screening Diabetes Screenin g [facility] Start: 05-03-2010 Shingrix Vaccine (2 of 3) Shingrix Vaccine (2 of 3) [facility] Start: 07-14-2008 Pneumococcal Vaccine : 65+ (1 - PCV) Pneumococcal Vaccine: 65+ (1 - PCV) [facility] Start: 07-14-2008 PNEUMOCOCCAL: 65+ (1 - PCV) PNEUMOCOCCAL: 65+ (1 - PCV) [facility] Start: 2003 RSV Vaccine (1 - 1-d ose 60+ series) RSV Vaccine (1 - 1-dose 60+ series) [facility] Start: 07-14-1993 SHINGRIX VACCINE (1 of 2) SHINGRIX VACCINE (1 of 2) [facility] Start: 07-14-1962 Urine microalbumin profile [facility] Start: 07-14-1961 ANNUAL PCP TEAM GAS STATION SUPERVISOR ANAMIKA DISEASE VISIT ANNUAL PCP TEAM CHRONIC DISEASE VISIT [facility] Start: 07-14-1961 Anxiety Screening Anxiety Screening [facility] Start: 07-14-1961 BP CONTROLLED (<130/80) BP CONTROLLE D (<130/80) [facility] Start: 07-14-1961 Depression Screening Depression Scre ening [facility] Start: 07-14-1961 HEPATITIS C SCREENING HEPATITIS C SC REENING [facility] End: 07-24-2024 DBT Breast - bilateral screening LOCO SCREENING W RENATO Radiology Routine Personal history of breast cancer Encounter for screening mammogram for high-risk patient 1 Occurrences starting 06/25/2023 until 07/24/2024 [facility] Work Phone: Comment on above: 1 Occurrences starti ng 06/25/2023 until 07/24/2024 DBT Breast - bilater al screening LOCO SCREENING W RENATO Radiology Routine Personal history of breast cancer Encounter for screening mammogram for high-risk patient 07/14/2024 10:09 AM EDT [facility] Work Phone: End: 12-26-2022 Diagnostic mammography computer-aided detcj uni LOCO DIAGNOSTIC LT Radiology Routine Malignant neoplasm of central portion of left breast in female, estrogen receptor positive (HCC) Breast nodule 1 Occurrences starting 11/26/2021 until 12/26/2022 [facility] Work Phone: Comment on above: 1 Occurrences starti ng 11/26/2021 until 12/26/2022 End: 07-01-2023 LOCO SCREENING LOCO SCREENING Radiology Routine Malignant neoplasm of central portion of left breast in female, estrogen receptor positive (HCC) Encounter for screening mammogram for high-risk patient 1 Occurrences starting 06/01/2022 until 07/01/2023 [facility] Work Phone: Comment on above: 1 Occurrences starti ng 06/01/2022 until 07/01/2023 End: 12-26-2022 LOCO SCREENING W RENATO LOCO SCREENING W RENATO Radiology Routine Malignant neoplasm of central portion of left breast in female, estrogen receptor positive (HCC) Encounter for screening mammogram for high-risk patient 1 Occurrences starting 11/26/2021 until 12/26/2022 [facility] Work Phone: Comment on above: 1 Occurrences starti ng 11/26/2021 until 12/26/2022 MG Breast Screening LOCO SCREENIN G Radiology Routine Malignant neoplasm of central portion of left breast in female, estrogen receptor positive (HCC) Encounter for screening mammogram for high-risk patient 06/23/2023 11:43 AM EDT [facility] Work Phone: Patient Education ED Chest Pain, Uncertain Cause ED Chest Wall Contusion [facility] Work Phone: End: 12-26-2022 Us breast uni real time with image limited US BREAST LTD LT Radiology Routine Malignant neoplasm of central portion of left breast in female, estrogen receptor positive (HCC) Breast nodule 1 Occurrences starting 11/26/2021 until 12/26/2022 [facility] Work Phone: Comment on above: 1 Occurrences starti ng 11/26/2021 until 12/26/2022 [facility] Immunizations Immunization Date Immunization Notes Care Provider [facility] 01-18-2024 influenza, high dose seasonal, preservative-free; Translations: [Fluad PF Prefilled Syringe ] DR FRANK MORALES DO [facility] 09-21-2023 Pneumococcal conjuga te PCV20, polysaccharide [id number] conjugate, adjuvant, PF; Translations: [Prevnar 20] DR FRANK MORALES DO [facility] 03-12-2023 influenza, high dose seasonal, preservative-free; Translations: [Fluad Quadrivalent PF ] DR FRANK MORALES DO [facility] 03-12-2023 tetanus toxoid, redu samantha diphtheria toxoid, and acellular pertussis vaccine, adsorbed; Translations: [Boostrix (Tdap)] DR FRANK MORALES DO [facility] 03-13-2022 influenza, injectabl e, quadrivalent, contains preservative; Translations: [Fluarix PF Quadrivalent ] DR FRANK MORALES DO [facility] Comment on above: Result Comment: Flua d not available, Patient did not want to go to local pharmacy per recomendation. 03-13-2022 influenza virus vacc ine, unspecified formulation Screen [facility] 11-04-2021 SARS-CoV-2 mRNA (tozinameran) vaccine DR FRANK MORALES DO [facility] 02-19-2021 SARS-CoV-2 mRNA (tozinameran) vaccine DR FRANK MORALES DO [facility] 05-22-2020 SARS-CoV-2 mRNA (tozinameran) vaccine DR FRANK MORALES DO [facility] 04-22-2020 SARS-CoV-2 mRNA (tozinameran) vaccine DR FRANK MORALES DO [facility] Comment on above: Result Comment: 2020: [id number] 01-12-2019 influenza, injectabl e, quadrivalent, preservative free; Translations: [Fluarix PF Quadrivalent ] DR FRANK MORALES DO [facility] Comment on above: Early/Late Reason: N ew Med Order 09-04-2018 influenza virus vacc ine, unspecified formulation DR FRANK MORALES DO [facility] 11-17-2016 influenza virus vacc ine, unspecified formulation DR FRANK MORALES DO [facility] 09-29-2016 pneumococcal conjuga te vaccine, [address] FRANK MORALES DO [facility] 09-15-2013 pneumococcal polysaccharide vaccine, [address] FRANK MORALES DO [facility] 01-16-2013 influenza virus vacc ine, unspecified formulation DR FRANK MORALES DO [facility] 03-08-2010 zoster vaccine, live DR FRANK MORALES DO [facility] Payers Date Payer Category Payer Private Health Insurance [id number] 2024 [employer] ( and others) [id number] 2023 Self-pay [id number] 2023 [employer] ( and others) [id number] 2022 Medicare [id number] 2022 Government (not [facility] or Medicaid) [facility] [id number] 2022 [facility] ( and others) [id number] 2016 Unknown [id number]. 1.13.159. 2.7.3.760520.315 2008 Medicare [id number]. 1.13.159. 2.7.3.606059.315 2008 Medicare [id number] 1945 Unknown [id number] 2.840.1.902548.3.579. 2 1943 Unknown [id number] .840.1.284443.3.579. 2 1943 Unknown [id number] 840.1.951642.3.579. 2 1943 Unknown [id number] .840.1.217438.3.579. 2 1943 Unknown [id number] 2.840.1.713476.3.579. 2 1943 Unknown [id number] .840.1.946268.3.579. 2 1943 Unknown [id number] 2.840.1.838817.3.579. 2 1943 Unknown [id number] 2.16.840.1.934136.3.579. 2. 1943 Unknown [id number] 2.16.840.1.163337.3.579. 2. 1943 Unknown [id number] 2.16.840.1.375732.3.579. 2. 1943 Unknown [id number] 2.16.840.1.229004.3.579. 2. 1943 Unknown [id number] 2.16.840.1.246519.3.579. 2. 1943 Unknown [id number] 2.16.840.1.718776.3.579. 2. 1943 Unknown [id number] 2.16.840.1.085889.3.579. 2. 1945 Unknown [id number] 2.16.840.1.114812.3.579. 2. 1945 Unknown [id number] 2.16.840.1.081486.3.579. 2. 1943 Unknown [id number] 2.16.840.1.875689.3.579. 2. 1945 Unknown [id number] 2.16.840.1.541803.3.579. 2. 1945 Unknown [id number] 2.16.840.1.195131.3.579. 2.627 Unknown [id number] 2.16.840.1.361496.3.579. 2.462 Unknown [id number] 2.16.840.1.360863.3.579. 2.462 Unknown [id number] 2.16.840.1.791910.3.579. 2.462 Unknown [id number] 2.16.840.1.607721.3.579. 2.462 Unknown [id number] 2.16.840.1.051602.3.579. 2.462 Unknown [id number] 2.16.840.1.979137.3.579. 2.462 Unknown [id number] 2.16.840.1.303843.3.579. 2.462 Unknown [id number] 2.16.840.1.440515.3.579. 2.462 Unknown [id number] 2.16.840.1.961646.3.579. 2.462 Unknown [id number] 2.16.840.1.735055.3.579. 2.462 Social History Date Type Detail Facility Start: 12-29-2018 End: 01-16-2022 Ex-smoker (finding) [facility] Comment on above: tobacco/smoke exposu re: frequent Start: 1945 Sex Assigned At Female A [facility] Start: 09-17-2021 End: 11-14-2021 Tobacco smoking status NHIS Unknown if ever smoked [facility] Start: 06-19-2017 None [facility] Start: 06-19-2017 Spouse/ Signif icant Other [facility] Start: 06-20-2017 Non-smoker [facility] Start: 11-25-1961 End: 11-26-1967 History of tobacco use Current smoker [facility] Start: 11-25-1961 End: 11-26-1967 History of tobacco use Cigarette Smoker [facility] Start: 11-25-2016 Tobacco use and exposure Smokeless tobacco non-user [facility] Start: 11-26-2021 End: 06-25-2023 Alcohol intake Current non-drinker of alcohol (finding) [facility] Start: 11-25-2016 Tobacco Comment Pt smoked one pack a week. [facility] Start: 1945 Sex Assigned At Not on file [facility] [place] Start: 12-14-2021 End: 12-24-2021 Exposure to SARS-CoV-2 (event) Not sure [facility] Start: 11-26-2021 End: 06-25-2023 History of Social function [facility] Start: 11-26-2021 End: 06-25-2023 Tobacco use panel [facility] Adult Depression Screening Assessment 0 [facility] Sexual Orientation Pastor Morales Start: 05-03-2019 End: 06-12-2024 Sex Female (finding) [facility] Start: 12-01-2022 End: 07-04-2024 Tobacco smoking status NHIS Never smoked tobacco (finding) [facility] Medical Equipment Procedure Code Equipment Code Equipment Origin al Text Equipment Identifier Dates Total replacement of knee joint DOUGH,CEMENT 6191-1-010 FDA Start: 03-07-2018 Total replacement of knee joint DOUGH,CEMENT 6191-1-010 FDA Start: 03-07-2018 Total replacement of knee joint TRIATHLON PATELLA FDA Start: 03-07-2018 Total replacement of knee joint TRIATHLON POST STAB FEM COMP FDA Start: 03-07-2018 Total replacement of knee joint TRIATHLON TIBIAL BASEPLATE FDA Start: 03-07-2018 Total replacement of knee joint TRIATHLON X3 TIBIAL INSERT-PS FDA Start: 03-07-2018 Total replacement of knee joint DOUGH,CEMENT 6191-1-010 FDA Start: 03-07-2018 Total replacement of knee joint DOUGH,CEMENT 6191-1-010 FDA Start: 03-07-2018 Total replacement of knee joint TRIATHLON PATELLA FDA Start: 03-07-2018 Total replacement of knee joint TRIATHLON POST STAB FEM COMP FDA Start: 03-07-2018 Total replacement of knee joint TRIATHLON TIBIAL BASEPLATE FDA Start: 03-07-2018 Total replacement of knee joint TRIATHLON X3 TIBIAL INSERT-PS FDA Start: 03-07-2018 Total replacement of knee joint DOUGH,CEMENT 6191-1-010 FDA Start: 03-07-2018 Total replacement of knee joint DOUGH,CEMENT 6191-1-010 FDA Start: 03-07-2018 Total replacement of knee joint TRIATHLON PATELLA FDA Start: 03-07-2018 Total replacement of knee joint TRIATHLON POST STAB FEM COMP FDA Start: 03-07-2018 Total replacement of knee joint TRIATHLON TIBIAL BASEPLATE FDA Start: 03-07-2018 Total replacement of knee joint TRIATHLON X3 TIBIAL INSERT-PS FDA Start: 03-07-2018 Total replacement of knee joint DOUGH,CEMENT 6191-1-010 FDA Start: 03-07-2018 Total replacement of knee joint DOUGH,CEMENT 6191-1-010 FDA Start: 03-07-2018 Total replacement of knee joint TRIATHLON PATELLA FDA Start: 03-07-2018 Total replacement of knee joint TRIATHLON POST STAB FEM COMP FDA Start: 03-07-2018 Total replacement of knee joint TRIATHLON TIBIAL BASEPLATE FDA Start: 03-07-2018 Total replacement of knee joint TRIATHLON X3 TIBIAL INSERT-PS FDA Start: 03-07-2018 Total replacement of knee joint DOUGH,CEMENT 6191-1-010 FDA Start: 03-07-2018 Total replacement of knee joint DOUGH,CEMENT 6191-1-010 FDA Start: 03-07-2018 Total replacement of knee joint TRIATHLON PATELLA FDA Start: 03-07-2018 Total replacement of knee joint TRIATHLON POST STAB FEM COMP FDA Start: 03-07-2018 Total replacement of knee joint TRIATHLON TIBIAL BASEPLATE FDA Start: 03-07-2018 Total replacement of knee joint TRIATHLON X3 TIBIAL INSERT-PS FDA Start: 03-07-2018 Total replacement of knee joint DOUGH,CEMENT 6191-1-010 FDA Start: 03-07-2018 Total replacement of knee joint DOUGH,CEMENT 6191-1-010 FDA Start: 03-07-2018 Total replacement of knee joint TRIATHLON PATELLA FDA Start: 03-07-2018 Total replacement of knee joint TRIATHLON POST STAB FEM COMP FDA Start: 03-07-2018 Total replacement of knee joint TRIATHLON TIBIAL BASEPLATE FDA Start: 03-07-2018 Total replacement of knee joint TRIATHLON X3 TIBIAL INSERT-PS FDA Start: 03-07-2018 Mental Status Date Assessment Result Facility 07-04-2024 Cognitive function Awake;Alert;A ppropriate;Follo ws Commands [facility] Work Phone: 02-16-2023 Mental Status Orientation Oriented x 4 [facility] Clinical Notes 11-26-2021 to 09-14-2024 Telephone Encounter - Tawanna Vega - 07/21/2024 10:47 AM EDTTelephone Encounter - Tawanna Vega - 07/21/2024 10:47 AM EDTTelephone Encounter - Sahra Orozco APRN.CNP - 07/19/2024 11:11 AM EDT Note Date & Type Note Facility 09-14-2024 Radiology Diagnostic study note [facility] Imaging Services [address] [place], [place] [address] Abdomen Limited MR#: [id number] Acct: [id number] Name: CIARA SAWYER I Rep #: [id number] : 1945 F 79 From: Trey Martinez MD PCP: Dr. Frank Morales DO Status: REG CLI Study:Abdomen Limited Date of Exam: 09/05 Exam# [id number] Ordering Dr: Maryann Jackson MD PROCEDURE: ABDOMEN LIMITED 09/14/2024 REASON FOR EXAM: ELEVATED LIVER ENZYMES COMPARISON: None FINDINGS: Liver: Diffusely echogenic suggesting fatty infiltration. The liver is not enlarged. It measures 13.7 cm. Gallbladder: Surgically absent. Common bile duct: Dilated measuring up to 9 mm . Pancreas: Normal Other: Visualized portions of the right kidney are unremarkable. No right upperquadrant ascites. US/Abdomen Limited IMPRESSION: Fatty infiltration of the liver. Status post cholecystectomy. Reading Location: [place] [address] CC: Dr. Frank Morales DO; Dr. Maryann Jackson MD ~ Supervisor Fabrication Department: Signed [facility] 08-23-2024 Nurse Progress note patient tolerated prolia injection without signs or symptoms of a reaction Digitally Signed by Flaquita Pink RN on 08/23/2024 01:17 PM [facility] 07-25-2024 Note HNO ID: [id number] Author: SAHRA OROZCO APRN.CNP Service: ? Author Type: Nurse Practitioner Type: Progress Notes Filed: 07/26/2024 10:22 Note Text: Chief Complaint Patient presents with: Established Patient HPI: Ciara Sawyer is a 79 year old female who presents here today for follow up breast cancer. Per Dr. Reyes's previous note: H/o HTN and CHF (?etiology) who was found to have an abnormality in the left breast on recent screening mammogram. Patient underwent a bilateral digital screening mammogram in October 2016. There was a 6 mm irregular density noted in the left breast appearing to be indeterminate. Patient underwent a subsequent ultrasound study on 10/20/2016. There was a 6 mm oval mass with an indistinct margin observed in the left breast at 2:00 anterior depth. It was hypoechoic. It correlated with the mammogram findings. The patient was referred to Dr. Farrar who performed a core needle biopsy on 11/04/2016. The pathology demonstrated an invasive well-differentiated ductal carcinoma. ER/CO were both positive at 90% and 80% respectively. HER-2 was quantified at 2+. Underwent a left-sided lumpectomy with left axillary sentinel lymph node dissection on 12/03/2016. The final pathology demonstrated that within the lumpectomy specimen there was an 8 mm invasive ductal carcinoma. It was grade 1. DCIS was absent. There was a unifocal tumor. Margins were free of carcinoma. All were greater than 1 cm. 3 lymph nodes were retrieved. All were negative for disease. RADIATION:01/26/17 to 02/16/17 Current therapy:arimidex Began 2017. Pt. had a stroke on June 18. I have to really think about what I'm thinking before I say it. I have to be careful when I drink liquids. No other effects from stroke. Pt. fell in the back yard a few weeks ago. She was seen in the ED. She is still having pain from the fall. She was also seen by PCP last week for f/u fall. Appetite:It's off and on. Wt. down 6# over past year. Energy level:Fair. Denies fevers. Had RSV this past winter. Resp:denies cough or sob at rest, occ. 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 Past medical history, appointments, medications, allergies reviewed. No changes. EXAM: BP 154/75 Pulse 65 Temp 36.4 ?C (97.6 ?F) (Oral) Wt 90.1 kg (198 lb 10.2 oz) SpO2 94% BMI 37.23 kg/m? APPEARANCE Well appearing, alert, in no acute distress, well-hydrated, well nourished. HEART RRR with normal S1 and S2, no murmurs LUNG clear to auscultation BREAST FEMALE no mass/nodule b/l, scar to L upper/outer/radiation changes LYMPH NODES No cervical lymphadenopathy, No supraclavicular lymphadenopathy, and No axillary lymphadenopathy. ABDOMEN bowel sounds normoactive, soft, non-tender EXTREMITIES No edema NEURO Awake, alert and oriented x 3, Normal gait, and No involuntary motions. SKIN Skin color, texture, turgor normal, no suspicious rashes or lesions RADIOLOGY: Mammogram 07/14/24: IMPRESSION: There is no mammographic evidence of malignancy. Routine screening mammogram is recommended. Annual mammogram will be due in 1 year. BI-RADS Category 2: Benign ASSESSMENT/PLAN: 1. Encounter for follow-up surveillance of breast cancer - ICD9: V67.9, V10.3, ICD10: Z08, Z85.3 pT1b pN0sln MX ER/CO positive, HER2 negative by FISH invasive ductal carcinoma of the left breast. - No concerning findings on exam. - Tolerated arimidex well. - Reviewed mammogram with pt. - Pt. completed 5 years of AI therapy. - Continue follow up with PCP for routine care. - Mammogram due July 2025. - Follow up after above. - Pt. aware to call office with any questions/concerns. The patient indicates understanding of these issues and agrees with the plan. All documentation from previous visit of 06/25/23-Dr. Reyes/myself was copied and pasted, documentation has been reviewed and edited as necessary for today's visit. Sahra Orozco APRN.[facility] 07-21-2024 Telephone encounter Note Spoke with patient and scheduled no show 07/21 ov Tawanna Vega [facility] 07-21-2024 Miscellaneous Notes Spoke with patient and scheduled no show 07/21 ov Tawanna Vega Please inform pt. that mammogram looks good. Follow up as scheduled. Sahra Orozco APRN.CNP documented in this encounter [facility] 07-19-2024 Telephone encounter Note Please inform pt. that mammogram looks good. Follow up as scheduled. Sahra Orozco APRN.CNP [facility] Work Phone: 07-14-2024 History of Present illness Narrative Radiology Service Progress Note PATIENT NAME: Ciara Sawyer DATE OF SERVICE: July 14, 2024 TIME: 10:12 AM PATIENT IDENTITY VERIFICATION COMPLETED USING TWO (2) IDENTIFIERS: Name and Date of confirmed by patient verbally. FALL SCREENING: Has the patient had 2 falls in the last year or 1 fall with injury or currently using an Ambulatory Assistive Device (Walker, Cane, Wheelchair, Crutches, etc.)? Yes, Patient High Risk for Falls What interventions were put in place to prevent falls during this visit? Instructed Patient to Call for Help if Needed, Offered Assistance with Transfers/Clothing, and Increased Observations by Caregivers PATIENT GENDER DATA: Assigned female at . status: : No status: NO. PATIENT RELEVANT IMPLANT DATA REVIEWED: Yes PATIENT PRESENTS WITH AN IMPLANTABLE OR ATTACHED LEATHER SCRUBBER: No RADIOLOGY DEPARTMENT: Mammography PERIPHERAL IV DATA: Not applicable SIGNED BY: RT Tyree(R) July 14, 2024 10:12 AM documented in this encounter [facility] 07-14-2024 Note HNO ID: [id number] Author: EMMA BERGERON RT(Richy) Service: Radiology Author Type: Instrument Designer Type: Progress Notes Filed: 07/14/2024 10:12 Note Text: Radiology Service Progress Note PATIENT NAME: Ciara Sawyer DATE OF SERVICE: July 14, 2024 TIME: 10:12 AM PATIENT IDENTITY VERIFICATION COMPLETED USING TWO (2) IDENTIFIERS: Name and Date of confirmed by patient verbally. FALL SCREENING: Has the patient had 2 falls in the last year or 1 fall with injury or currently using an Ambulatory Assistive Device (Walker, Cane, Wheelchair, Crutches, etc.)? Yes, Patient High Risk for Falls What interventions were put in place to prevent falls during this visit? Instructed Patient to Call for Help if Needed, Offered Assistance with Transfers/Clothing, and Increased Observations by Caregivers PATIENT GENDER DATA: Assigned female at . status: : No status: NO. PATIENT RELEVANT IMPLANT DATA REVIEWED: Yes PATIENT PRESENTS WITH AN IMPLANTABLE OR ATTACHED LEATHER SCRUBBER: No RADIOLOGY DEPARTMENT: Mammography PERIPHERAL IV DATA: Not applicable SIGNED BY: RT Tyree(Richy) July 14, 2024 10:[address] [facility] 02-21-2024 Nurse Progress note Patient tolerated injection without incident. Patient left the unit without incident. Digitally Signed by Emma Denton RN on 02/21/2024 12:47 PM [facility] 10-29-2023 Note ORIGINAL EXAMINATION: BONE DENSITOMETRY 10/29/2023 1:41 pm TECHNIQUE: A bone density dual x-ray absorptiometry (DEXA) scan was performed of the axial (e.g. hips, spine) and/or appendicular (e.g. radius) skeleton as appropriate. COMPARISON: 10/28/2021. HISTORY: ORDERING SYSTEM PROVIDED HISTORY: Reason for Exam: Osteoporosis Screening FINDINGS: T Score Left Femoral Neck: -3.0 Left Femoral Neck: 0.518 (g/cm2) T Score Left Hip: -2.0 Left Hip: 0.698 (g/cm2) T Score Lumbar Spine: -1.3 Lumbar Spine: 0.906 (g/cmd2) BMD Change from previous Hip: 8.2% BMD Change from previous Lumbar Spine: 8.6% IMPRESSION: Osteoporosis by WHO criteria. World Health Organization criteria: (Comparing with young normal sex matched population) - Normal: T-score at or above -1 SD (standard deviation) - Osteopenia: T-score between -1 and -2.5 SD - Osteoporosis: T-score at or below -2.5 SD The NOF recommends that FDA-approved medical therapies be considered in post-menopausal women and men age >/= 50 years with a: * Hip or vertebral fracture, or * T-score of /= 20% for major osteoporotic fractures or * >/= 3% for hip fractures All treatment decisions require clinical judgement and consideration of individual patient factors, including patient preferences, comorbidities, previous drug use, risk factors not captured in the FRAX registered model (e.g., frailty, falls, vitamin D deficiency, increased bone turnover, interval significant decline in bone density) and possible under- or over-estimation of fracture risk by FRAX. Interpreted by: Umair Phan DO Preliminary Report By: Umair Phan DO Electronically signed By Umair Phan DO Dictated Date: 10/29/2023 2:29:14 PM Prelim Date: 10/29/2023 2:30:05 PM Sign Date: 10/29/2023 2:30:05 PM Ordering Provider: FRANK MORALES [facility] 07-31-2023 Evaluation + Plan note Future Scheduled TestsCalcium Level Ionized 07/31/23Phosphorus Level 07/31/23Thyroid Stimulating Hormone 07/31/23Complete Blood Count 01/18/24Lipid Profile 01/18/24epatitis C Antibody IgG 01/18/24PTH, Intact 07/31/23PTH, Intact 01/18/24Vitamin D Level 07/31/23Complete Metabolic Panel 07/31/23Complete Metabolic Panel 01/18/24N-Terminal proBNP 01/18/24 [facility] 07-31-2023 Evaluation + Plan note Future Scheduled TestsCalcium Level Ionized 07/31/23Phosphorus Level 07/31/23Thyroid Stimulating Hormone 07/31/23Uric Acid 06/09/24Complete Blood Count 01/18/24Lipid Profile 06/09/24Lipid Profile 01/18/24epatitis C Antibody IgG 01/18/24PTH, Intact 07/31/23PTH, Intact 06/09/24PTH, Intact 01/18/24Vitamin D Level 07/31/23Vitamin D Level 06/09/24Complete Metabolic Panel 07/31/23Complete Metabolic Panel 01/18/24N-Terminal proBNP 01/18/24 [facility] 06-25-2023 History of Present illness Narrative Chief Complaint Patient presents with: Established Patient HPI: Ciara Sawyer is a 77 year old female who presents here today for follow up breast cancer. Per Dr. Reyes's previous note: H/o HTN and CHF (?etiology) who was found to have an abnormality in the left breast on recent screening mammogram. Patient underwent a bilateral digital screening mammogram in October 2016. There was a 6 mm irregular density noted in the left breast appearing to be indeterminate. Patient underwent a subsequent ultrasound study on 10/20/2016. There was a 6 mm oval mass with an indistinct margin observed in the left breast at 2:00 anterior depth. It was hypoechoic. It correlated with the mammogram findings. The patient was referred to Dr. Farrar who performed a core needle biopsy on 11/04/2016. The pathology demonstrated an invasive well-differentiated ductal carcinoma. ER/CO were both positive at 90% and 80% respectively. HER-2 was quantified at 2+. Underwent a left-sided lumpectomy with left axillary sentinel lymph node dissection on 12/03/2016. The final pathology demonstrated that within the lumpectomy specimen there was an 8 mm invasive ductal carcinoma. It was grade 1. DCIS was absent. There was a unifocal tumor. Margins were free of carcinoma. All were greater than 1 cm. 3 lymph nodes were retrieved. All were negative for disease. RADIATION:01/26/17 to 02/16/17 Current therapy:arimidex Began 2017. Pt. had a stroke on June 18. I have to really think about what I'm thinking before I say it. I have to be careful when I drink liquids. No other effects from stroke. No new concerns today. Appetite:It's ok. Wt. up. Energy level:Low. The same. I'm stressed to the limit. My sister in law and her son are living with us. It was supposed to be for a month and it's been a year. Denies fevers or recent illness. Resp:denies cough or sob at rest, occ. 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 Past medical history, appointments, medications, allergies reviewed. No changes. EXAM: BP 139/74 Pulse (!) 56 Temp 36.3 C (97.4 F) (Temporal) Wt 93.4 kg (205 lb 12.8 oz) SpO2 96% BMI 38.57 kg/m APPEARANCE Well appearing, alert, in no acute distress, well-hydrated, well nourished. HEART RRR with normal S1 and S2, no murmurs LUNG clear to auscultation BREAST FEMALE no mass/nodule b/l, scar to L upper/outer/radiation changes LYMPH NODES No cervical lymphadenopathy, No supraclavicular lymphadenopathy, and No axillary lymphadenopathy. ABDOMEN bowel sounds normoactive, soft, non-tender EXTREMITIES No edema NEURO Awake, alert and oriented x 3, Normal gait, and No involuntary motions. SKIN Skin color, texture, turgor normal, no suspicious rashes or lesions RADIOLOGY: Mammogram 06/23/23: IMPRESSION: BENIGN FINDING There is no mammographic evidence of malignancy. A 1 year screening mammogram is recommended. ASSESSMENT/PLAN: 1. Personal history of breast cancer - ICD9: V10.3, ICD10: Z85.3 (primary diagnosis) pT1b pN0sln MX ER/CO positive, HER2 negative by FISH invasive ductal carcinoma of the left breast. - No concerning findings on exam. - Tolerated arimidex well. - Reviewed mammogram with pt. - Pt. completed 5 years of AI therapy. - Mammogram due June 2024. - Follow up after above. - Pt. aware to call office with any questions/concerns. The patient indicates understanding of these issues and agrees with the plan. All documentation from previous visit of 06/01/22-Dr. Reyes/myself was copied and pasted, documentation has been reviewed and edited as necessary for today's visit. Sahra Orozco APRN.FIOR documented in this encounter [facility] 06-24-2023 Miscellaneous Notes Pt. Notified of mammogram results, will keep scheduled appt. Tomorrow. Teena Mueller LPN Please inform pt. that her mammogram looks good. Follow up as scheduled. Thank you. Sahra Orozco APRN.[employer] documented in this encounter [facility] 06-24-2023 Miscellaneous Notes June 24, 2023 PID: [id number] Ciara Sawyer [address] [place] [address] Dear Ms. Sawyer, We are pleased to inform you that the results of your recent breast imaging exam on 06/23/2023 are normal. Early detection of cancer is very important. We also understand recommendations regarding breast cancer screening are controversial. Please discuss with your primary care provider which strategy is best for you and whether a mammogram is right for you. Your imaging studies and report will be kept on file at [facility] as part of your permanent medical record and are available for your continuing care. Thank you for allowing us to help in meeting your health care needs. Sincerely, Dr. Coy Interpreting Radiologist [facility] (Normal over 40) documented in this encounter [facility] 06-23-2023 History of Present illness Narrative Radiology Service Progress Note PATIENT NAME: Ciara Sawyer DATE OF SERVICE: June 23, 2023 TIME: 11:43 AM PATIENT IDENTITY VERIFICATION COMPLETED USING TWO (2) IDENTIFIERS: Name and Date of confirmed by patient verbally. FALL SCREENING: Has the patient had 2 falls in the last year or 1 fall with injury or currently using an Ambulatory Assistive Device (Walker, Cane, Wheelchair, Crutches, etc.)? No PATIENT GENDER DATA: Female. status: : No status: NO. PATIENT RELEVANT IMPLANT DATA REVIEWED: Not Applicable PATIENT PRESENTS WITH AN IMPLANTABLE OR ATTACHED LEATHER SCRUBBER: No RADIOLOGY DEPARTMENT: Mammography PERIPHERAL IV DATA: Not applicable SIGNED BY: Brittni Peterson June 23, 2023 11:43 AM documented in this encounter [facility] 01-14-2023 Note . MICRO - Microbiology PROCEDURE: Urine Culture [*1] SOURCE: Urine, Clean Catch BODY SITE: COLLECTED DATE/TIME: 01/11/2023 14:56 EST RECEIVED DATE/TIME: 01/12/2023 14:07 EST START DATE/TIME: 01/12/2023 14:07 EST FREE TEXT SOURCE: FINAL REPORTS Final Report [] Verified Date/Time/Personnel: 01/14/2023 07:55 EST 50,000 - 100,000 cfu/ml Escherichia coli PRELIMINARY REPORTS Preliminary Report [] Verified Date/Time/Personnel: 01/13/2023 10:54 EST 50,000 - 100,000 cfu/ml Escherichia coli MOHINI to follow SUSCEPTIBILITY RESULTS Escherichia coli Antibiotic MOHINI Dilut MOHINI Inter Ampicillin >16 Resistant Ampicillin/ 8/4 Susceptible Sulbactam Aztreonam <=4 Susceptible Cefazolin 16 Intermediate Cefotaxime <=2 Susceptible Cefuroxime 16 Intermediate Ciprofloxacin <=0.25 Susceptible Ertapenem <=0.5 Susceptible Gentamicin <=2 Susceptible Imipenem <=1 Susceptible Levofloxacin <=0.5 Susceptible Meropenem <=1 Susceptible Minocycline <=4 Susceptible Nitrofurantoin <=32 Susceptible Piperacillin/ <=8 Susceptible Tazobactam Trimethoprim/ <=0.5/9.5 Susceptible Sulfa Performing Locations *1: This test was performed at: [facility], [address] [place] [address], [id number] , [facility] ([place]) 06-01-2022 History of Present illness Narrative Chief Complaint Patient presents with: Established Patient HPI: Ciara Sawyer is a 76 year old female who presents here today for follow up breast cancer. Per Dr. Reyes's previous note: H/o HTN and CHF (?etiology) who was found to have an abnormality in the left breast on recent screening mammogram. Patient underwent a bilateral digital screening mammogram in October 2016. There was a 6 mm irregular density noted in the left breast appearing to be indeterminate. Patient underwent a subsequent ultrasound study on 10/20/2016. There was a 6 mm oval mass with an indistinct margin observed in the left breast at 2:00 anterior depth. It was hypoechoic. It correlated with the mammogram findings. The patient was referred to Dr. Farrar who performed a core needle biopsy on 11/04/2016. The pathology demonstrated an invasive well-differentiated ductal carcinoma. ER/CO were both positive at 90% and 80% respectively. HER-2 was quantified at 2+. Underwent a left-sided lumpectomy with left axillary sentinel lymph node dissection on 12/03/2016. The final pathology demonstrated that within the lumpectomy specimen there was an 8 mm invasive ductal carcinoma. It was grade 1. DCIS was absent. There was a unifocal tumor. Margins were free of carcinoma. All were greater than 1 cm. 3 lymph nodes were retrieved. All were negative for disease. RADIATION:01/26/17 to 02/16/17 Current therapy:arimidex Began 2017. Pt. had a stroke on June 18. I have to really think about what I'm thinking before I say it. I have to be careful when I drink liquids. No other effects from stroke. No new concerns today. Appetite:Average. Ok. Wt. up. Energy level:Low. This weather and my joints. Denies fevers or recent illness. Resp:occ. cough in the evenings, +sinus drainage, denies sob at rest, occ. simons with steps/long distances h/o asthma Cardiac:denies chest pain/palpitations-followed by cardiology GI:denies abd pain, n/v, moving bowels regularly :denies dysuria/hematuria Extrem:chronic low back pain/L knee/feet followed by CPM Endo:denies hot flashes Neuro:denies symptoms of neuropathy Skin:denies rashes/lesions Heme:denies bleeding The ROS is otherwise negative. Past medical history, appointments, medications, allergies reviewed. No changes. EXAM: BP 100/62 Pulse (!) 54 Temp 36.1 C (97 F) (Temporal) Ht 155.6 cm (5' 1.25) Wt 94.6 kg (208 lb 8 oz) BMI 39.07 kg/m APPEARANCE Well appearing, alert, in no acute distress, well-hydrated, well nourished. HEART RRR with normal S1 and S2, no murmurs LUNG clear to auscultation BREAST FEMALE no mass/nodule b/l, scar to L upper/outer/radiation changes LYMPH NODES No cervical lymphadenopathy, No supraclavicular lymphadenopathy, and No axillary lymphadenopathy. ABDOMEN bowel sounds normoactive, soft, non-tender EXTREMITIES No edema NEURO Awake, alert and oriented x 3, Normal gait, and No involuntary motions. SKIN Skin color, texture, turgor normal, no suspicious rashes or lesions RADIOLOGY: Mammogram 05/28/22: IMPRESSION: BENIGN FINDING There is no mammographic evidence of malignancy. A 1 year screening mammogram is recommended. ASSESSMENT/PLAN: 1. Malignant neoplasm of central portion of left breast in female, estrogen receptor positive (HCC) - ICD9: 174.1, V86.0, ICD10: C50.112, Z17.0 pT1b pN0sln MX ER/CO positive, HER2 negative by FISH invasive ductal carcinoma of the left breast. - No concerning findings on exam. - Tolerating arimidex well. - Reviewed mammogram with pt. - Discontinue arimidex-has completed 5 years of therapy. - Follow up with cardiology as scheduled next week. - Mammogram due May 2023. - Follow up in one year. - Pt. aware to call office with any questions/concerns. The patient indicates understanding of these issues and agrees with the plan. All documentation from previous visit of 11/26/21-Dr. Reyes/myself was copied and pasted, documentation has been reviewed and edited as necessary for today's visit. Sahra Orozco APRN.FIOR documented in this encounter [facility] 05-29-2022 Miscellaneous Notes Pt. Notified mamm normal, will see on Wednesday as scheduled. Pt. Voiced understanding Teena Rehman LPN Please inform pt. that her mammogram looks good. Follow up as scheduled. Thank you. Sahra Orozco APRN.FIOR documented in this encounter [facility] 05-29-2022 Miscellaneous Notes June 01, 2022 PID: [id number] Ciara Lees Silver[address] [place] [address] Dear Neal Manuelnanantonio, We are pleased to inform you that the results of your recent breast imaging exam on 05/28/2022 are normal. Early detection of cancer is very important. We also understand recommendations regarding breast cancer screening are controversial. Please discuss with your primary care provider which strategy is best for you and whether a mammogram is right for you. Your imaging studies and report will be kept on file at [facility] as part of your permanent medical record and are available for your continuing care. Thank you for allowing us to help in meeting your health care needs. Sincerely, Dr. Alexis Interpreting Radiologist [facility] (Normal over 40) documented in this encounter [facility] 05-28-2022 History of Present illness Narrative Radiology Service Progress Note PATIENT NAME: Ciara Sawyer DATE OF SERVICE: May 28, 2022 TIME: 1:23 PM PATIENT IDENTITY VERIFICATION COMPLETED USING TWO (2) IDENTIFIERS: Name and Date of confirmed by patient verbally. FALL SCREENING: Has the patient had 2 falls in the last year or 1 fall with injury or currently using an Ambulatory Assistive Device (Walker, Cane, Wheelchair, Crutches, etc.)? No PATIENT GENDER DATA: Female. status: : No status: NO. PATIENT RELEVANT IMPLANT DATA REVIEWED: Not Applicable RADIOLOGY DEPARTMENT: Mammography PERIPHERAL IV DATA: Not applicable SIGNED BY: Jesusita Joe Mammo Tech May 28, 2022 1:23 PM documented in this encounter [facility] 12-25-2021 Miscellaneous Notes Scheduled and notified. Patient is aware of all information. Please contact patient to schedule as directed. Enednia Greene LPN Please inform pt. that her L breast US showed: There is no sonographic evidence of malignancy. The 1 cm x 0.4 cm x 0.7 cm normal lymph node in the left breast is benign. She will be due for b/l mammogram in 2022. OV in May. Thank you. Sahra Orozco APRN.FIOR documented in this encounter [facility] 12-24-2021 History of Present illness Narrative Radiology Service Progress Note PATIENT NAME: Ciraa Sawyer DATE OF SERVICE: December 24, 2021 TIME: 10:49 AM PATIENT IDENTITY VERIFICATION COMPLETED USING TWO (2) IDENTIFIERS: Name and Date of confirmed by patient verbally. FALL SCREENING: Has the patient had 2 falls in the last year or 1 fall with injury or currently using an Ambulatory Assistive Device (Walker, Cane, Wheelchair, Crutches, etc.)? Yes, Patient High Risk for Falls What interventions were put in place to prevent falls during this visit? Offered Assistance with Transfers/Clothing and Increased Observations by Caregivers PATIENT GENDER DATA: Female. status: : No status: NO. PATIENT RELEVANT IMPLANT DATA REVIEWED: Not Applicable RADIOLOGY DEPARTMENT: Ultrasound PERIPHERAL IV DATA: Not applicable SIGNED BY: Bianca Aguirre RDMS December 24, 2021 10:49 AM documented in this encounter [facility] 11-26-2021 History of Present illness Narrative Chief Complaint Patient presents with: Established Patient HPI: Ciara Sawyer is a 76 year old female who presents here today for follow up breast cancer. Per Dr. Reyes's previous note: H/o HTN and CHF (?etiology) who was found to have an abnormality in the left breast on recent screening mammogram. Patient underwent a bilateral digital screening mammogram in October 2016. There was a 6 mm irregular density noted in the left breast appearing to be indeterminate. Patient underwent a subsequent ultrasound study on 10/20/2016. There was a 6 mm oval mass with an indistinct margin observed in the left breast at 2:00 anterior depth. It was hypoechoic. It correlated with the mammogram findings. The patient was referred to Dr. Farrar who performed a core needle biopsy on 11/04/2016. The pathology demonstrated an invasive well-differentiated ductal carcinoma. ER/CO were both positive at 90% and 80% respectively. HER-2 was quantified at 2+. Underwent a left-sided lumpectomy with left axillary sentinel lymph node dissection on 12/03/2016. The final pathology demonstrated that within the lumpectomy specimen there was an 8 mm invasive ductal carcinoma. It was grade 1. DCIS was absent. There was a unifocal tumor. Margins were free of carcinoma. All were greater than 1 cm. 3 lymph nodes were retrieved. All were negative for disease. RADIATION:01/26/17 to 02/16/17 Current therapy:arimidex Began 2017. Pt. had a stroke on June 18. I have to really think about what I'm thinking before I say it. I have to be careful when I drink liquids. No other effects from stroke. I found a lump about a month ago. Appetite:Good. Wt. down 4# since 2021. Energy level:Fair. Denies fevers or recent illness. Resp:denies sob at rest, occ. simons with steps/long distances h/o asthma Cardiac:denies chest pain/palpitations-followed by cardiology GI:denies abd pain, n/v, moving bowels regularly :denies dysuria/hematuria Extrem:chronic low back pain/L knee/feet followed by CPM Endo:denies hot flashes Neuro:denies symptoms of neuropathy Skin:denies rashes/lesions Heme:denies bleeding The ROS is otherwise negative. Past medical history, appointments, medications, allergies reviewed. No changes. EXAM: BP 172/80 Pulse (!) 48 Temp 36.6 C (97.8 F) Ht 157.5 cm (5' 2.01) Wt 92.8 kg (204 lb 8 oz) SpO2 96% BMI 37.39 kg/m APPEARANCE Well appearing, alert, in no acute distress, well-hydrated, well nourished. HEART RRR with normal S1 and S2, no murmurs LUNG clear to auscultation BREAST FEMALE R no mass/nodule, L lateral pea sized nodule, tender, no skin change LYMPH NODES No cervical lymphadenopathy, No supraclavicular lymphadenopathy, and No axillary lymphadenopathy. ABDOMEN bowel sounds normoactive, soft, non-tender, non-distended, without organomegaly or palpable masses, no tenderness to palpation EXTREMITIES No edema NEURO Awake, alert and oriented x 3, Normal gait, and No involuntary motions. SKIN Skin color, texture, turgor normal, no suspicious rashes or lesions ASSESSMENT/PLAN: 1. Malignant neoplasm of central portion of left breast in female, estrogen receptor positive (HCC) - ICD9: 174.1, V86.0, ICD10: C50.112, Z17.0 (primary diagnosis) pT1b pN0sln MX ER/CO positive, HER2 negative by FISH invasive ductal carcinoma of the left breast. 3. Breast nodule - ICD9: 793.89, ICD10: N63.0 - New L lateral breast nodule. - Tolerating arimidex well. - Continue arimidex. - B/l screening mammogram due 2021. - L dx mamm/US soon. - Follow up pending above. - Pt. aware to call office with any questions/concerns. The patient indicates understanding of these issues and agrees with the plan. All documentation from previous visit of 04/21/21-Dr. Reyes/myself was copied and pasted, documentation has been reviewed and edited as necessary for today's visit. Sahra Orozco APRN.FIOR documented in this encounter [facility] Evaluation + Plan note Future Appointments Appointment Date:02/25/2021 01:30:00 PM Scheduled Provider:FRANK MORALES DO Location:[facility] Appointment Type:PC OV Appointment Date:03/14/2021 10:00:00 AM Scheduled Provider:SURAJ WEINER MD Location:[facility] Appointment Type:[facility] Future Scheduled TestsBasic Metabolic Panel 05/07/20Urinalysis 12/11/20Urine Culture 12/11/20Lipid Profile 05/07/20Vitamin D Level 05/07/20 [facility] Evaluation + Plan note Future Appointments Appointment Date:03/14/2021 10:00:00 AM Scheduled Provider:SURAJ WEINER MD Location:[facility] Appointment Type: OV Appointment Date:03/20/2021 01:30:00 PM Scheduled Provider:FRANK MORALES DO Location:[facility] Appointment Type:PC OV Diagnostic Tests PendingPTH, Intact 03/06/21 Future Scheduled TestsBasic Metabolic Panel 05/07/20Urinalysis 12/11/20Urine Culture 12/11/20Lipid Profile 05/07/20Vitamin D Level 05/07/20XR Chest 2 Views (PA & Lateral) 03/06/21XR Knee 3 Views Left 03/06/21 [facility] Evaluation + Plan note Future Appointments Appointment Date:05/09/2021 04:30:00 PM Scheduled Provider:FRANK MORALES DO Location:[facility] Appointment Type:PC OV Future Scheduled TestsBasic Metabolic Panel 05/07/20Urinalysis 12/11/20Urine Culture 12/11/20Lipid Profile 05/07/20PTH, Intact 03/10/21Vitamin D Level 05/07/20XR Chest 2 Views (PA & Lateral) 03/06/21XR Knee 3 Views Left 03/06/21 [facility] Evaluation + Plan note Future Appointments Appointment Date:10/09/2021 01:30:00 PM Scheduled Provider:FRANK MORALES DO Location:[facility] Appointment Type:PC Wellness Medicare Future Scheduled TestsAntinuclear Antibody Screen, Serum 07/10/21C-Reactive Protein 07/10/21Phosphorus Level 07/10/21Urinalysis 12/11/20Uric Acid 07/10/21Urine Culture 12/11/20Rheumatoid Factor 07/10/21PTH, Intact 07/10/21Sedimentation Rate Automated 07/10/21Vitamin D Level 07/10/21Complete Metabolic Panel 07/10/21N-Terminal proBNP 07/10/21 [facility] Evaluation + Plan note Future Appointments Appointment Date:03/13/2022 10:30:00 AM Scheduled Provider:FRANK MORALES DO Location:[facility] Appointment Type:PC OV Appointment Date:04/09/2022 01:00:00 PM Scheduled Provider:FRANK MORALES DO Location:[facility] Appointment Type: OV Diagnostic Tests PendingAntinuclear Antibody Screen, Serum 01/27/22Rheumatoid Factor 01/27/22 [facility] Evaluation + Plan note Future Appointments Appointment Date:10/23/2022 11:00:00 AM Scheduled Provider:FRANK MORALES DO Location:[facility] Appointment Type: OV Future Scheduled TestsCalcium Level Ionized 07/31/23Phosphorus Level 07/31/23Thyroid Stimulating Hormone 07/31/23Calcium Random Urine 07/30/22Calcium Random Urine 07/30/22Creatinine Random Urine 07/30/22Creatinine Random Urine 07/30/22PTH, Intact 07/31/23Vitamin D Level 07/31/23Complete Metabolic Panel 07/31/23 [facility] Evaluation + Plan note Future Appointments Appointment Date:10/23/2022 11:00:00 AM Scheduled Provider:FRANK MORALES DO Location:[facility] Appointment Type:PC OV Future Scheduled TestsCalcium Level Ionized 07/31/23epatic Function Panel 08/31/22Phosphorus Level 07/31/23Thyroid Stimulating Hormone 07/31/23Calcium Random Urine 07/30/22Creatinine Random Urine 07/30/22PTH, Intact 07/31/23Vitamin D Level 07/31/23Complete Metabolic Panel 07/31/23 [facility] Evaluation + Plan note Future Appointments Appointment Date:02/23/2023 10:00:00 AM Scheduled Provider:FRANK MORALES DO Location:[facility] Appointment Type:PC OV Future Scheduled TestsCalcium Level Ionized 07/31/23Phosphorus Level 07/31/23Thyroid Stimulating Hormone 07/31/23Calcium Random Urine 07/30/22Creatinine Random Urine 07/30/22PTH, Intact 07/31/23Vitamin D Level 07/31/23Complete Metabolic Panel 07/31/23 [facility] Evaluation + Plan note Future Appointments Appointment Date:04/23/2023 11:30:00 AM Scheduled Provider:FRANK MORALES DO Location:[facility] Appointment Type:PC OV Future Scheduled TestsCalcium Level Ionized 07/31/23Phosphorus Level 07/31/23Thyroid Stimulating Hormone 07/31/23Calcium Random Urine 07/30/22Creatinine Random Urine 07/30/22PTH, Intact 07/31/23Vitamin D Level 07/31/23Complete Metabolic Panel 07/31/23 [facility] Evaluation + Plan note Future Appointments Appointment Date:09/21/2023 11:00:00 AM Scheduled Provider:FRANK MORALES DO Location:[facility] Appointment Type:PC Wellness Medicare Future Scheduled TestsCalcium Level Ionized 07/31/23Phosphorus Level 07/31/23Thyroid Stimulating Hormone 5/25/24Calcium Random Urine 07/30/22Creatinine Random Urine 07/30/22PTH, Intact 07/31/23Vitamin D Level 07/31/23Complete Metabolic Panel 07/31/23 [facility] Evaluation + Plan note Future Appointments Appointment Date:09/21/2023 11:00:00 AM Scheduled Provider:FRANK MORALES DO Location:[facility] Appointment Type:PC Wellness Medicare Future Scheduled TestsCalcium Level Ionized 07/31/23Phosphorus Level 07/31/23Thyroid Stimulating Hormone 07/31/23PTH, Intact 07/31/23Vitamin D Level 07/31/23Complete Metabolic Panel 07/31/23 [facility] Evaluation + Plan note Future Appointments Appointment Date:01/18/2024 01:30:00 PM Scheduled Provider:FRANK MORALES DO Location:[facility] Appointment Type: OV Future Scheduled TestsCalcium Level Ionized 07/31/23Phosphorus Level 07/31/23Thyroid Stimulating Hormone 07/31/23Complete Blood Count 09/21/23Lipid Profile 09/21/23epatitis C Antibody IgG 09/21/23PTH, Intact 07/31/23PTH, Intact 09/21/23Vitamin D Level 07/31/23Complete Metabolic Panel 07/31/23Complete Metabolic Panel 09/21/23N-Terminal proBNP 09/21/23 [facility] Evaluation + Plan note Future Appointments Appointment Date:05/02/2024 09:45:00 AM Scheduled Provider: Location:[facility] Appointment Type:PC Nurse Appointment Date:07/18/2024 10:30:00 AM Scheduled Provider:FRANK MORALES DO Location:[facility] Appointment Type: OV Future Scheduled TestsCalcium Level Ionized 07/31/23Phosphorus Level 07/31/23Thyroid Stimulating Hormone 07/31/23Complete Blood Count 01/18/24Lipid Profile 01/18/24epatitis C Antibody IgG 01/18/24PTH, Intact 07/31/23PTH, Intact 01/18/24Vitamin D Level 07/31/23Complete Metabolic Panel 07/31/23Complete Metabolic Panel 01/18/24N-Terminal proBNP 01/18/24 [facility] Evaluation + Plan note Future Appointments Appointment Date:10/17/2024 01:30:00 PM Scheduled Provider: Location:[facility] Appointment Type:MEDS - Weight Management (AO) Appointment Date:10/17/2024 02:00:00 PM Scheduled Provider: Location:[facility] Appointment Type:NUT Diet Visit Individual Appointment Date:11/09/2024 11:30:00 AM Scheduled Provider:FRANK MORALES DO Location:[facility] Appointment Type:PC OV Future Scheduled TestsFerritin 09/28/24Folate Level 09/28/24Uric Acid 10/01/24Vitamin B12 Level 09/28/24A1C Hemoglobin 09/28/24Lipid Profile 09/28/24Iron Studies 09/28/24PTH, Intact 10/01/24Vitamin D Level 10/01/24US Elastography Liver Only 09/28/24 [facility] Evaluation + Plan note Future Appointments Appointment Date:10/17/2024 01:30:00 PM Scheduled Provider: Location:[facility] Appointment Type:MEDS - Weight Management (AO) Appointment Date:10/17/2024 02:00:00 PM Scheduled Provider: Location:[facility] Appointment Type:NUT Diet Visit Individual Appointment Date:11/09/2024 11:30:00 AM Scheduled Provider:FRANK MORALES DO Location:[facility] Appointment Type:PC OV Future Scheduled TestsComplete Blood Count 11/20/24US Elastography Liver Only 09/28/24NM Parathyroid Study 10/09/24 [facility] Evaluation note No assessment inform ation available [facility] Work Phone: Evaluation note Diagnosis Malignant neoplasm of central portion of left breast in female, estrogen receptor positive (HCC)- Primary Encounter for screening mammogram for high-risk patient Breast nodule Other (abnormal) findings on radiological examination of breast [facility] Malignant neoplasm of central portion of left breast in female, estrogen receptor positive (HCC) Breast nodule Other (abnormal) findings on radiological examination of breast documented in this encounter [facility] note* Diagnosis Malignant neoplasm of central portion of left breast in female, estrogen receptor positive (HCC) Breast nodule Other (abnormal) findings on radiological examination of breast documented in this encounter [facility] note* Diagnosis Malignant neoplasm of central portion of left breast in female, estrogen receptor positive (HCC)- Primary Encounter for screening mammogram for high-risk patient documented in this encounter [facility] note* Diagnosis Malignant neoplasm of central portion of left breast in female, estrogen receptor positive (HCC) Encounter for screening mammogram for high-risk patient documented in this encounter [facility] note* Diagnosis Malignant neoplasm of central portion of left breast in female, estrogen receptor positive (HCC) Encounter for screening mammogram for high-risk patient documented in this encounter [facility] note* Diagnosis Personal history of breast cancer- Primary Personal history of malignant neoplasm of breast Encounter for screening mammogram for high-risk patient documented in this encounter [facility] note* Diagnosis Personal history of breast cancer Personal history of malignant neoplasm of breast Encounter for screening mammogram for high-risk patient [facility] Narrative No data available for this section [facility] Hospital Discharge instructions No data available for this section [facility] Progress note No data available for this section [facility] Reason for referral (narrative)* Diagnostic Procedure Only (Routine) - Authorized Specialty Diagnoses / Procedures Referred By Contac t Referred To Contact [facility] Diagnoses Malignant neoplasm of central portion of left breast in female, estrogen receptor positive (HCC) Breast nodule Procedures US BREAST LTD LT US BREAST UNI REAL TIME WITH IMAGE LIMITED Sahra Orozco APRN.FIOR [address] [place] [address] [facility] [address] [address] Referral ID Status Reason Start Date Expiration Date Visits Requested Visits Authorized [id number] Authorized Auto-Generat ed Referral 11/26/2021 12/26/2022 1 1 * Diagnostic Procedure Only (Routine) - Authorized Specialty Diagnoses / Procedures Referred By Contac t Referred To Contact [facility] Diagnoses Malignant neoplasm of central portion of left breast in female, estrogen receptor positive (HCC) Breast nodule Procedures LOCO DIAGNOSTIC LT DIAGNOSTIC MAMMOGRAPHY COMPUTER-AIDED DETCJ UNI Sahra Orozco APRN.TOBACCO FARMWORKER [address] [place] [address] [facility] [address] [place] [address] Referral ID Status Reason Start Date Expiration Date Visits Requested Visits Authorized [id number] Authorized Auto-Generat ed Referral 11/26/2021 12/26/2022 1 1 * Diagnostic Procedure Only (Routine) - Pending Review Specialty Diagnoses / Procedures Referred By Kayleigh t Referred To Contact [facility] Diagnoses Malignant neoplasm of central portion of left breast in female, estrogen receptor positive (HCC) Encounter for screening mammogram for high-risk patient Procedures LOCO SCREENING W RENATO SCREENING DIGITAL BREAST TOMOSYNTHESIS BI SCREENING MAMMOGRAPHY BI 2-VIEW BREAST INC CAD Sahra Orozco APRN.TOBACCO FARMWORKER [address] [place] [address] [facility] [address] [place] [address] Referral ID Status Reason Start Date Expiration Date Visits Requested Visits Authorized [id number] Pending Review Auto-Generat ed Referral 11/26/2021 12/26/2022 1 1 [facility] for referral (narrative)* Diagnostic Procedure Only (Routine) - Closed Specialty Diagnoses / Procedures Referred By Kayleigh hassan Referred To Contact [facility] Diagnoses Malignant neoplasm of central portion of left breast in female, estrogen receptor positive (HCC) Breast nodule Procedures US BREAST LTD LT US BREAST UNI REAL TIME WITH IMAGE LIMITED Sahra Orozco APRN.TOBACCO FARMWORKER [address] [place] [address] [facility] [address] [place] [address] Referral ID Status Reason Start Date Expiration Date V isits Requested Visits Authorized [id number] Closed Auto-Generate d Referral 11/26/2021 12/26/2022 1 1 [facility] for referral (narrative)* Diagnostic Procedure Only (Routine) - Pending Review Specialty Diagnoses / Procedures Referred By Kayleigh t Referred To Contact [facility] Diagnoses Malignant neoplasm of central portion of left breast in female, estrogen receptor positive (HCC) Encounter for screening mammogram for high-risk patient Procedures LOCO SCREENING SCREENING MAMMOGRAPHY BI 2-VIEW BREAST INC Sahra Dutta APRN.TOBACCO FARMWORKER [address] [place] [address] [facility] [address] [place] [address] Referral ID Status Reason Start Date Expiration Date Visits Requested Visits Authorized [id number] Pending Review Auto-Generat ed Referral 06/01/2022 07/01/2023 1 1 [facility] for referral (narrative)* Diagnostic Procedure Only (Routine) - Pending Review Specialty Diagnoses / Procedures Referred By Kayleigh hassan Referred To Contact [facility] Diagnoses Personal history of breast cancer Encounter for screening mammogram for high-risk patient Procedures LOCO SCREENING W RENATO SCREENING DIGITAL BREAST TOMOSYNTHESIS BI SCREENING MAMMOGRAPHY BI 2-VIEW BREAST INC Sahra Dutta APRN.TOBACCO FARMWORKER [address] [place] [address] [facility] [address] [place] [address] Referral ID Status Reason Start Date Expiration Date Visits Requested Visits Authorized [id number] Pending Review Auto-Generat ed Referral 06/25/2023 07/24/2024 1 1 [facility] for referral (narrative)No reason for referral [facility] Work Phone: Reason for visit Narrative* Diagnostic Procedure Only (Routine) - Closed Specialty Diagnoses / Procedures Referred By Kayleigh t Referred To Contact [facility] Diagnoses Malignant neoplasm of central portion of left breast in female, estrogen receptor positive (HCC) Breast nodule Procedures LOCO DIAGNOSTIC LT DIAGNOSTIC MAMMOGRAPHY COMPUTER-AIDED DETCJ UNI Sahra Orozco, SAFETY NET MAKER.TOBACCO FARMWORKER [address] [place] [address] [facility] [address] [place] [address] Referral ID Status Reason Start Date Expiration Date V isits Requested Visits Authorized [id number] Closed Auto-Generate d Referral 11/26/2021 12/26/2022 1 1 [facility] for visit Narrative* Diagnostic Procedure Only (Routine) - Closed Specialty Diagnoses / Procedures Referred By Kayleigh hassan Referred To Contact [facility] Diagnoses Malignant neoplasm of central portion of left breast in female, estrogen receptor positive (HCC) Encounter for screening mammogram for high-risk patient Procedures LOCO SCREENING W RENATO SCREENING DIGITAL BREAST TOMOSYNTHESIS BI SCREENING MAMMOGRAPHY BI 2-VIEW BREAST INC [facility] Sahra Orozco, SAFETY NET MAKER.TOBACCO FARMWORKER [address] [place] [address] [facility] [address] [place] [address] Referral ID Status Reason Start Date Expiration Date V isits Requested Visits Authorized [id number] Closed Auto-Generate d Referral 11/26/2021 12/26/2022 1 1 [facility] for visit Narrative* Diagnostic Procedure Only (Routine) - Closed Specialty Diagnoses / Procedures Referred By Kayleigh t Referred To Contact [facility] Diagnoses Malignant neoplasm of central portion of left breast in female, estrogen receptor positive (HCC) Encounter for screening mammogram for high-risk patient Procedures LOCO SCREENING SCREENING MAMMOGRAPHY BI 2-VIEW BREAST INC [facility] Sahra Orozco, SAFETY NET MAKER.TOBACCO FARMWORKER [address] [place] [address] [facility] [address] [place] [address] Referral ID Status Reason Start Date Expiration Date V isits Requested Visits Authorized [id number] Closed Auto-Generate d Referral 06/01/2022 07/01/2023 1 1 [facility] Diagnostic Procedure Only (Routine) - Closed Specialty Diagnoses / Procedures Referred By Contsusana t Referred To Contact [facility] Diagnoses Personal history of breast cancer Encounter for screening mammogram for high-risk patient Procedures LOCO SCREENING W RENATO SCREENING DIGITAL BREAST TOMOSYNTHESIS BI SCREENING MAMMOGRAPHY BI 2-VIEW BREAST INC Sahra Dutta, SAFETY NET MAKER.TOBACCO FARMWORKER [address] [place] [address] Phone: tel: fax: [facility] [address] [place] [address] Referral ID Status Reason Start Date Expiration Date V isits Requested Visits Authorized [id number] Closed Auto-Generated Referral Patient Cleared - INN Insurance Found 06/25/2023 07/24/2024 1 1 [facility] Chief Complaint and Reason for Visit Chief Complaint LEG WEAKNESS. RX HER E. Chief Complaint PALPITATIONS Chief Complaint Admit Date LEG WEAKNESS. RX HERE February 22 10:30am PAIN- COPY PCP April 14, 2024 3 :38pm PAIN- COPY PCP June 06, 2024 10:2 0am Chief Complaint Admit Date PAIN- COPY PCP June 06, 2024 10:2 0am Chest pain July 04, 2024 4:1 7pm XRAY July 27, 2024 1:33p m PAIN- COPY PCP September 05, 2024 9:00a m Chief Complaint Admit Date PAIN- COPY PCP June 06, 2024 10:2 0am Chest pain July 04, 2024 4:1 7pm XRAY July 27, 2024 1:33p m PAIN- COPY PCP September 05, 2024 9:00a m ELEVATED LIVER ENZYMES September 14, 2024 1 0:47am Family History No Family History Records Found Relationship Condition Age at Onset Recorded Date/T tomas Not Specified Malignant neoplasm of breast Unknown mother Cerebrovascular accident (CVA) Unknown Cardiac disease Unknown father Cardiac disease Unknown brother Malignant neoplasm Unknown Advance Directives No Advanced Directives Records Found Advance Directive Response Recorded Date/ Time Advance Directives No December 25, 2014 3:30pm Living Will No March 07 018 11:18am Power of Security Developer No March 07, 2018 11:18am Advance Directive Response Recorded Date/ Time Advance Directives No December 25, 2014 2:30pm Living Will No March 07 018 10:18am Power of Security Developer No March 07, 2018 10:18am Advance Directive Response Recorded Date/ Time Advance Directives No December 25, 2014 3:30pm Advance Directive Response Recorded Date/ Time Do you have a Healthcare Power of Security Developer? No July 04, 2024 5:17pm Advance Directives No December 25, 2014 3:30pm Summary Purpose Additional Source Comments Care Team (unrecognized sect ion and content) Core Sucker Relationship Specialty Start Date End Date Frank Morales DO PCP - General Family Medicine 02/22/19 Piper Ross MD, [address] [place] [address] Physician Radiation Oncology 01/07/17 Core Sucker Relationship Specialty Start Date End Date Frank Morales DO PCP - General Family Medicine 02/22/19 Piper Ross MD, [address] [place] [address] Physician Radiation Oncology 01/07/17 Core Sucker Relationship Specialty Start Date End Date Frank Morales DO PCP - General Family Medicine 02/22/19 Piper Ross MD, [address] [place] [address] Physician Radiation Oncology 01/07/17 Core Sucker Relationship Specialty Start Date End Date Frank Morales DO PCP - General Family Medicine 02/22/19 Piper Ross MD, [address] [place] [address] Physician Radiation Oncology 01/07/17 Team Status: Active Member Role Status Dates Zaida Berger AIRCRAFT LAYOUT WORKER, AIRCRAFT LAYOUT WORKER-C Family Provider Active Dr. Frank Morales DO Primary Care Provider Active Team Status: Inactive Member Role Status Dates Dr. Frank Morales DO Primary Care Provider Active Dr. Rogelio Riojas MD Attending Provider, Refe rring Provider Active Core Sucker Relationship Specialty Start Date End Date Frank Morales DO [address] [place] [address] PCP - General Family Medicine 02/22/19 Piper Ross MD, [address] [place] [address] Physician Radiation Oncology 01/07/17 Core Sucker Relationship Specialty Start Date End Date Frank Morales DO [address] [place] [address] PCP - General Family Medicine 02/22/19 Piper Ross MD, [address] [place] [address] Physician Radiation Oncology 01/07/17 Core Sucker Relationship Specialty Start Date End Date Frank Morales DO [address] [place] [address] PCP - General Family Medicine 02/22/19 Piper Ross MD, [address] [place] [address] Physician Radiation Oncology 01/07/17 Team Status: Inactive Member Role Status Dates Dr. Frank Morales DO Primary Care Provider Active Dian Jones PA, PA Attending Provider, Referr ing Provider Active Core Sucker Relationship Specialty Start Date End Date Frank Morales DO [address] [place] [address] PCP - General Family Medicine 02/22/19 Piper Ross MD, MD [address] [place] [address] Physician Radiation Oncology 01/07/17 Core Sucker Relationship Specialty Start Date End Date Frank Morales DO [address] [place] [address] PCP - General Family Medicine 02/22/19 Piper Ross MD [address] [place] [address] Physician Radiation Oncology 01/07/17 Core Sucker Relationship Specialty Start Date End Date Frank Morales DO [address] [place] [address] PCP - General Family Medicine 02/22/19 Piper Ross MD [address] [place] [address] Physician Radiation Oncology 01/07/17 Core Sucker Relationship Specialty Start Date End Date Frank Morales DO [address] [place] [address] PCP - General Family Medicine 02/22/19 Piper Ross MD [address] [place] [address] Physician Radiation Oncology 01/07/17 Core Sucker Relationship Specialty Start Date End Date Frank Morales DO [address] [place] [address] PCP - General Family Medicine 02/22/19 Piper Ross MD [address] [place] [address] Physician Radiation Oncology 01/07/17 Team Status: Inactive Member Role Status Dates Dr. Frank Morales DO Primary Care Provider Active Start: February 23, 2024 End: February 23, 2024 Dr. Frank Morales DO Attending Provider Active St art: February 23, 2024 End: February 23, 2024 Team Status: Inactive Member Role Status Dates Dr. Frank Morales DO Primary Care Provider Active Start: April 14, 2024 End: April 14, 2024 Dr. Maryann Jackson MD Attending Provider Active Start: April 14, 2024 End: April 14, 2024 Dr. Maryann Jackson MD Referring Provider Active Start: April 14, 2024 End: April 14, 2024 Team Status: Inactive Member Role Status Dates Dr. Frank Morales DO Primary Care Provider Active Start: June 06, 2024 End: June 06, 2024 Dr. Maryann Jackson MD Attending Provider Active Start: June 06, 2024 End: June 06, 2024 Dr. Maryann Jackson MD Referring Provider Active Start: June 06, 2024 End: June 06, 2024 Core Sucker Relationship Specialty Start Date End Date Frank Morales DO [address] [place] [address] PCP - General Family Medicine 02/22/19 Piper Ross MD [address] [place] [address] Physician Radiation Oncology 01/07/17 Core Sucker Relationship Specialty Start Date End Date Frank Morales DO [address] [place] [address] PCP - General Family Medicine 02/22/19 Piper Ross MD [address] [place] [address] Physician Radiation Oncology 01/07/17 Team Status: Active Member Role/Relationship Status Dates Dr. Frank Morales DO Primary Care Provider Active Team Status: Inactive Member Role/Relationship Status Dates Dr. Frank Morales DO Primary Care Provider Active Start: June 06, 2024 End: June 06, 2024 Dr. Maryann Jackson MD Attending Provider Active Start: June 06, 2024 End: June 06, 2024 Dr. Maryann Jackson MD Referring Provider Active Start: June 06, 2024 End: June 06, 2024 Team Status: Inactive Member Role/Relationship Status Dates Dr. Frank Morales DO Primary Care Provider Active Start: July 04, 2024 End: July 04, 2024 Dr. Keven Orourke DO Attending Provider Active Start: July 04, 2024 End: July 04, 2024 Dr. Keven Orourke DO Emergency Provider Active Start: July 04, 2024 End: July 04, 2024 Team Status: Inactive Member Role/Relationship Status Dates Dr. Frank Morales DO Primary Care Provider Active Start: July 27, 2024 End: July 27, 2024 Dr. Josr Gomez MD Attending Provider Active S tart: July 27, 2024 End: July 27, 2024 Team Status: Inactive Member Role/Relationship Status Dates Dr. Frank Morales DO Primary Care Provider Active Start: September 05, 2024 End: September 05, 2024 Dr. Maryann Jackson MD Attending Provider Active Start: September 05, 2024 End: September 05, 2024 Dr. Maryann Jackson MD Referring Provider Active Start: September 05, 2024 End: September 05, 2024 Team Status: Inactive Member Role/Relationship Status Dates Dr. Frank Morales DO Primary Care Provider Active Start: September 14, 2024 End: September 14, 2024 Dr. Maryann Jackson MD Attending Provider Active Start: September 14, 2024 End: September 14, 2024 Dr. Maryann Jackson MD Referring Provider Active Start: September 14, 2024 End: September 14, 2024 Goals (unrecognized section and content) Goals may be documented in a n alternate section Source Comments (unrecognize d section and content) In the event this informatio n is protected by the Federal Confidentiality of Alcohol and Drug Abuse Patient Records regulations: The Federal rules restrict any use of the information to criminally investigate or prosecute any alcohol or drug abuse patient.[facility] the event this information is protected by the Federal Confidentiality of Alcohol and Drug Abuse Patient Records regulations: The Federal rules restrict any use of the information to criminally investigate or prosecute any alcohol or drug abuse patient.[facility] the event this information is protected by the Federal Confidentiality of Alcohol and Drug Abuse Patient Records regulations: The Federal rules restrict any use of the information to criminally investigate or prosecute any alcohol or drug abuse patient.[facility] the event this information is protected by the Federal Confidentiality of Alcohol and Drug Abuse Patient Records regulations: The Federal rules restrict any use of the information to criminally investigate or prosecute any alcohol or drug abuse patient.[facility] the event this information is protected by the Federal Confidentiality of Alcohol and Drug Abuse Patient Records regulations: The Federal rules restrict any use of the information to criminally investigate or prosecute any alcohol or drug abuse patient.[facility] the event this information is protected by the Federal Confidentiality of Alcohol and Drug Abuse Patient Records regulations: The Federal rules restrict any use of the information to criminally investigate or prosecute any alcohol or drug abuse patient.[facility] the event this information is protected by the Federal Confidentiality of Alcohol and Drug Abuse Patient Records regulations: The Federal rules restrict any use of the information to criminally investigate or prosecute any alcohol or drug abuse patient.[facility] the event this information is protected by the Federal Confidentiality of Alcohol and Drug Abuse Patient Records regulations: The Federal rules restrict any use of the information to criminally investigate or prosecute any alcohol or drug abuse patient.[facility] the event this information is protected by the Federal Confidentiality of Alcohol and Drug Abuse Patient Records regulations: The Federal rules restrict any use of the information to criminally investigate or prosecute any alcohol or drug abuse patient.[facility] the event this information is protected by the Federal Confidentiality of Alcohol and Drug Abuse Patient Records regulations: The Federal rules restrict any use of the information to criminally investigate or prosecute any alcohol or drug abuse patient.[facility] the event this information is protected by the Federal Confidentiality of Alcohol and Drug Abuse Patient Records regulations: The Federal rules restrict any use of the information to criminally investigate or prosecute any alcohol or drug abuse patient.[facility] Hospital[facility] the event this information is protected by the Federal Confidentiality of Alcohol and Drug Abuse Patient Records regulations: The Federal rules restrict any use of the information to criminally investigate or prosecute any alcohol or drug abuse patient.[facility] Hospital[facility] the event this information is protected by the Federal Confidentiality of Alcohol and Drug Abuse Patient Records regulations: The Federal rules restrict any use of the information to criminally investigate or prosecute any alcohol or drug abuse patient.[facility] HospitalIn the event this information is protected by the Federal Confidentiality of Alcohol and Drug Abuse Patient Records regulations: The Federal rules restrict any use of the information to criminally investigate or prosecute any alcohol or drug abuse patient.[facility] Reason for Visit (unrecogniz ed section and content) Reason Comments Established Patient Reason Comments Radiology US Specialty Diagnoses / Procedures Referred By Contac t Referred To Contact [facility] Diagnoses Malignant neoplasm of central portion of left breast in female, estrogen receptor positive (HCC) Breast nodule Procedures US BREAST LTD LT US BREAST UNI REAL TIME WITH IMAGE LIMITED Sahra Orozco APRN.[employer] [address] [place] [address] [facility] [address] [place] [address] Referral ID Status Reason Start Date Expiration Date V isits Requested Visits Authorized [id number] Closed Auto-Generate d Referral 11/26/2021 12/26/2022 1 1 Reason Comments Results Reason Comments Established Patient Care Team (unrecognized sect ion and content) Care Team Personnel Name: FRANK MORALES Position: P4 Physician - Primary Care Member Role: Primary Care Physician Address: Address: [address] [place] [phone] [place] Care Team Related Persons Name: GEO ORTIZ INFORMATION SOURCE (unrecogn ized section and content) DATE CREATED AUTHOR 11/02/2023 [facility] ([place]) DATE CREATED AUTHOR AUTHOR'S ORGANIZ ATION 07/26/2024 [facility] DATE CREATED AUTHOR AUTHOR'S ORGANIZ ATION 09/24/2024 [facility] DATE CREATED AUTHOR AUTHOR'S ORGANIZ ATION 10/13/2024 [facility] FOR RECORDS PERTAINING TO PATIENTS WHO ARE OR HAVE BEEN ENROLLED IN A CHEMICAL DEPENDENCY/SUBSTANCEABUSE PROGRAM, SOME INFORMATION MAY BE OMITTED. This clinical summary was aggregated from multiple sources. Caution should be exercised in using it in the provision of clinical care. This summary normalizes information from multiple sources, and as a consequence, information in this document may materially change the coding, format and clinical context of patient data. In addition, data may be omitted in some cases. CLINICAL DECISIONS SHOULD BE BASED ON THE PRIMARY CLINICAL RECORDS. [facility] [employer] [facility]. provides no warranty or guarantee of the accuracy or completeness of information in this document.
[2024-10-13 18:14] LABS: AST(SGOT) 17 U/L (<=31); Alanine Aminotransfer ALT/SGPT 8 U/L (<=34); Albumin, Serum 3.9 g/dL (3.4-4.8); Alkaline Phosphatase 98 U/L (35-104); Anion Gap 12 (5-15); BUN 18 mg/dL (4-19); BUN/Creat Ratio 20.0 RATIO (10-20); Calcium,Total 9.7 mg/dL (7.6-11.0); Carbon Dioxide 26.0 mmol/L (21.0-32.0); Chloride 101 mmol/L (98-108); Globulin 2.7 g/dL (2.2-4.2); Glucose 109 mg/dL (70-99); Potassium 3.6 mmol/L (3.3-5.1)
== END | disposition home or self-care (01) ==
LOC: MTLAB 16:18
PROVIDERS: PCP Student in an Organized Health Care Education/Training Program; Referring Provider Internal Medicine Rheumatology; Visit Provider Internal Medicine Rheumatology
DX: M06.4 Inflammatory polyarthropathy (principal); R76.8 Other specified abnormal immunological findings in serum; K76.0 Fatty (change of) liver, not elsewhere classified; Z79.899 Other long term (current) drug therapy; Z87.39 Personal history of other diseases of the musculoskeletal system and connective tissue
CPT/HCPCS: 36415; 80053